=== PATIENT | female | born 1950 | race Caucasian/White ===

== ENCOUNTER → 2016-10-02 | Outpatient (CLI) | payer MEDICARE ==
--- NOTE | 2016-10-02 16:42 | PN ---
Mirta is 66 and the patient is being seen in follow-up regarding compliancy evaluation for obstructive sleep apnea. We will diagnose this patient with obstructive sleep apnea that has been moderate to severe in nature with an AHI of 21.5, worse during REM. Nevertheless, the patient had a difficult CPAP titration and ultimately she ended up being treated on a BiPAP and I have chose for her a VPAP auto with a pressure maximum IPAP of 16 and a pressure minimum EPAP of 10 cm of water. Today the patient is coming in for a compliancy follow-up. The patient is looking great. She reports much improvement in his sleep quality. Initially, she was having some difficulties knowing that had an upper respiratory tract infection and as her symptoms got better the patient became more compliant and she has been wearing her BiPAP every night. Her BiPAP use for more than 4 hours 87%. Average BiPAP use is 5 hours. The patient's AHI while on treatment is down to 0.6. She is using an AirFit P10 nasal pillow and she has no significant leaks around the nose mask. She is much more alert and awake during the day. Her Deming score is down to 6. PERTINENT PHYSICAL FINDINGS: PERTINENT VITALS: ; Blood pressure is 150/65, pulse 58, respirations 18, temperature 98.2, saturation is 95% on room air and weight is 225. GENERAL APPEARANCE: Calm, comfortable. HEENT: Short neck, crowding of posterior pharynx. There is no goiter, neck masses. LUNGS: Clear to auscultation. HEART: Sounds are regular rate and rhythm. Normal S1, S2. No murmurs. ABDOMEN: Soft, nontender. No organomegaly. EXTREMITIES: No edema. No cyanosis or clubbing. IMPRESSION: 1. Symptomatic obstructive sleep apnea, moderately severe, with an AHI of 21.5. The patient has seen significant clinical response and she has demonstrated good compliancy to BiPAP therapy. She is on a VPAP auto at this point with pressure IPAP max of 16 and a pressure minimum EPAP of 10. 2. Hypersomnia, improved. Deming score is down to 6. 3. Sleep fragmentation, improved. 4. Obesity with a body mass index of 39. 5. Hypertension. 6. Hyperlipidemia. 7. Cerebrovascular accident. 8. Chronic obstructive pulmonary disease with an FEV1 of 52% of predicted. PLAN: 1. Encourage further weight loss. 2. Continue BiPAP therapy at the same setting. The patient is on VPAP auto. 3. Continue using a small size AirFit P10 nasal pillow. 4. The patient is doing well. She is content with her treatment. Clinically, she has improved. Sleep quality has improved much with the treatment. I will see her back in a year's time in the main pulmonary clinic.
== END | disposition home or self-care (01) ==
LOC: SLEEP 13:31
PROVIDERS: ATTEND Internal Medicine Critical Care Medicine
DX: G47.33 Obstructive sleep apnea (adult) (pediatric) (principal); E66.9 Obesity, unspecified; Z68.39 Body mass index [BMI] 39.0-39.9, adult; Z86.73 Personal history of transient ischemic attack (TIA), and cerebral infarction without residual deficits; Z99.89 Dependence on other enabling machines and devices

== ENCOUNTER → 2016-11-26 | Outpatient (CLI) | payer MEDICARE ==
[2016-11-26 18:11] LABS: ALT 25 U/L (9-52); AST 20 U/L (14-36); Alkaline Phosphatase 36 U/L (38-126); Anion Gap 7 mmol/L; Blood Urea Nitrogen 21 mg/dL (7-17); Calcium 9.5 mg/dL (8.4-10.2); Carbon Dioxide 29 mmol/L (22-30); Chloride 105 mmol/L (98-107); Glucose 82 mg/dL (74-99); Non-African American GFR(MDRD) >60 (>60 ml/min/1.73 sqM); Potassium 3.7 mmol/L (3.5-5.1); Sodium 141 mmol/L (137-145); Total Bilirubin 0.5 mg/dL (0.2-1.3); Total Protein 7.2 g/dL (6.3-8.2)
== END | disposition home or self-care (01) ==
LOC: LABWHC1 17:10
PROVIDERS: ATTEND Internal Medicine Critical Care Medicine
DX: R60.0 Localized edema (principal)
CPT/HCPCS: 36415; 80053; 99214

== ENCOUNTER → 2016-12-05 | Outpatient (CLI) | payer MEDICARE ==
--- NOTE | 2016-12-06 11:03 | ECHOF ---
Referral Reason:I71.2 aneurysm of thoracic aorta MEASUREMENTS -------- HEIGHT: 157.5 cm WEIGHT: 97.5 kg BP: 110/53 RVIDd: 3.3 cm (< 3.3) IVSd: 1.3 cm (0.6 - 1.1) LVIDd: 4.5 cm (3.9 - 5.3) LVPWd: 1.2 cm (0.6 - 1.1) IVSs: 1.9 cm LVIDs: 3.2 cm LVPWs: 1.6 cm LA Diam: 3.1 cm (2.7 - 3.8) LAESV Index (A-L): 16.36 ml/m Ao Diam: 3.5 cm (2.0 - 3.7) AV Cusp: 2.0 cm (1.5 - 2.6) MV EXCURSION: 15.618 mm (> 18.000) MV EF SLOPE: 43 mm/s (70 - 150) EPSS: 0.4 cm MV E Gus: 0.79 m/s MV DecT: 302 ms MV A Gus: 0.70 m/s MV E/A Ratio: 1.13 FINDINGS -------- Sinus rhythm. This was a technically adequate study. The left ventricular size is normal. There is mild concentric left ventricular hypertrophy. Overall left ventricular systolic function is normal with, an EF between 60 - 65 %. The right ventricle is mildly enlarged. Normal LA size by volume 22+/-6 ml/m2. The right atrium is normal in size. Aortic valve is trileaflet and is mildly thickened. Trace to mild aortic regurgitation. Mild mitral annular calcification present. The tricuspid valve appears structurally normal. The pulmonic valve was not well visualized. The aortic root size is normal. Normal inferior vena cava with normal inspiratory collapse consistent with estimated right atrial pressure of 5 mmHg. The pericardium is normal. CONCLUSIONS -------- 1. Sinus rhythm. 2. Mild mitral annular calcification present. 3. The tricuspid valve appears structurally normal. 4. The pulmonic valve was not well visualized. 5. The aortic root size is normal. 6. Normal inferior vena cava with normal inspiratory collapse consistent with estimated right atrial pressure of 5 mmHg. 7. The pericardium is normal. 8. This was a technically adequate study. 9. The left ventricular size is normal. 10. There is mild concentric left ventricular hypertrophy. 11. Overall left ventricular systolic function is normal with, an EF between 60 - 65 %. 12. The right ventricle is mildly enlarged. 13. Normal LA size by volume 22+/-6 ml/m2. 14. Aortic valve is trileaflet and is mildly thickened. 15. Trace to mild aortic regurgitation. FINISHING RANGE FEEDER: Jaz Dunn RDCS
== END | disposition home or self-care (01) ==
LOC: RADECHMAIN 13:13
PROVIDERS: ATTEND Internal Medicine Critical Care Medicine
DX: I35.1 Nonrheumatic aortic (valve) insufficiency (principal); I51.7 Cardiomegaly; I35.8 Other nonrheumatic aortic valve disorders
CPT/HCPCS: 93306

== ENCOUNTER → 2017-01-18 | Outpatient (CLI) | payer MEDICARE ==
[2017-01-18 09:02] LABS: Non-African American GFR(MDRD) >60 (>60 ml/min/1.73 sqM)
== END | disposition home or self-care (01) ==
LOC: LABWHC1 08:18
PROVIDERS: ATTEND Surgery
DX: I71.2 Thoracic aortic aneurysm, without rupture (principal)
CPT/HCPCS: 36415; 82565

== ENCOUNTER → 2017-08-16 | Outpatient (CLI) | payer MEDICARE ==
[2017-08-16 10:29] LABS: Basophils % (A) 1 %; Eosinophils # (A) 0.2 k/uL (0-0.7); Eosinophils % (A) 3 %; HCT 46.5 % (34.0-46.0); HGB 14.8 gm/dL (11.4-16.0); Lymphocytes # (A) 1.8 k/uL (1.0-4.8); Lymphocytes % (A) 34 %; MCH 30.4 pg (25.0-35.0); MCHC 31.9 g/dL (31.0-37.0); MCV 95.4 fL (80.0-100.0); Mean Platelet Volume 6.6; Monocytes # (A) 0.3 k/uL (0-1.0); Monocytes % (A) 6 %; Neutrophils # (A) 2.8 k/uL (1.3-7.7); Neutrophils % (A) 54 %; Platelet Count 243 k/uL (150-450); RBC 4.87 m/uL (3.80-5.40); RDW 12.9 % (11.5-15.5); WBC 5.2 k/uL (3.8-10.6)
[2017-08-16 10:44] LABS: ALT 26 U/L (9-52); AST 23 U/L (14-36); Albumin 3.9 g/dL (3.5-5.0); Alkaline Phosphatase 37 U/L (38-126); Anion Gap 8 mmol/L; Blood Urea Nitrogen 16 mg/dL (7-17); Calcium 9.6 mg/dL (8.4-10.2); Carbon Dioxide 30 mmol/L (22-30); Chloride 106 mmol/L (98-107); Cholesterol 155 mg/dL (<200); Glucose 84 mg/dL (74-99); HDL Cholesterol 55 mg/dL (40-60); LDL Cholesterol,Calculated 70 mg/dL (0-99); Sodium 144 mmol/L (137-145); Total Bilirubin 0.5 mg/dL (0.2-1.3); Total Protein 6.7 g/dL (6.3-8.2); Triglycerides 152 mg/dL (<150)
== END | disposition home or self-care (01) ==
LOC: LABPAT 09:45
PROVIDERS: ATTEND Surgery
DX: Z01.818 Encounter for other preprocedural examination (principal); E78.5 Hyperlipidemia, unspecified; I10 Essential (primary) hypertension; E66.9 Obesity, unspecified; Z01.812 Encounter for preprocedural laboratory examination
CPT/HCPCS: 36415; 80053; 80061; 84443; 85025; 86850; 86900; 86901; 93005

== ENCOUNTER → 2017-08-16 | Outpatient (CLI) | payer MEDICARE ==
[2017-08-16 11:39] LABS: Anion Gap 8 mmol/L; Blood Urea Nitrogen 16 mg/dL (7-17); Carbon Dioxide 30 mmol/L (22-30); Chloride 106 mmol/L (98-107); Glucose 84 mg/dL (74-99); Sodium 144 mmol/L (137-145)
[2017-08-16 11:40] LABS: ALT 26 U/L (9-52); AST 23 U/L (14-36); Albumin 3.9 g/dL (3.5-5.0); Alkaline Phosphatase 37 U/L (38-126); Calcium 9.6 mg/dL (8.4-10.2); Cholesterol 155 mg/dL (<200); HDL Cholesterol 55 mg/dL (40-60); LDL Cholesterol,Calculated 70 mg/dL (0-99); Total Bilirubin 0.5 mg/dL (0.2-1.3); Total Protein 6.7 g/dL (6.3-8.2); Triglycerides 152 mg/dL (<150)
== END | disposition home or self-care (01) ==
LOC: LABWHC1 10:59
PROVIDERS: ATTEND Nurse Practitioner Family
DX: E78.5 Hyperlipidemia, unspecified (principal); I10 Essential (primary) hypertension; E66.9 Obesity, unspecified
CPT/HCPCS: 36415; 80053; 80061; 84443

== ENCOUNTER 2017-08-21 07:03 | Day surgery (SDC) | payer MEDICARE ==
[2017-08-15 15:50] VITALS: BMI 36.6
[~2017-08-21 07:03] MED LIST: DEXAMETHASONE SOD PHOSPHATE 10 MG/ML 1 ML VIAL IV ONE; HEPARIN SODIUM,PORCINE 5,000 UNIT/ML 1 ML VIAL SQ ONE; LACTATED RINGERS 1,000 ML IV SCH; ONDANSETRON 4 MG/2 ML VIAL IVP ONE; ceFAZolin IN SWFI 2 GM/20 ML SYRINGE IVP ONE
[2017-08-21] MEDS ORDERED: LIDOCAINE 1% 20 ML VIAL (10MG/ML) FOR IV START INTRADERMA ONE (07:40)
[2017-08-21] MEDS ORDERED: BUPIVACAINE (PF) 0.25% 30 ML VIAL SQ ONE (07:50)
[2017-08-21] MEDS ORDERED: NEOSTIGMINE 1 MG/ML 10 ML VIAL ONE (07:57)
[2017-08-21] MEDS ORDERED: fentaNYL (PF) 50 MCG/ML 2 ML AMP ONE (07:57)
[2017-08-21] MEDS ORDERED: SUCCINYLCHOLINE CHLORIDE 100 MG/5 ML SYR IV ONE (07:57)
[2017-08-21] MEDS ORDERED: MIDAZOLAM 2 MG/2 ML VIAL ONE (07:57)
[2017-08-21] MEDS ORDERED: GLYCOPYRROLATE 0.2 MG/ML 2 ML VIAL ONE (07:57)
[2017-08-21] MEDS ORDERED: PROPOFOL 10 MG/ML 20 ML VIAL IV ONE (07:57)
[2017-08-21] MEDS ORDERED: ePHEDrine SULFATE/0.9% NACL/PF 50 MG/5 ML SYRINGE IV ONE (07:57)
[2017-08-21] MEDS ORDERED: LIDOCAINE 1% INJ 10MG/ML (20 ML MDV) ONE (07:57)
[2017-08-21] MEDS ORDERED: ROCURONIUM BROMIDE 10 MG/ML 10 ML VIAL IV ONE (07:57)
--- NOTE | 2017-08-21 08:00 | P.GSHP ---
History of Present Illness H&P Date: 08/21/17 Chief Complaint: Incisional hernia This is a 67-year-old female who presents today for laparoscopic robotic- assisted repair of incisional hernia. Patient has developed an incisional hernia located at the medial aspect of her right subcostal incision related to previous gallbladder surgery years ago. Past Medical History Past Medical History: Coronary Artery Disease (CAD), Cancer, COPD, CVA/TIA, GERD /Reflux, Hyperlipidemia, Hypertension, Myocardial Infarction ([place]), Sleep Apnea/ CPAP/BIPAP Additional Past Medical History / Comment(s): TB in 1985. CPAP MACHINE , SKIN CANCER Last Myocardial Infarction Date:: 01/25/2006 History of Any Multi-Drug Resistant Organisms: None Reported Past Surgical History: Cholecystectomy, Heart Catheterization With Stent Additional Past Surgical History / Comment(s): cyst removed from thyroid, HEART CATH WITH STENT X2, SURGERY FOR thorasic aorta anyrusm Past Anesthesia/Blood Transfusion Reactions: Postoperative Nausea & Vomiting ( PONV) Date of Last Stent Placement:: 2009 Past Psychological History: Depression Smoking Status: Former smoker Past Alcohol Use History: Occasional Additional Past Alcohol Use History / Comment(s): STARTED SMOJKING AT AGE 15 QUIT IN 2011 SMOKED 1PPD Past Drug Use History: Marijuana Additional Drug Use History / Comment(s): OCCASIONAL USE - Past Family History Father Family Medical History: COPD, Myocardial Infarction ([place]) Mother Family Medical History: Hypertension Additional Family Medical History / Comment(s): Pacer, heart issues Medications and Allergies Home Medications Medication Instructions Recorded Confirmed Type Aspirin 81 mg PO DAILY 05/01/16 08/15/17 History Citalopram Hydrobromide [CeleXA] 20 mg PO DAILY 05/01/16 08/15/17 History Hydrochlorothiazide 12.5 mg PO DAILY 05/01/16 08/15/17 History Metoprolol Tartrate [Lopressor] 25 mg PO BID 05/01/16 08/15/17 History Simvastatin [Zocor] 40 mg PO QAM 05/01/16 08/15/17 History Tiotropium [place] [Spiriva] 1 cap INHALATION RT-DAILY 05/01/16 08/15/17 History amLODIPine [Norvasc] 10 mg PO DAILY 05/01/16 08/15/17 History cloNIDine HCL [Catapres] 0.1 mg PO TID 05/01/16 08/15/17 History Furosemide [Lasix] 20 mg PO DAILY 08/15/17 08/15/17 History Allergies Allergy/AdvReac Type Severity Reaction Status Date / Time levofloxacin [From Levaquin] Allergy Rash/Hives Verified 08/15/17 14:52 Penicillins Allergy Rash/Hives Verified 08/15/17 14:52 Sulfa (Sulfonamide Allergy Rash/Hives Verified 08/15/17 14:52 Antibiotics) sulfamethoxazole Allergy Rash/Hives Verified 08/15/17 14:52 [From Bactrim] trimethoprim [From Bactrim] Allergy Rash/Hives Verified 08/15/17 14:52 Surgical - Exam Vital Signs Temp Pulse Resp BP Pulse Ox 97.5 F L 47 L 20 125/72 96 08/21/17 07:26 08/21/17 07:26 08/21/17 07:26 08/21/17 07:26 08/21/17 07:26 - General well developed, well nourished, no distress - Eyes PERRL - ENT normal pinna - Neck no masses - Respiratory normal expansion - Cardiovascular Rhythm: regular - Abdomen Abdomen: soft, non tender Hernia: incisional (10 cm incisional hernia located at the medial aspect of right subcostal incision.) Assessment and Plan Assessment: Incisional hernia. We'll perform laparoscopic robotic assistance repair.
[2017-08-21] MEDS ORDERED: LACTATED RINGERS 1,000 ML IV ONE (08:37)
[2017-08-21] MEDS: HYDROmorphone 0.5 MG/0.5 ML SYRINGE IVP PRN ×4 (09:47→10:14)
[2017-08-21 09:50] VITALS: RESP 16; TEMP 97
--- NOTE | 2017-08-21 09:56 | P.OP ---
Date of Procedure: 08/21/17 Preoperative Diagnosis: Incarcerated incisional hernia Postoperative Diagnosis: Incarcerated incisional hernia Adhesions Procedure(s) Performed: Laparoscopic lysis of adhesions Laparoscopic robotic system repair of incarcerated incisional hernia Partial omentectomy Anesthesia: SALLY Surgeon: Jose Hamilton Estimated Blood Loss (ml): 5 Pathology: other (Omentum) Condition: stable Disposition: PACU Description of Procedure: The patient was placed on the operating table in the supine position. The patient received general anesthesia. His abdomen was prepped and draped usual fashion. Using a 5 mm optical trocar under direct visualization the peritoneal cavity was entered in the left upper quadrant. The abdomen was then insufflated. The laparoscope was placed back into the perineal cavity. Next a 8 mm robotic trocar was placed in the left lower quadrant and a 12 mm robotic trocar was placed in the left lateral position. The original 5 mm trocar was exchanged for a 8 mm robotic trocar. The patient's placed in the left side up position. And the patient was docked to the robot. The incisional hernia was visualized. Using hook cautery the peritoneum over the incisional hernia was excised. The adhesions in the abdominal cavity placed using electrocautery. The incarcerated omentum was dissected free from the hernia. The fascial opening was repaired using 0V LOC suture. Next a piece of 11 cm round ventral light ST mesh was placed into the. Cavity and secured with 2 OV lock suture. The patient was undocked the robot. The needles were retrieved. The fascia of the 12 mm trocar site was closed with 0 Ethibond suture. Skin was closed interrupted 3-0 Monocryl suture. Dermabond dressings was applied. Patient tolerated procedure well and was sent to recovery room stable condition.
[2017-08-21] MEDS ORDERED: HYDROcodone/APAP 7.5-325MG 1 EACH TAB PO ONE ×2 (10:48)
[2017-08-21] MEDS ORDERED: ONDANSETRON 4 MG/2 ML VIAL IVP ONE (12:00)
[2017-08-21 12:50] VITALS: PULSE 54
[2017-08-21 13:09] VITALS: BP 132/70
== END 2017-08-21 13:18 | disposition home or self-care (01) ==
LOC: OR 07:03
PROVIDERS: ATTEND Surgery
DX: K43.0 Incisional hernia with obstruction, without gangrene (principal); K66.0 Peritoneal adhesions (postprocedural) (postinfection); I25.10 Atherosclerotic heart disease of native coronary artery without angina pectoris; I10 Essential (primary) hypertension; I69.398 Other sequelae of cerebral infarction; E78.5 Hyperlipidemia, unspecified; J44.9 Chronic obstructive pulmonary disease, unspecified; G47.30 Sleep apnea, unspecified; Z99.89 Dependence on other enabling machines and devices; K21.9 Gastro-esophageal reflux disease without esophagitis; I25.2 Old myocardial infarction; F32.9 Major depressive disorder, single episode, unspecified; Z87.891 Personal history of nicotine dependence; Z86.11 Personal history of tuberculosis; Z85.828 Personal history of other malignant neoplasm of skin; Z95.5 Presence of coronary angioplasty implant and graft; Z79.82 Long term (current) use of aspirin; Z79.51 Long term (current) use of inhaled steroids; Z79.899 Other long term (current) drug therapy; Z88.1 Allergy status to other antibiotic agents; Z88.0 Allergy status to penicillin; Z88.2 Allergy status to sulfonamides
CPT/HCPCS: 88305; 49655; C1781; J2250; J1644; J1100; J2710; J2405; J2001; J3010; J0330; J2704; J1170; J0690; 86850; 86900; 86901

== ENCOUNTER → 2017-09-16 | Outpatient (CLI) | payer MEDICARE ==
[2017-09-16 13:09] VITALS: BP 143/63; PULSE 62; RESP 16; TEMP 98; BMI 41.7
--- NOTE | 2017-09-17 11:46 | P.HPBAR ---
Bariatric H&P - History & Physicial H&P Date: 09/16/17 History & Physicial: Visit/CC: Initial Visit Patient initial contact: Initial weight: 103.419 kg Initial weight in pounds: 228.00 Height: 5 ft 2 in Initial BMI: 41.7 Last weight: Current weight: 103.419 kg Current weight in pounds: 228.00 Current BMI: 41.7 [place] body weight (based on NIH guidelines): 49.895 kg Excess body weight loss: 0.0% The patient is a 67 year-old F who presents for Bariatric Assessment. The patient presents today for preoperative consultation. She has had lifetime problems obesity. Her BMI is 42. The patient is requesting sleeve gastrectomy. Past Medical History Past Medical History: Coronary Artery Disease (CAD), Cancer, COPD, CVA/TIA, GERD /Reflux, Hyperlipidemia, Hypertension, Myocardial Infarction ([place]), Sleep Apnea/ CPAP/BIPAP Additional Past Medical History / Comment(s): TB in 1985. CPAP MACHINE , SKIN CANCER Last Myocardial Infarction Date:: 01/25/2006 History of Any Multi-Drug Resistant Organisms: None Reported Past Surgical History: Cholecystectomy, Heart Catheterization With Stent, Hernia Repair Additional Past Surgical History / Comment(s): cyst removed from thyroid, HEART CATH WITH STENT X2, SURGERY FOR thoracic aortic aneurysm, Ventral hernia repair with mesh July 2017 Past Anesthesia/Blood Transfusion Reactions: Postoperative Nausea & Vomiting ( PONV) Date of Last Stent Placement:: 2009 Past Psychological History: Depression Smoking Status: Former smoker Past Alcohol Use History: Occasional Additional Past Alcohol Use History / Comment(s): STARTED SMOJKING AT AGE 15 QUIT IN 2011 SMOKED 1PPD Past Drug Use History: Marijuana Additional Drug Use History / Comment(s): OCCASIONAL USE - Past Family History Father Family Medical History: COPD, Myocardial Infarction ([place]) Mother Family Medical History: Hypertension Additional Family Medical History / Comment(s): Pacer, heart issues Surgical - Exam Vital Signs Temp Pulse Resp BP 98 F 62 16 143/63 09/16/17 13:05 09/16/17 13:05 09/16/17 13:05 09/16/17 13:05 - General well developed, no distress - Eyes PERRL - ENT normal pinna - Neck no masses - Respiratory normal expansion - Cardiovascular Rhythm: regular - Abdomen Abdomen: soft, non tender Bariatric Assessment & Plan Plan: The patient's has had morbid obesity. Her BMI is 42. The patient will be scheduled for EGD. We will attempt to obtain insurance authorization proceed gastric. However over the risks and benefits of significant gastric including issues with the gastric staple line such as bleeding perforation obstruction. Bariatric Checklist Checklist: Plan: Checklist: EGD: 1. Hiatal hernia: 2. H. Pylori: HgbA1c: Vitamin D: Smoking: Former smoker Primary care physician referral: dr. Gale Psychiatry clearance: Cardiology clearance: Sleep study: Diet journal: VTE risk score: VTE risk level: Rehab needs at discharge:
== END | disposition home or self-care (01) ==
LOC: BARWHC3 12:31
PROVIDERS: ATTEND Surgery
DX: Z01.818 Encounter for other preprocedural examination (principal); E66.01 Morbid (severe) obesity due to excess calories; Z68.41 Body mass index [BMI] 40.0-44.9, adult; Z87.891 Personal history of nicotine dependence
CPT/HCPCS: 99201

== ENCOUNTER 2017-11-11 09:00 | Day surgery (SDC) | payer MEDICARE ==
[2017-11-07 10:20] VITALS: BMI 36.6
[~2017-11-11 09:00] MED LIST changes: -DEXAMETHASONE SOD PHOSPHATE 10 MG/ML 1 ML VIAL IV ONE; -HEPARIN SODIUM,PORCINE 5,000 UNIT/ML 1 ML VIAL SQ ONE; +LIDOCAINE 1% 20 ML VIAL (10MG/ML) FOR IV START INTRADERMA PRN; +MIDAZOLAM 2 MG/2 ML VIAL IV PRN; -ONDANSETRON 4 MG/2 ML VIAL IVP ONE; -ceFAZolin IN SWFI 2 GM/20 ML SYRINGE IVP ONE
[2017-11-11 09:33] VITALS: TEMP 98.1
[2017-11-11] MEDS ORDERED: LIDOCAINE 1% INJ 10MG/ML (20 ML MDV) ONE (09:58)
[2017-11-11] MEDS ORDERED: PROPOFOL 10 MG/ML 20 ML VIAL IV ONE (09:58)
--- NOTE | 2017-11-11 09:59 | P.GSHP ---
History of Present Illness H&P Date: 11/11/17 Chief Complaint: Morbid obesity, GERD This is a 67-year-old female referred from Dr. asher. Patient presents today for EGD. She's had complaints of GERD. She's morbid obesity, her BMI is 37. Past Medical History Past Medical History: Coronary Artery Disease (CAD), Cancer, COPD, CVA/TIA, Hyperlipidemia, Hypertension, Myocardial Infarction ([place]), Sleep Apnea/CPAP/BIPAP Additional Past Medical History / Comment(s): TB in 1985. CPAP MACHINE. SKIN CANCER. RT SIDE WEAKNESS, SL DYSPHAGIA. Last Myocardial Infarction Date:: 01/25/2006 History of Any Multi-Drug Resistant Organisms: None Reported Past Surgical History: Cholecystectomy, Heart Catheterization With Stent, Hernia Repair Additional Past Surgical History / Comment(s): Cyst removed from thyroid, HEART CATH WITH STENT X2, SURGERY FOR Thoracic Aortic Aneurysm, Ventral hernia repair with mesh July 2017. EGD, COLONOSCOPY. Past Anesthesia/Blood Transfusion Reactions: Postoperative Nausea & Vomiting ( PONV) Date of Last Stent Placement:: 2009 Smoking Status: Former smoker - Past Family History Father Family Medical History: COPD, Myocardial Infarction ([place]) Mother Family Medical History: Hypertension Additional Family Medical History / Comment(s): Pacer, heart issues Sister(s) Family Medical History: Cancer Medications and Allergies Home Medications Medication Instructions Recorded Confirmed Type Aspirin 81 mg PO DAILY 05/01/16 11/11/17 History Citalopram Hydrobromide [CeleXA] 20 mg PO DAILY 05/01/16 11/11/17 History Hydrochlorothiazide 12.5 mg PO DAILY 05/01/16 11/11/17 History Metoprolol Tartrate [Lopressor] 25 mg PO BID 05/01/16 11/11/17 History Simvastatin [Zocor] 40 mg PO QAM 05/01/16 11/11/17 History Tiotropium [place] [Spiriva] 1 cap INHALATION RT-DAILY 05/01/16 11/11/17 History amLODIPine [Norvasc] 10 mg PO DAILY 05/01/16 11/11/17 History cloNIDine HCL [Catapres] 0.1 mg PO TID 05/01/16 11/11/17 History Furosemide [Lasix] 40 mg PO DAILY 09/16/17 11/11/17 History Umeclidinium [place] [Incruse 1 puff INHALATION DAILY 11/07/17 11/11/17 History Ellipta] Allergies Allergy/AdvReac Type Severity Reaction Status Date / Time levofloxacin [From Levaquin] Allergy Rash/Hives Verified 11/11/17 09:27 Penicillins Allergy Rash/Hives Verified 11/11/17 09:27 Sulfa (Sulfonamide Allergy Rash/Hives Verified 11/11/17 09:27 Antibiotics) sulfamethoxazole Allergy Rash/Hives Verified 11/11/17 09:27 [From Bactrim] trimethoprim [From Bactrim] Allergy Rash/Hives Verified 11/11/17 09:27 Surgical - Exam Vital Signs Temp Pulse Resp BP Pulse Ox 98.1 F 55 L 16 142/78 94 L 11/11/17 09:32 11/11/17 09:32 11/11/17 09:32 11/11/17 09:32 11/11/17 09:32 - General well developed, no distress - Eyes PERRL - ENT normal pinna - Neck no masses - Respiratory normal expansion - Cardiovascular Rhythm: regular - Abdomen Abdomen: soft, non tender Assessment and Plan Assessment: Morbid obesity. GERD. We'll perform EGD.
--- NOTE | 2017-11-11 10:09 | P.OP ---
Date of Procedure: 11/11/17 Preoperative Diagnosis: GERD Morbid obesity Postoperative Diagnosis: Morbid obesity Antral gastritis Hiatal hernia Mild esophagitis Procedure(s) Performed: EGD Anesthesia: MAC Surgeon: Jose Hamilton Pathology: other (Antrum, esophagus) Condition: stable Disposition: PACU Description of Procedure: The patient's placed on the endoscopy table lateral position. She received IV sedation. The gastroscope placed oropharynx and passed into the esophagus into the stomach. Scope was then placed through the pylorus. The first and second portion of the duodenum appeared normal. Scope was then brought back the antrum and this appeared mildly inflamed. A biopsies performed. The scope was then retroflexed and the remainder of the stomach appeared normal. The patient had a large sliding hiatal hernia. The GE junction was at 38 cm. The distal esophagus appeared mildly inflamed and a biopsies performed. The proximal esophagus appeared normal. The scope was withdrawn for patient.
[2017-11-11 10:13] VITALS: RESP 18
[2017-11-11 10:29] VITALS: BP 151/90; PULSE 54
== END 2017-11-11 10:40 | disposition home or self-care (01) ==
LOC: ORWHC2ENDO 09:00
PROVIDERS: ATTEND Surgery
DX: K29.70 Gastritis, unspecified, without bleeding (principal); E66.01 Morbid (severe) obesity due to excess calories; E78.5 Hyperlipidemia, unspecified; I10 Essential (primary) hypertension; I25.10 Atherosclerotic heart disease of native coronary artery without angina pectoris; I25.2 Old myocardial infarction; J44.9 Chronic obstructive pulmonary disease, unspecified; K21.0 Gastro-esophageal reflux disease with esophagitis; G47.33 Obstructive sleep apnea (adult) (pediatric); Z88.0 Allergy status to penicillin; Z87.891 Personal history of nicotine dependence; Z86.73 Personal history of transient ischemic attack (TIA), and cerebral infarction without residual deficits; Z85.828 Personal history of other malignant neoplasm of skin; K44.9 Diaphragmatic hernia without obstruction or gangrene; Z79.82 Long term (current) use of aspirin; Z99.89 Dependence on other enabling machines and devices; Z95.5 Presence of coronary angioplasty implant and graft; Z90.49 Acquired absence of other specified parts of digestive tract; Z82.49 Family history of ischemic heart disease and other diseases of the circulatory system; Z79.899 Other long term (current) drug therapy; Z88.1 Allergy status to other antibiotic agents; Z88.2 Allergy status to sulfonamides; Z79.51 Long term (current) use of inhaled steroids; Z68.36 Body mass index [BMI] 36.0-36.9, adult
CPT/HCPCS: 88305; 43239; J2001; J2704

== ENCOUNTER → 2017-11-25 | Outpatient (CLI) | payer MEDICARE ==
[2017-11-25 13:47] VITALS: BP 147/80; PULSE 54; RESP 14; TEMP 98.6; BMI 40.4
--- NOTE | 2017-11-25 15:25 | P.HPBAR ---
Bariatric H&P - History & Physicial H&P Date: 11/25/17 History & Physicial: Visit/CC: EGD results (working toward bariatric surgery requirements) Patient initial contact: Initial weight: 103.419 kg Initial weight in pounds: 228.00 Height: 5 ft 2 in Initial BMI: 41.7 Last weight: Current weight: 100.108 kg Current weight in pounds: 220.70 Current BMI: 40.4 [place] body weight (based on NIH guidelines): 49.895 kg Excess body weight loss: 6.1% The patient is a 67 year-old F who presents for Bariatric Assessment. Patient presents today for second preoperative visit. Patient is requesting undergo sleeve yesterday. She underwent recent EGD is found have evidence of a hiatal hernia and GERD. She is morbidly obese with a BMI of 41. Past Medical History Past Medical History: Coronary Artery Disease (CAD), Cancer, COPD, CVA/TIA, Hyperlipidemia, Hypertension, Myocardial Infarction ([place]), Sleep Apnea/CPAP/BIPAP Additional Past Medical History / Comment(s): TB in 1985. CPAP MACHINE. SKIN CANCER. RT SIDE WEAKNESS, SL DYSPHAGIA. Hiatal hernia Last Myocardial Infarction Date:: 01/25/2006 History of Any Multi-Drug Resistant Organisms: None Reported Past Surgical History: Cholecystectomy, Heart Catheterization With Stent, Hernia Repair Additional Past Surgical History / Comment(s): Cyst removed from thyroid, HEART CATH WITH STENT X2, SURGERY FOR Thoracic Aortic Aneurysm, Ventral hernia repair with mesh July 2017. EGD, COLONOSCOPY. Past Anesthesia/Blood Transfusion Reactions: Postoperative Nausea & Vomiting ( PONV) Date of Last Stent Placement:: 2009 Past Psychological History: Depression Smoking Status: Former smoker Past Alcohol Use History: Occasional Additional Past Alcohol Use History / Comment(s): STARTED SMOKING AT AGE 15, QUIT IN 2011 SMOKED 1PPD. Past Drug Use History: Marijuana Additional Drug Use History / Comment(s): PAST HISTORY - Past Family History Father Family Medical History: COPD, Myocardial Infarction ([place]) Mother Family Medical History: Hypertension Additional Family Medical History / Comment(s): Pacer, heart issues Sister(s) Family Medical History: Cancer Surgical - Exam Vital Signs Temp Pulse Resp BP 98.6 F 54 L 14 147/80 11/25/17 13:37 11/25/17 13:37 11/25/17 13:37 11/25/17 13:37 - General well developed, no distress - Respiratory normal expansion - Abdomen Abdomen: soft, non tender Bariatric Assessment & Plan Plan: Patient's understanding of the gastric sleeve was excellent. We went over the procedure again. We went over the risks and benefits of procedure. She is aware the risks of gastric perforation. She'll be scheduled for surgery once her authorization is complete. Bariatric Checklist Checklist: Plan: Checklist: EGD: 1. Hiatal hernia: 2. H. Pylori: HgbA1c: Vitamin D: Smoking: Former smoker Primary care physician referral: Bachelodor Psychiatry clearance: Cardiology clearance: Sleep study: Diet journal: VTE risk score: VTE risk level: Rehab needs at discharge:
== END | disposition home or self-care (01) ==
LOC: BARWHC3 12:55
PROVIDERS: ATTEND Surgery
DX: Z01.818 Encounter for other preprocedural examination (principal); Z87.891 Personal history of nicotine dependence
CPT/HCPCS: 99211

== ENCOUNTER → 2018-01-27 | Outpatient (CLI) | payer MEDICARE ==
[2018-01-27 12:49] VITALS: BMI 40.8
== END ==
LOC: BARWHC3 08:15
PROVIDERS: ATTEND Surgery
DX: E66.01 Morbid (severe) obesity due to excess calories (principal)
CPT/HCPCS: 97804

== ENCOUNTER → 2018-05-05 | Outpatient (CLI) | payer MEDICARE ==
[2018-05-05 14:41] VITALS: BP 151/72; PULSE 62; TEMP 97.9; BMI 40.0
--- NOTE | 2018-05-05 16:33 | P.HPBAR ---
Bariatric H&P - History & Physicial H&P Date: 05/05/18 History & Physicial: Visit/CC: preop cinic visit Patient initial contact: Initial weight: 103.419 kg Initial weight in pounds: 228.00 Height: 5 ft 2 in Initial BMI: 41.7 Last weight: Current weight: 99.337 kg Current weight in pounds: 219.00 Current BMI: 40.0 [place] body weight (based on NIH guidelines): 49.895 kg Excess body weight loss: 7.6% The patient is a 68 year-old F who presents for Bariatric Assessment. Patient presents for preoperative surgical consultation for sleeve gastrectomy. She is recently obtain authorization. Patient is morbidly obese with BMI of 40. Past Medical History Past Medical History: Coronary Artery Disease (CAD), Cancer, COPD, CVA/TIA, Hyperlipidemia, Hypertension, Myocardial Infarction ([place]), Sleep Apnea/CPAP/BIPAP Additional Past Medical History / Comment(s): TB in 1985. CPAP MACHINE. SKIN CANCER. RT SIDE WEAKNESS, SL DYSPHAGIA. Hiatal hernia Last Myocardial Infarction Date:: 01/25/2006 History of Any Multi-Drug Resistant Organisms: None Reported Past Surgical History: Cholecystectomy, Heart Catheterization With Stent, Hernia Repair Additional Past Surgical History / Comment(s): Cyst removed from thyroid, HEART CATH WITH STENT X2, SURGERY FOR Thoracic Aortic Aneurysm, Ventral hernia repair with mesh July 2017. EGD, COLONOSCOPY. Past Anesthesia/Blood Transfusion Reactions: Postoperative Nausea & Vomiting ( PONV) Date of Last Stent Placement:: 2009 Past Psychological History: Depression Smoking Status: Former smoker Past Alcohol Use History: Occasional Additional Past Alcohol Use History / Comment(s): STARTED SMOKING AT AGE 15, QUIT IN 2011 SMOKED 1PPD. Past Drug Use History: Marijuana Additional Drug Use History / Comment(s): PAST HISTORY - Past Family History Father Family Medical History: COPD, Myocardial Infarction ([place]) Mother Family Medical History: Hypertension Additional Family Medical History / Comment(s): Pacer, heart issues Sister(s) Family Medical History: Cancer Surgical - Exam Vital Signs Temp Pulse BP 97.9 F 62 151/72 05/05/18 14:32 05/05/18 14:32 05/05/18 14:32 - General well developed, no distress - Eyes PERRL - ENT normal pinna - Neck no masses - Respiratory normal expansion - Cardiovascular Rhythm: regular - Abdomen Abdomen: soft, non tender Bariatric Assessment & Plan Plan: Morbid obesity with BMI 40. Patient will be scheduled for sleeve gastrectomy. She has a good understanding of the sleeve gastrectomy. She understands the risks and benefits of the procedure. Bariatric Checklist Checklist: Plan: Checklist: EGD: 1. Hiatal hernia: 2. H. Pylori: HgbA1c: Vitamin D: Smoking: Former smoker Primary care physician referral: dr. Hesteror Psychiatry clearance: Cardiology clearance: Sleep study: Diet journal: VTE risk score: VTE risk level: Rehab needs at discharge:
== END ==
LOC: BARWHC3 13:52
PROVIDERS: ATTEND Surgery
DX: E66.01 Morbid (severe) obesity due to excess calories (principal); Z68.41 Body mass index [BMI] 40.0-44.9, adult; Z87.891 Personal history of nicotine dependence
CPT/HCPCS: 99211

== ENCOUNTER → 2018-05-05 | Outpatient (CLI) | payer MEDICARE ==
[2018-05-05 15:09] LABS: Basophils # (A) 0.1 k/uL (0-0.2); Basophils % (A) 1 %; Eosinophils # (A) 0.3 k/uL (0-0.7); Eosinophils % (A) 4 %; HCT 43.8 % (34.0-46.0); HGB 14.5 gm/dL (11.4-16.0); Lymphocytes # (A) 2.6 k/uL (1.0-4.8); Lymphocytes % (A) 28 %; MCH 30.6 pg (25.0-35.0); MCV 92.8 fL (80.0-100.0); Mean Platelet Volume 6.5; Monocytes # (A) 0.5 k/uL (0-1.0); Monocytes % (A) 5 %; Neutrophils # (A) 5.8 k/uL (1.3-7.7); Neutrophils % (A) 61 %; Platelet Count 300 k/uL (150-450); RBC 4.72 m/uL (3.80-5.40); RDW 13.4 % (11.5-15.5); WBC 9.4 k/uL (3.8-10.6)
[2018-05-05 15:20] LABS: ALT 21 U/L (9-52); AST 50 U/L (14-36); Alkaline Phosphatase 36 U/L (38-126); Anion Gap 12 mmol/L; Blood Urea Nitrogen 20 mg/dL (7-17); Calcium 10.3 mg/dL (8.4-10.2); Carbon Dioxide 28 mmol/L (22-30); Chloride 103 mmol/L (98-107); Glucose 89 mg/dL (74-99); Potassium 3.7 mmol/L (3.5-5.1); Sodium 143 mmol/L (137-145); Total Bilirubin 0.7 mg/dL (0.2-1.3); Total Protein 7.1 g/dL (6.3-8.2)
== END ==
LOC: LABPAT 14:51
PROVIDERS: ATTEND Surgery
DX: Z01.812 Encounter for preprocedural laboratory examination (principal)
CPT/HCPCS: 36415; 80053; 85025

== ENCOUNTER 2018-05-19 08:00 | Inpatient (IN) | payer MEDICARE ==
[~2018-05-19 08:00] MED LIST changes: +DEXAMETHASONE SOD PHOSPHATE 10 MG/ML 1 ML VIAL IV ONE; +ENOXAPARIN 40 MG/0.4 ML SYRINGE SQ ONE; -LACTATED RINGERS 1,000 ML IV SCH; -LIDOCAINE 1% 20 ML VIAL (10MG/ML) FOR IV START INTRADERMA PRN; +ONDANSETRON 4 MG/2 ML VIAL IVP ONE; +ceFAZolin IN SWFI 2 GM/20 ML SYRINGE IVP ONE
--- NOTE | 2018-05-19 08:45 | P.GSHP ---
History of Present Illness H&P Date: 05/19/18 Chief Complaint: Morbid obesity, BMI 40 This is a 60-year-old female who presents today for laparoscopic sleeve gastrectomy. Patient has had lifetime problems obesity. Her BMI is 40. She has multiple comorbidities related to morbid obesity. Patient aware the risk of gastric sleeve including conversion the open procedure and injury to the stomach, liver and spleen. She also aware the risk of possible sleeve perforation, bleeding or scarring Past Medical History Past Medical History: Coronary Artery Disease (CAD), Cancer, COPD, CVA/TIA, GERD /Reflux, Hyperlipidemia, Hypertension, Myocardial Infarction (OR), Sleep Apnea/ CPAP/BIPAP Additional Past Medical History / Comment(s): TB in 1985. CPAP MACHINE. SKIN CANCER. 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 Hiatal hernia Last Myocardial Infarction Date:: 01/25/2006 History of Any Multi-Drug Resistant Organisms: None Reported Past Surgical History: Cholecystectomy, Heart Catheterization With Stent, Hernia Repair Additional Past Surgical History / Comment(s): Cyst removed from thyroid, HEART CATH WITH STENT X2, SURGERY FOR Thoracic Aortic Aneurysm, Ventral hernia repair with mesh July 2017. EGD, COLONOSCOPY. Past Anesthesia/Blood Transfusion Reactions: Postoperative Nausea & Vomiting ( PONV) Date of Last Stent Placement:: 2009 Smoking Status: Former smoker - Past Family History Father Family Medical History: COPD, Myocardial Infarction (OR) Mother Family Medical History: Hypertension Additional Family Medical History / Comment(s): Pacemaker, heart issues Sister(s) Family Medical History: Cancer Medications and Allergies Home Medications Medication Instructions Recorded Confirmed Type Aspirin 81 mg PO DAILY 05/01/16 05/12/18 History Citalopram Hydrobromide [CeleXA] 20 mg PO DAILY 05/01/16 05/12/18 History Hydrochlorothiazide 12.5 mg PO DAILY 05/01/16 05/12/18 History Metoprolol Tartrate [Lopressor] 25 mg PO DAILY 05/01/16 05/12/18 History Simvastatin [Zocor] 40 mg PO QAM 05/01/16 05/12/18 History amLODIPine [Norvasc] 10 mg PO DAILY 05/01/16 05/12/18 History cloNIDine HCL [Catapres] 0.1 mg PO TID 05/01/16 05/12/18 History Furosemide [Lasix] 40 mg PO DAILY 09/16/17 05/12/18 History Umeclidinium [place] [Incruse 1 puff INHALATION DAILY 11/07/17 05/12/18 History Ellipta] Potassium Chloride [Klor-Con 10] 10 meq PO DAILY 01/29/18 05/12/18 History Budesonide/Formoterol Nebulize 1 dose INHALATION DAILY 05/12/18 05/12/18 History Allergies Allergy/AdvReac Type Severity Reaction Status Date / Time levofloxacin [From Levaquin] Allergy Rash/Hives Verified 05/12/18 13:29 Penicillins Allergy Rash/Hives Verified 05/12/18 13:29 Sulfa (Sulfonamide Allergy Rash/Hives Verified 05/12/18 13:29 Antibiotics) sulfamethoxazole Allergy Rash/Hives Verified 05/12/18 13:29 [From Bactrim] trimethoprim [From Bactrim] Allergy Rash/Hives Verified 05/12/18 13:29 Surgical - Exam - General well developed, well nourished, no distress - Eyes PERRL - ENT normal pinna - Neck no masses - Respiratory normal expansion - Cardiovascular Rhythm: regular - Abdomen Abdomen: soft, non tender Assessment and Plan Assessment: Morbid obesity. We'll perform sleeve gastrectomy.
[2018-05-19] MEDS: LACTATED RINGERS 1,000 ML IV SCH (09:25)
[2018-05-19] MEDS ORDERED: LIDOCAINE 1% 20 ML VIAL (10MG/ML) FOR IV START INTRADERMA ONE (09:25)
[2018-05-19] MEDS ORDERED: GLYCOPYRROLATE 0.2 MG/ML 2 ML VIAL ONE (10:19)
[2018-05-19] MEDS ORDERED: PROPOFOL 10 MG/ML 20 ML VIAL IV ONE (10:19)
[2018-05-19] MEDS ORDERED: ePHEDrine SULFATE/0.9% NACL/PF 50 MG/5 ML SYRINGE IV ONE (10:19)
[2018-05-19] MEDS ORDERED: LIDOCAINE 1% INJ 10MG/ML (20 ML MDV) ONE (10:19)
[2018-05-19] MEDS ORDERED: fentaNYL (PF) 50 MCG/ML 2 ML AMP ONE (10:19)
[2018-05-19] MEDS ORDERED: NEOSTIGMINE 1 MG/ML 10 ML VIAL ONE (10:19)
[2018-05-19] MEDS ORDERED: ROCURONIUM BROMIDE 10 MG/ML 10 ML VIAL IV ONE (10:19)
[2018-05-19] MEDS ORDERED: METHYLENE BLUE 10 MG/ML (10 ML VIAL) ONE (10:19)
[2018-05-19] MEDS ORDERED: BUPIVACAIN-EPI 0.25%-1:200,000 30 ML VIAL SQ ONE (10:42)
[2018-05-19] MEDS ORDERED: LACTATED RINGERS 1,000 ML IV ONE (11:24)
[2018-05-19] MEDS ORDERED: NALOXONE 0.4 MG/ML 1 ML VIAL IV PRN (12:07)
[2018-05-19] MEDS ORDERED: SIMETHICONE 40 MG/0.6 ML DROPS 2,000 MG/30 ML BOTTLE PO PRN (12:07)
[2018-05-19] MEDS ORDERED: HYOSCYAMINE ORAL DROPS 1.875 MG/15 ML BOTTLE PO PRN (12:07)
[2018-05-19] MEDS: HYDROmorphone 0.5 MG/0.5 ML SYRINGE IVP PRN ×4 (12:13→12:37)
--- NOTE | 2018-05-19 15:25 | P.OP ---
Date of Procedure: 05/19/18 Preoperative Diagnosis: Morbid obesity Postoperative Diagnosis: Adhesions Morbid obesity Procedure(s) Performed: Laparoscopic lysis of adhesions Morbid obesity Anesthesia: MAC Surgeon: Jose Hamilton Estimated Blood Loss (ml): 50 Pathology: other (Stomach) Condition: stable Disposition: PACU Description of Procedure: The patient was placed on the operating room table in the supine position. She received general anesthesia and then was placed in dorsal lithotomy position. Her abdomen was prepped and draped in sterile fashion. The skin incision sites were anesthetized 1% local Xylocaine. And then the skin was incised with an 11 blade in the left lateral position. Using a blade less trocar under direct visualization the peritoneal cavity was entered. The abdomen was insufflated and then a 5 mm laparoscope was placed into the peritoneal cavity. The patient had a previous right subcostal incision. There were extensive adhesions throughout the abdomen. A second 5 mm trochars placed in the left lateral upper position. And then approximately 20 minutes of operative time used to lyse adhesions. A 5 mm trocar was placed in the right epigastric, and right lateral position. A 15 mm trocar was placed in the supra-umbilical position and another 5 mm trocar was placed in the left lateral position. The left lateral lobe of the liver was retracted. The stomach was visualized. The greater curvature of the stomach was then dissected using the Harmonic scissors. The dissection occurred approximately 5 cm from the pylorus to the level of the left norah. There was no hiatal hernia seen. At this point a 40-Sami bougie dilator was placed the oropharynx and passed into the esophagus and into the stomach by the SALES CLERK. The sleeve gastrectomy was performed by using the powered echelon stapler with a seam guard buttress material. Sequential firings of the stapler were performed. The norah was then dissected. Using the Harmonic scissors the crural ducts dissection was performed. A 360 dissection of the norah is performed. The patient had a moderate size hiatal hernia. This was closed with 2-0 Ethibond suture. The gastric remnant was then brought out through the 15 mm trocar site. The dilator was withdrawn. And a orogastric tube was replaced into the stomach. The stomach was insufflated with 200 mL of methylene blue normal saline. There was no evidence of extravasation. The abdomen was irrigated there is no bleeding seen. The Pete-Marcelino device was used to close the 15 mm trocar with 0 Vicryl. Skin was closed with interrupted 3-0 Monocryl sutures once the trochars withdrawn. Dermabond dressing was applied. Patient was sent to recovery in stable condition.
[2018-05-19] MEDS: ALBUTEROL NEBULIZED 2.5 MG/3 ML INHALATION SCH ×2 (16:17→21:45)
[2018-05-19] MEDS: ONDANSETRON 4 MG/2 ML VIAL IVP PRN (16:42)
[2018-05-19] MEDS: 0.9% NACL WITH KCL 20 MEQ/L 1,000 ML IV SCH ×2 (16:45→20:13)
[2018-05-19 17:30] VITALS: BMI 37.9
[2018-05-19] MEDS: CLINDAMYCIN 900 MG in DEXTROSE 5% IN WATER 50 ML IVPB SCH ×2 (17:37)
[2018-05-19] MEDS: HYDROmorphone 1 MG/ML 1 ML SYRINGE IVP PRN ×3 (17:38→23:39)
[2018-05-19] MEDS ORDERED: cloNIDine HCL 0.1 MG TAB PO SCH (22:00)
--- NOTE | 2018-05-19 23:54 | CONS ---
CONSULTATION DATE OF CONSULTATION SERVICE: May 19, 2018. REASON FOR CONSULTATION: Medical management requested by Dr. Hamilton. CONSULTATION: This is a pleasant 68 -year-old patient of Dr. Phan. Chronic stable medical conditions include coronary artery disease, COPD, GERD, hyperlipidemia, hypertension, obstructive sleep apnea uses CPAP machine, TB 1985, skin cancer, stroke with some right- sided weakness, slight dysphagia, hiatal hernia. The patient did undergo sleeve gastrectomy and lysis of adhesions by Dr. Hamilton. Post procedure no nausea, vomiting, some abdominal pain. No chest pain or short of breath. Lying in bed. REVIEW OF SYSTEMS: CONSTITUTIONAL: None. HEENT: None. RESPIRATORY: None. CARDIOVASCULAR: None. GENITOURINARY: None. GASTROINTESTINAL: Heartburn. MUSCULOSKELETAL none. DERMATOLOGICAL: None. HEMATOLOGICAL: None. PSYCHIATRIC: None. NEUROLOGICAL: None. PAST MEDICAL HISTORY: Coronary artery disease with stent, COPD, stroke with some residual right-sided weakness, GERD, hypertension, sleep apnea with CPAP, TB 1985, skin cancer, stroke with some right-sided weakness, hiatal hernia, genital warts under control. PAST SURGICAL HISTORY: Cardiac cath with stent, cholecystectomy, hernia repair, cyst removed from the thyroid, surgery for thoracic aortic aneurysm, ventral hernia repair with mesh in July 2017. EGD and colonoscopy. PSYCH HISTORY: Depression. SOCIAL HISTORY: The patient smoked for close to 48 years, about a pack a day, stopped 5 years ago. Lives by herself. FAMILY HISTORY: Hypertension. Heart issues. HOME MEDICATIONS: 1. Catapres 0.1 mg t.i.d. 2. Norvasc 10 mg p.o. daily. 3. Incruse Ellipta 1 puff daily. 4. Zocor 40 mg p.o. daily. 5. Potassium 10 mEq p.o. daily. 6. Lopressor 25 mg p.o. daily. 7. Hydrochlorothiazide 12.5 p.o. daily. 8. Lasix 40 mg p.o. daily. 9. Celexa 20 mg p.o. daily. 10.Budesonide Formoterol nebulizer daily. 11.Aspirin 81 mg p.o. daily. ALLERGIES: LEVAQUIN, PENICILLIN, SULFUR, BACTRIM. PHYSICAL EXAMINATION: VITAL SIGNS: Temperature 97.6, pulse 62, respirations 16, blood pressure 123/71, pulse ox 94 percent nasal cannula. GENERAL APPEARANCE: Well built, BMI 37.9, lying in bed, awake. Eyes pupils are equal. Conjunctivae normal. HEENT external appearance of nose and ears normal. NECK: JVD not raised. Mass not palpable. RESPIRATORY: Effort increased. LUNGS: Distant breath sounds. CARDIOVASCULAR: 1st and 2nd sounds normal. No edema. ABDOMEN: Mild tenderness. Soft. Liver and spleen not palpable. Bowel sounds present. LYMPHATICS: No lymph nodes palpable in the neck and axillae. PSYCHIATRY: Alert and oriented x3. Mood and affect normal. NEUROLOGICAL: Pupils equal. Cranial nerves grossly intact. Power and sensation grossly intact. INVESTIGATIONS: Lab work from May 05, 2018 shows white count 9.4, hemoglobin 14.8, potassium 3.7, BUN 20, creatinine 0.6. ASSESSMENT: 1. Status post sleeve gastrectomy, lysis of adhesions. 2. Coronary artery disease, prior history of stent. 3. Chronic obstructive pulmonary disease. 4. Gastroesophageal reflux disease. 5. Hyperlipidemia. 6. Essential hypertension. 7. Obstructive sleep apnea uses CPAP machine. 8. History of TB 1985. 9. Skin cancer. 10.Genital warts. 11.Obesity; BMI 37.9. PLAN: Home medications are resumed. The patient has got Venodyne boots for DVT prophylaxis. The patient will have a barium study tomorrow. Oral medications to be resumed when okay with Dr. Hamilton. Care was discussed with the patient. Told her to keep a close eye on the blood pressure. She will follow up with her family doctor upon discharge. Thank you Dr. Hamilton. Copy to Dr. Phan. MMMAXIMINOL / LEIDAN: [id number] /
[2018-05-20] MEDS: 0.9% NACL WITH KCL 20 MEQ/L 1,000 ML IV SCH (00:37)
[2018-05-20] MEDS: CLINDAMYCIN 900 MG in DEXTROSE 5% IN WATER 50 ML IVPB SCH ×2 (02:00)
[2018-05-20 03:42] LABS: Basophils % (A) 0 %; Eosinophils % (A) 0 %; Lymphocytes # (A) 0.9 k/uL (1.0-4.8); Lymphocytes % (A) 9 %; MCH 31.3 pg (25.0-35.0); MCHC 32.6 g/dL (31.0-37.0); MCV 96.2 fL (80.0-100.0); Mean Platelet Volume 6.4; Monocytes # (A) 0.7 k/uL (0-1.0); Monocytes % (A) 6 %; Neutrophils # (A) 9.2 k/uL (1.3-7.7); Neutrophils % (A) 84 %; Platelet Count 281 k/uL (150-450); RBC 3.32 m/uL (3.80-5.40); RDW 13.6 % (11.5-15.5); WBC 10.9 k/uL (3.8-10.6)
[2018-05-20 03:50] LABS: Calcium 8.7 mg/dL (8.4-10.2); HGB 10.4 gm/dL (11.4-16.0); Magnesium 1.8 mg/dL (1.6-2.3); Phosphorus 5.8 mg/dL (2.5-4.5); Potassium 4.2 mmol/L (3.5-5.1)
[2018-05-20] MEDS: HYDROmorphone 1 MG/ML 1 ML SYRINGE IVP PRN ×5 (04:24→23:35)
[2018-05-20] MEDS: LACTATED RINGERS 1,000 ML IV SCH ×5 (04:26→10:48)
[2018-05-20] MEDS ORDERED: IPRATROPIUM 0.5 MG/2.5 ML NEBU INHALATION SCH (08:00)
[2018-05-20] MEDS ORDERED: BUDESONIDE INHALATION SCH (08:00)
[2018-05-20] MEDS ORDERED: FORMOTEROL INHALATION SCH (08:00)
[2018-05-20] MEDS: IPRATROPIUM-ALBUTEROL 3 ML NEB INHALATION SCH ×4 (08:35→20:11)
[2018-05-20] MEDS ORDERED: METOPROLOL TARTRATE 25 MG TAB PO SCH (09:00)
[2018-05-20] MEDS ORDERED: amLODIPine 10 MG TAB PO SCH (09:00)
[2018-05-20] MEDS ORDERED: SODIUM CHLORIDE 0.9% 500 ML 500 ML IV ONE (10:40)
[2018-05-20] MEDS: CITALOPRAM HYDROBROMIDE 20 MG TAB PO SCH (10:48)
[2018-05-20] MEDS: ATORVASTATIN 20 MG TAB PO SCH (10:48)
[2018-05-20] MEDS: PANTOPRAZOLE 40 MG/10 ML VIAL IV SCH (10:57)
[2018-05-20] MEDS: ENOXAPARIN 40 MG/0.4 ML SYRINGE SQ SCH ×2 (10:57→23:31)
[2018-05-20 11:38] LABS: Basophils % (A) 0 %; Eosinophils # (A) 0.2 k/uL (0-0.7); Eosinophils % (A) 1 %; HCT 28.2 % (34.0-46.0); HGB 9.2 gm/dL (11.4-16.0); Hypochromasia Slight; Lymphocytes # (A) 1.1 k/uL (1.0-4.8); Lymphocytes % (A) 8 %; MCH 32.4 pg (25.0-35.0); MCHC 32.7 g/dL (31.0-37.0); MCV 99.1 fL (80.0-100.0); Mean Platelet Volume 6.9; Monocytes # (A) 0.8 k/uL (0-1.0); Monocytes % (A) 6 %; Neutrophils % (A) 84 %; Platelet Count 241 k/uL (150-450); RBC 2.84 m/uL (3.80-5.40); RDW 13.7 % (11.5-15.5); WBC 14.3 k/uL (3.8-10.6)
[2018-05-20] MEDS: ONDANSETRON 4 MG/2 ML VIAL IVP PRN (12:02)
--- NOTE | 2018-05-20 12:57 | P.PN ---
Subjective Progress Note Date: 05/20/18 60-year-old female seen this morning on rounds sitting up in a chair. Postop day 1 laparoscopic lysis of adhesions with sleeve gastrectomy. Patient also has a known hiatal hernia. Her BMI is 40. Patient has had a lifetime problem with obesity. Has developed multiple comorbidities related to morbid obesity. patient seen this morning sitting in a chair did report a nausea sensation no active emesis surgical dressing sites dry did state when she was up ambulating to the bathroom felt dizzy lightheaded poor oral intake IV fluid boluses have been ordered Objective - Vital Signs Vital signs: Vital Signs Temp 97.6 F 05/20/18 07:00 Pulse 84 05/20/18 12:17 Resp 16 05/20/18 07:00 BP 101/67 05/20/18 07:00 Pulse Ox 96 05/20/18 08:36 Intake & Output 05/19/18 05/20/18 05/20/18 18:59 06:59 18:59 Intake Total 1400 1749 Output Total 50 400 150 Balance 1350 1349 -150 Weight 94 kg 94 kg Intake: IV 1400 Intake, IV Titration 1749 Amount 0.9% NaCl with KCl 20 Meq 750 /l 1,000 ml @ 150 mls/hr IV .Q6H40M BRE Rx#: [id number] Lactated Ringers 1,000 ml 999 @ 999 mls/hr IV .Q1H1M BRE Rx#:[id number] Output: Urine 400 150 Straight 150 Estimated Blood Loss 50 Other: # Voids 1 - Exam Physical exam 68-year-old female sitting up. No acute distress does report a nausea sensation with poor oral intake Lungs adequate air movement bilaterally Heart S1-S2 audible regular Abdomen surgical dressing site dry old bloody drainage noted on dressings soft surgical tenderness appropriate nausea sensation no active emesis nondistended Post void residual less than 60 mL Extremities no edema - Labs CBC & Chem 7: 05/20/18 11:11 05/20/18 03:23 Labs: Abnormal Lab Results - Last 24 Hours (Table) 05/20/18 05/20/18 05/20/18 Range/Units 03:23 03:23 11:11 WBC 10.9 H 14.3 H (3.8-10.6) k/uL RBC 3.32 L 2.84 L (3.80-5.40) m/uL Hgb 10.4 L D 9.2 L (11.4-16.0) gm/dL Hct 32.0 L 28.2 L (34.0-46.0) % Neutrophils # 9.2 H 12.0 H (1.3-7.7) k/uL Lymphocytes # 0.9 L (1.0-4.8) k/uL Chloride 109 H (98-107) mmol/L Phosphorus 5.8 H (2.5-4.5) mg/dL Assessment and Plan Assessment: Impression Lifetime of morbid obesity Laparoscopic lysis of adhesions sleeve gastrotomy done on May 19 A prior CVA with right side weakness Postprocedure nausea sensation no active emesis Hyperlipidemia Obstructive sleep apnea using CPAP at home Plan IV fluid for rehydration boluses as ordered Continue nothing by mouth Continue postop bariatric care Pain control Repeat labs in the morning DVT and GI prophylaxis Follow up on the upper GI currently pending The above impression and plan of care have been discussed and directed by signing physician. Mandie Amezcua nurse practitioner acting as scribe for signing physician.
--- NOTE | 2018-05-20 14:43 | FL ---
EXAMINATION TYPE: FL UGI DATE OF EXAM: 05/20/2018 CLINICAL HISTORY: Status post gastric sleeve surgery.. TECHNIQUE: 25 mL of Isovue-370 was utilized with fluoroscopy time of 53 seconds utilized during the p rocedure and 18 fluoroscopic images saved. COMPARISON: None. FINDINGS: The patient swallowed contrast without difficulty or delay. Esophageal peristalsis and mo tility are within normal limits. There is good flow of contrast along the diaphragmatic hiatus into proximal stomach and subsequent flow into gastric sleeve. There is good flow from distal sleeve into pylorus and duodenal sweep. Patient remains asymptomatic. There is no evidence of contrast extravasat ion to suggest leak. Thoracic endograft is partially visualized. IMPRESSION: No evidence of leak or significant obstruction status post recent gastric sleeve surgery.
[2018-05-20] MEDS: ceFAZolin 1,000 MG in DEXTROSE/WATER 1 50ML.BAG IVPB SCH ×2 (15:24→18:25)
[2018-05-20] MEDS: SODIUM CHLORIDE 0.9% 1,000 ML IV SCH (15:24)
--- NOTE | 2018-05-20 20:25 | PN ---
PROGRESS NOTE DATE OF SERVICE: 05/20/2018. PRESENTING COMPLAINT: Sleeve surgery. INTERVAL HISTORY: Patient is status post sleeve surgery. Did have upper GI this morning that came back to be fine. Patient is tolerating a clear liquid diet. Lying in bed. Did sit up. Not passed any flatus. No nausea, vomiting, some abdominal pain is present. REVIEW OF SYSTEMS: Done for constitutional, cardiovascular, GI, pulmonary and relevant findings as above. CURRENT MEDICATIONS: Reviewed. PHYSICAL EXAMINATION: VITAL SIGNS: Temperature 98.4, pulse 74, respirations 16, blood pressure 145/71, pulse ox 94 percent on 2 L. GENERAL APPEARANCE: Lying in bed, awake. EYES: Pupils are equal. Conjunctivae normal. HEENT: External appearance of nose and ears normal. Oral cavity normal. NECK: JVD not raised. Mass not palpable. RESPIRATORY: Effort increased. LUNGS: Decreased breath sounds. CARDIOVASCULAR: 1st and 2nd sounds normal. No edema. ABDOMEN: Soft. Mild tenderness. Liver and spleen not palpable. PSYCHIATRY: Alert and oriented x3. Mood and affect normal. ABDOMINAL: Bowel sounds are present. INVESTIGATIONS: White count 14.3, hemoglobin 9.2. ASSESSMENT: 1. Status post sleeve gastrectomy, lysis of adhesions. 2. Coronary artery disease, prior history of stent. 3. Chronic obstructive pulmonary disease. 4. Gastroesophageal reflux disease. 5. Hyperlipidemia. 6. Essential hypertension. 7. Obstructive sleep apnea uses CPAP machine. 8. History of TB 1985. 9. Skin cancer. 10.Genital warts. 11.Obesity; BMI 37.9. 12.Postop leukocytosis. Clinically, no obvious evidence of infection, probably reactive. PLAN: Continue medication and treatment plan. Patient on a bariatric diet. Repeat a CBC in the morning. There is no clinical evidence of infection at the present time. Follow. MMODL / IJN: [id number] /
[2018-05-20] MEDS ORDERED: SODIUM CHLORIDE 0.9% 1,000 ML IV ONE ×2 (21:07→22:05)
[2018-05-20 21:14] LABS: Glucose,Whole Blood 240 mg/dL (75-99)
[2018-05-20 21:23] LABS: Basophils % (A) 0 %; Eosinophils # (A) 0.2 k/uL (0-0.7); Eosinophils % (A) 1 %; HCT 22.6 % (34.0-46.0); Hypochromasia Marked; Lymphocytes # (A) 1.5 k/uL (1.0-4.8); Lymphocytes % (A) 11 %; MCH 31.8 pg (25.0-35.0); MCV 102.6 fL (80.0-100.0); Macrocytosis Slight; Monocytes # (A) 0.2 k/uL (0-1.0); Monocytes % (A) 2 %; Neutrophils # (A) 10.9 k/uL (1.3-7.7); Neutrophils % (A) 85 %; Platelet Count 253 k/uL (150-450); RBC 2.21 m/uL (3.80-5.40); WBC 12.8 k/uL (3.8-10.6)
[2018-05-20 21:49] LABS: ALT 46 U/L (9-52); AST 54 U/L (14-36); Albumin 2.6 g/dL (3.5-5.0); Alkaline Phosphatase <20 U/L (38-126); Anion Gap 12 mmol/L; Blood Urea Nitrogen 26 mg/dL (7-17); Calcium 8.4 mg/dL (8.4-10.2); Carbon Dioxide 18 mmol/L (22-30); Chloride 110 mmol/L (98-107); Glucose 191 mg/dL (74-99); Magnesium 1.9 mg/dL (1.6-2.3); Potassium 4.4 mmol/L (3.5-5.1); Sodium 140 mmol/L (137-145); Total Bilirubin 0.3 mg/dL (0.2-1.3); Total Protein 4.9 g/dL (6.3-8.2)
[2018-05-20 21:50] LABS: Glucose,Whole Blood 162 mg/dL (75-99)
[2018-05-20 22:44] LABS: INR 1.1 (<1.2); Prothrombin Time 10.4 sec (9.0-12.0)
[2018-05-21] MEDS: ceFAZolin 1,000 MG in DEXTROSE/WATER 1 50ML.BAG IVPB SCH ×3 (00:06→19:13)
--- NOTE | 2018-05-21 00:06 | CT ---
ADDENDUM - Added by Bereket Edmondson M.D. on 05/21/2018 12:26 AM (-07:00) Evaluation for active bleeding is somewhat limited without IV contrast. Evaluation for aneurysm endoleak is also limited without IV contrast. EXAM: CT Abdomen and Pelvis Without Intravenous Contrast CLINICAL HISTORY: ITS.REASON CT Reason: retroperitoneal bleed TECHNIQUE: Axial computed tomography images of the abdomen and pelvis without intravenous contrast. CTDI is 19.20 mGy and DLP is 1040 mGy-cm. This CT exam was performed using one or more of the following dose reduction techniques: automated exposure control, adjustment of the mA and/or kV according to patient size, and/or use of iterative reconstruction technique. COMPARISON: None FINDINGS: Evaluation of solid organs somewhat limited without IV contrast. Liver: No focal lesion. Spleen: Enlargement of the spleen with heterogeneity which is concerning for splenic hematoma. Surrounding perisplenic blood. Gallbladder: Prior cholecystectomy. Pancreas: Atrophy of the pancreas. Adrenal glands: No mass. Kidneys: Nonspecific left perinephric fat stranding. No hydronephrosis or stone. No mass. Bowel: Surgical changes of the stomach. Normal appendix. No bowel obstruction or inflammation. Urinary bladder: Bowman catheter in a decompressed bladder. Reproductive organs: Nonspecific focus of gas in the uterine fundus. Muscles: No mass. Subcutaneous tissues: Body wall edema, most prominent in the left anterior abdominal wall. Mild subcutaneous emphysema in the anterior abdominal wall may be related to injections or recent surgery. Small fat- containing umbilical hernia. Peritoneal space: Small amount of ascites. Fluid measures slightly greater than simple fluid attenuation, suggesting presence of some blood products. Lymph nodes: No lymphadenopathy. Vessels: Extensive atherosclerotic changes of the vasculature. Descending thoracic aortic aneurysm measuring approximately 7.4 cm in diameter. Aortic stent graft in place. Nonspecific hyperdense material seen in the right aspect of the aneurysm sac outside of the stent. Ectasia in the abdominal aorta. Bones: Probable small bone islands in the pelvic bones. No acute fracture. Degenerative changes of the spine. Degenerative grade 1 anterolisthesis of L4 on L5. Lung bases: Trace left greater than right pleural effusions. Bibasilar atelectasis. IMPRESSION: 1. Enlargement of the spleen with heterogeneity which is concerning for splenic hematoma. Surrounding perisplenic blood. No definite evidence of active bleeding. 2. Small amount of ascites. Fluid measures slightly greater than simple fluid attenuation, suggesting presence of some blood products. 3. Trace left greater than right pleural effusions. 4. Descending thoracic aortic aneurysm measuring approximately 7.4 cm in diameter. Aortic stent graft in place. Nonspecific hyperdense material seen in the right aspect of the aneurysm sac outside of the stent. 5. Body wall edema, most prominent in the left anterior abdominal wall. Mild subcutaneous emphysema in the anterior abdominal wall may be related to injections or recent surgery. [employer] 05/21/18 00:24 Call Doctor Regarding Other, called Dr. Campbell on 05/21 00: 23 (-04:00)
[2018-05-21] MEDS ORDERED: NALOXONE 0.4 MG/ML 1 ML VIAL IV PRN (00:35)
[2018-05-21] MEDS: LACTATED RINGERS 1,000 ML IV SCH (04:45)
[2018-05-21] MEDS: SODIUM CHLORIDE 0.9% 1,000 ML IV SCH (04:52)
[2018-05-21] MEDS: HYDROmorphone 1 MG/ML 1 ML SYRINGE IVP PRN ×3 (04:52→20:06)
--- NOTE | 2018-05-21 07:41 | XR ---
EXAMINATION TYPE: XR chest 1V DATE OF EXAM: 05/21/2018 HISTORY: Shortness of breath. COMPARISON: 06/21/2016 TECHNIQUE: Single view of the chest is submitted. FINDINGS: Demonstrated are scattered senescent parenchymal change. There is no evidence for focal infiltrate. The heart is stable. Hilar and mediastinal structures are within normal limits. Aortic stent graft redemonstrated. Degenerative changes are seen of the dorsal spine. IMPRESSION: 1. Chronic changes without evidence for acute pulmonary disease.
[2018-05-21 07:42] LABS: Glucose,Whole Blood 136 mg/dL (75-99)
[2018-05-21 07:47] LABS: Anisocytosis Slight; Basophils % (A) 0 %; Eosinophils # (A) 0.1 k/uL (0-0.7); Eosinophils % (A) 0 %; HCT 25.5 % (34.0-46.0); HGB 8.2 gm/dL (11.4-16.0); Hypochromasia Slight; Lymphocytes # (A) 1.5 k/uL (1.0-4.8); Lymphocytes % (A) 9 %; MCH 29.4 pg (25.0-35.0); MCHC 32.2 g/dL (31.0-37.0); Monocytes # (A) 1.1 k/uL (0-1.0); Monocytes % (A) 6 %; Neutrophils # (A) 15.1 k/uL (1.3-7.7); Neutrophils % (A) 84 %; Platelet Count 185 k/uL (150-450); RBC 2.79 m/uL (3.80-5.40); RDW 17.7 % (11.5-15.5); WBC 17.9 k/uL (3.8-10.6)
[2018-05-21 07:54] LABS: Calcium 8.1 mg/dL (8.4-10.2); Magnesium 1.9 mg/dL (1.6-2.3); Phosphorus 5.2 mg/dL (2.5-4.5); Potassium 4.4 mmol/L (3.5-5.1)
[2018-05-21 07:56] LABS: MCV 91.5 fL (80.0-100.0)
[2018-05-21] MEDS ORDERED: BISACODYL 5 MG TABLET.DR PO PRN (08:00)
[2018-05-21 08:52] LABS: Prothrombin Time 10.1 sec (9.0-12.0)
[2018-05-21 08:59] LABS: Partial Thromboplastin Time 17.5 sec (22.0-30.0)
[2018-05-21] MEDS: ATORVASTATIN 20 MG TAB PO SCH (09:17)
[2018-05-21] MEDS: PANTOPRAZOLE 40 MG/10 ML VIAL IV SCH (09:18)
[2018-05-21] MEDS: IPRATROPIUM-ALBUTEROL 3 ML NEB INHALATION SCH ×5 (09:20→23:31)
[2018-05-21] MEDS: CITALOPRAM HYDROBROMIDE 20 MG TAB PO SCH (09:26)
[2018-05-21] MEDS: ENOXAPARIN 40 MG/0.4 ML SYRINGE SQ SCH (09:26)
--- NOTE | 2018-05-21 10:49 | P.CNPUL ---
History of Present Illness Consult date: 05/21/18 Requesting physician: Jose Hamilton Reason for consult: other Chief complaint: Abdominal wall hematoma, anemia, hypotension History of present illness: This is 68-year-old white female patient status post laparoscopic sleeve gastrectomy on 05/19/2018. Patient has history of morbid obesity, coronary artery disease, COPD, CVA/TIA, GERD/reflux, hypertension, hyperlipidemia, previous episode of myocardial infarction, sleep apnea on CPAP therapy. Patient started experiencing some nausea, but no vomiting, she was starting to ambulate, but felt dizzy and lightheaded, her oral intake was poor on the first postoperative day. She was given IV fluid boluses. She had an upper GI on which showed no evidence of leak or significant obstruction status post gastric sleeve surgery. Patient developed a large abdominal wall hematoma over the left abdomen CT of abdomen and pelvis without contrast was obtained on 05/20, and showed enlargement of the spleen with Heterogeneity concerning for splenic hematoma, definite evidence of active bleeding, small amount of ascites , trace left greater than the right pleural effusions. There was a descending thoracic aortic aneurysm measuring 7.4 cm in diameter, was body wall edema most prominent in the left anterior abdominal wall. Patient's hemoglobin was down to 7.0 on 05/20/2018 from 10.4 earlier on 05/20/2018. Patient's lactic acid was 7.8, there was a mild troponin leak of 0.06, patient was having low urine output. He was transferred to the intensive care unit, she received a total of 4 L in fluid boluses, and transfused with 2 units of packed red blood cells, and this morning hemoglobin is 8.2. The left abdominal wall hematoma 's been outlined with a marker yesterday, and has not increased in size. The lab work shows WBC of 17.9, hemoglobin is 8.2, platelet count is 185, INR is 1.0, sodium is 142 potassium is 4.4, chloride is 114 and CO2 is 21, BUN is 29, creatinine is 1.83. This morning patient is in the intensive care unit, she is awake and alert, no acute distress, currently on 2 L per nasal cannula, pulse ox 93%, denies any shortness of breath, chest pain, physical exam reveals breath sounds , with wheezes, mildly tachycardic. Blood pressure is 148/83, patient is not requiring any vasopressor support, she still remains oliguric, with the urine output between 10-25 ML. Maintenance IV fluids as 0.9 normal saline at a rate of 200 ML per hour. Review of Systems All systems: negative Constitutional: Denies chills, Denies fever Eyes: denies blurred vision, denies pain Ears, nose, mouth and throat: Denies headache, Denies sore throat Cardiovascular: Denies chest pain, Denies shortness of breath Respiratory: Denies cough Gastrointestinal: Denies abdominal pain, Denies diarrhea, Denies nausea, Denies vomiting Genitourinary: Denies dysuria, Denies hematuria Musculoskeletal: Denies myalgias Integumentary: Denies pruritus, Denies rash Neurological: Denies numbness, Denies weakness Psychiatric: Denies anxiety, Denies depression Endocrine: Denies fatigue, Denies weight change Past Medical History Past Medical History: Coronary Artery Disease (CAD), Cancer, COPD, CVA/TIA, GERD /Reflux, Hyperlipidemia, Hypertension, Myocardial Infarction ([place]), Sleep Apnea/ CPAP/BIPAP Additional Past Medical History / Comment(s): TB in 1985. CPAP MACHINE. SKIN CANCER. 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 Hiatal hernia PT states has genital wart. it is not open and draining at this time Last Myocardial Infarction Date:: 01/25/2006 History of Any Multi-Drug Resistant Organisms: None Reported Past Surgical History: Cholecystectomy, Heart Catheterization With Stent, Hernia Repair Additional Past Surgical History / Comment(s): Cyst removed from thyroid, HEART CATH WITH STENT X2, SURGERY FOR Thoracic Aortic Aneurysm, Ventral hernia repair with mesh July 2017. EGD, COLONOSCOPY. Past Anesthesia/Blood Transfusion Reactions: Postoperative Nausea & Vomiting ( PONV) Date of Last Stent Placement:: 2009 Smoking Status: Former smoker - Past Family History Father Family Medical History: COPD, Myocardial Infarction ([place]) Mother Family Medical History: Hypertension Additional Family Medical History / Comment(s): Pacemaker, heart issues Sister(s) Family Medical History: Cancer Medications and Allergies Home Medications Medication Instructions Recorded Confirmed Type Aspirin 81 mg PO DAILY 05/01/16 05/19/18 History Citalopram Hydrobromide [CeleXA] 20 mg PO DAILY 05/01/16 05/19/18 History Hydrochlorothiazide 12.5 mg PO DAILY 05/01/16 05/19/18 History Metoprolol Tartrate [Lopressor] 25 mg PO DAILY 05/01/16 05/19/18 History Simvastatin [Zocor] 40 mg PO QAM 05/01/16 05/19/18 History amLODIPine [Norvasc] 10 mg PO DAILY 05/01/16 05/19/18 History cloNIDine HCL [Catapres] 0.1 mg PO TID 05/01/16 05/19/18 History Furosemide [Lasix] 40 mg PO DAILY 09/16/17 05/19/18 History Umeclidinium [place] [Incruse 1 puff INHALATION RT-DAILY 11/07/17 05/19/18 History Ellipta] Potassium Chloride [Klor-Con 10] 10 meq PO DAILY 01/29/18 05/19/18 History Budesonide/Formoterol Nebulize 1 dose INHALATION RT-DAILY 05/12/18 05/19/18 History Allergies Allergy/AdvReac Type Severity Reaction Status Date / Time levofloxacin [From Levaquin] Allergy Rash/Hives Verified 05/19/18 13:58 Penicillins Allergy Rash/Hives Verified 05/19/18 13:58 Sulfa (Sulfonamide Allergy Rash/Hives Verified 05/19/18 13:58 Antibiotics) sulfamethoxazole Allergy Rash/Hives Verified 05/19/18 13:58 [From Bactrim] trimethoprim [From Bactrim] Allergy Rash/Hives Verified 05/19/18 13:58 Physical Exam Vitals: Vital Signs Temp Pulse Pulse Resp BP BP Pulse Ox 05/21/18 09:40 100 05/21/18 09:27 106 H 93 L 05/21/18 07:00 96 17 148/83 96 05/21/18 06:50 98 20 148/83 95 05/21/18 06:40 97 20 148/83 93 L 05/21/18 06:30 95 19 148/83 96 05/21/18 06:20 95 21 148/83 95 05/21/18 06:10 96 19 148/83 96 05/21/18 06:00 96 18 152/87 96 05/21/18 05:50 96 17 152/87 97 05/21/18 05:40 95 17 152/87 96 05/21/18 05:30 97 20 152/87 96 05/21/18 05:20 96 22 152/87 96 05/21/18 05:10 96 21 152/87 96 05/21/18 05:00 100 19 128/79 94 L 05/21/18 04:50 96 19 128/79 95 05/21/18 04:40 92 22 125/80 95 05/21/18 04:30 90 22 111/70 95 05/21/18 04:20 92 21 111/70 95 05/21/18 04:10 97 17 123/71 96 05/21/18 04:00 98.4 F 97 25 H 139/103 92 L 05/21/18 03:50 93 18 139/103 95 05/21/18 03:40 92 17 131/79 95 05/21/18 03:30 93 15 114/62 94 L 05/21/18 03:20 92 19 114/62 95 05/21/18 03:10 90 17 122/100 95 05/21/18 03:00 90 20 111/61 95 05/21/18 02:50 91 19 111/61 94 L 05/21/18 02:40 92 18 135/85 95 05/21/18 02:30 91 21 114/70 94 L 05/21/18 02:20 98.4 F 91 21 114/70 94 L 05/21/18 02:10 93 16 135/67 94 L 05/21/18 02:00 95 19 121/71 94 L 05/21/18 01:50 92 21 121/71 94 L 05/21/18 01:40 98.4 F 94 21 123/98 93 L 05/21/18 01:30 95 20 143/83 93 L 05/21/18 01:20 94 18 143/83 94 L 05/21/18 01:10 96 22 139/86 94 L 05/21/18 01:00 96 33 H 131/59 94 L 05/21/18 00:50 97 14 131/59 94 L 05/21/18 00:40 96 19 137/60 94 L 05/21/18 00:30 98.9 F 96 15 125/76 94 L 05/21/18 00:20 98 17 125/76 94 L 05/21/18 00:10 98 18 137/44 93 L 05/21/18 00:07 98.9 F 99 17 137/44 05/21/18 00:00 100 17 121/60 94 L 05/20/18 23:54 99 18 121/60 93 L 05/20/18 23:50 98 18 121/60 93 L 05/20/18 23:40 98 18 121/60 93 L 05/20/18 23:30 99.0 F 98 25 H 121/60 94 L 05/20/18 23:20 99.0 F 101 H 14 103/62 94 L 05/20/18 23:10 98 20 103/62 95 05/20/18 23:00 96 25 H 103/62 95 05/20/18 22:50 103/62 05/20/18 22:40 103/62 05/20/18 22:30 103/62 05/20/18 22:20 94 17 103/62 96 05/20/18 22:10 98 23 103/62 94 L 05/20/18 22:00 101 H 21 103/62 94 L 05/20/18 21:50 103 H 21 105/43 93 L 05/20/18 21:40 111 H 21 93 L 05/20/18 21:39 110 H 22 05/20/18 20:24 101 H 16 05/20/18 20:11 101 H 16 05/20/18 16:08 105 H 16 05/20/18 15:59 92 L 05/20/18 15:56 102 H 16 05/20/18 15:35 16 05/20/18 15:00 98.4 F 74 16 145/71 94 L 05/20/18 14:00 94 L 05/20/18 12:17 84 05/20/18 12:05 84 Intake and Output 05/20/18 05/21/18 05/21/18 22:59 06:59 14:59 Intake Total 1075 1495 150 Output Total 150 10 Balance 1075 1345 140 Intake: IV 75 775 150 Sodium Chloride 0.9% 1, 75 775 150 000 ml @ 200 mls/hr IV . Q5H [facility] Rx#:[id number] Intake, IV Titration 1000 100 Amount Sodium Chloride 0.9% 1, 1000 000 ml @ 999 mls/hr IV . Q1H1M [facility] Rx#:[id number] ceFAZolin 1,000 mg In 100 Dextrose/Water 1 50ml.bag @ 100 mls/hr IVPB Q6HR [facility] Rx#:[id number] Blood Product 620 Rc As-1 Unit 310 [id number] Rc As-3 Unit 310 [id number] Output: Urine 150 10 Other: Voiding Method Indwelling Catheter Weight 104 kg GENERAL EXAM: Alert, pleasant, 68-year-old morbidly obese white female comfortable in no apparent distress. HEAD: Normocephalic/atraumatic. EYES: Normal reaction of pupils, equal size. Conjunctiva pink, sclera white. NOSE: Clear with pink turbinates. THROAT: No erythema or exudates. NECK: No masses, no JVD, no thyroid enlargement, no adenopathy. CHEST: No chest wall deformity. Symmetrical expansion. LUNGS: diminished breath sounds bilaterally, with faint end expiratory wheezes CVS: Regular rate and rhythm, normal S1 and S2, no gallops, no murmurs, no rubs ABDOMEN: Soft, tender. No hepatosplenomegaly, normal bowel sounds, no guarding or rigidity. She has a large abdominal wall hematoma over left lower abdomen, which is outlined with a marker EXTREMITIES: No clubbing, no edema, no cyanosis, 2+ pulses and upper and lower extremities. MUSCULOSKELETAL: Muscle strength and tone normal. SPINE: No scoliosis or deformity SKIN: No rashes CENTRAL NERVOUS SYSTEM: Alert and oriented -3. No focal deficits, tone is normal in all 4 extremities. PSYCHIATRIC: Alert and oriented -3. Appropriate affect. Intact judgment and insight. Results - Laboratory Findings CBC and BMP: 05/21/18 07:10 05/21/18 07:10 PT/INR, D-dimer PT 10.1 sec (9.0-12.0) 05/21/18 08:13 INR 1.0 (<1.2) 05/21/18 08:13 Abnormal lab findings: Abnormal Labs 05/20/18 05/20/18 05/20/18 03:23 03:23 03:23 WBC 10.9 H RBC 3.32 L Hgb 10.4 L D Hct 32.0 L MCV RDW Neutrophils # 9.2 H Lymphocytes # 0.9 L Monocytes # APTT Chloride 109 H Carbon Dioxide BUN Creatinine Glucose POC Glucose (mg/dL) Plasma Lactic Acid Valerio Calcium Phosphorus 5.8 H AST Alkaline Phosphatase Troponin I Total Protein Albumin Crossmatch See Detail 05/20/18 05/20/18 05/20/18 11:11 20:55 21:03 WBC 14.3 H 12.8 H RBC 2.84 L 2.21 L Hgb 9.2 L 7.0 L D Hct 28.2 L 22.6 L MCV 102.6 H RDW Neutrophils # 12.0 H 10.9 H Lymphocytes # Monocytes # APTT Chloride Carbon Dioxide BUN Creatinine Glucose POC Glucose (mg/dL) 240 H Plasma Lactic Acid Valerio Calcium Phosphorus AST Alkaline Phosphatase Troponin I Total Protein Albumin Crossmatch 05/20/18 05/20/18 05/20/18 21:03 21:03 21:03 WBC RBC Hgb Hct MCV RDW Neutrophils # Lymphocytes # Monocytes # APTT 21.0 L Chloride 110 H Carbon Dioxide 18 L BUN 26 H Creatinine 2.01 H Glucose 191 H POC Glucose (mg/dL) Plasma Lactic Acid Valerio Calcium Phosphorus AST 54 H Alkaline Phosphatase <20 L Troponin I 0.060 H* Total Protein 4.9 L Albumin 2.6 L Crossmatch 05/20/18 05/20/18 05/21/18 21:03 21:39 07:10 WBC 17.9 H RBC 2.79 L Hgb 8.2 L Hct 25.5 L MCV RDW 17.7 H Neutrophils # 15.1 H Lymphocytes # Monocytes # 1.1 H APTT Chloride Carbon Dioxide BUN Creatinine Glucose POC Glucose (mg/dL) 162 H Plasma Lactic Acid Valerio 7.3 H* Calcium Phosphorus AST Alkaline Phosphatase Troponin I Total Protein Albumin Crossmatch 05/21/18 05/21/18 05/21/18 07:10 07:31 08:13 WBC RBC Hgb Hct MCV RDW Neutrophils # Lymphocytes # Monocytes # APTT Chloride 114 H Carbon Dioxide 21 L BUN 29 H Creatinine 1.83 H Glucose 121 H POC Glucose (mg/dL) 136 H Plasma Lactic Acid Valerio Calcium 8.1 L Phosphorus 5.2 H AST Alkaline Phosphatase Troponin I 0.061 H* Total Protein Albumin Crossmatch 05/21/18 08:13 WBC RBC Hgb Hct MCV RDW Neutrophils # Lymphocytes # Monocytes # APTT 17.5 L Chloride Carbon Dioxide BUN Creatinine Glucose POC Glucose (mg/dL) Plasma Lactic Acid Valerio Calcium Phosphorus AST Alkaline Phosphatase Troponin I Total Protein Albumin Crossmatch - Diagnostic Findings Chest x-ray: report reviewed, image reviewed Additional studies: CT of abdomen and pelvis, upper GI series results reviewed Assessment and Plan Plan: Assessment: #1. Acute blood loss anemia, secondary to a large intra-abdominal hematoma #2. Anion gap lactic acidosis, related to hypovolemia #3. troponin leak #4. Acute kidney injury #5. Morbid obesity with multiple comorbidities, status post laparoscopic gastric sleeve urgency, postop day 3 #6. Leucocytosis, with no obvious signs of infection #7. Coronary artery disease with prior stenting #8. Exacerbation of chronic obstructive pulmonary disease #9. Hypertension, hyperlipidemia #10. GERD/reflux #11. Obstructive sleep apnea with CPAP therapy Plan: Continue serial H&H's, continue IV fluids, we will switch 0.9 to .45 normal saline at a rate of 100 ML per hour. Patient remains oliguric, may consider a dose of IV Lasix. Continue with GI and DVT prophylaxis. Continue nebulized bronchodilator's, Symbicort, current antibiotic coverage, continue close hemodynamic monitoring, pain control. No nausea no vomiting. Patient will remain in the intensive care for further monitoring I performed a history & physical examination of the patient and discussed their management with my nurse practitioner, Jacque Arvizu. I reviewed the nurse practitioner's note and agree with the documented findings and plan of care. Diminished breath sounds. The findings and the impression was discussed with the patient. I attest to the documentation by the nurse practitioner. Time with Patient: Greater than 30
[2018-05-21] MEDS ORDERED: IPRATROPIUM-ALBUTEROL 3 ML NEB INHALATION PRN (10:50)
[2018-05-21] MEDS ORDERED: SODIUM CHLORIDE 0.45% 1,000 ML IV SCH (11:00)
[2018-05-21] MEDS ORDERED: FUROSEMIDE 10 MG/ML 4 ML VIAL IV STA (11:06)
[2018-05-21] MEDS: SODIUM CHLORIDE 0.45% 1,000 ML IV SCH (11:16)
--- NOTE | 2018-05-21 13:01 | P.PN ---
Subjective Progress Note Date: 05/21/18 68-year-old female seen and examined. Events noted last night. Patient had an episode of dropping her hemoglobin requiring 2 units of packed red blood cells hemoglobin this morning 8.2 patient was transferred to the intensive care unit. Has received a total of 4 L of fluid, with 2 units of packed red blood cells. The left abdominal wall no increase from the reference markings noted. Palpable and firm hematoma left anterior wall noted patient states it's not tender. May 20 patient underwent an upper GI showed no evidence of a leak or obstruction. Patient is status post gastric sleeve surgery. Currently being seen this morning awake alert resting comfortably in bed Laparoscopic lysis of adhesions sleeve gastrotomy done on May 19 Objective - Vital Signs Vital signs: Vital Signs Temp 98.4 F 05/21/18 04:00 Pulse 112 H 05/21/18 12:41 Resp 17 05/21/18 07:00 BP 148/83 05/21/18 07:00 Pulse Ox 93 L 05/21/18 09:27 Intake & Output 05/20/18 05/21/18 05/21/18 18:59 06:59 18:59 Intake Total 150 2570 150 Output Total 150 150 10 Balance 0 2420 140 Weight 94 kg 104 kg Intake: IV 850 150 Sodium Chloride 0.9% 1, 850 150 000 ml @ 200 mls/hr IV . Q5H [facility] Rx#:[id number] Intake, IV Titration 150 1100 Amount Sodium Chloride 0.9% 1, 150 000 ml @ 200 mls/hr IV . Q5H [facility] Rx#:[id number] Sodium Chloride 0.9% 1, 1000 000 ml @ 999 mls/hr IV . Q1H1M [facility] Rx#:[id number] ceFAZolin 1,000 mg In 100 Dextrose/Water 1 50ml.bag @ 100 mls/hr IVPB Q6HR [facility] Rx#:[id number] Blood Product 620 Rc As-1 Unit 310 [id number] Rc As-3 Unit 310 [id number] Output: Urine 150 150 10 Straight 150 Other: Voiding Method Indwelling Catheter - Exam Physical exam 68-year-old female sitting up in bed. No acute distress no nausea no vomiting no dizziness lightheadedness no chest pain Lungs adequate air movement bilaterally Heart S1-S2 audible regular Abdomen surgical dressing site dry old bloody drainage noted on dressings soft surgical tenderness appropriate no nausea sensation no active emesis nondistended indwelling Bowman catheter in place purple ecchymotic bruising noted to the lower abdominal wall left anterior abdominal wall firm no increase in ecchymosis from reference markings Extremities no edema - Labs CBC & Chem 7: 05/21/18 07:10 05/21/18 07:10 Labs: Abnormal Lab Results - Last 24 Hours (Table) 05/20/18 05/20/18 05/20/18 Range/Units 03:23 20:55 21:03 WBC 12.8 H (3.8-10.6) k/uL RBC 2.21 L (3.80-5.40) m/uL Hgb 7.0 L D (11.4-16.0) gm/dL Hct 22.6 L (34.0-46.0) % MCV 102.6 H (80.0-100.0) fL RDW (11.5-15.5) % Neutrophils # 10.9 H (1.3-7.7) k/uL Monocytes # (0-1.0) k/uL APTT (22.0-30.0) sec Chloride (98-107) mmol/L Carbon Dioxide (22-30) mmol/L BUN (7-17) mg/dL Creatinine (0.52-1.04) mg/dL Glucose (74-99) mg/dL POC Glucose (mg/dL) 240 H (75-99) mg/dL Plasma Lactic Acid Valerio (0.7-2.0) mmol/L Calcium (8.4-10.2) mg/dL Phosphorus (2.5-4.5) mg/dL AST (14-36) U/L Alkaline Phosphatase (38-126) U/L Troponin I (0.000-0.034) ng/mL Total Protein (6.3-8.2) g/dL Albumin (3.5-5.0) g/dL Crossmatch See Detail 05/20/18 05/20/18 05/20/18 Range/Units 21:03 21:03 21:03 WBC (3.8-10.6) k/uL RBC (3.80-5.40) m/uL Hgb (11.4-16.0) gm/dL Hct (34.0-46.0) % MCV (80.0-100.0) fL RDW (11.5-15.5) % Neutrophils # (1.3-7.7) k/uL Monocytes # (0-1.0) k/uL APTT 21.0 L (22.0-30.0) sec Chloride 110 H (98-107) mmol/L Carbon Dioxide 18 L (22-30) mmol/L BUN 26 H (7-17) mg/dL Creatinine 2.01 H (0.52-1.04) mg/dL Glucose 191 H (74-99) mg/dL POC Glucose (mg/dL) (75-99) mg/dL Plasma Lactic Acid Valerio (0.7-2.0) mmol/L Calcium (8.4-10.2) mg/dL Phosphorus (2.5-4.5) mg/dL AST 54 H (14-36) U/L Alkaline Phosphatase <20 L (38-126) U/L Troponin I 0.060 H* (0.000-0.034) ng/mL Total Protein 4.9 L (6.3-8.2) g/dL Albumin 2.6 L (3.5-5.0) g/dL Crossmatch 05/20/18 05/20/18 05/21/18 Range/Units 21:03 21:39 07:10 WBC 17.9 H (3.8-10.6) k/uL RBC 2.79 L (3.80-5.40) m/uL Hgb 8.2 L (11.4-16.0) gm/dL Hct 25.5 L (34.0-46.0) % MCV (80.0-100.0) fL RDW 17.7 H (11.5-15.5) % Neutrophils # 15.1 H (1.3-7.7) k/uL Monocytes # 1.1 H (0-1.0) k/uL APTT (22.0-30.0) sec Chloride (98-107) mmol/L Carbon Dioxide (22-30) mmol/L BUN (7-17) mg/dL Creatinine (0.52-1.04) mg/dL Glucose (74-99) mg/dL POC Glucose (mg/dL) 162 H (75-99) mg/dL Plasma Lactic Acid Valerio 7.3 H* (0.7-2.0) mmol/L Calcium (8.4-10.2) mg/dL Phosphorus (2.5-4.5) mg/dL AST (14-36) U/L Alkaline Phosphatase (38-126) U/L Troponin I (0.000-0.034) ng/mL Total Protein (6.3-8.2) g/dL Albumin (3.5-5.0) g/dL Crossmatch 05/21/18 05/21/18 05/21/18 Range/Units 07:10 07:31 08:13 WBC (3.8-10.6) k/uL RBC (3.80-5.40) m/uL Hgb (11.4-16.0) gm/dL Hct (34.0-46.0) % MCV (80.0-100.0) fL RDW (11.5-15.5) % Neutrophils # (1.3-7.7) k/uL Monocytes # (0-1.0) k/uL APTT (22.0-30.0) sec Chloride 114 H (98-107) mmol/L Carbon Dioxide 21 L (22-30) mmol/L BUN 29 H (7-17) mg/dL Creatinine 1.83 H (0.52-1.04) mg/dL Glucose 121 H (74-99) mg/dL POC Glucose (mg/dL) 136 H (75-99) mg/dL Plasma Lactic Acid Valerio (0.7-2.0) mmol/L Calcium 8.1 L (8.4-10.2) mg/dL Phosphorus 5.2 H (2.5-4.5) mg/dL AST (14-36) U/L Alkaline Phosphatase (38-126) U/L Troponin I 0.061 H* (0.000-0.034) ng/mL Total Protein (6.3-8.2) g/dL Albumin (3.5-5.0) g/dL Crossmatch 05/21/18 Range/Units 08:13 WBC (3.8-10.6) k/uL RBC (3.80-5.40) m/uL Hgb (11.4-16.0) gm/dL Hct (34.0-46.0) % MCV (80.0-100.0) fL RDW (11.5-15.5) % Neutrophils # (1.3-7.7) k/uL Monocytes # (0-1.0) k/uL APTT 17.5 L (22.0-30.0) sec Chloride (98-107) mmol/L Carbon Dioxide (22-30) mmol/L BUN (7-17) mg/dL Creatinine (0.52-1.04) mg/dL Glucose (74-99) mg/dL POC Glucose (mg/dL) (75-99) mg/dL Plasma Lactic Acid Valerio (0.7-2.0) mmol/L Calcium (8.4-10.2) mg/dL Phosphorus (2.5-4.5) mg/dL AST (14-36) U/L Alkaline Phosphatase (38-126) U/L Troponin I (0.000-0.034) ng/mL Total Protein (6.3-8.2) g/dL Albumin (3.5-5.0) g/dL Crossmatch Assessment and Plan Assessment: Impression Lifetime of morbid obesity Laparoscopic lysis of adhesions sleeve gastrotomy done on May 19 A prior CVA with right side weakness Postprocedure nausea sensation no active emesis Hyperlipidemia Obstructive sleep apnea using CPAP at home Acute blood loss anemia symptomatic suspect due to large intra-abdominal hematoma CAT scan abdomen and pelvis done on May 20 show enlargement of the spleen concern for splenic hematoma with definite evidence of active bleeding small ascites Plan Continue ICU management Continue nothing by mouth Continue postop bariatric care Pain control Repeat labs in the morning DVT and GI prophylaxis Monitor hemoglobin The above impression and plan of care have been discussed and directed by signing physician. Mandie Amezcua nurse practitioner acting as scribe for signing physician.
[2018-05-21 15:33] LABS: Anisocytosis Slight; Basophils % (A) 0 %; Eosinophils # (A) 0.2 k/uL (0-0.7); Eosinophils % (A) 1 %; HCT 21.7 % (34.0-46.0); HGB 7.2 gm/dL (11.4-16.0); Lymphocytes # (A) 1.5 k/uL (1.0-4.8); Lymphocytes % (A) 9 %; MCH 30.1 pg (25.0-35.0); MCHC 33.1 g/dL (31.0-37.0); Mean Platelet Volume 6.9; Monocytes # (A) 1.1 k/uL (0-1.0); Monocytes % (A) 6 %; Neutrophils # (A) 14.9 k/uL (1.3-7.7); Neutrophils % (A) 83 %; Platelet Count 175 k/uL (150-450); RBC 2.39 m/uL (3.80-5.40); RDW 18.1 % (11.5-15.5); WBC 17.9 k/uL (3.8-10.6)
[2018-05-21] MEDS: INSULIN ASPART 100 UNIT/ML 1 ML 10 ML VIAL SQ SCH ×3 (16:12→20:09)
[2018-05-21 16:58] LABS: Glucose,Whole Blood 104 mg/dL (75-99)
[2018-05-21] MEDS: ONDANSETRON 4 MG/2 ML VIAL IVP PRN (17:30)
--- NOTE | 2018-05-21 19:44 | PN ---
PROGRESS NOTE DATE OF SERVICE: 05/21/2018 PRESENTING COMPLAINT: Low blood pressure. INTERVAL HISTORY: Patient is status post sleeve surgery. Patient was doing well yesterday when I saw her. Overnight the patient had gone to the bathroom, became really weak, could not get up. Through the night patient had ecchymosis on the abdominal wall and dropped her blood pressure, became hypotensive. Hemoglobin did drop. She had a CT scan of the abdomen that showed possible splenic hematoma, perisplenic blood and questionable retroperitoneal blood. Patient's urine output also had dropped. The patient required a total of 3 units of blood in the intensive care unit. I spoke to Dr. Varner. Dr. Hamilton is following the patient. Ecchymosis of the abdominal wall has been skin marked. Patient also was seen by Dr. Cortes from Critical Care. REVIEW OF SYSTEMS: Done for constitutional, cardiovascular, GI, pulmonary; relevant findings as above. CURRENT MEDICATIONS: Reviewed. They include IV Ancef. The patient is also getting IV fluids at 100 mL/hour. PHYSICAL EXAMINATION: Temperature 98.3, pulse 92, respiration 17, blood pressure 147/65. GENERAL APPEARANCE: Lying in bed, tired-appearing. EYES: Pupils equal. Conjunctivae pale. HEENT: External appearance of nose and ears normal. Oral cavity normal. NECK: JVD not raised. Mass not palpable. RESPIRATORY: Effort increased. LUNGS: Decreased breath sounds. CARDIOVASCULAR: First and second sounds normal. No edema. ABDOMEN: Soft. Ecchymosis present, mainly on the left side of the abdomen, not going posteriorly. Skin marked. PSYCHIATRY: Alert and oriented x3. Mood and affect normal. INVESTIGATIONS: Hemoglobin yesterday was 9.2. It did go down to 7. Last hemoglobin this late afternoon was 7.2 after having received a total of 3 units of blood. ASSESSMENT: 1. Acute blood loss anemia. Patient had become hypotensive, required about 3 units of blood. There is a significant amount of ecchymosis on the abdominal wound and there appears to be some splenic hematoma, perisplenic blood and some retroperitoneal blood causing hemodynamic changes. Patient is status post 3 units of blood and is being watched closely, moved to the ICU. 2. Status post sleeve gastrectomy and lysis of adhesions. 3. Coronary artery disease with prior history of stent. 4. Chronic obstructive pulmonary disease. 5. Gastroesophageal reflux disease. 6. Hyperlipidemia. 7. Essential hypertension. 8. Obstructive sleep apnea. Uses CPAP machine. 9. History of tuberculosis in 1985. 10.Skin cancer. 11.Genital wart. 12.Obesity; body mass index 37.9. PLAN: Follow I&O closely. Follow hemodynamics, including hemoglobin, closely. Patient is being followed by Dr. Hamilton from General Surgery and also by Critical Care. Care was discussed with the patient. Patient is on a bariatric clear liquid diet. MMODL / IJN: [id number] /
[2018-05-21] MEDS: SYMBICORT 160-4.5 MCG INHALER INHALATION SCH (20:20)
[2018-05-22 01:03] LABS: Anisocytosis Slight; Basophils % (A) 0 %; Eosinophils % (A) 0 %; HGB 8.5 gm/dL (11.4-16.0); Lymphocytes # (A) 1.8 k/uL (1.0-4.8); Lymphocytes % (A) 10 %; MCH 30.2 pg (25.0-35.0); MCHC 34.1 g/dL (31.0-37.0); MCV 88.6 fL (80.0-100.0); Mean Platelet Volume 7.6; Monocytes # (A) 1.3 k/uL (0-1.0); Monocytes % (A) 7 %; Neutrophils # (A) 14.2 k/uL (1.3-7.7); Neutrophils % (A) 81 %; Platelet Count 145 k/uL (150-450); Poikilocytosis Slight; RBC 2.83 m/uL (3.80-5.40); RDW 17.4 % (11.5-15.5); WBC 17.6 k/uL (3.8-10.6)
[2018-05-22] MEDS: IPRATROPIUM-ALBUTEROL 3 ML NEB INHALATION SCH ×6 (03:47→23:38)
[2018-05-22] MEDS: ceFAZolin 1,000 MG in DEXTROSE/WATER 1 50ML.BAG IVPB SCH ×4 (04:58→23:16)
[2018-05-22 06:50] LABS: Glucose,Whole Blood 105 mg/dL (75-99)
[2018-05-22 07:43] LABS: Anisocytosis Slight; Basophils % (A) 0 %; Eosinophils # (A) 0.1 k/uL (0-0.7); Eosinophils % (A) 0 %; HCT 23.5 % (34.0-46.0); Lymphocytes # (A) 1.5 k/uL (1.0-4.8); Lymphocytes % (A) 9 %; MCH 30.1 pg (25.0-35.0); MCV 88.5 fL (80.0-100.0); Mean Platelet Volume 7.2; Monocytes # (A) 0.9 k/uL (0-1.0); Monocytes % (A) 6 %; Neutrophils # (A) 13.1 k/uL (1.3-7.7); Neutrophils % (A) 84 %; Platelet Count 163 k/uL (150-450); Poikilocytosis Slight; RBC 2.66 m/uL (3.80-5.40); RDW 17.4 % (11.5-15.5); WBC 15.6 k/uL (3.8-10.6)
[2018-05-22] MEDS: INSULIN ASPART 100 UNIT/ML 1 ML 10 ML VIAL SQ SCH ×4 (07:59→22:42)
[2018-05-22 08:06] LABS: Calcium 8.3 mg/dL (8.4-10.2); Phosphorus 2.8 mg/dL (2.5-4.5); Potassium 3.8 mmol/L (3.5-5.1)
[2018-05-22] MEDS: SODIUM CHLORIDE 0.45% 1,000 ML IV SCH ×3 (08:10→19:04)
[2018-05-22] MEDS: HYDROmorphone 1 MG/ML 1 ML SYRINGE IVP PRN ×2 (08:11→18:38)
[2018-05-22] MEDS: ATORVASTATIN 20 MG TAB PO SCH (08:12)
[2018-05-22] MEDS: CITALOPRAM HYDROBROMIDE 20 MG TAB PO SCH (08:12)
[2018-05-22] MEDS: SYMBICORT 160-4.5 MCG INHALER INHALATION SCH ×2 (08:35→21:25)
[2018-05-22] MEDS ORDERED: ENOXAPARIN 30 MG/0.3 ML SYRINGE SQ SCH (09:00)
--- NOTE | 2018-05-22 10:12 | P.PN ---
Subjective Progress Note Date: 05/22/18 68-year-old female sitting up in bed. Respiratory treatment in progress. Currently is denying abdominal pain when questioning. The abdomen remains purple ecchymotic no increase from reference markings firm positive tenderness. Hemoglobin 8 this morning was 8.5 at 11:00 last night reports no nausea vomiting tolerating bariatric clear diet states has been up to dizziness lightheadedness Postprocedure patient developed acute blood loss anemia symptomatic suspect due to the large intra-abdominal hematoma necessitating need to be transferred to the ICU with 2 units of packed red blood cells infused Laparoscopic lysis of adhesions sleeve gastrotomy done on May 19 Objective - Vital Signs Vital signs: Vital Signs Temp 98.0 F 05/22/18 09:06 Pulse 86 05/22/18 09:06 Resp 18 05/22/18 09:06 BP 118/61 05/22/18 09:06 Pulse Ox 96 05/22/18 09:06 Intake & Output 05/21/18 05/22/18 05/22/18 18:59 06:59 18:59 Intake Total 2210 1550 Output Total 440 1450 Balance 1770 100 Weight 67.5 kg Intake: IV 750 600 Sodium Chloride 0.45% 1, 600 000 ml @ 100 mls/hr IV . Q10H [facility] Rx#:[id number] Sodium Chloride 0.9% 1, 750 000 ml @ 200 mls/hr IV . Q5H BRE Rx#:[id number] Intake, IV Titration 700 650 Amount Sodium Chloride 0.45% 1, 700 600 000 ml @ 100 mls/hr IV . Q10H [facility] Rx#:[id number] ceFAZolin 1,000 mg In 50 Dextrose/Water 1 50ml.bag @ 100 mls/hr IVPB Q12H [facility] Rx#:[id number] Oral 760 300 Blood Product 0 Rc As-1 Unit 0 [id number] Output: Urine 440 1450 Other: Voiding Method Indwelling Catheter Indwelling Catheter - Exam Physical exam 68-year-old female sitting up in bed. No acute distress no nausea no vomiting no dizziness lightheadedness no chest pain Lungs adequate air movement bilaterally Heart S1-S2 audible regular Abdomen tolerating bariatric clear diet surgical dressing site dry old bloody drainage noted on dressings slightly firm surgical tenderness appropriate no nausea sensation no active emesis indwelling Bowman catheter in place purple ecchymotic bruising noted to the lower abdominal wall left anterior abdominal wall firm no increase in ecchymosis from reference markings Extremities no edema - Labs CBC & Chem 7: 05/22/18 06:35 05/22/18 06:35 Labs: Abnormal Lab Results - Last 24 Hours (Table) 05/20/18 05/21/18 05/21/18 Range/Units 03:23 14:56 16:46 WBC 17.9 H (3.8-10.6) k/uL RBC 2.39 L (3.80-5.40) m/uL Hgb 7.2 L (11.4-16.0) gm/dL Hct 21.7 L (34.0-46.0) % RDW 18.1 H (11.5-15.5) % Plt Count (150-450) k/uL Neutrophils # 14.9 H (1.3-7.7) k/uL Monocytes # 1.1 H (0-1.0) k/uL Chloride (98-107) mmol/L Carbon Dioxide (22-30) mmol/L BUN (7-17) mg/dL POC Glucose (mg/dL) 104 H (75-99) mg/dL Calcium (8.4-10.2) mg/dL Crossmatch See Detail 05/21/18 05/22/18 05/22/18 Range/Units 23:00 06:35 06:35 WBC 17.6 H 15.6 H (3.8-10.6) k/uL RBC 2.83 L 2.66 L (3.80-5.40) m/uL Hgb 8.5 L 8.0 L (11.4-16.0) gm/dL Hct 25.0 L 23.5 L (34.0-46.0) % RDW 17.4 H 17.4 H (11.5-15.5) % Plt Count 145 L (150-450) k/uL Neutrophils # 14.2 H 13.1 H (1.3-7.7) k/uL Monocytes # 1.3 H (0-1.0) k/uL Chloride 112 H (98-107) mmol/L Carbon Dioxide 21 L (22-30) mmol/L BUN 27 H (7-17) mg/dL POC Glucose (mg/dL) (75-99) mg/dL Calcium 8.3 L (8.4-10.2) mg/dL Crossmatch 05/22/18 Range/Units 06:39 WBC (3.8-10.6) k/uL RBC (3.80-5.40) m/uL Hgb (11.4-16.0) gm/dL Hct (34.0-46.0) % RDW (11.5-15.5) % Plt Count (150-450) k/uL Neutrophils # (1.3-7.7) k/uL Monocytes # (0-1.0) k/uL Chloride (98-107) mmol/L Carbon Dioxide (22-30) mmol/L BUN (7-17) mg/dL POC Glucose (mg/dL) 105 H (75-99) mg/dL Calcium (8.4-10.2) mg/dL Crossmatch Assessment and Plan Assessment: Impression Lifetime of morbid obesity Laparoscopic lysis of adhesions sleeve gastrotomy done on May 19 A prior CVA with right side weakness Postprocedure nausea sensation no active emesis Hyperlipidemia Obstructive sleep apnea using CPAP at home Post op unexpected Acute blood loss anemia symptomatic suspect due to large intra-abdominal hematoma CAT scan abdomen and pelvis done on May 20 show enlargement of the spleen concern for splenic hematoma with definite evidence of active bleeding small ascites Plan Continue bariatric clear diet Continue postop bariatric care Pain control Repeat labs in the morning DVT and GI prophylaxis Monitor hemoglobin The above impression and plan of care have been discussed and directed by signing physician. Mandie Amezcua nurse practitioner acting as scribe for signing physician.
[2018-05-22] MEDS: PANTOPRAZOLE 40 MG/10 ML VIAL IV SCH (10:41)
[2018-05-22 11:19] LABS: Glucose,Whole Blood 112 mg/dL (75-99)
--- NOTE | 2018-05-22 12:07 | P.PN ---
Subjective Progress Note Date: 05/22/18 Principal diagnosis: Acute blood loss anemia, secondary to a large intra-abdominal hematoma This is 68-year-old white female patient status post laparoscopic sleeve gastrectomy on 05/19/2018. Patient has history of morbid obesity, coronary artery disease, COPD, CVA/TIA, GERD/reflux, hypertension, hyperlipidemia, previous episode of myocardial infarction, sleep apnea on CPAP therapy. Patient started experiencing some nausea, but no vomiting, she was starting to ambulate, but felt dizzy and lightheaded, her oral intake was poor on the first postoperative day. She was given IV fluid boluses. She had an upper GI on which showed no evidence of leak or significant obstruction status post gastric sleeve surgery. Patient developed a large abdominal wall hematoma over the left abdomen CT of abdomen and pelvis without contrast was obtained on 05/20, and showed enlargement of the spleen with Heterogeneity concerning for splenic hematoma, definite evidence of active bleeding, small amount of ascites , trace left greater than the right pleural effusions. There was a descending thoracic aortic aneurysm measuring 7.4 cm in diameter, was body wall edema most prominent in the left anterior abdominal wall. Patient's hemoglobin was down to 7.0 on 05/20/2018 from 10.4 earlier on 05/20/2018. Patient's lactic acid was 7.8, there was a mild troponin leak of 0.06, patient was having low urine output. He was transferred to the intensive care unit, she received a total of 4 L in fluid boluses, and transfused with 2 units of packed red blood cells, and this morning hemoglobin is 8.2. The left abdominal wall hematoma 's been outlined with a marker yesterday, and has not increased in size. The lab work shows WBC of 17.9, hemoglobin is 8.2, platelet count is 185, INR is 1.0, sodium is 142 potassium is 4.4, chloride is 114 and CO2 is 21, BUN is 29, creatinine is 1.83. This morning patient is in the intensive care unit, she is awake and alert, no acute distress, currently on 2 L per nasal cannula, pulse ox 93%, denies any shortness of breath, chest pain, physical exam reveals breath sounds , with wheezes, mildly tachycardic. Blood pressure is 148/83, patient is not requiring any vasopressor support, she still remains oliguric, with the urine output between 10-25 ML. Maintenance IV fluids as 0.9 normal saline at a rate of 200 ML per hour. On 05/22/2018 patient seen in follow-up on medical surgical floor. She is resting comfortably in bed, denies any acute distress, he denies any shortness of breath or chest pain. No abdominal pain, no nausea, no vomiting, no diarrhea. Left abdominal wall hematoma is not expanded, and the edges are starting to fade. Abdomen is soft, nontender. Surg. laparoscopic incisions are clean dry and intact, well approximated with Dermabond. Today's labs show the BBC of 15.6, hemoglobin of 8.0, sodium 139, potassium is 3.8, chloride is 112, CO2 21, BUN of 27, creatinine 0.87, patient renal profile has improved, patient responded well to a combination of IV fluids and blood transfusions. She status post transfusion with 2 units of packed red blood cells. Her pulse ox is 96%, patient is hemodynamically stable, afebrile. She is tolerating bariatric clear liquid diet. He is covered with Kefzol, yesterday we gave the patient a dose of IV Lasix to which she responded well, she is nonoliguric. Objective - Vital Signs Vital signs: Vital Signs Temp 98.0 F 05/22/18 09:06 Pulse 89 05/22/18 11:49 Resp 18 05/22/18 09:06 BP 118/61 05/22/18 09:06 Pulse Ox 96 05/22/18 09:06 Intake & Output 05/21/18 05/22/18 05/22/18 18:59 06:59 18:59 Intake Total 2210 1550 Output Total 440 1450 Balance 1770 100 Weight 67.5 kg Intake: IV 750 600 Sodium Chloride 0.45% 1, 600 000 ml @ 100 mls/hr IV . Q10H BRE Rx#:[id number] Sodium Chloride 0.9% 1, 750 000 ml @ 200 mls/hr IV . Q5H BRE Rx#:[id number] Intake, IV Titration 700 650 Amount Sodium Chloride 0.45% 1, 700 600 000 ml @ 100 mls/hr IV . Q10H [facility] Rx#:[id number] ceFAZolin 1,000 mg In 50 Dextrose/Water 1 50ml.bag @ 100 mls/hr IVPB Q12H [facility] Rx#:[id number] Oral 760 300 Blood Product 0 Rc As-1 Unit 0 [id number] Output: Urine 440 1450 Other: Voiding Method Indwelling Catheter Indwelling Catheter - Exam GENERAL EXAM: Alert, pleasant, 68-year-old morbidly obese white female comfortable in no apparent distress. HEAD: Normocephalic/atraumatic. EYES: Normal reaction of pupils, equal size. Conjunctiva pink, sclera white. NOSE: Clear with pink turbinates. THROAT: No erythema or exudates. NECK: No masses, no JVD, no thyroid enlargement, no adenopathy. CHEST: No chest wall deformity. Symmetrical expansion. LUNGS: Clear breath sounds bilaterally CVS: Regular rate and rhythm, normal S1 and S2, no gallops, no murmurs, no rubs ABDOMEN: Soft, tender. No hepatosplenomegaly, normal bowel sounds, no guarding or rigidity. She has a large abdominal wall hematoma over left lower abdomen, which is outlined with a marker. Laparoscopic abdominal wall incisions are approximated with Dermabond, clean dry and intact EXTREMITIES: No clubbing, no edema, no cyanosis, 2+ pulses and upper and lower extremities. MUSCULOSKELETAL: Muscle strength and tone normal. SPINE: No scoliosis or deformity SKIN: No rashes CENTRAL NERVOUS SYSTEM: Alert and oriented -3. No focal deficits, tone is normal in all 4 extremities. PSYCHIATRIC: Alert and oriented -3. Appropriate affect. Intact judgment and insight. - Labs CBC & Chem 7: 05/22/18 06:35 05/22/18 06:35 Labs: Abnormal Lab Results - Last 24 Hours (Table) 05/20/18 05/21/18 05/21/18 Range/Units 03:23 14:56 16:46 WBC 17.9 H (3.8-10.6) k/uL RBC 2.39 L (3.80-5.40) m/uL Hgb 7.2 L (11.4-16.0) gm/dL Hct 21.7 L (34.0-46.0) % RDW 18.1 H (11.5-15.5) % Plt Count (150-450) k/uL Neutrophils # 14.9 H (1.3-7.7) k/uL Monocytes # 1.1 H (0-1.0) k/uL Chloride (98-107) mmol/L Carbon Dioxide (22-30) mmol/L BUN (7-17) mg/dL POC Glucose (mg/dL) 104 H (75-99) mg/dL Calcium (8.4-10.2) mg/dL Crossmatch See Detail 05/21/18 05/22/18 05/22/18 Range/Units 23:00 06:35 06:35 WBC 17.6 H 15.6 H (3.8-10.6) k/uL RBC 2.83 L 2.66 L (3.80-5.40) m/uL Hgb 8.5 L 8.0 L (11.4-16.0) gm/dL Hct 25.0 L 23.5 L (34.0-46.0) % RDW 17.4 H 17.4 H (11.5-15.5) % Plt Count 145 L (150-450) k/uL Neutrophils # 14.2 H 13.1 H (1.3-7.7) k/uL Monocytes # 1.3 H (0-1.0) k/uL Chloride 112 H (98-107) mmol/L Carbon Dioxide 21 L (22-30) mmol/L BUN 27 H (7-17) mg/dL POC Glucose (mg/dL) (75-99) mg/dL Calcium 8.3 L (8.4-10.2) mg/dL Crossmatch 05/22/18 05/22/18 Range/Units 06:39 11:07 WBC (3.8-10.6) k/uL RBC (3.80-5.40) m/uL Hgb (11.4-16.0) gm/dL Hct (34.0-46.0) % RDW (11.5-15.5) % Plt Count (150-450) k/uL Neutrophils # (1.3-7.7) k/uL Monocytes # (0-1.0) k/uL Chloride (98-107) mmol/L Carbon Dioxide (22-30) mmol/L BUN (7-17) mg/dL POC Glucose (mg/dL) 105 H 112 H (75-99) mg/dL Calcium (8.4-10.2) mg/dL Crossmatch Assessment and Plan Plan: Assessment: #1. Acute blood loss anemia, secondary to a large intra-abdominal hematoma #2. Anion gap lactic acidosis, related to hypovolemia, resolved #3. troponin leak #4. Acute kidney injury, improved #5. Morbid obesity with multiple comorbidities, status post laparoscopic gastric sleeve urgency, postop day 4 #6. Leucocytosis, with no obvious signs of infection, improving #7. Coronary artery disease with prior stenting #8. Exacerbation of chronic obstructive pulmonary disease #9. Hypertension, hyperlipidemia #10. GERD/reflux #11. Obstructive sleep apnea with CPAP therapy Plan: Continue with current medical treatment, nebulized treatments, Symbicort. Patient denies any shortness of breath or chest pain, denies any abdominal pain , no nausea, no vomiting no diarrhea. Stable, abdominal wall hematoma has not increased. Abdomen soft, nontender. Continue encouraging incentive spirometry use. Increase activity as tolerated. We'll continue to follow I performed a history & physical examination of the patient and discussed their management with my nurse practitioner, Jacque Arvizu. I reviewed the nurse practitioner's note and agree with the documented findings and plan of care. Diminished breath sounds. The findings and the impression was discussed with the patient. I attest to the documentation by the nurse practitioner. Time with Patient: Less than 30
[2018-05-22 17:48] LABS: Glucose,Whole Blood 107 mg/dL (75-99)
--- NOTE | 2018-05-22 18:21 | PN ---
PROGRESS NOTE DATE OF SERVICE: 05/22/2018 PRESENTING COMPLAINT: Low blood pressure. INTERVAL HISTORY: Patient is status post sleeve gastrectomy. She had blood loss anemia. Patient was transfused blood and is more stable today. Skin markings on the abdomen show that the bleeding has not increased; in fact, it is going down. The patient is on a clear liquid diet. She did sit up in bed. The patient received a total of 3 units of blood. REVIEW OF SYSTEMS: Done for constitutional, cardiovascular, GI, pulmonary; relevant findings as above. CURRENT MEDICATIONS: Reviewed. They include: 1. DuoNeb. 2. IV Ancef. 3. Lovenox was started today. 4. IV fluids at 100 mL/hour. PHYSICAL EXAMINATION: Temperature 98, pulse 86, respiration 18, blood pressure 118/61, pulse ox 96% on room air. GENERAL APPEARANCE: Sitting up, tired. Awake. EYES: Pupils equal. Conjunctivae pale. HEENT: External appearance of nose and ears normal. Oral cavity normal. NECK: JVD not raised. Mass not palpable. RESPIRATORY: Effort increased. LUNGS: Decreased breath sounds. CARDIOVASCULAR: First and second sounds normal. Minimal edema. ABDOMEN: Soft. Ecchymosis present, though now decreased inside the skin marking. PSYCHIATRY: Alert and oriented x3. Mood and affect normal. INVESTIGATIONS: White count 15.6, hemoglobin 8, potassium 3.8, BUN 27, creatinine 0.87. ASSESSMENT: 1. Acute blood loss anemia, post/intraoperative, causing hypotension requiring 3 units of blood. 2. Status post sleeve gastrectomy and lysis of adhesions. 3. Coronary artery disease with prior history of stent. 4. Chronic obstructive pulmonary disease. 5. Gastroesophageal reflux disease. 6. Hyperlipidemia. 7. Essential hypertension. 8. Obstructive sleep apnea. Uses CPAP machine. 9. History of tuberculosis in 1985. 10.Skin cancer. 11.Obesity; body mass index 37.9. PLAN: Continue current medication and treatment plan. Patient is on a bariatric clear liquid diet. Patient seems to be now hemodynamically stable. Lovenox has been resumed, starting tonight, by Dr. Hamilton. Will keep a close eye on the hemoglobin. MMODL / IJN: [id number] /
[2018-05-22] MEDS: ENOXAPARIN 30 MG/0.3 ML SYRINGE SQ SCH (21:21)
[2018-05-22 21:28] LABS: Glucose,Whole Blood 110 mg/dL (75-99)
[2018-05-23] MEDS: HYDROmorphone 1 MG/ML 1 ML SYRINGE IVP PRN ×2 (01:34→08:47)
[2018-05-23] MEDS: IPRATROPIUM-ALBUTEROL 3 ML NEB INHALATION SCH ×6 (03:14→23:33)
[2018-05-23] MEDS: SODIUM CHLORIDE 0.45% 1,000 ML IV SCH ×2 (03:31→19:08)
[2018-05-23 07:24] LABS: Anisocytosis Slight; Basophils % (A) 0 %; Eosinophils # (A) 0.1 k/uL (0-0.7); Eosinophils % (A) 1 %; HCT 23.7 % (34.0-46.0); HGB 7.9 gm/dL (11.4-16.0); Lymphocytes # (A) 1.2 k/uL (1.0-4.8); Lymphocytes % (A) 10 %; MCH 29.7 pg (25.0-35.0); MCHC 33.2 g/dL (31.0-37.0); MCV 89.4 fL (80.0-100.0); Mean Platelet Volume 6.7; Monocytes # (A) 0.7 k/uL (0-1.0); Monocytes % (A) 6 %; Neutrophils # (A) 9.2 k/uL (1.3-7.7); Neutrophils % (A) 82 %; Platelet Count 192 k/uL (150-450); Poikilocytosis Slight; RBC 2.65 m/uL (3.80-5.40); RDW 17.1 % (11.5-15.5); WBC 11.2 k/uL (3.8-10.6)
[2018-05-23 07:33] LABS: Glucose,Whole Blood 104 mg/dL (75-99)
[2018-05-23 07:33] LABS: Anion Gap 4 mmol/L; Blood Urea Nitrogen 16 mg/dL (7-17); Calcium 8.4 mg/dL (8.4-10.2); Carbon Dioxide 27 mmol/L (22-30); Chloride 107 mmol/L (98-107); Glucose 97 mg/dL (74-99); Magnesium 2.1 mg/dL (1.6-2.3); Potassium 3.5 mmol/L (3.5-5.1); Sodium 138 mmol/L (137-145)
[2018-05-23] MEDS: INSULIN ASPART 100 UNIT/ML 1 ML 10 ML VIAL SQ SCH ×4 (07:48→20:15)
[2018-05-23] MEDS: SYMBICORT 160-4.5 MCG INHALER INHALATION SCH ×2 (07:54→20:00)
[2018-05-23] MEDS: PANTOPRAZOLE 40 MG/10 ML VIAL IV SCH (08:41)
[2018-05-23] MEDS: ATORVASTATIN 20 MG TAB PO SCH (08:41)
[2018-05-23] MEDS: CITALOPRAM HYDROBROMIDE 20 MG TAB PO SCH (08:41)
[2018-05-23] MEDS: ENOXAPARIN 30 MG/0.3 ML SYRINGE SQ SCH (08:41)
[2018-05-23] MEDS: ceFAZolin 1,000 MG in DEXTROSE/WATER 1 50ML.BAG IVPB SCH ×2 (08:42→16:11)
--- NOTE | 2018-05-23 09:57 | XR ---
EXAMINATION TYPE: XR chest 1V DATE OF EXAM: 05/23/2018 COMPARISON: 05/21/2018 INDICATION: Postop TECHNIQUE: Single frontal view of the chest is obtained. FINDINGS: The heart size is normal. There is a stent in the region of the aorta present previously. The pulmonary vasculature is normal. Small left pleural effusion. This is developing comparison. Small amount of fluid is likely present o n the right. This could be related to some scarring at the right diaphragm IMPRESSION: 1. Developing small left pleural effusion
[2018-05-23 12:24] LABS: Glucose,Whole Blood 88 mg/dL (75-99)
--- NOTE | 2018-05-23 12:51 | P.PN ---
Subjective Progress Note Date: 05/23/18 68-year-old female seen sitting up in a chair. Patient denies dizziness lightheadedness chest pain or shortness of breath. Patient does states she's concerned that she may have put on 30 pounds according to the nursing staff patient weighed 67.5 kg May 22 rate was rechecked it was 105.5 kg current weight this morning 105.4 kg. Question reliability of the weights. Hemoglobin 7.9 this morning white count 11.2 electrolytes noted potassium 3.5 Postop day 3 laparoscopic placement of adhesions with a sleeve gastrectomy for morbid obesity BMI 40 Postop unexpected developed acute blood loss anemia secondary to a large intra- abdominal hematoma Objective - Vital Signs Vital signs: Vital Signs Temp 98.4 F 05/23/18 07:00 Pulse 82 05/23/18 11:37 Resp 12 05/23/18 07:00 BP 149/67 05/23/18 07:00 Pulse Ox 96 05/23/18 07:00 Intake & Output 05/22/18 05/23/18 05/23/18 18:59 06:59 18:59 Intake Total 200 600 400 Output Total 200 1050 400 Balance 0 -450 0 Weight 105.5 kg 105.4 kg Intake: Oral 200 600 400 Output: Urine 200 1050 400 Other: Voiding Method Toilet # Voids 1 - Exam Physical exam 68-year-old female sitting up in a chair No acute distress no nausea no vomiting no dizziness lightheadedness no chest pain states did ambulate in the hallway twice yesterday Lungs adequate air movement bilaterally Heart S1-S2 audible regular Abdomen tolerating bariatric clear diet surgical dressing site dry old bloody drainage noted on dressings slightly firm surgical tenderness appropriate no nausea sensation no active emesis purple ecchymotic bruising noted to the lower abdominal wall left anterior abdominal wall firm no increase in ecchymosis from reference markings reports no nausea vomiting states belching and passing gas rectally Extremities no edema - Labs CBC & Chem 7: 05/23/18 06:52 05/23/18 06:52 Labs: Abnormal Lab Results - Last 24 Hours (Table) 05/20/18 05/22/18 05/22/18 Range/Units 03:23 17:37 21:16 WBC (3.8-10.6) k/uL RBC (3.80-5.40) m/uL Hgb (11.4-16.0) gm/dL Hct (34.0-46.0) % RDW (11.5-15.5) % Neutrophils # (1.3-7.7) k/uL POC Glucose (mg/dL) 107 H 110 H (75-99) mg/dL Phosphorus (2.5-4.5) mg/dL Crossmatch See Detail 05/23/18 05/23/18 05/23/18 Range/Units 06:52 06:52 07:16 WBC 11.2 H (3.8-10.6) k/uL RBC 2.65 L (3.80-5.40) m/uL Hgb 7.9 L (11.4-16.0) gm/dL Hct 23.7 L (34.0-46.0) % RDW 17.1 H (11.5-15.5) % Neutrophils # 9.2 H (1.3-7.7) k/uL POC Glucose (mg/dL) 104 H (75-99) mg/dL Phosphorus 2.0 L (2.5-4.5) mg/dL Crossmatch Assessment and Plan Assessment: Impression Lifetime of morbid obesity Laparoscopic lysis of adhesions sleeve gastrotomy done on May 19 A prior CVA with right side weakness Postprocedure nausea sensation no active emesis Hyperlipidemia Obstructive sleep apnea using CPAP at home Post op unexpected Acute blood loss anemia symptomatic suspect due to large intra-abdominal hematoma CAT scan abdomen and pelvis done on May 20 show enlargement of the spleen concern for splenic hematoma with definite evidence of active bleeding small ascites Plan Continue bariatric clear diet Continue postop bariatric care Pain control Repeat labs in the morning DVT and GI prophylaxis Monitor hemoglobin The above impression and plan of care have been discussed and directed by signing physician. Mandie Amezcua nurse practitioner acting as scribe for signing physician.
[2018-05-23 17:10] LABS: Glucose,Whole Blood 94 mg/dL (75-99)
[2018-05-23 20:18] LABS: Glucose,Whole Blood 102 mg/dL (75-99)
[2018-05-23] MEDS: ENOXAPARIN 40 MG/0.4 ML SYRINGE SQ SCH (20:23)
--- NOTE | 2018-05-23 21:28 | PN ---
PROGRESS NOTE DATE OF SERVICE: 05/23/2018. PRESENTING COMPLAINT: Tired. INTERVAL HISTORY: Patient is status post sleeve gastrectomy. This was complicated by splenic hematoma and retroperitoneal bleed. Did require 3 units of blood. The patient is on a clear liquid diet. Has not passed any flatus. Did sit up in a chair. Does feel a bit tired. REVIEW OF SYSTEMS: Done for constitutional, cardiovascular, GI, pulmonary; relevant findings as above. CURRENT MEDICATIONS: Reviewed, that include IV Ancef, getting IV fluids 100 mL an hour. PHYSICAL EXAMINATION: Temperature 98.5, pulse 76, respirations 16, blood pressure 130/77, pulse ox 97% on 2 L. GENERAL APPEARANCE: Sitting up, still remaining tired-appearing. EYES: Pupils equal. Conjunctivae pale. HEENT: External appearance of nose and ears normal. Oral cavity normal. NECK: JVD not raised. Mass not palpable. Respiratory effort increased. LUNGS: Decreased breath sounds. CARDIOVASCULAR: 1st and 2nd sounds normal. Some edema. ABDOMEN: Soft. Ecchymosis present. There are skin markings. Liver and spleen not palpable. Minimal tenderness. Bowel sounds present. PSYCHIATRY: Alert and oriented x3. Mood and affect normal. INVESTIGATIONS: White count 9.2, hemoglobin 7.9, potassium 3.5. BUN and creatinine normal. ASSESSMENT: 1. Status post sleeve gastrectomy and lysis of adhesions. 2. Acute blood loss anemia due to splenic hematoma and retroperitoneal bleed. 3. Acute hypotension from blood loss anemia requiring 3 units of blood. 4. Coronary artery disease, prior history of stent. 5. Chronic obstructive pulmonary disease. 6. Gastroesophageal reflux disease. 7. Hyperlipidemia. 8. Essential hypertension. 9. Obstructive sleep apnea, uses CPAP machine. 10.History of TB in 1985. 11.Skin cancer. 12.Obesity; BMI 37.9. PLAN: Care was discussed with the patient and daughter at the bedside. Diet will be advanced per Dr. Hamitlon. Given history of coronary artery disease, we will resume patient's aspirin. MMODL / IJN: [id number] /
[2018-05-24] MEDS: SODIUM CHLORIDE 0.45% 1,000 ML IV SCH ×3 (00:30→20:18)
[2018-05-24] MEDS: ceFAZolin 1,000 MG in DEXTROSE/WATER 1 50ML.BAG IVPB SCH ×4 (01:01→23:41)
[2018-05-24] MEDS: IPRATROPIUM-ALBUTEROL 3 ML NEB INHALATION SCH ×6 (03:07→23:37)
[2018-05-24 07:04] LABS: Glucose,Whole Blood 95 mg/dL (75-99)
[2018-05-24 08:12] LABS: Anisocytosis Slight; Basophils % (A) 0 %; Eosinophils # (A) 0.1 k/uL (0-0.7); Eosinophils % (A) 1 %; HCT 22.9 % (34.0-46.0); HGB 7.4 gm/dL (11.4-16.0); Lymphocytes # (A) 1.4 k/uL (1.0-4.8); Lymphocytes % (A) 13 %; MCH 29.3 pg (25.0-35.0); MCHC 32.4 g/dL (31.0-37.0); MCV 90.6 fL (80.0-100.0); Mean Platelet Volume 6.7; Monocytes # (A) 0.8 k/uL (0-1.0); Monocytes % (A) 8 %; Neutrophils # (A) 7.8 k/uL (1.3-7.7); Neutrophils % (A) 76 %; Platelet Count 215 k/uL (150-450); RBC 2.53 m/uL (3.80-5.40); WBC 10.2 k/uL (3.8-10.6)
[2018-05-24] MEDS: INSULIN ASPART 100 UNIT/ML 1 ML 10 ML VIAL SQ SCH ×4 (08:30→20:16)
[2018-05-24] MEDS: PANTOPRAZOLE 40 MG/10 ML VIAL IV SCH (08:41)
[2018-05-24 08:42] LABS: Anion Gap 5 mmol/L; Blood Urea Nitrogen 10 mg/dL (7-17); Calcium 8.1 mg/dL (8.4-10.2); Carbon Dioxide 28 mmol/L (22-30); Chloride 104 mmol/L (98-107); Glucose 87 mg/dL (74-99); Magnesium 2.1 mg/dL (1.6-2.3); Phosphorus 2.2 mg/dL (2.5-4.5); Potassium 3.5 mmol/L (3.5-5.1); Sodium 137 mmol/L (137-145)
[2018-05-24] MEDS: CITALOPRAM HYDROBROMIDE 20 MG TAB PO SCH (08:44)
[2018-05-24] MEDS: SYMBICORT 160-4.5 MCG INHALER INHALATION SCH ×2 (08:47→19:30)
[2018-05-24] MEDS: ASPIRIN 81 MG PO SCH (08:51)
[2018-05-24] MEDS: ATORVASTATIN 20 MG TAB PO SCH (08:51)
[2018-05-24] MEDS: ENOXAPARIN 40 MG/0.4 ML SYRINGE SQ SCH ×2 (08:52→20:18)
[2018-05-24 11:51] LABS: Glucose,Whole Blood 82 mg/dL (75-99)
--- NOTE | 2018-05-24 12:12 | P.PN ---
Subjective Progress Note Date: 05/24/18 Principal diagnosis: Morbid obesity Patient feels somewhat tired today. Overall she states she does feel better however. Minimal discomfort. Hemoglobin today 7.4. White blood cell count normal. She is afebrile. She is tolerating about 20 ounces of liquids per day currently. Objective - Vital Signs Vital signs: Vital Signs Temp 98.7 F 05/23/18 22:12 Pulse 80 05/24/18 09:02 Resp 20 05/23/18 19:32 BP 130/68 05/23/18 22:12 Pulse Ox 93 L 05/24/18 08:50 Intake & Output 05/23/18 05/24/18 05/24/18 18:59 06:59 18:59 Intake Total 900 100 Output Total 400 Balance 500 100 Intake: Intake, IV Titration 100 Amount ceFAZolin 1,000 mg In 100 Dextrose/Water 1 50ml.bag @ 100 mls/hr IVPB Q8HR [facility] Rx#:[id number] Oral 900 Output: Urine 400 Other: Voiding Method Indwelling Catheter # Voids 1 2 - Exam Abdomen: Soft, ecchymosis noted, mild incisional tenderness - Labs CBC & Chem 7: 05/24/18 07:11 05/24/18 07:11 Labs: Abnormal Lab Results - Last 24 Hours (Table) 05/23/18 05/24/18 05/24/18 Range/Units 20:06 07:11 07:11 RBC 2.53 L (3.80-5.40) m/uL Hgb 7.4 L (11.4-16.0) gm/dL Hct 22.9 L (34.0-46.0) % RDW 17.0 H (11.5-15.5) % Neutrophils # 7.8 H (1.3-7.7) k/uL Creatinine 0.43 L (0.52-1.04) mg/dL POC Glucose (mg/dL) 102 H (75-99) mg/dL Calcium 8.1 L (8.4-10.2) mg/dL Phosphorus 2.2 L (2.5-4.5) mg/dL Assessment and Plan (1) Morbid obesity Narrative/Plan: Repeat hemoglobin tomorrow. Continue bariatric liquid diet. Ambulate Current Visit: Yes Status: Acute Code(s): E66.01 - MORBID (SEVERE) OBESITY DUE TO EXCESS CALORIES SNOMED Code(s): 237402696
[2018-05-24 16:44] LABS: Glucose,Whole Blood 83 mg/dL (75-99)
--- NOTE | 2018-05-24 16:56 | PN ---
PROGRESS NOTE DATE OF SERVICE: 05/24/18. PRESENTING COMPLAINT: Tired. INTERVAL HISTORY: Patient is status post sleeve gastrectomy. This is complicated by splenic hematoma and possible retroperitoneal bleed, did require 3 units of blood. The patient remains on a bariatric liquid diet. Did pass some flatus. Has been up in a chair. Did also walk around a bit. Abdominal ecchymosis is still of course present, not looking any worse. In fact, started to flare up. REVIEW OF SYSTEMS: Done for constitutional, cardiovascular, GI, pulmonary; relevant findings as above. CURRENT MEDICATIONS: Reviewed. This will include IV Ancef and normal saline. PHYSICAL EXAMINATION: Temperature 98.5, pulse 80, respiration 22, blood pressure 124/76 pulse 96% on 2 L. GENERAL APPEARANCE: Lying in bed, awake. EYES: Pupils equal. Conjunctivae pale. HEENT: External appearance of nose and ears normal. Oral cavity normal. NECK: JVD not raised. Mass not palpable. RESPIRATORY: Effort increased. Lungs decreased breath sounds. CARDIOVASCULAR: 1st and 2nd sounds normal, minimal edema. ABDOMEN: Soft. Ecchymoses are present with slight clearing. Liver and spleen not palpable. Minimal tenderness. Bowel sounds are present. PSYCHIATRY: Alert and oriented x3. Mood and affect normal. INVESTIGATIONS: White count 10.2, hemoglobin 7.4, potassium 3.5, BUN 10, creatinine 0.43. ASSESSMENT: 1. Status post sleeve gastrectomy and lysis of adhesions. 2. Acute blood loss anemia due to splenic hematoma with some retroperitoneal bleed causing ecchymosis. 3. Acute hypotension from blood loss anemia requiring 3 units of blood, improved. 4. Coronary artery disease with prior history of stent. 5. Chronic obstructive pulmonary disease. 6. Gastroesophageal reflux disease. 7. Hyperlipidemia. 8. Essential hypertension. 9. Obstructive sleep apnea uses CPAP machine. 10.History of TB in 1985. 11.Skin cancer, history of. 12.Obesity; BMI 37.9. PLAN: Continue current medication and treatment plan. The patient is on a bariatric clear liquid diet, passing flatus. Keep a close eye on the hemoglobin. Hemodynamically stable. MMODL / IJN: [id number] /
[2018-05-24] MEDS: HYDROmorphone 1 MG/ML 1 ML SYRINGE IVP PRN (17:29)
[2018-05-24 20:25] LABS: Glucose,Whole Blood 99 mg/dL (75-99)
[2018-05-25] MEDS: IPRATROPIUM-ALBUTEROL 3 ML NEB INHALATION SCH ×6 (03:26→19:39)
[2018-05-25 07:10] LABS: Glucose,Whole Blood 94 mg/dL (75-99)
[2018-05-25] MEDS: SYMBICORT 160-4.5 MCG INHALER INHALATION SCH ×2 (07:40→19:30)
[2018-05-25 07:56] LABS: Anisocytosis Slight; Basophils % (A) 0 %; Eosinophils # (A) 0.1 k/uL (0-0.7); Eosinophils % (A) 1 %; HCT 23.8 % (34.0-46.0); HGB 7.6 gm/dL (11.4-16.0); Hypochromasia Slight; Lymphocytes % (A) 10 %; MCH 29.7 pg (25.0-35.0); MCHC 31.8 g/dL (31.0-37.0); MCV 93.4 fL (80.0-100.0); Mean Platelet Volume 6.9; Monocytes % (A) 10 %; Neutrophils # (A) 7.7 k/uL (1.3-7.7); Neutrophils % (A) 77 %; Platelet Count 248 k/uL (150-450); Poikilocytosis Slight; RBC 2.55 m/uL (3.80-5.40); RDW 17.3 % (11.5-15.5); WBC 10.1 k/uL (3.8-10.6)
[2018-05-25] MEDS: SODIUM CHLORIDE 0.45% 1,000 ML IV SCH ×2 (07:57→11:41)
[2018-05-25] MEDS: INSULIN ASPART 100 UNIT/ML 1 ML 10 ML VIAL SQ SCH ×4 (07:57→20:22)
[2018-05-25] MEDS: ASPIRIN 81 MG PO SCH (08:00)
[2018-05-25] MEDS: CITALOPRAM HYDROBROMIDE 20 MG TAB PO SCH (08:00)
[2018-05-25] MEDS: PANTOPRAZOLE 40 MG/10 ML VIAL IV SCH (08:00)
[2018-05-25] MEDS: ATORVASTATIN 20 MG TAB PO SCH (08:00)
[2018-05-25] MEDS: ENOXAPARIN 40 MG/0.4 ML SYRINGE SQ SCH ×2 (08:00→20:22)
[2018-05-25] MEDS: ceFAZolin 1,000 MG in DEXTROSE/WATER 1 50ML.BAG IVPB SCH ×3 (08:01→23:40)
[2018-05-25 08:11] LABS: Anion Gap 5 mmol/L; Blood Urea Nitrogen 9 mg/dL (7-17); Calcium 7.9 mg/dL (8.4-10.2); Carbon Dioxide 28 mmol/L (22-30); Chloride 103 mmol/L (98-107); Glucose 73 mg/dL (74-99); Magnesium 2.1 mg/dL (1.6-2.3); Phosphorus 2.7 mg/dL (2.5-4.5); Potassium 3.5 mmol/L (3.5-5.1); Sodium 136 mmol/L (137-145)
[2018-05-25 12:19] LABS: Glucose,Whole Blood 85 mg/dL (75-99)
--- NOTE | 2018-05-25 15:30 | P.PN ---
Subjective Progress Note Date: 05/25/18 Principal diagnosis: Morbid obesity Patient feels better today. She has taken in 20-30 ounces of liquids so far. Today's hemoglobin increased slightly at 7.6. White blood cell count normal. Objective - Vital Signs Vital signs: Vital Signs Temp 98.7 F 05/25/18 14:41 Pulse 82 05/25/18 14:41 Resp 12 05/25/18 14:41 BP 126/71 05/25/18 14:41 Pulse Ox 98 05/25/18 14:41 Intake & Output 05/24/18 05/25/18 05/25/18 19:59 06:59 18:59 Intake Total 1500 Output Total Balance 1500 Intake: IV Invasive Line 4 Intake, IV Titration Amount Sodium Chloride 0.45% 1, 000 ml @ 100 mls/hr IV . Q10H BRE Rx#:[id number] Oral 1500 Output: Urine Other: Voiding Method Toilet # Voids 1 - Exam Abdomen: Soft, nondistended, incision lean and dry, ecchymosis present - Labs CBC & Chem 7: 05/25/18 06:19 05/25/18 06:19 Labs: Abnormal Lab Results - Last 24 Hours (Table) 05/25/18 05/25/18 Range/Units 06:19 06:19 RBC 2.55 L (3.80-5.40) m/uL Hgb 7.6 L (11.4-16.0) gm/dL Hct 23.8 L (34.0-46.0) % RDW 17.3 H (11.5-15.5) % Sodium 136 L (137-145) mmol/L Creatinine 0.39 L (0.52-1.04) mg/dL Glucose 73 L (74-99) mg/dL Calcium 7.9 L (8.4-10.2) mg/dL Assessment and Plan (1) Morbid obesity Narrative/Plan: Continue bariatric liquids. Ambulate. Anticipate discharge tomorrow. Current Visit: Yes Status: Acute Code(s): E66.01 - MORBID (SEVERE) OBESITY DUE TO EXCESS CALORIES SNOMED Code(s): 046897685
[2018-05-25] MEDS: HYDROmorphone 1 MG/ML 1 ML SYRINGE IVP PRN ×2 (17:33→23:40)
[2018-05-25 17:39] LABS: Glucose,Whole Blood 89 mg/dL (75-99)
--- NOTE | 2018-05-25 19:05 | PN ---
PROGRESS NOTE DATE OF SERVICE: 05/25/2018. PRESENTING COMPLAINT: Tired. INTERVAL HISTORY: The patient is status post sleeve gastrectomy. Following that patient did have developed splenic hematoma and possible retroperitoneal bleed, did require 3 units of blood. Remains on a bariatric liquid diet. Did pass a small amount of stool today. Has been up in the hallway today with a walker. Abdominal ecchymosis is stabilized. No dizziness. No lightheadedness, though does feel a bit tired. REVIEW OF SYSTEMS: Done for constitutional, cardiovascular, GI, pulmonary; relevant findings as above. CURRENT MEDICATIONS: Reviewed that include IV Ancef and IV fluids. PHYSICAL EXAMINATION: VITAL SIGNS: Temperature 98.7, pulse 82, respiration 12, blood pressure 122/71, pulse ox 98 percent. GENERAL APPEARANCE: Sitting up, comfortable. EYES: Pupils equal. Conjunctivae pale. HEENT: External appearance of nose and ears normal. Oral cavity normal. NECK: JVD not raised. Mass not palpable. RESPIRATORY: Effort normal. LUNGS: Decreased breath sounds. CARDIOVASCULAR: 1st and 2nd sounds normal. Mild edema. ABDOMEN: Soft, ecchymosis present. Liver and spleen not palpable. PSYCHIATRY: Alert and oriented x3. Mood and affect normal. INVESTIGATIONS: White count 10.1, hemoglobin 7.6, potassium 3.5. ASSESSMENT: 1. Status post sleeve gastrectomy and lysis of adhesions. 2. Acute blood loss anemia due to splenic hematoma and some retroperitoneal bleed causing ecchymosis. Leading to hypotension requiring 3 units of blood. 3. Coronary artery disease, prior history of stent. 4. Chronic obstructive pulmonary disease. 5. Gastroesophageal reflux disease. 6. Hyperlipidemia. 7. Essential hypertension. 8. Obstructive sleep apnea uses CPAP machine. 9. History of TB in 1985. 10.Obesity; BMI 37.9. PLAN: Clinically patient is doing better. We will DC the IV fluids, IV antibiotics per Dr. Hamilton. Care was discussed with the patient. Questions were answered. MMODL / IJN: [id number] /
[2018-05-25 19:48] LABS: Glucose,Whole Blood 96 mg/dL (75-99)
[2018-05-26 07:06] LABS: Glucose,Whole Blood 87 mg/dL (75-99)
[2018-05-26 07:30] VITALS: BP 107/70; RESP 16; TEMP 98.6
[2018-05-26 07:35] LABS: Anisocytosis Slight; Basophils % (A) 0 %; Eosinophils # (A) 0.2 k/uL (0-0.7); Eosinophils % (A) 2 %; HGB 7.6 gm/dL (11.4-16.0); Hypochromasia Slight; Lymphocytes # (A) 1.4 k/uL (1.0-4.8); Lymphocytes % (A) 14 %; MCH 30.2 pg (25.0-35.0); MCHC 33.2 g/dL (31.0-37.0); Mean Platelet Volume 6.9; Monocytes # (A) 0.9 k/uL (0-1.0); Monocytes % (A) 9 %; Neutrophils # (A) 7.2 k/uL (1.3-7.7); Neutrophils % (A) 73 %; Platelet Count 308 k/uL (150-450); Poikilocytosis Slight; RBC 2.53 m/uL (3.80-5.40); RDW 16.7 % (11.5-15.5); WBC 9.9 k/uL (3.8-10.6)
[2018-05-26 07:49] LABS: Anion Gap 3 mmol/L; Blood Urea Nitrogen 8 mg/dL (7-17); Calcium 8.2 mg/dL (8.4-10.2); Carbon Dioxide 31 mmol/L (22-30); Chloride 103 mmol/L (98-107); Glucose 76 mg/dL (74-99); Magnesium 2.1 mg/dL (1.6-2.3); Potassium 3.6 mmol/L (3.5-5.1); Sodium 137 mmol/L (137-145)
[2018-05-26] MEDS: IPRATROPIUM-ALBUTEROL 3 ML NEB INHALATION SCH ×2 (08:00→11:55)
[2018-05-26] MEDS: SYMBICORT 160-4.5 MCG INHALER INHALATION SCH (08:00)
[2018-05-26] MEDS: INSULIN ASPART 100 UNIT/ML 1 ML 10 ML VIAL SQ SCH ×2 (09:28→15:02)
[2018-05-26] MEDS: HYDROmorphone 1 MG/ML 1 ML SYRINGE IVP PRN (09:57)
[2018-05-26] MEDS: PANTOPRAZOLE 40 MG/10 ML VIAL IV SCH (09:59)
[2018-05-26] MEDS: ATORVASTATIN 20 MG TAB PO SCH (09:59)
[2018-05-26] MEDS: ENOXAPARIN 40 MG/0.4 ML SYRINGE SQ SCH (09:59)
[2018-05-26] MEDS: ASPIRIN 81 MG PO SCH (10:00)
[2018-05-26] MEDS: CITALOPRAM HYDROBROMIDE 20 MG TAB PO SCH (10:00)
[2018-05-26 11:57] LABS: Glucose,Whole Blood 83 mg/dL (75-99)
[2018-05-26] MEDS: ceFAZolin 1,000 MG in DEXTROSE/WATER 1 50ML.BAG IVPB SCH (12:01)
--- NOTE | 2018-05-26 12:04 | P.DS ---
Providers Date of admission: 05/19/18 08:09 Expected date of discharge: 05/26/18 Attending physician: Jose Hamilton Consults: 05/19/18 12:07 Consult Physician Routine Consulting Provider: Murali Masters Consult Reason/Comments: medical management Do you want consulting provider notified?: Yes 05/21/18 00:27 Consult Physician Stat Consulting Provider: Kaylin Cortse Consult Reason/Comments: ICU management Do you want consulting provider notified?: Already Contacted Primary care physician: Gonsalo Iraheta [facility] Course: 68-year-old female who presented on an elective admission to undergo laparoscopic sleeve gastrectomy for morbid obesity done on May 19. Patient has a history of morbid obesity coronary artery disease COPD and TIA. Patient also has sleep apnea on CPAP therapy. Postop patient developed nausea dizziness lightheadedness poor oral intake on the first day postoperatively. Patient was given IV fluid bolus. Had an upper GI in the 20 of May showed no evidence of a leak or significant obstruction status post gastric sleeve surgery. Postop patient did develop a large abdominal wall hematoma noted on a CAT scan of the abdomen pelvis. Hemoglobin was down to 7 did receive 2 units of packed red blood cells hemoglobin was monitored closely. Patient was stabilized and was able to be transferred out of the ICU to a surgical unit respiratory ecchymotic purple ecchymotic bruising noted to the abdominal wall was improving no increase from reference markings hemoglobin on the day of discharge 7.6 hemoglobin April 22 7.9 patient was tolerating bariatric diet was felt to be appropriate to be discharged home Impression discharge diagnosis Lifetime of morbid obesity Laparoscopic lysis of adhesions sleeve gastrotomy done on May 19 A prior CVA with right side weakness Postprocedure nausea sensation no active emesis suspect due to analgesics and anesthesia Hyperlipidemia Obstructive sleep apnea using CPAP at home Post op unexpected Acute blood loss anemia symptomatic suspect due to large intra-abdominal hematoma CAT scan abdomen and pelvis done on May 20 show enlargement of the spleen concern for splenic hematoma with definite evidence of active bleeding small ascites Obstructive sleep apnea with CPAP therapy Leukocytosis with no obvious signs of infection improved Exacerbation of COPD improved anion gap lactic acid related to hypovolemia resolved The above impression and plan of care have been discussed and directed by signing physician. Mandie Amezcua nurse practitioner acting as scribe for signing physician. Plan - Discharge Summary Discharge Rx Participant: Yes New Discharge Prescriptions: New Docusate [Colace] 100 mg PO BID #20 capsule HYDROcodone/APAP 7.5-325MG [[place] 7.5-325] 1 tab PO Q4H PRN 3 Days #18 tab PRN Reason: Pain Omeprazole 40 mg PO DAILY #60 capsule. Bisacodyl [Dulcolax] 5 mg PO DAILY PRN #10 tablet. PRN Reason: Constipation Ondansetron Odt [Zofran Odt] 4 mg PO Q8HR PRN #9 tab PRN Reason: Nausea Simethicone 40 mg/0.6 ml Drops [Mylicon Drops] 40 mg PO PCHS PRN #30 ml PRN Reason: Gas Bisacodyl [Dulcolax] 5 mg PO DAILY PRN #10 tablet. PRN Reason: Constipation Docusate [Colace] 100 mg PO BID #20 capsule Ondansetron Odt [Zofran Odt] 4 mg PO Q8HR PRN #9 tab PRN Reason: Nausea Simethicone 40 mg/0.6 ml Drops [Mylicon Drops] 40 mg PO PCHS PRN #30 ml PRN Reason: Gas Discontinued Hydrochlorothiazide 12.5 mg PO DAILY Furosemide [Lasix] 40 mg PO DAILY No Action Simvastatin [Zocor] 40 mg PO QAM Aspirin 81 mg PO DAILY cloNIDine HCL [Catapres] 0.1 mg PO TID Metoprolol Tartrate [Lopressor] 25 mg PO DAILY amLODIPine [Norvasc] 10 mg PO DAILY Citalopram Hydrobromide [CeleXA] 20 mg PO DAILY Umeclidinium [place] [Incruse Ellipta] 1 puff INHALATION RT-DAILY Potassium Chloride [Klor-Con 10] 10 meq PO DAILY Budesonide/Formoterol Nebulize 1 dose INHALATION RT-DAILY Discharge Medication List Aspirin 81 mg PO DAILY 05/01/16 [History] Citalopram Hydrobromide [CeleXA] 20 mg PO DAILY 05/01/16 [History] Metoprolol Tartrate [Lopressor] 25 mg PO DAILY 05/01/16 [History] Simvastatin [Zocor] 40 mg PO QAM 05/01/16 [History] amLODIPine [Norvasc] 10 mg PO DAILY 05/01/16 [History] cloNIDine HCL [Catapres] 0.1 mg PO TID 05/01/16 [History] Umeclidinium [place] [Incruse Ellipta] 1 puff INHALATION RT-DAILY 11/07/17 [ History] Potassium Chloride [Klor-Con 10] 10 meq PO DAILY 01/29/18 [History] Budesonide/Formoterol Nebulize 1 dose INHALATION RT-DAILY 05/12/18 [History] Bisacodyl [Dulcolax] 5 mg PO DAILY PRN #10 tablet. 05/23/18 [Rx] Docusate [Colace] 100 mg PO BID #20 capsule 05/23/18 [Rx] HYDROcodone/APAP 7.5-325MG [[place] 7.5-325] 1 tab PO Q4H PRN 3 Days #18 tab 05/23 [Rx] Omeprazole 40 mg PO DAILY #60 capsule. 05/23/18 [Rx] Ondansetron Odt [Zofran Odt] 4 mg PO Q8HR PRN #9 tab 05/23/18 [Rx] Simethicone 40 mg/0.6 ml Drops [Mylicon Drops] 40 mg PO PCHS PRN #30 ml [Rx] Bisacodyl [Dulcolax] 5 mg PO DAILY PRN #10 tablet. 05/26/18 [Rx] Docusate [Colace] 100 mg PO BID #20 capsule 05/26/18 [Rx] Ondansetron Odt [Zofran Odt] 4 mg PO Q8HR PRN #9 tab 05/26/18 [Rx] Simethicone 40 mg/0.6 ml Drops [Mylicon Drops] 40 mg PO PCHS PRN #30 ml [Rx] Follow up Appointment(s)/Referral(s): [facility] [NON-STAFF] - 06/02/18 1:30 pm Celia Holland MD [STAFF PHYSICIAN] - 1 Week Activity/Diet/Wound Care/Special Instructions: Bariatric clear liquid diet no carbonated beverages and caffeine free and no straws Stop the Lasix and hydrochlorothiazide until seen in follow-up visit with Dr. Holland No tub bath for six weeks. Shower daily. No lifting over 10 pounds for the next 4 weeks. May use ice packs to surgical site. No driving while taking narcotic for pain. Discharge Disposition: HOME SELF-CARE
[2018-05-26 12:11] VITALS: PULSE 84
--- NOTE | 2018-05-27 06:05 | PN ---
PROGRESS NOTE DATE OF SERVICE: 05/26/2018 PRESENTING COMPLAINT: Tired. INTERVAL HISTORY: Patient is status post sleeve gastrectomy followed by splenic hematoma and retroperitoneal bleed that did require 3 units of blood. Doing much better. Sitting up today with the daughter. No more dizziness, lightheadedness. Tolerating a pediatric liquid diet. Had further bowel movement. Overall feeling much better. Keen to go home. REVIEW OF SYSTEMS: Done for constitutional, cardiovascular, GI, pulmonary; relevant findings as above. CURRENT MEDICATIONS: Current medications are reviewed. PHYSICAL EXAMINATION: On examination, temperature 98.6, pulse 70, respirations 16, blood pressure 107/70, pulse ox 97% on 2 L. GENERAL APPEARANCE: Sitting up in a chair, comfortable. EYES: Pupils equal. Conjunctivae pale. HENT: External appearance of nose and ears normal. Oral cavity normal. NECK: JVD not raised. Mass not palpable. RESPIRATORY: Effort normal. LUNGS: Slightly decreased breath sounds. CARDIOVASCULAR: First and second sounds normal. Minimal edema. ABDOMEN: Soft, nontender. Ecchymosis started to reduce. PSYCHIATRY: Alert and oriented x3. Mood and affect normal. INVESTIGATIONS: Hemoglobin 7.6, potassium 3.6. ASSESSMENT: 1. Status post sleeve gastrectomy and lysis of adhesions. 2. Acute blood loss anemia due to splenic hematoma and some retroperitoneal bleed causing leading to requiring 3 units of blood. 3. Coronary artery disease, prior history of stent. 4. Chronic obstructive pulmonary disease. 5. Gastroesophageal reflux disease. 6. Hyperlipidemia. 7. Essential hypertension. 8. Obstructive sleep apnea, uses CPAP machine. 9. History of tuberculosis in 1985. 10.Obesity; body mass index 37.9. PLAN: From a medical standpoint, the patient can be discharged on the current medications. Antibiotics will be decided by Dr. Hamilton. Care was discussed with the patient's daughter. Patient is feeling overall much better. Keen to go home. Patient should also follow up with family doctor next week. MMODL / IJN: [id number] /
--- NOTE | 2018-05-28 13:10 | CDI ---
Last Revision, June 2017 Documentation Clarification Form Date: 05/28/18 From: Alexia Devine Phone: If you have a question regarding this query, please contact Chary Figueroa at [phone] between 8am and 5pm. Admit Date: 05/19/2018 8:09:00 AM Patient Name: Mirta Jauregui Visit Number: [id number] Discharge Date: 05/26/18 ATTENTION: The Clinical Documentation Specialists (CDI) and [facility] Coding Staff appreciate your assistance in clarifying documentation. Please respond to the clarification below the line at the bottom and electronically sign. The CDI & [facility] Coding staff will review the response and follow-up if needed. Please note: Queries are made part of the Legal Health Record. If you have any questions, please contact the author of this message via ITS. Jose Rojo MD Splenic hematoma and abdominal wall hematoma are documented in Dr. Cortes's consult note, discharge summary and 05/21 - 05/25 progress notes. Patients Admitting Diagnosis: Patient was admitted for morbid obesity with a BMI of 40 and sleeve gastrectomy. Post-Operative Diagnosis: Morbid obesity and adhesions. Procedure performed: Sleeve gastrectomy, hiatal hernia repair and lysis of adhesions. Clinical Indicators: Acute blood loss anemia Treatment: Transfusion of 3 units of PRBC. In order to accurately reflect this patients severity of illness, please clarify if: the abdominal wall hematoma and splenic hematoma is a complication of the surgical procedure? Yes No Other, please specify Unable to determine the patient's abdominal wall hematoma was a complication of the surgical procedure. I do not think she had a splenic hematoma. I believe this was a collection of fluid. JUDY
--- NOTE | 2018-05-28 13:21 | CDI ---
Last Revision, June 2017 Documentation Clarification Form Date: 05/28/2018 1:18:00 PM From: Alexia Devine Phone: If you have a question , please contact Chary Figueroa at [phone] betwn 8am &5pm. Admit Date: 05/19/2018 8:09:00 AM Patient Name: Mirta Jauregui Visit Number: [id number] Discharge Date: 05/26/18 ATTENTION: The Clinical Documentation Specialists (CDI) and [facility] Coding Staff appreciate your assistance in clarifying documentation. Please respond to the clarification below the line at the bottom and electronically sign. The CDI & [facility] Coding staff will review the response and follow-up if needed. Please note: Queries are made part of the Legal Health Record. If you have any questions, please contact the author of this message via ITS. Jose Gonzalez MD Acute kidney injury is documented in Dr. Cortes's consult note and 05/22 progress note. Patients Admitting Diagnosis: Patient was admitted for morbid obesity with a BMI of 40 and sleeve gastrectomy. Post-Operative Diagnosis: Morbid obesity and adhesions. Procedure performed: Sleeve gastrectomy, hiatal hernia repair and lysis of adhesions Clinical Indicators: Oliguria and elevated creatinine. Lab: Creatinine 0.86 on admit. 05/20 Creat 2.01, 05/21 Creat 1.83, 05/22 Creat 0.87 Treatment: IV Lasix once, IV fluids bolus then at 100 In order to accurately reflect this patients severity of illness, please clarify if: Acute Kidney Injury is a complication of the surgical procedure Acute Kidney Injury is not a complication of surg procedure Other, please specify Unable to determine unable to determine. MTDD
== END 2018-05-26 15:54 | disposition home or self-care (01) | DRG 620 ==
LOC: 2ORMAIN 08:09 → 4SSUR 12:00 → 2SICU 05-20 21:09 → 4SSUR 05-22 03:49
PROVIDERS: ADMIT Surgery; ATTEND Surgery
PROC: 0DB64Z3 Excision of Stomach, Percutaneous Endoscopic Approach, Vertical (ICD-10-PCS; principal; 2018-05-19 10:15)
PROC: 0BQT4ZZ Repair Diaphragm, Percutaneous Endoscopic Approach (ICD-10-PCS; 2018-05-19 10:15)
PROC: 30233N1 Transfusion of Nonautologous Red Blood Cells into Peripheral Vein, Percutaneous Approach (ICD-10-PCS; 2018-05-20)
DX: E66.01 Morbid (severe) obesity due to excess calories (principal); D62 Acute posthemorrhagic anemia; E87.2 Acidosis; I69.351 Hemiplegia and hemiparesis following cerebral infarction affecting right dominant side; J44.1 Chronic obstructive pulmonary disease with (acute) exacerbation; N17.9 Acute kidney failure, unspecified; R18.8 Other ascites; J90 Pleural effusion, not elsewhere classified; L76.32 Postprocedural hematoma of skin and subcutaneous tissue following other procedure; I95.9 Hypotension, unspecified; R13.10 Dysphagia, unspecified; I69.991 Dysphagia following unspecified cerebrovascular disease; D72.829 Elevated white blood cell count, unspecified; E78.5 Hyperlipidemia, unspecified; E86.1 Hypovolemia; G47.33 Obstructive sleep apnea (adult) (pediatric); I10 Essential (primary) hypertension; I25.10 Atherosclerotic heart disease of native coronary artery without angina pectoris; I25.2 Old myocardial infarction; K21.9 Gastro-esophageal reflux disease without esophagitis; K44.9 Diaphragmatic hernia without obstruction or gangrene; F32.9 Major depressive disorder, single episode, unspecified; R11.0 Nausea; K66.0 Peritoneal adhesions (postprocedural) (postinfection); Z68.41 Body mass index [BMI] 40.0-44.9, adult; Z95.5 Presence of coronary angioplasty implant and graft; Z87.891 Personal history of nicotine dependence; Z86.11 Personal history of tuberculosis; Z85.828 Personal history of other malignant neoplasm of skin; Z88.1 Allergy status to other antibiotic agents; Z88.0 Allergy status to penicillin; Z88.2 Allergy status to sulfonamides; Z90.49 Acquired absence of other specified parts of digestive tract; Z86.79 Personal history of other diseases of the circulatory system; Z79.82 Long term (current) use of aspirin; Z79.899 Other long term (current) drug therapy; Z82.49 Family history of ischemic heart disease and other diseases of the circulatory system; Z82.5 Family history of asthma and other chronic lower respiratory diseases; Z80.9 Family history of malignant neoplasm, unspecified; Y83.8 Other surgical procedures as the cause of abnormal reaction of the patient, or of later complication, without mention of misadventure at the time of the procedure
CPT/HCPCS: 71045; 74176; 74240; 80048; 80051; 80053; 82310; 82565; 83605; 83735; 84100; 84484; 84520; 85025; 85610; 85730; 86850; 86900; 86901; 86920; 88307; 93005; 94640; 94760; 94762

== ENCOUNTER → 2018-06-02 | Outpatient (CLI) | payer MEDICARE ==
[2018-06-02 13:23] VITALS: BP 131/78; PULSE 71; TEMP 97.9; BMI 39.0
--- NOTE | 2018-06-02 16:54 | P.HPBAR ---
Bariatric H&P - History & Physicial H&P Date: 06/02/18 History & Physicial: Visit/CC: first post op visit after sleeve Patient initial contact: Initial weight: 103.419 kg Initial weight in pounds: 228.00 Height: 5 ft 2 in Initial BMI: 41.7 Last weight: Current weight: 96.887 kg Current weight in pounds: 213.60 Current BMI: 39.0 [place] body weight (based on NIH guidelines): 49.895 kg Excess body weight loss: 12.2% The patient is a 68 year-old F who presents for Bariatric Assessment. Patient presents today for sleeve gastric fall. She is doing quite well. She's had no colitis of pain. Past Medical History Past Medical History: Coronary Artery Disease (CAD), Cancer, COPD, CVA/TIA, Hyperlipidemia, Hypertension, Myocardial Infarction ([place]), Sleep Apnea/CPAP/BIPAP Additional Past Medical History / Comment(s): TB in 1985. CPAP MACHINE. SKIN CANCER. 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 Hiatal hernia PT states has genital wart. it is not open and draining at this time Last Myocardial Infarction Date:: 01/25/2006 History of Any Multi-Drug Resistant Organisms: None Reported Past Surgical History: Bariatric Surgery, Cholecystectomy, Heart Catheterization With Stent, Hernia Repair Additional Past Surgical History / Comment(s): Cyst removed from thyroid, HEART CATH WITH STENT X2, SURGERY FOR Thoracic Aortic Aneurysm, Ventral hernia repair with mesh July 2017. EGD, COLONOSCOPY. sleeve gastrectomy 05-26-18 Past Anesthesia/Blood Transfusion Reactions: Postoperative Nausea & Vomiting ( PONV) Date of Last Stent Placement:: 2009 Past Psychological History: Depression Smoking Status: Former smoker Past Alcohol Use History: Occasional Additional Past Alcohol Use History / Comment(s): STARTED SMOKING AT AGE 15, QUIT IN 2011 SMOKED 1PPD. Past Drug Use History: Marijuana Additional Drug Use History / Comment(s): PAST HISTORY - Past Family History Father Family Medical History: COPD, Myocardial Infarction ([place]) Mother Family Medical History: Hypertension Additional Family Medical History / Comment(s): Pacemaker, heart issues Sister(s) Family Medical History: Cancer Surgical - Exam Vital Signs Temp Pulse BP 97.9 F 71 131/78 06/02/18 13:21 06/02/18 13:21 06/02/18 13:21 - General well developed, no distress - Eyes PERRL - ENT normal pinna - Neck no masses - Respiratory normal expansion - Abdomen Abdomen: soft, non tender Bariatric Assessment & Plan Plan: Status post sleeve gastrectomy. Patient is doing quite well. She'll follow-up in 2 weeks. Bariatric Checklist Checklist: Plan: Checklist: EGD: 1. Hiatal hernia: 2. H. Pylori: HgbA1c: Vitamin D: Smoking: Former smoker Primary care physician referral: dr. Gale Psychiatry clearance: Cardiology clearance: Sleep study: Diet journal: VTE risk score: VTE risk level: Rehab needs at discharge:
== END | disposition home or self-care (01) ==
LOC: BARWHC3 12:52
PROVIDERS: ATTEND Surgery
DX: Z48.815 Encounter for surgical aftercare following surgery on the digestive system (principal); E66.01 Morbid (severe) obesity due to excess calories; I25.2 Old myocardial infarction; G47.30 Sleep apnea, unspecified; F32.9 Major depressive disorder, single episode, unspecified; G81.91 Hemiplegia, unspecified affecting right dominant side; Z99.89 Dependence on other enabling machines and devices; Z85.828 Personal history of other malignant neoplasm of skin; Z98.84 Bariatric surgery status; Z90.49 Acquired absence of other specified parts of digestive tract; Z95.5 Presence of coronary angioplasty implant and graft; Z98.890 Other specified postprocedural states; Z87.891 Personal history of nicotine dependence; Z68.39 Body mass index [BMI] 39.0-39.9, adult; Z86.73 Personal history of transient ischemic attack (TIA), and cerebral infarction without residual deficits
CPT/HCPCS: 97802; G0463; 99211

== ENCOUNTER → 2018-06-09 | Outpatient (CLI) | payer MEDICARE ==
[2018-06-09 13:34] VITALS: BP 139/64; PULSE 69; TEMP 98.2; BMI 37.1
--- NOTE | 2018-06-09 15:27 | P.HPBAR ---
Bariatric H&P - History & Physicial H&P Date: 06/09/18 History & Physicial: Visit/CC: sleeve f/u (Sx 05/19/18) Patient initial contact: Initial weight: 103.419 kg Initial weight in pounds: 228.00 Height: 5 ft 2 in Initial BMI: 41.7 Last weight: Current weight: 92.079 kg Current weight in pounds: 203.00 Current BMI: 37.1 [place] body weight (based on NIH guidelines): 50 kg Excess body weight loss: 21.1% The patient is a 68 year-old F who presents for Bariatric Assessment. The patient presents today for sleeve gastrectomy follow-up. The patient feels well. She has no complaints of pain. Her tiredness has improved. She's had some minimal GERD. Past Medical History Past Medical History: Coronary Artery Disease (CAD), Cancer, COPD, CVA/TIA, Hyperlipidemia, Hypertension, Myocardial Infarction ([place]), Sleep Apnea/CPAP/BIPAP Additional Past Medical History / Comment(s): TB in 1985. CPAP MACHINE. SKIN CANCER. 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 Hiatal hernia PT states has genital wart. it is not open and draining at this time Last Myocardial Infarction Date:: 01/25/2006 History of Any Multi-Drug Resistant Organisms: None Reported Past Surgical History: Bariatric Surgery, Cholecystectomy, Heart Catheterization With Stent, Hernia Repair Additional Past Surgical History / Comment(s): Cyst removed from thyroid, HEART CATH WITH STENT X2, SURGERY FOR Thoracic Aortic Aneurysm, Ventral hernia repair with mesh July 2017. EGD, COLONOSCOPY. sleeve gastrectomy 05/19/18 ( Dr. Jose Hamilton) Past Anesthesia/Blood Transfusion Reactions: Postoperative Nausea & Vomiting ( PONV) Date of Last Stent Placement:: 2009 Past Psychological History: Depression Smoking Status: Former smoker Past Alcohol Use History: Occasional Additional Past Alcohol Use History / Comment(s): STARTED SMOKING AT AGE 15, QUIT IN 2011 SMOKED 1PPD. Past Drug Use History: Marijuana Additional Drug Use History / Comment(s): PAST HISTORY - Past Family History Father Family Medical History: COPD, Myocardial Infarction ([place]) Mother Family Medical History: Hypertension Additional Family Medical History / Comment(s): Pacemaker, heart issues Sister(s) Family Medical History: Cancer Surgical - Exam Vital Signs Temp Pulse BP 98.2 F 69 139/64 06/09/18 13:21 06/09/18 13:21 06/09/18 13:21 - General well developed, no distress - Eyes PERRL - ENT normal pinna - Neck no masses - Respiratory normal expansion - Cardiovascular Rhythm: regular - Abdomen Abdomen: soft, non tender Bariatric Assessment & Plan Plan: Status post sleeve yesterday. Patient doing quite well. Her GERD is minimal will be observed. She'll follow-up in 2 weeks. Bariatric Checklist Checklist: Plan: Checklist: EGD: 1. Hiatal hernia: 2. H. Pylori: HgbA1c: Vitamin D: Smoking: Former smoker Primary care physician referral: dr. Gale Psychiatry clearance: Cardiology clearance: Sleep study: Diet journal: VTE risk score: VTE risk level: Rehab needs at discharge:
== END | disposition home or self-care (01) ==
LOC: BARWHC3 12:55
PROVIDERS: ATTEND Surgery
DX: Z09 Encounter for follow-up examination after completed treatment for conditions other than malignant neoplasm (principal); K21.9 Gastro-esophageal reflux disease without esophagitis; G47.30 Sleep apnea, unspecified; F32.9 Major depressive disorder, single episode, unspecified; E66.01 Morbid (severe) obesity due to excess calories; Z99.89 Dependence on other enabling machines and devices; Z86.73 Personal history of transient ischemic attack (TIA), and cerebral infarction without residual deficits; Z85.828 Personal history of other malignant neoplasm of skin; Z98.84 Bariatric surgery status; Z90.49 Acquired absence of other specified parts of digestive tract; Z95.5 Presence of coronary angioplasty implant and graft; Z98.890 Other specified postprocedural states; Z87.891 Personal history of nicotine dependence; Z68.37 Body mass index [BMI] 37.0-37.9, adult
CPT/HCPCS: 97803; G0463; 99211

== ENCOUNTER → 2018-06-23 | Outpatient (CLI) | payer MEDICARE ==
[2018-06-23 14:03] VITALS: BP 141/81; PULSE 95; RESP 16; TEMP 97.9; BMI 34.8
--- NOTE | 2018-06-23 14:12 | P.HPBAR ---
Bariatric H&P - History & Physicial H&P Date: 06/23/18 History & Physicial: Visit/CC: sleeve follow-up Patient initial contact: Initial weight: 103.419 kg Initial weight in pounds: 228.00 Height: 5 ft 2 in Initial BMI: 41.7 Last weight: Current weight: 86.409 kg Current weight in pounds: 190.50 Current BMI: 34.8 [place] body weight (based on NIH guidelines): 49.895 kg Excess body weight loss: 31.7% The patient is a 68 year-old F who presents for Bariatric Assessment. Patient presents today for sleeve follow-up.. She feels well. She is an excellent weight loss. She's had some mild GERD. Past Medical History Past Medical History: Coronary Artery Disease (CAD), Cancer, COPD, CVA/TIA, Hyperlipidemia, Hypertension, Myocardial Infarction ([place]), Sleep Apnea/CPAP/BIPAP Additional Past Medical History / Comment(s): TB in 1985. CPAP MACHINE. SKIN CANCER. 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 Hiatal hernia PT states has genital wart. it is not open and draining at this time Last Myocardial Infarction Date:: 01/25/2006 History of Any Multi-Drug Resistant Organisms: None Reported Past Surgical History: Bariatric Surgery, Cholecystectomy, Heart Catheterization With Stent, Hernia Repair Additional Past Surgical History / Comment(s): Cyst removed from thyroid, HEART CATH WITH STENT X2, SURGERY FOR Thoracic Aortic Aneurysm, Ventral hernia repair with mesh July 2017. EGD, COLONOSCOPY. sleeve gastrectomy 05/19/18 ( Dr. Jose Hamilton) Past Anesthesia/Blood Transfusion Reactions: Postoperative Nausea & Vomiting ( PONV) Date of Last Stent Placement:: 2009 Past Psychological History: Depression Smoking Status: Former smoker Past Alcohol Use History: Occasional Additional Past Alcohol Use History / Comment(s): STARTED SMOKING AT AGE 15, QUIT IN 2011 SMOKED 1PPD. Past Drug Use History: Marijuana Additional Drug Use History / Comment(s): PAST HISTORY - Past Family History Father Family Medical History: COPD, Myocardial Infarction ([place]) Mother Family Medical History: Hypertension Additional Family Medical History / Comment(s): Pacemaker, heart issues Sister(s) Family Medical History: Cancer Surgical - Exam Vital Signs Temp Pulse Resp BP 97.9 F 95 16 141/81 06/23/18 14:01 06/23/18 14:01 06/23/18 14:01 06/23/18 14:01 - General well developed, no distress - Eyes PERRL - ENT normal pinna - Neck no masses - Respiratory normal expansion - Cardiovascular Rhythm: regular - Abdomen Abdomen: soft, non tender Bariatric Assessment & Plan Plan: Status post sleeve gastric.. Patient still quite well. A standard is minimal only observed. She'll follow-up in 2 weeks. Bariatric Checklist Checklist: Plan: Checklist: EGD: 1. Hiatal hernia: 2. H. Pylori: HgbA1c: Vitamin D: Smoking: Former smoker Primary care physician referral: dr. Gale Psychiatry clearance: Cardiology clearance: Sleep study: Diet journal: VTE risk score: VTE risk level: Rehab needs at discharge:
== END ==
LOC: BARWHC3 12:46
PROVIDERS: ATTEND Surgery
DX: Z48.815 Encounter for surgical aftercare following surgery on the digestive system (principal); E66.01 Morbid (severe) obesity due to excess calories; Z98.84 Bariatric surgery status; Z87.891 Personal history of nicotine dependence; Z68.34 Body mass index [BMI] 34.0-34.9, adult
CPT/HCPCS: 97803; G0463; 99211

== ENCOUNTER → 2018-07-28 | Outpatient (CLI) | payer MEDICARE ==
[2018-07-28 14:07] VITALS: BP 118/74; PULSE 55; RESP 16; TEMP 97.9; BMI 34.0
--- NOTE | 2018-07-28 15:59 | P.HPBAR ---
Bariatric H&P - History & Physicial H&P Date: 07/28/18 History & Physicial: Visit/CC: sleeve follow-up Patient initial contact: Initial weight: 103.419 kg Initial weight in pounds: 228.00 Height: 5 ft 2 in Initial BMI: 41.7 Last weight: Current weight: 84.368 kg Current weight in pounds: 186.00 Current BMI: 34.0 [place] body weight (based on NIH guidelines): 49.895 kg Excess body weight loss: 35.5% The patient is a 68 year-old F who presents for Bariatric Assessment. Patient presents today for sleeve gastrectomy follow-up. She's had some mild cognitive GERD. She's had no significant abdominal pain. Past Medical History Past Medical History: Coronary Artery Disease (CAD), Cancer, COPD, CVA/TIA, Hyperlipidemia, Hypertension, Myocardial Infarction ([place]), Sleep Apnea/CPAP/BIPAP Additional Past Medical History / Comment(s): TB in 1985. CPAP MACHINE. SKIN CANCER. 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 Hiatal hernia. (Mar 2018: PT states she has genital wart; it is not open and draining at this time) Last Myocardial Infarction Date:: 01/25/2006 History of Any Multi-Drug Resistant Organisms: None Reported Past Surgical History: Bariatric Surgery, Cholecystectomy, Heart Catheterization With Stent, Hernia Repair Additional Past Surgical History / Comment(s): Cyst removed from thyroid, HEART CATH WITH STENT X2, SURGERY FOR Thoracic Aortic Aneurysm, Ventral hernia repair with mesh July 2017. EGD, COLONOSCOPY. sleeve gastrectomy 05/19/18 ( Dr. Jose Hamilton) Past Anesthesia/Blood Transfusion Reactions: Postoperative Nausea & Vomiting ( PONV) Date of Last Stent Placement:: 2009 Past Psychological History: Depression Smoking Status: Former smoker Past Alcohol Use History: Occasional Additional Past Alcohol Use History / Comment(s): STARTED SMOKING AT AGE 15, QUIT IN 2011 SMOKED 1PPD. Past Drug Use History: Marijuana Additional Drug Use History / Comment(s): PAST HISTORY - Past Family History Father Family Medical History: COPD, Myocardial Infarction ([place]) Mother Family Medical History: Hypertension Additional Family Medical History / Comment(s): Pacemaker, heart issues Sister(s) Family Medical History: Cancer Surgical - Exam Vital Signs Temp Pulse Resp BP 97.9 F 55 L 16 118/74 07/28/18 14:05 07/28/18 14:05 07/28/18 14:05 07/28/18 14:05 - General well developed, well nourished, no distress - Eyes PERRL - ENT normal pinna - Neck no masses - Respiratory normal expansion - Cardiovascular Rhythm: regular - Abdomen Abdomen: soft, non tender Bariatric Assessment & Plan Plan: Status post sleeve gastric. Patient is doing quite well. Her GERD is minimal will be observed. She'll follow-up in one month. Bariatric Checklist Checklist: Plan: Checklist: EGD: 1. Hiatal hernia: 2. H. Pylori: HgbA1c: Vitamin D: Smoking: Former smoker Primary care physician referral: dr. Gale Psychiatry clearance: Cardiology clearance: Sleep study: Diet journal: VTE risk score: VTE risk level: Rehab needs at discharge:
== END | disposition home or self-care (01) ==
LOC: BARWHC3 13:57
PROVIDERS: ATTEND Surgery
DX: Z48.815 Encounter for surgical aftercare following surgery on the digestive system (principal); F32.9 Major depressive disorder, single episode, unspecified; Z87.891 Personal history of nicotine dependence; Z90.49 Acquired absence of other specified parts of digestive tract; Z98.890 Other specified postprocedural states; Z98.84 Bariatric surgery status
CPT/HCPCS: 99211

== ENCOUNTER → 2018-10-27 | Outpatient (CLI) | payer MEDICARE ==
[2018-10-27 15:54] VITALS: BMI 30.9
[2018-10-27 16:17] VITALS: BP 138/77; PULSE 60; RESP 16; TEMP 98
--- NOTE | 2018-10-31 11:42 | P.HPBAR ---
Bariatric H&P - History & Physicial H&P Date: 10/27/18 History & Physicial: Visit/CC: sleeve follow-up Patient initial contact: Initial weight: 103.419 kg Initial weight in pounds: 228.00 Height: 5 ft 2 in Initial BMI: 41.7 Last weight: Current weight: 76.657 kg Current weight in pounds: 169.00 Current BMI: 30.9 [place] body weight (based on NIH guidelines): 49.895 kg Excess body weight loss: 50.0% The patient is a 68 year-old F who presents for Bariatric Assessment. Patient presents today for sleeve gastrectomy follow-up. She is an excellent weight loss. She has had some minimal GERD. Past Medical History Past Medical History: Coronary Artery Disease (CAD), Cancer, COPD, CVA/TIA, Hyperlipidemia, Hypertension, Myocardial Infarction ([place]), Sleep Apnea/CPAP/BIPAP Additional Past Medical History / Comment(s): TB in 1985. CPAP MACHINE. SKIN CANCER. 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 Hiatal hernia. (Mar 2018: PT states she has genital wart; it is not open and draining at this time) Last Myocardial Infarction Date:: 01/25/2006 History of Any Multi-Drug Resistant Organisms: None Reported Past Surgical History: Bariatric Surgery, Cholecystectomy, Heart Catheterization With Stent, Hernia Repair Additional Past Surgical History / Comment(s): Cyst removed from thyroid, HEART CATH WITH STENT X2, SURGERY FOR Thoracic Aortic Aneurysm, Ventral hernia repair with mesh July 2017. EGD, COLONOSCOPY. sleeve gastrectomy 05/19/18 (Dr. Jose Hamilton) Past Anesthesia/Blood Transfusion Reactions: Postoperative Nausea & Vomiting (PONV) Date of Last Stent Placement:: 2009 Past Psychological History: Depression Smoking Status: Former smoker Past Alcohol Use History: Occasional Additional Past Alcohol Use History / Comment(s): STARTED SMOKING AT AGE 15, QUIT IN 2011 SMOKED 1PPD. Past Drug Use History: Marijuana Additional Drug Use History / Comment(s): PAST HISTORY - Past Family History Father Family Medical History: COPD, Myocardial Infarction ([place]) Mother Family Medical History: Hypertension Additional Family Medical History / Comment(s): Pacemaker, heart issues Sister(s) Family Medical History: Cancer Surgical - Exam Vital Signs Temp Pulse Resp BP 98 F 60 16 138/77 10/27/18 16:15 10/27/18 16:15 10/27/18 16:15 10/27/18 16:15 - General well developed, well nourished, no distress - Eyes PERRL - ENT normal pinna - Neck no masses - Respiratory normal expansion - Cardiovascular Rhythm: regular - Abdomen Abdomen: soft, non tender Bariatric Assessment & Plan Plan: Status post sleeve yesterday. Patient did quite well. Her GERD is minimal will be observed. She'll follow-up in 4 weeks. Bariatric Checklist Checklist: Plan: Checklist: EGD: 1. Hiatal hernia: 2. H. Pylori: HgbA1c: Vitamin D: Smoking: Former smoker Primary care physician referral: dr. Gale Psychiatry clearance: Cardiology clearance: Sleep study: Diet journal: VTE risk score: VTE risk level: Rehab needs at discharge:
== END ==
LOC: BARWHC3 13:37
PROVIDERS: ATTEND Surgery
DX: Z48.815 Encounter for surgical aftercare following surgery on the digestive system (principal); K21.9 Gastro-esophageal reflux disease without esophagitis; E66.01 Morbid (severe) obesity due to excess calories; Z98.84 Bariatric surgery status; Z68.30 Body mass index [BMI] 30.0-30.9, adult; Z87.891 Personal history of nicotine dependence
CPT/HCPCS: 97803; G0463; 99211

== ENCOUNTER → 2019-03-09 | Outpatient (CLI) | payer MEDICARE ==
[2019-03-09 13:34] VITALS: BP 133/63; PULSE 58; TEMP 98; BMI 28.5
--- NOTE | 2019-03-09 13:39 | P.HPBAR ---
Bariatric H&P - History & Physicial H&P Date: 03/09/19 History & Physicial: Visit/CC: nine month follow up Patient initial contact: Initial weight: 103.419 kg Initial weight in pounds: 228.00 Height: 5 ft 2 in Initial BMI: 41.7 Last weight: Current weight: 70.76 kg Current weight in pounds: 156.00 Current BMI: 28.5 [place] body weight (based on NIH guidelines): 49.895 kg Excess body weight loss: 61.0% The patient is a 69 year-old F who presents for Bariatric Assessment. Patient resents today for sleeve gastrectomy fall. She is doing quite well. She's had some mild GERD. She's had some intermittent nausea. Past Medical History Past Medical History: Coronary Artery Disease (CAD), Cancer, COPD, CVA/TIA, Hyperlipidemia, Hypertension, Myocardial Infarction ([place]), Sleep Apnea/CPAP/BIPAP Additional Past Medical History / Comment(s): TB in 1985. CPAP MACHINE. SKIN CANCER. 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 Hiatal hernia. (Mar 2018: PT states she has genital wart; it is not open and draining at this time) Last Myocardial Infarction Date:: 01/25/2006 History of Any Multi-Drug Resistant Organisms: None Reported Past Surgical History: Bariatric Surgery, Cholecystectomy, Heart Catheterization With Stent, Hernia Repair Additional Past Surgical History / Comment(s): Cyst removed from thyroid, HEART CATH WITH STENT X2, SURGERY FOR Thoracic Aortic Aneurysm, Ventral hernia repair with mesh July 2017. EGD, COLONOSCOPY. sleeve gastrectomy 05/19/18 (Dr. Jose Hamilton) Past Anesthesia/Blood Transfusion Reactions: Postoperative Nausea & Vomiting (PONV) Date of Last Stent Placement:: 2009 Smoking Status: Former smoker - Past Family History Father Family Medical History: COPD, Myocardial Infarction ([place]) Mother Family Medical History: Hypertension Additional Family Medical History / Comment(s): Pacemaker, heart issues Sister(s) Family Medical History: Cancer Surgical - Exam Vital Signs Temp Pulse BP 98 F 58 L 133/63 03/09/19 13:28 03/09/19 13:28 03/09/19 13:28 - General well developed, well nourished, no distress - Eyes PERRL - ENT normal pinna - Neck no masses - Respiratory normal expansion - Abdomen Abdomen: soft, non tender Bariatric Assessment & Plan Plan: Status post sleeve yesterday. Patient had excellent weight loss. Patient was treated with omeprazole 40 mg by mouth daily for her GERD. She'll follow-up in 3 months. Bariatric Checklist Checklist: Plan: Checklist: EGD: 1. Hiatal hernia: 2. H. Pylori: HgbA1c: Vitamin D: Smoking: Former smoker Primary care physician referral: dr. Kimbroughelarnoldor Psychiatry clearance: Cardiology clearance: Sleep study: Diet journal: VTE risk score: VTE risk level: Rehab needs at discharge:
[2019-03-09 14:32] LABS: HCT 43.1 % (34.0-46.0); HGB 14.2 gm/dL (11.4-16.0); MCH 32.1 pg (25.0-35.0); MCV 97.4 fL (80.0-100.0); Mean Platelet Volume 6.4; Platelet Count 237 k/uL (150-450); RBC 4.43 m/uL (3.80-5.40); WBC 7.7 k/uL (3.8-10.6)
[2019-03-09 18:54] LABS: Vitamin D 25 Hydroxy 17.3 ng/mL (30.0-100.0)
[2019-03-09 18:56] LABS: Folate, Serum 7.7 ng/mL
[2019-03-09 19:13] LABS: African American GFR (CKD) 107.8 (60.0-200.0); Albumin/Globulin Ratio 2.11 (1.60-3.17); Anion Gap 6.1 mmol/L (4.00-12.00); Calcium 9.1 mg/dL (8.7-10.3); Carbon Dioxide 30.9 mmol/L (21.6-31.8); Globulin 1.9 g/dL (1.6-3.3); Potassium 3.5 mmol/L (3.5-5.5); Total Bilirubin 0.5 mg/dL (0.3-1.2); Total Protein 5.9 g/dL (6.2-8.2)
== END | disposition home or self-care (01) ==
LOC: BARWHC3 13:02
PROVIDERS: ATTEND Surgery
DX: Z48.815 Encounter for surgical aftercare following surgery on the digestive system (principal); E66.01 Morbid (severe) obesity due to excess calories; K21.9 Gastro-esophageal reflux disease without esophagitis; E55.9 Vitamin D deficiency, unspecified; R63.4 Abnormal weight loss; Z68.28 Body mass index [BMI] 28.0-28.9, adult; Z87.891 Personal history of nicotine dependence; Z90.3 Acquired absence of stomach [part of]; Z90.49 Acquired absence of other specified parts of digestive tract; Z79.899 Other long term (current) drug therapy
CPT/HCPCS: 84425; 80053; 82607; 82746; 85027; 82306; 97803; 36415; G0463; 99211

== ENCOUNTER → 2020-05-30 | Outpatient (CLI) | payer MEDICARE ==
[2020-05-30 14:13] VITALS: BP 147/83; PULSE 70; RESP 16; TEMP 97.9; BMI 28.3
--- NOTE | 2020-05-30 14:29 | P.HPBAR ---
Bariatric H&P - History & Physicial H&P Date: 05/30/20 History & Physicial: Visit/CC: f/u needs vit D script Patient initial contact: Initial weight: 103.419 kg Initial weight in pounds: 228.00 Height: 5 ft 2 in Initial BMI: 41.7 Last weight: Current weight: 70.307 kg Current weight in pounds: 155.00 Current BMI: 28.3 [place] body weight (based on NIH guidelines): 49.895 kg Excess body weight loss: 61.8% The patient is a 70 year-old F who presents for Bariatric Assessment. Patient presents today for sleeve gastrectomy follow-up. She is often seen in 2 years. She's had some mild GERD. Past Medical History Past Medical History: Coronary Artery Disease (CAD), Cancer, COPD, CVA/TIA, Hyperlipidemia, Hypertension, Myocardial Infarction ([place]), Sleep Apnea/CPAP/BIPAP Additional Past Medical History / Comment(s): TB in 1985. CPAP MACHINE. SKIN CANCER. 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 Hiatal hernia. (Mar 2018: PT states she has genital wart; it is not open and draining at this time) Last Myocardial Infarction Date:: 01/25/2006 History of Any Multi-Drug Resistant Organisms: None Reported Past Surgical History: Bariatric Surgery, Cholecystectomy, Heart Catheterization With Stent, Hernia Repair Additional Past Surgical History / Comment(s): Cyst removed from thyroid, HEART CATH WITH STENT X2, SURGERY FOR Thoracic Aortic Aneurysm, Ventral hernia repair with mesh July 2017. EGD, COLONOSCOPY. sleeve gastrectomy 05/19/18 (Dr. Jose Hamilton) Past Anesthesia/Blood Transfusion Reactions: Postoperative Nausea & Vomiting (PONV) Date of Last Stent Placement:: 2009 Past Psychological History: Depression Smoking Status: Former smoker Past Alcohol Use History: Occasional Additional Past Alcohol Use History / Comment(s): STARTED SMOKING AT AGE 15, QUIT IN 2011 SMOKED 1PPD. Past Drug Use History: Marijuana Additional Drug Use History / Comment(s): PAST HISTORY - Past Family History Father Family Medical History: COPD, Myocardial Infarction ([place]) Mother Family Medical History: Hypertension Additional Family Medical History / Comment(s): Pacemaker, heart issues Sister(s) Family Medical History: Cancer Surgical - Exam Vital Signs Temp Pulse Resp BP 97.9 F 70 16 147/83 05/30/20 14:11 05/30/20 14:11 05/30/20 14:11 05/30/20 14:11 - General well developed, well nourished, no distress - Eyes PERRL - ENT normal pinna - Neck no masses - Respiratory normal expansion - Cardiovascular Rhythm: regular - Abdomen Abdomen: soft, non tender Bariatric Assessment & Plan Plan: Status post sleeve yesterday. Patient's GERD is minimal will be observed. She'll follow-up in 4 months. Bariatric Checklist Checklist: Plan: Checklist: EGD: 1. Hiatal hernia: 2. H. Pylori: HgbA1c: Vitamin D: Smoking: Former smoker Primary care physician referral: dr. Gale Psychiatry clearance: Cardiology clearance: Sleep study: Diet journal: VTE risk score: VTE risk level: Rehab needs at discharge:
[2020-05-30 16:56] LABS: HCT 41.7 % (34.0-46.0); HGB 13.3 gm/dL (11.4-16.0); MCH 31.6 pg (25.0-35.0); MCHC 31.9 g/dL (31.0-37.0); MCV 98.9 fL (80.0-100.0); Mean Platelet Volume 6.8; Platelet Count 218 k/uL (150-450); RBC 4.22 m/uL (3.80-5.40); RDW 13.3 % (11.5-15.5); WBC 7.3 k/uL (3.8-10.6)
[2020-05-31 01:40] LABS: Folate, Serum 6.2 ng/mL
[2020-05-31 01:41] LABS: African American GFR (CKD) 113.7 (60.0-200.0); Albumin 3.9 g/dL (3.80-4.90); Albumin/Globulin Ratio 1.7 (1.60-3.17); Anion Gap 6.4 mmol/L (4.00-12.00); Calcium 9.1 mg/dL (8.7-10.3); Carbon Dioxide 28.6 mmol/L (21.6-31.8); Globulin 2.3 g/dL (1.6-3.3); Non-African American GFR(CKD) 98.1 (60.0-200.0); Potassium 4.2 mmol/L (3.5-5.5); Total Bilirubin 0.4 mg/dL (0.2-1.2); Total Protein 6.2 g/dL (6.2-8.2)
== END | disposition home or self-care (01) ==
LOC: BARWHC3 13:41
PROVIDERS: ATTEND Surgery
DX: Z48.815 Encounter for surgical aftercare following surgery on the digestive system (principal); E66.01 Morbid (severe) obesity due to excess calories; E44.0 Moderate protein-calorie malnutrition; E55.9 Vitamin D deficiency, unspecified; Z98.84 Bariatric surgery status; Z90.49 Acquired absence of other specified parts of digestive tract
CPT/HCPCS: 84425; 80053; 82607; 82746; 84443; 85027; 82306; 36415; G0463; 99211

== ENCOUNTER 2020-09-13 22:18 | Inpatient (IN) | payer MEDICARE ==
[2020-09-13] MEDS ORDERED: methylPREDNISolone SOD SUCCI 125 MG/2 ML VIAL IV STA (22:25)
[2020-09-13] MEDS ORDERED: SODIUM CHLORIDE 0.9% 1,000 ML IV STA (22:25)
[2020-09-13] MEDS ORDERED: IPRATROPIUM-ALBUTEROL 3 ML NEB INHALATION STA (22:25)
[2020-09-13] MEDS ORDERED: SODIUM CHLORIDE 0.9% 500 ML 500 ML IV STA (22:25)
--- NOTE | 2020-09-13 22:32 | ED ---
SOB HPI - General Chief Complaint: Shortness of Breath Stated Complaint: ALBER Time Seen by Provider: 09/13/20 22:23 Source: patient, EMS, RN notes reviewed, old records reviewed Mode of arrival: EMS Limitations: no limitations - History of Present Illness Initial Comments: This is a 70-year-old female to the ER for evaluation. Patient presents today for evaluation of shortness of breath. Patient does have history of COPD not on home oxygen. Patient's a poor strain secondary to significant shortness of breath currently. Patient presents by EMS on BiPAP. MD Complaint: shortness of breath, cough -: days(s) Severity: severe Severity scale (1-10): 7 Quality: dull Consistency: constant Improves With: oxygen, rest, bronchodilators, upright position Worsens With: exertion, coughing Known History Of: COPD Context: recent URI Associated Symptoms: pain with inspiration, cough, sputum production Treatments Prior to Arrival: oxygen, bronchodilator - Related Data Home Medications Medication Instructions Recorded Confirmed Citalopram Hydrobromide [CeleXA] 20 mg PO DAILY 05/01/16 06/01/20 Metoprolol Tartrate [Lopressor] 25 mg PO DAILY 05/01/16 06/01/20 Umeclidinium [place] [Incruse 1 puff INHALATION RT-DAILY 11/07/17 06/01/20 Ellipta] Albuterol Inhaler (Mhu) [Ventolin 1 puff INHALATION DIRECTED 03/09/19 06/01/20 Hfa Inhaler (Mhu)] Atorvastatin [Lipitor] 20 mg PO DAILY 03/09/19 06/01/20 Furosemide [Lasix] 40 mg PO DAILY 03/09/19 06/01/20 amLODIPine BESYLATE 10 mg PO DAILY 03/09/19 06/01/20 cloNIDine HCL [Catapres] 0.1 mg PO DAILY 03/09/19 06/01/20 Ergocalciferol [Vitamin D2 50,000 unit PO WEEKLY 03/20/19 06/01/20 (DRISDOL)] Previous Rx's Medication Instructions Recorded Omeprazole 40 mg PO DAILY #60 capsule. 05/23/18 Allergies Allergy/AdvReac Type Severity Reaction Status Date / Time levofloxacin [From Levaquin] Allergy Rash/Hives Verified 03/09/19 13:38 Penicillins Allergy Rash/Hives Verified 03/09/19 13:38 Sulfa (Sulfonamide Allergy Rash/Hives Verified 03/09/19 13:38 Antibiotics) sulfamethoxazole Allergy Rash/Hives Verified 03/09/19 13:38 [From Bactrim] trimethoprim [From Bactrim] Allergy Rash/Hives Verified 03/09/19 13:38 Review of Systems ROS Statement: Those systems with pertinent positive or pertinent negative responses have been documented in the HPI. ROS Other: All systems not noted in ROS Statement are negative. Past Medical History Past Medical History: Coronary Artery Disease (CAD), Cancer, COPD, CVA/TIA, Hyperlipidemia, Hypertension, Myocardial Infarction ([place]), Sleep Apnea/CPAP/BIPAP Additional Past Medical History / Comment(s): TB in 1985. CPAP MACHINE. SKIN CANCER. 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 Hiatal hernia. (Mar 2018: PT states she has genital wart; it is not open and draining at this time) Last Myocardial Infarction Date:: 01/25/2006 History of Any Multi-Drug Resistant Organisms: None Reported Past Surgical History: Bariatric Surgery, Cholecystectomy, Heart Catheterization With Stent, Hernia Repair Additional Past Surgical History / Comment(s): Cyst removed from thyroid, HEART CATH WITH STENT X2, SURGERY FOR Thoracic Aortic Aneurysm, Ventral hernia repair with mesh July 2017. EGD, COLONOSCOPY. sleeve gastrectomy 05/19/18 (Dr. Jose Hamilton) Past Anesthesia/Blood Transfusion Reactions: Postoperative Nausea & Vomiting (PONV) Date of Last Stent Placement:: 2009 Past Psychological History: Depression Smoking Status: Former smoker Past Alcohol Use History: Occasional Past Drug Use History: Marijuana - Past Family History Father Family Medical History: COPD, Myocardial Infarction ([place]) Mother Family Medical History: Hypertension Additional Family Medical History / Comment(s): Pacemaker, heart issues Sister(s) Family Medical History: Cancer General Exam Limitations: no limitations General appearance: alert, anxious, in distress Head exam: Present: atraumatic, normocephalic, normal inspection Eye exam: Present: normal appearance, PERRL, EOMI. Absent: scleral icterus, conjunctival injection, periorbital swelling ENT exam: Present: normal exam, mucous membranes moist Neck exam: Present: normal inspection. Absent: tenderness, meningismus, lymphadenopathy Respiratory exam: Present: respiratory distress, wheezes, accessory muscle use, decreased breath sounds, prolonged expiratory. Absent: rales, rhonchi, stridor Cardiovascular Exam: Present: regular rate, normal rhythm, normal heart sounds. Absent: systolic murmur, diastolic murmur, rubs, gallop, clicks GI/Abdominal exam: Present: soft, normal bowel sounds. Absent: distended, tenderness, guarding, rebound, rigid Extremities exam: Present: normal inspection, full ROM, normal capillary refill. Absent: tenderness, pedal edema, joint swelling, calf tenderness Back exam: Present: normal inspection Neurological exam: Present: alert, oriented X3, CN II-XII intact Psychiatric exam: Present: normal affect, normal mood Skin exam: Present: warm, dry, intact, normal color. Absent: rash Course Vital Signs 09/13/20 09/13/20 09/13/20 22:20 22:26 22:37 Temperature 98.1 F Pulse Rate 71 76 Respiratory 29 H 30 H Rate Blood Pressure 126/73 O2 Sat by Pulse 98 Oximetry 09/13/20 09/14/20 22:41 00:51 Temperature Pulse Rate 72 60 Respiratory 18 Rate Blood Pressure 99/56 O2 Sat by Pulse 97 Oximetry - Reevaluation(s) Reevaluation #1: 09/13/20 22:57 Medical record is reviewed Reevaluation #2: 09/13/20 22:57 patient is improving here immensely on BiPAP - Consultations Consultation #1: spoke w Dr Earnest beltran for admission Medical Decision Making - Medical Decision Making 70 female to the ER will be admitted for COPD with recent persistent shortness of breath on BIPAP - Lab Data Result diagrams: 09/13/20 22:26 09/13/20 22:26 Lab Results 09/13/20 09/13/20 09/13/20 Range/Units 22:26 22:26 22:26 WBC 10.9 H (3.8-10.6) k/uL RBC 4.52 (3.80-5.40) m/uL Hgb 13.9 (11.4-16.0) gm/dL Hct 43.4 (34.0-46.0) % MCV 96.1 (80.0-100.0) fL MCH 30.8 (25.0-35.0) pg MCHC 32.1 (31.0-37.0) g/dL RDW 12.8 (11.5-15.5) % Plt Count 259 (150-450) k/uL MPV 6.9 Neutrophils % 50 % Lymphocytes % 34 % Monocytes % 7 % Eosinophils % 7 % Basophils % 1 % Neutrophils # 5.4 (1.3-7.7) k/uL Lymphocytes # 3.7 (1.0-4.8) k/uL Monocytes # 0.7 (0-1.0) k/uL Eosinophils # 0.8 H (0-0.7) k/uL Basophils # 0.1 (0-0.2) k/uL PT 9.9 (9.0-12.0) sec INR 0.9 (<1.2) APTT 20.1 L (22.0-30.0) sec Sodium 142 (137-145) mmol/L Potassium 3.6 (3.5-5.1) mmol/L Chloride 101 (98-107) mmol/L Carbon Dioxide 31 H (22-30) mmol/L Anion Gap 10 mmol/L BUN 25 H (7-17) mg/dL Creatinine 0.84 (0.52-1.04) mg/dL Est GFR (CKD-EPI)AfAm 81 (>60 ml/min/1.73 sqM) Est GFR (CKD-EPI)NonAf 71 (>60 ml/min/1.73 sqM) Glucose 127 H (74-99) mg/dL Calcium 9.2 (8.4-10.2) mg/dL Magnesium 2.2 (1.6-2.3) mg/dL Total Bilirubin 0.4 (0.2-1.3) mg/dL AST 25 (14-36) U/L ALT 17 (4-34) U/L Alkaline Phosphatase 32 L (38-126) U/L Lactate Dehydrogenase 540 (313-618) U/L Troponin I (0.000-0.034) ng/mL C-Reactive Protein 17.1 H (<10.0) mg/L NT-Pro-B Natriuret Pep pg/mL Total Protein 6.9 (6.3-8.2) g/dL Albumin 3.8 (3.5-5.0) g/dL 09/13/20 09/13/20 Range/Units 22:26 22:26 WBC (3.8-10.6) k/uL RBC (3.80-5.40) m/uL Hgb (11.4-16.0) gm/dL Hct (34.0-46.0) % MCV (80.0-100.0) fL MCH (25.0-35.0) pg MCHC (31.0-37.0) g/dL RDW (11.5-15.5) % Plt Count (150-450) k/uL MPV Neutrophils % % Lymphocytes % % Monocytes % % Eosinophils % % Basophils % % Neutrophils # (1.3-7.7) k/uL Lymphocytes # (1.0-4.8) k/uL Monocytes # (0-1.0) k/uL Eosinophils # (0-0.7) k/uL Basophils # (0-0.2) k/uL PT (9.0-12.0) sec INR (<1.2) APTT (22.0-30.0) sec Sodium (137-145) mmol/L Potassium (3.5-5.1) mmol/L Chloride (98-107) mmol/L Carbon Dioxide (22-30) mmol/L Anion Gap mmol/L BUN (7-17) mg/dL Creatinine (0.52-1.04) mg/dL Est GFR (CKD-EPI)AfAm (>60 ml/min/1.73 sqM) Est GFR (CKD-EPI)NonAf (>60 ml/min/1.73 sqM) Glucose (74-99) mg/dL Calcium (8.4-10.2) mg/dL Magnesium (1.6-2.3) mg/dL Total Bilirubin (0.2-1.3) mg/dL AST (14-36) U/L ALT (4-34) U/L Alkaline Phosphatase (38-126) U/L Lactate Dehydrogenase (313-618) U/L Troponin I <0.012 (0.000-0.034) ng/mL C-Reactive Protein (<10.0) mg/L NT-Pro-B Natriuret Pep 128 pg/mL Total Protein (6.3-8.2) g/dL Albumin (3.5-5.0) g/dL - EKG Data -: EKG Interpreted by Me (EKG shows sinus rhythm 75 MN 158 QRS 88 QTc 431) - Radiology Data Radiology results: report reviewed (CXR is negative for acute disaesae), image reviewed Critical Care Time Critical Care Time: Yes Total Critical Care Time: 31 Disposition Clinical Impression: COPD exacerbation, Respiratory failure Disposition: ADMITTED IP TO THIS HOSP Condition: Serious Is patient prescribed a controlled substance at d/c from ED?: No Referrals: Gonsalo Phan DO [Primary Care Provider] - 1-2 days
[2020-09-13 22:57] LABS: Basophils # (A) 0.1 k/uL (0-0.2); Basophils % (A) 1 %; Eosinophils # (A) 0.8 k/uL (0-0.7); Eosinophils % (A) 7 %; HCT 43.4 % (34.0-46.0); HGB 13.9 gm/dL (11.4-16.0); Lymphocytes # (A) 3.7 k/uL (1.0-4.8); Lymphocytes % (A) 34 %; MCH 30.8 pg (25.0-35.0); MCHC 32.1 g/dL (31.0-37.0); MCV 96.1 fL (80.0-100.0); Mean Platelet Volume 6.9; Monocytes # (A) 0.7 k/uL (0-1.0); Monocytes % (A) 7 %; Neutrophils # (A) 5.4 k/uL (1.3-7.7); Neutrophils % (A) 50 %; Platelet Count 259 k/uL (150-450); RBC 4.52 m/uL (3.80-5.40); RDW 12.8 % (11.5-15.5); WBC 10.9 k/uL (3.8-10.6)
--- NOTE | 2020-09-13 22:59 | XR ---
EXAMINATION TYPE: XR chest 1V portable DATE OF EXAM: 09/13/2020 COMPARISON: 05/23/2018 HISTORY: Pneumonia. Short of breath. TECHNIQUE: FINDINGS: There is no heart failure nor confluent pneumonic infiltrate. There is stent in the descend ing thoracic aorta. Heart size is normal. There are no hilar masses. IMPRESSION: No active cardiopulmonary disease. There is clearing of the pleural fluid at the lung bas es compared to old exam. No heart failure.
[2020-09-13 23:06] LABS: Albumin 3.8 g/dL (3.5-5.0); C Reactive Protein 17.1 mg/L (<10.0); Calcium 9.2 mg/dL (8.4-10.2); Magnesium 2.2 mg/dL (1.6-2.3); Potassium 3.6 mmol/L (3.5-5.1); Total Bilirubin 0.4 mg/dL (0.2-1.3); Total Protein 6.9 g/dL (6.3-8.2)
[2020-09-13 23:13] LABS: INR 0.9 (<1.2); Prothrombin Time 9.9 sec (9.0-12.0)
[2020-09-13 23:18] LABS: Partial Thromboplastin Time 20.1 sec (22.0-30.0)
[2020-09-14] MEDS: SODIUM CHLORIDE 0.9% 1,000 ML IV SCH ×2 (02:20→12:28)
[2020-09-14] MEDS: methylPREDNISolone SOD SUCCI 125 MG/2 ML VIAL IV SCH ×2 (06:02→12:26)
[2020-09-14 06:08] LABS: Glucose,Whole Blood 147 mg/dL (75-99)
[2020-09-14] MEDS: ENOXAPARIN 40 MG/0.4 ML SYRINGE SQ SCH (09:14)
[2020-09-14] MEDS: IPRATROPIUM-ALBUTEROL 3 ML NEB INHALATION SCH ×4 (09:15→19:15)
--- NOTE | 2020-09-14 11:10 | P.CNPUL ---
History of Present Illness Consult date: 09/14/20 Requesting physician: Murali Masters Reason for consult: dyspnea, cough, COPD, hypoxemia Chief complaint: Dyspnea, COPD exacerbation. History of present illness: 70-year-old female who sees one of my partners for COPD. She has not seen him for some time. Her primary care physician is down in the [facility]. She came into the emergency room via EMS, on 09/13/2020, with complaints of incre asing and progressive shortness of breath. The going on for a couple of days, and getting worse, and despite numerous breathing treatments, she was not improving. For that reason, she called EMS to take her into the hospital. She was admitted with a diagnosis of COPD exacerbation. She also admits to cough, wheezing, chest tightness, and minimal phlegm production. There was no fever or chills. No chest pain or chest discomfort. She has not seen my partner for a number of years. She states that she was feeling fine and hence didn't think she needed to go back. The patient has a history of coronary artery disease, CVA, hyperlipidemia, hypertension, myocardial infarction, sleep apnea syndrome, tuberculosis back in 1985, can cancer, and hiatal hernia. The patient currently does not smoke. The patient was a previous smoker in the past, quite heavily. She does drink alcohol occasionally, and has used marijuana as well. Review of Systems REVIEW OF SYSTEMS: CONSTITUTIONAL: [Negative.] NEUROLOGIC: [ Negative.] HEENT: [ Negative.] CARDIAC: [Negative.] PULMONARY: Shortness of breath, chest tightness, cough, wheezing, and minimal phlegm production. GI: [Negative.] : [Negative.] RHEUMATOLOGIC: [ Negative.] IMMUNOLOGIC: [ Negative.] ENDOCRINE: [Negative. ] DERMATOLOGIC: [Negative.] Past Medical History Past Medical History: Coronary Artery Disease (CAD), Cancer, COPD, CVA/TIA, Hyperlipidemia, Hypertension, Myocardial Infarction (SD), Sleep Apnea/CPAP/BIPAP Additional Past Medical History / Comment(s): TB in 1985. CPAP MACHINE. SKIN CANCER. 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 Hiatal hernia. (Mar 2018: PT states she has genital wart; it is not open and draining at this time). History of two stents, stent in your thoracic aneurysm Last Myocardial Infarction Date:: 01/25/2006 History of Any Multi-Drug Resistant Organisms: None Reported Past Surgical History: Bariatric Surgery, Cholecystectomy, Heart Catheterization With Stent, Hernia Repair Additional Past Surgical History / Comment(s): Cyst removed from thyroid, HEART CATH WITH STENT X2, SURGERY FOR Thoracic Aortic Aneurysm, Ventral hernia repair with mesh July 2017. EGD, COLONOSCOPY. sleeve gastrectomy 05/19/18 (Dr. Jose Hamilton) Past Anesthesia/Blood Transfusion Reactions: Postoperative Nausea & Vomiting (PONV) Date of Last Stent Placement:: 2009 Past Psychological History: Depression Smoking Status: Former smoker Past Alcohol Use History: Occasional Additional Past Alcohol Use History / Comment(s): STARTED SMOKING AT AGE 15, QUIT IN 2011 SMOKED 1PPD. Past Drug Use History: Marijuana Additional Drug Use History / Comment(s): PAST HISTORY - Past Family History Father Family Medical History: COPD, Myocardial Infarction (SD) Mother Family Medical History: Hypertension Additional Family Medical History / Comment(s): Pacemaker, heart issues Sister(s) Family Medical History: Cancer Medications and Allergies Home Medications Medication Instructions Recorded Confirmed Type Citalopram Hydrobromide [CeleXA] 20 mg PO DAILY 05/01/16 09/14/20 History Metoprolol Tartrate [Lopressor] 25 mg PO DAILY 05/01/16 09/14/20 History Umeclidinium [place] [Incruse 1 puff INHALATION RT-DAILY 11/07/17 09/14/20 History Ellipta] Omeprazole 40 mg PO DAILY #60 capsule. 05/23/18 09/14/20 Rx Atorvastatin [Lipitor] 20 mg PO DAILY 03/09/19 09/14/20 History Furosemide [Lasix] 40 mg PO DAILY 03/09/19 09/14/20 History amLODIPine BESYLATE 10 mg PO DAILY 03/09/19 09/14/20 History cloNIDine HCL [Catapres] 0.1 mg PO DAILY 03/09/19 09/14/20 History Albuterol Nebulized [Ventolin 2.5 mg INHALATION RT-TID PRN 09/14/20 09/14/20 History Nebulized] Hydrochlorothiazide 12.5 mg PO DAILY 09/14/20 09/14/20 History [hydroCHLOROthiazide] Allergies Allergy/AdvReac Type Severity Reaction Status Date / Time levofloxacin [From Levaquin] Allergy Rash/Hives Verified 09/14/20 10:31 Penicillins Allergy Rash/Hives Verified 09/14/20 10:31 Sulfa (Sulfonamide Allergy Rash/Hives Verified 09/14/20 10:31 Antibiotics) sulfamethoxazole Allergy Rash/Hives Verified 09/14/20 10:31 [From Bactrim] trimethoprim [From Bactrim] Allergy Rash/Hives Verified 09/14/20 10:31 Physical Exam Osteopathic Statement: *. No significant issues noted on an osteopathic structural exam other than those noted in the History and Physical/Consult. Vitals: Vital Signs Temp Pulse Pulse Resp BP BP Pulse Ox 09/14/20 09:28 72 09/14/20 09:16 72 09/14/20 08:00 98 F 73 17 134/78 95 09/14/20 03:14 69 18 09/14/20 02:49 97.8 F 69 18 125/75 97 09/14/20 02:45 97.8 F 69 18 125/75 97 09/14/20 00:51 60 18 99/56 97 09/13/20 22:41 72 09/13/20 22:37 76 09/13/20 22:26 30 H 09/13/20 22:20 98.1 F 71 29 H 126/73 98 Intake and Output 09/13/20 09/14/20 09/14/20 22:59 06:59 14:59 Intake Total 420 Balance 420 Intake: Oral 420 Other: Voiding Method Toilet # Voids 1 Weight 73.482 kg 67.7 kg No acute distress, oriented 3. Nasal O2 in place at 2 L. No audible wheezing, use of accessory muscles, or conversational dyspnea. HEENT examination is grossly unremarkable. Mucous membranes are moist. No oral lesions. Neck supple. Full range of motion. No adenopathy thyromegaly or neck vein distention. Cardiovascular examination reveals regular rhythm rate. S1-S2 normal. No S3 or S4. No discernible murmur noted. Heart rate is 72 bpm. Lungs reveal expiratory wheezes and rhonchi. Breath sounds are diminished. There is prolongation on forced maneuver. Adventitious lung sounds are more prominent on forced maneuver. There are no crackles. Abdomen soft bowel sounds are heard. No masses or tenderness. Extremities are intact. No cyanosis clubbing or edema. Skin is without rash or lesion. Neurologic examination is brief but nonfocal. Results - Laboratory Findings CBC and BMP: 09/13/20 22:26 09/13/20 22:26 PT/INR, D-dimer PT 9.9 sec (9.0-12.0) 09/13/20 22: INR 0.9 (<1.2) 09/13/20 22:26 Abnormal lab findings: Abnormal Labs 09/13/20 09/13/20 09/13/20 22:26 22:26 22:26 WBC 10.9 H Eosinophils # 0.8 H APTT 20.1 L Carbon Dioxide 31 H BUN 25 H Glucose 127 H POC Glucose (mg/dL) Alkaline Phosphatase 32 L C-Reactive Protein 17.1 H 09/14/20 06:05 WBC Eosinophils # APTT Carbon Dioxide BUN Glucose POC Glucose (mg/dL) 147 H Alkaline Phosphatase C-Reactive Protein - Diagnostic Findings Chest x-ray: image reviewed Assessment and Plan Assessment: Acute exacerbation of COPD. Previous history of heavy tobacco use. History of coronary artery disease. History of skin cancer. History of CVA. History of hyperlipidemia. History of myocardial infarction. History of hypertension. History of sleep apnea syndrome, currently on CPAP. History of tuberculosis, 1985. History of hiatal hernia. Plan: Plan dated 09/14/2020. The patient's labs, x-rays, and medications are reviewed. We will make sure that she is on appropriate medications including short acting beta agonist, short acting muscarinic antagonist, long-acting beta agonist, inhaled corticosteroids, systemic corticosteroids, and an oral antibiotic for a short course. Additional recommendations and suggestions are forthcoming. Prognosis is guarded. She needs to follow-up with my partner post discharge. No additional recommendations are made. Time with Patient: Greater than 30
[2020-09-14] MEDS ORDERED: METOPROLOL TARTRATE 25 MG TAB PO SCH (11:15)
[2020-09-14 11:53] LABS: Glucose,Whole Blood 132 mg/dL (75-99)
[2020-09-14] MEDS: amLODIPine 10 MG TAB PO SCH (12:25)
[2020-09-14] MEDS: PANTOPRAZOLE 40 MG TABLET PO SCH (12:25)
[2020-09-14] MEDS: ATORVASTATIN 20 MG TAB PO SCH (12:26)
[2020-09-14] MEDS ORDERED: ACETAMINOPHEN TAB 325 MG TAB PO PRN (12:30)
[2020-09-14] MEDS: methylPREDNISolone SOD SUCCI 40 MG/ML 1 ML VIAL IV SCH ×2 (16:09→23:16)
[2020-09-14] MEDS: CITALOPRAM HYDROBROMIDE 20 MG TAB PO SCH (16:09)
[2020-09-14 16:41] LABS: Glucose,Whole Blood 136 mg/dL (75-99)
[2020-09-14] MEDS: INSULIN ASPART (NovoLOG) 100 UNIT/ML VIAL SQ SCH ×2 (17:34→20:27)
[2020-09-14 17:39] VITALS: RESP 18
[2020-09-14] MEDS: BUDESONIDE 1 MG/2 ML NEBU INHALATION SCH (19:15)
[2020-09-14] MEDS: FORMOTEROL FUMARATE 20 MCG/2 ML NEBU INHALATION SCH (19:28)
[2020-09-14 20:25] LABS: Glucose,Whole Blood 162 mg/dL (75-99)
[2020-09-14] MEDS: DOXYCYCLINE 100 MG CAP PO SCH (20:27)
--- NOTE | 2020-09-14 20:37 | P.HPIM ---
History of Present Illness H&P Date: 09/14/20 Chief Complaint: Short of breath History of presenting complaint: This is a pleasant 70-year-old patient of . Chronic stable medical conditions include coronary artery disease with stent, some mild right-sided weakness from prior stroke, hypertension, hyperlipidemia, obstructive sleep apnea uses CPAP machine, TB in 1985, hiatal hernia, surgery for thoracic aortic aneurysm, sleep gastrectomy in [address] Hamilton. Patient presents with 2 weeks of progressive shortness of breath wheezing. Slight cough. Some little clear phlegm. Having chills. No fever. Appetite has been fair. No change in bowel pattern. Given bronchodilators steroids in the ER. Started to feel a bit better. Review of systems: GEN.: Tired EYES: None HEENT: None NECK: None RESPIRATORY: As above CARDIOVASCULAR: None GASTROINTESTINAL: None GENITOURINARY: None MUSCULOSKELETAL: None LYMPHATICS: None HEMATOLOGICAL: None PSYCHIATRY: None NEUROLOGICAL: None Past medical history to include: Coronary artery disease with stent, COPD, stroke with some mild right-sided weakness, hyperlipidemia, hypertension, obstructive sleep apnea uses CPAP, TB 1985, hiatal hernia, sleep gastrectomy in 2018, surgery for thoracic aortic aneurysm Social history: Patient status post smoking age of 15 stopped in 2011. One pack a day. Alcohol occasionally. Lives with her grandson. No occasionally use a cane or a walker. Physical examination: VITAL SIGNS: 98.1, 71, 29, 126/73, 98% on BiPAP upon presentation GENERAL: BMI 28.2, sitting up, slightly tired. EYES: Pupils equal. Conjunctiva normal. HEENT: External appearance of nose and ears normal, oral cavity grossly normal. NECK: JVD not raised; masses not palpable. HEART: First and second heart sounds are normal; no edema. LUNGS:[ Respiratory rate increased, decreased breath sounds prolonged expiration. ABDOMEN: Soft, nontender, liver spleen not palpable, no masses palpable. PSYCH: Alert and oriented x3; mood and affect normal. NEUROLOGICAL: Cranial nerves grossly intact; no facial asymmetry, power and sensation grossly intact. LYMPHATICS: No lymph nodes palpable in the axilla and neck INVESTIGATIONS, reviewed in the clinical context: White count 10.9 hemoglobin 13.9 platelets 259 potassium 3.6 creatinine 0.84 ProBNP 128 Coronavirus [PCR]-not detected EKG tracing personally reviewed by me-normal sinus rhythm Chest x-ray film-no infiltrate Assessment and plan: -Acute COPD exacerbation in an ex-smoker started on bronchodilators, IV and inhaled steroids. Pulmonary consulted -Coronary artery disease with stent-continue with Lopressor, Lipitor -Mild right hemiparesis from prior stroke -Hyperlipidemia, continue with Lipitor -Essential hypertension, continue with amlodipine, Lopressor -Obstructive sleep apnea uses CPAP, continue the same -Hiatal hernia -History of sleep gastrectomy -Depression not otherwise specified, continue Celexa -DVT prophylaxis at [facility] Care was discussed with the patient. Questions answered. Patient will eat 2 nights over stay in the hospital given the severity of the disease Past Medical History Past Medical History: Coronary Artery Disease (CAD), Cancer, COPD, CVA/TIA, Hyperlipidemia, Hypertension, Myocardial Infarction (DC), Sleep Apnea/CPAP/BIPAP Additional Past Medical History / Comment(s): TB in 1985. CPAP MACHINE. SKIN CANCER. 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 Hiatal hernia. (Mar 2018: PT states she has genital wart; it is not open and draining at this time). History of two stents, stent in your thoracic aneurysm Last Myocardial Infarction Date:: 01/25/2006 History of Any Multi-Drug Resistant Organisms: None Reported Past Surgical History: Bariatric Surgery, Cholecystectomy, Heart Catheterization With Stent, Hernia Repair Additional Past Surgical History / Comment(s): Cyst removed from thyroid, HEART CATH WITH STENT X2, SURGERY FOR Thoracic Aortic Aneurysm, Ventral hernia repair with mesh July 2017. EGD, COLONOSCOPY. sleeve gastrectomy 05/19/18 (Dr. Jose Hamilton) Past Anesthesia/Blood Transfusion Reactions: Postoperative Nausea & Vomiting (PONV) Date of Last Stent Placement:: 2009 Past Psychological History: Depression Smoking Status: Former smoker Past Alcohol Use History: Occasional Additional Past Alcohol Use History / Comment(s): STARTED SMOKING AT AGE 15, QUIT IN 2011 SMOKED 1PPD. Past Drug Use History: Marijuana Additional Drug Use History / Comment(s): PAST HISTORY - Past Family History Father Family Medical History: COPD, Myocardial Infarction (DC) Mother Family Medical History: Hypertension Additional Family Medical History / Comment(s): Pacemaker, heart issues Sister(s) Family Medical History: Cancer Medications and Allergies Home Medications Medication Instructions Recorded Confirmed Type Citalopram Hydrobromide [CeleXA] 20 mg PO DAILY 05/01/16 09/14/20 History Metoprolol Tartrate [Lopressor] 25 mg PO DAILY 05/01/16 09/14/20 History Umeclidinium [place] [Incruse 1 puff INHALATION RT-DAILY 11/07/17 09/14/20 History Ellipta] Omeprazole 40 mg PO DAILY #60 capsule. 05/23/18 09/14/20 Rx Atorvastatin [Lipitor] 20 mg PO DAILY 03/09/19 09/14/20 History Furosemide [Lasix] 40 mg PO DAILY 03/09/19 09/14/20 History amLODIPine BESYLATE 10 mg PO DAILY 03/09/19 09/14/20 History cloNIDine HCL [Catapres] 0.1 mg PO DAILY 03/09/19 09/14/20 History Albuterol Nebulized [Ventolin 2.5 mg INHALATION RT-TID PRN 09/14/20 09/14/20 History Nebulized] Hydrochlorothiazide 12.5 mg PO DAILY 09/14/20 09/14/20 History [hydroCHLOROthiazide] Allergies Allergy/AdvReac Type Severity Reaction Status Date / Time levofloxacin [From Levaquin] Allergy Rash/Hives Verified 09/14/20 10:31 Penicillins Allergy Rash/Hives Verified 09/14/20 10:31 Sulfa (Sulfonamide Allergy Rash/Hives Verified 09/14/20 10:31 Antibiotics) sulfamethoxazole Allergy Rash/Hives Verified 09/14/20 10:31 [From Bactrim] trimethoprim [From Bactrim] Allergy Rash/Hives Verified 09/14/20 10:31 Physical Exam Vitals: Vital Signs Temp Pulse Pulse Resp BP BP Pulse Ox 09/14/20 19:36 98.2 F 68 18 123/64 94 L 09/14/20 19:33 67 09/14/20 19:27 67 09/14/20 19:26 67 09/14/20 19:16 65 09/14/20 16:05 52 L 09/14/20 16:00 62 18 129/68 93 L 09/14/20 15:52 52 L 09/14/20 12:00 105 H 16 119/67 94 L 09/14/20 11:52 80 09/14/20 11:41 84 09/14/20 09:28 72 09/14/20 09:16 72 09/14/20 08:00 98 F 73 17 134/78 95 09/14/20 03:14 69 18 09/14/20 02:49 97.8 F 69 18 125/75 97 09/14/20 02:45 97.8 F 69 18 125/75 97 09/14/20 00:51 60 18 99/56 97 09/13/20 22:41 72 09/13/20 22:37 76 09/13/20 22:26 30 H 09/13/20 22:20 98.1 F 71 29 H 126/73 98 Intake and Output 09/14/20 09/14/20 09/14/20 06:59 14:59 22:59 Intake Total 1190 Balance 1190 Intake: Intake, IV Titration 530 Amount Sodium Chloride 0.9% 1, 400 000 ml @ 100 mls/hr IV . Q10H BRE Rx#:[id number] Sodium Chloride 0.9% 1, 130 000 ml @ 130 mls/hr IV . Q7H42M STA Rx#:[id number] Oral 660 Other: Voiding Method Toilet Toilet # Voids 1 Weight 67.7 kg Results CBC & Chem 7: 09/13/20 22:26 09/13/20 22:26 Labs: Abnormal Lab Results - Last 24 Hours (Table) 09/13/20 09/13/20 09/13/20 Range/Units 22:26 22:26 22:26 WBC 10.9 H (3.8-10.6) k/uL Eosinophils # 0.8 H (0-0.7) k/uL APTT 20.1 L (22.0-30.0) sec Carbon Dioxide 31 H (22-30) mmol/L BUN 25 H (7-17) mg/dL Glucose 127 H (74-99) mg/dL POC Glucose (mg/dL) (75-99) mg/dL Alkaline Phosphatase 32 L (38-126) U/L C-Reactive Protein 17.1 H (<10.0) mg/L 09/14/20 09/14/20 09/14/20 Range/Units 06:05 11:50 16:40 WBC (3.8-10.6) k/uL Eosinophils # (0-0.7) k/uL APTT (22.0-30.0) sec Carbon Dioxide (22-30) mmol/L BUN (7-17) mg/dL Glucose (74-99) mg/dL POC Glucose (mg/dL) 147 H 132 H 136 H (75-99) mg/dL Alkaline Phosphatase (38-126) U/L C-Reactive Protein (<10.0) mg/L 09/14/20 Range/Units 20:23 WBC (3.8-10.6) k/uL Eosinophils # (0-0.7) k/uL APTT (22.0-30.0) sec Carbon Dioxide (22-30) mmol/L BUN (7-17) mg/dL Glucose (74-99) mg/dL POC Glucose (mg/dL) 162 H (75-99) mg/dL Alkaline Phosphatase (38-126) U/L C-Reactive Protein (<10.0) mg/L Thrombosis Risk Factor Assmnt - Choose All That Apply Any of the Below Risk Factors Present?: Yes Each Factor Represents 1 point: Abnormal pulmonary function (COPD), Obesity (BMI >25) Other Risk Factors: Yes Each Risk Factor Represents 2 Points: Age 61-74 years Thrombosis Risk Factor Assessment Total Risk Factor Score: 4 Thrombosis Risk Factor Assessment Level: Moderate Risk
[2020-09-15] MEDS: IPRATROPIUM-ALBUTEROL 3 ML NEB INHALATION SCH ×4 (01:25→11:29)
[2020-09-15 06:56] LABS: Glucose,Whole Blood 111 mg/dL (75-99)
[2020-09-15] MEDS: INSULIN ASPART (NovoLOG) 100 UNIT/ML VIAL SQ SCH ×2 (07:25→12:00)
[2020-09-15] MEDS: methylPREDNISolone SOD SUCCI 40 MG/ML 1 ML VIAL IV SCH (07:27)
[2020-09-15] MEDS: PANTOPRAZOLE 40 MG TABLET PO SCH (07:27)
[2020-09-15] MEDS: CITALOPRAM HYDROBROMIDE 20 MG TAB PO SCH (07:27)
[2020-09-15] MEDS: ATORVASTATIN 20 MG TAB PO SCH (07:27)
[2020-09-15] MEDS: DOXYCYCLINE 100 MG CAP PO SCH (07:28)
[2020-09-15] MEDS: amLODIPine 10 MG TAB PO SCH (07:28)
[2020-09-15] MEDS: ENOXAPARIN 40 MG/0.4 ML SYRINGE SQ SCH (07:28)
[2020-09-15] MEDS: FORMOTEROL FUMARATE 20 MCG/2 ML NEBU INHALATION SCH (08:35)
[2020-09-15] MEDS: BUDESONIDE 1 MG/2 ML NEBU INHALATION SCH (08:35)
[2020-09-15] MEDS ORDERED: METOPROLOL TARTRATE 12.5 MG TAB PO SCH (09:00)
[2020-09-15 10:00] VITALS: BP 119/67; TEMP 98
[2020-09-15 11:39] VITALS: PULSE 68
[2020-09-15 11:53] LABS: Glucose,Whole Blood 115 mg/dL (75-99)
--- NOTE | 2020-09-15 13:14 | P.PN ---
Subjective Progress Note Date: 09/15/20 Principal diagnosis: Acute exacerbation of chronic obstructive pulmonary disease 70-year-old female who sees one of my partners for COPD. She has not seen him for some time. Her primary care physician is down in the [facility]. She came into the emergency room via EMS, on 09/13/2020, with complaints of increasing and progressive shortness of breath. The going on for a couple of days, and getting worse, and despite numerous breathing treatments, she was not improving. For that reason, she called EMS to take her into the hospital. She was admitted with a diagnosis of COPD exacerbation. She also admits to cough, wheezing, chest tightness, and minimal phlegm production. There was no fever or chills. No chest pain or chest discomfort. She has not seen my partner for a number of years. She states that she was feeling fine and hence didn't think she needed to go back. The patient has a history of coronary artery disease, CVA, hyperlipidemia, hypertension, myocardial infarction, sleep apnea syndrome, tuberculosis back in 1985, can cancer, and hiatal hernia. The patient currently does not smoke. The patient was a previous smoker in the past, quite heavily. She does drink alcohol occasionally, and has used marijuana as well. The patient is seen today 09/15/2020 in follow-up on the regular medical floor. She is currently sitting up in a chair at the bedside. She is awake and alert in no acute distress. Maintaining O2 saturations in the low 90s on room air. She's afebrile. Blood glucose 115. He remains on DuoNeb inhalations, Pulmicort and Perforomist inhalations, IV Solu-Medrol. Empiric antibiotics in the form of doxycycline. Lovenox for DVT prophylaxis. Protonix for GI prophylaxis. Objective - Vital Signs Vital signs: Vital Signs Temp 98 F 09/15/20 09:55 Pulse 68 09/15/20 11:38 Resp 18 09/15/20 09:55 BP 119/67 09/15/20 09:55 Pulse Ox 91 L 09/15/20 09:55 Intake & Output 09/14/20 09/15/20 09/15/20 18:59 06:59 18:59 Intake Total 1190 1200 Balance 1190 1200 Weight 68.2 kg Intake: Intake, IV Titration 530 1200 Amount Sodium Chloride 0.9% 1, 400 1200 000 ml @ 100 mls/hr IV . Q10H BRE Rx#:[id number] Sodium Chloride 0.9% 1, 130 000 ml @ 130 mls/hr IV . Q7H42M STA Rx#:[id number] Oral 660 Other: Voiding Method Toilet Toilet # Voids 1 - Exam GENERAL EXAM: Alert, very pleasant 70-year-old female patient, on room air, comfortable in no apparent distress. HEAD: Normocephalic. EYES: Normal reaction of pupils, equal size. NOSE: Clear with pink turbinates. THROAT: No erythema or exudates. NECK: No masses, no JVD. CHEST: No chest wall deformity. LUNGS: Equal air entry with faint end expiratory wheeze. Diminished. CVS: S1 and S2 normal with no audible murmur, regular rhythm. ABDOMEN: No hepatosplenomegaly, normal bowel sounds, no guarding or rigidity. SPINE: No scoliosis or deformity SKIN: No rashes CENTRAL NERVOUS SYSTEM: No focal deficits, tone is normal in all 4 extremities. EXTREMITIES: There is no peripheral edema. No clubbing, no cyanosis. Peripheral pulses are intact. - Labs CBC & Chem 7: 09/13/20 22:26 09/13/20 22:26 Labs: Abnormal Lab Results - Last 24 Hours (Table) 09/14/20 09/14/20 09/15/20 Range/Units 16:40 20:23 06:55 POC Glucose (mg/dL) 136 H 162 H 111 H (75-99) mg/dL 09/15/20 Range/Units 11:50 POC Glucose (mg/dL) 115 H (75-99) mg/dL Assessment and Plan Assessment: 1 Acute exacerbation of COPD. 2 Previous history of heavy tobacco use. 3 History of coronary artery disease. 4 History of skin cancer. 5 History of CVA. 6 History of hyperlipidemia. 7 History of myocardial infarction. 8 History of hypertension. 9 History of sleep apnea syndrome, currently on CPAP. 10 History of tuberculosis, 1985. 11 History of hiatal hernia. Plan: The patient was seen and evaluated by Dr. Aldana She is cleared for discharge from the pulmonary standpoint Continue bronchodilators, continue prednisone taper Complete course of antibiotics Follow-up in our office in 1-2 weeks' time She is encouraged to call sooner with any recurrence of symptoms or other questions or concerns I, the cosigning physician, performed a history & physical examination of the patient. Lungs sounds with faint end expiratory wheeze, diminished. Maintaining good O2 saturations in the 90s on room air. I discussed the assessment and plan of care with my nurse practitioner, Gaby Alcazar. I attest to the above note as dictated by her.
--- NOTE | 2020-09-15 23:06 | P.DS ---
Providers Date of admission: 09/14/20 02:07 Expected date of discharge: 09/15/20 Attending physician: Murali Masters Consults: 09/14/20 02:05 Consult Physician Routine Consulting Provider: Celia Holland Consult Reason/Comments: copd Do you want consulting provider notified?: Yes Primary care physician: Gonsalo Iraheta [facility] Course: Chief Complaint: Short of breath History of presenting complaint: This is a pleasant 70-year-old patient of . Chronic stable medical conditions include coronary artery disease with stent, some mild right-sided weakness from prior stroke, hypertension, hyperlipidemia, obstructive sleep apnea uses CPAP machine, TB in 1985, hiatal hernia, surgery for thoracic aortic aneurysm, sleep gastrectomy in [address] Hamilton. Patient presents with 2 weeks of progressive shortness of breath wheezing. Slight cough. Some little clear phlegm. Having chills. No fever. Appetite has been fair. No change in bowel pattern. Given bronchodilators steroids in the ER. Started to feel a bit better. Admitted with acute COPD exacerbation. Responded well. Today-feeling better. Breathing improved. Keen to go home. Cleared by Dr. Hutchinson. Consultation: Dr. Hutchinson from pulmonary Past medical history to include: Coronary artery disease with stent, COPD, stroke with some mild right-sided weakness, hyperlipidemia, hypertension, obstructive sleep apnea uses CPAP, TB 1985, hiatal hernia, sleep gastrectomy in 2018, surgery for thoracic aortic aneurysm Social history: Patient status post smoking age of 15 stopped in 2011. One pack a day. Alcohol occasionally. Lives with her grandson. No occasionally use a cane or a walker. Physical examination: VITAL SIGNS: 98, 65, 18, 119/67, 91% room air GENERAL: BMI 28.2, sitting up, feeling better EYES: Pupils equal. Conjunctiva normal. HEENT: External appearance of nose and ears normal, oral cavity grossly normal. NECK: JVD not raised; masses not palpable. HEART: First and second heart sounds are normal; no edema. LUNGS:[ Respiratory rate increased, decreased breath sounds ABDOMEN: Soft, nontender, liver spleen not palpable, no masses palpable. PSYCH: Alert and oriented x3; mood and affect normal. INVESTIGATIONS, reviewed in the clinical context: White count 10.9 hemoglobin 13.9 platelets 259 potassium 3.6 creatinine 0.84 ProBNP 128 Coronavirus [PCR]-not detected EKG tracing personally reviewed by me-normal sinus rhythm Chest x-ray film-no infiltrate Assessment and plan: -Acute COPD exacerbation in an ex-smoker started on bronchodilators, IV and inhaled steroids. Pulmonary consulted-improved -Coronary artery disease with stent-continue with Lopressor, Lipitor -Mild right hemiparesis from prior stroke -Hyperlipidemia, continue with Lipitor -Essential hypertension, continue with amlodipine, Lopressor -Obstructive sleep apnea uses CPAP, continue the same -Hiatal hernia -History of sleep gastrectomy -Depression not otherwise specified, continue Celexa -DVT prophylaxis at [facility] Disposition: Home Plan - Discharge Summary Discharge Rx Participant: No New Discharge Prescriptions: New predniSONE 0 mg PO DIRECTED #10 tab Doxycycline [Vibramycin] 100 mg PO BID #6 cap Continue Citalopram Hydrobromide [CeleXA] 20 mg PO DAILY Umeclidinium [place] [Incruse Ellipta] 1 puff INHALATION RT-DAILY Omeprazole 40 mg PO DAILY #60 capsule. Atorvastatin [Lipitor] 20 mg PO DAILY amLODIPine BESYLATE 10 mg PO DAILY Albuterol Nebulized [Ventolin Nebulized] 2.5 mg INHALATION RT-TID PRN PRN Reason: Shortness Of Breath Changed Metoprolol Tartrate [Lopressor] 12.5 mg PO BID #0 Discontinued Furosemide [Lasix] 40 mg PO DAILY Hydrochlorothiazide [hydroCHLOROthiazide] 12.5 mg PO DAILY No Action cloNIDine HCL [Catapres] 0.1 mg PO DAILY Discharge Medication List Citalopram Hydrobromide [CeleXA] 20 mg PO DAILY 05/01/16 [History] Umeclidinium [place] [Incruse Ellipta] 1 puff INHALATION RT-DAILY 11/07/17 [History] Omeprazole 40 mg PO DAILY #60 capsule. 05/23/18 [Rx] Atorvastatin [Lipitor] 20 mg PO DAILY 03/09/19 [History] amLODIPine BESYLATE 10 mg PO DAILY 03/09/19 [History] cloNIDine HCL [Catapres] 0.1 mg PO DAILY 03/09/19 [History] Albuterol Nebulized [Ventolin Nebulized] 2.5 mg INHALATION RT-TID PRN 09/14/20 [History] Doxycycline [Vibramycin] 100 mg PO BID #6 cap 09/15/20 [Rx] Metoprolol Tartrate [Lopressor] 12.5 mg PO BID #0 09/15/20 [Rx] predniSONE 0 mg PO DIRECTED #10 tab 09/15/20 [Rx] Follow up Appointment(s)/Referral(s): Gonsalo Phan DO [Primary Care Provider] - 1-2 days (Office will call patient with appointment date and time.) Celia Holland MD [STAFF PHYSICIAN] - 10/17/20 9:15 am () Patient Instructions/Handouts: COPD (Chronic Obstructive Pulmonary Disease) (DC) Discharge Disposition: HOME SELF-CARE
--- NOTE | 2020-09-16 11:52 | CDI ---
Documentation Clarification Form Date: 09/16/20 From: Rosie Rothman Phone: If you have a question about this query, please contact Chary Figueroa, Legal Financial Specialist at [phone] between 8am and 5pm. Admit Date: 09/14/2020 02:07:00 AM Patient Name: Mirta Jauregui Visit Number: [id number] Discharge Date: 09/15/2020 02:19:00 PM ATTENTION: The Clinical Documentation Specialists (CDI) and [facility] Coding Staff appreciate your assistance in clarifying documentation. Please respond to the clarification below the line at the bottom and electronically sign. The CDI & [facility] Coding staff will review the response and follow-up if needed. Please note: Queries are made part of the Legal Health Record. If you have any questions, please contact the author of this message via ITS. Dr. Murali Masters, The patient presented with the following respiratory symptoms: respiratory distress, wheezes, accessory muscle use, decreased breath sounds, prolonged expiratory. History/Risk Factors: AECOPD, JOSE EDUARDO, late of cerebral infarction: right weakness & dysphagia, depression, HTN, hiatal hernia, old [place] Tobacco use: history of Home oxygen: none Clinical Indicators: Respiratory distress, wheezes, accessory muscle use, decreased breath sounds, prolonged expiratory. Vital signs: T-98.1, P-41, R- 29/30, BP-126/73 Pulse oximetry: 98 on BIPAP Lung/Breathing assessment: SOB, labored, accessory muscle use, cough Treatment: nebulizer, IV fluids, IV SoluMedrol, BiPap then O2 In your professional opinion, can you please clarify if these findings signify one of the following conditions? Acute Respiratory Failure Acute on Chronic Respiratory Failure Chronic Respiratory Failure Acute Respiratory Distress Acute Respiratory Insufficiency Other Diagnosis, please specify Unable to determine Specificity: If known, further specify (if known): With hypercapnia? (pCO2 >50 and pH <7.35) With hypoxia? (pO2 <60 mm Hg or SpO2 <91% on room air) acute hypoxic respiratory failure from COPD , POA MTDD
== END 2020-09-15 14:19 | disposition home or self-care (01) | DRG 190 ==
LOC: EC 22:18 → 3SCARD 09-14 02:07 → 4SSUR 09-14 18:34
PROVIDERS: ADMIT Hospitalist; ATTEND Hospitalist
PROC: 5A09357 Assistance with Respiratory Ventilation, Less than 24 Consecutive Hours, Continuous Positive Airway Pressure (ICD-10-PCS; principal; 2020-09-13)
DX: J44.1 Chronic obstructive pulmonary disease with (acute) exacerbation (principal); J96.01 Acute respiratory failure with hypoxia; I69.351 Hemiplegia and hemiparesis following cerebral infarction affecting right dominant side; I25.10 Atherosclerotic heart disease of native coronary artery without angina pectoris; Z20.822 Contact with and (suspected) exposure to COVID-19; I69.391 Dysphagia following cerebral infarction; R13.10 Dysphagia, unspecified; F32.9 Major depressive disorder, single episode, unspecified; I10 Essential (primary) hypertension; E78.5 Hyperlipidemia, unspecified; G47.33 Obstructive sleep apnea (adult) (pediatric); I25.2 Old myocardial infarction; K44.9 Diaphragmatic hernia without obstruction or gangrene; Z79.899 Other long term (current) drug therapy; Z87.891 Personal history of nicotine dependence; Z86.11 Personal history of tuberculosis; Z95.5 Presence of coronary angioplasty implant and graft; Z86.79 Personal history of other diseases of the circulatory system; Z98.84 Bariatric surgery status; Z86.19 Personal history of other infectious and parasitic diseases; Z85.828 Personal history of other malignant neoplasm of skin; Z90.49 Acquired absence of other specified parts of digestive tract; Z87.19 Personal history of other diseases of the digestive system; Z98.890 Other specified postprocedural states; Z88.1 Allergy status to other antibiotic agents; Z88.0 Allergy status to penicillin; Z88.2 Allergy status to sulfonamides; Z82.49 Family history of ischemic heart disease and other diseases of the circulatory system; Z82.5 Family history of asthma and other chronic lower respiratory diseases
CPT/HCPCS: 36415; 71045; 80053; 83615; 83735; 83880; 84484; 85025; 85610; 85730; 86140; 87635; 93005; 94640; 94660; 96360; 96361; 99291

== ENCOUNTER 2020-10-12 10:43 | Inpatient (IN) | payer MEDICARE ==
[2020-10-12] MEDS ORDERED: methylPREDNISolone SOD SUCCI 125 MG/2 ML VIAL IV STA (11:17)
[2020-10-12] MEDS ORDERED: IPRATROPIUM 0.5 MG/2.5 ML NEBU INHALATION STA (11:17)
[2020-10-12] MEDS ORDERED: ALBUTEROL NEBULIZED 2.5 MG/3 ML INHALATION STA (11:17)
--- NOTE | 2020-10-12 11:18 | ED ---
General Adult HPI - General Chief complaint: Shortness of Breath Stated complaint: SOB Source: patient, RN notes reviewed, old records reviewed Mode of arrival: wheelchair Limitations: no limitations - History of Present Illness Initial comments: This is a 70-year-old female with past medical history significant for COPD. Patient states his been she's had difficulty breathing for the last month. Patient states she just quit her steroids on Saturday in the breathing is gotten significantly worse. Patient states anytime she even walks around the breathing is gotten worse. Patient denies any chest pain. Patient denies any palpitations. Patient denies any recent fever chills or cough. Patient denies any swelling to legs or calf tenderness. Patient denies any lightheadedness or dizziness. Patient denies abdominal pain patient denies nausea vomiting diarrhea. Patient states this feels typical of her COPD exacerbations. Patient states her albuterol treatments at home helped but only for very short time. - Related Data Home Medications Medication Instructions Recorded Confirmed Citalopram Hydrobromide [CeleXA] 20 mg PO DAILY 05/01/16 10/12/20 Umeclidinium [place] [Incruse 1 puff INHALATION RT-DAILY 11/07/17 10/12/20 Ellipta] Atorvastatin [Lipitor] 20 mg PO DAILY 03/09/19 10/12/20 amLODIPine BESYLATE 10 mg PO DAILY 03/09/19 10/12/20 cloNIDine HCL [Catapres] 0.1 mg PO DAILY 03/09/19 10/12/20 Albuterol Nebulized [Ventolin 2.5 mg INHALATION RT-TID PRN 09/14/20 10/12/20 Nebulized] Budesonide [Pulmicort] 0.5 mg INHALATION RT-DAILY 10/12/20 10/12/20 Formoterol Fumarate [Perforomist] 20 mcg INHALATION RT-DAILY 10/12/20 10/12/20 Metoprolol Tartrate [Lopressor] 25 mg PO DAILY 10/12/20 10/12/20 Allergies Allergy/AdvReac Type Severity Reaction Status Date / Time levofloxacin [From Levaquin] Allergy Rash/Hives Verified 10/12/20 12:04 Penicillins Allergy Rash/Hives Verified 10/12/20 12:04 Sulfa (Sulfonamide Allergy Rash/Hives Verified 10/12/20 12:04 Antibiotics) sulfamethoxazole Allergy Rash/Hives Verified 10/12/20 12:04 [From Bactrim] trimethoprim [From Bactrim] Allergy Rash/Hives Verified 10/12/20 12:04 Review of Systems ROS Statement: Those systems with pertinent positive or pertinent negative responses have been documented in the HPI. ROS Other: All systems not noted in ROS Statement are negative. Past Medical History Past Medical History: Coronary Artery Disease (CAD), Cancer, COPD, CVA/TIA, Hyperlipidemia, Hypertension, Myocardial Infarction ([place]), Sleep Apnea/CPAP/BIPAP Additional Past Medical History / Comment(s): TB in 1985. CPAP MACHINE. SKIN CANCER. 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 Hiatal hernia. (Mar 2018: PT states she has genital wart; it is not open and draining at this time). History of two stents, stent in your thoracic aneurysm Last Myocardial Infarction Date:: 01/25/2006 History of Any Multi-Drug Resistant Organisms: None Reported Past Surgical History: Bariatric Surgery, Cholecystectomy, Heart Catheterization With Stent, Hernia Repair Additional Past Surgical History / Comment(s): Cyst removed from thyroid, HEART CATH WITH STENT X2, SURGERY FOR Thoracic Aortic Aneurysm, Ventral hernia repair with mesh July 2017. EGD, COLONOSCOPY. sleeve gastrectomy 05/19/18 (Dr. Jose Hamilton) Past Anesthesia/Blood Transfusion Reactions: Postoperative Nausea & Vomiting (PONV) Date of Last Stent Placement:: 2009 Past Psychological History: Depression Smoking Status: Former smoker Past Alcohol Use History: Occasional Past Drug Use History: Marijuana - Past Family History Father Family Medical History: COPD, Myocardial Infarction ([place]) Mother Family Medical History: Hypertension Additional Family Medical History / Comment(s): Pacemaker, heart issues Sister(s) Family Medical History: Cancer General Exam - General Exam Comments Initial Comments: GENERAL: Patient is well-developed and well-nourished. Patient is nontoxic and well- hydrated and is in mild distress. ENT: Neck is soft and supple. No significant lymphadenopathy is noted. Oropharynx is clear. Moist mucous membranes. Neck has full range of motion without eliciting any pain. EYES: The sclera were anicteric and conjunctiva were pink and moist. Extraocular movements were intact and pupils were equal round and reactive to light. Eyelids were unremarkable. PULMONARY: She has diminished breath sounds throughout and expiratory wheezing. CARDIOVASCULAR: There is a regular rate and rhythm without any murmurs gallops or rubs. ABDOMEN: Soft and nontender with normal bowel sounds. SKIN: Skin is clear with no lesions or rashes and otherwise unremarkable. NEUROLOGIC: Patient is alert and oriented x3. Cranial nerves II through XII are grossly intact. Motor and sensory are also intact. Normal speech, volume and content. Symmetrical smile. MUSCULOSKELETAL: Normal extremities with adequate strength and full range of motion. No lower extremity swelling or edema. No calf tenderness. LYMPHATICS: No significant lymphadenopathy is noted PSYCHIATRIC: Normal psychiatric evaluation. Limitations: no limitations Course Vital Signs 10/12/20 10/12/20 10/12/20 11:01 11:16 11:30 Temperature 98.9 F Pulse Rate 79 70 Respiratory 22 22 18 Rate Blood Pressure 129/77 136/81 O2 Sat by Pulse 95 93 L Oximetry 10/12/20 10/12/20 12:50 13:02 Temperature Pulse Rate 88 68 Respiratory Rate Blood Pressure O2 Sat by Pulse Oximetry Medical Decision Making - Medical Decision Making EKG shows normal sinus rhythm at 69 bpm PA interval 228 QRSs 84 QT interval 396 QTC is 424. Patient's EKG shows no ST segment elevation or depression. And admitted. I spoke with Dr. Masters agreed to admit the patient admitted the patient wrote admitting orders. Patient had Solu-Medrol and breathing treatments continued on the floor. I went back and reevaluated the patient she continued to be wheezy but somewhat improved Patient received 3 breathing treatments in the emergency department as well as Solu-Medrol. Patient's x-ray showed no acute abnormality. Patient will be placed on antibiotics - Lab Data Result diagrams: 10/12/20 11:40 10/12/20 11:40 Critical Care Time Critical Care Time: Yes Total Critical Care Time: 35 Disposition Clinical Impression: Acute exacerbation of chronic obstructive pulmonary disease Disposition: ADMITTED IP TO THIS [facility] Time of Disposition: 13:22
[2020-10-12 11:55] LABS: Basophils # (A) 0.1 k/uL (0-0.2); Basophils % (A) 1 %; Eosinophils # (A) 0.4 k/uL (0-0.7); Eosinophils % (A) 6 %; HCT 40.2 % (34.0-46.0); HGB 13.4 gm/dL (11.4-16.0); Lymphocytes # (A) 1.3 k/uL (1.0-4.8); Lymphocytes % (A) 21 %; MCH 32.3 pg (25.0-35.0); MCHC 33.4 g/dL (31.0-37.0); MCV 96.7 fL (80.0-100.0); Mean Platelet Volume 6.4; Monocytes # (A) 0.4 k/uL (0-1.0); Monocytes % (A) 6 %; Neutrophils # (A) 4.2 k/uL (1.3-7.7); Neutrophils % (A) 66 %; Platelet Count 182 k/uL (150-450); RBC 4.16 m/uL (3.80-5.40); RDW 13.1 % (11.5-15.5); WBC 6.3 k/uL (3.8-10.6)
[2020-10-12 12:12] LABS: ALT 23 U/L (4-34); AST 27 U/L (14-36); African American GFR (CKD) >90 (>60 ml/min/1.73 sqM); Albumin 3.6 g/dL (3.5-5.0); Alkaline Phosphatase 34 U/L (38-126); Anion Gap 4 mmol/L; Blood Urea Nitrogen 15 mg/dL (7-17); Calcium 9.2 mg/dL (8.4-10.2); Carbon Dioxide 31 mmol/L (22-30); Chloride 102 mmol/L (98-107); Glucose 93 mg/dL (74-99); Magnesium 2.3 mg/dL (1.6-2.3); Non-African American GFR(CKD) >90 (>60 ml/min/1.73 sqM); Potassium 3.6 mmol/L (3.5-5.1); Sodium 137 mmol/L (137-145); Total Bilirubin 0.5 mg/dL (0.2-1.3)
[2020-10-12 12:22] LABS: INR 0.9 (<1.2); Prothrombin Time 9.6 sec (9.0-12.0)
[2020-10-12 12:29] LABS: Partial Thromboplastin Time 20.7 sec (22.0-30.0)
--- NOTE | 2020-10-12 13:03 | XR ---
EXAMINATION TYPE: XR chest 2V DATE OF EXAM: 10/12/2020 COMPARISON: 09/13/2020 INDICATION: Difficulty breathing short of breath TECHNIQUE: Frontal and lateral views of the chest are obtained. FINDINGS: The heart size is normal. The pulmonary vasculature is normal. The lungs are clear. Stents as do the aorta. IMPRESSION: 1. No acute pulmonary process.
--- NOTE | 2020-10-12 17:17 | P.CNPUL ---
History of Present Illness Consult date: 10/12/20 Reason for consult: dyspnea, COPD History of present illness: 70-year-old female patient with known history of COPD who is presenting today with worsening shortness of breath. The patient has moderately severe COPD and previous spirometry from 2079 showed an FEV1 of 0.9 L which is in order of 46% of predicted. She has been having difficulty breathing for almost a month. She was in the hospital on 09/14/2020 and at that time the patient was seen by Dr. Campos and the patient was diagnosed having an acute COPD exacerbation and she was treated accordingly and she was discharged home. At the time of discharge, the patient was given a prednisone burst taper. The patient was asked to continue Incruse and Ventolin rescue inhaler on an as-needed basis. She was also given a course of doxycycline. In the hospital, the patient received IV Solu-Medrol. The patient is coming in for a similar presentation. Denies having any cough or sputum production. No swelling in lower extremities. No angina or palpitation. Note that the patient has been treated with a combination of Perforomist and Pulmicort nebulized treatments in addition to Incruse on outpatient basis and she uses Ventolin rescue inhaler when necessary. In the ED, the patient otherwise account of 6.3 and the patient also had hemoglobin of 13.1 and normal coagulation profile, and the renal function was stable with a creatinine of 0.5, normal LFTs, lactic acid level was at 1.7, proBNP level was 252 and the troponin was negative at less than 0.012. . The Covid 19 screen was negative. Chest x-ray showed no acute process. The patient has an endovascular stent throughout her aorta. This includes the ascending and descending aorta including the arch. Note that the patient also has multiple comorbidities including COPD, CAD with previous coronary stenting, history of aortic aneurysm with endovascular stent grafting, history of CVA with some mild right-sided hemiparesis, hyperlipidemia, hypertension, obstructive sleep apnea, history of morbid obesity post-sleeve gastrectomy and history of depression. Review of Systems Constitutional: Reports as per HPI Eyes: denies as per HPI, denies blurred vision, denies bulging eye, denies decreased vision, denies diplopia, denies discharge, denies dry eye, denies irritation, denies itching, denies pain, denies photophobia, denies loss of peripheral vision, denies loss of vision, denies tunnel vision/blind spots Ears: deny: decreased hearing, ear discharge, earache, tinnitus Ears, nose, mouth and throat: Reports as per HPI Breasts: absent: as per HPI, change in shape, gynecomastia, masses, nipple discharge, pain, skin changes, swelling Cardiovascular: Reports as per HPI, Reports decreased exercise tolerance, Reports dyspnea on exertion Respiratory: Reports as per HPI, Reports dyspnea Gastrointestinal: Reports as per HPI Genitourinary: Reports as per HPI Menstruation: Reports as per HPI Musculoskeletal: Reports as per HPI Musculoskeletal: absent: ankle pain, ankle stiffness, ankle swelling Integumentary: Reports as per HPI Neurological: Reports as per HPI Psychiatric: Reports as per HPI Endocrine: Reports as per HPI Hematologic/Lymphatic: Reports as per HPI Allergic/Immunologic: Reports as per HPI Past Medical History Past Medical History: Coronary Artery Disease (CAD), Cancer, COPD, CVA/TIA, Hyperlipidemia, Hypertension, Myocardial Infarction ([place]), Sleep Apnea/CPAP/BIPAP Additional Past Medical History / Comment(s): CAD, previous history of coronary stent, thoracic aortic aneurysm with previous endovascular stent grafting, remote history of tuberculosis back in 1985, twice a with an AHI of 21, not utilizing her BiPAP, skin cancer, history of CVA with residual right-sided weakness, obesity with a previous history of sleep gastrectomy, COPD Last Myocardial Infarction Date:: 01/25/2006 History of Any Multi-Drug Resistant Organisms: None Reported Past Surgical History: Bariatric Surgery, Cholecystectomy, Heart Catheterization With Stent, Hernia Repair Additional Past Surgical History / Comment(s): Cyst removed from thyroid, HEART CATH WITH STENT X2, SURGERY FOR Thoracic Aortic Aneurysm, Ventral hernia repair with mesh July 2017. EGD, COLONOSCOPY. sleeve gastrectomy 05/19/18 (Dr. Jose Hamilton) Past Anesthesia/Blood Transfusion Reactions: Postoperative Nausea & Vomiting (PONV) Date of Last Stent Placement:: 2009 Past Psychological History: Depression Smoking Status: Former smoker Past Alcohol Use History: Occasional Past Drug Use History: Marijuana - Past Family History Father Family Medical History: COPD, Myocardial Infarction ([place]) Mother Family Medical History: Hypertension Additional Family Medical History / Comment(s): Pacemaker, heart issues Sister(s) Family Medical History: Cancer Medications and Allergies Home Medications Medication Instructions Recorded Confirmed Type Citalopram Hydrobromide [CeleXA] 20 mg PO DAILY 05/01/16 10/12/20 History Umeclidinium [place] [Incruse 1 puff INHALATION RT-DAILY 11/07/17 10/12/20 History Ellipta] Atorvastatin [Lipitor] 20 mg PO DAILY 03/09/19 10/12/20 History amLODIPine BESYLATE 10 mg PO DAILY 03/09/19 10/12/20 History cloNIDine HCL [Catapres] 0.1 mg PO DAILY 03/09/19 10/12/20 History Albuterol Nebulized [Ventolin 2.5 mg INHALATION RT-TID PRN 09/14/20 10/12/20 History Nebulized] Budesonide [Pulmicort] 0.5 mg INHALATION RT-DAILY 10/12/20 10/12/20 History Formoterol Fumarate [Perforomist] 20 mcg INHALATION RT-DAILY 10/12/20 10/12/20 History Metoprolol Tartrate [Lopressor] 25 mg PO DAILY 10/12/20 10/12/20 History Allergies Allergy/AdvReac Type Severity Reaction Status Date / Time levofloxacin [From Levaquin] Allergy Rash/Hives Verified 10/12/20 12:04 Penicillins Allergy Rash/Hives Verified 10/12/20 12:04 Sulfa (Sulfonamide Allergy Rash/Hives Verified 10/12/20 12:04 Antibiotics) sulfamethoxazole Allergy Rash/Hives Verified 10/12/20 12:04 [From Bactrim] trimethoprim [From Bactrim] Allergy Rash/Hives Verified 10/12/20 12:04 Physical Exam Vitals: Vital Signs Temp Pulse Resp BP Pulse Ox 10/12/20 13:48 67 20 131/67 95 10/12/20 13:02 68 10/12/20 12:50 88 10/12/20 11:30 70 18 136/81 93 L 10/12/20 11:16 22 10/12/20 11:01 98.9 F 79 22 129/77 95 Intake and Output 10/12/20 10/12/20 10/12/20 06:59 14:59 22:59 Other: Weight 68.039 kg Gen. appearance, comfortable likely distress. Head exam was generally normal. There was no scleral icterus or corneal arcus. Mucous membranes were moist. Neck was supple and without jugular venous distension, thyromegaly, or carotid bruits. Carotids were easily palpable bilaterally. There was no adenopathy. Lungs are diminished and the patient is prolongation of exhalation phase of breathing Cardiac exam revealed the PMI to be normally situated and sized. The rhythm was regular and no extrasystoles were noted during several minutes of auscultation. The first and second heart sounds were normal and physiologic splitting of the second heart sound was noted. There were no murmurs, rubs, clicks, or gallops. Abdominal exam revealed normal bowel sounds. The abdomen was soft, non-tender, and without masses, organomegaly, or appreciable enlargement of the abdominal aorta. Examination of the extremities revealed easily palpable radial, femoral and pedal pulses. There was no cyanosis, clubbing or edema. Examination of the skin revealed no evidence of significant rashes, suspicious appearing nevi or other concerning lesions. Neurologically, the patient is awake and alert and the patient does not have any focal neurological deficit. Cranial nerves are essentially intact. Results - Laboratory Findings CBC and BMP: 10/12/20 11:40 10/12/20 11:40 PT/INR, D-dimer PT 9.6 sec (9.0-12.0) 10/12/20 11:40 INR 0.9 (<1.2) 10/12/20 11:40 Abnormal lab findings: Abnormal Labs 10/12/20 10/12/20 11:40 11:40 APTT 20.7 L Carbon Dioxide 31 H Creatinine 0.51 L Alkaline Phosphatase 34 L Total Protein 6.0 L - Diagnostic Findings Chest x-ray: image reviewed Assessment and Plan Plan: 1 acute exacerbation of chronic COPD. The patient is known to have moderate to severe COPD with an FEV1 of 47% of predicted. She had a recent hospitalization back in August 2020 for the same and she is coming in with similar symptoms of worsening shortness of breath. 2 severe COPD with an FEV1 of 47% of predicted maintained on a combination of Perforomist Pulmicort and Incruse on outpatient basis in addition to albuterol nebulized treatment. She is actually dependent 3 coronary artery disease 4 history of CVA with some residual right-sided weakness 5 hyperlipidemia 6 hypertension 7 obstructive sleep apnea with an AHI of 21 and the patient will maintain on BiPAP at a pressure of 16/10 cm of water 8 remote history of tuberculosis 9 sleeve gastrectomy with subsequent weight loss, surgery was done in 2018 10 hiatal hernia 11 thoracic aortic aneurysm post endovascular stent grafting Plan The patient's presentation is typical of an acute COPD exacerbation. We'll start on DuoNeb nebulized treatments around the clock. We'll start on IV Solu- Medrol. No evidence of any acute pneumonia at this point in time. She'll be admitted for acute COPD exacerbation pH is not utilizing her BiPAP for now. She will need oxygen to maintain a saturation above 90%. DVT prophylaxis. Resume home medications. We'll continue to follow. Outpatient respiratory medications are appropriate as the patient is on a combination of Perforomist and Pulmicort and Incruse.
--- NOTE | 2020-10-12 18:03 | P.HPIM ---
History of Present Illness H&P Date: 10/12/20 Chief Complaint: Difficulty in breathing Patient is a 70-year-old female with a long history of coronary artery disease status post stent placement x2, thoracic aortic aneurysm repair, sleeve gastrectomy, COPD, CVA/TIA, hypertension, hyperlipidemia, history of MD, obstructive sleep apnea, depression previous history of smoking and occasional marijuana use presents to ER with the complaints of difficulty in breathing worsening since last Saturday. Patient was admitted to the hospital twice since August 2020 with COPD exacerbation and was on steroid tapering course. Patient recently completed her steroid tapering course and her symptoms worsening for the past 4 to 5 days. Denied any complaints of chest pain. No palpitations. No fever no chills. Patient does have cough and unable to bring up any sputum. Denied any leg swelling. No dizziness or lightheadedness. No nausea vomiting or abdominal pain or diarrhea. Patient presents to the hospital due to worsening shortness of breath. Chest x-ray showed no acute cardiopulmonary process EKG showed normal sinus rhythm Laboratory data showed WBC 6.3, hemoglobin 13.4, platelets 182 Sodium 137 potassium 3.6 chloride 102 bicarb is 31 BUN 15 and creatinine 0.51 and blood sugar is 171 and her liver enzymes are not elevated proBNP 252 Coronavirus PCR not detected. Review of Systems Constitutional: Patient denies any fever or chills . No generalized weakness or weight loss. Abdomen: Patient denied nausea vomiting and diarrhea and abdominal pain. Cardiovascular: Patient denies any chest pain or short of breath no palpitations. Respiratory: Patient does complain of cough without sputum production and difficulty in breathing. Neurologic: Patient denied any numbness or tingling headache. Musculoskeletal: Patient denies any complaints of joint swelling or deformity. Skin: Negative Psychiatric: Negative Endocrine: No heat or cold intolerance. No recent weight gain. Genitourinary: No dysuria or hematuria. All other 14 point ROS negative except the above Past Medical History Past Medical History: Coronary Artery Disease (CAD), Cancer, COPD, CVA/TIA, Hyperlipidemia, Hypertension, Myocardial Infarction (MD), Sleep Apnea/CPAP/BIPAP Additional Past Medical History / Comment(s): CAD, previous history of coronary stent, thoracic aortic aneurysm with previous endovascular stent grafting, remote history of tuberculosis back in 1985, twice a with an AHI of 21, not utilizing her BiPAP, skin cancer, history of CVA with residual right-sided weakness, obesity with a previous history of sleep gastrectomy, COPD Last Myocardial Infarction Date:: 01/25/2006 History of Any Multi-Drug Resistant Organisms: None Reported Past Surgical History: Bariatric Surgery, Cholecystectomy, Heart Catheterization With Stent, Hernia Repair Additional Past Surgical History / Comment(s): Cyst removed from thyroid, HEART CATH WITH STENT X2, SURGERY FOR Thoracic Aortic Aneurysm, Ventral hernia repair with mesh July 2017. EGD, COLONOSCOPY. sleeve gastrectomy 05/19/18 (Dr. Jose Hamilton) Past Anesthesia/Blood Transfusion Reactions: Postoperative Nausea & Vomiting (PONV) Date of Last Stent Placement:: 2009 Past Psychological History: Depression Smoking Status: Former smoker Past Alcohol Use History: Occasional Past Drug Use History: Marijuana - Past Family History Father Family Medical History: COPD, Myocardial Infarction (MD) Mother Family Medical History: Hypertension Additional Family Medical History / Comment(s): Pacemaker, heart issues Sister(s) Family Medical History: Cancer Medications and Allergies Home Medications Medication Instructions Recorded Confirmed Type Citalopram Hydrobromide [CeleXA] 20 mg PO DAILY 05/01/16 10/12/20 History Umeclidinium [place] [Incruse 1 puff INHALATION RT-DAILY 11/07/17 10/12/20 History Ellipta] Atorvastatin [Lipitor] 20 mg PO DAILY 03/09/19 10/12/20 History amLODIPine BESYLATE 10 mg PO DAILY 03/09/19 10/12/20 History cloNIDine HCL [Catapres] 0.1 mg PO DAILY 03/09/19 10/12/20 History Albuterol Nebulized [Ventolin 2.5 mg INHALATION RT-TID PRN 09/14/20 10/12/20 History Nebulized] Budesonide [Pulmicort] 0.5 mg INHALATION RT-DAILY 10/12/20 10/12/20 History Formoterol Fumarate [Perforomist] 20 mcg INHALATION RT-DAILY 10/12/20 10/12/20 History Metoprolol Tartrate [Lopressor] 25 mg PO DAILY 10/12/20 10/12/20 History Allergies Allergy/AdvReac Type Severity Reaction Status Date / Time levofloxacin [From Levaquin] Allergy Rash/Hives Verified 10/12/20 12:04 Penicillins Allergy Rash/Hives Verified 10/12/20 12:04 Sulfa (Sulfonamide Allergy Rash/Hives Verified 10/12/20 12:04 Antibiotics) sulfamethoxazole Allergy Rash/Hives Verified 10/12/20 12:04 [From Bactrim] trimethoprim [From Bactrim] Allergy Rash/Hives Verified 10/12/20 12:04 Physical Exam Vitals: Vital Signs Temp Pulse Pulse Resp BP BP Pulse Ox 10/12/20 17:48 97.8 F 66 18 140/79 96 10/12/20 13:48 67 20 131/67 95 10/12/20 13:02 68 10/12/20 12:50 88 10/12/20 11:30 70 18 136/81 93 L 10/12/20 11:16 22 10/12/20 11:01 98.9 F 79 22 129/77 95 Intake and Output 10/12/20 10/12/20 10/12/20 06:59 14:59 22:59 Other: Weight 68.039 kg PHYSICAL EXAMINATION: Patient is lying in the bed comfortably, no acute distress, awake alert and oriented.. HEENT: Normocephalic. Neck is supple. Pupils reactive. Nostrils clear. Oral cavity is moist. Ears reveal no drainage. Neck reveals no JVD, carotid bruits, or thyromegaly. CHEST EXAMINATION: Trachea is central. Symmetrical expansion. Bilateral coarse breath sounds and crackles and minimal expiratory wheeze. Nonlabored breathing. CARDIAC: Normal S1, S2 with no gallops. No murmurs ABDOMEN: Soft. Bowel sounds normal. No organomegaly. No abdominal bruits. Extremities: reveal no edema. No clubbing or cyanosis Neurologically awake, alert, oriented x3 with well-coordinated movements. No focal deficits noted Skin: No rash or skin lesions. Psychiatric: Coperative. Nonsuicidal Musculoskeletal: No joint swelling or deformity. Normal range of motion. Results CBC & Chem 7: 10/12/20 11:40 10/12/20 11:40 Labs: Abnormal Lab Results - Last 24 Hours (Table) 10/12/20 10/12/20 Range/Units 11:40 11:40 APTT 20.7 L (22.0-30.0) sec Carbon Dioxide 31 H (22-30) mmol/L Creatinine 0.51 L (0.52-1.04) mg/dL Alkaline Phosphatase 34 L (38-126) U/L Total Protein 6.0 L (6.3-8.2) g/dL Thrombosis Risk Factor Assmnt - DVT/VTE Prophylaxis DVT/VTE Prophylaxis: Pharmacologic Prophylaxis ordered Assessment and Plan Assessment: Shortness of breath secondary to acute COPD exacerbation Severe COPD with FEV1 of 47% of predicted. Oxygen dependent. Coronary arteries with history of stent placement Hypertension Hyperlipidemia History of CVA with minimal right-sided residual weakness. Obstructive sleep apnea on CPAP at home History of sleeve gastrectomy surgery Osteoarthritis Hiatal hernia repair history Thoracic aortic aneurysm post endovascular stent grafting Previous history of smoking DVT prophylaxis with heparin subcu Plan: Patient will be continued on IV Solu-Medrol 60 mg every 6 hourly and continue with Pulmicort and Perforomist and empiric antibiotics in the form of Omnicef. Continue with oxygen supplementation and continue with home medications. Monitor closely. Pulmonary is on board. Patient may need bronchoscopy. Further recommendations based on clinical course. Time with Patient: Greater than 30
[2020-10-12] MEDS: methylPREDNISolone SOD SUCCI 125 MG/2 ML VIAL IV SCH ×2 (18:32→23:50)
[2020-10-12] MEDS: HEPARIN SODIUM,PORCINE 5,000 UNIT/ML 1 ML VIAL SQ SCH ×2 (18:38→23:50)
[2020-10-12 21:21] LABS: Glucose,Whole Blood 171 mg/dL (75-99)
[2020-10-12] MEDS: CEFDINIR 300 MG CAP PO SCH (22:14)
[2020-10-12] MEDS: INSULIN ASPART (NovoLOG) 100 UNIT/ML VIAL SQ SCH (22:14)
[2020-10-13 06:08] LABS: Glucose,Whole Blood 106 mg/dL (75-99)
[2020-10-13] MEDS: INSULIN ASPART (NovoLOG) 100 UNIT/ML VIAL SQ SCH ×4 (06:24→20:39)
[2020-10-13] MEDS: methylPREDNISolone SOD SUCCI 125 MG/2 ML VIAL IV SCH ×4 (06:38→22:42)
[2020-10-13] MEDS: CEFDINIR 300 MG CAP PO SCH ×2 (08:14→20:39)
[2020-10-13] MEDS: ATORVASTATIN 20 MG TAB PO SCH (08:14)
[2020-10-13] MEDS: HEPARIN SODIUM,PORCINE 5,000 UNIT/ML 1 ML VIAL SQ SCH ×3 (08:14→22:42)
[2020-10-13] MEDS: CITALOPRAM HYDROBROMIDE 20 MG TAB PO SCH (08:14)
[2020-10-13] MEDS: METOPROLOL TARTRATE 25 MG TAB PO SCH (08:14)
[2020-10-13] MEDS: cloNIDine HCL 0.1 MG TAB PO SCH (08:14)
[2020-10-13] MEDS: amLODIPine 10 MG TAB PO SCH (08:15)
[2020-10-13] MEDS: BUDESONIDE 0.5 MG/2 ML NEBU INHALATION SCH (08:45)
[2020-10-13] MEDS: IPRATROPIUM-ALBUTEROL 3 ML NEB INHALATION PRN ×4 (08:45→21:09)
[2020-10-13] MEDS: FORMOTEROL FUMARATE 20 MCG/2 ML NEBU INHALATION SCH (08:45)
[2020-10-13 11:46] LABS: Glucose,Whole Blood 106 mg/dL (75-99)
--- NOTE | 2020-10-13 11:52 | P.PN ---
Subjective Progress Note Date: 10/13/20 70-year-old female patient with known history of COPD who is presenting today with worsening shortness of breath. The patient has moderately severe COPD and previous spirometry from 2079 showed an FEV1 of 0.9 L which is in order of 46% of predicted. She has been having difficulty breathing for almost a month. She was in the hospital on 09/14/2020 and at that time the patient was seen by Dr. Campos and the patient was diagnosed having an acute COPD exacerbation and she was treated accordingly and she was discharged home. At the time of discharge, the patient was given a prednisone burst taper. The patient was asked to continue Incruse and Ventolin rescue inhaler on an as-needed basis. She was also given a course of doxycycline. In the hospital, the patient received IV Solu-Medrol. The patient is coming in for a similar presentation. Denies having any cough or sputum production. No swelling in lower extremities. No angina or palpitation. Note that the patient has been treated with a combination of Perforomist and Pulmicort nebulized treatments in addition to Incruse on outpatient basis and she uses Ventolin rescue inhaler when necessary. In the ED, the patient otherwise account of 6.3 and the patient also had hemoglobin of 13.1 and normal coagulation profile, and the renal function was stable with a creatinine of 0.5, normal LFTs, lactic acid level was at 1.7, proBNP level was 252 and the troponin was negative at less than 0.012. . The Covid 19 screen was negative. Chest x-ray showed no acute process. The patient has an endovascular stent throughout her aorta. This includes the ascending and descending aorta including the arch. Note that the patient also has multiple comorbidities including COPD, CAD with previous coronary stenting, history of aortic aneurysm with endovascular stent grafting, history of CVA with some mild right-sided hemiparesis, hyperlipidemia, hypertension, obstructive sleep apnea, history of morbid obesity post-sleeve gastrectomy and history of depression. On today's evaluation of 10/13/2020, the patient is feeling less short of [place] th. She is improving. She is on bronchodilators. She is also on IV Solu- Medrol. Clinically she is improving. I saw her in consultation yesterday. She was an acute COPD exacerbation. medication adjustments were done. No chest pain. No nausea. No vomiting. No diarrhea. No headaches. No altered mentation. Objective - Vital Signs Vital signs: Vital Signs Temp 98.6 F 10/13/20 08:10 Pulse 76 10/13/20 09:11 Resp 20 10/13/20 08:10 BP 131/84 10/13/20 08:10 Pulse Ox 96 10/13/20 08:10 Intake & Output 10/12/20 10/13/20 10/13/20 18:59 06:59 18:59 Intake Total 50 200 240 Balance 50 200 240 Weight 71.5 kg 69.5 kg Intake: IV 50 cefTRIAXone 2 gm In 50 Sodium Chloride 0.9% 50 ml @ 100 mls/hr IVPB ONCE STA Rx#:[id number] Oral 200 240 - Exam Gen. appearance, comfortable likely distress. Head exam was generally normal. There was no scleral icterus or corneal arcus. Mucous membranes were moist. Neck was supple and without jugular venous distension, thyromegaly, or carotid bruits. Carotids were easily palpable bilaterally. There was no adenopathy. Lungs are diminished and the patient is prolongation of exhalation phase of breathing Cardiac exam revealed the PMI to be normally situated and sized. The rhythm was regular and no extrasystoles were noted during several minutes of auscultation. The first and second heart sounds were normal and physiologic splitting of the second heart sound was noted. There were no murmurs, rubs, clicks, or gallops. Abdominal exam revealed normal bowel sounds. The abdomen was soft, non-tender, and without masses, organomegaly, or appreciable enlargement of the abdominal aorta. Examination of the extremities revealed easily palpable radial, femoral and pedal pulses. There was no cyanosis, clubbing or edema. Examination of the skin revealed no evidence of significant rashes, suspicious appearing nevi or other concerning lesions. Neurologically, the patient is awake and alert and the patient does not have any focal neurological deficit. Cranial nerves are essentially intact. - Labs CBC & Chem 7: 10/12/20 11:40 10/12/20 11:40 Labs: Abnormal Lab Results - Last 24 Hours (Table) 10/12/20 10/12/20 10/12/20 Range/Units 11:40 11:40 21:19 APTT 20.7 L (22.0-30.0) sec Carbon Dioxide 31 H (22-30) mmol/L Creatinine 0.51 L (0.52-1.04) mg/dL POC Glucose (mg/dL) 171 H (75-99) mg/dL Alkaline Phosphatase 34 L (38-126) U/L Total Protein 6.0 L (6.3-8.2) g/dL 10/13/20 10/13/20 Range/Units 06:07 11:44 APTT (22.0-30.0) sec Carbon Dioxide (22-30) mmol/L Creatinine (0.52-1.04) mg/dL POC Glucose (mg/dL) 106 H 106 H (75-99) mg/dL Alkaline Phosphatase (38-126) U/L Total Protein (6.3-8.2) g/dL Assessment and Plan Plan: 1 acute exacerbation of chronic COPD. The patient is known to have moderate to severe COPD with an FEV1 of 47% of predicted. She had a recent hospitalization back in August 2020 for the same and she is coming in with similar symptoms of worsening shortness of breath. The patient is clinically improving for now. 2 severe COPD with an FEV1 of 47% of predicted maintained on a combination of Perforomist Pulmicort and Incruse on outpatient basis in addition to albuterol nebulized treatment. She is actually dependent 3 coronary artery disease 4 history of CVA with some residual right-sided weakness 5 hyperlipidemia 6 hypertension 7 obstructive sleep apnea with an AHI of 21 and the patient will maintain on BiPAP at a pressure of 16/10 cm of water 8 remote history of tuberculosis 9 sleeve gastrectomy with subsequent weight loss, surgery was done in 2018 10 hiatal hernia 11 thoracic aortic aneurysm post endovascular stent grafting Plan Clinically improving. Continue DuoNeb. Continue IV Solu-Medrol. We'll continue to follow.
[2020-10-13 16:47] LABS: Glucose,Whole Blood 131 mg/dL (75-99)
[2020-10-13 20:32] LABS: Glucose,Whole Blood 133 mg/dL (75-99)
[2020-10-14 06:08] VITALS: RESP 20
[2020-10-14 06:18] LABS: Glucose,Whole Blood 115 mg/dL (75-99)
[2020-10-14] MEDS: INSULIN ASPART (NovoLOG) 100 UNIT/ML VIAL SQ SCH ×3 (06:26→18:30)
[2020-10-14] MEDS: methylPREDNISolone SOD SUCCI 125 MG/2 ML VIAL IV SCH ×2 (06:28→12:03)
[2020-10-14] MEDS: CITALOPRAM HYDROBROMIDE 20 MG TAB PO SCH (08:35)
[2020-10-14] MEDS: cloNIDine HCL 0.1 MG TAB PO SCH (08:35)
[2020-10-14] MEDS: HEPARIN SODIUM,PORCINE 5,000 UNIT/ML 1 ML VIAL SQ SCH ×2 (08:35→18:28)
[2020-10-14] MEDS: METOPROLOL TARTRATE 25 MG TAB PO SCH (08:35)
[2020-10-14] MEDS: amLODIPine 10 MG TAB PO SCH (08:36)
[2020-10-14] MEDS: CEFDINIR 300 MG CAP PO SCH (08:36)
[2020-10-14] MEDS: ATORVASTATIN 20 MG TAB PO SCH (08:36)
[2020-10-14] MEDS: BUDESONIDE 0.5 MG/2 ML NEBU INHALATION SCH (08:47)
[2020-10-14] MEDS: IPRATROPIUM-ALBUTEROL 3 ML NEB INHALATION PRN ×3 (08:47→16:41)
[2020-10-14] MEDS: FORMOTEROL FUMARATE 20 MCG/2 ML NEBU INHALATION SCH (08:47)
[2020-10-14 09:23] LABS: African American GFR (CKD) >90 (>60 ml/min/1.73 sqM); Anion Gap 8 mmol/L; Blood Urea Nitrogen 24 mg/dL (7-17); Calcium 9.4 mg/dL (8.4-10.2); Carbon Dioxide 24 mmol/L (22-30); Chloride 104 mmol/L (98-107); Glucose 191 mg/dL (74-99); Non-African American GFR(CKD) >90 (>60 ml/min/1.73 sqM); Potassium 4.1 mmol/L (3.5-5.1); Sodium 136 mmol/L (137-145)
[2020-10-14 09:52] LABS: Basophils % (A) 0 %; Eosinophils % (A) 0 %; HCT 41.7 % (34.0-46.0); HGB 13.2 gm/dL (11.4-16.0); Lymphocytes # (A) 0.5 k/uL (1.0-4.8); Lymphocytes % (A) 4 %; MCH 31.3 pg (25.0-35.0); MCHC 31.7 g/dL (31.0-37.0); MCV 98.9 fL (80.0-100.0); Mean Platelet Volume 6.9; Monocytes # (A) 0.2 k/uL (0-1.0); Monocytes % (A) 1 %; Neutrophils # (A) 10.4 k/uL (1.3-7.7); Neutrophils % (A) 94 %; Platelet Count 229 k/uL (150-450); RBC 4.21 m/uL (3.80-5.40); RDW 13.4 % (11.5-15.5)
[2020-10-14 11:39] LABS: Glucose,Whole Blood 109 mg/dL (75-99)
[2020-10-14 12:04] VITALS: BP 140/68; TEMP 96.2
--- NOTE | 2020-10-14 12:58 | P.PN ---
Subjective Progress Note Date: 10/14/20 70-year-old female patient with known history of COPD who is presenting today with worsening shortness of breath. The patient has moderately severe COPD and previous spirometry from 2079 showed an FEV1 of 0.9 L which is in order of 46% of predicted. She has been having difficulty breathing for almost a month. She was in the hospital on 09/14/2020 and at that time the patient was seen by Dr. Campos and the patient was diagnosed having an acute COPD exacerbation and she was treated accordingly and she was discharged home. At the time of discharge, the patient was given a prednisone burst taper. The patient was asked to continue Incruse and Ventolin rescue inhaler on an as-needed basis. She was also given a course of doxycycline. In the hospital, the patient received IV Solu-Medrol. The patient is coming in for a similar presentation. Denies having any cough or sputum production. No swelling in lower extremities. No angina or palpitation. Note that the patient has been treated with a combination of Perforomist and Pulmicort nebulized treatments in addition to Incruse on outpatient basis and she uses Ventolin rescue inhaler when necessary. In the ED, the patient otherwise account of 6.3 and the patient also had hemoglobin of 13.1 and normal coagulation profile, and the renal function was stable with a creatinine of 0.5, normal LFTs, lactic acid level was at 1.7, proBNP level was 252 and the troponin was negative at less than 0.012. . The Covid 19 screen was negative. Chest x-ray showed no acute process. The patient has an endovascular stent throughout her aorta. This includes the ascending and descending aorta including the arch. Note that the patient also has multiple comorbidities including COPD, CAD with previous coronary stenting, history of aortic aneurysm with endovascular stent grafting, history of CVA with some mild right-sided hemiparesis, hyperlipidemia, hypertension, obstructive sleep apnea, history of morbid obesity post-sleeve gastrectomy and history of depression. On today's evaluation of 10/13/2020, the patient is feeling less short of [place] th. She is improving. She is on bronchodilators. She is also on IV Solu- Medrol. Clinically she is improving. I saw her in consultation yesterday. She was an acute COPD exacerbation. medication adjustments were done. No chest pain. No nausea. No vomiting. No diarrhea. No headaches. No altered mentation. 10/14/2020 the patient is feeling better. She was already feeling better yesterday. She is recovering from acute COPD exacerbation. No chest pain. No angina. No palpitation. She remains on IV Solu-Medrol. She is back to her baseline for now. No other significant events overnight. Objective - Vital Signs Vital signs: Vital Signs Temp 96.2 F L 10/14/20 12:02 Pulse 52 L 10/14/20 12:05 Resp 20 10/14/20 12:04 BP 140/68 10/14/20 12:02 Pulse Ox 96 10/14/20 12:02 Intake & Output 10/13/20 10/14/20 10/14/20 18:59 06:59 18:59 Intake Total 480 660 Balance 480 660 Weight 70.3 kg Intake: Oral 480 660 Other: Voiding Method Toilet Toilet # Voids 2 2 1 - Exam Gen. appearance, comfortable likely distress. Head exam was generally normal. There was no scleral icterus or corneal arcus. Mucous membranes were moist. Neck was supple and without jugular venous distension, thyromegaly, or carotid bruits. Carotids were easily palpable bilaterally. There was no adenopathy. Lungs are diminished and the patient is prolongation of exhalation phase of breathing overall air entry and elevation is improved considerably this patient. She continues to have diminished breath sounds bilaterally. Cardiac exam revealed the PMI to be normally situated and sized. The rhythm was regular and no extrasystoles were noted during several minutes of auscultation. The first and second heart sounds were normal and physiologic splitting of the second heart sound was noted. There were no murmurs, rubs, clicks, or gallops. Abdominal exam revealed normal bowel sounds. The abdomen was soft, non-tender, and without masses, organomegaly, or appreciable enlargement of the abdominal aorta. Examination of the extremities revealed easily palpable radial, femoral and pedal pulses. There was no cyanosis, clubbing or edema. Examination of the skin revealed no evidence of significant rashes, suspicious appearing nevi or other concerning lesions. Neurologically, the patient is awake and alert and the patient does not have any focal neurological deficit. Cranial nerves are essentially intact. - Labs CBC & Chem 7: 10/14/20 08:11 10/14/20 08:11 Labs: Abnormal Lab Results - Last 24 Hours (Table) 10/13/20 10/13/20 10/14/20 Range/Units 16:46 20:31 06:17 WBC (3.8-10.6) k/uL Neutrophils # (1.3-7.7) k/uL Lymphocytes # (1.0-4.8) k/uL Sodium (137-145) mmol/L BUN (7-17) mg/dL Glucose (74-99) mg/dL POC Glucose (mg/dL) 131 H 133 H 115 H (75-99) mg/dL 10/14/20 10/14/20 10/14/20 Range/Units 08:11 08:11 11:38 WBC 11.0 H (3.8-10.6) k/uL Neutrophils # 10.4 H (1.3-7.7) k/uL Lymphocytes # 0.5 L (1.0-4.8) k/uL Sodium 136 L (137-145) mmol/L BUN 24 H (7-17) mg/dL Glucose 191 H (74-99) mg/dL POC Glucose (mg/dL) 109 H (75-99) mg/dL Microbiology - Last 24 Hours (Table) 10/12/20 13:30 Blood Culture - Preliminary Blood No Growth after 24 hours 10/12/20 13:48 Blood Culture - Preliminary Blood No Growth after 24 hours Assessment and Plan Plan: 1 acute exacerbation of chronic COPD. The patient is known to have moderate to severe COPD with an FEV1 of 47% of predicted. She had a recent hospitalization back in August 2020 for the same and she is coming in with similar symptoms of worsening shortness of breath. The patient is clinically improving for now. 2 severe COPD with an FEV1 of 47% of predicted maintained on a combination of Perforomist Pulmicort and Incruse on outpatient basis in addition to albuterol nebulized treatment. She is actually dependent 3 coronary artery disease 4 history of CVA with some residual right-sided weakness 5 hyperlipidemia 6 hypertension 7 obstructive sleep apnea with an AHI of 21 and the patient will maintain on BiPAP at a pressure of 16/10 cm of water 8 remote history of tuberculosis 9 sleeve gastrectomy with subsequent weight loss, surgery was done in 2018 10 hiatal hernia 11 thoracic aortic aneurysm post endovascular stent grafting Plan Clinically improving. Continue DuoNeb. After IV Solu-Medrol and put the patient prednisone burst taper. The patient can go home and she has a combination of Perforomist and Pulmicort and Incruse. She can be discharged home today on a course of Omnicef to complete a total of 7 day course 300 mg by mouth twice a day. I'll be seeing Mirta my office in 3 weeks time. Will recheck her pulmonary function test and will make adjustments on her inhalers accordingly.
[2020-10-14] MEDS ORDERED: predniSONE 50 MG TAB PO STA (15:15)
[2020-10-14 16:32] LABS: Glucose,Whole Blood 116 mg/dL (75-99)
[2020-10-14 17:31] VITALS: PULSE 56
== END 2020-10-14 18:35 | disposition home or self-care (01) | DRG 192 ==
LOC: EC 10:43 → 3SCARD 11:21
PROVIDERS: ADMIT Internal Medicine; ATTEND Internal Medicine
DX: J44.1 Chronic obstructive pulmonary disease with (acute) exacerbation (principal); Z79.51 Long term (current) use of inhaled steroids; I25.10 Atherosclerotic heart disease of native coronary artery without angina pectoris; E78.5 Hyperlipidemia, unspecified; I10 Essential (primary) hypertension; I25.2 Old myocardial infarction; Z20.822 Contact with and (suspected) exposure to COVID-19; Z86.11 Personal history of tuberculosis; Z95.5 Presence of coronary angioplasty implant and graft; Z98.84 Bariatric surgery status; F32.9 Major depressive disorder, single episode, unspecified; Z87.891 Personal history of nicotine dependence; G47.33 Obstructive sleep apnea (adult) (pediatric); Z85.828 Personal history of other malignant neoplasm of skin; Z86.79 Personal history of other diseases of the circulatory system; Z82.5 Family history of asthma and other chronic lower respiratory diseases; Z82.49 Family history of ischemic heart disease and other diseases of the circulatory system; Z99.81 Dependence on supplemental oxygen; K44.9 Diaphragmatic hernia without obstruction or gangrene; M19.90 Unspecified osteoarthritis, unspecified site; I69.398 Other sequelae of cerebral infarction
CPT/HCPCS: 71046; 80048; 80053; 83605; 83735; 83880; 84484; 85025; 85610; 85730; 87040; 87635; 93005; 94640; 94760; 99291

== ENCOUNTER 2020-12-03 22:51 | Inpatient (IN) | payer MEDICARE ==
[2020-12-03] MEDS ORDERED: ALBUTEROL NEBULIZED 2.5 MG/3 ML INHALATION STA (23:13)
[2020-12-03 23:38] LABS: Basophils # (A) 0.1 k/uL (0-0.2); Basophils % (A) 1 %; Eosinophils # (A) 0.8 k/uL (0-0.7); Eosinophils % (A) 11 %; HCT 42.1 % (34.0-46.0); HGB 13.6 gm/dL (11.4-16.0); Lymphocytes # (A) 1.7 k/uL (1.0-4.8); Lymphocytes % (A) 23 %; MCHC 32.3 g/dL (31.0-37.0); MCV 95.9 fL (80.0-100.0); Mean Platelet Volume 6.6; Monocytes # (A) 0.4 k/uL (0-1.0); Monocytes % (A) 6 %; Neutrophils # (A) 4.2 k/uL (1.3-7.7); Neutrophils % (A) 57 %; Platelet Count 196 k/uL (150-450); RBC 4.39 m/uL (3.80-5.40); RDW 13.5 % (11.5-15.5); WBC 7.4 k/uL (3.8-10.6)
[2020-12-04 00:04] LABS: INR 0.9 (<1.2); Prothrombin Time 9.7 sec (9.0-12.0)
[2020-12-04 00:05] LABS: ALT 10 U/L (4-34); AST 20 U/L (14-36); African American GFR (CKD) >90 (>60 ml/min/1.73 sqM); Alkaline Phosphatase 35 U/L (38-126); Anion Gap 8 mmol/L; Blood Urea Nitrogen 10 mg/dL (7-17); Calcium 9.5 mg/dL (8.4-10.2); Carbon Dioxide 29 mmol/L (22-30); Chloride 105 mmol/L (98-107); Glucose 101 mg/dL (74-99); Magnesium 2.2 mg/dL (1.6-2.3); Non-African American GFR(CKD) >90 (>60 ml/min/1.73 sqM); Sodium 142 mmol/L (137-145); Total Bilirubin 0.5 mg/dL (0.2-1.3); Total Protein 6.4 g/dL (6.3-8.2)
--- NOTE | 2020-12-04 00:15 | XR ---
EXAMINATION TYPE: XR chest 1V portable DATE OF EXAM: 12/04/2020 COMPARISON: 10/12/2020 HISTORY: Short of breath TECHNIQUE: FINDINGS: Heart size is normal. There is stent in the descending thoracic aorta. Lungs are clear of i nfiltrate. There is no heart failure. There are no hilar masses. There are chest leads. There is mild flattening of the diaphragm. IMPRESSION: There is probably COPD. No acute lung disease. No change.
[2020-12-04 00:19] LABS: D-Dimer 4.48 mg/L FEU (<0.60); Partial Thromboplastin Time 20.9 sec (22.0-30.0)
[2020-12-04 00:31] LABS: Potassium 3.2 mmol/L (3.5-5.1)
[2020-12-04 02:10] LABS: VBG PH 7.39 (7.31-7.41)
[2020-12-04] MEDS ORDERED: POTASSIUM CHLORIDE ER 20 MEQ TAB.ER PO STA (02:14)
--- NOTE | 2020-12-04 02:15 | CT ---
EXAM: CT Angiography Chest With Intravenous Contrast CLINICAL HISTORY: ITS.REASON CT Reason: possible PE TECHNIQUE: Axial computed tomographic angiography images of the chest with intravenous contrast. CTDI is 11.77 mGy and DLP is 329.1 mGy-cm. This CT exam was performed using one or more of the following dose reduction techniques: automated exposure control, adjustment of the mA and/or kV according to patient size, and/or use of iterative reconstruction technique. MIP reconstructed images were created and reviewed. COMPARISON: CT chest dated 05/03/2016 FINDINGS: Pulmonary arteries: No pulmonary embolus. Aorta: Evidence of a vascular stent involving the descending thoracic aorta. No dissection. Lungs: Centrilobular emphysema. Minimal diffuse bronchial wall thickening which may represent bronchitis. No mass. Pleural space: Unremarkable. No significant effusion. No pneumothorax. Heart: Unremarkable. No cardiomegaly. No significant pericardial effusion. No evidence of RV dysfunction. Mediastinum: Tiny hiatal hernia. Bones/joints: No acute fracture. No dislocation. Soft tissues: Unremarkable. Lymph nodes: Unremarkable. No enlarged lymph nodes. Stomach and bowel: Colonic diverticulosis. Postsurgical changes noted within the stomach at the GE junction. IMPRESSION: 1. No pulmonary embolus. 2. Centrilobular emphysema. 3. Minimal diffuse bronchial wall thickening which may represent bronchitis.
--- NOTE | 2020-12-04 02:43 | ED ---
SOB HPI - General Chief Complaint: Shortness of Breath Stated Complaint: ALBER Time Seen by Provider: 12/03/20 22:54 Source: patient, EMS Mode of arrival: EMS Limitations: physical limitation - History of Present Illness Initial Comments: Patient is 70-year-old woman presenting with increasing shortness of breath. Patient is administered albuterol, given Solu-Medrol by EMS. They had also placed her on CPAP. Patient had not noted fever or chills. No sputum production. No chest pain. History is otherwise limited by marked dyspnea MD Complaint: shortness of breath, cough -: hour(s) Severity scale (1-10): 0 Consistency: constant Improves With: oxygen, bronchodilators Worsens With: nothing Known History Of: COPD Associated Symptoms: denies other symptoms - Related Data Home Medications Medication Instructions Recorded Confirmed Citalopram Hydrobromide [CeleXA] 20 mg PO DAILY 05/01/16 12/04/20 Umeclidinium [place] [Incruse 1 puff INHALATION RT-DAILY 11/07/17 12/04/20 Ellipta] Atorvastatin [Lipitor] 20 mg PO DAILY 03/09/19 12/04/20 amLODIPine BESYLATE 10 mg PO DAILY 03/09/19 12/04/20 cloNIDine HCL [Catapres] 0.1 mg PO DAILY 03/09/19 12/04/20 Albuterol Nebulized [Ventolin 2.5 mg INHALATION RT-TID PRN 09/14/20 12/04/20 Nebulized] Budesonide [Pulmicort] 0.5 mg INHALATION RT-DAILY 10/12/20 12/04/20 Formoterol Fumarate [Perforomist] 20 mcg INHALATION RT-DAILY 10/12/20 12/04/20 Metoprolol Tartrate [Lopressor] 25 mg PO DAILY 10/12/20 12/04/20 Albuterol Sulfate [Proair Hfa] 2 puff INHALATION RT-QID PRN 12/04/20 12/04/20 Furosemide [Lasix] 40 mg PO DAILY 12/04/20 12/04/20 Hydrochlorothiazide 12.5 mg PO DAILY 12/04/20 12/04/20 [hydroCHLOROthiazide] Potassium Chloride ER [K-Dur 20] 20 meq PO DAILY 12/04/20 12/04/20 Allergies Allergy/AdvReac Type Severity Reaction Status Date / Time levofloxacin [From Levaquin] Allergy Rash/Hives Verified 12/04/20 09:48 Penicillins Allergy Rash/Hives Verified 12/04/20 09:48 Sulfa (Sulfonamide Allergy Rash/Hives Verified 12/04/20 09:48 Antibiotics) sulfamethoxazole Allergy Rash/Hives Verified 12/04/20 09:48 [From Bactrim] trimethoprim [From Bactrim] Allergy Rash/Hives Verified 12/04/20 09:48 Review of Systems ROS Statement: Those systems with pertinent positive or pertinent negative responses have been documented in the HPI. ROS Other: All systems not noted in ROS Statement are negative. Limitations: ROS unobtainable due to patients medical condition Constitutional: Denies: fever, chills Respiratory: Reports: cough, dyspnea, wheezes. Denies: hemoptysis Cardiovascular: Denies: chest pain, orthopnea, edema, syncope Gastrointestinal: Denies: abdominal pain, vomiting Musculoskeletal: Denies: back pain Neurological: Denies: headache Past Medical History Past Medical History: Coronary Artery Disease (CAD), Cancer, COPD, CVA/TIA, Hyperlipidemia, Hypertension, Myocardial Infarction ([place]), Sleep Apnea/CPAP/BIPAP Additional Past Medical History / Comment(s): CAD, previous history of coronary stent, thoracic aortic aneurysm with previous endovascular stent grafting, remote history of tuberculosis back in 1985, twice a with an AHI of 21, not utilizing her BiPAP, skin cancer, history of CVA with residual right-sided weakness, obesity with a previous history of sleep gastrectomy, COPD Last Myocardial Infarction Date:: 01/25/2006 History of Any Multi-Drug Resistant Organisms: None Reported Past Surgical History: Bariatric Surgery, Cholecystectomy, Heart Catheterization With Stent, Hernia Repair Additional Past Surgical History / Comment(s): Cyst removed from thyroid, HEART CATH WITH STENT X2, SURGERY FOR Thoracic Aortic Aneurysm, Ventral hernia repair with mesh July 2017. EGD, COLONOSCOPY. sleeve gastrectomy 05/19/18 (Dr. Jose Hamilton) Past Anesthesia/Blood Transfusion Reactions: Postoperative Nausea & Vomiting (PONV) Date of Last Stent Placement:: 2009 Past Psychological History: Depression Smoking Status: Former smoker Past Alcohol Use History: Occasional Past Drug Use History: Marijuana - Past Family History Father Family Medical History: COPD, Myocardial Infarction ([place]) Mother Family Medical History: Hypertension Additional Family Medical History / Comment(s): Pacemaker, heart issues Sister(s) Family Medical History: Cancer General Exam Limitations: no limitations General appearance: alert, in distress Head exam: Present: atraumatic, normocephalic Eye exam: Present: normal appearance. Absent: scleral icterus, conjunctival injection Neck exam: Present: normal inspection, full ROM Respiratory exam: Present: respiratory distress, wheezes, accessory muscle use, decreased breath sounds, prolonged expiratory. Absent: rales, rhonchi, stridor, chest wall tenderness Cardiovascular Exam: Present: regular rate, normal rhythm, normal heart sounds. Absent: systolic murmur, diastolic murmur, rubs, gallop GI/Abdominal exam: Present: soft. Absent: distended, tenderness, guarding, rebound, rigid, mass Extremities exam: Present: normal inspection, normal capillary refill. Absent: pedal edema, calf tenderness Back exam: Present: normal inspection. Absent: CVA tenderness (R), CVA tenderness (L) Neurological exam: Present: alert Skin exam: Present: warm, dry, intact, normal color. Absent: rash Course Vital Signs 12/03/20 12/03/20 12/03/20 22:53 23:35 23:48 Temperature 97.9 F Pulse Rate 90 68 70 Respiratory 30 H Rate Blood Pressure 159/105 O2 Sat by Pulse 96 Oximetry 12/04/20 12/04/20 01:57 03:26 Temperature Pulse Rate 68 90 Respiratory 19 17 Rate Blood Pressure 157/88 O2 Sat by Pulse 98 97 Oximetry Medical Decision Making - Lab Data Result diagrams: 12/03/20 23:24 12/03/20 23:24 Lab Results 12/03/20 12/03/20 12/03/20 Range/Units 23:24 23:24 23:24 WBC 7.4 (3.8-10.6) k/uL RBC 4.39 (3.80-5.40) m/uL Hgb 13.6 (11.4-16.0) gm/dL Hct 42.1 (34.0-46.0) % MCV 95.9 (80.0-100.0) fL MCH 31.0 (25.0-35.0) pg MCHC 32.3 (31.0-37.0) g/dL RDW 13.5 (11.5-15.5) % Plt Count 196 (150-450) k/uL MPV 6.6 Neutrophils % 57 % Lymphocytes % 23 % Monocytes % 6 % Eosinophils % 11 % Basophils % 1 % Neutrophils # 4.2 (1.3-7.7) k/uL Lymphocytes # 1.7 (1.0-4.8) k/uL Monocytes # 0.4 (0-1.0) k/uL Eosinophils # 0.8 H (0-0.7) k/uL Basophils # 0.1 (0-0.2) k/uL PT 9.7 (9.0-12.0) sec INR 0.9 (<1.2) APTT 20.9 L (22.0-30.0) sec D-Dimer 4.48 H (<0.60) mg/L FEU VBG pH (7.31-7.41) VBG pCO2 (37-51) mmHg VBG HCO3 (24-28) mmol/L Sodium 142 (137-145) mmol/L Potassium 3.2 L (3.5-5.1) mmol/L Chloride 105 (98-107) mmol/L Carbon Dioxide 29 (22-30) mmol/L Anion Gap 8 mmol/L BUN 10 (7-17) mg/dL Creatinine 0.46 L (0.52-1.04) mg/dL Est GFR (CKD-EPI)AfAm >90 (>60 ml/min/1.73 sqM) Est GFR (CKD-EPI)NonAf >90 (>60 ml/min/1.73 sqM) Glucose 101 H (74-99) mg/dL Plasma Lactic Acid Valerio (0.7-2.0) mmol/L Calcium 9.5 (8.4-10.2) mg/dL Magnesium 2.2 (1.6-2.3) mg/dL Total Bilirubin 0.5 (0.2-1.3) mg/dL AST 20 (14-36) U/L ALT 10 (4-34) U/L Alkaline Phosphatase 35 L (38-126) U/L Troponin I (0.000-0.034) ng/mL NT-Pro-B Natriuret Pep pg/mL Total Protein 6.4 (6.3-8.2) g/dL Albumin 4.0 (3.5-5.0) g/dL Coronavirus (PCR) (Not Detectd) 12/03/20 12/03/20 12/03/20 Range/Units 23:24 23:24 23:24 WBC (3.8-10.6) k/uL RBC (3.80-5.40) m/uL Hgb (11.4-16.0) gm/dL Hct (34.0-46.0) % MCV (80.0-100.0) fL MCH (25.0-35.0) pg MCHC (31.0-37.0) g/dL RDW (11.5-15.5) % Plt Count (150-450) k/uL MPV Neutrophils % % Lymphocytes % % Monocytes % % Eosinophils % % Basophils % % Neutrophils # (1.3-7.7) k/uL Lymphocytes # (1.0-4.8) k/uL Monocytes # (0-1.0) k/uL Eosinophils # (0-0.7) k/uL Basophils # (0-0.2) k/uL PT (9.0-12.0) sec INR (<1.2) APTT (22.0-30.0) sec D-Dimer (<0.60) mg/L FEU VBG pH (7.31-7.41) VBG pCO2 (37-51) mmHg VBG HCO3 (24-28) mmol/L Sodium (137-145) mmol/L Potassium (3.5-5.1) mmol/L Chloride (98-107) mmol/L Carbon Dioxide (22-30) mmol/L Anion Gap mmol/L BUN (7-17) mg/dL Creatinine (0.52-1.04) mg/dL Est GFR (CKD-EPI)AfAm (>60 ml/min/1.73 sqM) Est GFR (CKD-EPI)NonAf (>60 ml/min/1.73 sqM) Glucose (74-99) mg/dL Plasma Lactic Acid Valerio 1.2 (0.7-2.0) mmol/L Calcium (8.4-10.2) mg/dL Magnesium (1.6-2.3) mg/dL Total Bilirubin (0.2-1.3) mg/dL AST (14-36) U/L ALT (4-34) U/L Alkaline Phosphatase (38-126) U/L Troponin I <0.012 (0.000-0.034) ng/mL NT-Pro-B Natriuret Pep 276 pg/mL Total Protein (6.3-8.2) g/dL Albumin (3.5-5.0) g/dL Coronavirus (PCR) (Not Detectd) 12/04/20 12/04/20 Range/Units 01:56 01:56 WBC (3.8-10.6) k/uL RBC (3.80-5.40) m/uL Hgb (11.4-16.0) gm/dL Hct (34.0-46.0) % MCV (80.0-100.0) fL MCH (25.0-35.0) pg MCHC (31.0-37.0) g/dL RDW (11.5-15.5) % Plt Count (150-450) k/uL MPV Neutrophils % % Lymphocytes % % Monocytes % % Eosinophils % % Basophils % % Neutrophils # (1.3-7.7) k/uL Lymphocytes # (1.0-4.8) k/uL Monocytes # (0-1.0) k/uL Eosinophils # (0-0.7) k/uL Basophils # (0-0.2) k/uL PT (9.0-12.0) sec INR (<1.2) APTT (22.0-30.0) sec D-Dimer (<0.60) mg/L FEU VBG pH 7.39 (7.31-7.41) VBG pCO2 42 (37-51) mmHg VBG HCO3 25 (24-28) mmol/L Sodium (137-145) mmol/L Potassium (3.5-5.1) mmol/L Chloride (98-107) mmol/L Carbon Dioxide (22-30) mmol/L Anion Gap mmol/L BUN (7-17) mg/dL Creatinine (0.52-1.04) mg/dL Est GFR (CKD-EPI)AfAm (>60 ml/min/1.73 sqM) Est GFR (CKD-EPI)NonAf (>60 ml/min/1.73 sqM) Glucose (74-99) mg/dL Plasma Lactic Acid Valerio (0.7-2.0) mmol/L Calcium (8.4-10.2) mg/dL Magnesium (1.6-2.3) mg/dL Total Bilirubin (0.2-1.3) mg/dL AST (14-36) U/L ALT (4-34) U/L Alkaline Phosphatase (38-126) U/L Troponin I (0.000-0.034) ng/mL NT-Pro-B Natriuret Pep pg/mL Total Protein (6.3-8.2) g/dL Albumin (3.5-5.0) g/dL Coronavirus (PCR) Not Detected (Not Detectd) Disposition Clinical Impression: Acute exacerbation of chronic obstructive pulmonary disease Disposition: ADMITTED IP TO THIS HOSP Condition: Fair Is patient prescribed a controlled substance at d/c from ED?: No
[2020-12-04] MEDS: SODIUM CHLORIDE 0.9% 1,000 ML IV SCH ×3 (03:25→22:47)
[2020-12-04] MEDS: ALBUTEROL NEBULIZED 2.5 MG/3 ML INHALATION PRN ×4 (04:41→23:50)
[2020-12-04] MEDS: methylPREDNISolone SOD SUCCI 125 MG/2 ML VIAL IV SCH ×4 (05:22→23:31)
[2020-12-04] MEDS ORDERED: BUDESONIDE 0.5 MG/2 ML NEBU INHALATION SCH (08:00)
[2020-12-04] MEDS ORDERED: FORMOTEROL FUMARATE 20 MCG/2 ML NEBU INHALATION SCH ×2 (08:00)
[2020-12-04] MEDS ORDERED: IPRATROPIUM-ALBUTEROL 3 ML NEB INHALATION SCH (08:00)
[2020-12-04] MEDS: IPRATROPIUM 0.5 MG/2.5 ML NEBU INHALATION SCH ×6 (08:16→23:50)
[2020-12-04] MEDS: amLODIPine 10 MG TAB PO SCH (08:56)
[2020-12-04] MEDS: ATORVASTATIN 20 MG TAB PO SCH (08:56)
[2020-12-04] MEDS: CITALOPRAM HYDROBROMIDE 20 MG TAB PO SCH (08:56)
[2020-12-04] MEDS: METOPROLOL TARTRATE 25 MG TAB PO SCH (08:56)
[2020-12-04] MEDS: cloNIDine HCL 0.1 MG TAB PO SCH (08:57)
[2020-12-04] MEDS ORDERED: HEPARIN SODIUM,PORCINE/PF 5,000 UNIT/0.5 ML SYRINGE SQ SCH (09:00)
--- NOTE | 2020-12-04 14:31 | P.CNPUL ---
History of Present Illness Consult date: 12/04/20 Requesting physician: Murali Masters Reason for consult: COPD Chief complaint: Shortness of breath History of present illness: This is a very pleasant 70-year-old female patient with a known history of coronary artery disease with previous stent placement, aortic aneurysm with endovascular stent grafting, CVA with some mild right-sided hemiparesis, hyperlipidemia, hypertension, obstructive sleep apnea, intolerant to CPAP, previous gastric sleeve placement, depression. She also has a history of tracheobronchomalacia, moderate to severe COPD with an FEV1 1 value of 0.9 L which is 46% of predicted. She follows with Dr. Holland in our office for the same. She is maintained on Pulmicort, Perforomist, Incruse. She presented here yesterday with complaints of increasing shortness of breath. She states she had been on steroids up until about 1 week ago on doing well. After the taper she isn't recurrent symptoms of worsening shortness of breath, dry nonproductive cough. She is admitted for COPD exacerbation. Chest x-ray revealed evidence of COPD. No acute pulmonary process. CT angiogram ruled out pulmonary embolus. There is some entry lobular emphysema. Some minimal diffuse bronchial wall thickening suspect bronchitis. She is seen today in follow-up on the regular medical floor. She is currently sitting up in bed. Awake and alert in no acute distress. Breathing easier today compared to yesterday. No worsening shortness of breath, cough or congestion. No fever, chills or night sweats. White count 7.4. Hemoglobin 13.6. D-dimer 4.48. Sodium 142. Potassium 3.2. Creatinine 0.46. BNP 276. Troponin negative 1. Rodriguez virus not detected. She's been initiated on Pulmicort and Perforomist inhalations, albuterol, IV Solu-Medrol. Lovenox for DVT prophylaxis. Review of Systems REVIEW OF SYSTEMS: CONSTITUTIONAL: Denies any recent significant weight loss or weight gain. EYES: Denies change in vision. EARS, NOSE, MOUTH, THROAT: Denies headaches, denies sore throat. CARDIOVASCULAR: Denies chest pain, palpitations or syncopal episodes. RESPIRATORY: Positive for shortness of breath, cough, congestion no hemoptysis. GASTROINTESTINAL: Denies change in appetite, denies abdominal pain GENITOURINARY: Denies hematuria, denies infections. MUSKULOSKELETAL: Denies pain, denies swelling. INTEGUMENTARY: Denies rash, denies eczema. NEUROLOGICAL: Denies recent memory loss, no recent seizure activity. PSYCHIATRIC: Denies anxiety, denies depression. HEMATOLOGIC/LYMPHATIC: Denies anemia, denies enlarged lymph nodes. Past Medical History Past Medical History: Coronary Artery Disease (CAD), Cancer, COPD, CVA/TIA, Hyperlipidemia, Hypertension, Myocardial Infarction ([place]), Sleep Apnea/CPAP/BIPAP Additional Past Medical History / Comment(s): CAD, previous history of coronary stent, thoracic aortic aneurysm with previous endovascular stent grafting, remote history of tuberculosis back in 1985, twice a with an AHI of 21, not utilizing her BiPAP, skin cancer, history of CVA in 2013 with residual right- sided weakness, obesity with a previous history of sleep gastrectomy, COPD Last Myocardial Infarction Date:: 01/25/2006 History of Any Multi-Drug Resistant Organisms: None Reported Past Surgical History: Bariatric Surgery, Cholecystectomy, Heart Catheterization With Stent, Hernia Repair Additional Past Surgical History / Comment(s): Cyst removed from thyroid, HEART CATH WITH STENT X2, SURGERY FOR Thoracic Aortic Aneurysm, Ventral hernia repair with mesh July 2017. EGD, COLONOSCOPY. sleeve gastrectomy 05/19/18 (Dr. Jose Hamilton) Past Anesthesia/Blood Transfusion Reactions: Postoperative Nausea & Vomiting (PONV) Date of Last Stent Placement:: 2009 Past Psychological History: Depression Smoking Status: Former smoker Past Alcohol Use History: Occasional Additional Past Alcohol Use History / Comment(s): STARTED SMOKING AT AGE 15, QUIT IN 2013 SMOKED 1PPD. Past Drug Use History: Marijuana Additional Drug Use History / Comment(s): PAST HISTORY - Past Family History Father Family Medical History: COPD, Myocardial Infarction ([place]) Mother Family Medical History: Hypertension Additional Family Medical History / Comment(s): Pacemaker, heart issues Sister(s) Family Medical History: Cancer Medications and Allergies Home Medications Medication Instructions Recorded Confirmed Type Citalopram Hydrobromide [CeleXA] 20 mg PO DAILY 05/01/16 12/04/20 History Umeclidinium [place] [Incruse 1 puff INHALATION RT-DAILY 11/07/17 12/04/20 History Ellipta] Atorvastatin [Lipitor] 20 mg PO DAILY 03/09/19 12/04/20 History amLODIPine BESYLATE 10 mg PO DAILY 03/09/19 12/04/20 History cloNIDine HCL [Catapres] 0.1 mg PO DAILY 03/09/19 12/04/20 History Albuterol Nebulized [Ventolin 2.5 mg INHALATION RT-TID PRN 09/14/20 12/04/20 History Nebulized] Budesonide [Pulmicort] 0.5 mg INHALATION RT-DAILY 10/12/20 12/04/20 History Formoterol Fumarate [Perforomist] 20 mcg INHALATION RT-DAILY 10/12/20 12/04/20 History Metoprolol Tartrate [Lopressor] 25 mg PO DAILY 10/12/20 12/04/20 History Albuterol Sulfate [Proair Hfa] 2 puff INHALATION RT-QID PRN 12/04/20 12/04/20 History Furosemide [Lasix] 40 mg PO DAILY 12/04/20 12/04/20 History Hydrochlorothiazide 12.5 mg PO DAILY 12/04/20 12/04/20 History [hydroCHLOROthiazide] Potassium Chloride ER [K-Dur 20] 20 meq PO DAILY 12/04/20 12/04/20 History Allergies Allergy/AdvReac Type Severity Reaction Status Date / Time levofloxacin [From Levaquin] Allergy Rash/Hives Verified 12/04/20 09:48 Penicillins Allergy Rash/Hives Verified 12/04/20 09:48 Sulfa (Sulfonamide Allergy Rash/Hives Verified 12/04/20 09:48 Antibiotics) sulfamethoxazole Allergy Rash/Hives Verified 12/04/20 09:48 [From Bactrim] trimethoprim [From Bactrim] Allergy Rash/Hives Verified 12/04/20 09:48 Physical Exam Vitals: Vital Signs Temp Pulse Pulse Pulse Resp BP BP 12/04/20 12:38 62 12/04/20 12:27 56 L 12/04/20 08:52 76 12/04/20 08:34 76 12/04/20 08:16 78 12/04/20 08:00 98.1 F 61 16 149/82 12/04/20 04:37 72 12/04/20 03:57 98 F 70 20 147/68 12/04/20 03:26 90 17 12/04/20 01:57 68 19 157/88 12/03/20 23:48 70 12/03/20 23:35 68 12/03/20 22:53 97.9 F 90 30 H 159/105 Pulse Ox 12/04/20 12:38 12/04/20 12:27 12/04/20 08:52 12/04/20 08:34 12/04/20 08:16 12/04/20 08:00 99 12/04/20 04:37 12/04/20 03:57 95 12/04/20 03:26 97 12/04/20 01:57 98 12/03/20 23:48 12/03/20 23:35 12/03/20 22:53 96 Intake and Output 12/03/20 12/04/20 12/04/20 22:59 06:59 14:59 Other: Voiding Method Toilet Toilet # Voids 1 Weight 68.039 kg 68.039 kg GENERAL EXAM: Alert, pleasant 70-year-old female patient, on 3 L nasal cannula, comfortable in no apparent distress. HEAD: Normocephalic. EYES: Normal reaction of pupils, equal size. NOSE: Clear with pink turbinates. THROAT: No erythema or exudates. NECK: No masses, no JVD. CHEST: No chest wall deformity. LUNGS: Equal air entry with faint end expiratory wheeze, diminished. CVS: S1 and S2 normal with no audible murmur, regular rhythm. ABDOMEN: No hepatosplenomegaly, normal bowel sounds, no guarding or rigidity. SPINE: No scoliosis or deformity SKIN: No rashes CENTRAL NERVOUS SYSTEM: No focal deficits, tone is normal in all 4 extremities. EXTREMITIES: There is no peripheral edema. No clubbing, no cyanosis. Peripheral pulses are intact. Results - Laboratory Findings CBC and BMP: 12/03/20 23:24 12/03/20 23:24 PT/INR, D-dimer PT 9.7 sec (9.0-12.0) 12/03/20 23:24 INR 0.9 (<1.2) 12/03/20 23:24 D-Dimer 4.48 mg/L FEU (<0.60) H 12/03/20 23:24 Abnormal lab findings: Abnormal Labs 12/03/20 12/03/20 12/03/20 23:24 23:24 23:24 Eosinophils # 0.8 H APTT 20.9 L D-Dimer 4.48 H Potassium 3.2 L Creatinine 0.46 L Glucose 101 H Alkaline Phosphatase 35 L - Diagnostic Findings Chest x-ray: image reviewed CT scan - chest: image reviewed Assessment and Plan Assessment: 1 Acute exacerbation of chronic obstructive pulmonary disease. 2 Severe chronic obstructive pulmonary disease FEV1 value of 47% of predicted. Maintained on Pulmicort, Perforomist, increase in the outpatient setting. 3 Coronary artery disease with previous stent placement 4 History of CVA with some residual right-sided weakness 5 Hyperlipidemia 6 Hypertension 7 Obstructive sleep apnea with an AHI of 21 maintained on BiPAP at a pressure of 16/10 cm of water 8 History of tuberculosis 9 History of gastric sleeve surgery in 2018 10 History of hiatal hernia 11 History of thoracic aortic aneurysm post-endovascular stent placement Plan: The patient was seen and evaluated by Dr. Cortes Chest x-ray, CAT scans and labs reviewed Continue Pulmicort, Perforomist, albuterol Continue IV Solu-Medrol Titrate the FiO2 as tolerated Possible discharge in the a.m. We will continue to follow and make further recommendations based on her clinical status I, the cosigning physician, performed a history & physical examination of the patient. Lungs sounds faint end expiratory wheeze, diminished. Maintaining good O2 saturations in the 90s on 3 L/m per nasal cannula. I discussed the assessment and plan of care with my nurse practitioner, Gaby Alcazar. I attest to the above consultation as dictated by her. Time with Patient: Greater than 30
--- NOTE | 2020-12-04 14:48 | P.HPIM ---
History of Present Illness H&P Date: 12/04/20 Chief Complaint: Shortness of breath History of presenting complaint: This is a pleasant 70-year-old patient of . 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 Holland. Chronic stable medical conditions include coronary artery disease with stent, some mild right-sided weakness from prior stroke, hypertension, hyperlipidemia, obstructive sleep apnea uses CPAP machine, TB in 1985, hiatal hernia, surgery for thoracic aortic aneurysm, sleep gastrectomy in [address] Hamilton. Patient now presents with 1 week of progressive increasing shortness of breath. Slight cough. Minimal sputum. Significant decrease appetite. No fever no chills. Tired rundown. Review of systems: GEN.: Tired EYES: None HEENT: None NECK: None RESPIRATORY: As above CARDIOVASCULAR: None GASTROINTESTINAL: None GENITOURINARY: None MUSCULOSKELETAL: None LYMPHATICS: None HEMATOLOGICAL: None PSYCHIATRY: None NEUROLOGICAL: None Past medical history to include: Coronary artery disease with stent, COPD, stroke with some mild right-sided weakness, hyperlipidemia, hypertension, obstructive sleep apnea uses CPAP, TB 1985, hiatal hernia, sleep gastrectomy in 2018, surgery for thoracic aortic aneurysm Social history: Started smoking age of 15 stopped in 2011. One pack a day. Alcohol occas ionally. Lives with her grandson. Occasionally uses a cane or a walker. Physical examination: VITAL SIGNS: 97.9, 90, 30, 1 59 x 1 05, 96% on BiPAP-on presentation GENERAL: BMI 26.6, reclining in bed, short of breath EYES: Pupils equal. Conjunctiva normal. HEENT: External appearance of nose and ears normal, oral cavity grossly normal. NECK: JVD not raised; masses not palpable. HEART: First and second heart sounds are normal; no edema. LUNGS:[ Respiratory rate increased, decreased breath sounds prolonged expiration. Not able to speak in full sentences, accessory muscles a working ABDOMEN: Soft, nontender, liver spleen not palpable, no masses palpable. PSYCH: Alert and oriented x3; mood and affect anxious NEUROLOGICAL: Cranial nerves grossly intact; no facial asymmetry, power and sensation grossly intact. LYMPHATICS: No lymph nodes palpable in the axilla and neck INVESTIGATIONS, reviewed in the clinical context: WBC 7.4 hemoglobin 13.6 platelets 196 potassium 3.2 creatinine 0.46 Troponin I less than 0.012, proBNP 276 Coronavirus [PCR]-not detected EKG tracing personally reviewed by me-normal sinus rhythm, nonspecific T-wave changes CT chest for PE protocol: Emphysema. No pulmonary embolism. Chest x-ray film personally reviewed by me-prominent pulmonary artery. Mild aortic calcification. No obvious infiltrate Assessment and plan: -Acute severe COPD exacerbation in an ex-smoker started on bronchodilators, IV and inhaled steroids. Long-acting when necessary can just. Pulmonary consulted -Coronary artery disease with stent continue with Lopressor, Lipitor -Mild right hemiparesis from prior stroke -Hyperlipidemia, continue with Lipitor -Essential hypertension, continue with amlodipine, Lopressor -Obstructive sleep apnea uses CPAP , continue the same -Hiatal hernia -History of sleep gastrectomy -Depression not otherwise specified, continue Celexa -DVT prophylaxis , Subcu Lovenox Care was discussed with the patient. Questions answered. Home medications ordered. Patient will eat 2 nights over stay in the hospital given the severity of the disease Past Medical History Past Medical History: Coronary Artery Disease (CAD), Cancer, COPD, CVA/TIA, Hyperlipidemia, Hypertension, Myocardial Infarction (DC), Sleep Apnea/CPAP/BIPAP Additional Past Medical History / Comment(s): CAD, previous history of coronary stent, thoracic aortic aneurysm with previous endovascular stent grafting, remote history of tuberculosis back in 1985, twice a with an AHI of 21, not utilizing her BiPAP, skin cancer, history of CVA in 2013 with residual right- sided weakness, obesity with a previous history of sleep gastrectomy, COPD Last Myocardial Infarction Date:: 01/25/2006 History of Any Multi-Drug Resistant Organisms: None Reported Past Surgical History: Bariatric Surgery, Cholecystectomy, Heart Catheterization With Stent, Hernia Repair Additional Past Surgical History / Comment(s): Cyst removed from thyroid, HEART CATH WITH STENT X2, SURGERY FOR Thoracic Aortic Aneurysm, Ventral hernia repair with mesh July 2017. EGD, COLONOSCOPY. sleeve gastrectomy 05/19/18 (Dr. Jose Hamilton) Past Anesthesia/Blood Transfusion Reactions: Postoperative Nausea & Vomiting (PONV) Date of Last Stent Placement:: 2009 Past Psychological History: Depression Smoking Status: Former smoker Past Alcohol Use History: Occasional Additional Past Alcohol Use History / Comment(s): STARTED SMOKING AT AGE 15, QUIT IN 2013 SMOKED 1PPD. Past Drug Use History: Marijuana Additional Drug Use History / Comment(s): PAST HISTORY - Past Family History Father Family Medical History: COPD, Myocardial Infarction (DC) Mother Family Medical History: Hypertension Additional Family Medical History / Comment(s): Pacemaker, heart issues Sister(s) Family Medical History: Cancer Medications and Allergies Home Medications Medication Instructions Recorded Confirmed Type Citalopram Hydrobromide [CeleXA] 20 mg PO DAILY 05/01/16 12/04/20 History Umeclidinium [place] [Incruse 1 puff INHALATION RT-DAILY 11/07/17 12/04/20 History Ellipta] Atorvastatin [Lipitor] 20 mg PO DAILY 03/09/19 12/04/20 History amLODIPine BESYLATE 10 mg PO DAILY 03/09/19 12/04/20 History cloNIDine HCL [Catapres] 0.1 mg PO DAILY 03/09/19 12/04/20 History Albuterol Nebulized [Ventolin 2.5 mg INHALATION RT-TID PRN 09/14/20 12/04/20 History Nebulized] Budesonide [Pulmicort] 0.5 mg INHALATION RT-DAILY 10/12/20 12/04/20 History Formoterol Fumarate [Perforomist] 20 mcg INHALATION RT-DAILY 10/12/20 12/04/20 History Metoprolol Tartrate [Lopressor] 25 mg PO DAILY 10/12/20 12/04/20 History Albuterol Sulfate [Proair Hfa] 2 puff INHALATION RT-QID PRN 12/04/20 12/04/20 History Furosemide [Lasix] 40 mg PO DAILY 12/04/20 12/04/20 History Hydrochlorothiazide 12.5 mg PO DAILY 12/04/20 12/04/20 History [hydroCHLOROthiazide] Potassium Chloride ER [K-Dur 20] 20 meq PO DAILY 12/04/20 12/04/20 History Allergies Allergy/AdvReac Type Severity Reaction Status Date / Time levofloxacin [From Levaquin] Allergy Rash/Hives Verified 12/04/20 09:48 Penicillins Allergy Rash/Hives Verified 12/04/20 09:48 Sulfa (Sulfonamide Allergy Rash/Hives Verified 12/04/20 09:48 Antibiotics) sulfamethoxazole Allergy Rash/Hives Verified 12/04/20 09:48 [From Bactrim] trimethoprim [From Bactrim] Allergy Rash/Hives Verified 12/04/20 09:48 Physical Exam Vitals: Vital Signs Temp Pulse Pulse Pulse Resp BP BP 12/04/20 08:52 76 12/04/20 08:34 76 12/04/20 08:16 78 12/04/20 08:00 98.1 F 61 16 149/82 12/04/20 04:37 72 12/04/20 03:57 98 F 70 20 147/68 12/04/20 03:26 90 17 12/04/20 01:57 68 19 157/88 12/03/20 23:48 70 12/03/20 23:35 68 12/03/20 22:53 97.9 F 90 30 H 159/105 Pulse Ox 12/04/20 08:52 12/04/20 08:34 12/04/20 08:16 12/04/20 08:00 99 12/04/20 04:37 12/04/20 03:57 95 12/04/20 03:26 97 12/04/20 01:57 98 12/03/20 23:48 12/03/20 23:35 12/03/20 22:53 96 Intake and Output 12/03/20 12/04/20 12/04/20 22:59 06:59 14:59 Other: Voiding Method Toilet Toilet # Voids 1 Weight 68.039 kg 68.039 kg Results CBC & Chem 7: 12/03/20 23:24 12/03/20 23:24 Labs: Abnormal Lab Results - Last 24 Hours (Table) 12/03/20 12/03/20 12/03/20 Range/Units 23:24 23:24 23:24 Eosinophils # 0.8 H (0-0.7) k/uL APTT 20.9 L (22.0-30.0) sec D-Dimer 4.48 H (<0.60) mg/L FEU Potassium 3.2 L (3.5-5.1) mmol/L Creatinine 0.46 L (0.52-1.04) mg/dL Glucose 101 H (74-99) mg/dL Alkaline Phosphatase 35 L (38-126) U/L Thrombosis Risk Factor Assmnt - Choose All That Apply Each Factor Represents 1 point: Abnormal pulmonary function (COPD), Obesity (BMI >25) Other Risk Factors: Yes Each Risk Factor Represents 2 Points: Age 61-74 years Other congenital or acquired thrombophilia - If yes, enter type in comment: No Thrombosis Risk Factor Assessment Total Risk Factor Score: 4 Thrombosis Risk Factor Assessment Level: Moderate Risk
[2020-12-04] MEDS: CALCIUM CARBONATE 500 MG CHEWABLE PO PRN ×3 (15:21→23:37)
[2020-12-04] MEDS: BUDESONIDE 1 MG/2 ML NEBU INHALATION SCH (20:45)
[2020-12-04] MEDS: FORMOTEROL FUMARATE 20 MCG/2 ML NEBU INHALATION SCH (20:46)
[2020-12-05] MEDS: IPRATROPIUM 0.5 MG/2.5 ML NEBU INHALATION SCH ×5 (03:35→18:53)
[2020-12-05] MEDS: ALBUTEROL NEBULIZED 2.5 MG/3 ML INHALATION PRN (03:35)
[2020-12-05] MEDS: SODIUM CHLORIDE 0.9% 1,000 ML IV SCH ×3 (03:53→20:47)
[2020-12-05] MEDS: methylPREDNISolone SOD SUCCI 125 MG/2 ML VIAL IV SCH ×2 (06:02→11:36)
[2020-12-05] MEDS: BUDESONIDE 1 MG/2 ML NEBU INHALATION SCH ×2 (08:04→18:53)
[2020-12-05] MEDS: FORMOTEROL FUMARATE 20 MCG/2 ML NEBU INHALATION SCH ×2 (08:04→18:53)
[2020-12-05] MEDS: ENOXAPARIN 40 MG/0.4 ML SYRINGE SQ SCH (08:26)
[2020-12-05] MEDS: amLODIPine 10 MG TAB PO SCH (08:26)
[2020-12-05] MEDS: ATORVASTATIN 20 MG TAB PO SCH (08:26)
[2020-12-05] MEDS: cloNIDine HCL 0.1 MG TAB PO SCH (08:26)
[2020-12-05] MEDS: CITALOPRAM HYDROBROMIDE 20 MG TAB PO SCH (08:26)
[2020-12-05] MEDS: METOPROLOL TARTRATE 25 MG TAB PO SCH (08:26)
--- NOTE | 2020-12-05 14:37 | P.PN ---
Progress Note - Text Progress Note Date: 12/05/20 Chief Complaint: Shortness of breath History of presenting complaint: This is a pleasant 70-year-old patient of . Follows with pulmonary function technologist Dr. Holland. Chronic stable medical conditions include coronary artery disease with stent, some mild right-sided weakness from prior stroke, hypertension, hyperlipidemia, obstructive sleep apnea uses CPAP machine, TB in 1985, hiatal hernia, surgery for thoracic aortic aneurysm, sleep gastrectomy in [address] Hamilton. Patient now presents with 1 week of progressive increasing shortness of breath. Slight cough. Minimal sputum. Significant decrease appetite. No fever no chills. Tired rundown. Admitted with severe COPD exacerbation. Started on IV Solu-Medrol, bronchodilator. Today: Sitting up in bed. Has been up to the bathroom. Oral intake fair. Breathing somewhat better. Less wheezing. Review of systems: Was done for constitutional, cardiovascular, GI, pulmonary. relevant finding as above Active Medications Albuterol Sulfate (Albuterol Nebulized 2.5 Mg/3 Ml) 2.5 mg INHALATION RT-Q4H PRN PRN Reason: Dyspnea Last Admin: 12/05/20 03:35 Dose: 2.5 mg Documented by: Amlodipine Besylate (Amlodipine 10 Mg Tab) 10 mg PO DAILY [facility] Last Admin: 12/05/20 08:26 Dose: 10 mg Documented by: Atorvastatin Calcium (Atorvastatin 20 Mg Tab) 20 mg PO DAILY [facility] Last Admin: 12/05/20 08:26 Dose: 20 mg Documented by: Budesonide (Budesonide 1 Mg/2 Ml Nebu) 1 mg INHALATION RT-BID [facility] Last Admin: 12/05/20 08:04 Dose: 1 mg Documented by: Calcium Carbonate/Glycine (Calcium Carbonate 500 Mg Chewable) 1,000 mg PO QID PRN PRN Reason: Heartburn Last Admin: 12/04/20 23:37 Dose: 1,000 mg Documented by: Citalopram Hydrobromide (Citalopram Hydrobromide 20 Mg Tab) 20 mg PO DAILY [facility] Last Admin: 12/05/20 08:26 Dose: 20 mg Documented by: Clonidine (Clonidine Hcl 0.1 Mg Tab) 0.1 mg PO DAILY [facility] Last Admin: 12/05/20 08:26 Dose: 0.1 mg Documented by: Enoxaparin Sodium (Enoxaparin 40 Mg/0.4 Ml Syringe) 40 mg SQ DAILY [facility] Last Admin: 12/05/20 08:26 Dose: 40 mg Documented by: Formoterol Fumarate (Formoterol Fumarate 20 Mcg/2 Ml Nebu) 20 mcg INHALATION RT-BID [facility] Last Admin: 12/05/20 08:04 Dose: 20 mcg Documented by: Sodium Chloride (Saline 0.9%) 1,000 mls @ 100 mls/hr IV .Q10H [facility] Last Admin: 12/05/20 03:53 Dose: 100 mls/hr Documented by: Ipratropium [place] (Ipratropium 0.5 Mg/2.5 Ml Nebu) 0.5 mg INHALATION RT-Q4H [facility] Last Admin: 12/05/20 11:32 Dose: 0.5 mg Documented by: Methylprednisolone Sodium Succinate (Methylprednisolone Sod Succi 125 Mg/2 Ml Vial) 60 mg IV Q6HR [facility] Last Admin: 12/05/20 11:36 Dose: 60 mg Documented by: Metoprolol Tartrate (Metoprolol Tartrate 25 Mg Tab) 25 mg PO DAILY [facility] Last Admin: 12/05/20 08:26 Dose: 25 mg Documented by: Past medical history to include: Coronary artery disease with stent, COPD, stroke with some mild right-sided weakness, hyperlipidemia, hypertension, obstructive sleep apnea uses CPAP, TB 1985, hiatal hernia, sleep gastrectomy in 2017, surgery for thoracic aortic aneurysm Social history: Started smoking age of 15 stopped in 2011. One pack a day. Alcohol occasionally. Lives with her grandson. Occasionally uses a cane or a walker. Physical examination: VITAL SIGNS: 99.1, 76, 20, 155/78, 98% on 4 L GENERAL: Sitting up in bed, less short of breath EYES: Pupils equal. Conjunctiva normal. HEENT: External appearance of nose and ears normal, oral cavity grossly normal. NECK: JVD not raised; masses not palpable. HEART: First and second heart sounds are normal; no edema. LUNGS:[ Respiratory rate increased, decreased breath sounds prolonged expira tion. ABDOMEN: Soft, nontender, liver spleen not palpable, no masses palpable. PSYCH: Alert and oriented x3; mood and affect anxious INVESTIGATIONS, reviewed in the clinical context: WBC 7.4 hemoglobin 13.6 platelets 196 potassium 3.2 creatinine 0.46 Troponin I less than 0.012, proBNP 276 Coronavirus [PCR]-not detected EKG tracing personally reviewed by me-normal sinus rhythm, nonspecific T-wave changes CT chest for PE protocol: Emphysema. No pulmonary embolism. Chest x-ray film personally reviewed by me-prominent pulmonary artery. Mild aortic calcification. No obvious infiltrate Assessment and plan: -Acute severe COPD exacerbation in an [id number] started on bronchodilators, IV and inhaled steroids. Long-acting beta agonist. Pulmonary consulted. Cutback Solu-Medrol -Coronary artery disease with stent continue with Lopressor, Lipitor -Mild right hemiparesis from prior stroke -Hyperlipidemia, continue with Lipitor -Essential hypertension, continue with amlodipine, Lopressor -Obstructive sleep apnea uses CPAP , continue the same -Hiatal hernia -History of sleep gastrectomy -Depression not otherwise specified, continue Celexa -DVT prophylaxis , Subcu Lovenox Discussed with patient. Impression sitting up in a chair increase activity. Cutback - Solu-Medrol.
--- NOTE | 2020-12-05 15:08 | P.PN ---
Subjective Progress Note Date: 12/05/20 Principal diagnosis: Dyspnea This is a very pleasant 70-year-old female patient with a known history of coronary artery disease with previous stent placement, aortic aneurysm with endovascular stent grafting, CVA with some mild right-sided hemiparesis, hyperlipidemia, hypertension, obstructive sleep apnea, intolerant to CPAP, previous gastric sleeve placement, depression. She also has a history of tracheobronchomalacia, moderate to severe COPD with an FEV1 1 value of 0.9 L which is 46% of predicted. She follows with Dr. Holland in our office for the same. She is maintained on Pulmicort, Perforomist, Incruse. She presented here yesterday with complaints of increasing shortness of breath. She states she had been on steroids up until about 1 week ago on doing well. After the taper she isn't recurrent symptoms of worsening shortness of breath, dry nonproductive co ugh. She is admitted for COPD exacerbation. Chest x-ray revealed evidence of COPD. No acute pulmonary process. CT angiogram ruled out pulmonary embolus. There is some entry lobular emphysema. Some minimal diffuse bronchial wall thickening suspect bronchitis. She is seen today in follow-up on the regular medical floor. She is currently sitting up in bed. Awake and alert in no acute distress. Breathing easier today compared to yesterday. No worsening shortness of breath, cough or congestion. No fever, chills or night sweats. White count 7.4. Hemoglobin 13.6. D-dimer 4.48. Sodium 142. Potassium 3.2. Creatinine 0.46. BNP 276. Troponin negative 1. Rodriguez virus not detected. She's been initiated on Pulmicort and Perforomist inhalations, albuterol, IV Solu-Medrol. Lovenox for DVT prophylaxis. On 12/05/2020 patient seen in follow-up on medical surgical floor. She is [place] thing much easier today, her lung sounds are improved, her vitals have been stable overnight, she's had no acute events. She is on 4 L of oxygen her pulse ox is 98%, hemodynamically she has been stable, patient remains on breathing treatments, IV steroids currently Solu-Medrol 40 mg every 8 hours, she is on GI and DVT prophylaxis. Her CTA chest showed no evidence of pulmonary embolism. It did show centrilobular emphysema, and minimal diffuse bronchial wall thickening that could represent bronchitis Objective - Vital Signs Vital signs: Vital Signs Temp 99.1 F 12/05/20 08:00 Pulse 80 12/05/20 11:39 Resp 16 12/05/20 08:26 BP 155/78 12/05/20 08:00 Pulse Ox 98 12/05/20 08:00 Intake & Output 12/04/20 12/05/20 12/05/20 18:59 06:59 18:59 Intake Total 200 Balance 200 Intake: Oral 200 Other: Voiding Method Toilet Toilet Toilet # Voids 3 - Exam GENERAL EXAM: Alert, very pleasant, 70-year-old white female, on 4 L of oxygen pulse ox of 90% comfortable in no apparent distress. HEAD: Normocephalic/atraumatic. EYES: Normal reaction of pupils, equal size. Conjunctiva pink, sclera white. NOSE: Clear with pink turbinates. THROAT: No erythema or exudates. NECK: No masses, no JVD, no thyroid enlargement, no adenopathy. CHEST: No chest wall deformity. Symmetrical expansion. LUNGS: Equal air entry with diminished breath sounds CVS: Regular rate and rhythm, normal S1 and S2, no gallops, no murmurs, no rubs ABDOMEN: Soft, nontender. No hepatosplenomegaly, normal bowel sounds, no guarding or rigidity. EXTREMITIES: No clubbing, no edema, no cyanosis, 2+ pulses and upper and lower extremities. MUSCULOSKELETAL: Muscle strength and tone normal. SPINE: No scoliosis or deformity SKIN: No rashes CENTRAL NERVOUS SYSTEM: Alert and oriented -3. No focal deficits, tone is normal in all 4 extremities. PSYCHIATRIC: Alert and oriented -3. Appropriate affect. Intact judgment and insight. - Labs CBC & Chem 7: 12/03/20 23:24 12/03/20 23:24 Assessment and Plan Plan: 1 Acute exacerbation of chronic obstructive pulmonary disease. 2 Severe chronic obstructive pulmonary disease FEV1 value of 47% of predicted. Maintained on Pulmicort, Perforomist, increase in the outpatient setting. 3 Coronary artery disease with previous stent placement 4 History of CVA with some residual right-sided weakness 5 Hyperlipidemia 6 Hypertension 7 Obstructive sleep apnea with an AHI of 21 maintained on BiPAP at a pressure of 16/10 cm of water 8 History of tuberculosis 9 History of gastric sleeve surgery in 2018 10 History of hiatal hernia 11 History of thoracic aortic aneurysm post-endovascular stent placement Plan: Patient is doing well Clinically improving Continue weaning FiO2 Continue steroids and breathing treatments No evidence of pulmonary embolism on the CTA chest No fever or chills From pulmonary perspective patient can be considered for discharge home tomorrow I performed a history & physical examination of the patient and discussed their management with my nurse practitioner, Jacque Arvizu. I reviewed the nurse practitioner's note and agree with the documented findings and plan of care. Lung sounds are positive for diminished breath sounds. The findings and the impression was discussed with the patient. I attest to the documentation by the nurse practitioner. Time with Patient: Less than 30
[2020-12-05] MEDS: methylPREDNISolone SOD SUCCI 40 MG/ML 1 ML VIAL IV SCH (16:04)
[2020-12-06] MEDS: IPRATROPIUM 0.5 MG/2.5 ML NEBU INHALATION SCH ×4 (00:04→12:38)
[2020-12-06] MEDS: methylPREDNISolone SOD SUCCI 40 MG/ML 1 ML VIAL IV SCH ×2 (00:06→07:24)
[2020-12-06 02:40] VITALS: RESP 17
[2020-12-06 07:22] VITALS: BP 147/85; TEMP 98.2
[2020-12-06] MEDS: SODIUM CHLORIDE 0.9% 1,000 ML IV SCH (07:24)
[2020-12-06] MEDS: amLODIPine 10 MG TAB PO SCH (08:17)
[2020-12-06] MEDS: ENOXAPARIN 40 MG/0.4 ML SYRINGE SQ SCH (08:17)
[2020-12-06] MEDS: CITALOPRAM HYDROBROMIDE 20 MG TAB PO SCH (08:17)
[2020-12-06] MEDS: cloNIDine HCL 0.1 MG TAB PO SCH (08:17)
[2020-12-06] MEDS: ATORVASTATIN 20 MG TAB PO SCH (08:17)
[2020-12-06] MEDS: METOPROLOL TARTRATE 25 MG TAB PO SCH (08:17)
[2020-12-06] MEDS: BUDESONIDE 1 MG/2 ML NEBU INHALATION SCH (08:29)
[2020-12-06] MEDS: FORMOTEROL FUMARATE 20 MCG/2 ML NEBU INHALATION SCH (08:29)
[2020-12-06 08:53] VITALS: PULSE 84
--- NOTE | 2020-12-06 13:07 | P.PN ---
Subjective Progress Note Date: 12/06/20 Principal diagnosis: Dyspnea This is a very pleasant 70-year-old female patient with a known history of coronary artery disease with previous stent placement, aortic aneurysm with endovascular stent grafting, CVA with some mild right-sided hemiparesis, hyperlipidemia, hypertension, obstructive sleep apnea, intolerant to CPAP, previous gastric sleeve placement, depression. She also has a history of tracheobronchomalacia, moderate to severe COPD with an FEV1 1 value of 0.9 L which is 46% of predicted. She follows with Dr. Holland in our office for the same. She is maintained on Pulmicort, Perforomist, Incruse. She presented here yesterday with complaints of increasing shortness of breath. She states she had been on steroids up until about 1 week ago on doing well. After the taper she isn't recurrent symptoms of worsening shortness of breath, dry nonproductive co ugh. She is admitted for COPD exacerbation. Chest x-ray revealed evidence of COPD. No acute pulmonary process. CT angiogram ruled out pulmonary embolus. There is some entry lobular emphysema. Some minimal diffuse bronchial wall thickening suspect bronchitis. She is seen today in follow-up on the regular medical floor. She is currently sitting up in bed. Awake and alert in no acute distress. Breathing easier today compared to yesterday. No worsening shortness of breath, cough or congestion. No fever, chills or night sweats. White count 7.4. Hemoglobin 13.6. D-dimer 4.48. Sodium 142. Potassium 3.2. Creatinine 0.46. BNP 276. Troponin negative 1. Rodriguez virus not detected. She's been initiated on Pulmicort and Perforomist inhalations, albuterol, IV Solu-Medrol. Lovenox for DVT prophylaxis. On 12/05/2020 patient seen in follow-up on medical surgical floor. She is brooklynn thing much easier today, her lung sounds are improved, her vitals have been stable overnight, she's had no acute events. She is on 4 L of oxygen her pulse ox is 98%, hemodynamically she has been stable, patient remains on breathing treatments, IV steroids currently Solu-Medrol 40 mg every 8 hours, she is on GI and DVT prophylaxis. Her CTA chest showed no evidence of pulmonary embolism. It did show centrilobular emphysema, and minimal diffuse bronchial wall thickening that could represent bronchitis On 12/06/2020 patient seen in follow-up on medical surgical floor, she is awake and alert, oriented 3, appears to be in no acute distress, lung sounds are clear today's examination, no wheezing, no rhonchi, she remains on 4 L of oxygen pulse ox is 97-98%, she's been afebrile, still has some exertional dyspnea, and a slight cough, no phlegm production, overall she states her breathing sign ificantly improved since admission. She remains on breathing treatments including Pulmicort and Perforomist, DuoNeb, IV steroids. She's had no acute events overnight. We have cleared the patient for discharge home today Objective - Vital Signs Vital signs: Vital Signs Temp 98.2 F 12/06/20 07:20 Pulse 84 12/06/20 08:53 Resp 17 12/06/20 07:20 BP 147/85 12/06/20 07:20 Pulse Ox 97 12/06/20 07:20 Intake & Output 12/05/20 12/06/20 12/06/20 18:59 06:59 18:59 Intake Total 200 Balance 200 Intake: Oral 200 Other: Voiding Method Toilet Toilet # Voids 4 2 - Exam GENERAL EXAM: Alert, very pleasant, 70-year-old white female, on 4 L of oxygen pulse ox of 97% comfortable in no apparent distress. HEAD: Normocephalic/atraumatic. EYES: Normal reaction of pupils, equal size. Conjunctiva pink, sclera white. NOSE: Clear with pink turbinates. THROAT: No erythema or exudates. NECK: No masses, no JVD, no thyroid enlargement, no adenopathy. CHEST: No chest wall deformity. Symmetrical expansion. LUNGS: Equal air entry with diminished breath sounds CVS: Regular rate and rhythm, normal S1 and S2, no gallops, no murmurs, no rubs ABDOMEN: Soft, nontender. No hepatosplenomegaly, normal bowel sounds, no guarding or rigidity. EXTREMITIES: No clubbing, no edema, no cyanosis, 2+ pulses and upper and lower extremities. MUSCULOSKELETAL: Muscle strength and tone normal. SPINE: No scoliosis or deformity SKIN: No rashes CENTRAL NERVOUS SYSTEM: Alert and oriented -3. No focal deficits, tone is normal in all 4 extremities. PSYCHIATRIC: Alert and oriented -3. Appropriate affect. Intact judgment and insight. - Labs CBC & Chem 7: 12/03/20 23:24 12/03/20 23:24 Assessment and Plan Plan: 1 Acute exacerbation of chronic obstructive pulmonary disease. 2 Severe chronic obstructive pulmonary disease FEV1 value of 47% of predicted. Maintained on Pulmicort, Perforomist, increase in the outpatient setting. 3 Coronary artery disease with previous stent placement 4 History of CVA with some residual right-sided weakness 5 Hyperlipidemia 6 Hypertension 7 Obstructive sleep apnea with an AHI of 21 maintained on BiPAP at a pressure of 16/10 cm of water 8 History of tuberculosis 9 History of gastric sleeve surgery in 2018 10 History of hiatal hernia 11 History of thoracic aortic aneurysm post-endovascular stent placement Plan: Patient continues to improve No acute events overnight Vital signs have been stable No worsening dyspnea No wheezing, minimal cough and no phlegm production From pulmonary perspective patient can be considered for discharge home today I performed a history & physical examination of the patient and discussed their management with my nurse practitioner, Jacque Arvizu. I reviewed the nurse practitioner's note and agree with the documented findings and plan of care. Lung sounds are positive for diminished breath sounds. The findings and the impression was discussed with the patient. I attest to the documentation by the nurse practitioner. Time with Patient: Less than 30
--- NOTE | 2020-12-06 18:45 | P.DS ---
Providers Date of admission: 12/04/20 02:39 Expected date of discharge: 12/06/20 Attending physician: Murali Masters Consults: 12/04/20 02:39 Consult Physician Routine Consulting Provider: Celia Holland Consult Reason/Comments: COPD exacerbation Do you want consulting provider notified?: Yes Primary care physician: Gonsalo Iraheta [facility] Course: Chief Complaint: Shortness of breath History of presenting complaint: This is a pleasant 70-year-old patient of . 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 Chronic stable medical conditions include coronary artery disease with stent, some mild right-sided weakness from prior stroke, hypertension, hyperlipidemia, obstructive sleep apnea uses CPAP machine, TB in 1985, hiatal hernia, surgery for thoracic aortic aneurysm, sleep gastrectomy in [address] Hamilton. Patient now presents with 1 week of progressive increasing shortness of breath. Slight cough. Minimal sputum. Significant decrease appetite. No fever no chills. Tired rundown. Admitted with severe COPD exacerbation. Started on IV Solu-Medrol, bronchodilator. Patient's lower extremity swelling could be from amlodipine. Today: Doing better. Discussed with the patient. Will DC the Lasix and potassium supplement. Use KOLE stockings instead for the swelling. We will also DC clonidine and is just metoprolol tartrate 25 mg twice daily. Discussion and discharge planning more than 35 minutes Consultation: Dr. harrington from pulmonary Past medical history to include: Coronary artery disease with stent, COPD, stroke with some mild right-sided weakness, hyperlipidemia, hypertension, obstructive sleep apnea uses CPAP, TB 1985, hiatal hernia, sleep gastrectomy in 2018, surgery for thoracic aortic aneurysm Social history: Started smoking age of 15 stopped in 2011. One pack a day. Alcohol occasionally. Lives with her grandson. Occasionally uses a cane or a walker. Physical examination: VITAL SIGNS: 98.2, 55, 17, 147/85, 97% on 4 L GENERAL: Sitting up in bed, comfortable EYES: Pupils equal. Conjunctiva normal. NECK: JVD not raised; masses not palpable. HEART: First and second heart sounds are normal; no edema. LUNGS:[ Respiratory rate normal improved air entry ABDOMEN: Soft, nontender, liver spleen not palpable, no masses palpable. PSYCH: Alert and oriented x3; mood and affect anxious INVESTIGATIONS, reviewed in the clinical context: WBC 7.4 hemoglobin 13.6 platelets 196 potassium 3.2 creatinine 0.46 Troponin I less than 0.012, proBNP 276 Coronavirus [PCR]-not detected EKG tracing personally reviewed by me-normal sinus rhythm, nonspecific T-wave changes CT chest for PE protocol: Emphysema. No pulmonary embolism. Chest x-ray film personally reviewed by me-prominent pulmonary artery. Mild aortic calcification. No obvious infiltrate Assessment and plan: -Acute severe COPD exacerbation in an [id number] started on bronchodilators, IV and inhaled steroids. Long-acting beta agonist. Pulmonary consulted. Discharged home on tapering prednisone. -Coronary artery disease with stent continue with Lopressor, Lipitor -Mild right hemiparesis from prior stroke -Hyperlipidemia, continue with Lipitor -Essential hypertension, continue with amlodipine, Lopressor -Obstructive sleep apnea uses CPAP , continue the same -Hiatal hernia -History of sleep gastrectomy -Depression not otherwise specified, continue Celexa -DVT prophylaxis , Subcu Lovenox -Lower extremity edema secondary to amlodipine. KOLE stockings. DC Lasix Disposition: Home Patient Condition at Discharge: Fair Plan - Discharge Summary Discharge Rx Participant: No New Discharge Prescriptions: New predniSONE 10 mg PO DAILY #30 tab Continue Citalopram Hydrobromide [CeleXA] 20 mg PO DAILY Umeclidinium [place] [Incruse Ellipta] 1 puff INHALATION RT-DAILY Atorvastatin [Lipitor] 20 mg PO DAILY amLODIPine BESYLATE 10 mg PO DAILY Albuterol Nebulized [Ventolin Nebulized] 2.5 mg INHALATION RT-TID PRN PRN Reason: Shortness Of Breath Albuterol Sulfate [Proair Hfa] 2 puff INHALATION RT-QID PRN PRN Reason: Shortness Of Breath Formoterol Fumarate [Perforomist] 20 mcg INHALATION RT-DAILY Changed Budesonide [Pulmicort] 0.5 mg INHALATION BID #60 neb Metoprolol Tartrate [Lopressor] 25 mg PO BID #60 tab Discontinued cloNIDine HCL [Catapres] 0.1 mg PO DAILY Hydrochlorothiazide [hydroCHLOROthiazide] 12.5 mg PO DAILY Potassium Chloride ER [K-Dur 20] 20 meq PO DAILY Furosemide [Lasix] 40 mg PO DAILY Discharge Medication List Citalopram Hydrobromide [CeleXA] 20 mg PO DAILY 05/01/16 [History] Umeclidinium [place] [Incruse Ellipta] 1 puff INHALATION RT-DAILY 11/07/17 [History] Atorvastatin [Lipitor] 20 mg PO DAILY 03/09/19 [History] amLODIPine BESYLATE 10 mg PO DAILY 03/09/19 [History] Albuterol Nebulized [Ventolin Nebulized] 2.5 mg INHALATION RT-TID PRN 09/14/20 [History] Formoterol Fumarate [Perforomist] 20 mcg INHALATION RT-DAILY 10/12/20 [History] Albuterol Sulfate [Proair Hfa] 2 puff INHALATION RT-QID PRN 12/04/20 [History] Budesonide [Pulmicort] 0.5 mg INHALATION BID #60 neb 12/06/20 [Rx] Metoprolol Tartrate [Lopressor] 25 mg PO BID #60 tab 12/06/20 [Rx] predniSONE 10 mg PO DAILY #30 tab 12/06/20 [Rx] Follow up Appointment(s)/Referral(s): Gonsalo Phan DO [Primary Care Provider] - 1-2 days Celia Holland MD [STAFF PHYSICIAN] - 1 Week Patient Instructions/Handouts: Metoprolol (By mouth), Prednisone (By mouth), Budesonide (By breathing), Using Oxygen at Home (DC), COPD (Chronic Obstructive Pulmonary Disease) (DC), KOLE Hose (DC) Activity/Diet/Wound Care/Special Instructions: home fio2 -2l KOLE stockings - send home with Discharge Disposition: HOME SELF-CARE
== END 2020-12-06 12:50 | disposition home or self-care (01) | DRG 191 ==
LOC: EC 22:51 → 4SSUR 12-04 02:39
PROVIDERS: ADMIT Hospitalist; ATTEND Hospitalist
DX: J44.1 Chronic obstructive pulmonary disease with (acute) exacerbation (principal); I69.351 Hemiplegia and hemiparesis following cerebral infarction affecting right dominant side; Z88.0 Allergy status to penicillin; Z88.2 Allergy status to sulfonamides; I10 Essential (primary) hypertension; E78.5 Hyperlipidemia, unspecified; I25.2 Old myocardial infarction; I25.10 Atherosclerotic heart disease of native coronary artery without angina pectoris; Z86.11 Personal history of tuberculosis; Z95.5 Presence of coronary angioplasty implant and graft; Z20.822 Contact with and (suspected) exposure to COVID-19; Z98.84 Bariatric surgery status; Z87.891 Personal history of nicotine dependence; Z82.49 Family history of ischemic heart disease and other diseases of the circulatory system; Z82.5 Family history of asthma and other chronic lower respiratory diseases; G47.33 Obstructive sleep apnea (adult) (pediatric); K44.9 Diaphragmatic hernia without obstruction or gangrene; F32.9 Major depressive disorder, single episode, unspecified; Z79.51 Long term (current) use of inhaled steroids; R60.0 Localized edema; T46.2X5A Adverse effect of other antidysrhythmic drugs, initial encounter
CPT/HCPCS: 36415; 71045; 71275; 80053; 82803; 83605; 83735; 83880; 84484; 85025; 85379; 85610; 85730; 87635; 93005; 94640; 94660; 99285

== ENCOUNTER 2020-12-29 05:38 | Inpatient (IN) | payer MEDICARE ==
[2020-12-29] MEDS ORDERED: LORazepam 2 MG/ML INJ IV STA (05:41)
[2020-12-29] MEDS ORDERED: ALBUTEROL NEBULIZED 2.5 MG/3 ML INHALATION STA (05:41)
[2020-12-29] MEDS ORDERED: IPRATROPIUM 0.5 MG/2.5 ML NEBU INHALATION STA (05:41)
[2020-12-29] MEDS ORDERED: methylPREDNISolone SOD SUCCI 125 MG/2 ML VIAL IV STA (05:41)
[2020-12-29] MEDS ORDERED: MORPHINE SULFATE 2 MG/ML SYRINGE IVP STA (05:42)
[2020-12-29] MEDS ORDERED: ENALAPRILAT 1.25 MG/ML 1 ML VIAL IVP STA (05:42)
--- NOTE | 2020-12-29 05:46 | ED ---
SOB HPI - General Stated Complaint: ALBER Time Seen by Provider: 12/29/20 05:41 Source: patient, EMS, RN notes reviewed, old records reviewed Mode of arrival: EMS Limitations: no limitations - History of Present Illness Initial Comments: This is a 70-year-old female poor story and called EMS for severe onset of shortness of breath. Patient's brought in by EMS who states patient was significantly hypoxic and difficult to arouse low patient is improving during transfer with breathing treatment BiPAP and supplemental O2. Patient herself is a poor strain currently secondary severe clinical condition, history is obtained by EMS and patient's chart MD Complaint: shortness of breath, cough, "asthma attack", anxiety -: hour(s) Severity: severe Severity scale (1-10): 10 Consistency: constant Improves With: oxygen, rest, bronchodilators, medication Worsens With: exertion, movement Known History Of: COPD Context: recent URI, anxiety Associated Symptoms: cough, sputum production, diaphoresis Treatments Prior to Arrival: oxygen, bronchodilator, NIPPV - Related Data Home Medications Medication Instructions Recorded Confirmed Citalopram Hydrobromide [CeleXA] 20 mg PO DAILY 05/01/16 12/29/20 Umeclidinium [place] [Incruse 1 puff INHALATION RT-DAILY 11/07/17 12/29/20 Ellipta] Atorvastatin [Lipitor] 20 mg PO DAILY 03/09/19 12/29/20 amLODIPine BESYLATE 10 mg PO DAILY 03/09/19 12/29/20 Albuterol Nebulized [Ventolin 2.5 mg INHALATION RT-TID PRN 09/14/20 12/29/20 Nebulized] Formoterol Fumarate [Perforomist] 20 mcg INHALATION RT-DAILY 10/12/20 12/29/20 Albuterol Sulfate [Proair Hfa] 2 puff INHALATION RT-QID PRN 12/04/20 12/29/20 Budesonide [Pulmicort] 0.5 mg INHALATION RT-BID 12/29/20 12/29/20 Previous Rx's Medication Instructions Recorded Metoprolol Tartrate [Lopressor] 25 mg PO BID #60 tab 12/06/20 predniSONE 0 mg PO DIRECTED 16 Days #40 tab 12/30/20 Aspirin 81 mg PO DAILY chew 12/31/20 Allergies Allergy/AdvReac Type Severity Reaction Status Date / Time levofloxacin [From Levaquin] Allergy Rash/Hives Verified 12/29/20 07:51 Penicillins Allergy Rash/Hives Verified 12/29/20 07:51 Sulfa (Sulfonamide Allergy Rash/Hives Verified 12/29/20 07:51 Antibiotics) sulfamethoxazole Allergy Rash/Hives Verified 12/29/20 07:51 [From Bactrim] trimethoprim [From Bactrim] Allergy Rash/Hives Verified 12/29/20 07:51 Review of Systems ROS Statement: Those systems with pertinent positive or pertinent negative responses have been documented in the HPI. ROS Other: All systems not noted in ROS Statement are negative. Past Medical History Past Medical History: Coronary Artery Disease (CAD), Cancer, COPD, CVA/TIA, Hyperlipidemia, Hypertension, Myocardial Infarction (MS), Sleep Apnea/CPAP/BIPAP Additional Past Medical History / Comment(s): CAD, previous history of coronary stent, thoracic aortic aneurysm with previous endovascular stent grafting, remote history of tuberculosis back in 1985, twice a with an AHI of 21, not utilizing her BiPAP, skin cancer, history of CVA with residual right-sided weakness, obesity with a previous history of sleep gastrectomy, COPD Last Myocardial Infarction Date:: 01/25/2006 History of Any Multi-Drug Resistant Organisms: None Reported Past Surgical History: Bariatric Surgery, Cholecystectomy, Heart Catheterization With Stent, Hernia Repair Additional Past Surgical History / Comment(s): Cyst removed from thyroid, HEART CATH WITH STENT X2, SURGERY FOR Thoracic Aortic Aneurysm, Ventral hernia repair with mesh July 2017. EGD, COLONOSCOPY. sleeve gastrectomy 05/19/18 (Dr. Jose Hamilton) Past Anesthesia/Blood Transfusion Reactions: Postoperative Nausea & Vomiting (PONV) Date of Last Stent Placement:: 2009 Past Psychological History: Depression Smoking Status: Former smoker Past Alcohol Use History: Occasional Past Drug Use History: Marijuana - Past Family History Father Family Medical History: COPD, Myocardial Infarction (MS) Mother Family Medical History: Hypertension Additional Family Medical History / Comment(s): Pacemaker, heart issues Sister(s) Family Medical History: Cancer General Exam Limitations: no limitations General appearance: alert, in no apparent distress, anxious, in distress Head exam: Present: atraumatic, normocephalic, normal inspection Eye exam: Present: normal appearance, PERRL, EOMI. Absent: scleral icterus, conjunctival injection, periorbital swelling ENT exam: Present: normal exam, mucous membranes moist Neck exam: Present: normal inspection. Absent: tenderness, meningismus, lymphadenopathy Respiratory exam: Present: wheezes, accessory muscle use, decreased breath sounds, prolonged expiratory, other (Minimal breath sounds). Absent: r espiratory distress, rales, rhonchi, stridor Cardiovascular Exam: Present: normal rhythm, tachycardia, normal heart sounds. Absent: systolic murmur, diastolic murmur, rubs, gallop, clicks GI/Abdominal exam: Present: soft, normal bowel sounds. Absent: distended, tenderness, guarding, rebound, rigid Extremities exam: Present: normal inspection, full ROM, normal capillary refill. Absent: tenderness, pedal edema, joint swelling, calf tenderness Back exam: Present: normal inspection Neurological exam: Present: alert, oriented X3, CN II-XII intact Psychiatric exam: Present: normal affect, normal mood Skin exam: Present: warm, dry, intact, normal color. Absent: rash Course Vital Signs 12/29/20 12/29/20 12/29/20 05:39 05:52 06:12 Temperature 96.4 F L Pulse Rate 113 H 116 H 113 H Respiratory 24 Rate Blood Pressure 172/88 O2 Sat by Pulse 94 L Oximetry 12/29/20 12/29/20 12/29/20 06:31 06:43 06:52 Temperature Pulse Rate 113 H 121 H 120 H Respiratory 20 Rate Blood Pressure 132/85 O2 Sat by Pulse 97 Oximetry 12/29/20 12/29/20 07:21 08:12 Temperature 96.4 F L Pulse Rate 112 H 112 H Respiratory 22 22 Rate Blood Pressure 108/60 108/60 O2 Sat by Pulse 96 96 Oximetry - Reevaluation(s) Reevaluation #1: 12/29/20 06:34 Medical record is reviewed Reevaluation #2: 12/29/20 06:34 Patient continued on BiPAP on arrival to ER Medical Decision Making - Medical Decision Making 70 female severe respiratory distress. Patient be admitted for acute respiratory failure. Continued on BiPAP - Lab Data Result diagrams: 12/29/20 05:47 12/29/20 05:47 Lab Results 12/29/20 12/29/20 12/29/20 Range/Units 05:47 05:47 05:47 WBC 12.2 H (3.8-10.6) k/uL RBC 4.03 (3.80-5.40) m/uL Hgb 13.0 (11.4-16.0) gm/dL Hct 39.1 (34.0-46.0) % MCV 97.0 (80.0-100.0) fL MCH 32.1 (25.0-35.0) pg MCHC 33.1 (31.0-37.0) g/dL RDW 13.2 (11.5-15.5) % Plt Count 257 (150-450) k/uL MPV 6.8 Neutrophils % 64 % Lymphocytes % 24 % Monocytes % 5 % Eosinophils % 5 % Basophils % 1 % Neutrophils # 7.8 H (1.3-7.7) k/uL Lymphocytes # 2.9 (1.0-4.8) k/uL Monocytes # 0.6 (0-1.0) k/uL Eosinophils # 0.6 (0-0.7) k/uL Basophils # 0.1 (0-0.2) k/uL PT 9.9 (9.0-12.0) sec INR 0.9 (<1.2) APTT 19.5 L (22.0-30.0) sec Sodium 141 (137-145) mmol/L Potassium 3.5 (3.5-5.1) mmol/L Chloride 109 H (98-107) mmol/L Carbon Dioxide 27 (22-30) mmol/L Anion Gap 5 mmol/L BUN 15 (7-17) mg/dL Creatinine 0.48 L (0.52-1.04) mg/dL Est GFR (CKD-EPI)AfAm >90 (>60 ml/min/1.73 sqM) Est GFR (CKD-EPI)NonAf >90 (>60 ml/min/1.73 sqM) Glucose 148 H (74-99) mg/dL Plasma Lactic Acid Valerio (0.7-2.0) mmol/L Calcium 8.7 (8.4-10.2) mg/dL Magnesium 2.2 (1.6-2.3) mg/dL Total Bilirubin 0.3 (0.2-1.3) mg/dL AST 20 (14-36) U/L ALT 11 (4-34) U/L Alkaline Phosphatase 27 L (38-126) U/L Creatine Kinase 63 (30-135) U/L Troponin I (0.000-0.034) ng/mL NT-Pro-B Natriuret Pep pg/mL Total Protein 6.4 (6.3-8.2) g/dL Albumin 4.0 (3.5-5.0) g/dL Coronavirus (PCR) (Not Detectd) 12/29/20 12/29/20 12/29/20 Range/Units 05:47 05:47 05:47 WBC (3.8-10.6) k/uL RBC (3.80-5.40) m/uL Hgb (11.4-16.0) gm/dL Hct (34.0-46.0) % MCV (80.0-100.0) fL MCH (25.0-35.0) pg MCHC (31.0-37.0) g/dL RDW (11.5-15.5) % Plt Count (150-450) k/uL MPV Neutrophils % % Lymphocytes % % Monocytes % % Eosinophils % % Basophils % % Neutrophils # (1.3-7.7) k/uL Lymphocytes # (1.0-4.8) k/uL Monocytes # (0-1.0) k/uL Eosinophils # (0-0.7) k/uL Basophils # (0-0.2) k/uL PT (9.0-12.0) sec INR (<1.2) APTT (22.0-30.0) sec Sodium (137-145) mmol/L Potassium (3.5-5.1) mmol/L Chloride (98-107) mmol/L Carbon Dioxide (22-30) mmol/L Anion Gap mmol/L BUN (7-17) mg/dL Creatinine (0.52-1.04) mg/dL Est GFR (CKD-EPI)AfAm (>60 ml/min/1.73 sqM) Est GFR (CKD-EPI)NonAf (>60 ml/min/1.73 sqM) Glucose (74-99) mg/dL Plasma Lactic Acid Valerio 0.8 (0.7-2.0) mmol/L Calcium (8.4-10.2) mg/dL Magnesium (1.6-2.3) mg/dL Total Bilirubin (0.2-1.3) mg/dL AST (14-36) U/L ALT (4-34) U/L Alkaline Phosphatase (38-126) U/L Creatine Kinase (30-135) U/L Troponin I <0.012 (0.000-0.034) ng/mL NT-Pro-B Natriuret Pep 181 pg/mL Total Protein (6.3-8.2) g/dL Albumin (3.5-5.0) g/dL Coronavirus (PCR) (Not Detectd) 12/29/20 Range/Units 06:06 WBC (3.8-10.6) k/uL RBC (3.80-5.40) m/uL Hgb (11.4-16.0) gm/dL Hct (34.0-46.0) % MCV (80.0-100.0) fL MCH (25.0-35.0) pg MCHC (31.0-37.0) g/dL RDW (11.5-15.5) % Plt Count (150-450) k/uL MPV Neutrophils % % Lymphocytes % % Monocytes % % Eosinophils % % Basophils % % Neutrophils # (1.3-7.7) k/uL Lymphocytes # (1.0-4.8) k/uL Monocytes # (0-1.0) k/uL Eosinophils # (0-0.7) k/uL Basophils # (0-0.2) k/uL PT (9.0-12.0) sec INR (<1.2) APTT (22.0-30.0) sec Sodium (137-145) mmol/L Potassium (3.5-5.1) mmol/L Chloride (98-107) mmol/L Carbon Dioxide (22-30) mmol/L Anion Gap mmol/L BUN (7-17) mg/dL Creatinine (0.52-1.04) mg/dL Est GFR (CKD-EPI)AfAm (>60 ml/min/1.73 sqM) Est GFR (CKD-EPI)NonAf (>60 ml/min/1.73 sqM) Glucose (74-99) mg/dL Plasma Lactic Acid Valerio (0.7-2.0) mmol/L Calcium (8.4-10.2) mg/dL Magnesium (1.6-2.3) mg/dL Total Bilirubin (0.2-1.3) mg/dL AST (14-36) U/L ALT (4-34) U/L Alkaline Phosphatase (38-126) U/L Creatine Kinase (30-135) U/L Troponin I (0.000-0.034) ng/mL NT-Pro-B Natriuret Pep pg/mL Total Protein (6.3-8.2) g/dL Albumin (3.5-5.0) g/dL Coronavirus (PCR) Not Detected (Not Detectd) - EKG Data -: EKG Interpreted by Me (EKG is sinus tachycardia 116. 146 QRS 80 QTC 447) - Radiology Data Radiology results: report reviewed (Chest x-rays negative for acute disease), image reviewed Critical Care Time Critical Care Time: Yes Total Critical Care Time: 31 Disposition Clinical Impression: COPD exacerbation, Acute exacerbation of chronic obstructive pulmonary disease, Respiratory failure, Hypoxia Disposition: ADMITTED IP TO THIS HOSP Is patient prescribed a controlled substance at d/c from ED?: No
[2020-12-29 06:21] LABS: Basophils # (A) 0.1 k/uL (0-0.2); Basophils % (A) 1 %; Eosinophils # (A) 0.6 k/uL (0-0.7); Eosinophils % (A) 5 %; HCT 39.1 % (34.0-46.0); Lymphocytes # (A) 2.9 k/uL (1.0-4.8); Lymphocytes % (A) 24 %; MCH 32.1 pg (25.0-35.0); MCHC 33.1 g/dL (31.0-37.0); Mean Platelet Volume 6.8; Monocytes # (A) 0.6 k/uL (0-1.0); Monocytes % (A) 5 %; Neutrophils # (A) 7.8 k/uL (1.3-7.7); Neutrophils % (A) 64 %; Platelet Count 257 k/uL (150-450); RBC 4.03 m/uL (3.80-5.40); RDW 13.2 % (11.5-15.5); WBC 12.2 k/uL (3.8-10.6)
[2020-12-29] MEDS ORDERED: IPRATROPIUM-ALBUTEROL 3 ML NEB INHALATION PRN (06:22)
[2020-12-29] MEDS ORDERED: ONDANSETRON 4 MG/2 ML VIAL IVP PRN (06:22)
[2020-12-29] MEDS ORDERED: NALOXONE 0.4 MG/ML 1 ML VIAL IV PRN (06:22)
[2020-12-29 06:25] LABS: ALT 11 U/L (4-34); AST 20 U/L (14-36); African American GFR (CKD) >90 (>60 ml/min/1.73 sqM); Alkaline Phosphatase 27 U/L (38-126); Anion Gap 5 mmol/L; Blood Urea Nitrogen 15 mg/dL (7-17); Calcium 8.7 mg/dL (8.4-10.2); Carbon Dioxide 27 mmol/L (22-30); Chloride 109 mmol/L (98-107); Creatine Kinase 63 U/L (30-135); Glucose 148 mg/dL (74-99); Magnesium 2.2 mg/dL (1.6-2.3); Non-African American GFR(CKD) >90 (>60 ml/min/1.73 sqM); Potassium 3.5 mmol/L (3.5-5.1); Sodium 141 mmol/L (137-145); Total Bilirubin 0.3 mg/dL (0.2-1.3); Total Protein 6.4 g/dL (6.3-8.2)
[2020-12-29 06:33] LABS: INR 0.9 (<1.2); Prothrombin Time 9.9 sec (9.0-12.0)
--- NOTE | 2020-12-29 06:35 | XR ---
EXAM: XR Chest, 1 View CLINICAL HISTORY: ITS.REASON XR Reason: sob TECHNIQUE: Frontal view of the chest. COMPARISON: December 03, 2020. FINDINGS: Lungs: Unremarkable. No acute infiltration, atelectasis or mass. Pleural space: Unremarkable. No pneumothorax or pleural fluid. Heart: Unremarkable. No cardiomegaly. Mediastinum: Unremarkable. Bones/joints: No acute findings. Vasculature: There is an endovascular stent graft within the descending thoracic aorta. IMPRESSION: No acute findings in the chest.
[2020-12-29 06:39] LABS: Partial Thromboplastin Time 19.5 sec (22.0-30.0)
[2020-12-29] MEDS: SODIUM CHLORIDE 0.9% 1,000 ML IV SCH ×2 (06:45→16:53)
[2020-12-29] MEDS ORDERED: ALBUTEROL NEBULIZED 2.5 MG/3 ML INHALATION SCH (08:00)
--- NOTE | 2020-12-29 09:15 | P.CNPUL ---
History of Present Illness Consult date: 12/29/20 Requesting physician: Murali Masters Reason for consult: dyspnea, COPD, hypoxemia, pulmonary hypertension, obstructive sleep apnea Chief complaint: Shortness of breath. History of present illness: Pulmonary consult dated 12/29/2020. 70-year-old female, who apparently presented to the emergency department, December 29, at 5:30 in the morning. She apparently called EMS because of severe onset of shortness of breath. She apparently was quite hypoxemic, and was difficult to arouse. Her saturations were low. She was placed on BiPAP in transfer. Currently, the patient is in the emergency department, and trauma to room. She is on BiPAP, with settings of IPAP 14, EPAP 5, at 50%. She's getting saline running at KVO. She was recently in the hospital for similar episode between December 04 of December 06. Seen by my partner and by myself. Again, because she's somewhat lethargic, she is not a particularly good historian at this time. She has a history of CAD, COPD, CVA, hyperlipidemia, hypertension, myocardial infarction, sleep apnea syndrome, coronary stenting, thoracic aortic aneurysm endovascular stenting, remote history of tuberculosis, skin cancer, and obesity. She was a former smoker. She does use marijuana occasionally. White count 12.2, hemoglobin hematocrit and platelet count normal. PT/INR is normal. Sodium 141, potassium 3.5, chlorides 109, CO2 27, anion gap 5, BUN 15, and creatinine 0.48. Chest x-ray, shows no acute or abnormal findings. Review of Systems REVIEW OF SYSTEMS: CONSTITUTIONAL: Lethargy and somnolence. NEUROLOGIC: [ Negative.] HEENT: [ Negative.] CARDIAC: [Negative.] PULMONARY: Shortness of breath. GI: [Negative.] : [Negative.] RHEUMATOLOGIC: [ Negative.] IMMUNOLOGIC: [ Negative.] ENDOCRINE: [Negative. ] DERMATOLOGIC: [Negative.] Past Medical History Past Medical History: Coronary Artery Disease (CAD), Cancer, COPD, CVA/TIA, Hyperlipidemia, Hypertension, Myocardial Infarction ([place]), Sleep Apnea/CPAP/BIPAP Additional Past Medical History / Comment(s): CAD, previous history of coronary stent, thoracic aortic aneurysm with previous endovascular stent grafting, remote history of tuberculosis back in 1985, twice a with an AHI of 21, not utilizing her BiPAP, skin cancer, history of CVA with residual right-sided weakness, obesity with a previous history of sleep gastrectomy, COPD Last Myocardial Infarction Date:: 01/25/2006 History of Any Multi-Drug Resistant Organisms: None Reported Past Surgical History: Bariatric Surgery, Cholecystectomy, Heart Catheterization With Stent, Hernia Repair Additional Past Surgical History / Comment(s): Cyst removed from thyroid, HEART CATH WITH STENT X2, SURGERY FOR Thoracic Aortic Aneurysm, Ventral hernia repair with mesh July 2017. EGD, COLONOSCOPY. sleeve gastrectomy 05/19/18 (Dr. Jose Hamilton) Past Anesthesia/Blood Transfusion Reactions: Postoperative Nausea & Vomiting (PONV) Date of Last Stent Placement:: 2009 Past Psychological History: Depression Smoking Status: Former smoker Past Alcohol Use History: Occasional Past Drug Use History: Marijuana - Past Family History Father Family Medical History: COPD, Myocardial Infarction (AR) Mother Family Medical History: Hypertension Additional Family Medical History / Comment(s): Pacemaker, heart issues Sister(s) Family Medical History: Cancer Medications and Allergies Home Medications Medication Instructions Recorded Confirmed Type Citalopram Hydrobromide [CeleXA] 20 mg PO DAILY 05/01/16 12/29/20 History Umeclidinium [place] [Incruse 1 puff INHALATION RT-DAILY 11/07/17 12/29/20 History Ellipta] Atorvastatin [Lipitor] 20 mg PO DAILY 03/09/19 12/29/20 History amLODIPine BESYLATE 10 mg PO DAILY 03/09/19 12/29/20 History Albuterol Nebulized [Ventolin 2.5 mg INHALATION RT-TID PRN 09/14/20 12/29/20 History Nebulized] Formoterol Fumarate [Perforomist] 20 mcg INHALATION RT-DAILY 10/12/20 12/29/20 History Albuterol Sulfate [Proair Hfa] 2 puff INHALATION RT-QID PRN 12/04/20 12/29/20 History Metoprolol Tartrate [Lopressor] 25 mg PO BID #60 tab 12/06/20 12/29/20 Rx Budesonide [Pulmicort] 0.5 mg INHALATION RT-BID 12/29/20 12/29/20 History Allergies Allergy/AdvReac Type Severity Reaction Status Date / Time levofloxacin [From Levaquin] Allergy Rash/Hives Verified 12/29/20 07:51 Penicillins Allergy Rash/Hives Verified 12/29/20 07:51 Sulfa (Sulfonamide Allergy Rash/Hives Verified 12/29/20 07:51 Antibiotics) sulfamethoxazole Allergy Rash/Hives Verified 12/29/20 07:51 [From Bactrim] trimethoprim [From Bactrim] Allergy Rash/Hives Verified 12/29/20 07:51 Physical Exam Osteopathic Statement: *. No significant issues noted on an osteopathic structural exam other than those noted in the History and Physical/Consult. Vitals: Vital Signs Temp Pulse Pulse Resp BP BP Pulse Ox 12/29/20 08:36 95 16 111/65 97 12/29/20 08:12 96.4 F L 112 H 22 108/60 96 12/29/20 07:21 112 H 22 108/60 96 12/29/20 06:52 120 H 12/29/20 06:43 121 H 20 132/85 97 12/29/20 06:31 113 H 12/29/20 06:12 113 H 12/29/20 05:52 116 H 12/29/20 05:39 96.4 F L 113 H 24 172/88 94 L Intake and Output 12/28/20 12/29/20 12/29/20 22:59 06:59 14:59 Other: Weight 72.575 kg No acute distress, very sleepy and lethargic, does arouse, BiPAP mask in place. HEENT examination is grossly unremarkable. Neck supple. Full range of motion. No adenopathy thyromegaly or neck vein distention. Cardiovascular examination reveals regular rhythm rate. S1-S2 normal. No S3 or S4. No discernible murmur noted. Heart sounds are very distant. Heart rate 112 bpm. Lungs reveal diminished breath sounds bilaterally. Scattered rhonchi are noted. No wheezes. No crackles. Rest sounds equal bilaterally. Abdomen soft bowel sounds are heard. No masses or tenderness. Extremities are intact. No cyanosis clubbing or edema. Skin is without rash or lesion. Neurologic examination is difficult to assess because she so lethargic and sleepy. The patient does arouse and is appropriate. Results - Laboratory Findings CBC and BMP: 12/29/20 05:47 12/29/20 05:47 PT/INR, D-dimer PT 9.9 sec (9.0-12.0) 12/29/20 05:47 INR 0.9 (<1.2) 12/29/20 05:47 Abnormal lab findings: Abnormal Labs 12/29/20 12/29/20 12/29/20 05:47 05:47 05:47 WBC 12.2 H Neutrophils # 7.8 H APTT 19.5 L Chloride 109 H Creatinine 0.48 L Glucose 148 H Alkaline Phosphatase 27 L - Diagnostic Findings Chest x-ray: image reviewed Assessment and Plan Assessment: Acute on chronic hypoxemic and hypercapnic respiratory failure, multifactorial, in part related to underlying severe COPD, as well as sleep apnea syndrome. Stage III COPD, with an FEV1 percent that is 46. History of CAD. History of skin cancer. Prior history of CVA. History of hyperlipidemia. History of essential hypertension. History of myocardial infarction. Status post stenting of coronary artery. Status post thoracic aortic aneurysm endovascular stenting. Plan: Plan dated 12/29/2020. The patient apparently doing better. The patient was given duo nebs 4 times a day and when necessary. In addition, the patient was placed on Pulmicort 1 mg mixed with formoterol 20 g twice a day. The patient's getting Solu-Medrol. No antibiotics are necessary at this time. The patient will also need be watched very closely. Saturations are perfectly okay between 88-92%. She can come off the BiPAP at any time. Also, one needs to avoid any sedatives, hypnotics, narcotics, or tranquilizers. Depressed her respirations. Prognosis is guarded. Time with Patient: Greater than 30
[2020-12-29] MEDS: METOPROLOL TARTRATE 25 MG TAB PO SCH ×2 (10:04→20:21)
[2020-12-29] MEDS: amLODIPine 10 MG TAB PO SCH (10:06)
[2020-12-29] MEDS: ASPIRIN 81 MG PO SCH (10:07)
[2020-12-29] MEDS: CITALOPRAM HYDROBROMIDE 20 MG TAB PO SCH (10:07)
[2020-12-29] MEDS: ATORVASTATIN 20 MG TAB PO SCH (10:07)
[2020-12-29] MEDS: IPRATROPIUM-ALBUTEROL 3 ML NEB INHALATION SCH ×4 (11:21→20:32)
[2020-12-29] MEDS: FORMOTEROL FUMARATE 20 MCG/2 ML NEBU INHALATION SCH ×2 (11:22→20:32)
[2020-12-29] MEDS: BUDESONIDE 0.5 MG/2 ML NEBU INHALATION SCH ×2 (11:22→20:32)
[2020-12-29 11:43] LABS: Glucose,Whole Blood 176 mg/dL (75-99)
[2020-12-29] MEDS ORDERED: methylPREDNISolone SOD SUCCI 125 MG/2 ML VIAL IV SCH (12:00)
[2020-12-29] MEDS: INSULIN ASPART (NovoLOG) 100 UNIT/ML VIAL SQ SCH ×3 (12:10→20:20)
--- NOTE | 2020-12-29 13:06 | P.CRDCN ---
History of Present Illness Consult date: 12/29/20 History of present illness: HISTORY OF PRESENT ILLNESS: This is a 70-year-old female with a past medical history significant for coronary artery disease with previous stent placement in 2011 in 2013, COPD with home o2, hyperlipidemia, hypertension, and former nicotine dependence. Patient used to follow with Dr. Braxton but has not followed with him in many years, per patient. We have been asked to see the patient in consultation for hyperte nsion. Patient examined at the bedside. Patient states she has been feeling short of breath for the past 1-2 days. She states she was trying to do more breathing treatments at home so she did not hospital. She reports taking 5 breathing treatments yesterday with no improvement in her shortness of breath so she came to the emergency room for further evaluation. Patient was found to COPD exacerbation and was placed on IV steroids. Patient's blood pressure on admission to the hospital was elevated at 172/88. Repeat blood pressure this morning is 111/65. Patient denies any chest pain or pressure. She denies dizziness or lightheadedness. EKG reveals sinus tachycardia with a heart rate 116 Chest xray no acute findings Laboratory data: WBC 12.2. Hemoglobin 13.0. Platelet count 257. Sodium 141. Potassium 3.5. BUN 15. Creatinine 0.48. Troponin negative 1. BNP 181. Current home cardiac medications include amlodipine 10 mg daily and metoprolol tartrate 25 mg twice a day Most recent echocardiogram obtained in 2012 revealed normal LV function Cardiac catheterization history: April [address] Lopez secondary to Non-STEMI revealing patent stent to the circumflex. No additional critical coronary artery disease seen. REVIEW OF SYSTEMS: At the time of my exam: CONSTITUTIONAL: Denies fever or chills. HEENT: Denies blurred vision, vision changes, or eye pain. Denies hemoptysis CARDIOVASCULAR: Denies chest pain. Denies orthopnea. Denies PND. Denies palpitations RESPIRATORY: Reports shortness of breath. GASTROINTESTINAL: Denies abdominal pain. Denies nausea or vomiting. HEMATOLOGIC: Denies bleeding disorders. GENITOURINARY: Denies any blood in urine. SKIN: Denies pruitis. Denies rash. PHYSICAL EXAM: VITAL SIGNS: Reviewed. GENERAL: Well-developed in no acute distress. HEENT: Head is normocephalic. Pupils are equal, round. Sclerae anicteric. Mucous membranes of the mouth are moist. Neck supple. No JVD or thyromegaly LUNGS: Respirations even and unlabored. Lungs diminished bilaterally with scattered rhonchi and occasional expiratory wheezing. HEART: Regular rate and rhythm. S1 and S2 heard. ABDOMEN: Soft. Nondistended. Nontender. EXTREMITIES: Normal range of motion. No clubbing or cyanosis. Peripheral pulses intact. No lower extremity edema NEUROLOGIC: Awake and alert. Oriented x 3. ASSESSMENT: Shortness of breath Acute exacerbation of COPD Acute on chronic hypoxic and hypercapnic respiratory failure, on home O2 Coronary artery disease with previous stent placement in 2011 and 2013 per patient Hypertension Hyperlipidemia Former nicotine dependence PLAN: Obtain 2D echo to assess cardiac structure and function Resume home dose of Norvasc and metoprolol. No further anti-hypertensive medications need to be added as her blood pressure is well-controlled this morning Add aspirin 81 mg daily due to patient's history of coronary artery disease Further recommendations pending patient's course Nurse practitioner note has been reviewed by physician. Signing provider agrees with the documented findings, assessment, and plan of care. Past Medical History Past Medical History: Coronary Artery Disease (CAD), Cancer, COPD, CVA/TIA, Hyperlipidemia, Hypertension, Myocardial Infarction ([place]), Sleep Apnea/CPAP/BIPAP Additional Past Medical History / Comment(s): CAD, previous history of coronary stent, thoracic aortic aneurysm with previous endovascular stent grafting, remote history of tuberculosis back in 1985, twice a with an AHI of 21, not uti lizing her BiPAP, skin cancer, history of CVA with residual right-sided weakness, obesity with a previous history of sleep gastrectomy, COPD Last Myocardial Infarction Date:: 01/25/2006 History of Any Multi-Drug Resistant Organisms: None Reported Past Surgical History: Bariatric Surgery, Cholecystectomy, Heart Catheterization With Stent, Hernia Repair Additional Past Surgical History / Comment(s): Cyst removed from thyroid, HEART CATH WITH STENT X2, SURGERY FOR Thoracic Aortic Aneurysm, Ventral hernia repair with mesh July 2017. EGD, COLONOSCOPY. sleeve gastrectomy 05/19/18 (Dr. Jose Hamilton) Past Anesthesia/Blood Transfusion Reactions: Postoperative Nausea & Vomiting (PONV) Date of Last Stent Placement:: 2009 Past Psychological History: Depression Smoking Status: Former smoker Past Alcohol Use History: Occasional Additional Past Alcohol Use History / Comment(s): STARTED SMOKING AT AGE 15, QUIT IN 2013 SMOKED 1PPD. Past Drug Use History: Marijuana Additional Drug Use History / Comment(s): PAST HISTORY - Past Family History Father Family Medical History: COPD, Myocardial Infarction ([place]) Mother Family Medical History: Hypertension Additional Family Medical History / Comment(s): Pacemaker, heart issues Sister(s) Family Medical History: Cancer Medications and Allergies Home Medications Medication Instructions Recorded Confirmed Type Citalopram Hydrobromide [CeleXA] 20 mg PO DAILY 05/01/16 12/29/20 History Umeclidinium [place] [Incruse 1 puff INHALATION RT-DAILY 11/07/17 12/29/20 History Ellipta] Atorvastatin [Lipitor] 20 mg PO DAILY 03/09/19 12/29/20 History amLODIPine BESYLATE 10 mg PO DAILY 03/09/19 12/29/20 History Albuterol Nebulized [Ventolin 2.5 mg INHALATION RT-TID PRN 09/14/20 12/29/20 History Nebulized] Formoterol Fumarate [Perforomist] 20 mcg INHALATION RT-DAILY 10/12/20 12/29/20 History Albuterol Sulfate [Proair Hfa] 2 puff INHALATION RT-QID PRN 12/04/20 12/29/20 History Metoprolol Tartrate [Lopressor] 25 mg PO BID #60 tab 12/06/20 12/29/20 Rx Budesonide [Pulmicort] 0.5 mg INHALATION RT-BID 12/29/20 12/29/20 History Allergies Allergy/AdvReac Type Severity Reaction Status Date / Time levofloxacin [From Levaquin] Allergy Rash/Hives Verified 12/29/20 07:51 Penicillins Allergy Rash/Hives Verified 12/29/20 07:51 Sulfa (Sulfonamide Allergy Rash/Hives Verified 12/29/20 07:51 Antibiotics) sulfamethoxazole Allergy Rash/Hives Verified 12/29/20 07:51 [From Bactrim] trimethoprim [From Bactrim] Allergy Rash/Hives Verified 12/29/20 07:51 Physical Exam Vitals: Vital Signs Temp Pulse Pulse Resp BP BP Pulse Ox 12/29/20 12:00 69 73 20 131/65 97 12/29/20 11:39 73 16 12/29/20 11:38 73 16 12/29/20 11:26 71 16 12/29/20 08:36 95 16 111/65 97 12/29/20 08:12 96.4 F L 112 H 22 108/60 96 12/29/20 07:21 112 H 22 108/60 96 12/29/20 06:52 120 H 12/29/20 06:43 121 H 20 132/85 97 12/29/20 06:31 113 H 12/29/20 06:12 113 H 12/29/20 05:52 116 H 12/29/20 05:39 96.4 F L 113 H 24 172/88 94 L Intake and Output 12/28/20 12/29/20 12/29/20 22:59 06:59 14:59 Intake Total 240 Output Total 50 Balance 190 Intake: Oral 240 Output: Urine 50 Other: Weight 72.575 kg 68.039 kg Results 12/29/20 05:47 12/29/20 05:47 Cardiac Enzymes 12/29/20 12/29/20 Range/Units 05:47 05:47 AST 20 (14-36) U/L Troponin I <0.012 (0.000-0.034) ng/mL Coagulation 12/29/20 Range/Units 05:47 PT 9.9 (9.0-12.0) sec APTT 19.5 L (22.0-30.0) sec CBC 12/29/20 Range/Units 05:47 WBC 12.2 H (3.8-10.6) k/uL RBC 4.03 (3.80-5.40) m/uL Hgb 13.0 (11.4-16.0) gm/dL Hct 39.1 (34.0-46.0) % Plt Count 257 (150-450) k/uL Comprehensive Metabolic Panel 12/29/20 Range/Units 05:47 Sodium 141 (137-145) mmol/L Potassium 3.5 (3.5-5.1) mmol/L Chloride 109 H (98-107) mmol/L Carbon Dioxide 27 (22-30) mmol/L BUN 15 (7-17) mg/dL Creatinine 0.48 L (0.52-1.04) mg/dL Glucose 148 H (74-99) mg/dL Calcium 8.7 (8.4-10.2) mg/dL AST 20 (14-36) U/L ALT 11 (4-34) U/L Alkaline Phosphatase 27 L (38-126) U/L Total Protein 6.4 (6.3-8.2) g/dL Albumin 4.0 (3.5-5.0) g/dL Current Medications Generic Name Dose Route Start Last Admin Trade Name Freq PRN Reason Stop Dose Admin Albuterol/Ipratropium 3 ml 12/29/20 08:00 12/29/20 11:21 Ipratropium-Albuterol 3 Ml Neb INHALATION 3 ml RT-QID BRE Administration Albuterol/Ipratropium 3 ml 12/29/20 07:53 Ipratropium-Albuterol 3 Ml Neb INHALATION RT-Q2H PRN Shortness Of Breath Or Wheezing Amlodipine Besylate 10 mg 12/29/20 09:45 12/29/20 10:06 Amlodipine 10 Mg Tab PO 10 mg DAILY BRE Administration Aspirin 81 mg 12/29/20 10:00 12/29/20 10:07 Aspirin 81 Mg PO 81 mg DAILY BRE Administration Atorvastatin Calcium 20 mg 12/29/20 10:15 12/29/20 10:07 Atorvastatin 20 Mg Tab PO 20 mg DAILY BRE Administration Budesonide 0.5 mg 12/29/20 08:00 12/29/20 11:22 Budesonide 0.5 Mg/2 Ml Nebu INHALATION 0.5 mg RT-BID BRE Administration Citalopram Hydrobromide 20 mg 12/29/20 10:15 12/29/20 10:07 Citalopram Hydrobromide 20 Mg Tab PO 20 mg DAILY BRE Administration Formoterol Fumarate 20 mcg 12/29/20 08:00 12/29/20 11:22 Formoterol Fumarate 20 Mcg/2 Ml Nebu INHALATION 20 mcg RT-BID BRE Administration Sodium Chloride 1,000 mls @ 100 mls/hr 12/29/20 06:30 12/29/20 06:45 Saline 0.9% IV 100 mls/hr .Q10H BRE Administration Insulin Aspart 0 unit 12/29/20 12:30 12/29/20 12:10 Insulin Aspart (Novolog) 100 Unit/Ml Vial SQ 4 unit ACHS BRE Administration Protocol Methylprednisolone Sodium Succinate 60 mg 12/29/20 12:00 12/29/20 12:08 Methylprednisolone Sod Succi 125 Mg/2 Ml Vial IV 60 mg Q6HR BRE Administration Metoprolol Tartrate 25 mg 12/29/20 09:45 12/29/20 10:04 Metoprolol Tartrate 25 Mg Tab PO 25 mg BID BRE Administration Naloxone HCl 0.2 mg 12/29/20 06:22 Naloxone 0.4 Mg/Ml 1 Ml Vial IV Q2M PRN Opioid Reversal Ondansetron HCl 4 mg 12/29/20 06:22 Ondansetron 4 Mg/2 Ml Vial IVP Q8HR PRN Nausea And Vomiting Intake and Output 12/28/20 12/29/20 12/29/20 22:59 06:59 14:59 Intake Total 240 Output Total 50 Balance 190 Intake: Oral 240 Output: Urine 50 Other: Weight 72.575 kg 68.039 kg Patient Weight 12/30/20 06:59 Weight 68.039 kg 12/29/20 05:47 12/29/20 05:47
--- NOTE | 2020-12-29 16:20 | P.HPIM ---
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 Chronic stable medical conditions include coronary artery disease with stent, some mild right-sided weakness from prior stroke, hypertension, hyperlipidemia, obstructive sleep apnea uses CPAP machine, TB in 1985, hiatal hernia, surgery for thoracic aortic aneurysm, sleep gastrectomy in [address] Hamilton. Patient now presents with 1 day of increasing shortness of breath. Wheezing cough. Minimal sputum. Poor appetite. No fever no chills. Tired , rundown. Did feel a bit better with steroids and bronchodilators. Review of systems: GEN.: Tired EYES: None HEENT: None NECK: None RESPIRATORY: As above CARDIOVASCULAR: None GASTROINTESTINAL: None GENITOURINARY: None MUSCULOSKELETAL: None LYMPHATICS: None HEMATOLOGICAL: None PSYCHIATRY: None NEUROLOGICAL: None Past medical history to include: Coronary artery disease with stent, COPD, stroke with some mild right-sided weakness, hyperlipidemia, hypertension, obstructive sleep apnea uses CPAP, TB 1985, hiatal hernia, sleep gastrectomy in 2018, surgery for thoracic aortic aneurysm Social history: Started smoking age of 15 stopped in 2011. One pack a day. Alcohol occasionally. Lives with her grandson. Occasionally uses a cane or a walker. Physical examination: VITAL SIGNS: 96.4, 112, 22, 108/60, 96% on BiPAP GENERAL: BMI 25.7, reclining in bed, some shortness of breath EYES: Pupils equal. Conjunctiva normal. HEENT: External appearance of nose and ears normal, oral cavity grossly normal. NECK: JVD not raised; masses not palpable. HEART: First and second heart sounds are normal; no edema. LUNGS:[ Respiratory rate increased, decreased breath sounds prolonged expiration. ABDOMEN: Soft, nontender, liver spleen not palpable, no masses palpable. PSYCH: Alert and oriented x3; mood and affect anxious NEUROLOGICAL: Cranial nerves grossly intact; no facial asymmetry, mild right hemiparesis LYMPHATICS: No lymph nodes palpable in the axilla and neck INVESTIGATIONS, reviewed in the clinical context: WBC 12.2 hemoglobin 13 potassium 3.5 crit 0.48 Troponin I less than 0.012. ProBNP 181 Coronavirus [PCR] not detected EKG tracing personally reviewed by me-normal sinus rhythm Chest x-ray film personally reviewed by me-no infiltrates. Endovascular stent graft in the aorta Assessment and plan: -Acute severe COPD exacerbation in an ex-smoker- started on bronchodilators, IV and inhaled steroids. Long-acting beta agonist. -Coronary artery disease with stent continue with Lopressor, Lipitor -Mild right hemiparesis from prior stroke -Hyperlipidemia, continue with Lipitor -Essential hypertension, continue with amlodipine, Lopressor -Obstructive sleep apnea uses CPAP , continue the same -Hiatal hernia -History of sleeve gastrectomy -Depression not otherwise specified, continue Celexa -DVT prophylaxis , Subcu Lovenox -Lower extremity edema secondary to amlodipine. KOLE stockings. Care was discussed with the patient. Pulmonary consulted. Home medications resumed. Lovenox for DVT prophylaxis Given the complexity and severity of patient's condition expect the patient to be in the hospital at least for 2 overnights Past Medical History Past Medical History: Coronary Artery Disease (CAD), Cancer, COPD, CVA/TIA, Hyperlipidemia, Hypertension, Myocardial Infarction ([place]), Sleep Apnea/CPAP/BIPAP Additional Past Medical History / Comment(s): CAD, previous history of coronary stent, thoracic aortic aneurysm with previous endovascular stent grafting, remote history of tuberculosis back in 1985, twice a with an AHI of 21, not utilizing her BiPAP, skin cancer, history of CVA with residual right-sided weakness, obesity with a previous history of sleep gastrectomy, COPD Last Myocardial Infarction Date:: 01/25/2006 History of Any Multi-Drug Resistant Organisms: None Reported Past Surgical History: Bariatric Surgery, Cholecystectomy, Heart Catheterization With Stent, Hernia Repair Additional Past Surgical History / Comment(s): Cyst removed from thyroid, HEART CATH WITH STENT X2, SURGERY FOR Thoracic Aortic Aneurysm, Ventral hernia repair with mesh July 2017. EGD, COLONOSCOPY. sleeve gastrectomy 05/19/18 (Dr. Jose Hamilton) Past Anesthesia/Blood Transfusion Reactions: Postoperative Nausea & Vomiting (PO NV) Date of Last Stent Placement:: 2009 Past Psychological History: Depression Smoking Status: Former smoker Past Alcohol Use History: Occasional Additional Past Alcohol Use History / Comment(s): STARTED SMOKING AT AGE 15, QUIT IN 2013 SMOKED 1PPD. Past Drug Use History: Marijuana Additional Drug Use History / Comment(s): PAST HISTORY - Past Family History Father Family Medical History: COPD, Myocardial Infarction ([place]) Mother Family Medical History: Hypertension Additional Family Medical History / Comment(s): Pacemaker, heart issues Sister(s) Family Medical History: Cancer Medications and Allergies Home Medications Medication Instructions Recorded Confirmed Type Citalopram Hydrobromide [CeleXA] 20 mg PO DAILY 05/01/16 12/29/20 History Umeclidinium Cooter [Incruse 1 puff INHALATION RT-DAILY 11/07/17 12/29/20 History Ellipta] Atorvastatin [Lipitor] 20 mg PO DAILY 03/09/19 12/29/20 History amLODIPine BESYLATE 10 mg PO DAILY 03/09/19 12/29/20 History Albuterol Nebulized [Ventolin 2.5 mg INHALATION RT-TID PRN 09/14/20 12/29/20 History Nebulized] Formoterol Fumarate [Perforomist] 20 mcg INHALATION RT-DAILY 10/12/20 12/29/20 History Albuterol Sulfate [Proair Hfa] 2 puff INHALATION RT-QID PRN 12/04/20 12/29/20 History Metoprolol Tartrate [Lopressor] 25 mg PO BID #60 tab 12/06/20 12/29/20 Rx Budesonide [Pulmicort] 0.5 mg INHALATION RT-BID 12/29/20 12/29/20 History Allergies Allergy/AdvReac Type Severity Reaction Status Date / Time levofloxacin [From Levaquin] Allergy Rash/Hives Verified 12/29/20 07:51 Penicillins Allergy Rash/Hives Verified 12/29/20 07:51 Sulfa (Sulfonamide Allergy Rash/Hives Verified 12/29/20 07:51 Antibiotics) sulfamethoxazole Allergy Rash/Hives Verified 12/29/20 07:51 [From Bactrim] trimethoprim [From Bactrim] Allergy Rash/Hives Verified 12/29/20 07:51 Physical Exam Vitals: Vital Signs Temp Pulse Pulse Resp BP BP Pulse Ox 12/29/20 12:00 69 73 20 131/65 97 12/29/20 11:39 73 16 12/29/20 11:38 73 16 12/29/20 11:26 71 16 12/29/20 08:36 95 16 111/65 97 12/29/20 08:12 96.4 F L 112 H 22 108/60 96 12/29/20 07:21 112 H 22 108/60 96 06/10/21 06:52 120 H 12/29/20 06:43 121 H 20 132/85 97 12/29/20 06:31 113 H 12/29/20 06:12 113 H 12/29/20 05:52 116 H 12/29/20 05:39 96.4 F L 113 H 24 172/88 94 L Intake and Output 12/29/20 12/29/20 12/29/20 06:59 14:59 22:59 Intake Total 720 Output Total 50 Balance 670 Intake: Oral 720 Output: Urine 50 Other: Weight 72.575 kg 68.039 kg Results CBC & Chem 7: 12/29/20 05:47 12/29/20 05:47 Labs: Abnormal Lab Results - Last 24 Hours (Table) 12/29/20 12/29/20 12/29/20 Range/Units 05:47 05:47 05:47 WBC 12.2 H (3.8-10.6) k/uL Neutrophils # 7.8 H (1.3-7.7) k/uL APTT 19.5 L (22.0-30.0) sec Chloride 109 H (98-107) mmol/L Creatinine 0.48 L (0.52-1.04) mg/dL Glucose 148 H (74-99) mg/dL POC Glucose (mg/dL) (75-99) mg/dL Alkaline Phosphatase 27 L (38-126) U/L 12/29/20 Range/Units 11:41 WBC (3.8-10.6) k/uL Neutrophils # (1.3-7.7) k/uL APTT (22.0-30.0) sec Chloride (98-107) mmol/L Creatinine (0.52-1.04) mg/dL Glucose (74-99) mg/dL POC Glucose (mg/dL) 176 H (75-99) mg/dL Alkaline Phosphatase (38-126) U/L Thrombosis Risk Factor Assmnt - Choose All That Apply Each Factor Represents 1 point: Obesity (BMI >25) Each Risk Factor Represents 2 Points: Age 61-74 years Thrombosis Risk Factor Assessment Total Risk Factor Score: 3 Thrombosis Risk Factor Assessment Level: Moderate Risk
[2020-12-29 16:44] LABS: Glucose,Whole Blood 124 mg/dL (75-99)
[2020-12-29 20:03] LABS: Glucose,Whole Blood 139 mg/dL (75-99)
[2020-12-29] MEDS: methylPREDNISolone SOD SUCCI 40 MG/ML 1 ML VIAL IV SCH (23:41)
[2020-12-30] MEDS: IPRATROPIUM-ALBUTEROL 3 ML NEB INHALATION PRN (01:01)
[2020-12-30] MEDS: SODIUM CHLORIDE 0.9% 1,000 ML IV SCH (02:30)
[2020-12-30] MEDS: INSULIN ASPART (NovoLOG) 100 UNIT/ML VIAL SQ SCH ×4 (06:26→20:56)
[2020-12-30 06:30] LABS: Glucose,Whole Blood 108 mg/dL (75-99)
[2020-12-30] MEDS: FORMOTEROL FUMARATE 20 MCG/2 ML NEBU INHALATION SCH ×2 (08:26→20:52)
[2020-12-30] MEDS: IPRATROPIUM-ALBUTEROL 3 ML NEB INHALATION SCH ×4 (08:26→20:52)
[2020-12-30] MEDS: BUDESONIDE 0.5 MG/2 ML NEBU INHALATION SCH ×2 (08:26→20:52)
--- NOTE | 2020-12-30 09:01 | P.PN ---
Subjective Progress Note Date: 12/30/20 Principal diagnosis: Shortness of breath. Pulmonary consult dated 12/29/2020. 70-year-old female, who apparently presented to the emergency department, December 29, at 5:30 in the morning. She apparently called EMS because of severe onset of shortness of breath. She apparently was quite hypoxemic, and was difficult to arouse. Her saturations were low. She was placed on BiPAP in transfer. Currently, the patient is in the emergency department, and trauma to room. She is on BiPAP, with settings of IPAP 14, EPAP 5, at 50%. She's getting saline running at KVO. She was recently in the hospital for similar episode between December 04 of December 06. Seen by my partner and by myself. Again, because she's somewhat lethargic, she is not a particularly good historian at this time. She has a history of CAD, COPD, CVA, hyperlipidemia, hypertension, myocardial infarction, sleep apnea syndrome, coronary stenting, thoracic aortic aneurysm endovascular stenting, remote history of tuberculosis, skin cancer, and obesity. She was a former smoker. She does use marijuana occasionally. White count 12.2, hemoglobin hematocrit and platelet count normal. PT/INR is normal. Sodium 141, potassium 3.5, chlorides 109, CO2 27, anion gap 5, BUN 15, and creatinine 0.48. Chest x-ray, shows no acute or abnormal findings. Progress note dated 12/30/2020. 70-year-old female admitted to the emergency department with shortness of breath. Patient was brought in by EMS because of severe sudden shortness of breath. Apparently she was quite hypoxemic. Her saturations were low, she was placed on BiPAP. Today, she looks like a completely different person. She did not use of BiPAP last night. She's in a couple liters of oxygen. She feels completely back to baseline and would like to be discharged home. 2 L saturation 98%, blood pressure 140/83, respiratory rate 16, heart rate 65, and temperature 98.3. No new labs today as yet. Objective - Vital Signs Vital signs: Vital Signs Temp 98.3 F 12/30/20 08:45 Pulse 65 12/30/20 08:45 Resp 16 12/30/20 08:45 BP 148/83 12/30/20 08:45 Pulse Ox 98 12/30/20 08:45 Intake & Output 12/29/20 12/30/20 12/30/20 18:59 06:59 18:59 Intake Total 960 840 Output Total 50 Balance 910 840 Weight 68.039 kg 69.8 kg Intake: Intake, IV Titration 600 Amount Sodium Chloride 0.9% 1, 600 000 ml @ 100 mls/hr IV . Q10H BRE Rx#:[id number] Oral 960 240 Output: Urine 50 Other: # Voids 1 2 - Exam No acute distress, awake and alert, currently on 2 L. No use of accessory muscles or conversational dyspnea. HEENT examination is grossly unremarkable. Neck supple. Full range of motion. No adenopathy thyromegaly or neck vein d istention. Cardiovascular examination reveals regular rhythm rate. S1-S2 normal. No S3 or S4. No discernible murmur noted. Heart sounds are very distant. Heart rate 68 bpm. Lungs reveal diminished breath sounds bilaterally. Scattered rhonchi are noted. No wheezes. No crackles. Breath sounds are equal bilaterally. Abdomen soft bowel sounds are heard. No masses or tenderness. Extremities are intact. No cyanosis clubbing or edema. Skin is without rash or lesion. Neurologic examination is brief but nonfocal. The patient's very awake and alert. - Labs CBC & Chem 7: 12/29/20 05:47 12/29/20 05:47 Labs: Abnormal Lab Results - Last 24 Hours (Table) 12/29/20 12/29/20 12/29/20 Range/Units 11:41 16:42 19:59 POC Glucose (mg/dL) 176 H 124 H 139 H (75-99) mg/dL 12/30/20 Range/Units 06:04 POC Glucose (mg/dL) 108 H (75-99) mg/dL Assessment and Plan Assessment: Acute on chronic hypoxemic and hypercapnic respiratory failure, multifactorial, in part related to underlying severe COPD, as well as sleep apnea syndrome, much improved on 12/30/2020. Stage III COPD, with an FEV1 percent that is 46. History of CAD. History of skin cancer. Prior history of CVA. History of hyperlipidemia. History of essential hypertension. History of myocardial infarction. Status post stenting of coronary artery. Status post thoracic aortic aneurysm endovascular stenting. Plan: Plan dated 12/29/2020. The patient apparently doing better. The patient was given duo nebs 4 times a day and when necessary. In addition, the patient was placed on Pulmicort 1 mg mixed with formoterol 20 g twice a day. The patient's getting Solu-Medrol. No antibiotics are necessary at this time. The patient will also need be watched very closely. Saturations are perfectly okay between 88-92%. She can come off the BiPAP at any time. Also, one needs to avoid any sedatives, hypnotics, narcotics, or tranquilizers. Depressed her respirations. Prognosis is guarded. Plan dated 12/30/2020. The patient did not use BiPAP last night. Currently, she is on 2 L nasal cannula. Her saturations are excellent. She is awake and alert. She would like to be discharged home. I believe that certainly reasonable. The patient will follow-up in the office. She sees one of my partners. No additional recommendations at this time. Time with Patient: Less than 30
[2020-12-30] MEDS: METOPROLOL TARTRATE 25 MG TAB PO SCH ×2 (09:11→21:01)
[2020-12-30] MEDS: ASPIRIN 81 MG PO SCH (09:11)
[2020-12-30] MEDS: ATORVASTATIN 20 MG TAB PO SCH (09:11)
[2020-12-30] MEDS: amLODIPine 10 MG TAB PO SCH (09:11)
[2020-12-30] MEDS: CITALOPRAM HYDROBROMIDE 20 MG TAB PO SCH (09:11)
[2020-12-30] MEDS: methylPREDNISolone SOD SUCCI 40 MG/ML 1 ML VIAL IV SCH ×2 (09:11→16:07)
[2020-12-30 12:05] LABS: Glucose,Whole Blood 96 mg/dL (75-99)
--- NOTE | 2020-12-30 12:54 | P.PN ---
Subjective Progress Note Date: 12/30/20 HISTORY OF PRESENT ILLNESS: This is a 70-year-old female with a past medical history significant for coronary artery disease with previous stent placement in 2012 in 2013, COPD with home o2, hyperlipidemia, hypertension, and former nicotine dependence. Patient used to follow with Dr. Braxton but has not followed with him in many years, per patient. We have been asked to see the patient in consultation for hypertension. Patient examined at the bedside. Patient states she has been feeling short of breath for the past 1-2 days. She states she was trying to do more breathing treatments at home so she did not hospital. She reports taking 5 breathing treatments yesterday with no improvement in her shortness of breath so she came to the emergency room for further evaluation. Patient was found to COPD exacerbation and was placed on IV steroids. Patient's blood pressure on admission to the hospital was elevated at 172/88. Repeat blood pressure this morning is 111/65. Patient denies any chest pain or pressure. She denies dizziness or lightheadedness. EKG reveals sinus tachycardia with a heart rate 116 Chest xray no acute findings Laboratory data: WBC 12.2. Hemoglobin 13.0. Platelet count 257. Sodium 141. Potassium 3.5. BUN 15. Creatinine 0.48. Troponin negative 1. BNP 181. Current home cardiac medications include amlodipine 10 mg daily and metoprolol tartrate 25 mg twice a day Most recent echocardiogram obtained in 2012 revealed normal LV function Cardiac catheterization history: April [address] Lopez secondary to Non-STEMI revealing patent stent to the circumflex. No additional critical coronary artery disease seen. 12/30/2020 Patient examined this morning at the bedside. Patient denies chest pain or pressure. She states her shortness of breath has improved. She remains on nasal cannula. Patient remains on IV steroids. Blood pressure has been well- controlled. PHYSICAL EXAM: VITAL SIGNS: Reviewed. GENERAL: Well-developed in no acute distress. HEENT: Head is normocephalic. Pupils are equal, round. Sclerae anicteric. Mucous membranes of the mouth are moist. Neck supple. No JVD or thyromegaly LUNGS: Respirations even and unlabored. Lungs diminished bilaterally with scattered rhonchi. HEART: Regular rate and rhythm. S1 and S2 heard. ABDOMEN: Soft. Nondistended. Nontender. EXTREMITIES: Normal range of motion. No clubbing or cyanosis. Peripheral pulses intact. No lower extremity edema NEUROLOGIC: Awake and alert. Oriented x 3. ASSESSMENT: Shortness of breath Acute exacerbation of COPD Acute on chronic hypoxic and hypercapnic respiratory failure, on home O2 Coronary artery disease with previous stent placement in 2011 and 2013 per patient Hypertension Hyperlipidemia Former nicotine dependence PLAN: 2-D echo ordered. Await results Continue current cardiac medications Patient is stable from a cardiac standpoint. We will follow on an as needed basis. Please call with questions or concerns Nurse practitioner note has been reviewed by physician. Signing provider agrees with the documented findings, assessment, and plan of care. Objective - Vital Signs Vital signs: Vital Signs Temp 98.3 F 12/30/20 08:45 Pulse 52 L 12/30/20 11:48 Resp 18 12/30/20 11:48 BP 151/76 12/30/20 11:48 Pulse Ox 97 12/30/20 11:48 Intake & Output 12/29/20 12/30/20 12/30/20 18:59 06:59 18:59 Intake Total 960 840 240 Output Total 50 Balance 910 840 240 Weight 68.039 kg 69.8 kg Intake: Intake, IV Titration 600 Amount Sodium Chloride 0.9% 1, 600 000 ml @ 100 mls/hr IV . Q10H BRE Rx#:[id number] Oral 960 240 240 Output: Urine 50 Other: # Voids 1 2 1 - Labs CBC & Chem 7: 12/29/20 05:47 12/29/20 05:47 Labs: Abnormal Lab Results - Last 24 Hours (Table) 12/29/20 12/29/20 12/30/20 Range/Units 16:42 19:59 06:04 POC Glucose (mg/dL) 124 H 139 H 108 H (75-99) mg/dL
[2020-12-30 16:56] LABS: Glucose,Whole Blood 91 mg/dL (75-99)
--- NOTE | 2020-12-30 20:08 | P.PN ---
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 Chronic stable medical conditions include coronary artery disease with stent, some mild right-sided weakness from prior stroke, hypertension, hyperlipidemia, obstructive sleep apnea uses CPAP machine, TB in 1985, hiatal hernia, surgery for thoracic aortic aneurysm, sleep gastrectomy in [address] Hamilton. Patient now presents with 1 day of increasing shortness of breath. Wheezing cough. Minimal sputum. Poor appetite. No fever no chills. Tired , rundown. Did feel a bit better with steroids and bronchodilators. Admitted with COPD exacerbation. Started on bronchodilators, steroids, inhaled steroids. Today: Breathing better. Wheezing improved. Oral intake better. Laying in bed Review of systems: Was done for constitutional, cardiovascular, GI, pulmonary. relevant finding as above Active Medications Albuterol/Ipratropium (Ipratropium-Albuterol 3 Ml Neb) 3 ml INHALATION RT-QID [facility] Last Admin: 12/30/20 16:08 Dose: 3 ml Documented by: Albuterol/Ipratropium (Ipratropium-Albuterol 3 Ml Neb) 3 ml INHALATION RT-Q2H PRN PRN Reason: Shortness Of Breath Or Wheezing Last Admin: 12/30/20 01:01 Dose: 3 ml Documented by: Amlodipine Besylate (Amlodipine 10 Mg Tab) 10 mg PO DAILY [facility] Last Admin: 12/30/20 09:11 Dose: 10 mg Documented by: Aspirin (Aspirin 81 Mg) 81 mg PO DAILY [facility] Last Admin: 12/30/20 09:11 Dose: 81 mg Documented by: Atorvastatin Calcium (Atorvastatin 20 Mg Tab) 20 mg PO DAILY [facility] Last Admin: 12/30/20 09:11 Dose: 20 mg Documented by: Budesonide (Budesonide 0.5 Mg/2 Ml Nebu) 0.5 mg INHALATION RT-BID [facility] Last Admin: 12/30/20 08:26 Dose: 0.5 mg Documented by: Citalopram Hydrobromide (Citalopram Hydrobromide 20 Mg Tab) 20 mg PO DAILY [facility] Last Admin: 12/30/20 09:11 Dose: 20 mg Documented by: Formoterol Fumarate (Formoterol Fumarate 20 Mcg/2 Ml Nebu) 20 mcg INHALATION RT-BID [facility] Last Admin: 12/30/20 08:26 Dose: 20 mcg Documented by: Insulin Aspart (Insulin Aspart (Novolog) 100 Unit/Ml Vial) 0 unit SQ [facility]; Protocol Last Admin: 12/30/20 17:02 Dose: Not Given Documented by: Methylprednisolone Sodium Succinate (Methylprednisolone Sod Succi 40 Mg/Ml 1 Ml Vial) 40 mg IV Q8HR [facility] Last Admin: 12/30/20 16:07 Dose: 40 mg Documented by: Metoprolol Tartrate (Metoprolol Tartrate 25 Mg Tab) 25 mg PO BID [facility] Last Admin: 12/30/20 09:11 Dose: 25 mg Documented by: Naloxone HCl (Naloxone 0.4 Mg/Ml 1 Ml Vial) 0.2 mg IV Q2M PRN PRN Reason: Opioid Reversal Ondansetron HCl (Ondansetron 4 Mg/2 Ml Vial) 4 mg IVP Q8HR PRN PRN Reason: Nausea And Vomiting Last Admin: 12/30/20 17:22 Dose: 4 mg Documented by: Past medical history to include: Coronary artery disease with stent, COPD, stroke with some mild right-sided weakness, hyperlipidemia, hypertension, obstructive sleep apnea uses CPAP, TB 1985, hiatal hernia, sleep gastrectomy in 2017, surgery for thoracic aortic aneurysm Social history: Started smoking age of 15 stopped in 2011. One pack a day. Alcohol occasionally. Lives with her grandson. Occasionally uses a cane or a walker. Physical examination: VITAL SIGNS: 98.1, 60, 18, 135/77, 96% on 2 L GENERAL: Declining in bed, breathing improved EYES: Pupils equal. Conjunctiva normal. NECK: JVD not raised; masses not palpable. HEART: First and second heart sounds are normal; no edema. LUNGS:[ Respiratory rate increased, decreased breath sounds ABDOMEN: Soft, nontender, liver spleen not palpable, no masses palpable. PSYCH: Alert and oriented x3; mood and affect anxious NEUROLOGICAL: Cranial nerves grossly intact; no facial asymmetry, mild right hemiparesis INVESTIGATIONS, reviewed in the clinical context: WBC 12.2 hemoglobin 13 potassium 3.5 crit 0.48 Troponin I less than 0.012. ProBNP 181 Coronavirus [PCR] not detected EKG tracing personally reviewed by me-normal sinus rhythm Chest x-ray film personally reviewed by me-no infiltrates. Endovascular stent graft in the aorta Assessment and plan: -Acute severe COPD exacerbation in an [id number] on bronchodilators, IV and inhaled steroids. Long-acting beta agonist. -Coronary artery disease with stent continue with Lopressor, Lipitor -Mild right hemiparesis from prior stroke -Hyperlipidemia, continue with Lipitor -Essential hypertension, continue with amlodipine, Lopressor -Obstructive sleep apnea uses CPAP , continue the same -Hiatal hernia -History of sleeve gastrectomy -Depression not otherwise specified, continue Celexa -DVT prophylaxis , Subcu Lovenox -Lower extremity edema secondary to amlodipine. KOLE stockings. Doing better. Encouraged the patient to be out of bed. We will change to oral prednisone in the morning. Hopefully discharge tomorrow. Discussed with the patient.
[2020-12-30 20:50] LABS: Glucose,Whole Blood 112 mg/dL (75-99)
[2020-12-30] MEDS: ENOXAPARIN 40 MG/0.4 ML SYRINGE SQ SCH (21:01)
[2020-12-31] MEDS: IPRATROPIUM-ALBUTEROL 3 ML NEB INHALATION PRN (01:05)
--- NOTE | 2020-12-31 05:17 | P.PN ---
Subjective Progress Note Date: 12/31/20 Principal diagnosis: Shortness of breath. Pulmonary consult dated 12/29/2020. 70-year-old female, who apparently presented to the emergency department, December 29, at 5:30 in the morning. She apparently called EMS because of severe onset of shortness of breath. She apparently was quite hypoxemic, and was difficult to arouse. Her saturations were low. She was placed on BiPAP in transfer. Currently, the patient is in the emergency department, and trauma to room. She is on BiPAP, with settings of IPAP 14, EPAP 5, at 50%. She's getting saline running at KVO. She was recently in the hospital for similar episode between December 04 of December 06. Seen by my partner and by myself. Again, because she's somewhat lethargic, she is not a particularly good historian at this time. She has a history of CAD, COPD, CVA, hyperlipidemia, hypertension, myocardial infarction, sleep apnea syndrome, coronary stenting, thoracic aortic aneurysm endovascular stenting, remote history of tuberculosis, skin cancer, and obesity. She was a former smoker. She does use marijuana occasionally. White count 12.2, hemoglobin hematocrit and platelet count normal. PT/INR is normal. Sodium 141, potassium 3.5, chlorides 109, CO2 27, anion gap 5, BUN 15, and creatinine 0.48. Chest x-ray, shows no acute or abnormal findings. Progress note dated 12/30/2020. 70-year-old female admitted to the emergency department with shortness of breath. Patient was brought in by EMS because of severe sudden shortness of breath. Apparently she was quite hypoxemic. Her saturations were low, she was placed on BiPAP. Today, she looks like a completely different person. She did not use of BiPAP last night. She's in a couple liters of oxygen. She feels completely back to baseline and would like to be discharged home. 2 L saturation 98%, blood pressure 140/83, respiratory rate 16, heart rate 65, and temperature 98.3. No new labs today as yet. Progress note dated 12/31/2020. 70-year-old female, admitted to the hospital with shortness of breath. She was brought in by EMS. She was quite hypoxemic and initially required BiPAP therapy. Currently, she is on 2 L. She was sleeping when I handed the room. She was in no distress. She's not receiving any IV fluids. There is no conversational dyspnea or use of accessory muscles. Vital signs are stable and included temperature 90.8, heart rate 61, respiratory rate 17, blood pressure 151/75, and at 2 L saturation is 97%. Objective - Vital Signs Vital signs: Vital Signs Temp 98.0 F 12/31/20 04:00 Pulse 61 12/31/20 04:00 Resp 17 12/31/20 04:00 BP 151/75 12/31/20 04:00 Pulse Ox 97 12/31/20 04:00 Intake & Output 12/30/20 12/30/20 12/31/20 06:59 18:59 06:59 Intake Total 840 480 Balance 840 480 Weight 69.8 kg Intake: Intake, IV Titration 600 Amount Sodium Chloride 0.9% 1, 600 000 ml @ 100 mls/hr IV . Q10H BRE Rx#:[id number] Oral 240 480 Other: # Voids 2 1 0 - Exam No acute distress, awake and alert, currently on 2 L. No use of accessory muscles or conversational dyspnea. HEENT examination is grossly unremarkable. Neck supple. Full range of motion. No adenopathy thyromegaly or neck vein distention. Cardiovascular examination reveals regular rhythm rate. S1-S2 normal. No S3 or S4. No discernible murmur noted. Heart sounds are very distant. Heart rate 61 bpm. Lungs reveal diminished breath sounds bilaterally. Scattered rhonchi are noted. No wheezes. No crackles. Breath sounds are equal bilaterally. Breath sounds have significantly improved. Abdomen soft bowel sounds are heard. No masses or tenderness. Extremities are intact. No cyanosis clubbing or edema. Skin is without rash or lesion. Neurologic examination is brief but nonfocal. - Labs CBC & Chem 7: 12/29/20 05:47 12/29/20 05:47 Labs: Abnormal Lab Results - Last 24 Hours (Table) 12/30/20 12/30/20 Range/Units 06:04 20:48 POC Glucose (mg/dL) 108 H 112 H (75-99) mg/dL Assessment and Plan Assessment: Acute on chronic hypoxemic and hypercapnic respiratory failure, multifactorial, in part related to underlying severe COPD, as well as sleep apnea syndrome, much improved on 12/31/2020. Stage III COPD, with an FEV1 percent that is 46. History of CAD. History of skin cancer. Prior history of CVA. History of hyperlipidemia. History of essential hypertension. History of myocardial infarction. Status post stenting of coronary artery. Status post thoracic aortic aneurysm endovascular stenting. Plan: Plan dated 12/29/2020. The patient apparently doing better. The patient was given duo nebs 4 times a day and when necessary. In addition, the patient was placed on Pulmicort 1 mg mixed with formoterol 20 g twice a day. The patient's getting Solu-Medrol. No antibiotics are necessary at this time. The patient will also need be watched very closely. Saturations are perfectly okay between 88-92%. She can come off the BiPAP at any time. Also, one needs to avoid any sedatives, hypnotics, narcotics, or tranquilizers. Depressed her respirations. Prognosis is guarded. Plan dated 12/30/2020. The patient did not use BiPAP last night. Currently, she is on 2 L nasal cannula. Her saturations are excellent. She is awake and alert. She would like to be discharged home. I believe that certainly reasonable. The patient will follow-up in the office. She sees one of my partners. No additional recommendations at this time. Plan dated 12/31/2020. The patient's doing well. The patient in my opinion could possibly be discharged home. We'll leave that up to the primary. The patient should follow-up in the office with my partner. No additional recommendations are made. No labs or x-rays today as yet. Vital signs are stable. 2 L saturation is 97%. The patient is not requiring BiPAP at this time. We will continue to follow the patient and make recommendations were appropriate. Time with Patient: Less than 30
[2020-12-31 06:40] LABS: Glucose,Whole Blood 78 mg/dL (75-99)
[2020-12-31] MEDS: INSULIN ASPART (NovoLOG) 100 UNIT/ML VIAL SQ SCH ×2 (06:48→12:41)
[2020-12-31 08:21] VITALS: BP 146/65; RESP 20; TEMP 98
[2020-12-31] MEDS: ATORVASTATIN 20 MG TAB PO SCH (08:45)
[2020-12-31] MEDS: CITALOPRAM HYDROBROMIDE 20 MG TAB PO SCH (08:45)
[2020-12-31] MEDS: ASPIRIN 81 MG PO SCH (08:45)
[2020-12-31] MEDS: METOPROLOL TARTRATE 25 MG TAB PO SCH (08:46)
[2020-12-31] MEDS: ENOXAPARIN 40 MG/0.4 ML SYRINGE SQ SCH (08:46)
[2020-12-31] MEDS: amLODIPine 10 MG TAB PO SCH (08:46)
[2020-12-31] MEDS ORDERED: predniSONE 20 MG TAB PO SCH (09:00)
[2020-12-31] MEDS: IPRATROPIUM-ALBUTEROL 3 ML NEB INHALATION SCH ×2 (09:14→12:40)
[2020-12-31] MEDS: FORMOTEROL FUMARATE 20 MCG/2 ML NEBU INHALATION SCH (09:14)
[2020-12-31] MEDS: BUDESONIDE 0.5 MG/2 ML NEBU INHALATION SCH (09:19)
[2020-12-31 12:10] LABS: Glucose,Whole Blood 92 mg/dL (75-99)
[2020-12-31 12:49] VITALS: PULSE 66
--- NOTE | 2020-12-31 16:10 | P.DS ---
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 Chronic stable medical conditions include coronary artery disease with stent, some mild right-sided weakness from prior stroke, hypertension, hyperlipidemia, obstructive sleep apnea uses CPAP machine, TB in 1985, hiatal hernia, surgery for thoracic aortic aneurysm, sleep gastrectomy in [address] Hamilton. Patient now presents with 1 day of increasing shortness of breath. Wheezing cough. Minimal sputum. Poor appetite. No fever no chills. Tired , rundown. Did feel a bit better with steroids and bronchodilators. Admitted with COPD exacerbation. Started on bronchodilators, steroids, inhaled steroids. Today: Doing much better. Breathing improved. Oral intake good. Discussed with the patient. Stable to go home. Consultation: Dr. Aldana from pulmonary Past medical history to include: Coronary artery disease with stent, COPD, stroke with some mild right-sided weakness, hyperlipidemia, hypertension, obstructive sleep apnea uses CPAP, TB 1985, hiatal hernia, sleep gastrectomy in 2018, surgery for thoracic aortic aneurysm Social history: Started smoking age of 15 stopped in 2011. One pack a day. Alcohol occasionally. Lives with her grandson. Occasionally uses a cane or a walker. Physical examination: VITAL SIGNS: 98, 62, 20, 1 46 x 65, 95% on 2 L GENERAL: He planning in bed, breathing improved EYES: Pupils equal. Conjunctiva normal. NECK: JVD not raised; masses not palpable. HEART: First and second heart sounds are normal; no edema. LUNGS:[ Respiratory rate normal decreased breath sounds ABDOMEN: Soft, nontender, liver spleen not palpable, no masses palpable. PSYCH: Alert and oriented x3; mood and affect anxious NEUROLOGICAL: Cranial nerves grossly intact; no facial asymmetry, mild right hemiparesis INVESTIGATIONS, reviewed in the clinical context: WBC 12.2 hemoglobin 13 potassium 3.5 crit 0.48 Troponin I less than 0.012. ProBNP 181 Coronavirus [PCR] not detected EKG tracing personally reviewed by me-normal sinus rhythm Chest x-ray film personally reviewed by me-no infiltrates. Endovascular stent graft in the aorta Assessment and plan: -Acute severe COPD exacerbation in an [id number] on bronchodilators, IV and inhaled steroids. Long-acting beta agonist. -Coronary artery disease with stent continue with Lopressor, Lipitor -Mild right hemiparesis from prior stroke -Hyperlipidemia, continue with Lipitor -Essential hypertension, continue with amlodipine, Lopressor -Obstructive sleep apnea uses CPAP , continue the same -Hiatal hernia -History of sleeve gastrectomy -Depression not otherwise specified, continue Celexa -DVT prophylaxis , Subcu Lovenox -Lower extremity edema secondary to amlodipine. KOLE stockings. Disposition: Home Plan - Discharge Summary New Discharge Prescriptions: New predniSONE 0 mg PO DIRECTED 16 Days #40 tab Aspirin 81 mg PO DAILY chew Continue Citalopram Hydrobromide [CeleXA] 20 mg PO DAILY Umeclidinium [place] [Incruse Ellipta] 1 puff INHALATION RT-DAILY Atorvastatin [Lipitor] 20 mg PO DAILY amLODIPine BESYLATE 10 mg PO DAILY Albuterol Nebulized [Ventolin Nebulized] 2.5 mg INHALATION RT-TID PRN PRN Reason: Shortness Of Breath Albuterol Sulfate [Proair Hfa] 2 puff INHALATION RT-QID PRN PRN Reason: Shortness Of Breath Metoprolol Tartrate [Lopressor] 25 mg PO BID #60 tab Formoterol Fumarate [Perforomist] 20 mcg INHALATION RT-DAILY Budesonide [Pulmicort] 0.5 mg INHALATION RT-BID Discharge Medication List Citalopram Hydrobromide [CeleXA] 20 mg PO DAILY 05/01/16 [History] Umeclidinium [place] [Incruse Ellipta] 1 puff INHALATION RT-DAILY 11/07/17 [History] Atorvastatin [Lipitor] 20 mg PO DAILY 03/09/19 [History] amLODIPine BESYLATE 10 mg PO DAILY 03/09/19 [History] Albuterol Nebulized [Ventolin Nebulized] 2.5 mg INHALATION RT-TID PRN 09/14/20 [History] Formoterol Fumarate [Perforomist] 20 mcg INHALATION RT-DAILY 10/12/20 [History] Albuterol Sulfate [Proair Hfa] 2 puff INHALATION RT-QID PRN 12/04/20 [History] Metoprolol Tartrate [Lopressor] 25 mg PO BID #60 tab 12/06/20 [Rx] Budesonide [Pulmicort] 0.5 mg INHALATION RT-BID 12/29/20 [History] predniSONE 0 mg PO DIRECTED 16 Days #40 tab 12/30/20 [Rx] Aspirin 81 mg PO DAILY chew 12/31/20 [Rx] Follow up Appointment(s)/Referral(s): Jarad Steen DO [STAFF PHYSICIAN] - 1 Week (please call office when open to make follow up appointment) Gonsalo Phan DO [Primary Care Provider] - 1-2 days (please call office when open to make follow up appointment) Celia Holland MD [STAFF PHYSICIAN] - 1 Week (please call office when open to make follow up appointment) Patient Instructions/Handouts: COPD (Chronic Obstructive Pulmonary Disease) (DC) Discharge Disposition: HOME SELF-CARE
--- NOTE | 2021-01-03 12:19 | ECHOF ---
Referral Reason:LV function MEASUREMENTS -------- HEIGHT: 162.6 cm WEIGHT: 69.4 kg BP: IVSd: 0.8 cm (0.6 - 1.1) LVIDd: 4.9 cm (3.9 - 5.3) LVPWd: 1.2 cm (0.6 - 1.1) IVSs: 1.9 cm LVIDs: 2.1 cm LVPWs: 1.5 cm Ao Diam: 3.1 cm (2.0 - 3.7) AV Cusp: 1.8 cm (1.5 - 2.6) LA Diam: 2.4 cm (2.7 - 3.8) MV EXCURSION: 21.171 mm (> 18.000) MV EF SLOPE: 70 mm/s (70 - 150) EPSS: 3.5 cm MV E Gus: 0.88 m/s MV DecT: 225 ms MV A Gus: 1.10 m/s MV E/A Ratio: 0.80 AR PHT: 939 ms RAP: 5.00 mmHg RVSP: 17.14 mmHg FINDINGS -------- Sinus rhythm. This was a technically adequate study. The left ventricular size is normal. Left ventricular wall thickness is normal. Overall left vent ricular systolic function is normal with, an EF between 55 - 60 %. The RV was not well visualized. The left atrial size is normal. The right atrial size is normal. The aortic valve is trileaflet and appears structurally normal. Trace to mild aortic regurgitation. The mitral valve is normal. Mild mitral regurgitation is present. The tricuspid valve appears structurally normal. Mild tricuspid regurgitation present. Right vent ricular systolic pressure is normal at < 35 mmHg. There is no pulmonic regurgitation present. The aortic root size is normal. IVC Not well visulized. There is no pericardial effusion. CONCLUSIONS -------- 1. Left ventricular wall thickness is normal. 2. Overall left ventricular systolic function is normal with, an EF between 55 - 60 %. 3. The left atrial size is normal. 4. Trace to mild aortic regurgitation. 5. Mild mitral regurgitation is present. 6. Mild tricuspid regurgitation present. 7. There is no pericardial effusion. ROTOR BALANCER: Laura Gupta RDCS
== END 2020-12-31 13:30 | disposition home or self-care (01) | DRG 190 ==
LOC: EC 05:38 → 3SCARD 06:22
PROVIDERS: ADMIT Hospitalist; ATTEND Hospitalist
PROC: 5A09357 Assistance with Respiratory Ventilation, Less than 24 Consecutive Hours, Continuous Positive Airway Pressure (ICD-10-PCS; principal; 2020-12-29)
DX: J44.1 Chronic obstructive pulmonary disease with (acute) exacerbation (principal); J96.21 Acute and chronic respiratory failure with hypoxia; J96.22 Acute and chronic respiratory failure with hypercapnia; I69.351 Hemiplegia and hemiparesis following cerebral infarction affecting right dominant side; I27.20 Pulmonary hypertension, unspecified; I71.2 Thoracic aortic aneurysm, without rupture; E78.5 Hyperlipidemia, unspecified; Z20.822 Contact with and (suspected) exposure to COVID-19; G47.33 Obstructive sleep apnea (adult) (pediatric); I10 Essential (primary) hypertension; K44.9 Diaphragmatic hernia without obstruction or gangrene; F41.9 Anxiety disorder, unspecified; F32.9 Major depressive disorder, single episode, unspecified; I25.10 Atherosclerotic heart disease of native coronary artery without angina pectoris; I25.2 Old myocardial infarction; R60.0 Localized edema; T46.1X5A Adverse effect of calcium-channel blockers, initial encounter; Z99.81 Dependence on supplemental oxygen; Z79.82 Long term (current) use of aspirin; Z79.51 Long term (current) use of inhaled steroids; Z79.899 Other long term (current) drug therapy; Z87.891 Personal history of nicotine dependence; Z98.84 Bariatric surgery status; Z95.5 Presence of coronary angioplasty implant and graft; Z95.828 Presence of other vascular implants and grafts; Z86.11 Personal history of tuberculosis; Z85.828 Personal history of other malignant neoplasm of skin; Z90.49 Acquired absence of other specified parts of digestive tract; Z87.19 Personal history of other diseases of the digestive system; Z86.39 Personal history of other endocrine, nutritional and metabolic disease; Z98.890 Other specified postprocedural states; Z88.1 Allergy status to other antibiotic agents; Z88.0 Allergy status to penicillin; Z88.2 Allergy status to sulfonamides; Z82.5 Family history of asthma and other chronic lower respiratory diseases; Z82.49 Family history of ischemic heart disease and other diseases of the circulatory system; Z80.9 Family history of malignant neoplasm, unspecified
CPT/HCPCS: 36415; 71045; 80053; 82550; 83605; 83735; 83880; 84484; 85025; 85610; 85730; 87635; 93005; 93306; 94640; 94644; 94660; 94760; 96374; 96375; 99285

== ENCOUNTER 2021-03-11 11:08 | Inpatient (IN) | payer MEDICARE ==
[2021-03-11] MEDS ORDERED: IPRATROPIUM 0.5 MG/2.5 ML NEBU INHALATION STA (11:36)
[2021-03-11] MEDS ORDERED: methylPREDNISolone SOD SUCCI 125 MG/2 ML VIAL IV STA (11:36)
[2021-03-11] MEDS ORDERED: ALBUTEROL NEBULIZED 2.5 MG/3 ML INHALATION STA (11:36)
--- NOTE | 2021-03-11 11:43 | ED ---
General Adult HPI - General Chief complaint: Shortness of Breath Stated complaint: ALBER Time Seen by Provider: 03/11/21 11:20 Source: patient, RN notes reviewed, old records reviewed Mode of arrival: wheelchair Limitations: physical limitation - History of Present Illness Initial comments: This is a 71-year-old female who presents emergency Department with a past medical history significant for COPD. Patient comes in today stating that yesterday she started having difficulty breathing and any exertion makes it considerably worse. Patient states she's taken multiple breathing treatments and it has not helped. Patient states she has on 3 L of oxygen at home she will bumped up to 4 today and she still felt extreme short of breath. Patient denies any palpitations patient denies any chest pain. Patient denies any recent fever chills or cough. Patient states she has been vaccinated with the COVID vaccine. Patient denies any headache patient denies lightheadedness dizziness. Patient denies abdominal pain patient denies nausea vomiting diarrhea. Patient denies any swelling to the legs or calf tenderness. - Related Data Home Medications Medication Instructions Recorded Confirmed Citalopram Hydrobromide [CeleXA] 20 mg PO DAILY 05/01/16 03/11/21 Umeclidinium [place] [Incruse 1 puff INHALATION RT-DAILY 11/07/17 03/11/21 Ellipta] Atorvastatin [Lipitor] 20 mg PO DAILY 03/09/19 03/11/21 amLODIPine BESYLATE 10 mg PO DAILY 03/09/19 03/11/21 Albuterol Nebulized [Ventolin 2.5 mg INHALATION RT-TID PRN 09/14/20 03/11/21 Nebulized] Formoterol Fumarate [Perforomist] 20 mcg INHALATION RT-DAILY 10/12/20 03/11/21 Albuterol Sulfate [Proair Hfa] 2 puff INHALATION RT-QID PRN 12/04/20 03/11/21 Budesonide [Pulmicort] 0.5 mg INHALATION RT-BID 12/29/20 03/11/21 Aspirin EC [Ecotrin Low Dose] 81 mg PO DAILY 03/11/21 03/11/21 Previous Rx's Medication Instructions Recorded Metoprolol Tartrate [Lopressor] 25 mg PO BID #60 tab 12/06/20 Allergies Allergy/AdvReac Type Severity Reaction Status Date / Time Penicillins Allergy Rash/Hives Verified 03/11/21 12:44 Sulfa (Sulfonamide Allergy Rash/Hives Verified 03/11/21 12:44 Antibiotics) sulfamethoxazole Allergy Rash/Hives Verified 03/11/21 12:44 [From Bactrim] trimethoprim [From Bactrim] Allergy Rash/Hives Verified 03/11/21 12:44 levofloxacin [From Levaquin] AdvReac Nausea & Verified 03/11/21 12:44 Vomiting Review of Systems ROS Statement: Those systems with pertinent positive or pertinent negative responses have been documented in the HPI. ROS Other: All systems not noted in ROS Statement are negative. Past Medical History Past Medical History: Coronary Artery Disease (CAD), Cancer, COPD, CVA/TIA, Hyperlipidemia, Hypertension, Myocardial Infarction (OR), Sleep Apnea/CPAP/BIPAP Additional Past Medical History / Comment(s): CAD, previous history of coronary stent, thoracic aortic aneurysm with previous endovascular stent grafting, remote history of tuberculosis back in 1985, twice a with an AHI of 21, not utilizing her BiPAP, skin cancer, history of CVA with residual right-sided weakness, obesity with a previous history of sleep gastrectomy, COPD Last Myocardial Infarction Date:: 01/25/2006 History of Any Multi-Drug Resistant Organisms: None Reported Past Surgical History: Bariatric Surgery, Cholecystectomy, Heart Catheterization With Stent, Hernia Repair Additional Past Surgical History / Comment(s): Cyst removed from thyroid, HEART CATH WITH STENT X2, SURGERY FOR Thoracic Aortic Aneurysm, Ventral hernia repair with mesh July 2017. EGD, COLONOSCOPY. sleeve gastrectomy 05/19/18 (Dr. Jose Hamilton) Past Anesthesia/Blood Transfusion Reactions: Postoperative Nausea & Vomiting (PONV) Date of Last Stent Placement:: 2009 Past Psychological History: Depression Smoking Status: Former smoker Past Alcohol Use History: Occasional Past Drug Use History: Marijuana - Past Family History Father Family Medical History: COPD, Myocardial Infarction (OR) Mother Family Medical History: Hypertension Additional Family Medical History / Comment(s): Pacemaker, heart issues Sister(s) Family Medical History: Cancer General Exam - General Exam Comments Initial Comments: GENERAL: Patient is well-developed and well-nourished. Patient is nontoxic and well- hydrated and is in mild distress. ENT: Neck is soft and supple. No significant lymphadenopathy is noted. Oropharynx is clear. Moist mucous membranes. Neck has full range of motion without eliciting any pain. EYES: The sclera were anicteric and conjunctiva were pink and moist. Extraocular movements were intact and pupils were equal round and reactive to light. Eyel ids were unremarkable. PULMONARY: Patient is tachypneic and has decreased breath sounds throughout CARDIOVASCULAR: There is a regular rate and rhythm without any murmurs gallops or rubs. ABDOMEN: Soft and nontender with normal bowel sounds. SKIN: Skin is clear with no lesions or rashes and otherwise unremarkable. NEUROLOGIC: Patient is alert and oriented x3. Cranial nerves II through XII are grossly intact. Motor and sensory are also intact. Normal speech, volume and content. Symmetrical smile. MUSCULOSKELETAL: Normal extremities with adequate strength and full range of motion. LYMPHATICS: No significant lymphadenopathy is noted PSYCHIATRIC: Normal psychiatric evaluation. Limitations: physical limitation Course Vital Signs 03/11/21 03/11/21 03/11/21 11:21 11:24 12:05 Temperature 98.2 F Pulse Rate 66 64 Respiratory 18 18 Rate Blood Pressure 122/84 O2 Sat by Pulse 93 L Oximetry 03/11/21 12:27 Temperature Pulse Rate 64 Respiratory Rate Blood Pressure O2 Sat by Pulse Oximetry Medical Decision Making - Medical Decision Making EKG shows sinus bradycardia 57 bpm WI interval 242 QRS is 82 QT interval 410 QTC is 99. Patient's EKG shows no ST segment elevation or depression. Chest x-ray shows no acute abnormality. Patient received steroids and multiple breathing treatments in the department. Patient is a slightly better but still not moving much air. I spoke with Dr. Masters agreed to admit the patient admitted the patient remaining orders and consult to need steroids and breathing treatments on the floor. - Lab Data Result diagrams: 03/11/21 11:46 03/11/21 11:46 Lab Results 03/11/21 03/11/21 03/11/21 Range/Units 11:46 11:46 11:46 WBC 10.9 H (3.8-10.6) k/uL RBC 4.45 (3.80-5.40) m/uL Hgb 14.3 (11.4-16.0) gm/dL Hct 43.8 (34.0-46.0) % MCV 98.4 (80.0-100.0) fL MCH 32.1 (25.0-35.0) pg MCHC 32.7 (31.0-37.0) g/dL RDW 13.7 (11.5-15.5) % Plt Count 284 (150-450) k/uL MPV 7.0 Neutrophils % 85 % Lymphocytes % 9 % Monocytes % 4 % Eosinophils % 1 % Basophils % 0 % Neutrophils # 9.2 H (1.3-7.7) k/uL Lymphocytes # 1.0 (1.0-4.8) k/uL Monocytes # 0.4 (0-1.0) k/uL Eosinophils # 0.1 (0-0.7) k/uL Basophils # 0.0 (0-0.2) k/uL PT 9.5 (9.0-12.0) sec INR 0.9 (<1.2) APTT 20.0 L (22.0-30.0) sec Sodium 140 (137-145) mmol/L Potassium 3.6 (3.5-5.1) mmol/L Chloride 104 (98-107) mmol/L Carbon Dioxide 28 (22-30) mmol/L Anion Gap 8 mmol/L BUN 21 H (7-17) mg/dL Creatinine 0.61 (0.52-1.04) mg/dL Est GFR (CKD-EPI)AfAm >90 (>60 ml/min/1.73 sqM) Est GFR (CKD-EPI)NonAf >90 (>60 ml/min/1.73 sqM) Glucose 106 H (74-99) mg/dL Plasma Lactic Acid Valerio (0.7-2.0) mmol/L Calcium 9.5 (8.4-10.2) mg/dL Magnesium 2.1 (1.6-2.3) mg/dL Total Bilirubin 0.2 (0.2-1.3) mg/dL AST 20 (14-36) U/L ALT 12 (4-34) U/L Alkaline Phosphatase 32 L (38-126) U/L Troponin I (0.000-0.034) ng/mL Total Protein 6.6 (6.3-8.2) g/dL Albumin 4.0 (3.5-5.0) g/dL 03/11/21 03/11/21 Range/Units 11:46 11:46 WBC (3.8-10.6) k/uL RBC (3.80-5.40) m/uL Hgb (11.4-16.0) gm/dL Hct (34.0-46.0) % MCV (80.0-100.0) fL MCH (25.0-35.0) pg MCHC (31.0-37.0) g/dL RDW (11.5-15.5) % Plt Count (150-450) k/uL MPV Neutrophils % % Lymphocytes % % Monocytes % % Eosinophils % % Basophils % % Neutrophils # (1.3-7.7) k/uL Lymphocytes # (1.0-4.8) k/uL Monocytes # (0-1.0) k/uL Eosinophils # (0-0.7) k/uL Basophils # (0-0.2) k/uL PT (9.0-12.0) sec INR (<1.2) APTT (22.0-30.0) sec Sodium (137-145) mmol/L Potassium (3.5-5.1) mmol/L Chloride (98-107) mmol/L Carbon Dioxide (22-30) mmol/L Anion Gap mmol/L BUN (7-17) mg/dL Creatinine (0.52-1.04) mg/dL Est GFR (CKD-EPI)AfAm (>60 ml/min/1.73 sqM) Est GFR (CKD-EPI)NonAf (>60 ml/min/1.73 sqM) Glucose (74-99) mg/dL Plasma Lactic Acid Valerio 1.0 (0.7-2.0) mmol/L Calcium (8.4-10.2) mg/dL Magnesium (1.6-2.3) mg/dL Total Bilirubin (0.2-1.3) mg/dL AST (14-36) U/L ALT (4-34) U/L Alkaline Phosphatase (38-126) U/L Troponin I <0.012 (0.000-0.034) ng/mL Total Protein (6.3-8.2) g/dL Albumin (3.5-5.0) g/dL Disposition Clinical Impression: Acute exacerbation of chronic obstructive pulmonary disease Disposition: ADMITTED IP TO THIS HOSP Referrals: Gonsalo Phan DO [Primary Care Provider] - 1-2 days Time of Disposition: 12:58
[2021-03-11 12:14] LABS: Basophils % (A) 0 %; Eosinophils # (A) 0.1 k/uL (0-0.7); Eosinophils % (A) 1 %; HCT 43.8 % (34.0-46.0); HGB 14.3 gm/dL (11.4-16.0); Lymphocytes % (A) 9 %; MCH 32.1 pg (25.0-35.0); MCHC 32.7 g/dL (31.0-37.0); MCV 98.4 fL (80.0-100.0); Monocytes # (A) 0.4 k/uL (0-1.0); Monocytes % (A) 4 %; Neutrophils # (A) 9.2 k/uL (1.3-7.7); Neutrophils % (A) 85 %; Platelet Count 284 k/uL (150-450); RBC 4.45 m/uL (3.80-5.40); RDW 13.7 % (11.5-15.5); WBC 10.9 k/uL (3.8-10.6)
[2021-03-11 12:29] LABS: ALT 12 U/L (4-34); AST 20 U/L (14-36); African American GFR (CKD) >90 (>60 ml/min/1.73 sqM); Alkaline Phosphatase 32 U/L (38-126); Anion Gap 8 mmol/L; Blood Urea Nitrogen 21 mg/dL (7-17); Calcium 9.5 mg/dL (8.4-10.2); Carbon Dioxide 28 mmol/L (22-30); Chloride 104 mmol/L (98-107); Glucose 106 mg/dL (74-99); Magnesium 2.1 mg/dL (1.6-2.3); Non-African American GFR(CKD) >90 (>60 ml/min/1.73 sqM); Potassium 3.6 mmol/L (3.5-5.1); Sodium 140 mmol/L (137-145); Total Bilirubin 0.2 mg/dL (0.2-1.3); Total Protein 6.6 g/dL (6.3-8.2)
[2021-03-11 12:30] LABS: INR 0.9 (<1.2); Prothrombin Time 9.5 sec (9.0-12.0)
[2021-03-11] MEDS ORDERED: IPRATROPIUM-ALBUTEROL 3 ML NEB INHALATION SCH (13:00)
--- NOTE | 2021-03-11 13:20 | XR ---
EXAMINATION TYPE: Chest 2 view. DATE OF EXAM: 03/11/2021 COMPARISON: Chest radiograph 12/04/2020 HISTORY: Difficulty breathing TECHNIQUE: Frontal and lateral views of the chest are obtained. FINDINGS: There is no focal air space opacity, pleural effusion, or pneumothorax seen. There is fla ttening of the diaphragms and increased AP diameter of the chest. The cardiac silhouette size is with in normal limits. The osseous structures are intact. Redemonstration of left in the descending aorta. Cardiac stent. IMPRESSION: Emphysematous changes without an acute process.
[2021-03-11] MEDS ORDERED: MAGNESIUM HYDROXIDE 2,400 MG/10 ML CUP PO PRN (13:24)
[2021-03-11] MEDS ORDERED: ACETAMINOPHEN TAB 325 MG TAB PO PRN (13:24)
[2021-03-11] MEDS ORDERED: NALOXONE 0.4 MG/ML 1 ML VIAL IV PRN (13:24)
[2021-03-11] MEDS ORDERED: ONDANSETRON 4 MG/2 ML VIAL IVP PRN (13:24)
[2021-03-11] MEDS ORDERED: MAG HYDROX/AL HYDROX/SIMETH 30 ML CUP PO PRN (13:24)
[2021-03-11] MEDS ORDERED: LORazepam 0.5 MG TAB PO PRN (13:24)
[2021-03-11] MEDS ORDERED: CALCIUM CARBONATE 500 MG CHEWABLE PO PRN (13:24)
[2021-03-11] MEDS ORDERED: LACTULOSE 20 GM/30 ML CUP PO PRN (13:24)
[2021-03-11] MEDS ORDERED: MELATONIN 3 MG TABLET PO PRN (13:24)
[2021-03-11] MEDS: IPRATROPIUM-ALBUTEROL 3 ML NEB INHALATION SCH ×4 (15:29→23:25)
[2021-03-11 17:17] LABS: Glucose,Whole Blood 180 mg/dL (75-99)
[2021-03-11] MEDS: INSULIN ASPART (NovoLOG) 100 UNIT/ML VIAL SQ SCH ×2 (17:18→20:19)
[2021-03-11] MEDS ORDERED: methylPREDNISolone SOD SUCCI 125 MG/2 ML VIAL IV SCH (18:00)
[2021-03-11] MEDS: BUDESONIDE 0.5 MG/2 ML NEBU INHALATION SCH (19:34)
[2021-03-11] MEDS: FORMOTEROL FUMARATE 20 MCG/2 ML NEBU INHALATION SCH (19:34)
[2021-03-11 20:19] LABS: Glucose,Whole Blood 154 mg/dL (75-99)
[2021-03-11] MEDS: METOPROLOL TARTRATE 25 MG TAB PO SCH (20:19)
[2021-03-11] MEDS ORDERED: RX INFO: IV CONTRAST WAS GIVEN 1 EACH MISC MISCELLANE PRN (22:14)
--- NOTE | 2021-03-11 22:19 | P.HPIM ---
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 Chronic stable medical conditions include coronary artery disease with stent, some mild right-sided weakness from prior stroke, hypertension, hyperlipidemia, obstructive sleep apnea uses CPAP machine, TB in 1985, hiatal hernia, surgery for thoracic aortic aneurysm, sleep gastrectomy [place] [address] Hamilton. Home oxygen 4 L Patient now presents with 2 weeks of progressive worsening shortness of breath. No cough. Has noticed some swelling of the lower extremity especially the left lower extremity. Appetite has gone down. Continues to use 4 L of oxygen at home. No fever no chills. Tired rundown. Review of systems: GEN.: Tired EYES: None HEENT: None NECK: None RESPIRATORY: As above CARDIOVASCULAR: None GASTROINTESTINAL: None GENITOURINARY: None MUSCULOSKELETAL: None LYMPHATICS: None HEMATOLOGICAL: None PSYCHIATRY: None NEUROLOGICAL: None Past medical history to include: Coronary artery disease with stent, COPD, stroke with some mild right-sided weakness, hyperlipidemia, hypertension, obstructive sleep apnea uses CPAP, TB 1985, hiatal hernia, sleep gastrectomy in 2018, surgery for thoracic aortic aneurysm, 4 L of oxygen at home Social history: Started smoking age of 15 stopped in 2011. One pack a day. Alcohol occasionally. Lives with her grandson. Occasionally uses a cane or a walker. Physical examination: VITAL SIGNS: 98.5, 69, 18, 125/68, 95% on 4 L GENERAL: BMI 29.3, reclining in bed, some shortness of breath EYES: Pupils equal. Conjunctiva normal. HEENT: External appearance of nose and ears normal, oral cavity grossly normal. NECK: JVD not raised; masses not palpable. HEART: First and second heart sounds are normal; edemai, especially in the left lower extremity LUNGS: Respiratory rate increased, decreased breath sounds. ABDOMEN: Soft, nontender, liver spleen not palpable, no masses palpable. PSYCH: Alert and oriented x3; mood and affect anxious NEUROLOGICAL: Cranial nerves grossly intact; no facial asymmetry, mild right hemiparesis LYMPHATICS: No lymph nodes palpable in the axilla and neck INVESTIGATIONS, reviewed in the clinical context: WBC 10.9 hemoglobin 14.3 platelets 284 potassium 3.6 creatinine 0.61 Troponin I less than 0.012 EKG tracing personally reviewed by me-normal sinus rhythm 57-rate Chest x-ray film personally reviewed by me-hyperinflation. Underwent vascular stent. No obvious infiltrates Assessment and plan: -Acute severe COPD exacerbation in an ex-smoker- on bronchodilators, IV and inhaled steroids. Long-acting beta agonist. -Rule out PE CT chest PE protocol -Coronary artery disease with stent continue with Lopressor, Lipitor -Mild right hemiparesis from prior stroke -Hyperlipidemia, 20 mg Lipitor -Essential hypertension, amlodipine 10 mg daily, Lopressor 25 mg twice a day -Obstructive sleep apnea uses CPAP , continue the same -Hiatal hernia -History of sleeve gastrectomy -Depression not otherwise specified, 20 mg Celexa -DVT prophylaxis , Subcu Lovenox -Lower extremity edema secondary to amlodipine. KOLE stockings. Care was discussed with the patient. Started on bronchodilators, inhaled and IV steroids, inhaled long-acting beta agonist. Home medications to be resumed. Oxygen support. CT chest to rule out PE. Consult [facility] Past Medical History Past Medical History: Coronary Artery Disease (CAD), Cancer, COPD, CVA/TIA, Hyperlipidemia, Hypertension, Myocardial Infarction (NH), Sleep Apnea/CPAP/BIPAP Additional Past Medical History / Comment(s): CAD, previous history of coronary stent, thoracic aortic aneurysm with previous endovascular stent grafting, remote history of tuberculosis back in 1985, twice a with an AHI of 21, not utilizing her BiPAP, skin cancer, history of CVA with residual right-sided weakness, obesity with a previous history of sleep gastrectomy, COPD Last Myocardial Infarction Date:: 01/25/2006 History of Any Multi-Drug Resistant Organisms: None Reported Past Surgical History: Bariatric Surgery, Cholecystectomy, Heart Catheterization With Stent, Hernia Repair Additional Past Surgical History / Comment(s): Cyst removed from thyroid, HEART CATH WITH STENT X2, SURGERY FOR Thoracic Aortic Aneurysm, Ventral hernia repair with mesh July 2017. EGD, COLONOSCOPY. sleeve gastrectomy 05/19/18 (Dr. Jose Hamilton) Past Anesthesia/Blood Transfusion Reactions: Postoperative Nausea & Vomiting (PONV) Date of Last Stent Placement:: 2009 Past Psychological History: Depression Smoking Status: Former smoker Past Alcohol Use History: Occasional Additional Past Alcohol Use History / Comment(s): STARTED SMOKING AT AGE 15, QUIT IN 2013 SMOKED 1PPD. Past Drug Use History: Marijuana Additional Drug Use History / Comment(s): PAST HISTORY - Past Family History Father Family Medical History: COPD, Myocardial Infarction (NH) Mother Family Medical History: Hypertension Additional Family Medical History / Comment(s): Pacemaker, heart issues Sister(s) Family Medical History: Cancer Medications and Allergies Home Medications Medication Instructions Recorded Confirmed Type Citalopram Hydrobromide [CeleXA] 20 mg PO DAILY 05/01/16 03/11/21 History Umeclidinium [place] [Incruse 1 puff INHALATION RT-DAILY 11/07/17 03/11/21 History Ellipta] Atorvastatin [Lipitor] 20 mg PO DAILY 03/09/19 03/11/21 History amLODIPine BESYLATE 10 mg PO DAILY 03/09/19 03/11/21 History Albuterol Nebulized [Ventolin 2.5 mg INHALATION RT-TID PRN 09/14/20 03/11/21 History Nebulized] Formoterol Fumarate [Perforomist] 20 mcg INHALATION RT-DAILY 10/12/20 03/11/21 History Albuterol Sulfate [Proair Hfa] 2 puff INHALATION RT-QID PRN 12/04/20 03/11/21 History Metoprolol Tartrate [Lopressor] 25 mg PO BID #60 tab 12/06/20 03/11/21 Rx Budesonide [Pulmicort] 0.5 mg INHALATION RT-BID 12/29/20 03/11/21 History Aspirin EC [Ecotrin Low Dose] 81 mg PO DAILY 03/11/21 03/11/21 History Allergies Allergy/AdvReac Type Severity Reaction Status Date / Time Penicillins Allergy Rash/Hives Verified 03/11/21 12:44 Sulfa (Sulfonamide Allergy Rash/Hives Verified 03/11/21 12:44 Antibiotics) sulfamethoxazole Allergy Rash/Hives Verified 03/11/21 12:44 [From Bactrim] trimethoprim [From Bactrim] Allergy Rash/Hives Verified 03/11/21 12:44 levofloxacin [From Levaquin] AdvReac Nausea & Verified 03/11/21 12:44 Vomiting Physical Exam Vitals: Vital Signs Temp Pulse Pulse Resp BP BP Pulse Ox 03/11/21 20:00 98.5 F 69 18 125/68 95 03/11/21 19:55 72 03/11/21 19:46 68 03/11/21 19:45 68 03/11/21 19:35 67 03/11/21 15:41 60 03/11/21 15:31 60 97 03/11/21 15:06 17 03/11/21 14:05 60 17 128/67 97 03/11/21 14:00 98.1 F 62 18 125/67 96 03/11/21 13:24 62 18 128/84 03/11/21 12:27 64 03/11/21 12:05 64 03/11/21 11:24 18 03/11/21 11:21 98.2 F 66 18 122/84 93 L Intake and Output 03/11/21 03/11/21 03/11/21 06:59 14:59 22:59 Other: Weight 72.575 kg Results CBC & Chem 7: 03/11/21 11:46 03/11/21 11:46 Labs: Abnormal Lab Results - Last 24 Hours (Table) 03/11/21 03/11/21 03/11/21 Range/Units 11:46 11:46 11:46 WBC 10.9 H (3.8-10.6) k/uL Neutrophils # 9.2 H (1.3-7.7) k/uL APTT 20.0 L (22.0-30.0) sec BUN 21 H (7-17) mg/dL Glucose 106 H (74-99) mg/dL POC Glucose (mg/dL) (75-99) mg/dL Alkaline Phosphatase 32 L (38-126) U/L 03/11/21 03/11/21 Range/Units 17:16 20:17 WBC (3.8-10.6) k/uL Neutrophils # (1.3-7.7) k/uL APTT (22.0-30.0) sec BUN (7-17) mg/dL Glucose (74-99) mg/dL POC Glucose (mg/dL) 180 H 154 H (75-99) mg/dL Alkaline Phosphatase (38-126) U/L Thrombosis Risk Factor Assmnt - Choose All That Apply Each Factor Represents 1 point: Obesity (BMI >25) Each Risk Factor Represents 2 Points: Age 61-74 years Thrombosis Risk Factor Assessment Total Risk Factor Score: 3 Thrombosis Risk Factor Assessment Level: Moderate Risk
--- NOTE | 2021-03-11 22:59 | US ---
EXAMINATION TYPE: US venous doppler duplex LE LT DATE OF EXAM: 03/11/2021 10:16 PM COMPARISON: NONE CLINICAL HISTORY: Rule out PE. Pt states left leg swelling SIDE PERFORMED: Left TECHNIQUE: The lower extremity deep venous system is examined utilizing real time linear array sonog rachel with graded compression, doppler sonography and color-flow sonography. VESSELS IMAGED: Common Femoral Vein Deep Femoral Vein Greater Saphenous Vein * Femoral Vein Popliteal Vein Small Saphenous Vein * Proximal Calf Veins (* superficial vessels) Left Leg: Negative for DVT IMPRESSION: No sign of deep vein thrombosis in the left leg.
[2021-03-11] MEDS: methylPREDNISolone SOD SUCCI 40 MG/ML 1 ML VIAL IV SCH (23:17)
--- NOTE | 2021-03-11 23:42 | CT ---
EXAMINATION TYPE: CT chest angio for PE DATE OF EXAM: 03/11/2021 COMPARISON: 12/04/2020 HISTORY: rule out PE CT DLP: 275.3 mGycm Automated exposure control for dose reduction was used. CONTRAST: Performed with IV Contrast, patient injected with 70 mL of Isovue 370. There are 3-D post processed images. There is stent in the descending thoracic aorta. There is aneurysm descending thoracic aorta that fernanda sures up to 6 cm. The lungs are clear of consolidation. There is no evidence of a pulmonary mass. Th ere is no pleural effusion. There is no pericardial effusion. There is normal contrast opacification of the pulmonary arteries. There are no filling defects. There is no mediastinal adenopathy. There is no sign of aortic dissection. Thoracic spine is intact. There is no compression fracture. IMPRESSION: No evidence of pulmonary embolism. There is aneurysm of the lower thoracic aorta measures up to 6 cm with stent in good position. Aneurysm not changed compared to old exam.
[2021-03-12] MEDS: IPRATROPIUM-ALBUTEROL 3 ML NEB INHALATION SCH ×5 (03:39→20:30)
[2021-03-12 07:05] LABS: Glucose,Whole Blood 128 mg/dL (75-99)
[2021-03-12] MEDS: INSULIN ASPART (NovoLOG) 100 UNIT/ML VIAL SQ SCH ×4 (07:52→21:47)
[2021-03-12] MEDS: ASPIRIN 81 MG PO SCH (07:55)
[2021-03-12] MEDS: CITALOPRAM HYDROBROMIDE 20 MG TAB PO SCH (07:55)
[2021-03-12] MEDS: amLODIPine 10 MG TAB PO SCH (07:55)
[2021-03-12] MEDS: ATORVASTATIN 20 MG TAB PO SCH (07:55)
[2021-03-12] MEDS: methylPREDNISolone SOD SUCCI 40 MG/ML 1 ML VIAL IV SCH ×2 (07:55→16:50)
[2021-03-12] MEDS: METOPROLOL TARTRATE 25 MG TAB PO SCH ×2 (07:56→21:39)
[2021-03-12] MEDS: FORMOTEROL FUMARATE 20 MCG/2 ML NEBU INHALATION SCH ×2 (08:54→20:41)
[2021-03-12] MEDS: BUDESONIDE 0.5 MG/2 ML NEBU INHALATION SCH ×2 (08:55→20:30)
[2021-03-12 11:11] LABS: Glucose,Whole Blood 142 mg/dL (75-99)
--- NOTE | 2021-03-12 14:46 | P.PN ---
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 Chronic stable medical conditions include coronary artery disease with stent, some mild right-sided weakness from prior stroke, hypertension, hyperlipidemia, obstructive sleep apnea uses CPAP machine, TB in 1985, hiatal hernia, surgery for thoracic aortic aneurysm, sleep gastrectomy in [address] Hamilton. Home oxygen 4 L Patient now presents with 2 weeks of progressive worsening shortness of breath. No cough. Has noticed some swelling of the lower extremity especially the left lower extremity. Appetite has gone down. Continues to use 4 L of oxygen at home. No fever no chills. Tired rundown. Admitted with COPD exacerbation. Started on nebulized bronchodilators, inhaled and IV steroids. Computed tomography scan negative for PE. March 12: Sitting up in bed. Has noted that she wall metastases sometimes after eating. She eats sitting up in bed. Have asked the patient to hang the legs but the edge of the bed and sit up in a chair and not to be in the bed for at least was after eating. sister present at the bedside. PE was ruled out Review of systems: Was done for constitutional, cardiovascular, GI, pulmonary. relevant finding as above Active Medications Acetaminophen (Acetaminophen Tab 325 Mg Tab) 650 mg PO Q6HR PRN PRN Reason: Mild Pain or Fever > 100.5 Al Hydroxide/Mg Hydroxide (Mag Hydrox/Al Hydrox/Simeth 30 Ml Cup) 15 ml PO Q6HR PRN PRN Reason: Indigestion Albuterol/Ipratropium (Ipratropium-Albuterol 3 Ml Neb) 3 ml INHALATION RT-Q4H [facility] Last Admin: 03/12/21 12:44 Dose: 3 ml Documented by: Amlodipine Besylate (Amlodipine 10 Mg Tab) 10 mg PO DAILY [facility] Last Admin: 03/12/21 07:55 Dose: 10 mg Documented by: Aspirin (Aspirin 81 Mg) 81 mg PO DAILY [facility] Last Admin: 03/12/21 07:55 Dose: 81 mg Documented by: Atorvastatin Calcium (Atorvastatin 20 Mg Tab) 20 mg PO DAILY [facility] Last Admin: 03/12/21 07:55 Dose: 20 mg Documented by: Budesonide (Budesonide 0.5 Mg/2 Ml Nebu) 0.5 mg INHALATION BID [facility] Last Admin: 03/12/21 08:55 Dose: 0.5 mg Documented by: Calcium Carbonate/Glycine (Calcium Carbonate 500 Mg Chewable) 1,000 mg PO Q4HR PRN PRN Reason: Dyspepsia Citalopram Hydrobromide (Citalopram Hydrobromide 20 Mg Tab) 20 mg PO DAILY [facility] Last Admin: 03/12/21 07:55 Dose: 20 mg Documented by: Formoterol Fumarate (Formoterol Fumarate 20 Mcg/2 Ml Nebu) 20 mcg INHALATION RT-BID [facility] Last Admin: 03/12/21 08:54 Dose: 20 mcg Documented by: Insulin Aspart (Insulin Aspart (Novolog) 100 Unit/Ml Vial) 0 unit SQ [facility]; Protocol Last Admin: 03/12/21 11:25 Dose: 2 unit Documented by: Lactulose (Lactulose 20 Gm/30 Ml Cup) 20 gm PO DAILY PRN PRN Reason: Constipation Lorazepam (Lorazepam 0.5 Mg Tab) 0.5 mg PO Q6HR PRN PRN Reason: Anxiety Magnesium Hydroxide (Magnesium Hydroxide 2,400 Mg/10 Ml Cup) 2,400 mg PO DAILY PRN PRN Reason: Constipation Melatonin (Melatonin 3 Mg Tablet) 3 mg PO HS PRN PRN Reason: Insomnia Methylprednisolone Sodium Succinate (Methylprednisolone Sod Succi 40 Mg/Ml 1 Ml Vial) 40 mg IV Q8HR [facility] Last Admin: 03/12/21 07:55 Dose: 40 mg Documented by: Metoprolol Tartrate (Metoprolol Tartrate 25 Mg Tab) 25 mg PO BID [facility] Last Admin: 03/12/21 07:56 Dose: 25 mg Documented by: Miscellaneous Information (Rx Info: Iv Contrast Was Given 1 Each Misc) 1 each MISCELLANE DAILY PRN PRN Reason: Per Protocol Stop: 03/13/21 22:15 Naloxone HCl (Naloxone 0.4 Mg/Ml 1 Ml Vial) 0.2 mg IV Q2M PRN PRN Reason: Opioid Reversal Ondansetron HCl (Ondansetron 4 Mg/2 Ml Vial) 4 mg IVP Q8HR PRN PRN Reason: Nausea And Vomiting Past medical history to include: Coronary artery disease with stent, COPD, stroke with some mild right-sided weakness, hyperlipidemia, hypertension, obstructive sleep apnea uses CPAP, TB 1985, hiatal hernia, sleep gastrectomy in 2018, surgery for thoracic aortic aneurysm, 4 L of oxygen at home Social history: Started smoking age of 15 stopped in 2011. One pack a day. Alcohol occasionally. Lives with her grandson. Occasionally uses a cane or a walker. Physical examination: VITAL SIGNS: 98.2, 58, 18, 150/83, 98% on 4 L GENERAL: BMI 29.3, reclining in bed, some shortness of breath EYES: Pupils equal. Conjunctiva normal. HEENT: External appearance of nose and ears normal, oral cavity grossly normal. NECK: JVD not raised; masses not palpable. HEART: First and second heart sounds are normal; edemai, especially in the left lower extremity LUNGS: Respiratory rate increased, decreased breath sounds. ABDOMEN: Soft, nontender, liver spleen not palpable, no masses palpable. PSYCH: Alert and oriented x3; mood and affect anxious NEUROLOGICAL: Cranial nerves grossly intact; no facial asymmetry, mild right hemiparesis INVESTIGATIONS, reviewed in the clinical context: WBC 10.9 hemoglobin 14.3 platelets 284 potassium 3.6 creatinine 0.61 Troponin I less than 0.012 EKG tracing personally reviewed by me-normal sinus rhythm 57-rate Chest x-ray film personally reviewed by me-hyperinflation. Underwent vascular stent. No obvious infiltrates Assessment and plan: -Acute severe COPD exacerbation in an ex-smoker: Slow to respond- on bronchodilators, IV and inhaled steroids. Long-acting beta agonist. -Pulmonary embolism ruled out -Coronary artery disease with stent continue with Lopressor, Lipitor -Mild right hemiparesis from prior stroke -Hyperlipidemia, 20 mg Lipitor -Essential hypertension, amlodipine 10 mg daily, Lopressor 25 mg twice a day -Obstructive sleep apnea uses CPAP , continue the same -Hiatal hernia -History of sleeve gastrectomy -Depression not otherwise specified, 20 mg Celexa -DVT prophylaxis , Subcu Lovenox -Lower extremity edema secondary to amlodipine. KOLE stockings. Continue bronchodilators, steroids, patient told to sit up in a chair and eat his meals and not to lie down for at least 2 hours after meal.
[2021-03-12 16:43] LABS: Glucose,Whole Blood 111 mg/dL (75-99)
[2021-03-12 21:43] LABS: Glucose,Whole Blood 131 mg/dL (75-99)
[2021-03-13] MEDS: methylPREDNISolone SOD SUCCI 40 MG/ML 1 ML VIAL IV SCH ×4 (01:20→23:49)
[2021-03-13] MEDS: IPRATROPIUM-ALBUTEROL 3 ML NEB INHALATION SCH ×7 (04:03→23:38)
[2021-03-13 07:35] LABS: Glucose,Whole Blood 112 mg/dL (75-99)
[2021-03-13] MEDS: INSULIN ASPART (NovoLOG) 100 UNIT/ML VIAL SQ SCH ×4 (07:41→21:15)
[2021-03-13] MEDS: METOPROLOL TARTRATE 25 MG TAB PO SCH ×2 (07:48→21:38)
[2021-03-13] MEDS: CITALOPRAM HYDROBROMIDE 20 MG TAB PO SCH (07:48)
[2021-03-13] MEDS: amLODIPine 10 MG TAB PO SCH (07:48)
[2021-03-13] MEDS: ATORVASTATIN 20 MG TAB PO SCH (07:48)
[2021-03-13] MEDS: ASPIRIN 81 MG PO SCH (07:48)
[2021-03-13] MEDS: FORMOTEROL FUMARATE 20 MCG/2 ML NEBU INHALATION SCH ×2 (09:23→21:03)
[2021-03-13] MEDS: BUDESONIDE 0.5 MG/2 ML NEBU INHALATION SCH ×2 (09:23→21:03)
[2021-03-13 11:38] LABS: Glucose,Whole Blood 137 mg/dL (75-99)
[2021-03-13 16:49] LABS: Glucose,Whole Blood 159 mg/dL (75-99)
[2021-03-13 21:00] LABS: Glucose,Whole Blood 125 mg/dL (75-99)
[2021-03-14] MEDS: IPRATROPIUM-ALBUTEROL 3 ML NEB INHALATION SCH ×4 (04:26→15:30)
[2021-03-14 06:57] LABS: Glucose,Whole Blood 117 mg/dL (75-99)
[2021-03-14] MEDS: BUDESONIDE 0.5 MG/2 ML NEBU INHALATION SCH (07:26)
[2021-03-14] MEDS: FORMOTEROL FUMARATE 20 MCG/2 ML NEBU INHALATION SCH (07:26)
[2021-03-14] MEDS: INSULIN ASPART (NovoLOG) 100 UNIT/ML VIAL SQ SCH ×2 (07:47→11:18)
[2021-03-14] MEDS: CITALOPRAM HYDROBROMIDE 20 MG TAB PO SCH (08:23)
[2021-03-14] MEDS: METOPROLOL TARTRATE 25 MG TAB PO SCH (08:23)
[2021-03-14] MEDS: methylPREDNISolone SOD SUCCI 40 MG/ML 1 ML VIAL IV SCH (08:23)
[2021-03-14] MEDS: amLODIPine 10 MG TAB PO SCH (08:23)
[2021-03-14] MEDS: ASPIRIN 81 MG PO SCH (08:23)
[2021-03-14] MEDS: ATORVASTATIN 20 MG TAB PO SCH (08:23)
[2021-03-14 11:10] LABS: Glucose,Whole Blood 102 mg/dL (75-99)
[2021-03-14 15:25] VITALS: BP 142/88; RESP 18; TEMP 98.8
[2021-03-14] MEDS ORDERED: predniSONE 20 MG TAB PO STA (15:28)
[2021-03-14 15:42] VITALS: PULSE 66
== END 2021-03-14 16:10 | disposition home or self-care (01) | DRG 191 ==
LOC: EC 11:08 → 4SSUR 12:50
PROVIDERS: ADMIT Hospitalist; ATTEND Hospitalist
DX: J44.1 Chronic obstructive pulmonary disease with (acute) exacerbation (principal); I69.351 Hemiplegia and hemiparesis following cerebral infarction affecting right dominant side; I10 Essential (primary) hypertension; I25.10 Atherosclerotic heart disease of native coronary artery without angina pectoris; I25.2 Old myocardial infarction; Z98.84 Bariatric surgery status; Z95.5 Presence of coronary angioplasty implant and graft; Z86.11 Personal history of tuberculosis; Z82.5 Family history of asthma and other chronic lower respiratory diseases; Z82.49 Family history of ischemic heart disease and other diseases of the circulatory system; Z79.899 Other long term (current) drug therapy; Z79.82 Long term (current) use of aspirin; G47.33 Obstructive sleep apnea (adult) (pediatric); F32.9 Major depressive disorder, single episode, unspecified; Z87.891 Personal history of nicotine dependence
CPT/HCPCS: 36415; 71046; 71275; 80053; 83605; 83735; 84484; 85025; 85610; 85730; 87040; 93005; 94640; 94760; 96374; 99285

== ENCOUNTER 2021-06-27 10:49 | Inpatient (IN) | payer MEDICARE ==
[2021-06-27] MEDS ORDERED: MORPHINE SULFATE 2 MG/ML SYRINGE IVP STA (11:13)
[2021-06-27] MEDS ORDERED: ASPIRIN 81 MG PO STA (11:17)
--- NOTE | 2021-06-27 11:39 | ED ---
General Adult HPI - General Chief complaint: Chest Pain Stated complaint: chest pain/lindsey Time Seen by Provider: 06/27/21 11:02 Source: patient, RN notes reviewed Mode of arrival: ambulatory Limitations: no limitations - History of Present Illness Initial comments: 71-year-old female presents to the emergency Department with complaints of right anterior chest pain, onset this morning. States pain is worsened with movement, deep breathing, and raising her arms over her head. Reports pain radiates straight through to the back around the shoulder blade. Patient denies injury. States pain does not radiate down the arms or into the neck or jaw. Patient does have shortness of breath, but states this is normal for her. States she used her nebulizer this morning as usual and is wearing 3 L of oxygen as she does at home. Reports taking Motrin prior to arrival with no improvement in symptoms. Denies fever, headache, dizziness, abdominal pain, constipation, diarrhea, dysuria, or lower extremity edema. - Related Data Home Medications Medication Instructions Recorded Confirmed amLODIPine BESYLATE 10 mg PO DAILY 03/09/19 06/27/21 Albuterol Nebulized [Ventolin 2.5 mg INHALATION RT-QID PRN 09/14/20 06/27/21 Nebulized] Albuterol Sulfate [Proair Hfa] 2 puff INHALATION RT-QID PRN 12/04/20 06/27/21 Fluticasone/Umeclidin/Vilanter 1 puff INHALATION RT-DAILY 06/27/21 06/27/21 [Trelegy Ellipta 100-62.5-25] Metoprolol Tartrate [Lopressor] 25 mg PO DAILY 06/27/21 06/27/21 Omeprazole 40 mg PO DAILY 06/27/21 06/27/21 predniSONE 10 mg PO DAILY 06/27/21 06/27/21 Allergies Allergy/AdvReac Type Severity Reaction Status Date / Time Penicillins Allergy Rash/Hives Verified 06/27/21 13:44 Sulfa (Sulfonamide Allergy Rash/Hives Verified 06/27/21 13:44 Antibiotics) sulfamethoxazole Allergy Rash/Hives Verified 06/27/21 13:44 [From Bactrim] trimethoprim [From Bactrim] Allergy Rash/Hives Verified 06/27/21 13:44 levofloxacin [From Levaquin] AdvReac Nausea & Verified 06/27/21 13:44 Vomiting Review of Systems ROS Statement: Those systems with pertinent positive or pertinent negative responses have been documented in the HPI. ROS Other: All systems not noted in ROS Statement are negative. Past Medical History Past Medical History: Coronary Artery Disease (CAD), Cancer, COPD, CVA/TIA, Hyperlipidemia, Hypertension, Myocardial Infarction ([place]), Sleep Apnea/CPAP/BIPAP Additional Past Medical History / Comment(s): CAD, previous history of coronary stent, thoracic aortic aneurysm with previous endovascular stent grafting, remote history of tuberculosis back in 1985, twice a with an AHI of 21, not uti lizing her BiPAP, skin cancer, history of CVA with residual right-sided weakness, obesity with a previous history of sleep gastrectomy, COPD Last Myocardial Infarction Date:: 01/25/2006 History of Any Multi-Drug Resistant Organisms: None Reported Past Surgical History: Bariatric Surgery, Cholecystectomy, Heart Catheterization With Stent, Hernia Repair Additional Past Surgical History / Comment(s): Cyst removed from thyroid, HEART CATH WITH STENT X2, SURGERY FOR Thoracic Aortic Aneurysm, Ventral hernia repair with mesh July 2017. EGD, COLONOSCOPY. sleeve gastrectomy 05/19/18 (Dr. Jose Hamilton) Past Anesthesia/Blood Transfusion Reactions: Postoperative Nausea & Vomiting (PONV) Date of Last Stent Placement:: 2009 Past Psychological History: Depression Smoking Status: Former smoker Past Alcohol Use History: Occasional Past Drug Use History: Marijuana - Past Family History Father Family Medical History: COPD, Myocardial Infarction ([place]) Mother Family Medical History: Hypertension Additional Family Medical History / Comment(s): Pacemaker, heart issues Sister(s) Family Medical History: Cancer General Exam Limitations: no limitations General appearance: alert, other (This is a well-developed female who presents to the emergency department wearing 3 L of oxygen per baseline. Initial temperature 97.3, pulse 72, respirations 20, blood pressure 123/73, pulse ox 94% on 3 L.) Eye exam: Present: normal appearance, PERRL, EOMI. Absent: scleral icterus, conjunctival injection, periorbital swelling ENT exam: Present: normal exam, normal oropharynx, mucous membranes moist Neck exam: Present: normal inspection. Absent: tenderness, meningismus, lympha denopathy Respiratory exam: Present: wheezes (Scattered faint wheezes bilaterally and throughout the lung aden), decreased breath sounds. Absent: respiratory distress, rales, rhonchi, chest wall tenderness, accessory muscle use Cardiovascular Exam: Present: regular rate, normal rhythm, normal heart sounds GI/Abdominal exam: Present: soft, normal bowel sounds. Absent: distended, tenderness, guarding, rebound, rigid Extremities exam: Present: normal inspection, full ROM, normal capillary refill. Absent: tenderness, pedal edema, joint swelling, calf tenderness Neurological exam: Present: alert, oriented X3, CN II-XII intact Psychiatric exam: Present: anxious Skin exam: Present: warm, dry, intact, normal color. Absent: rash Course Vital Signs 06/27/21 06/27/21 06/27/21 10:53 11:14 11:42 Temperature 97.3 F L Pulse Rate 72 Respiratory 20 44 H 18 Rate Blood Pressure 123/73 98/70 O2 Sat by Pulse 94 L Oximetry 06/27/21 06/27/21 06/27/21 12:00 12:36 13:00 Temperature Pulse Rate 67 65 Respiratory 18 17 Rate Blood Pressure 98/70 101/67 101/67 O2 Sat by Pulse 98 98 Oximetry 06/27/21 06/27/21 06/27/21 13:43 14:00 14:27 Temperature Pulse Rate 86 86 84 Respiratory 18 34 H 18 Rate Blood Pressure 118/76 O2 Sat by Pulse Oximetry 06/27/21 06/27/21 06/27/21 14:35 15:00 16:00 Temperature Pulse Rate 86 84 82 Respiratory 18 22 36 H Rate Blood Pressure 107/65 114/81 O2 Sat by Pulse 97 97 Oximetry 06/27/21 06/27/21 06/27/21 17:45 18:13 18:36 Temperature Pulse Rate 121 H 131 H 116 H Respiratory 45 H 43 H 40 H Rate Blood Pressure 141/126 153/96 O2 Sat by Pulse 100 Oximetry 06/27/21 06/27/21 06/27/21 18:45 18:49 18:55 Temperature Pulse Rate 112 H 111 H Respiratory 32 H 35 H Rate Blood Pressure 88/51 82/20 O2 Sat by Pulse 93 L 90 L Oximetry 06/27/21 06/27/21 06/27/21 19:00 20:00 21:00 Temperature Pulse Rate 96 87 Respiratory 24 20 Rate Blood Pressure 94/72 111/70 120/67 O2 Sat by Pulse 95 95 95 Oximetry 12/02/0806/27/21 06/27/21 21:56 21:59 22:10 Temperature Pulse Rate 93 97 100 Respiratory 18 Rate Blood Pressure 116/84 O2 Sat by Pulse 97 Oximetry 06/27/21 22:20 Temperature Pulse Rate 98 Respiratory Rate Blood Pressure O2 Sat by Pulse Oximetry - Reevaluation(s) Reevaluation #1: 06/27/21 17:15 Patient tachypneic upon evaluation with Dr. Masters present at bedside. Discussed BiPap, patient agreeable. Respiratory notified. Repeat chest X-ray obtained. Due to patient's persistent distress, my attending Dr. Pena assumed patient's care. Medical Decision Making - Medical Decision Making 71-year-old oxygen dependent female history of CAD and COPD presents to the emergency Department for evaluation of right-sided chest pain that began this morning. Upon exam, patient appears uncomfortable and reports shortness of breath, though is not experiencing increased work of breathing. Oxygen saturation is 94% on 3 L; she is not febrile nor tachycardic. Laboratory studi es were obtained and show several abnormal findings. Patient is hypokalemic with a potassium of 3.0; this was supplemented orally. Patient's white blood cell count is elevated; leukocytosis could be secondary to chronic steroid use as no infectious process is identified. Patient does have diminished renal function which does appear to be a recurrent issue for her periodically. Of consequence is patient's markedly elevated d-dimer. Therefore CT was ordered and does show urinary embolism in the right middle and lower lobes. Right lower lobe consolidation and/or mass also identified. Additionally, patient's troponin is elevated; EKG changes include diffuse T wave inversion. Patient is started on a heparin drip and will be admitted to the hospital for further evaluation and treatment. Spoke with Dr. Masters regarding this patient; he agrees to accept this admission with pulmonology and cardiology consults. Prior to patient's transport to the floor she became tachypneic, tachycardic, hypertensive, and labored breathing. Patient appeared anxious. Placed on BiPAP and DuoNeb was ordered. Chest x-ray was obtained and shows new right pneumothorax. BiPap discontinued. My attending, Dr. Pena, assumed care of patient at that time. - Lab Data Result diagrams: 07/01/21 05:49 07/01/21 05:49 Lab Results 06/27/21 06/27/21 06/27/21 Range/Units 11:19 11:19 11:19 WBC 16.2 H (3.8-10.6) k/uL RBC 4.74 (3.80-5.40) m/uL Hgb 14.9 (11.4-16.0) gm/dL Hct 44.3 (34.0-46.0) % MCV 93.5 (80.0-100.0) fL MCH 31.3 (25.0-35.0) pg MCHC 33.5 (31.0-37.0) g/dL RDW 13.4 (11.5-15.5) % Plt Count 212 (150-450) k/uL MPV 7.3 Neutrophils % (Manual) 96 % Band Neuts % (Manual) 1 % Lymphocytes % (Manual) 1 % Monocytes % (Manual) 2 % Neutrophils # (Manual) 15.70 H (1.3-7.7) k/uL Lymphocytes # (Manual) 0.16 L (1.0-4.8) k/uL Monocytes # (Manual) 0.32 (0-1.0) k/uL Nucleated RBCs 0 (0-0) /100 WBC Manual Slide Review Performed Toxic Granulation Present Poikilocytosis (manual Present Anisocytosis (manual) Present PT 10.3 (9.0-12.0) sec INR 1.0 (<1.2) APTT 21.2 L (22.0-30.0) sec D-Dimer 23.30 H (<0.60) mg/L FEU Sodium 137 (137-145) mmol/L Potassium 3.0 L (3.5-5.1) mmol/L Chloride 102 (98-107) mmol/L Carbon Dioxide 23 (22-30) mmol/L Anion Gap 12 mmol/L BUN 28 H (7-17) mg/dL Creatinine 1.14 H (0.52-1.04) mg/dL Est GFR (CKD-EPI)AfAm 56 (>60 ml/min/1.73 sqM) Est GFR (CKD-EPI)NonAf 49 (>60 ml/min/1.73 sqM) Glucose 93 (74-99) mg/dL Calcium 9.1 (8.4-10.2) mg/dL Magnesium 1.8 (1.6-2.3) mg/dL Total Bilirubin 0.6 (0.2-1.3) mg/dL AST 20 (14-36) U/L ALT 11 (4-34) U/L Alkaline Phosphatase 31 L (38-126) U/L Troponin I (0.000-0.034) ng/mL NT-Pro-B Natriuret Pep pg/mL Total Protein 6.5 (6.3-8.2) g/dL Albumin 3.8 (3.5-5.0) g/dL Coronavirus (PCR) (Not Detectd) 06/27/21 06/27/21 06/27/21 Range/Units 11:19 11:19 13:10 WBC (3.8-10.6) k/uL RBC (3.80-5.40) m/uL Hgb (11.4-16.0) gm/dL Hct (34.0-46.0) % MCV (80.0-100.0) fL MCH (25.0-35.0) pg MCHC (31.0-37.0) g/dL RDW (11.5-15.5) % Plt Count (150-450) k/uL MPV Neutrophils % (Manual) % Band Neuts % (Manual) % Lymphocytes % (Manual) % Monocytes % (Manual) % Neutrophils # (Manual) (1.3-7.7) k/uL Lymphocytes # (Manual) (1.0-4.8) k/uL Monocytes # (Manual) (0-1.0) k/uL Nucleated RBCs (0-0) /100 WBC Manual Slide Review Toxic Granulation Poikilocytosis (manual Anisocytosis (manual) PT (9.0-12.0) sec INR (<1.2) APTT (22.0-30.0) sec D-Dimer (<0.60) mg/L FEU Sodium (137-145) mmol/L Potassium (3.5-5.1) mmol/L Chloride (98-107) mmol/L Carbon Dioxide (22-30) mmol/L Anion Gap mmol/L BUN (7-17) mg/dL Creatinine (0.52-1.04) mg/dL Est GFR (CKD-EPI)AfAm (>60 ml/min/1.73 sqM) Est GFR (CKD-EPI)NonAf (>60 ml/min/1.73 sqM) Glucose (74-99) mg/dL Calcium (8.4-10.2) mg/dL Magnesium (1.6-2.3) mg/dL Total Bilirubin (0.2-1.3) mg/dL AST (14-36) U/L ALT (4-34) U/L Alkaline Phosphatase (38-126) U/L Troponin I 0.508 H* (0.000-0.034) ng/mL NT-Pro-B Natriuret Pep 688 pg/mL Total Protein (6.3-8.2) g/dL Albumin (3.5-5.0) g/dL Coronavirus (PCR) Not Detected (Not Detectd) - EKG Data EKG shows normal: sinus rhythm Rate: normal EKG Comments: EKG was obtained at 1105 and shows sinus rhythm with PVC. Ventricular rate 75, NE interval 124, QRS duration 90, QT/QTC 350/390. T-wave inversion is noted. - Radiology Data Radiology results: report reviewed, image reviewed Two-view chest x-ray was obtained. Report was reviewed in its entirety. Impression per Dr. Nelson this new right greater than left basilar reticulonodular opacities are concerning for COVID-19 infection and current environment[address] angio chest contrast was obtained. Report was reviewed in its entirety. Impression per Dr. Nevarez is acute pulmonary embolism right middle and lower lobe arteries and secondary and tertiary branches. Right lower lobe consolidation and/or mass. A large pneumatocele or cavitation is adjacent. Follow-up is recommended. Disposition Clinical Impression: Pulmonary embolus, right, Elevated troponin, Hypokalemia, Acute renal in sufficiency, COPD (chronic obstructive pulmonary disease), Pneumothorax Disposition: ADMITTED IP TO THIS HOSP Condition: Critical Decision Date: 06/27/21 Decision Time: 16:15
[2021-06-27 11:49] LABS: Albumin 3.8 g/dL (3.5-5.0); Calcium 9.1 mg/dL (8.4-10.2); Magnesium 1.8 mg/dL (1.6-2.3); Total Bilirubin 0.6 mg/dL (0.2-1.3); Total Protein 6.5 g/dL (6.3-8.2)
[2021-06-27] MEDS ORDERED: POTASSIUM CHLORIDE ER 20 MEQ TAB.ER PO STA (12:07)
[2021-06-27 12:16] LABS: HCT 44.3 % (34.0-46.0); HGB 14.9 gm/dL (11.4-16.0); MCH 31.3 pg (25.0-35.0); MCHC 33.5 g/dL (31.0-37.0); MCV 93.5 fL (80.0-100.0); Mean Platelet Volume 7.3; Platelet Count 212 k/uL (150-450); RBC 4.74 m/uL (3.80-5.40); RDW 13.4 % (11.5-15.5); WBC 16.2 k/uL (3.8-10.6)
[2021-06-27 12:56] LABS: Partial Thromboplastin Time 21.2 sec (22.0-30.0); Prothrombin Time 10.3 sec (9.0-12.0)
[2021-06-27 13:31] LABS: Band Neutrophils % 1 %; Lymphocytes # (M) 0.16 k/uL (1.0-4.8); Monocytes # (M) 0.32 k/uL (0-1.0); Neutrophils % (M) 96 %; Nucleated Red Blood Cells 0 /100 WBC (0-0); Total Cells Counted 100
[2021-06-27 13:33] LABS: Anisocytosis (M) Present; Poikilocytosis (M) Present; Toxic Granulation Present
--- NOTE | 2021-06-27 13:38 | XR ---
EXAMINATION TYPE: XR chest 2V DATE OF EXAM: 06/27/2021 COMPARISON: Chest x-ray March 11, 2021 HISTORY: Chest pain. TECHNIQUE: Frontal and lateral views of the chest are obtained. FINDINGS: The osseous structures are redemonstrated demineralized. Cardiac silhouette size stable an d within normal limits with lungs segment stent graft in the descending aorta redemonstrated. There i s coronary artery stent in the left circumflex distribution redemonstrated. Cholecystectomy clips are again seen. There are chronic parenchymal changes with new right greater than left bibasilar reticul onodular opacities. IMPRESSION: New right greater than left basilar reticulonodular opacities are concerning for covid-1 9 infection in current environment, correlate clinically.
[2021-06-27] MEDS ORDERED: SODIUM CHLORIDE 0.9% 1,000 ML IV STA (13:52)
[2021-06-27] MEDS ORDERED: IPRATROPIUM-ALBUTEROL 3 ML NEB INHALATION STA ×2 (14:02→17:37)
[2021-06-27] MEDS ORDERED: HEPARIN SODIUM 1,000 UN/ML (10ML VL) IV ONE (14:48)
[2021-06-27] MEDS ORDERED: HEPARIN SODIUM 1,000 UN/ML (10ML VL) IV PRN (14:48)
--- NOTE | 2021-06-27 14:52 | CT ---
CT CHEST FOR PULMONARY EMBOLISM. EXAMINATION TYPE: CT chest angio for PE DATE OF EXAM: 06/27/2021 INDICATION: ALBER, chest pain CT DLP: 301.5 mGycm, Automated exposure control for dose reduction was used. CONTRAST: Patient injected with 80 mL of Isovue 370. COMPARISON: 03/11/2021 TECHNIQUE: CT of the chest is performed on a spiral scan at 2 mm thick sections. Study is performed with intravenous contrast timed for evaluation for aortic dissection. Multiple secondary and tertiar y right mid and lower pulmonary artery pulmonary emboli are evident. Example image series 401 image 5 7, series 401 image 65. Report was called to the emergency room by Dr. Nevarez at the time of interpr etation. FINDINGS: Patient has a aortic stent from the aortic arch to nearly the diaphragm. Previous aneurysm is evident . There appears to be some endovascular leak into the aneurysm. Example series 401 image 86. No mediastinal or hilar adenopathy enlarged by CT criteria is evident. The ascending aorta diameter at the level of the main pulmonary artery is 3.7 cm. The main pulmonary artery diameter at the bifur cation is 3.8 cm. Large pneumatocele is in the posterior right lung there is adjacent infiltrate or consolidation. Cavi tation could be considered. Follow-up to clearing is recommended. Underlying mass is not excluded. Limited CT section through the upper abdomen are unremarkable. IMPRESSIONS: 1. Acute pulmonary embolism right middle and lower lobe arteries and secondary and tertiary branches. 2. Right lower lobe consolidation and/or mass. A large pneumatocele or cavitation is adjacent. Follow -up is recommended
[2021-06-27] MEDS: HEPARIN SOD,PORK IN 0.45% NACL 25,000 UNIT in 0.45% NACL 1 250ML.BAG IV SCH (15:01)
[2021-06-27] MEDS ORDERED: MORPHINE SULFATE 2 MG/ML SYRINGE IVP ONE (15:24)
[2021-06-27] MEDS ORDERED: IBUPROFEN 400 MG TAB PO PRN (16:01)
[2021-06-27] MEDS ORDERED: NALOXONE 0.4 MG/ML 1 ML VIAL IV PRN (16:01)
[2021-06-27] MEDS ORDERED: MORPHINE SULFATE 2 MG/ML SYRINGE IV PRN (16:01)
[2021-06-27] MEDS ORDERED: ALBUTEROL NEBULIZED 2.5 MG/3 ML INHALATION PRN (16:11)
[2021-06-27] MEDS ORDERED: ALBUTEROL HFA INHALER INHALATION PRN (16:11)
[2021-06-27] MEDS ORDERED: LACTULOSE 20 GM/30 ML CUP PO PRN (17:45)
[2021-06-27] MEDS ORDERED: MAG HYDROX/AL HYDROX/SIMETH 30 ML CUP PO PRN (17:45)
[2021-06-27] MEDS ORDERED: MELATONIN 3 MG TABLET PO PRN (17:45)
[2021-06-27] MEDS ORDERED: ONDANSETRON 4 MG/2 ML VIAL IVP PRN (17:45)
[2021-06-27] MEDS ORDERED: CALCIUM CARBONATE 500 MG CHEWABLE PO PRN (17:45)
--- NOTE | 2021-06-27 17:51 | P.HPIM ---
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 Chronic stable medical conditions include coronary artery disease with stent, some mild right-sided weakness from prior stroke, hypertension, hyperlipidemia, obstructive sleep apnea uses CPAP machine, TB in 1985, hiatal hernia, surgery for thoracic aortic aneurysm, sleeve gastrectomy [place] [address] Hamilton. Home oxygen 4 L Patient presented to the ER with some right-sided and right posterior pain. Worse with deep breathing. No trauma. More short of breath than baseline. No fever and chills. Some baseline cough. Appetite is fair.. Patient found to be in the ER started on IV heparin. Pulmonary was consulted. Patient's grandson at the bedside. Patient is vaccinated for COVID 19. Review of systems: GEN.: Tired EYES: None HEENT: None NECK: None RESPIRATORY: As above CARDIOVASCULAR: None GASTROINTESTINAL: None GENITOURINARY: None MUSCULOSKELETAL: None LYMPHATICS: None HEMATOLOGICAL: None PSYCHIATRY: None NEUROLOGICAL: None Past medical history to include: Coronary artery disease with stent, COPD, stroke with some mild right-sided weakness, hyperlipidemia, hypertension, obstructive sleep apnea uses CPAP, TB 1985, hiatal hernia, sleeve gastrectomy in 2018, surgery for thoracic aortic aneurysm, 4 L of oxygen at home Social history: Started smoking age of 15 stopped in 2011. One pack a day. Alcohol occasionally. Lives with her grandson. Occasionally uses a cane or a walker. Family history: [place], pacemaker, COPD Physical examination: VITAL SIGNS: Afebrile, 82, 24, 100/55, 97% on 3 L GENERAL: BMI 21, sitting up in bed, very short of breath EYES: Pupils equal. Conjunctiva normal. HEENT: External appearance of nose and ears normal, oral cavity grossly normal. NECK: JVD not raised; masses not palpable. HEART: First and second heart sounds are normal; mild edema in the left lower extremity LUNGS: Respiratory rate increased, decreased breath sounds. Not able to speak in full sentence. Accessory muscles a working. ABDOMEN: Soft, nontender, liver spleen not palpable, no masses palpable. PSYCH: Alert and oriented x3; mood and affect anxious NEUROLOGICAL: Cranial nerves grossly intact; no facial asymmetry, mild right hemiparesis LYMPHATICS: No lymph nodes palpable in the axilla and neck INVESTIGATIONS, reviewed in the clinical context: White count 16.2 hemoglobin 14.9 platelets 212 d-dimer 23.3 sodium 137 potassium 3 BUN 28 creatinine 1.14 Troponin I 0.508 proBNP 688 Coronavirus [PCR] not detected EKG tracing personally reviewed by me-normal sinus rhythm. Flipped T waves. The anterolateral leads. PVC. Computed tomography scan of the chest: Aortic stent. Large pneumatocele is in the posterior right lung. Acute PE in the right middle and lower lobe arteries secondary intensity branches. Right lower lobe consolidation and/or mass. Chest x-ray film personally reviewed by me-right basilar infiltrate, aortic graft Assessment and plan: -Acute PE in the right middle and lower lobe arteries and secondary branches, but troponin leak. IV heparin. Consultation to pulmonary none -Chronic hypoxic respiratory failure from COPD On home oxygen 4 L -Acute hypoxic respiratory failure from PE Oxygen supplementation. Patient probably need BiPAP. -Acute severe COPD exacerbation in an ex-smoker- on bronchodilators, IV and inhaled steroids. Long-acting beta agonist. -Coronary artery disease with stent Lopressor, -Mild right hemiparesis from prior stroke -Hyperlipidemia, -Essential hypertension, amlodipine 10 mg daily, Lopressor 25 mg a day -Obstructive sleep apnea uses CPAP , continue the same -Hiatal hernia -History of sleeve gastrectomy -Full code Pulmonary consulted. DuoNeb. Inhaled and IV steroids. Long-acting beta agonist. Resume home medications. IV heparin. IV Solu-Medrol. Past Medical History Past Medical History: Coronary Artery Disease (CAD), Cancer, COPD, CVA/TIA, Hyperlipidemia, Hypertension, Myocardial Infarction ([place]), Sleep Apnea/CPAP/BIPAP Additional Past Medical History / Comment(s): CAD, previous history of coronary stent, thoracic aortic aneurysm with previous endovascular stent grafting, remote history of tuberculosis back in 1985, twice a with an AHI of 21, not utilizing her BiPAP, skin cancer, history of CVA with residual right-sided weakness, obesity with a previous history of sleep gastrectomy, COPD Last Myocardial Infarction Date:: 01/25/2006 History of Any Multi-Drug Resistant Organisms: None Reported Past Surgical History: Bariatric Surgery, Cholecystectomy, Heart Catheterization With Stent, Hernia Repair Additional Past Surgical History / Comment(s): Cyst removed from thyroid, HEART CATH WITH STENT X2, SURGERY FOR Thoracic Aortic Aneurysm, Ventral hernia repair with mesh July 2017. EGD, COLONOSCOPY. sleeve gastrectomy 05/19/18 (Dr. Jose Hamilton) Past Anesthesia/Blood Transfusion Reactions: Postoperative Nausea & Vomiting (PONV) Date of Last Stent Placement:: 2009 Past Psychological History: Depression Smoking Status: Former smoker Past Alcohol Use History: Occasional Past Drug Use History: Marijuana - Past Family History Father Family Medical History: COPD, Myocardial Infarction ([place]) Mother Family Medical History: Hypertension Additional Family Medical History / Comment(s): Pacemaker, heart issues Sister(s) Family Medical History: Cancer Medications and Allergies Home Medications Medication Instructions Recorded Confirmed Type amLODIPine BESYLATE 10 mg PO DAILY 03/09/19 06/27/21 History Albuterol Nebulized [Ventolin 2.5 mg INHALATION RT-QID PRN 09/14/20 06/27/21 History Nebulized] Albuterol Sulfate [Proair Hfa] 2 puff INHALATION RT-QID PRN 12/04/20 06/27/21 History Fluticasone/Umeclidin/Vilanter 1 puff INHALATION RT-DAILY 06/27/21 06/27/21 History [Trelegy Ellipta 100-62.5-25] Metoprolol Tartrate [Lopressor] 25 mg PO DAILY 06/27/21 06/27/21 History Omeprazole 40 mg PO DAILY 06/27/21 06/27/21 History predniSONE 10 mg PO DAILY 06/27/21 06/27/21 History Allergies Allergy/AdvReac Type Severity Reaction Status Date / Time Penicillins Allergy Rash/Hives Verified 06/27/21 13:44 Sulfa (Sulfonamide Allergy Rash/Hives Verified 06/27/21 13:44 Antibiotics) sulfamethoxazole Allergy Rash/Hives Verified 06/27/21 13:44 [From Bactrim] trimethoprim [From Bactrim] Allergy Rash/Hives Verified 06/27/21 13:44 levofloxacin [From Levaquin] AdvReac Nausea & Verified 06/27/21 13:44 Vomiting Physical Exam Vitals: Vital Signs Temp Pulse Resp BP Pulse Ox 06/27/21 16:00 82 24 100/55 97 06/27/21 15:00 83 20 100/69 97 06/27/21 14:35 86 18 06/27/21 14:27 84 18 06/27/21 13:43 86 18 06/27/21 13:00 86 18 99/58 06/27/21 12:36 67 18 101/67 98 06/27/21 11:42 18 98/70 06/27/21 10:53 97.3 F L 72 20 123/73 94 L Intake and Output 06/27/21 06/27/21 06/27/21 06:59 14:59 22:59 Other: Weight 52.163 kg Results CBC & Chem 7: 06/27/21 11:19 06/27/21 11:19 Labs: Abnormal Lab Results - Last 24 Hours (Table) 06/27/21 06/27/21 06/27/21 Range/Units 11:19 11:19 11:19 WBC 16.2 H (3.8-10.6) k/uL Neutrophils # (Manual) 15.70 H (1.3-7.7) k/uL Lymphocytes # (Manual) 0.16 L (1.0-4.8) k/uL APTT 21.2 L (22.0-30.0) sec D-Dimer 23.30 H (<0.60) mg/L FEU Potassium 3.0 L (3.5-5.1) mmol/L BUN 28 H (7-17) mg/dL Creatinine 1.14 H (0.52-1.04) mg/dL Alkaline Phosphatase 31 L (38-126) U/L Troponin I (0.000-0.034) ng/mL 06/27/21 Range/Units 11:19 WBC (3.8-10.6) k/uL Neutrophils # (Manual) (1.3-7.7) k/uL Lymphocytes # (Manual) (1.0-4.8) k/uL APTT (22.0-30.0) sec D-Dimer (<0.60) mg/L FEU Potassium (3.5-5.1) mmol/L BUN (7-17) mg/dL Creatinine (0.52-1.04) mg/dL Alkaline Phosphatase (38-126) U/L Troponin I 0.508 H* (0.000-0.034) ng/mL
[2021-06-27] MEDS: IPRATROPIUM 0.5 MG/2.5 ML NEBU INHALATION SCH ×2 (17:59→21:59)
[2021-06-27] MEDS ORDERED: CEFEPIME 2 GM in SODIUM CHLORIDE 0.9% 100 ML IVPB STA (18:16)
[2021-06-27] MEDS ORDERED: ALBUTEROL NEBULIZED 2.5 MG/3 ML INHALATION STA (18:18)
[2021-06-27] MEDS ORDERED: IPRATROPIUM 0.5 MG/2.5 ML NEBU INHALATION STA (18:18)
[2021-06-27] MEDS ORDERED: LIDOCAINE 1%-EPI 1:100,000 20 ML VIAL SQ STA (18:23)
[2021-06-27 18:30] LABS: ABG Base Excess -3.6 mmol/L; ABG HCO3 23 mmol/L (21-25); ABG Oxygen Saturation 99.6 % (94-97); ABG PCO2 47 mmHg (35-45); ABG PH 7.29 (7.35-7.45); ABG PO2 263 mmHg (83-108); ABG TCO2 24 mmol/L (19-24); Allen Test Performed? Yes
--- NOTE | 2021-06-27 18:47 | ED ---
Medical Decision Making - Medical Decision Making She was boarding in the emergency department when I was requested by nurse practitioner to evaluate and treat the patient. Patient briefly is a 71-year-old female presents to the emergency department for chest pain shortness of breath per she had a CT angiogram that showed peripheral pulmonary embolism. She was started on heparin. There was concern by the hospitalist that in the body of the initial CT read there was concern of endovascular leak. I had Dr. Webber of radiology reevaluate the film. He states that he does appear to be an aneurysm of the descending thoracic aorta with blood clot. That does not appear to be change compared to old exam. No evidence of endovascular leak. Given these findings patient continued on heparin. She was reevaluated at the bedside for worsening shortness of breath. Chest x-ray was ordered showing right-sided pneumothorax. BiPAP was removed. Thoravent was placed. Patient tolerated chested placement well. Postprocedure x-ray shows adequately place chest tube with reexpanded lung. Case was discussed with the property analyst is willing to accept patient care to the ICU however there are no ICU beds currently available. Patient will likely board in emergency department until bed becomes available. Echo cardiogram is ordered. Patient reevaluated bedside at 7:20 PM. She is improved showing no signs of respiratory distress and has stable vitals. - Lab Data Result diagrams: 06/27/21 11:19 06/27/21 11:19 Lab Results 06/27/21 06/27/21 06/27/21 Range/Units 11:19 11:19 11:19 WBC 16.2 H (3.8-10.6) k/uL RBC 4.74 (3.80-5.40) m/uL Hgb 14.9 (11.4-16.0) gm/dL Hct 44.3 (34.0-46.0) % MCV 93.5 (80.0-100.0) fL MCH 31.3 (25.0-35.0) pg MCHC 33.5 (31.0-37.0) g/dL RDW 13.4 (11.5-15.5) % Plt Count 212 (150-450) k/uL MPV 7.3 Neutrophils % (Manual) 96 % Band Neuts % (Manual) 1 % Lymphocytes % (Manual) 1 % Monocytes % (Manual) 2 % Neutrophils # (Manual) 15.70 H (1.3-7.7) k/uL Lymphocytes # (Manual) 0.16 L (1.0-4.8) k/uL Monocytes # (Manual) 0.32 (0-1.0) k/uL Nucleated RBCs 0 (0-0) /100 WBC Manual Slide Review Performed Toxic Granulation Present Poikilocytosis (manual Present Anisocytosis (manual) Present PT 10.3 (9.0-12.0) sec INR 1.0 (<1.2) APTT 21.2 L (22.0-30.0) sec D-Dimer 23.30 H (<0.60) mg/L FEU Sodium 137 (137-145) mmol/L Potassium 3.0 L (3.5-5.1) mmol/L Chloride 102 (98-107) mmol/L Carbon Dioxide 23 (22-30) mmol/L Anion Gap 12 mmol/L BUN 28 H (7-17) mg/dL Creatinine 1.14 H (0.52-1.04) mg/dL Est GFR (CKD-EPI)AfAm 56 (>60 ml/min/1.73 sqM) Est GFR (CKD-EPI)NonAf 49 (>60 ml/min/1.73 sqM) Glucose 93 (74-99) mg/dL Calcium 9.1 (8.4-10.2) mg/dL Magnesium 1.8 (1.6-2.3) mg/dL Total Bilirubin 0.6 (0.2-1.3) mg/dL AST 20 (14-36) U/L ALT 11 (4-34) U/L Alkaline Phosphatase 31 L (38-126) U/L Troponin I (0.000-0.034) ng/mL NT-Pro-B Natriuret Pep pg/mL Total Protein 6.5 (6.3-8.2) g/dL Albumin 3.8 (3.5-5.0) g/dL Coronavirus (PCR) (Not Detectd) 06/27/21 06/27/21 06/27/21 Range/Units 11:19 11:19 13:10 WBC (3.8-10.6) k/uL RBC (3.80-5.40) m/uL Hgb (11.4-16.0) gm/dL Hct (34.0-46.0) % MCV (80.0-100.0) fL MCH (25.0-35.0) pg MCHC (31.0-37.0) g/dL RDW (11.5-15.5) % Plt Count (150-450) k/uL MPV Neutrophils % (Manual) % Band Neuts % (Manual) % Lymphocytes % (Manual) % Monocytes % (Manual) % Neutrophils # (Manual) (1.3-7.7) k/uL Lymphocytes # (Manual) (1.0-4.8) k/uL Monocytes # (Manual) (0-1.0) k/uL Nucleated RBCs (0-0) /100 WBC Manual Slide Review Toxic Granulation Poikilocytosis (manual Anisocytosis (manual) PT (9.0-12.0) sec INR (<1.2) APTT (22.0-30.0) sec D-Dimer (<0.60) mg/L FEU Sodium (137-145) mmol/L Potassium (3.5-5.1) mmol/L Chloride (98-107) mmol/L Carbon Dioxide (22-30) mmol/L Anion Gap mmol/L BUN (7-17) mg/dL Creatinine (0.52-1.04) mg/dL Est GFR (CKD-EPI)AfAm (>60 ml/min/1.73 sqM) Est GFR (CKD-EPI)NonAf (>60 ml/min/1.73 sqM) Glucose (74-99) mg/dL Calcium (8.4-10.2) mg/dL Magnesium (1.6-2.3) mg/dL Total Bilirubin (0.2-1.3) mg/dL AST (14-36) U/L ALT (4-34) U/L Alkaline Phosphatase (38-126) U/L Troponin I 0.508 H* (0.000-0.034) ng/mL NT-Pro-B Natriuret Pep 688 pg/mL Total Protein (6.3-8.2) g/dL Albumin (3.5-5.0) g/dL Coronavirus (PCR) Not Detected (Not Detectd) Disposition Clinical Impression: Pulmonary embolus, right, Elevated troponin, Hypokalemia, Acute renal insufficiency, COPD (chronic obstructive pulmonary disease), Pneumothorax Disposition: ADMITTED IP TO THIS HOSP Condition: Critical Procedures - [place] Protocol (Time Out) Procedure Performed:: right sided thoravent Performing Provider: Andi Pena Nurse: Fang Bermudez Patient Identification (2 identifiers required): Chart, Verbal, Arm Band, Birthdate 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
--- NOTE | 2021-06-27 18:53 | XR ---
EXAMINATION TYPE: XR chest 1V DATE OF EXAM: 06/27/2021 COMPARISON: Today HISTORY: Short of breath TECHNIQUE: 2 views FINDINGS: There is a moderate size right pneumothorax. There is extensive consolidation right lower l obe. Left lung is clear. There is stent in the descending thoracic aorta. IMPRESSION: There is a new large right-sided pneumothorax compared to exam 5 hours ago. There is incr easing airspace consolidation in the right lower lobe compared to recent exam. No heart failure. Ther e is some degree of tension. Mediastinum shifted slightly to the left side. This exam was discussed with emergency room attending staff 7:00 PM.
[2021-06-27] MEDS: SODIUM CHLORIDE 0.9% 1,000 ML IV SCH (18:54)
[2021-06-27] MEDS ORDERED: SODIUM CHLORIDE 0.9% 1,000 ML IV ONE (18:55)
[2021-06-27] MEDS: methylPREDNISolone SOD SUCCI 40 MG/ML 1 ML VIAL IV SCH (19:01)
--- NOTE | 2021-06-27 19:12 | XR ---
EXAMINATION TYPE: XR chest 2V DATE OF EXAM: 06/27/2021 COMPARISON: Today HISTORY: Chest tube placement TECHNIQUE: 2 views FINDINGS: There is right-sided chest tube over the right upper lung field. There is significant clear ing of the right side pneumothorax. There is extensive airspace consolidation right lower lobe. Left lung is clear. There is no heart failure. IMPRESSION: Significant clearing of the right side pneumothorax compared to recent exam. No evidence of tension.
[2021-06-27] MEDS: FORMOTEROL FUMARATE 20 MCG/2 ML NEBU INHALATION SCH (21:59)
[2021-06-27] MEDS: BUDESONIDE 1 MG/2 ML NEBU INHALATION SCH (21:59)
[2021-06-27 22:35] LABS: Glucose,Whole Blood 108 mg/dL (75-99)
[2021-06-28] MEDS: ACETAMINOPHEN TAB 325 MG TAB PO PRN ×2 (03:00→17:30)
[2021-06-28] MEDS: IPRATROPIUM 0.5 MG/2.5 ML NEBU INHALATION SCH ×6 (03:20→20:00)
[2021-06-28 04:14] LABS: HCT 42.9 % (34.0-46.0); HGB 13.4 gm/dL (11.4-16.0); MCH 30.5 pg (25.0-35.0); MCHC 31.4 g/dL (31.0-37.0); MCV 97.3 fL (80.0-100.0); Mean Platelet Volume 7.7; Platelet Count 136 k/uL (150-450); RBC 4.41 m/uL (3.80-5.40); RDW 12.9 % (11.5-15.5); WBC 3.3 k/uL (3.8-10.6)
[2021-06-28] MEDS: SODIUM CHLORIDE 0.9% 1,000 ML IV SCH ×4 (04:57→22:40)
[2021-06-28 05:06] LABS: African American GFR (CKD) >90 (>60 ml/min/1.73 sqM); Anion Gap 10 mmol/L; Blood Urea Nitrogen 26 mg/dL (7-17); Calcium 7.4 mg/dL (8.4-10.2); Carbon Dioxide 18 mmol/L (22-30); Chloride 107 mmol/L (98-107); Glucose 89 mg/dL (74-99); Non-African American GFR(CKD) 83 (>60 ml/min/1.73 sqM); Potassium 2.8 mmol/L (3.5-5.1); Sodium 135 mmol/L (137-145)
[2021-06-28] MEDS: LORazepam 0.5 MG TAB PO PRN ×2 (05:18→17:54)
[2021-06-28] MEDS: methylPREDNISolone SOD SUCCI 40 MG/ML 1 ML VIAL IV SCH ×2 (07:17→10:22)
[2021-06-28] MEDS ORDERED: Potassium Replacement Protocol 1 EACH MISC MISCELLANE PRN (07:34)
[2021-06-28] MEDS ORDERED: IPRATROPIUM 0.5 MG/2.5 ML NEBU INHALATION SCH (08:00)
[2021-06-28] MEDS ORDERED: SYMBICORT 80-4.5 MCG INHALER INHALATION SCH (08:00)
[2021-06-28] MEDS: BUDESONIDE 1 MG/2 ML NEBU INHALATION SCH ×2 (08:09→20:00)
[2021-06-28] MEDS: FORMOTEROL FUMARATE 20 MCG/2 ML NEBU INHALATION SCH ×2 (08:09→20:00)
[2021-06-28] MEDS: POTASSIUM CHLORIDE 10 MEQ in WATER FOR INJECTION 1 100ML.BAG IVPB SCH ×6 (08:16→15:10)
--- NOTE | 2021-06-28 08:16 | XR ---
EXAMINATION TYPE: XR chest 1V portable DATE OF EXAM: 06/28/2021 COMPARISON: 06/27/2021 INDICATION: Pneumothorax, chest tube removal TECHNIQUE: Single frontal view of the chest is obtained upright view. FINDINGS: The heart size is normal. Stent is within the aorta. The pulmonary vasculature is normal. Pleur-evac chest tube is present on the right. No pneumothorax is evident. Right lower lobe infiltrat e is present. Some fluid is not excluded. Note is made of scoliosis. IMPRESSION: 1. Right lower lobe infiltrate and/or fluid. 2. No pneumothorax.
[2021-06-28] MEDS: METOPROLOL TARTRATE 25 MG TAB PO SCH (08:34)
[2021-06-28 08:36] LABS: ALT 12 U/L (4-34); African American GFR (CKD) >90 (>60 ml/min/1.73 sqM); Albumin 2.5 g/dL (3.5-5.0); Alkaline Phosphatase <20 U/L (38-126); Anion Gap 8 mmol/L; Blood Urea Nitrogen 24 mg/dL (7-17); Calcium 7.1 mg/dL (8.4-10.2); Carbon Dioxide 18 mmol/L (22-30); Chloride 109 mmol/L (98-107); Glucose 85 mg/dL (74-99); Non-African American GFR(CKD) 85 (>60 ml/min/1.73 sqM); Sodium 135 mmol/L (137-145); Total Bilirubin 0.7 mg/dL (0.2-1.3); Total Protein 4.9 g/dL (6.3-8.2)
[2021-06-28] MEDS: PANTOPRAZOLE 40 MG TABLET PO SCH (08:37)
[2021-06-28 08:38] LABS: AST 31 U/L (14-36); Magnesium 1.5 mg/dL (1.6-2.3)
[2021-06-28 08:45] LABS: Band Neutrophils % 16 %; Lymphocytes # (M) 0.36 k/uL (1.0-4.8); Metamyelocytes # (M) 0.26 k/uL (0); Metamyelocytes % 8 %; Monocytes # (M) 0.26 k/uL (0-1.0); Myelocytes # (M) 0.13 k/uL (0); Myelocytes % 4 %; Neutrophils % (M) 53 %; Nucleated Red Blood Cells 0 /100 WBC (0-0); Total Cells Counted 100
[2021-06-28] MEDS ORDERED: HYDROmorphone 1 MG/ML 1 ML SYRINGE IVP PRN (08:57)
[2021-06-28] MEDS ORDERED: predniSONE 10 MG TAB PO SCH (09:00)
[2021-06-28 09:32] LABS: HCT 41.8 % (34.0-46.0); HGB 13.1 gm/dL (11.4-16.0); Hypochromasia Slight; MCH 31.4 pg (25.0-35.0); MCHC 31.5 g/dL (31.0-37.0); MCV 99.8 fL (80.0-100.0); Mean Platelet Volume 7.7; Platelet Count 126 k/uL (150-450); RBC 4.18 m/uL (3.80-5.40); RDW 12.9 % (11.5-15.5); WBC 3.9 k/uL (3.8-10.6)
[2021-06-28] MEDS ORDERED: Magnesium Replacement Protocol 1 EACH MISC MISCELLANE PRN (09:46)
--- NOTE | 2021-06-28 10:00 | ECHOF ---
Referral Reason:PE, Elevated Troponin MEASUREMENTS -------- HEIGHT: 157.5 cm WEIGHT: 52.2 kg BP: IVSd: 1.0 cm (0.6 - 1.1) LVIDd: 4.7 cm (3.9 - 5.3) LVPWd: 1.1 cm (0.6 - 1.1) EDV(Teich): 100 ml IVSs: 1.2 cm LVIDs: 3.6 cm LVPWs: 1.5 cm %IVS Thck: 19 % ESV(Teich): 55 ml EF(Teich): 45 % %FS: 23 % SV(Teich): 45 ml LA Diam: 3.6 cm (2.7 - 3.8) Ao Diam: 3.2 cm (2.0 - 3.7) MV E Gus: 0.40 m/s MV DecT: 261 ms MV Dec [place]: 1.5 m/s MV A Gus: 0.66 m/s MV E/A Ratio: 0.61 MV PHT: 76 ms TR Vmax: 1.43 m/s TR maxP.19 mmHg RAP: 5.00 mmHg RVSP: 13.19 mmHg FINDINGS -------- Undetermined rhythm. This was a technically adequate study. The left ventricular size is normal. Overall left ventricular systolic function is low-normal with, an EF between 50 - 55 %. The right ventricle is normal in size. The left atrial size is normal. The right atrial size is normal. The aortic valve was not well visualized. There is mild aortic regurgitation. Mild mitral regurgitation is present. Mild tricuspid regurgitation present. Right ventricular systolic pressure is normal at < 35 mmHg. The pulmonic valve was not well visualized. The aortic root size is normal. There is no pericardial effusion. CONCLUSIONS -------- 1. The left ventricular size is normal. 2. Overall left ventricular systolic function is low-normal with, an EF between 50 - 55 %. 3. The right ventricle is normal in size. 4. The left atrial size is normal. 5. The right atrial size is normal. 6. The aortic valve was not well visualized. 7. There is mild aortic regurgitation. 8. Mild mitral regurgitation is present. 9. Mild tricuspid regurgitation present. 10. The pulmonic valve was not well visualized. 11. The aortic root size is normal. 12. There is no pericardial effusion. CONTROLS ENGINEER: Venita Encinas RDCS
[2021-06-28] MEDS: MAGNESIUM SULFATE-D5W PMX 1 GM in DEXTROSE/WATER 1 100ML.BAG IVPB SCH ×2 (10:22→12:54)
[2021-06-28] MEDS: amLODIPine 10 MG TAB PO SCH (10:24)
--- NOTE | 2021-06-28 10:38 | P.CRDCN ---
History of Present Illness History of present illness: HISTORY OF PRESENTING ILLNESS This is a pleasant 71-year-old with past medical history significant for coronary artery disease status post PCI last approximately 2016, hypertension, endovascular aortic aneurysm repair, COPD on home oxygen. 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 She has been having a cough and shortness breath for approximately one month without any fevers or chills or sick contacts. She presented to the ER secondary to increased right back pain and shortness breath. CAT scan was performed which showed right lower lobe infiltrate with a larger appearing bleb as well as right-sided pulmonary embolism. She was placed on a heparin drip and then while awaiting admission to the hospital patient had worsening respiratory distress with chest x-ray showing new pneumothorax. Therefore a Thoravent was placed on the right side. She was transferred to ICU and then was noted to go in A. fib with RVR with heart rates in the 130s to 140s. Her home amlodipine has been held and she is on her home metoprolol. Her blood pressures have been borderline. Echocardiogram was performed 06/27/2021 which showed EF 50-55%, RV normal size, mild aortic regurgitation. Today she is complaining of continued dyspnea however somewhat better than yesterday as well as mainly right back pain and chest pain worse with deep inspiration. DIAGNOSTICS Blood work showed initial white blood cell count 16.2 down to 3.3, D Dimer 3.3, potassium 3.0, BUN 28, creatinine 1.1, troponin 0.5, 0.35, 0.23, proBNP 688, and a virus not detected. Initial EKG shows normal sinus rhythm, left axis deviation, Q waves inferiorly, nonspecific T-wave inversions laterally. Repeat EKG this morning shows A. fib with RVR. REVIEW OF SYSTEMS At the time of my exam: CONSTITUTIONAL: Denies fever or chills. CARDIOVASCULAR: + atypical chest pain, +shortness of breath, no orthopnea, PND o r palpitations. RESPIRATORY: +cough. GASTROINTESTINAL: Denies abdominal pain, diarrhea, constipation, nausea or vomiting. MUSCULOSKELETAL: Denies myalgias. NEUROLOGIC: Denies numbness, tingling or weakness. ENDOCRINE: Denies fatigue, weight change, polydipsia or polyurina. GENITOURINARY: Denies burning, hematuria or urgency with micturation. HEMATOLOGIC: Denies history of anemia or bleeding. PHYSICAL EXAMINATION Vital signs reviewed. CONSTITUTIONAL: No apparent distress, ill appearing HEENT: Head is normocephalic. Pupils are equal, round. Sclerae anicteric. Mucous membranes of the mouth are moist. No JVD. No carotid bruit. CHEST EXAMINATION: +Rhonchi right base, mild wheeze HEART EXAMINATION: Irregularly irregular rate and rhythm. S1, S2 heard. No murmurs, gallops or rub. ABDOMEN: Soft, nontender. Positive bowel sounds. EXTREMITIES: 2+ peripheral pulses, no lower extremity edema and no calf tenderness. NEUROLOGIC EXAMINATION: Patient is awake, alert and oriented x3. ASSESSMENT 1. Acute on chronic hypoxic respiratory failure 2. Acute pulmonary embolism, without cor pulmonale 3. Elevated troponins likely related to hypoxia, PE 4. History of CAD 5. New-onset atrial fibrillation 6. Right lower lobe infiltrate with cough times approximately one month, rule out infection versus malignancy versus other 7. Acute pneumothorax status post Thoravent 8. History of endovascular aortic repair 9. COPD on home oxygen PLAN Patient with complex presentation. It appears she has had a cough without any significant fevers however CT and chest x-ray D showed new right lower lobe infiltrate concerning for possible pneumonia versus malignancy. Additionally there was a large bleb noted on CAT scan with further development of pneumothorax noted after CT was performed likely related to bleb bursting. There is additional PE noted and new onset of atrial fibrillation. Do not feel elevated troponins are entirely related to PE and given no significant right ventricular dilation and normal RVSP with concern of endovascular leak would not recommend [employer]. Elevated troponins appear to be a type II mechanism. Continue with heparin drip and continue supportive care. We will add amiodarone for the atrial fibrillation as well as metoprolol. Hold the rest of her home antihy pertensive medications given borderline blood pressure. Further recommendations to follow. Prognosis guarded. Past Medical History Past Medical History: Coronary Artery Disease (CAD), Cancer, COPD, CVA/TIA, Hyperlipidemia, Hypertension, Myocardial Infarction ([place]), Sleep Apnea/CPAP/BIPAP Additional Past Medical History / Comment(s): CAD, previous history of coronary stent, thoracic aortic aneurysm with previous endovascular stent grafting, remote history of tuberculosis back in 1985, twice a with an AHI of 21, not utilizing her BiPAP, skin cancer, history of CVA with residual right-sided weakness, obesity with a previous history of sleep gastrectomy, COPD Last Myocardial Infarction Date:: 01/25/2006 History of Any Multi-Drug Resistant Organisms: None Reported Past Surgical History: Bariatric Surgery, Cholecystectomy, Heart Catheterization With Stent, Hernia Repair Additional Past Surgical History / Comment(s): Cyst removed from thyroid, HEART CATH WITH STENT X2, SURGERY FOR Thoracic Aortic Aneurysm, Ventral hernia repair with mesh July 2017. EGD, COLONOSCOPY. sleeve gastrectomy 05/19/18 (Dr. Jose Hamilton) Past Anesthesia/Blood Transfusion Reactions: Postoperative Nausea & Vomiting (PONV) Date of Last Stent Placement:: 2009 Past Psychological History: Depression Smoking Status: Former smoker Past Alcohol Use History: Occasional Past Drug Use History: Marijuana - Past Family History Father Family Medical History: COPD, Myocardial Infarction ([place]) Mother Family Medical History: Hypertension Additional Family Medical History / Comment(s): Pacemaker, heart issues Sister(s) Family Medical History: Cancer Medications and Allergies Home Medications Medication Instructions Recorded Confirmed Type amLODIPine BESYLATE 10 mg PO DAILY 03/09/19 06/27/21 History Albuterol Nebulized [Ventolin 2.5 mg INHALATION RT-QID PRN 09/14/20 06/27/21 History Nebulized] Albuterol Sulfate [Proair Hfa] 2 puff INHALATION RT-QID PRN 12/04/20 06/27/21 History Fluticasone/Umeclidin/Vilanter 1 puff INHALATION RT-DAILY 06/27/21 06/27/21 History [Trelegy Ellipta 100-62.5-25] Metoprolol Tartrate [Lopressor] 25 mg PO DAILY 06/27/21 06/27/21 History Omeprazole 40 mg PO DAILY 06/27/21 06/27/21 History predniSONE 10 mg PO DAILY 06/27/21 06/27/21 History Allergies Allergy/AdvReac Type Severity Reaction Status Date / Time Penicillins Allergy Rash/Hives Verified 06/27/21 13:44 Sulfa (Sulfonamide Allergy Rash/Hives Verified 06/27/21 13:44 Antibiotics) sulfamethoxazole Allergy Rash/Hives Verified 06/27/21 13:44 [From Bactrim] trimethoprim [From Bactrim] Allergy Rash/Hives Verified 06/27/21 13:44 levofloxacin [From Levaquin] AdvReac Nausea & Verified 06/27/21 13:44 Vomiting Physical Exam Vitals: Vital Signs Temp Pulse Resp BP Pulse Ox 06/28/21 07:00 82 24 129/65 96 06/28/21 06:00 92 30 H 125/74 94 L 06/28/21 05:00 85 29 H 121/64 95 06/28/21 04:00 98.0 F 90 27 H 116/73 90 L 06/28/21 03:33 96 06/28/21 03:22 90 94 L 06/28/21 03:00 96 24 129/68 93 L 06/28/21 02:00 93 32 H 123/58 95 06/28/21 01:00 89 15 131/83 94 L 06/28/21 00:00 97.7 F 85 28 H 121/64 97 06/27/21 23:00 96 33 H 114/75 97 06/27/21 22:51 97.7 F 06/27/21 22:31 30 H 06/27/21 22:20 98 06/27/21 22:10 100 06/27/21 21:59 97 06/27/21 21:56 93 18 116/84 97 06/27/21 21:00 87 20 120/67 95 06/27/21 20:00 111/70 95 06/27/21 19:00 96 24 94/72 95 06/27/21 18:55 111 H 35 H 06/27/21 18:49 82/20 90 L 06/27/21 18:45 112 H 32 H 88/51 93 L 06/27/21 18:36 116 H 40 H 153/96 06/27/21 18:13 131 H 43 H 141/126 100 06/27/21 17:45 121 H 45 H 06/27/21 16:00 82 36 H 114/81 97 06/27/21 15:00 84 22 107/65 97 06/27/21 14:35 86 18 06/27/21 14:27 84 18 06/27/21 14:00 86 34 H 118/76 06/27/21 13:43 86 18 06/27/21 13:00 65 17 101/67 98 06/27/21 12:36 67 18 101/67 98 06/27/21 12:00 98/70 06/27/21 11:42 18 98/70 06/27/21 11:14 44 H 06/27/21 10:53 97.3 F L 72 20 123/73 94 L Intake and Output 06/27/21 06/28/21 06/28/21 22:59 06:59 14:59 Intake Total 130 1030 130 Output Total 0 300 45 Balance 130 730 85 Intake: IV 130 780 130 130 130 780 130 Oral 250 Output: Chest Tube Drainage 0 30 0 Thora-Vent Right Mid- 0 30 0 Clavicular Chest Urine 270 45 Other: Voiding Method Indwelling Catheter Weight 52.163 kg 75.1 kg Results 06/28/21 07:45 06/28/21 07:45 Cardiac Enzymes 06/27/21 06/27/21 06/27/21 Range/Units 11:19 11:19 18:59 AST 20 (14-36) U/L Troponin I 0.508 H* 0.352 H* (0.000-0.034) ng/mL 06/27/21 06/28/21 Range/Units 21:34 07:45 AST 31 (14-36) U/L Troponin I 0.238 H* (0.000-0.034) ng/mL Coagulation 06/27/21 06/27/21 06/28/21 Range/Units 11:19 21:34 04:02 PT 10.3 (9.0-12.0) sec APTT 21.2 L 54.1 H 56.3 H (22.0-30.0) sec CBC 06/27/21 06/28/21 06/28/21 Range/Units 11:19 04:02 07:45 WBC 16.2 H 3.3 L 3.9 (3.8-10.6) k/uL RBC 4.74 4.41 4.18 (3.80-5.40) m/uL Hgb 14.9 13.4 13.1 (11.4-16.0) gm/dL Hct 44.3 42.9 41.8 (34.0-46.0) % Plt Count 212 136 L 126 L (150-450) k/uL Comprehensive Metabolic Panel 06/27/21 06/28/21 06/28/21 Range/Units 11:19 04:02 07:45 Sodium 137 135 L 135 L (137-145) mmol/L Potassium 3.0 L 2.8 L 3.0 L (3.5-5.1) mmol/L Chloride 102 107 109 H (98-107) mmol/L Carbon Dioxide 23 18 L 18 L (22-30) mmol/L BUN 28 H 26 H 24 H (7-17) mg/dL Creatinine 1.14 H 0.73 0.72 (0.52-1.04) mg/dL Glucose 93 89 85 (74-99) mg/dL Calcium 9.1 7.4 L 7.1 L (8.4-10.2) mg/dL AST 20 31 (14-36) U/L ALT 11 12 (4-34) U/L Alkaline Phosphatase 31 L <20 L (38-126) U/L Total Protein 6.5 4.9 L (6.3-8.2) g/dL Albumin 3.8 2.5 L (3.5-5.0) g/dL Current Medications Generic Name Dose Route Start Last Admin Trade Name Freq PRN Reason Stop Dose Admin Acetaminophen 650 mg 06/27/21 16:01 06/28/21 03:00 Acetaminophen Tab 325 Mg Tab PO 650 mg Q6HR PRN Administration Mild Pain or Fever > 100.5 Al Hydroxide/Mg Hydroxide 15 ml 06/27/21 17:45 Mag Hydrox/Al Hydrox/Simeth 30 Ml Cup PO Q6HR PRN Indigestion Albuterol Sulfate 2.5 mg 06/27/21 16:11 Albuterol Nebulized 2.5 Mg/3 Ml INHALATION RT-QID PRN Shortness Of Breath Amlodipine Besylate 10 mg 06/28/21 09:00 06/28/21 10:24 Amlodipine 10 Mg Tab PO Not Given DAILY BRE Budesonide 1 mg 06/27/21 20:00 06/28/21 08:09 Budesonide 1 Mg/2 Ml Nebu INHALATION Not Given RT-BID BRE Calcium Carbonate/Glycine 1,000 mg 06/27/21 17:45 Calcium Carbonate 500 Mg Chewable PO Q4HR PRN Dyspepsia Formoterol Fumarate 20 mcg 06/27/21 20:00 06/28/21 08:09 Formoterol Fumarate 20 Mcg/2 Ml Nebu INHALATION Not Given RT-BID BRE Heparin Sodium (Porcine) 0 unit 06/27/21 14:48 Heparin Sodium 1,000 Un/Ml (10ml Vl) IV PER PROTOCOL PRN Low PTT Protocol Hydromorphone HCl 1 mg 06/28/21 09:11 Hydromorphone 1 Mg/Ml 1 Ml Syringe IVP Q3HR PRN Pain Heparin Sodium/Sodium Chloride 250 mls @ 9.389 mls/hr 06/27/21 15:00 06/27/21 15:01 25,000 unit/ Sodium Chloride IV 18 units/kg/hr .Q24H BRE 9.389 mls/hr Administration Protocol 18 UNITS/KG/HR Sodium Chloride 1,000 mls @ 130 mls/hr 06/27/21 16:15 06/28/21 08:18 Saline 0.9% IV 130 mls/hr .Q7H42M BRE Administration Potassium Chloride 10 meq/ IV 100 mls @ 100 mls/hr 06/28/21 08:30 06/28/21 10:23 Solution IVPB 06/28/21 14:29 100 mls/hr Q1H BRE Administration Protocol Magnesium Sulfate/Dextrose 1 100 mls @ 100 mls/hr 06/28/21 10:00 06/28/21 10:22 gm/ IV Solution IVPB 06/28/21 11:59 100 mls/hr Q1H BRE Administration Ipratropium [place] 0.5 mg 06/27/21 18:00 06/28/21 08:09 Ipratropium 0.5 Mg/2.5 Ml Nebu INHALATION Not Given Q4H BRE Lactulose 20 gm 06/27/21 17:45 Lactulose 20 Gm/30 Ml Cup PO DAILY PRN Constipation Lorazepam 0.5 mg 06/27/21 17:45 06/28/21 05:18 Lorazepam 0.5 Mg Tab PO 0.5 mg Q6HR PRN Administration Anxiety Melatonin 3 mg 06/27/21 17:45 Melatonin 3 Mg Tablet PO HS PRN Insomnia Methylprednisolone Sodium Succinate 40 mg 06/27/21 18:00 06/28/21 10:22 Methylprednisolone Sod Succi 40 Mg/Ml 1 Ml Vial IV 40 mg Q8H BRE Administration Metoprolol Tartrate 25 mg 06/28/21 09:00 06/28/21 08:34 Metoprolol Tartrate 25 Mg Tab PO 25 mg DAILY BRE Administration Miscellaneous Information 1 each 06/28/21 07:34 Potassium Replacement Protocol 1 Each Misc MISCELLANE DAILY PRN Per Protocol Protocol Miscellaneous Information 1 each 06/28/21 09:46 Magnesium Replacement Protocol 1 Each [facility] MISCELLANE DAILY PRN Per Protocol Protocol Naloxone HCl 0.2 mg 06/27/21 16:01 Naloxone 0.4 Mg/Ml 1 Ml Vial IV Q2M PRN Opioid Reversal Ondansetron HCl 4 mg 06/27/21 17:45 Ondansetron 4 Mg/2 Ml Vial IVP Q8HR PRN Nausea And Vomiting Pantoprazole Sodium 40 mg 06/28/21 09:00 06/28/21 08:37 Pantoprazole 40 Mg Tablet PO 40 mg DAILY BRE Administration Intake and Output 06/27/21 06/28/21 06/28/21 22:59 06:59 14:59 Intake Total 130 1030 130 Output Total 0 300 45 Balance 130 730 85 Intake: IV 130 780 130 130 130 780 130 Oral 250 Output: Chest Tube Drainage 0 30 0 Thora-Vent Right Mid- 0 30 0 Clavicular Chest Urine 270 45 Other: Voiding Method Indwelling Catheter Weight 52.163 kg 75.1 kg 06/28/21 07:45 06/28/21 07:45
[2021-06-28] MEDS ORDERED: AMIODARONE IN DEXTROSE,ISO-OSM 360 MG/200 ML PLAST..BAG IV ONE (10:40)
[2021-06-28] MEDS ORDERED: AMIODARONE IN DEXTROSE,ISO-OSM 150 MG/100 ML PLAST..BAG IV ONE (10:40)
[2021-06-28] MEDS ORDERED: DEXTROSE 5% IN WATER 100 ML with AMIODARONE 150 MG IV ONE (10:50)
--- NOTE | 2021-06-28 10:55 | P.CONS ---
History of Present Illness - Reason for Consult Consult date: 06/28/21 wound care - History of Present Illness This is a 64-year-old patient with a past medical history significant for no PD with a CPAP machine, CVA, hyperlipidemia, hypertension, [place], skin cancer. She is a former smoker. Denies diabetes. She is being seen in ICU for nonhealing ulceration to the left perineum. Due to patient's condition were unable to visualize the ulceration. Photos were reviewed ulceration measures hugo roximately 1 x 0.5 cm with granulation seen in the wound bed and moderate slough. The wound edges appears to attach to the wound base unknown if there is any tunneling or undermining. Review Of Systems: Constitutional: No fever, no chills, no night sweats. No weight change. Integumentary:reports wounds, no lesions. No rash or pruritus. No unusual bruising. No change in hair or nails. Physical exam: General Appearance: Alert, cooperative, no distress, appears stated age. Skin: See HPI all other Skin color, texture, tugor normal, no rashes or lesions. Neurologic: Alert oriented x3 Assessment: 1. Nonhealing ulceration with fatty layer exposure to the perineum Plan: 1. Perineum: Apply triad cream daily Thank you for the consultation any questions please contact wound care center DNP note has been reviewed and discussed with Dr. Luis and the impression and plan of care has been directed as dictated. Past Medical History Past Medical History: Coronary Artery Disease (CAD), Cancer, COPD, CVA/TIA, Hyperlipidemia, Hypertension, Myocardial Infarction ([place]), Sleep Apnea/CPAP/BIPAP Additional Past Medical History / Comment(s): CAD, previous history of coronary stent, thoracic aortic aneurysm with previous endovascular stent grafting, remote history of tuberculosis back in 1985, twice a with an AHI of 21, not utilizing her BiPAP, skin cancer, history of CVA with residual right-sided weakness, obesity with a previous history of sleep gastrectomy, COPD Last Myocardial Infarction Date:: 01/25/2006 History of Any Multi-Drug Resistant Organisms: None Reported Past Surgical History: Bariatric Surgery, Cholecystectomy, Heart Catheterization With Stent, Hernia Repair Additional Past Surgical History / Comment(s): Cyst removed from thyroid, HEART CATH WITH STENT X2, SURGERY FOR Thoracic Aortic Aneurysm, Ventral hernia repair with mesh July 2017. EGD, COLONOSCOPY. sleeve gastrectomy 05/19/18 (Dr. Lazo in [facility]) Past Anesthesia/Blood Transfusion Reactions: Postoperative Nausea & Vomiting (PONV) Date of Last Stent Placement:: 2009 Past Psychological History: Depression Smoking Status: Former smoker Past Alcohol Use History: Occasional Past Drug Use History: Marijuana - Past Family History Father Family Medical History: COPD, Myocardial Infarction ([place]) Mother Family Medical History: Hypertension Additional Family Medical History / Comment(s): Pacemaker, heart issues Sister(s) Family Medical History: Cancer Medications and Allergies Home Medications Medication Instructions Recorded Confirmed Type amLODIPine BESYLATE 10 mg PO DAILY 03/09/19 06/27/21 History Albuterol Nebulized [Ventolin 2.5 mg INHALATION RT-QID PRN 09/14/20 06/27/21 History Nebulized] Albuterol Sulfate [Proair Hfa] 2 puff INHALATION RT-QID PRN 12/04/20 06/27/21 History Fluticasone/Umeclidin/Vilanter 1 puff INHALATION RT-DAILY 06/27/21 06/27/21 History [Trelegy Ellipta 100-62.5-25] Metoprolol Tartrate [Lopressor] 25 mg PO DAILY 06/27/21 06/27/21 History Omeprazole 40 mg PO DAILY 06/27/21 06/27/21 History predniSONE 10 mg PO DAILY 06/27/21 06/27/21 History Allergies Allergy/AdvReac Type Severity Reaction Status Date / Time Penicillins Allergy Rash/Hives Verified 06/27/21 13:44 Sulfa (Sulfonamide Allergy Rash/Hives Verified 06/27/21 13:44 Antibiotics) sulfamethoxazole Allergy Rash/Hives Verified 06/27/21 13:44 [From Bactrim] trimethoprim [From Bactrim] Allergy Rash/Hives Verified 06/27/21 13:44 levofloxacin [From Levaquin] AdvReac Nausea & Verified 06/27/21 13:44 Vomiting Physical Exam Vitals: Vital Signs Temp Pulse Resp BP Pulse Ox 06/28/21 07:00 82 24 129/65 96 06/28/21 06:00 92 30 H 125/74 94 L 06/28/21 05:00 85 29 H 121/64 95 06/28/21 04:00 98.0 F 90 27 H 116/73 90 L 06/28/21 03:33 96 06/28/21 03:22 90 94 L 06/28/21 03:00 96 24 129/68 93 L 06/28/21 02:00 93 32 H 123/58 95 06/28/21 01:00 89 15 131/83 94 L 06/28/21 00:00 97.7 F 85 28 H 121/64 97 06/27/21 23:00 96 33 H 114/75 97 06/27/21 22:51 97.7 F 06/27/21 22:31 30 H 06/27/21 22:20 98 06/27/21 22:10 100 06/27/21 21:59 97 06/27/21 21:56 93 18 116/84 97 06/27/21 21:00 87 20 120/67 95 06/27/21 20:00 111/70 95 06/27/21 19:00 96 24 94/72 95 06/27/21 18:55 111 H 35 H 06/27/21 18:49 82/20 90 L 06/27/21 18:45 112 H 32 H 88/51 93 L 06/27/21 18:36 116 H 40 H 153/96 06/27/21 18:13 131 H 43 H 141/126 100 06/27/21 17:45 121 H 45 H 06/27/21 16:00 82 36 H 114/81 97 06/27/21 15:00 84 22 107/65 97 06/27/21 14:35 86 18 06/27/21 14:27 84 18 06/27/21 14:00 86 34 H 118/76 06/27/21 13:43 86 18 06/27/21 13:00 65 17 101/67 98 06/27/21 12:36 67 18 101/67 98 06/27/21 12:00 98/70 06/27/21 11:42 18 98/70 06/27/21 11:14 44 H 06/27/21 10:53 97.3 F L 72 20 123/73 94 L Intake and Output 06/27/21 06/28/21 06/28/21 22:59 06:59 14:59 Intake Total 130 1030 130 Output Total 0 300 45 Balance 130 730 85 Intake: IV 130 780 130 130 130 780 130 Oral 250 Output: Chest Tube Drainage 0 30 0 Thora-Vent Right Mid- 0 30 0 Clavicular Chest Urine 270 45 Other: Voiding Method Indwelling Catheter Weight 52.163 kg 75.1 kg Results CBC & Chem 7: 06/28/21 07:45 06/28/21 07:45 Labs: Abnormal Lab Results - Last 24 Hours (Table) 06/27/21 06/27/21 06/27/21 Range/Units 11:19 11:19 11:19 WBC 16.2 H (3.8-10.6) k/uL Plt Count (150-450) k/uL Neutrophils # (Manual) 15.70 H (1.3-7.7) k/uL Lymphocytes # (Manual) 0.16 L (1.0-4.8) k/uL Metamyelocytes # (Man) (0) k/uL Myelocytes # (Manual) (0) k/uL APTT 21.2 L (22.0-30.0) sec D-Dimer 23.30 H (<0.60) mg/L FEU ABG pH (7.35-7.45) ABG pCO2 (35-45) mmHg ABG pO2 (83-108) mmHg ABG O2 Saturation (94-97) % Sodium (137-145) mmol/L Potassium 3.0 L (3.5-5.1) mmol/L Chloride (98-107) mmol/L Carbon Dioxide (22-30) mmol/L BUN 28 H (7-17) mg/dL Creatinine 1.14 H (0.52-1.04) mg/dL POC Glucose (mg/dL) (75-99) mg/dL Calcium (8.4-10.2) mg/dL Magnesium (1.6-2.3) mg/dL Alkaline Phosphatase 31 L (38-126) U/L Troponin I (0.000-0.034) ng/mL Total Protein (6.3-8.2) g/dL Albumin (3.5-5.0) g/dL 06/27/21 06/27/21 06/27/21 Range/Units 11:19 18:26 18:59 WBC (3.8-10.6) k/uL Plt Count (150-450) k/uL Neutrophils # (Manual) (1.3-7.7) k/uL Lymphocytes # (Manual) (1.0-4.8) k/uL Metamyelocytes # (Man) (0) k/uL Myelocytes # (Manual) (0) k/uL APTT (22.0-30.0) sec D-Dimer (<0.60) mg/L FEU ABG pH 7.29 L (7.35-7.45) ABG pCO2 47 H (35-45) mmHg ABG pO2 263 H (83-108) mmHg ABG O2 Saturation 99.6 H (94-97) % Sodium (137-145) mmol/L Potassium (3.5-5.1) mmol/L Chloride (98-107) mmol/L Carbon Dioxide (22-30) mmol/L BUN (7-17) mg/dL Creatinine (0.52-1.04) mg/dL POC Glucose (mg/dL) (75-99) mg/dL Calcium (8.4-10.2) mg/dL Magnesium (1.6-2.3) mg/dL Alkaline Phosphatase (38-126) U/L Troponin I 0.508 H* 0.352 H* (0.000-0.034) ng/mL Total Protein (6.3-8.2) g/dL Albumin (3.5-5.0) g/dL 06/27/21 06/27/21 06/27/21 Range/Units 21:34 21:34 22:34 WBC (3.8-10.6) k/uL Plt Count (150-450) k/uL Neutrophils # (Manual) (1.3-7.7) k/uL Lymphocytes # (Manual) (1.0-4.8) k/uL Metamyelocytes # (Man) (0) k/uL Myelocytes # (Manual) (0) k/uL APTT 54.1 H (22.0-30.0) sec D-Dimer (<0.60) mg/L FEU ABG pH (7.35-7.45) ABG pCO2 (35-45) mmHg ABG pO2 (83-108) mmHg ABG O2 Saturation (94-97) % Sodium (137-145) mmol/L Potassium (3.5-5.1) mmol/L Chloride (98-107) mmol/L Carbon Dioxide (22-30) mmol/L BUN (7-17) mg/dL Creatinine (0.52-1.04) mg/dL POC Glucose (mg/dL) 108 H (75-99) mg/dL Calcium (8.4-10.2) mg/dL Magnesium (1.6-2.3) mg/dL Alkaline Phosphatase (38-126) U/L Troponin I 0.238 H* (0.000-0.034) ng/mL Total Protein (6.3-8.2) g/dL Albumin (3.5-5.0) g/dL 06/28/21 06/28/21 06/28/21 Range/Units 04:02 04:02 04:02 WBC 3.3 L (3.8-10.6) k/uL Plt Count 136 L (150-450) k/uL Neutrophils # (Manual) (1.3-7.7) k/uL Lymphocytes # (Manual) 0.36 L (1.0-4.8) k/uL Metamyelocytes # (Man) 0.26 H (0) k/uL Myelocytes # (Manual) 0.13 H (0) k/uL APTT 56.3 H (22.0-30.0) sec D-Dimer (<0.60) mg/L FEU ABG pH (7.35-7.45) ABG pCO2 (35-45) mmHg ABG pO2 (83-108) mmHg ABG O2 Saturation (94-97) % Sodium 135 L (137-145) mmol/L Potassium 2.8 L (3.5-5.1) mmol/L Chloride (98-107) mmol/L Carbon Dioxide 18 L (22-30) mmol/L BUN 26 H (7-17) mg/dL Creatinine (0.52-1.04) mg/dL POC Glucose (mg/dL) (75-99) mg/dL Calcium 7.4 L (8.4-10.2) mg/dL Magnesium (1.6-2.3) mg/dL Alkaline Phosphatase (38-126) U/L Troponin I (0.000-0.034) ng/mL Total Protein (6.3-8.2) g/dL Albumin (3.5-5.0) g/dL 06/28/21 06/28/21 Range/Units 07:45 07:45 WBC (3.8-10.6) k/uL Plt Count 126 L (150-450) k/uL Neutrophils # (Manual) (1.3-7.7) k/uL Lymphocytes # (Manual) (1.0-4.8) k/uL Metamyelocytes # (Man) (0) k/uL Myelocytes # (Manual) (0) k/uL APTT (22.0-30.0) sec D-Dimer (<0.60) mg/L FEU ABG pH (7.35-7.45) ABG pCO2 (35-45) mmHg ABG pO2 (83-108) mmHg ABG O2 Saturation (94-97) % Sodium 135 L (137-145) mmol/L Potassium 3.0 L (3.5-5.1) mmol/L Chloride 109 H (98-107) mmol/L Carbon Dioxide 18 L (22-30) mmol/L BUN 24 H (7-17) mg/dL Creatinine (0.52-1.04) mg/dL POC Glucose (mg/dL) (75-99) mg/dL Calcium 7.1 L (8.4-10.2) mg/dL Magnesium 1.5 L (1.6-2.3) mg/dL Alkaline Phosphatase <20 L (38-126) U/L Troponin I (0.000-0.034) ng/mL Total Protein 4.9 L (6.3-8.2) g/dL Albumin 2.5 L (3.5-5.0) g/dL Assessment and Plan (1) Non-pressure chronic ulcer of skin of other sites with fat layer exposed Current Visit: Yes Status: Acute Code(s): L98.492 - NON-PRS CHRONIC ULCER OF SKIN OF SITES W FAT LAYER EXPOSED SNOMED Code(s): 81384406
[2021-06-28] MEDS ORDERED: AMIODARONE 360 MG in DEXTROSE 5% IN WATER 200 ML IV ONE ×2 (11:00)
[2021-06-28 11:14] LABS: Band Neutrophils % 39 %; Lymphocytes # (M) 0.27 k/uL (1.0-4.8); Metamyelocytes # (M) 0.35 k/uL (0); Metamyelocytes % 9 %; Myelocytes % 5 %; Neutrophils % (M) 35 %; Nucleated Red Blood Cells 0 /100 WBC (0-0); Total Cells Counted 100
[2021-06-28] MEDS: HYDROmorphone 1 MG/ML 1 ML SYRINGE IVP PRN ×2 (12:16→15:10)
[2021-06-28] MEDS: HYDROPHILIC CREAM 180 GM TUBE TOPICAL SCH (12:55)
[2021-06-28] MEDS: HEPARIN SOD,PORK IN 0.45% NACL 25,000 UNIT in 0.45% NACL 1 250ML.BAG IV SCH (13:01)
--- NOTE | 2021-06-28 13:32 | P.CNPUL ---
History of Present Illness Consult date: 06/28/21 Requesting physician: Murali Masters Reason for consult: COPD, pneumonia, pulmonary embolism Chief complaint: Shortness of breath History of present illness: This is a 71-year-old female with history of severe COPD, O2 dependent, normally sees Dr. Holland on outpatient basis. Patient is also known to have history of underlying coronary artery disease, previous PCI back in 2016. History of e ndovascular aortic aneurysm repair, patient has chronic hypoxic referral failure maintained on oxygen at home. She presented to the ER yesterday with one month history of cough and shortness of breath. And her symptoms have become significantly worse. Patient was also developing some right vague chest discomfort. Seen in the ER, and CT angiogram of the chest showed evidence of right sided pulmonary embolism. Patient was started on heparin, and later on a follow-up chest x-ray showed evidence of large right-sided pneumothorax. Patient had a chest tube placed by the ER physician/jaylen about with complete reexpansion of the right lung, however continued to have some questionable inflammatory changes in the right lower lobe or atelectatic changes in the right lower lobe. Patient was seen by many consultants because she developed atrial fibrillation with RVR, cardiology saw the patient and recommended treatment with amiodarone. Patient was also seen by thoracic surgery for a right-sided pneumothorax. And presently the chest tube seems to be in the proper position, and the lung seems to be fully expanded. Patient is also on heparin for her atrial fibrillation is also for her acute pulmonary embolism. Labs today showed W Zbigniew of 3.9 hemoglobin 13.1 and platelets are 1 26,000 electrolytes showed low potassium of 3.0 and that being addressed accordingly. Troponin is 0.238. Review of Systems CONSTITUTIONAL: Denies fever or chills. CARDIOVASCULAR: + atypical chest pain, +shortness of breath, no orthopnea, PND or palpitations. RESPIRATORY: +cough. GASTROINTESTINAL: Denies abdominal pain, diarrhea, constipation, nausea or vomiting. MUSCULOSKELETAL: Denies myalgias. NEUROLOGIC: Denies numbness, tingling or weakness. ENDOCRINE: Denies fatigue, weight change, polydipsia or polyurina. GENITOURINARY: Denies burning, hematuria or urgency with micturation. HEMATOLOGIC: Denies history of anemia or bleeding. Past Medical History Past Medical History: Coronary Artery Disease (CAD), Cancer, COPD, CVA/TIA, Hyperlipidemia, Hypertension, Myocardial Infarction ([place]), Sleep Apnea/CPAP/BIPAP Additional Past Medical History / Comment(s): CAD, previous history of coronary stent, thoracic aortic aneurysm with previous endovascular stent grafting, remote history of tuberculosis back in 1985, twice a with an AHI of 21, not utilizing her BiPAP, skin cancer, history of CVA with residual right-sided weakness, obesity with a previous history of sleep gastrectomy, COPD Last Myocardial Infarction Date:: 01/25/2006 History of Any Multi-Drug Resistant Organisms: None Reported Past Surgical History: Bariatric Surgery, Cholecystectomy, Heart Catheterization With Stent, Hernia Repair Additional Past Surgical History / Comment(s): Cyst removed from thyroid, HEART CATH WITH STENT X2, SURGERY FOR Thoracic Aortic Aneurysm, Ventral hernia repair with mesh July 2017. EGD, COLONOSCOPY. sleeve gastrectomy 05/19/18 (Dr. Jose Hamilton) Past Anesthesia/Blood Transfusion Reactions: Postoperative Nausea & Vomiting (PONV) Date of Last Stent Placement:: 2009 Past Psychological History: Depression Smoking Status: Former smoker Past Alcohol Use History: Occasional Past Drug Use History: Marijuana - Past Family History Father Family Medical History: COPD, Myocardial Infarction (VT) Mother Family Medical History: Hypertension Additional Family Medical History / Comment(s): Pacemaker, heart issues Sister(s) Family Medical History: Cancer Medications and Allergies Home Medications Medication Instructions Recorded Confirmed Type amLODIPine BESYLATE 10 mg PO DAILY 03/09/19 06/27/21 History Albuterol Nebulized [Ventolin 2.5 mg INHALATION RT-QID PRN 09/14/20 06/27/21 History Nebulized] Albuterol Sulfate [Proair Hfa] 2 puff INHALATION RT-QID PRN 12/04/20 06/27/21 History Fluticasone/Umeclidin/Vilanter 1 puff INHALATION RT-DAILY 06/27/21 06/27/21 History [Trelericha Ellipta 100-62.5-25] Metoprolol Tartrate [Lopressor] 25 mg PO DAILY 06/27/21 06/27/21 History Omeprazole 40 mg PO DAILY 06/27/21 06/27/21 History predniSONE 10 mg PO DAILY 06/27/21 06/27/21 History Allergies Allergy/AdvReac Type Severity Reaction Status Date / Time Penicillins Allergy Rash/Hives Verified 06/27/21 13:44 Sulfa (Sulfonamide Allergy Rash/Hives Verified 06/27/21 13:44 Antibiotics) sulfamethoxazole Allergy Rash/Hives Verified 06/27/21 13:44 [From Bactrim] trimethoprim [From Bactrim] Allergy Rash/Hives Verified 06/27/21 13:44 levofloxacin [From Levaquin] AdvReac Nausea & Verified 06/27/21 13:44 Vomiting Physical Exam Vitals: Vital Signs Temp Pulse Resp BP Pulse Ox 06/28/21 13:00 112 H 25 H 106/55 96 06/28/21 12:00 112 H 26 H 141/103 95 06/28/21 11:00 114 H 143/126 89 L 06/28/21 10:00 114 H 92/62 97 06/28/21 09:00 138 H 26 H 123/106 97 06/28/21 08:00 160 H 30 H 129/84 97 06/28/21 07:00 82 24 129/65 96 06/28/21 06:00 92 30 H 125/74 94 L 06/28/21 05:00 85 29 H 121/64 95 06/28/21 04:00 98.0 F 90 27 H 116/73 90 L 06/28/21 03:33 96 06/28/21 03:22 90 94 L 06/28/21 03:00 96 24 129/68 93 L 06/28/21 02:00 93 32 H 123/58 95 06/28/21 01:00 89 15 131/83 94 L 06/28/21 00:00 97.7 F 85 28 H 121/64 97 06/27/21 23:00 96 33 H 114/75 97 06/27/21 22:51 97.7 F 06/27/21 22:31 30 H 06/27/21 22:20 98 06/27/21 22:10 100 06/27/21 21:59 97 06/27/21 21:56 93 18 116/84 97 06/27/21 21:00 87 20 120/67 95 06/27/21 20:00 111/70 95 06/27/21 19:00 96 24 94/72 95 06/27/21 18:55 111 H 35 H 06/27/21 18:49 82/20 90 L 06/27/21 18:45 112 H 32 H 88/51 93 L 06/27/21 18:36 116 H 40 H 153/96 06/27/21 18:13 131 H 43 H 141/126 100 06/27/21 17:45 121 H 45 H 06/27/21 16:00 82 36 H 114/81 97 06/27/21 15:00 84 22 107/65 97 06/27/21 14:35 86 18 06/27/21 14:27 84 18 06/27/21 14:00 86 34 H 118/76 06/27/21 13:43 86 18 Intake and Output 06/27/21 06/28/21 06/28/21 22:59 06:59 14:59 Intake Total 130 1030 336.558 Output Total 0 300 45 Balance 130 730 291.558 Intake: IV 130 780 130 130 130 780 130 Intake, IV Titration 206.558 Amount Heparin Sod,Pork in 0.45% 206.558 NaCl 25,000 unit In 0.45 % NaCl 1 250ml.bag @ 18 UNITS/KG/HR 9.389 mls/hr IV .Q24H [facility] Rx#: [id number] Oral 250 Output: Chest Tube Drainage 0 30 0 Thora-Vent Right Mid- 0 30 0 Clavicular Chest Urine 270 45 Other: Voiding Method Indwelling Catheter Weight 52.163 kg 75.1 kg Physical Exam revealed 71-year-old female on nasal cannula, she is actually on 10 L high flow nasal cannula, in mild respiratory distress. Head: Atraumatic, normocephalic. HEENT:[Neck is supple.] [No neck masses.] [No thyromegaly.] [No JVD.] Chest: [Nourished of breath sound bilaterally, rhonchi noted at the right base, right sided chest thoravent is noted connected to Pleur-evac. No air leak is noted in the pleural VAC.] Cardiac Exam: Irregular irregular rhythm, 2/6 systolic murmur thought the precordium. No rubs, no gallops Abdomen: [Obese, Soft, nontender, no megaly, no rebound, no guarding, normal bowel sounds.] Extremities: [No clubbing, 1+ bipedal edema, no cyanosis.] Neurological Exam: [No focal neurologic deficit.] Alert and oriented 3. Psychiatric: Normal mood affect and normal mental status examination. Results - Laboratory Findings CBC and BMP: 06/28/21 07:45 06/28/21 07:45 ABG ABG pH 7.29 (7.35-7.45) L 06/27/21 18:26 ABG pCO2 47 mmHg (35-45) H 06/27/21 18:26 ABG pO2 263 mmHg (83-108) H 06/27/21 18:26 ABG O2 Saturation 99.6 % (94-97) H 06/27/21 18:26 PT/INR, D-dimer PT 10.3 sec (9.0-12.0) 06/27/21 11:19 INR 1.0 (<1.2) 06/27/21 11:19 D-Dimer 23.30 mg/L FEU (<0.60) H 06/27/21 11:19 Abnormal lab findings: Abnormal Labs 06/27/21 06/27/21 06/27/21 11:19 11:19 11:19 WBC 16.2 H Plt Count Neutrophils # (Manual) 15.70 H Lymphocytes # (Manual) 0.16 L Metamyelocytes # (Man) Myelocytes # (Manual) APTT 21.2 L D-Dimer 23.30 H ABG pH ABG pCO2 ABG pO2 ABG O2 Saturation Sodium Potassium 3.0 L Chloride Carbon Dioxide BUN 28 H Creatinine 1.14 H POC Glucose (mg/dL) Calcium Magnesium Alkaline Phosphatase 31 L Troponin I Total Protein Albumin 06/27/21 06/27/21 06/27/21 11:19 18:26 18:59 WBC Plt Count Neutrophils # (Manual) Lymphocytes # (Manual) Metamyelocytes # (Man) Myelocytes # (Manual) APTT D-Dimer ABG pH 7.29 L ABG pCO2 47 H ABG pO2 263 H ABG O2 Saturation 99.6 H Sodium Potassium Chloride Carbon Dioxide BUN Creatinine POC Glucose (mg/dL) Calcium Magnesium Alkaline Phosphatase Troponin I 0.508 H* 0.352 H* Total Protein Albumin 06/27/21 06/27/21 06/27/21 21:34 21:34 22:34 WBC Plt Count Neutrophils # (Manual) Lymphocytes # (Manual) Metamyelocytes # (Man) Myelocytes # (Manual) APTT 54.1 H D-Dimer ABG pH ABG pCO2 ABG pO2 ABG O2 Saturation Sodium Potassium Chloride Carbon Dioxide BUN Creatinine POC Glucose (mg/dL) 108 H Calcium Magnesium Alkaline Phosphatase Troponin I 0.238 H* Total Protein Albumin 06/28/21 06/28/21 06/28/21 04:02 04:02 04:02 WBC 3.3 L Plt Count 136 L Neutrophils # (Manual) Lymphocytes # (Manual) 0.36 L Metamyelocytes # (Man) 0.26 H Myelocytes # (Manual) 0.13 H APTT 56.3 H D-Dimer ABG pH ABG pCO2 ABG pO2 ABG O2 Saturation Sodium 135 L Potassium 2.8 L Chloride Carbon Dioxide 18 L BUN 26 H Creatinine POC Glucose (mg/dL) Calcium 7.4 L Magnesium Alkaline Phosphatase Troponin I Total Protein Albumin 06/28/21 06/28/21 07:45 07:45 WBC Plt Count 126 L Neutrophils # (Manual) Lymphocytes # (Manual) 0.27 L Metamyelocytes # (Man) 0.35 H Myelocytes # (Manual) 0.20 H APTT D-Dimer ABG pH ABG pCO2 ABG pO2 ABG O2 Saturation Sodium 135 L Potassium 3.0 L Chloride 109 H Carbon Dioxide 18 L BUN 24 H Creatinine POC Glucose (mg/dL) Calcium 7.1 L Magnesium 1.5 L Alkaline Phosphatase <20 L Troponin I Total Protein 4.9 L Albumin 2.5 L - Diagnostic Findings Chest x-ray: image reviewed (As noted in HPI) Assessment and Plan Assessment: Impression: Acute on chronic hypoxic respiratory failure, multifactorial. Acute pulmonary embolism without ventricular strain. Acute spontaneous right-sided pneumothorax. Acute exacerbation of COPD. Possible right lower lobe pneumonia/community-acquired pneumonia. New-onset atrial fibrillation. History of underlying coronary artery disease. History of endovascular aortic repair. Recommendation: Continue present supportive care measures. Continue to monitor in the ICU. Continue bronchodilators heparin and amiodarone as per cardiology. Patient is also on metoprolol. Continue thoravnt, and thoracic surgery to follow on the chest tube. Empiric antibiotics. Titrate oxygen accordingly. Patient is normally on home oxygen. Overall prognosis is extremely poor and guarded. We will continue to follow. Time with Patient: Greater than 30
--- NOTE | 2021-06-28 14:20 | P.GSCN ---
History of Present Illness Consult date: 06/28/21 Reason for Consult: Pneumothorax status post thoravent placement Requesting physician: Kaylin Cortes History of present illness: This is a 71-year-old female who follows on an outpatient basis with Dr. Orr for primary care and Dr. Holland for pulmonology. She has a previous medical history of severe COPD with home oxygen dependence, coronary artery disease with myocardial infarction and PCI, thoracic aortic aneurysm with endovascular repair, previous CVA with residual right-sided weakness, obstructive sleep apnea without home CPAP use, tuberculosis in 1985, obesity with sleeve gastrectomy, previous tobacco dependence, and occasional marijuana use. She presented to [facility] emergency room with complaints of cough and shortness of breath. Upon further questioning the patient and her grandson whom she lives with state that she has been having intermittent episodes of significant shortness of breath over the previous year and has been on chronic steroids. She states Dr. Holland has been trying to wean her off her steroids and every time she is off of them her shortness of breath increases again. Her most recent episode included vague right-sided chest discomfort so she presented to emergency room. CTA of the chest was completed demonstrating right-sided middle and lower lobe pulmonary embolism. She was started on IV heparin. While still in the ER she also developed a large right-sided pneumothorax which showed up on x-ray later in the evening. A thoravent was placed by the emergency room physicians with reexpansion of the right lung. She also developed A. fib with RVR which was treated with amiodarone. Lab work on admission revealed WBC 16.2, hemoglobin 14.9, 1% bands, d-dimer 23.3, potassium 3.0, BUN 28, creatinine 1.14, troponin leak with Max troponin 0.508 and trending down, BNP 688, and coronavirus PCR undetected. The patient was admitted to the intensive care unit with consultations placed to pulmonology and cardiology. For management of right-sided thoravent consultation was placed to cardiothoracic surgery. Review of Systems Review of systems was completed and was negative except as noted - Cardiovascular Reports as per HPI, Reports decreased exercise tolerance, Reports dyspnea on exertion, Reports shortness of breath - Respiratory Reports as per HPI, Reports cough, Reports dyspnea Past Medical History Past Medical History: Coronary Artery Disease (CAD), Cancer, COPD, CVA/TIA, Hyperlipidemia, Hypertension, Myocardial Infarction (MT), Sleep Apnea/CPAP/BIPAP Additional Past Medical History / Comment(s): CAD, previous history of coronary stent, thoracic aortic aneurysm with previous endovascular stent grafting, remote history of tuberculosis back in 1985, twice a with an AHI of 21, not utilizing her BiPAP, skin cancer, history of CVA with residual right-sided weakness, obesity with a previous history of sleep gastrectomy, COPD Last Myocardial Infarction Date:: 01/25/2006 History of Any Multi-Drug Resistant Organisms: None Reported Past Surgical History: Bariatric Surgery, Cholecystectomy, Heart Catheterization With Stent, Hernia Repair Additional Past Surgical History / Comment(s): Cyst removed from thyroid, HEART CATH WITH STENT X2, SURGERY FOR Thoracic Aortic Aneurysm, Ventral hernia repair with mesh July 2017. EGD, COLONOSCOPY. sleeve gastrectomy 05/19/18 (Dr. Jose Hamilton) Past Anesthesia/Blood Transfusion Reactions: Postoperative Nausea & Vomiting (PONV) Date of Last Stent Placement:: 2009 Past Psychological History: Depression Smoking Status: Former smoker Past Alcohol Use History: Occasional Past Drug Use History: Marijuana - Past Family History Father Family Medical History: COPD, Myocardial Infarction (MT) Mother Family Medical History: Hypertension Additional Family Medical History / Comment(s): Pacemaker, heart issues Sister(s) Family Medical History: Cancer Medications and Allergies Home Medications Medication Instructions Recorded Confirmed Type amLODIPine BESYLATE 10 mg PO DAILY 03/09/19 06/27/21 History Albuterol Nebulized [Ventolin 2.5 mg INHALATION RT-QID PRN 09/14/20 06/27/21 History Nebulized] Albuterol Sulfate [Proair Hfa] 2 puff INHALATION RT-QID PRN 12/04/20 06/27/21 History Fluticasone/Umeclidin/Vilanter 1 puff INHALATION RT-DAILY 06/27/21 06/27/21 History [Trelegy Ellipta 100-62.5-25] Metoprolol Tartrate [Lopressor] 25 mg PO DAILY 06/27/21 06/27/21 History Omeprazole 40 mg PO DAILY 06/27/21 06/27/21 History predniSONE 10 mg PO DAILY 06/27/21 06/27/21 History Allergies Allergy/AdvReac Type Severity Reaction Status Date / Time Penicillins Allergy Rash/Hives Verified 06/27/21 13:44 Sulfa (Sulfonamide Allergy Rash/Hives Verified 06/27/21 13:44 Antibiotics) sulfamethoxazole Allergy Rash/Hives Verified 06/27/21 13:44 [From Bactrim] trimethoprim [From Bactrim] Allergy Rash/Hives Verified 06/27/21 13:44 levofloxacin [From Levaquin] AdvReac Nausea & Verified 06/27/21 13:44 Vomiting Surgical - Exam Vital Signs Temp Pulse Resp BP Pulse Ox 97.3 F L 72 20 123/73 94 L 06/27/21 10:53 06/27/21 10:53 06/27/21 10:53 06/27/21 10:53 06/27/21 10:53 CONSTITUTIONAL: Awake and alert, appears comfortable, cooperative, well-developed, well-nourished, no pain, no acute distress EYES: Pupils equal, round, reactive to light, normal ocular movement ENT: Moist mucous membranes without oral lesions present NECK: No masses, no bruits, trachea midline RESPIRATORY: Lungs sounds diminished bilaterally, right greater than left, faint expiratory wheezes present. Respirations even, nonlabored. Currently on 10 L high flow nasal cannula with oxygen saturation 96%. Weak cough. Right- sided thoravent present and connected to continuous wall suction without air leak present CARDIOVASCULAR: S1, S2 present. Tachycardic, irregular rate and rhythm, uncontrolled atrial fibrillation on telemetry. Palpable peripheral pulses bilaterally. Trace lower extremity edema present. No calf pain or tenderness noted. GASTROINTESTINAL: Abdomen soft, nontender, nondistended without masses or organomegaly noted. There is no rebound or guarding present. Active bowel sounds present 4 quadrants. GENITOURINARY: Deferred INTEGUMENTARY: Skin is warm and dry NEUROLOGIC: Cranial nerves II through XII intact, normal coordination, no obv ious motor or sensory deficits, speech is normal MUSKULOSKELETAL: Able to move all extremities, strength equal bilaterally, normal posture PSYCHIATRIC: Alert and oriented to person place and time, appropriate affect, intact judgment and insight Results - Labs 06/28/21 07:45 06/28/21 07:45 Abnormal Lab Results - Last 24 Hours (Table) 06/27/21 06/27/21 06/27/21 Range/Units 18:26 18:59 21:34 WBC (3.8-10.6) k/uL Plt Count (150-450) k/uL Lymphocytes # (Manual) (1.0-4.8) k/uL Metamyelocytes # (Man) (0) k/uL Myelocytes # (Manual) (0) k/uL APTT 54.1 H (22.0-30.0) sec ABG pH 7.29 L (7.35-7.45) ABG pCO2 47 H (35-45) mmHg ABG pO2 263 H (83-108) mmHg ABG O2 Saturation 99.6 H (94-97) % Sodium (137-145) mmol/L Potassium (3.5-5.1) mmol/L Chloride (98-107) mmol/L Carbon Dioxide (22-30) mmol/L BUN (7-17) mg/dL POC Glucose (mg/dL) (75-99) mg/dL Calcium (8.4-10.2) mg/dL Magnesium (1.6-2.3) mg/dL Alkaline Phosphatase (38-126) U/L Troponin I 0.352 H* (0.000-0.034) ng/mL Total Protein (6.3-8.2) g/dL Albumin (3.5-5.0) g/dL 06/27/21 06/27/21 06/28/21 Range/Units 21:34 22:34 04:02 WBC 3.3 L (3.8-10.6) k/uL Plt Count 136 L (150-450) k/uL Lymphocytes # (Manual) 0.36 L (1.0-4.8) k/uL Metamyelocytes # (Man) 0.26 H (0) k/uL Myelocytes # (Manual) 0.13 H (0) k/uL APTT (22.0-30.0) sec ABG pH (7.35-7.45) ABG pCO2 (35-45) mmHg ABG pO2 (83-108) mmHg ABG O2 Saturation (94-97) % Sodium (137-145) mmol/L Potassium (3.5-5.1) mmol/L Chloride (98-107) mmol/L Carbon Dioxide (22-30) mmol/L BUN (7-17) mg/dL POC Glucose (mg/dL) 108 H (75-99) mg/dL Calcium (8.4-10.2) mg/dL Magnesium (1.6-2.3) mg/dL Alkaline Phosphatase (38-126) U/L Troponin I 0.238 H* (0.000-0.034) ng/mL Total Protein (6.3-8.2) g/dL Albumin (3.5-5.0) g/dL 06/28/21 06/28/21 06/28/21 Range/Units 04:02 04:02 07:45 WBC (3.8-10.6) k/uL Plt Count 126 L (150-450) k/uL Lymphocytes # (Manual) 0.27 L (1.0-4.8) k/uL Metamyelocytes # (Man) 0.35 H (0) k/uL Myelocytes # (Manual) 0.20 H (0) k/uL APTT 56.3 H (22.0-30.0) sec ABG pH (7.35-7.45) ABG pCO2 (35-45) mmHg ABG pO2 (83-108) mmHg ABG O2 Saturation (94-97) % Sodium 135 L (137-145) mmol/L Potassium 2.8 L (3.5-5.1) mmol/L Chloride (98-107) mmol/L Carbon Dioxide 18 L (22-30) mmol/L BUN 26 H (7-17) mg/dL POC Glucose (mg/dL) (75-99) mg/dL Calcium 7.4 L (8.4-10.2) mg/dL Magnesium (1.6-2.3) mg/dL Alkaline Phosphatase (38-126) U/L Troponin I (0.000-0.034) ng/mL Total Protein (6.3-8.2) g/dL Albumin (3.5-5.0) g/dL 06/28/21 Range/Units 07:45 WBC (3.8-10.6) k/uL Plt Count (150-450) k/uL Lymphocytes # (Manual) (1.0-4.8) k/uL Metamyelocytes # (Man) (0) k/uL Myelocytes # (Manual) (0) k/uL APTT (22.0-30.0) sec ABG pH (7.35-7.45) ABG pCO2 (35-45) mmHg ABG pO2 (83-108) mmHg ABG O2 Saturation (94-97) % Sodium 135 L (137-145) mmol/L Potassium 3.0 L (3.5-5.1) mmol/L Chloride 109 H (98-107) mmol/L Carbon Dioxide 18 L (22-30) mmol/L BUN 24 H (7-17) mg/dL POC Glucose (mg/dL) (75-99) mg/dL Calcium 7.1 L (8.4-10.2) mg/dL Magnesium 1.5 L (1.6-2.3) mg/dL Alkaline Phosphatase <20 L (38-126) U/L Troponin I (0.000-0.034) ng/mL Total Protein 4.9 L (6.3-8.2) g/dL Albumin 2.5 L (3.5-5.0) g/dL Microbiology - Last 24 Hours (Table) 06/27/21 19:00 Blood Culture Gram Stain - Preliminary Blood 06/27/21 18:45 Blood Culture Gram Stain - Preliminary Blood 06/27/21 19:00 Blood Culture - Final Blood 06/27/21 18:45 Blood Culture - Final Blood Diabetes panel 06/28/21 06/28/21 Range/Units 04:02 07:45 Sodium 135 L 135 L (137-145) mmol/L Potassium 2.8 L 3.0 L (3.5-5.1) mmol/L Chloride 107 109 H (98-107) mmol/L Carbon Dioxide 18 L 18 L (22-30) mmol/L BUN 26 H 24 H (7-17) mg/dL Creatinine 0.73 0.72 (0.52-1.04) mg/dL Glucose 89 85 (74-99) mg/dL Calcium 7.4 L 7.1 L (8.4-10.2) mg/dL AST 31 (14-36) U/L ALT 12 (4-34) U/L Alkaline Phosphatase <20 L (38-126) U/L Total Protein 4.9 L (6.3-8.2) g/dL Albumin 2.5 L (3.5-5.0) g/dL Calcium panel 06/28/21 06/28/21 Range/Units 04:02 07:45 Calcium 7.4 L 7.1 L (8.4-10.2) mg/dL Albumin 2.5 L (3.5-5.0) g/dL Pituitary panel 06/28/21 06/28/21 Range/Units 04:02 07:45 Sodium 135 L 135 L (137-145) mmol/L Potassium 2.8 L 3.0 L (3.5-5.1) mmol/L Chloride 107 109 H (98-107) mmol/L Carbon Dioxide 18 L 18 L (22-30) mmol/L BUN 26 H 24 H (7-17) mg/dL Creatinine 0.73 0.72 (0.52-1.04) mg/dL Glucose 89 85 (74-99) mg/dL Calcium 7.4 L 7.1 L (8.4-10.2) mg/dL Adrenal panel 06/28/21 06/28/21 Range/Units 04:02 07:45 Sodium 135 L 135 L (137-145) mmol/L Potassium 2.8 L 3.0 L (3.5-5.1) mmol/L Chloride 107 109 H (98-107) mmol/L Carbon Dioxide 18 L 18 L (22-30) mmol/L BUN 26 H 24 H (7-17) mg/dL Creatinine 0.73 0.72 (0.52-1.04) mg/dL Glucose 89 85 (74-99) mg/dL Calcium 7.4 L 7.1 L (8.4-10.2) mg/dL Total Bilirubin 0.7 (0.2-1.3) mg/dL AST 31 (14-36) U/L ALT 12 (4-34) U/L Alkaline Phosphatase <20 L (38-126) U/L Total Protein 4.9 L (6.3-8.2) g/dL Albumin 2.5 L (3.5-5.0) g/dL - Imaging Chest x-ray: report reviewed, image reviewed CT scan - chest: report reviewed, image reviewed EKG: image reviewed Assessment and Plan Assessment: 1. Right-sided pneumothorax, status post thoravent placement by the emergency room physicians with reexpansion of the right long 2. Acute pulmonary embolism in the right middle and lower pulmonary arteries 3. Acute on chronic hypoxemic respiratory failure 4. New-onset rapid atrial fibrillation 5. Leukocytosis present on admission, possible right lower lobe pneumonia 6. History of severe COPD with home oxygen dependence 7. History of coronary artery disease with myocardial infarction and PCI 8. History of thoracic aortic aneurysm with endovascular repair 9. Previous CVA with residual right-sided weakness 10. Obstructive sleep apnea without home CPAP use 11. Tuberculosis in 1985 12. Obesity with previous sleeve gastrectomy 13. Previous tobacco dependence 14. Occasional marijuana use Plan: The patient was seen and examined at the bedside with Dr. Briseno in the presence of her grandson. Chart/diagnostics were reviewed. At this time we removed suction from thoravent. We will continue to monitor for any signs of air leak or recurrence of pneumothorax. Will continue to monitor daily x-rays. Wean O2 as tolerated. Bronchodilators per pulmonology. Atrial fibrillation management per cardiology. Antibiotics per pulmonology. Medical management of other comorbidities per primary care service. More recommendations to follow Thank you Dr. Cortes for this consult. We look forward to working with you in the care of your patient Time with Patient: Greater than 30
--- NOTE | 2021-06-28 15:17 | XR ---
EXAMINATION TYPE: XR chest 1V portable DATE OF EXAM: 06/28/2021 COMPARISON: 06/28/2021 INDICATION: Pneumothorax TECHNIQUE: Single frontal view of the chest is obtained. FINDINGS: The heart size is normal. The pulmonary vasculature is normal. Small right pleural fluid may be present. There is patchy infiltrate within the right mid and lower l tong field. Catheter is present on the right, no pneumothorax is evident. Stent is within the aorta. IMPRESSION: 1. Right-sided catheter, no pneumothorax is evident. 2. Right mid and lower lung field infiltrate. Small right pleural effusion may be present
[2021-06-28] MEDS: predniSONE 10 MG TAB PO SCH (17:30)
[2021-06-28] MEDS: AMIODARONE 450 MG in DEXTROSE 5% IN WATER 250 ML IV SCH ×2 (17:31)
[2021-06-28] MEDS: CEFEPIME 2 GM in SODIUM CHLORIDE 0.9% 100 ML IVPB SCH (20:15)
--- NOTE | 2021-06-28 20:16 | P.PN ---
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 Chronic stable medical conditions include coronary artery disease with stent, some mild right-sided weakness from prior stroke, hypertension, hyperlipidemia, obstructive sleep apnea uses CPAP machine, TB in 1985, hiatal hernia, surgery for thoracic aortic aneurysm, sleeve gastrectomy [place] [address] Hamilton. Home oxygen 4 L Patient presented to the ER with some right-sided and right posterior pain. Worse with deep breathing. No trauma. More short of breath than baseline. No fever and chills. Some baseline cough. Appetite is fair.. Patient found to be in the ER started on IV heparin. Pulmonary was consulted. Patient's grandson at the bedside. Patient is vaccinated for COVID 19. July 08: ICU: Last night patient developed right-sided pneumothorax in the ER. Thora-vent was placed. Followed by chest tube. Patient moved to the ICU. Went to A. fib with rapid ventricular rate. Today started IV amiodarone. Remains on IV heparin. Patient's grandson and his mother at the bedside. Short of breath. Tired. Review of systems: Was done for constitutional, cardiovascular, GI, pulmonary. relevant finding as above Active Medications Acetaminophen (Acetaminophen Tab 325 Mg Tab) 650 mg PO Q6HR PRN PRN Reason: Mild Pain or Fever > 100.5 Last Admin: 06/28/21 17:30 Dose: 650 mg Documented by: Al Hydroxide/Mg Hydroxide (Mag Hydrox/Al Hydrox/Simeth 30 Ml Cup) 15 ml PO Q6HR PRN PRN Reason: Indigestion Albuterol Sulfate (Albuterol Nebulized 2.5 Mg/3 Ml) 2.5 mg INHALATION RT-QID PRN PRN Reason: Shortness Of Breath Amlodipine Besylate (Amlodipine 10 Mg Tab) 10 mg PO DAILY [facility] Last Admin: 06/28/21 10:24 Dose: Not Given Documented by: Budesonide (Budesonide 1 Mg/2 Ml Nebu) 1 mg INHALATION RT-BID [facility] Last Admin: 06/28/21 08:09 Dose: Not Given Documented by: Calcium Carbonate/Glycine (Calcium Carbonate 500 Mg Chewable) 1,000 mg PO Q4HR PRN PRN Reason: Dyspepsia Formoterol Fumarate (Formoterol Fumarate 20 Mcg/2 Ml Nebu) 20 mcg INHALATION RT-BID [facility] Last Admin: 06/28/21 08:09 Dose: Not Given Documented by: Heparin Sodium (Porcine) (Heparin Sodium 1,000 Un/Ml (10ml Vl)) 0 unit IV PER PROTOCOL PRN; Protocol PRN Reason: Low PTT Hydromorphone HCl (Hydromorphone 1 Mg/Ml 1 Ml Syringe) 1 mg IVP Q3HR PRN PRN Reason: Pain Last Admin: 06/28/21 15:10 Dose: 1 mg Documented by: Heparin Sodium/Sodium Chloride (25,000 unit/ Sodium Chloride) 250 mls @ 9.389 mls/hr IV .Q24H [facility]; Protocol Last Admin: 06/28/21 13:01 Dose: 18 units/kg/hr, 9.389 mls/hr Documented by: Sodium Chloride (Saline 0.9%) 1,000 mls @ 130 mls/hr IV .Q7H42M [facility] Last Admin: 06/28/21 17:54 Dose: 130 mls/hr Documented by: Amiodarone HCl 450 mg/ (Dextrose/Water) 250 mls @ 16.667 mls/hr IV .Q15H [facility]; Protocol Stop: 06/29/21 10:59 Last Admin: 06/28/21 17:31 Dose: 0.5 mg/min, 16.667 mls/hr Documented by: Ceftriaxone Sodium 1 gm/ (Sodium Chloride) 50 mls @ 100 mls/hr IVPB Q24HR [facility] Last Admin: 06/28/21 12:55 Dose: 100 mls/hr Documented by: Ipratropium [place] (Ipratropium 0.5 Mg/2.5 Ml Nebu) 0.5 mg INHALATION Q4H [facility] Last Admin: 06/28/21 15:51 Dose: 0.5 mg Documented by: Lactulose (Lactulose 20 Gm/30 Ml Cup) 20 gm PO DAILY PRN PRN Reason: Constipation Lorazepam (Lorazepam 0.5 Mg Tab) 0.5 mg PO Q6HR PRN PRN Reason: Anxiety Last Admin: 06/28/21 17:54 Dose: 0.5 mg Documented by: Melatonin (Melatonin 3 Mg Tablet) 3 mg PO HS PRN PRN Reason: Insomnia Metoprolol Tartrate (Metoprolol Tartrate 25 Mg Tab) 25 mg PO DAILY [facility] Last Admin: 06/28/21 08:34 Dose: 25 mg Documented by: Miscellaneous Information (Potassium Replacement Protocol 1 Each Misc) 1 each MISCELLANE DAILY PRN; Protocol PRN Reason: Per Protocol Miscellaneous Information (Magnesium Replacement Protocol 1 Each Misc) 1 each MISCELLANE DAILY PRN; Protocol PRN Reason: Per Protocol Multi-Ingred Cream/Lotion/Oil/Oint (Hydrophilic Cream 180 Gm Tube) 1 applic TOPICAL DAILY [facility]; Protocol Last Admin: 06/28/21 12:55 Dose: 1 applic Documented by: Naloxone HCl (Naloxone 0.4 Mg/Ml 1 Ml Vial) 0.2 mg IV Q2M PRN PRN Reason: Opioid Reversal Ondansetron HCl (Ondansetron 4 Mg/2 Ml Vial) 4 mg IVP Q8HR PRN PRN Reason: Nausea And Vomiting Last Admin: 06/28/21 10:31 Dose: 4 mg Documented by: Pantoprazole Sodium (Pantoprazole 40 Mg Tablet) 40 mg PO DAILY [facility] Last Admin: 06/28/21 08:37 Dose: 40 mg Documented by: Prednisone (Prednisone 10 Mg Tab) 10 mg PO DAILY [facility] Last Admin: 06/28/21 17:30 Dose: 10 mg Documented by: Past medical history to include: Coronary artery disease with stent, COPD, stroke with some mild right-sided weakness, hyperlipidemia, hypertension, obstructive sleep apnea uses CPAP, TB 1985, hiatal hernia, sleeve gastrectomy in 2018, surgery for thoracic aortic aneurysm, 4 L of oxygen at home Social history: Started smoking age of 15 stopped in 2011. One pack a day. Alcohol occasionally. Lives with her grandson. Occasionally uses a cane or a walker. Family history: HI, pacemaker, COPD Physical examination: VITAL SIGNS: Afebrile, 120, 26, 123/06, 97% on 10 L nasal cannula GENERAL: Propped up in bed very short of breath, Thora-vent EYES: Pupils equal. Conjunctiva normal. HEENT: External appearance of nose and ears normal, oral cavity grossly normal. NECK: JVD not raised; masses not palpable. HEART: First and second heart sounds are normal; mild edema in the left lower extremity LUNGS: Respiratory rate increased, decreased breath sounds. Prolonged expiration. Right-sided chest tube ABDOMEN: Soft, nontender, liver spleen not palpable, no masses palpable. PSYCH: Alert and oriented x3; mood and affect anxious NEUROLOGICAL: Cranial nerves grossly intact; no facial asymmetry, mild right hemiparesis INVESTIGATIONS, reviewed in the clinical context: 2-D echocardiogram: EF 50-55% June 28: White count 3.9 hemoglobin 13.1 platelets 126 sodium 135 potassium 3 when necessary 24 crit and 0.7 to White count 16.2 hemoglobin 14.9 platelets 212 d-dimer 23.3 sodium 137 potassium 3 BUN 28 creatinine 1.14 Troponin I 0.508 proBNP 688 Coronavirus [PCR] not detected EKG tracing personally reviewed by me-normal sinus rhythm. Flipped T waves. The anterolateral leads. PVC. Computed tomography scan of the chest: Aortic stent. Large pneumatocele is in the posterior right lung. Acute PE in the right middle and lower lobe arteries secondary intensity branches. Right lower lobe consolidation and/or mass. Chest x-ray film personally reviewed by me-right basilar infiltrate, aortic graft Assessment and plan: -Acute PE in the right middle and lower lobe arteries and secondary branches, IV heparin. -Probable right basilar pneumonia suspected gram-negative organism IV cefepime -New onset atrial fibrillation with a rapid ventricular rate IV amiodarone -IV heparin monitoring Follow PTT -Spontaneous pneumothorax: New Patient had a Thora-vent placed and a right-sided chest tube. -Chronic hypoxic respiratory failure from COPD On home oxygen 4 -Acute hypoxic respiratory failure from PE: Slow to respond Oxygen supplementation. FiO2 10 liters -Acute severe COPD exacerbation in an ex-smoker-: Slow to respond on bronchodilators, inhaled steroids. Long-acting beta agonist. -Coronary artery disease with stent Lopressor, -Mild right hemiparesis from prior stroke -Hyperlipidemia, -Hypokalemia Replacement potassium -Essential hypertension, amlodipine 10 mg daily, Lopressor 25 mg a day -Obstructive sleep apnea uses CPAP , continue the same -Hiatal hernia -History of sleeve gastrectomy -DO NOT RESUSCITATE IV heparin. IV cefepime. IV amiodarone. Right-sided chest tube. Bronchodilators. Prognosis guarded. Follow-up with multiple consultants. Advanced care planning Patient's overall initially was discussed. She understands that she has advanced COPD. She'll multiple acute issues. CODE STATUS was discussed. Patient does not want to be intubated or have any heroic measures other than current treatment plan. No CPR. CODE STATUS being changed over to DO NOT RESUSCITATE. About 15 minutes was spent for this
[2021-06-28] MEDS: SODIUM BICARBONATE TAB 650 MG TAB PO SCH (22:40)
[2021-06-29] MEDS: IPRATROPIUM 0.5 MG/2.5 ML NEBU INHALATION SCH ×6 (00:24→20:33)
[2021-06-29] MEDS: HYDROmorphone 1 MG/ML 1 ML SYRINGE IVP PRN ×5 (01:07→19:45)
[2021-06-29] MEDS: SODIUM CHLORIDE 0.9% 1,000 ML IV SCH ×3 (06:24→21:33)
[2021-06-29 06:46] LABS: Albumin 2.4 g/dL (3.5-5.0); Calcium 7.4 mg/dL (8.4-10.2); Magnesium 2.2 mg/dL (1.6-2.3); Potassium 3.5 mmol/L (3.5-5.1); Total Bilirubin 0.4 mg/dL (0.2-1.3); Total Protein 4.8 g/dL (6.3-8.2)
[2021-06-29 06:49] LABS: HGB 13.1 gm/dL (11.4-16.0); MCH 30.7 pg (25.0-35.0); MCV 98.8 fL (80.0-100.0); Mean Platelet Volume 8.2; Platelet Count 145 k/uL (150-450); RBC 4.26 m/uL (3.80-5.40); RDW 13.5 % (11.5-15.5); WBC 8.5 k/uL (3.8-10.6)
--- NOTE | 2021-06-29 06:53 | XR ---
EXAMINATION TYPE: XR chest 1V portable DATE OF EXAM: 06/29/2021 HISTORY: Shortness of breath. COMPARISON: 06/28/2021 TECHNIQUE: Single view of the chest is submitted. FINDINGS: Demonstrated are scattered senescent parenchymal change. Right-sided pleural catheter is in place. There is a tiny right apical pneumothorax is identified. Pe rsistent right perihilar and right basilar density and pleural effusion. Left lung is clear. Aortic s tent. Hilar and mediastinal structures are within normal limits. Degenerative changes are seen of the dorsal spine. IMPRESSION: 1. Right-sided pleural catheter is in place. There is a tiny right apical pneumothorax identified. Persistent right perihilar and right basilar density and pleural effusion.
--- NOTE | 2021-06-29 07:24 | P.PN ---
Subjective Progress Note Date: 06/29/21 Principal diagnosis: Pulmonary embolism/paroxysmal atrial fibrillation The patient is a pleasant 71-year-old female patient was admitted to the hospital with acute on chronic hypoxemic respiratory failure. That was multi- factorial and related to pneumothorax as well as pulmonary embolism complicated by atrial fibrillation with RVR which seems to be new diagnosis of the patient. Patient was seen this morning beach she continues to be hypoxic requiring liters of oxygen. Hemodynamically she seems to be stable and not requiring any vasopressors. She has been maintaining normal sinus mechanism. I'm going to DC MU IV and start the patient on amnio by mouth. She is currently on heparin IV. Once we know that she does not need any further procedure she might benefit from oral anticoagulation with a pulmonary embolism dose. The echo did not show any evidence of RV strain. Objective - Vital Signs Vital signs: Vital Signs Temp 97.8 F 06/29/21 00:00 Pulse 96 06/29/21 07:00 Resp 22 06/29/21 07:00 BP 113/86 06/29/21 07:00 Pulse Ox 94 L 06/29/21 07:00 Intake & Output 06/28/21 06/29/21 06/29/21 18:59 06:59 18:59 Intake Total 1637.558 460 190.097 Output Total 420 345 30 Balance 1217.558 115 160.097 Weight 75.2 kg Intake: IV 1431 460 20 130 1431 460 20 Intake, IV Titration 206.558 170.097 Amount Heparin Sod,Pork in 0.45% 206.558 170.097 NaCl 25,000 unit In 0.45 % NaCl 1 250ml.bag @ 18 UNITS/KG/HR 9.389 mls/hr IV .Q24H [facility] Rx#: [id number] Output: Chest Tube Drainage 0 Thora-Vent Right Mid- 0 Clavicular Chest Urine 420 345 30 Other: Voiding Method Indwelling Catheter Indwelling Catheter - Constitutional General appearance: Present: no acute distress - Respiratory Respiratory: bilateral: diminished - Cardiovascular Rhythm: regular Heart sounds: normal: S1, S2 - Labs CBC & Chem 7: 06/29/21 05:57 06/29/21 05:57 Labs: Abnormal Lab Results - Last 24 Hours (Table) 06/28/21 06/28/21 06/28/21 Range/Units 04:02 07:45 07:45 Plt Count 126 L (150-450) k/uL Lymphocytes # (Manual) 0.36 L 0.27 L (1.0-4.8) k/uL Metamyelocytes # (Man) 0.26 H 0.35 H (0) k/uL Myelocytes # (Manual) 0.13 H 0.20 H (0) k/uL APTT (22.0-30.0) sec Sodium 135 L (137-145) mmol/L Potassium 3.0 L (3.5-5.1) mmol/L Chloride 109 H (98-107) mmol/L Carbon Dioxide 18 L (22-30) mmol/L BUN 24 H (7-17) mg/dL Glucose (74-99) mg/dL Calcium 7.1 L (8.4-10.2) mg/dL Magnesium 1.5 L (1.6-2.3) mg/dL Alkaline Phosphatase <20 L (38-126) U/L Total Protein 4.9 L (6.3-8.2) g/dL Albumin 2.5 L (3.5-5.0) g/dL 06/29/21 06/29/21 06/29/21 Range/Units 05:57 05:57 05:57 Plt Count 145 L (150-450) k/uL Lymphocytes # (Manual) (1.0-4.8) k/uL Metamyelocytes # (Man) (0) k/uL Myelocytes # (Manual) (0) k/uL APTT 35.5 H (22.0-30.0) sec Sodium 131 L (137-145) mmol/L Potassium (3.5-5.1) mmol/L Chloride (98-107) mmol/L Carbon Dioxide 17 L (22-30) mmol/L BUN 30 H (7-17) mg/dL Glucose 142 H (74-99) mg/dL Calcium 7.4 L (8.4-10.2) mg/dL Magnesium (1.6-2.3) mg/dL Alkaline Phosphatase 27 L (38-126) U/L Total Protein 4.8 L (6.3-8.2) g/dL Albumin 2.4 L (3.5-5.0) g/dL Microbiology - Last 24 Hours (Table) 06/27/21 18:45 Blood Culture Gram Stain - Preliminary Blood Blood Culture - Preliminary Pseudomonas aeruginosa 06/27/21 19:00 Blood Culture Gram Stain - Preliminary Blood 06/27/21 19:00 Blood Culture - Final Blood 06/27/21 18:45 Blood Culture - Final Blood Assessment and Plan Assessment: Assessment #1 acute hypoxic respiratory failure likely to be multi-factorial #2 pulmonary embolism seems to be non-massive #3 paroxysmal atrial fibrillation likely to be triggered by the pulmonary embolism #4 multiple comorbid conditions Plan #1 DC MU IV and start the patient on the medial by mouth #2 consider oral anticoagulation with a pulmonary embolism dose once the patient doesn't need any further procedure #3 continue the rest of the current medical regimen #4 follow-up with the patient
[2021-06-29] MEDS: BUDESONIDE 1 MG/2 ML NEBU INHALATION SCH ×2 (07:27→20:33)
[2021-06-29] MEDS: FORMOTEROL FUMARATE 20 MCG/2 ML NEBU INHALATION SCH ×2 (07:27→20:33)
--- NOTE | 2021-06-29 08:13 | P.PN ---
Subjective Progress Note Date: 06/29/21 Principal diagnosis: Right-sided pneumothorax, acute pulmonary embolism in the right middle and lower pulmonary arteries, acute on chronic hypoxemic respiratory failure, new-onset rapid atrial fibrillation, leukocytosis present on admission, possible right lower lobe pneumonia. Previous medical history of severe COPD with home oxygen dependence, coronary artery disease with myocardial infarction and PCI, thoracic aortic aneurysm with endovascular repair, previous CVA with residual right-sided weakness, obstructive sleep apnea without home CPAP use, tuberculosis in 1985, obesity with previous sleeve gastrectomy, previous tobacco dependence, occasional marijuana use The patient was seen this morning in the intensive care unit in no acute distress. States she feels about the same. Denies pain, does continue to complain of some shortness of breath which has remained unchanged. Remains on 10 L high flow nasal cannula with oxygen saturation in the high 80s to low 90s. Right-sided thoravent remains in place, placed to waterseal yesterday, patient does have air leak with coughing as noted by fluctuation of the red diaphragm. Chest x-ray reviewed. Objective - Vital Signs Vital signs: Vital Signs Temp 97.8 F 06/29/21 00:00 Pulse 96 06/29/21 07:54 Resp 22 06/29/21 07:00 BP 113/86 06/29/21 07:00 Pulse Ox 90 L 06/29/21 07:27 Intake & Output 06/28/21 06/29/21 06/29/21 18:59 06:59 18:59 Intake Total 1637.558 460 190.097 Output Total 420 345 30 Balance 1217.558 115 160.097 Weight 75.2 kg Intake: IV 1431 460 20 130 1431 460 20 Intake, IV Titration 206.558 170.097 Amount Heparin Sod,Pork in 0.45% 206.558 170.097 NaCl 25,000 unit In 0.45 % NaCl 1 250ml.bag @ 18 UNITS/KG/HR 9.389 mls/hr IV .Q24H [facility] Rx#: [id number] Output: Chest Tube Drainage 0 Thora-Vent Right Mid- 0 Clavicular Chest Urine 420 345 30 Other: Voiding Method Indwelling Catheter Indwelling Catheter - Exam CONSTITUTIONAL: Appears comfortable, cooperative, no acute distress RESPIRATORY: Lungs sounds very diminished bilaterally with expiratory wheezes heard throughout. Respirations even, nonlabored. Currently on 10 L high flow nasal cannula with oxygen saturation high 80s to low 90s. Barely able to achieve 500 mL on incentive spirometry. Strong cough. CARDIOVASCULAR: S1, S2 present. Regular rate and rhythm, sinus rhythm on telemetry. GASTROINTESTINAL: Abdomen soft, nontender, nondistended. Active bowel sounds p resent 4 quadrants. Tolerating diet. GENITOURINARY: Bowman present draining yellow urine INTEGUMENTARY: Skin is warm and dry NEUROLOGIC: Cranial nerves II through XII intact MUSKULOSKELETAL: Able to move all extremities, strength equal bilaterally, gait normal PSYCHIATRIC: Alert and oriented to person place and time, appropriate affect, intact judgment and insight INVASIVE LINES AND TUBES: Right thoravent present to waterseal, air leaks present with coughing. - Labs CBC & Chem 7: 06/29/21 05:57 06/29/21 05:57 Labs: Abnormal Lab Results - Last 24 Hours (Table) 06/28/21 06/28/21 06/28/21 Range/Units 04:02 07:45 07:45 Plt Count 126 L (150-450) k/uL Lymphocytes # (Manual) 0.36 L 0.27 L (1.0-4.8) k/uL Metamyelocytes # (Man) 0.26 H 0.35 H (0) k/uL Myelocytes # (Manual) 0.13 H 0.20 H (0) k/uL APTT (22.0-30.0) sec Sodium 135 L (137-145) mmol/L Potassium 3.0 L (3.5-5.1) mmol/L Chloride 109 H (98-107) mmol/L Carbon Dioxide 18 L (22-30) mmol/L BUN 24 H (7-17) mg/dL Glucose (74-99) mg/dL Calcium 7.1 L (8.4-10.2) mg/dL Magnesium 1.5 L (1.6-2.3) mg/dL Alkaline Phosphatase <20 L (38-126) U/L Total Protein 4.9 L (6.3-8.2) g/dL Albumin 2.5 L (3.5-5.0) g/dL 06/29/21 06/29/21 06/29/21 Range/Units 05:57 05:57 05:57 Plt Count 145 L (150-450) k/uL Lymphocytes # (Manual) (1.0-4.8) k/uL Metamyelocytes # (Man) (0) k/uL Myelocytes # (Manual) (0) k/uL APTT 35.5 H (22.0-30.0) sec Sodium 131 L (137-145) mmol/L Potassium (3.5-5.1) mmol/L Chloride (98-107) mmol/L Carbon Dioxide 17 L (22-30) mmol/L BUN 30 H (7-17) mg/dL Glucose 142 H (74-99) mg/dL Calcium 7.4 L (8.4-10.2) mg/dL Magnesium (1.6-2.3) mg/dL Alkaline Phosphatase 27 L (38-126) U/L Total Protein 4.8 L (6.3-8.2) g/dL Albumin 2.4 L (3.5-5.0) g/dL Microbiology - Last 24 Hours (Table) 06/27/21 18:45 Blood Culture Gram Stain - Preliminary Blood Blood Culture - Preliminary Pseudomonas aeruginosa 06/27/21 19:00 Blood Culture Gram Stain - Preliminary Blood 06/27/21 19:00 Blood Culture - Final Blood 06/27/21 18:45 Blood Culture - Final Blood - Imaging and Cardiology Chest x-ray: report reviewed, image reviewed Assessment and Plan Assessment: 1. Right-sided pneumothorax, status post thoravent placement by the emergency room physicians with reexpansion of the right lung 2. Acute pulmonary embolism in the right middle and lower pulmonary arteries 3. Acute on chronic hypoxemic respiratory failure 4. New-onset rapid atrial fibrillation 5. Leukocytosis present on admission, possible right lower lobe pneumonia 6. History of severe COPD with home oxygen dependence 7. History of coronary artery disease with myocardial infarction and PCI 8. History of thoracic aortic aneurysm with endovascular repair 9. Previous CVA with residual right-sided weakness 10. Obstructive sleep apnea without home CPAP use 11. Tuberculosis in 1985 12. Obesity with previous sleeve gastrectomy 13. Previous tobacco dependence 14. Occasional marijuana use Plan: 1. Continue thoravent to waterseal. Monitor for resolution of air leak 2. Will continue to monitor daily chest x-rays 3. Wean O2 as tolerated. Bronchodilators per pulmonology. Encourage incentive spirometry use 4. Increase activity as tolerated 5. Heart rhythm management per cardiology 6. Antibiotic for pulmonology 7. Medical management for the comorbidities per primary care service 8. Will continue to follow Time with Patient: Greater than 30
[2021-06-29 08:35] LABS: Band Neutrophils % 18 %; Eosinophils # (M) 0.09 k/uL (0-0.7); Lymphocytes # (M) 0.43 k/uL (1.0-4.8); Metamyelocytes # (M) 0.26 k/uL (0); Metamyelocytes % 3 %; Monocytes # (M) 0.17 k/uL (0-1.0); Myelocytes # (M) 0.09 k/uL (0); Myelocytes % 1 %; Neutrophils % (M) 73 %; Nucleated Red Blood Cells 0 /100 WBC (0-0); Total Cells Counted 200
[2021-06-29 08:42] LABS: Dohle Bodies Present; Toxic Vacuolation Present
[2021-06-29] MEDS ORDERED: AMIODARONE 200 MG TAB PO SCH (09:00)
[2021-06-29] MEDS: HYDROPHILIC CREAM 180 GM TUBE TOPICAL SCH (09:30)
[2021-06-29] MEDS: POTASSIUM CHLORIDE ER 20 MEQ TAB.ER PO SCH ×2 (09:30→17:48)
[2021-06-29] MEDS: amLODIPine 10 MG TAB PO SCH (09:30)
[2021-06-29] MEDS: predniSONE 10 MG TAB PO SCH (09:30)
[2021-06-29] MEDS: CEFEPIME 2 GM in SODIUM CHLORIDE 0.9% 100 ML IVPB SCH ×2 (09:30→21:33)
[2021-06-29] MEDS: SODIUM BICARBONATE TAB 650 MG TAB PO SCH ×3 (09:30→21:32)
[2021-06-29] MEDS: METOPROLOL TARTRATE 25 MG TAB PO SCH (09:30)
[2021-06-29] MEDS: PANTOPRAZOLE 40 MG TABLET PO SCH (09:30)
--- NOTE | 2021-06-29 13:21 | CDI ---
Documentation Clarification Form Date: 06/29/2021 01:06:35 PM From: Mirta KaufmanJANELL, CCDS Admit Date: 06/27/2021 02:47:00 PM Patient Name: Mirta Jauregui Visit Number: [id number] Discharge Date: ATTENTION: The Clinical Documentation Specialists (CDI) and [facility] Coding Staff appreciate your assistance in clarifying documentation. Please respond to the clarification below the line at the bottom and electronically sign. The CDI & [facility] Coding staff will review the response and follow-up if needed. Please note: Queries are made part of the Legal Health Record. If you have any questions, please contact the author of this message via ITS. Dr. Murali Masters: The patient is admitted with Acute Pulmonary Embolisms in the Right Middle and Lower Lobe Arteries and Secondary Branches, Acute on Chronic Hypoxic Respiratory Failure, Home O2 Dependent; Acute Severe COPD Exacerbation and New Onset Paroxysmal Atrial Fibrillation. Additional clarification regarding the etiology/cause of the clinical indicators is requested. History/Risk Factors per the 06/27 H/P: CAD w/stent, CVA with Mild right hemiparesis, Hyperlipidemia, Chronic hypoxic Respiratory Failure, COPD on Home O2, Hypertension, JOSE EDUARDO, Bariatric Surgery, Obesity, Former Smoker. Clinical Indicators: Presented to the ED on 06/27 with Chest Pain radiating to the back and shoulder blades, SOB. Admit with Right PE, Elevated Troponins, Hypokalemia, MARINO, COPD and Pneumothorax. 06/27 VS: T 97.3, P 72, R 20 - 44 (sob, pursed lips), BP 123/73, PO 94 RA, BMI: 30.3 06/27 LAB: WBC 16.2, Neutrophils 15.70, Lymphocytes 0.16, No Lactic Acid done, COVID negative. 06/27 Blood Cultures: 2 Final (Negative); 1 Gram Stain: Pseudomonas aeruginosa (Preliminary); 1 Gram Stain: (Preliminary) 06/27 CXR: New right greater than left basilar reticulonodular opacities are concerning for Covid-19 infection in current environment, correlate clinically. 06/27 CT Chest: Acute pulmonary embolism right middle and lower lobe arteries and secondary and tertiary branches. Right lower lobe consolidation and/or mass. A large pneumatocele or cavitation is adjacent. Follow-up is recommended *Addendum: There is aneurysm of the descending thoracic aorta with blood clot. There is calcium deposits as well within the aneurysm on the right lateral wall and appears not changed compared to old exam. There is no evidence of endovascular leak. The right lower lobe pulmonary infiltrate and right lower lobe emboli are new compared to old exam. Treatment: Right side Chest Tube placed by the ED Physician, Telemetry, Heparin Drip, Urinary Straight Cath, O2 3Lnc, IV Morphine 2 mg x1, IV fl 999 mls/hr q1H x2, INH Duoneb x1, INH Ventolin QID prn, INH Duoneb x1, INH Atrovent q4H, IV Solumedrol q*H, IV Cefepime 200 mls/hr x1. In your professional opinion, please clarify if these findings signify one of the following conditions: [ ] Sepsis POA [ ] Sepsis, Not POA [ ] Sepsis ruled out [ ] Severe Sepsis with organ failure [ ] Other, please specify [ ] Unable to determine Sepsis, POA (Template Last Reviewed: August 2020) MTDD
--- NOTE | 2021-06-29 13:36 | P.PN ---
Subjective Progress Note Date: 06/29/21 Principal diagnosis: Acute hypoxic rest for failure, multifactorial. This is a 71-year-old female with history of severe COPD, O2 dependent, normally sees Dr. Holland on outpatient basis. Patient is also known to have history of underlying coronary artery disease, previous PCI back in 2016. History of endovascular aortic aneurysm repair, patient has chronic hypoxic referral failure maintained on oxygen at home. She presented to the ER yesterday with one month history of cough and shortness of breath. And her symptoms have become significantly worse. Patient was also developing some right vague chest discomfort. Seen in the ER, and CT angiogram of the chest showed evidence of right sided pulmonary embolism. Patient was started on heparin, and later on a follow-up chest x-ray showed evidence of large right-sided pneumothorax. Patient had a chest tube placed by the ER physician/jaylen about with complete reexpansion of the right lung, however continued to have some questionable inflammatory changes in the right lower lobe or atelectatic changes in the right lower lobe. Patient was seen by many consultants because she developed atrial fibrillation with RVR, cardiology saw the patient and recommended treatment with amiodarone. Patient was also seen by thoracic surgery for a right-sided pneumothorax. And presently the chest tube seems to be in the proper position, and the lung seems to be fully expanded. Patient is also on heparin for her atrial fibrillation is also for her acute pulmonary embolism. Labs today showed W Zbigniew of 3.9 hemoglobin 13.1 and platelets are 1 26,000 electrolytes showed low potassium of 3.0 and that being addressed ac cordingly. Troponin is 0.238 Reevaluated today on 05/30/2021, patient remains in the ICU, remains on heparin she is off IV amiodarone, patient has no air leak noted in the chest tube, she is still requiring 10 L high flow nasal cannula, O2 saturation remains marginal. Patient is being followed by many consultants. And I plan to discontinue her heparin and start the patient on Eliquis. Electrolytes are normal renal profile is normal PTT is therapeutic hemoglobin is 13.5 WBC count is 8.5 troponin is 0.238. Patient had positive blood cultures for Pseudomonas, hence she remains on cefepime at present. Her blood pressure is marginal, presently not requiring any pressors. Chest x-ray showed complete reexpansion of the right lung, right lower lobe consolidation is noted. Objective - Vital Signs Vital signs: Vital Signs Temp 97.9 F 06/29/21 08:00 Pulse 100 06/29/21 12:00 Resp 27 H 06/29/21 12:00 BP 100/54 06/29/21 12:00 Pulse Ox 91 L 06/29/21 10:00 Intake & Output 06/28/21 06/29/21 06/29/21 18:59 06:59 18:59 Intake Total 1637.558 460 840.097 Output Total 420 345 245 Balance 1217.558 115 595.097 Weight 75.2 kg Intake: IV 1431 460 341 485 1802 460 670 Intake, IV Titration 206.558 170.097 Amount Heparin Sod,Pork in 0.45% 206.558 170.097 NaCl 25,000 unit In 0.45 % NaCl 1 250ml.bag @ 18 UNITS/KG/HR 9.389 mls/hr IV .Q24H [facility] Rx#: [id number] Output: Chest Tube Drainage 0 Thora-Vent Right Mid- 0 Clavicular Chest Urine 420 345 245 Other: Voiding Method Indwelling Catheter Indwelling Catheter - Exam Physical Exam revealed 71-year-old female on nasal cannula, she is actually on 10 L high flow nasal cannula, in mild respiratory distress. Head: Atraumatic, normocephalic. HEENT:[Neck is supple.] [No neck masses.] [No thyromegaly.] [No JVD.] Chest: Diminished breath sounds at the right base. right sided chest thoravent is noted , it has been disconnected from the pleural VAC, and it is now capped right thoracic surgery on the case. Cardiac Exam: Irregular irregular rhythm, 2/6 systolic murmur thought the precordium. No rubs, no gallops Abdomen: [Obese, Soft, nontender, no megaly, no rebound, no guarding, normal bowel sounds.] Extremities: [No clubbing, 1+ bipedal edema, no cyanosis.] Neurological Exam: [No focal neurologic deficit.] Alert and oriented 3. Psychiatric: Normal mood affect and normal mental status examination. - Labs CBC & Chem 7: 06/29/21 05:57 06/29/21 12:55 Labs: Abnormal Lab Results - Last 24 Hours (Table) 06/29/21 06/29/21 06/29/21 Range/Units 05:57 05:57 05:57 Plt Count 145 L (150-450) k/uL Lymphocytes # (Manual) 0.43 L (1.0-4.8) k/uL Metamyelocytes # (Man) 0.26 H (0) k/uL Myelocytes # (Manual) 0.09 H (0) k/uL APTT 35.5 H (22.0-30.0) sec Sodium 131 L (137-145) mmol/L Carbon Dioxide 17 L (22-30) mmol/L BUN 30 H (7-17) mg/dL Glucose 142 H (74-99) mg/dL Calcium 7.4 L (8.4-10.2) mg/dL Alkaline Phosphatase 27 L (38-126) U/L Total Protein 4.8 L (6.3-8.2) g/dL Albumin 2.4 L (3.5-5.0) g/dL 06/29/21 Range/Units 12:55 Plt Count (150-450) k/uL Lymphocytes # (Manual) (1.0-4.8) k/uL Metamyelocytes # (Man) (0) k/uL Myelocytes # (Manual) (0) k/uL APTT 38.0 H (22.0-30.0) sec Sodium (137-145) mmol/L Carbon Dioxide (22-30) mmol/L BUN (7-17) mg/dL Glucose (74-99) mg/dL Calcium (8.4-10.2) mg/dL Alkaline Phosphatase (38-126) U/L Total Protein (6.3-8.2) g/dL Albumin (3.5-5.0) g/dL Microbiology - Last 24 Hours (Table) 06/27/21 19:00 Blood Culture Gram Stain - Preliminary Blood Blood Culture - Preliminary Gram Neg Bacilli 06/27/21 18:45 Blood Culture Gram Stain - Preliminary Blood Blood Culture - Preliminary Pseudomonas aeruginosa 06/27/21 19:00 Blood Culture - Final Blood 06/27/21 18:45 Blood Culture - Final Blood Assessment and Plan Assessment: Impression: Acute on chronic hypoxic respiratory failure, multifactorial. Acute sepsis and bacteremia secondary to pseudomonas aeruginosa. Acute pulmonary embolism without ventricular strain. Acute spontaneous right-sided pneumothorax. Acute exacerbation of COPD. Possible right lower lobe pneumonia/community-acquired pneumonia. New-onset atrial fibrillation. History of underlying coronary artery disease. History of endovascular aortic repair. Recommendation: Continue antibiotics/cefepime. Continue to monitor in the ICU. Continue present supportive care measures. Continue bronchodilators heparin however will transition to Eliquis. Continue thoravnt, possibly removal in the next 24 hours if the lung remains expanded. Titrate oxygen accordingly. Patient is normally on home oxygen. Overall prognosis is extremely poor and guarded. We will continue to follow. Time with Patient: Less than 30
[2021-06-29] MEDS: AMIODARONE 450 MG in DEXTROSE 5% IN WATER 250 ML IV SCH ×4 (14:31→20:50)
[2021-06-29] MEDS ORDERED: AMIODARONE 360 MG in DEXTROSE 5% IN WATER 200 ML IV ONE ×2 (14:35)
[2021-06-29] MEDS ORDERED: AMIODARONE IN DEXTROSE,ISO-OSM 360 MG/200 ML PLAST..BAG IV ONE (15:45)
--- NOTE | 2021-06-29 16:44 | P.PN ---
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 Chronic stable medical conditions include coronary artery disease with stent, some mild right-sided weakness from prior stroke, hypertension, hyperlipidemia, obstructive sleep apnea uses CPAP machine, TB in 1985, hiatal hernia, surgery for thoracic aortic aneurysm, sleeve gastrectomy [place] [address] Hamilton. Home oxygen 4 L Patient presented to the ER with some right-sided and right posterior pain. Worse with deep breathing. No trauma. More short of breath than baseline. No fever and chills. Some baseline cough. Appetite is fair.. Patient found to be in the ER started on IV heparin. Pulmonary was consulted. Patient's grandson at the bedside. Patient is vaccinated for COVID 19. July 08: ICU: Last night patient developed right-sided pneumothorax in the ER. Thora-vent was placed. Followed by chest tube. Patient moved to the ICU. Went to A. fib with rapid ventricular rate. Today started IV amiodarone. Remains on IV heparin. Patient's grandson and his mother at the bedside. Short of breath. Tired. July 09: ICU: Thora-vent.. Short of breath. A. fib with rapid ventricular rate. Back on IV amiodarone. Had been held. Tired. Taking small amounts. ensure ordered. FiO2 increased to 15 L Review of systems: Was done for constitutional, cardiovascular, GI, pulmonary. relevant finding as above Active Medications Acetaminophen (Acetaminophen Tab 325 Mg Tab) 650 mg PO Q6HR PRN PRN Reason: Mild Pain or Fever > 100.5 Last Admin: 06/28/21 17:30 Dose: 650 mg Documented by: Al Hydroxide/Mg Hydroxide (Mag Hydrox/Al Hydrox/Simeth 30 Ml Cup) 15 ml PO Q6HR PRN PRN Reason: Indigestion Albuterol Sulfate (Albuterol Nebulized 2.5 Mg/3 Ml) 2.5 mg INHALATION RT-QID PRN PRN Reason: Shortness Of Breath Amlodipine Besylate (Amlodipine 10 Mg Tab) 10 mg PO DAILY [facility] Last Admin: 06/29/21 09:30 Dose: 10 mg Documented by: Apixaban (Apixaban 5 Mg Tab) 10 mg PO BID [facility]; Protocol Stop: 07/05/21 12:29 Budesonide (Budesonide 1 Mg/2 Ml Nebu) 1 mg INHALATION RT-BID BRE Last Admin: 06/29/21 07:27 Dose: 1 mg Documented by: Calcium Carbonate/Glycine (Calcium Carbonate 500 Mg Chewable) 1,000 mg PO Q4HR PRN PRN Reason: Dyspepsia Formoterol Fumarate (Formoterol Fumarate 20 Mcg/2 Ml Nebu) 20 mcg INHALATION RT-BID BRE Last Admin: 06/29/21 07:27 Dose: 20 mcg Documented by: Heparin Sodium (Porcine) (Heparin Sodium 1,000 Un/Ml (10ml Vl)) 0 unit IV PER PROTOCOL PRN; Protocol PRN Reason: Low PTT Stop: 06/29/21 21:00 Last Admin: 06/29/21 07:06 Dose: 3,000 unit Documented by: Hydromorphone HCl (Hydromorphone 1 Mg/Ml 1 Ml Syringe) 1 mg IVP Q3HR PRN PRN Reason: Pain Last Admin: 06/29/21 13:04 Dose: 1 mg Documented by: Heparin Sodium/Sodium Chloride (25,000 unit/ Sodium Chloride) 250 mls @ 9.389 mls/hr IV .Q24H BRE; Protocol Stop: 06/29/21 21:00 Last Titration: 06/29/21 07:08 Dose: 20 units/kg/hr, 10.433 mls/hr Documented by: Sodium Chloride (Saline 0.9%) 1,000 mls @ 130 mls/hr IV .Q7H42M BRE Last Admin: 06/29/21 14:31 Dose: Not Given Documented by: Cefepime HCl 2 gm/ Sodium (Chloride) 100 mls @ 25 mls/hr IVPB Q12HR BRE Last Admin: 06/29/21 09:30 Dose: 25 mls/hr Documented by: Amiodarone HCl 360 mg/ (Dextrose/Water) 200 mls @ 33.333 mls/hr IV .Q6H ONE; Protocol Stop: 06/29/21 20:34 Ipratropium Coram (Ipratropium 0.5 Mg/2.5 Ml Nebu) 0.5 mg INHALATION Q4H BRE Last Admin: 06/29/21 15:09 Dose: 0.5 mg Documented by: Lactulose (Lactulose 20 Gm/30 Ml Cup) 20 gm PO DAILY PRN PRN Reason: Constipation Lorazepam (Lorazepam 0.5 Mg Tab) 0.5 mg PO Q6HR PRN PRN Reason: Anxiety Last Admin: 06/28/21 17:54 Dose: 0.5 mg Documented by: Melatonin (Melatonin 3 Mg Tablet) 3 mg PO HS PRN PRN Reason: Insomnia Metoprolol Tartrate (Metoprolol Tartrate 25 Mg Tab) 25 mg PO DAILY [facility] Last Admin: 06/29/21 09:30 Dose: 25 mg Documented by: Miscellaneous Information (Potassium Replacement Protocol 1 Each Misc) 1 each MISCELLANE DAILY PRN; Protocol PRN Reason: Per Protocol Miscellaneous Information (Magnesium Replacement Protocol 1 Each Misc) 1 each MISCELLANE DAILY PRN; Protocol PRN Reason: Per Protocol Multi-Ingred Cream/Lotion/Oil/Oint (Hydrophilic Cream 180 Gm Tube) 1 applic TOPICAL DAILY [facility]; Protocol Last Admin: 06/29/21 09:30 Dose: 1 applic Documented by: Naloxone HCl (Naloxone 0.4 Mg/Ml 1 Ml Vial) 0.2 mg IV Q2M PRN PRN Reason: Opioid Reversal Ondansetron HCl (Ondansetron 4 Mg/2 Ml Vial) 4 mg IVP Q8HR PRN PRN Reason: Nausea And Vomiting Last Admin: 06/28/21 10:31 Dose: 4 mg Documented by: Pantoprazole Sodium (Pantoprazole 40 Mg Tablet) 40 mg PO DAILY [facility] Last Admin: 06/29/21 09:30 Dose: 40 mg Documented by: Prednisone (Prednisone 10 Mg Tab) 10 mg PO DAILY [facility] Last Admin: 06/29/21 09:30 Dose: 10 mg Documented by: Sodium Bicarbonate (Sodium Bicarbonate Tab 650 Mg Tab) 650 mg PO TID [facility] Last Admin: 06/29/21 09:30 Dose: 650 mg Documented by: Past medical history to include: Coronary artery disease with stent, COPD, stroke with some mild right-sided weakness, hyperlipidemia, hypertension, obstructive sleep apnea uses CPAP, TB 1985, hiatal hernia, sleeve gastrectomy in 2018, surgery for thoracic aortic aneurysm, 4 L of oxygen at home Social history: Started smoking age of 15 stopped in 2011. One pack a day. Alcohol occasionally. Lives with her grandson. Occasionally uses a cane or a walker. Family history: [place], pacemaker, COPD Physical examination: VITAL SIGNS: Afebrile, 158, 27, 100/54, on 15 L nasal cannula GENERAL: Propped up in bed very short of breath, Thora-vent: EYES: Pupils equal. Conjunctiva normal. HEENT: External appearance of nose and ears normal, oral cavity grossly normal. NECK: JVD not raised; masses not palpable. HEART: First and second heart sounds are normal; mild edema in the left lower extremity LUNGS: Respiratory rate increased, decreased breath sounds. Prolonged expiration. ABDOMEN: Soft, nontender, liver spleen not palpable, no masses palpable. PSYCH: Alert and oriented x3; mood and affect anxious NEUROLOGICAL: Cranial nerves grossly intact; no facial asymmetry, mild right hemiparesis INVESTIGATIONS, reviewed in the clinical context: 2-D echocardiogram: EF 50-55% June 28: White count 3.9 hemoglobin 13.1 platelets 126 sodium 135 potassium 3 when necessary 24 crit and 0.7 to White count 16.2 hemoglobin 14.9 platelets 212 d-dimer 23.3 sodium 137 potassium 3 BUN 28 creatinine 1.14 Troponin I 0.508 proBNP 688 Coronavirus [PCR] not detected EKG tracing personally reviewed by me-normal sinus rhythm. Flipped T waves. The anterolateral leads. PVC. Computed tomography scan of the chest: Aortic stent. Large pneumatocele is in the posterior right lung. Acute PE in the right middle and lower lobe arteries secondary intensity branches. Right lower lobe consolidation and/or mass. Chest x-ray film personally reviewed by me-right basilar infiltrate, aortic graft Assessment and plan: -Acute PE in the right middle and lower lobe arteries and secondary branches, IV heparin. -Probable right basilar pneumonia suspected gram-negative organism IV cefepime -New onset atrial fibrillation with a rapid ventricular rate: Controlled IV amiodarone -IV heparin monitoring Follow PTT -Spontaneous pneumothorax: New Thora-vent, capped -Chronic hypoxic respiratory failure from COPD On home oxygen 4 -Acute hypoxic respiratory failure from PE: Worsening Oxygen supplementation. FiO2 15 liters -Acute severe COPD exacerbation in an ex-smoker-: Slow to respond on bronchodilators, inhaled steroids. Long-acting beta agonist. -Coronary artery disease with stent Lopressor, -Mild right hemiparesis from prior stroke -Hyperlipidemia, -Hypokalemia Replacement potassium -Essential hypertension, amlodipine 10 mg daily, Lopressor 25 mg a day -Obstructive sleep apnea uses CPAP , continue the same -Hiatal hernia -History of sleeve gastrectomy -DO NOT RESUSCITATE IV heparin. IV cefepime. IV amiodarone. Bronchodilators. Prognosis guarded. Follow-up with multiple consultants.
[2021-06-29] MEDS: HEPARIN SOD,PORK IN 0.45% NACL 25,000 UNIT in 0.45% NACL 1 250ML.BAG IV SCH (17:33)
[2021-06-29] MEDS: APIXABAN 5 MG TAB PO SCH (21:32)
[2021-06-30] MEDS: IPRATROPIUM 0.5 MG/2.5 ML NEBU INHALATION SCH ×6 (01:11→21:08)
[2021-06-30] MEDS ORDERED: DEXTROSE 5% IN WATER 100 ML with AMIODARONE 150 MG IV ONE ×2 (02:40→22:00)
[2021-06-30] MEDS ORDERED: AMIODARONE 360 MG in DEXTROSE 5% IN WATER 200 ML IV ONE ×4 (02:40→22:00)
[2021-06-30] MEDS ORDERED: AMIODARONE IN DEXTROSE,ISO-OSM 150 MG/100 ML PLAST..BAG IV ONE ×2 (02:47→22:32)
[2021-06-30] MEDS ORDERED: AMIODARONE IN DEXTROSE,ISO-OSM 360 MG/200 ML PLAST..BAG IV ONE ×2 (02:47→22:32)
[2021-06-30] MEDS: SODIUM CHLORIDE 0.9% 1,000 ML IV SCH ×2 (02:47→14:45)
[2021-06-30] MEDS: AMIODARONE 450 MG in DEXTROSE 5% IN WATER 250 ML IV SCH ×2 (02:52)
[2021-06-30 04:54] LABS: Basophils % (A) 0 %; Eosinophils % (A) 1 %; HCT 37.7 % (34.0-46.0); Hypochromasia Slight; Lymphocytes # (A) 0.5 k/uL (1.0-4.8); Lymphocytes % (A) 6 %; MCHC 31.9 g/dL (31.0-37.0); MCV 100.3 fL (80.0-100.0); Mean Platelet Volume 8.3; Monocytes # (A) 0.3 k/uL (0-1.0); Monocytes % (A) 3 %; Neutrophils % (A) 89 %; Platelet Count 149 k/uL (150-450); RBC 3.76 m/uL (3.80-5.40); RDW 13.6 % (11.5-15.5); WBC 7.8 k/uL (3.8-10.6)
[2021-06-30 05:08] LABS: Chloride 95 mmol/L (98-107)
[2021-06-30] MEDS: HYDROmorphone 1 MG/ML 1 ML SYRINGE IVP PRN ×4 (05:08→19:38)
[2021-06-30 05:11] LABS: ALT 11 U/L (4-34); AST 24 U/L (14-36); African American GFR (CKD) >90 (>60 ml/min/1.73 sqM); Albumin 2.1 g/dL (3.5-5.0); Alkaline Phosphatase 33 U/L (38-126); Anion Gap 15 mmol/L; Blood Urea Nitrogen 23 mg/dL (7-17); Calcium 7.1 mg/dL (8.4-10.2); Carbon Dioxide 16 mmol/L (22-30); Glucose 329 mg/dL (74-99); Non-African American GFR(CKD) >90 (>60 ml/min/1.73 sqM); Potassium 3.1 mmol/L (3.5-5.1); Sodium 126 mmol/L (137-145); Total Bilirubin 0.4 mg/dL (0.2-1.3); Total Protein 4.1 g/dL (6.3-8.2)
[2021-06-30] MEDS: POTASSIUM CHLORIDE ER 20 MEQ TAB.ER PO SCH ×2 (06:13→06:47)
--- NOTE | 2021-06-30 07:28 | P.PN ---
Subjective Progress Note Date: 06/30/21 Principal diagnosis: Pulmonary embolism/paroxysmal atrial fibrillation The patient is a pleasant 71-year-old female patient was admitted to the hospital with acute on chronic hypoxemic respiratory failure. That was multi- factorial and related to pneumothorax as well as pulmonary embolism complicated by atrial fibrillation with RVR which seems to be new diagnosis of the patient. The patient was seen this morning. She continues to be hypoxic on 15 L oxygen. Hemodynamically she is stable and not on any vasopressors at this point. Her pressure is marginal. She went into A. fib with RVR and subsequently converted to normal sinus mechanism. I'm going to stop the amlodipine and increase the dose of metoprolol to 50 mg by mouth twice a day beach she is on oral anticoagu lation which we'll continue. Objective - Vital Signs Vital signs: Vital Signs Temp 98.4 F 06/30/21 04:00 Pulse 84 06/30/21 07:00 Resp 21 06/30/21 07:00 BP 109/61 06/30/21 07:00 Pulse Ox 93 L 06/30/21 07:00 Intake & Output 06/29/21 06/30/21 06/30/21 18:59 06:59 18:59 Intake Total 1420.097 535.558 30 Output Total 525 620 40 Balance 895.097 -84.442 -10 Weight 75 kg Intake: IV 1250 360 30 130 1250 360 30 Intake, IV Titration 170.097 100.558 Amount Amiodarone 450 mg In 100.558 Dextrose 5% in Water 250 ml @ 0.5 MG/MIN 16.667 mls/hr IV .Q15H BRE Rx#: [id number] Heparin Sod,Pork in 0.45% 170.097 NaCl 25,000 unit In 0.45 % NaCl 1 250ml.bag @ 18 UNITS/KG/HR 9.389 mls/hr IV .Q24H BRE Rx#: [id number] Oral 75 Output: Chest Tube Drainage 25 Thora-Vent Right Mid- 25 Clavicular Chest Urine 525 595 40 Other: Voiding Method Indwelling Catheter Indwelling Catheter - Constitutional General appearance: Present: no acute distress - Respiratory Respiratory: bilateral: diminished - Cardiovascular Rhythm: regular - Labs CBC & Chem 7: 06/30/21 04:32 06/30/21 04:32 Labs: Abnormal Lab Results - Last 24 Hours (Table) 06/29/21 06/29/21 06/30/21 Range/Units 05:57 12:55 04:32 RBC 3.76 L (3.80-5.40) m/uL MCV 100.3 H (80.0-100.0) fL Plt Count 149 L (150-450) k/uL Lymphocytes # 0.5 L (1.0-4.8) k/uL Lymphocytes # (Manual) 0.43 L (1.0-4.8) k/uL Metamyelocytes # (Man) 0.26 H (0) k/uL Myelocytes # (Manual) 0.09 H (0) k/uL APTT 38.0 H (22.0-30.0) sec Sodium (137-145) mmol/L Potassium (3.5-5.1) mmol/L Chloride (98-107) mmol/L Carbon Dioxide (22-30) mmol/L BUN (7-17) mg/dL Glucose (74-99) mg/dL Calcium (8.4-10.2) mg/dL Alkaline Phosphatase (38-126) U/L Total Protein (6.3-8.2) g/dL Albumin (3.5-5.0) g/dL 06/30/21 Range/Units 04:32 RBC (3.80-5.40) m/uL MCV (80.0-100.0) fL Plt Count (150-450) k/uL Lymphocytes # (1.0-4.8) k/uL Lymphocytes # (Manual) (1.0-4.8) k/uL Metamyelocytes # (Man) (0) k/uL Myelocytes # (Manual) (0) k/uL APTT (22.0-30.0) sec Sodium 126 L (137-145) mmol/L Potassium 3.1 L (3.5-5.1) mmol/L Chloride 95 L (98-107) mmol/L Carbon Dioxide 16 L (22-30) mmol/L BUN 23 H (7-17) mg/dL Glucose 329 H (74-99) mg/dL Calcium 7.1 L (8.4-10.2) mg/dL Alkaline Phosphatase 33 L (38-126) U/L Total Protein 4.1 L (6.3-8.2) g/dL Albumin 2.1 L (3.5-5.0) g/dL Microbiology - Last 24 Hours (Table) 06/27/21 19:00 Blood Culture Gram Stain - Preliminary Blood Blood Culture - Preliminary Gram Neg Bacilli 06/27/21 18:45 Blood Culture Gram Stain - Preliminary Blood Blood Culture - Preliminary Pseudomonas aeruginosa Assessment and Plan Assessment: Assessment #1 acute hypoxic respiratory failure likely to be multi-factorial #2 pulmonary embolism seems to be non-massive #3 paroxysmal atrial fibrillation likely to be triggered by the pulmonary embolism #4 pneumothorax Plan #1 continue oral anticoagulation #2 increase the dose of metoprolol #3 continue amiodarone #4 follow-up with the patient
--- NOTE | 2021-06-30 08:16 | XR ---
EXAMINATION TYPE: XR chest 1V portable DATE OF EXAM: 06/30/2021 COMPARISON: 06/29/2021 INDICATION: Pneumothorax TECHNIQUE: Single frontal view of the chest is obtained. FINDINGS: The heart size is normal. The pulmonary vasculature is normal. There is increasing opacification through the right lung. A small to moderate right pleural effusion remains present. Pneumothorax not clearly evident on the current examination. Some minimal infiltrat e may be developing along the left base. Stent present within the aorta. IMPRESSION: 1. Increasing opacification to the right lung. 2. Persistent small to moderate right pleural fluid. 3. Developing left lower lobe infiltrate. 4. No pneumothorax evident. Right-sided catheter remains present.
[2021-06-30] MEDS: FORMOTEROL FUMARATE 20 MCG/2 ML NEBU INHALATION SCH ×2 (08:27→21:08)
[2021-06-30] MEDS: BUDESONIDE 1 MG/2 ML NEBU INHALATION SCH ×2 (08:27→21:08)
--- NOTE | 2021-06-30 08:41 | P.PN ---
Subjective Progress Note Date: 06/30/21 Principal diagnosis: Right-sided pneumothorax, acute pulmonary embolism in the right middle and lower pulmonary arteries, acute on chronic hypoxemic respiratory failure, new-onset rapid atrial fibrillation, leukocytosis present on admission, possible right lower lobe pneumonia. Previous medical history of severe COPD with home oxygen dependence, coronary artery disease with myocardial infarction and PCI, thoracic aortic aneurysm with endovascular repair, previous CVA with residual right-sided weakness, obstructive sleep apnea without home CPAP use, tuberculosis in 1985, obesity with previous sleeve gastrectomy, previous tobacco dependence, occasional marijuana use The patient was seen this morning in the intensive care unit in mild distress. Her oxygen demands have increased, she continues to go in and out of A. fib RVR. Denies pain, does continue to complain of shortness of breath. Currently on 15 L high flow nasal cannula along with nonrebreather with oxygen saturation in the high 80s to low 90s. Right-sided thoravent remains in place to waterseal, no air leak this morning. Chest x-ray reviewed. Objective - Vital Signs Vital signs: Vital Signs Temp 98.4 F 06/30/21 04:00 Pulse 90 06/30/21 08:28 Resp 21 06/30/21 07:00 BP 109/61 06/30/21 07:00 Pulse Ox 90 L 06/30/21 08:28 Intake & Output 06/29/21 06/30/21 06/30/21 18:59 06:59 18:59 Intake Total 1420.097 535.558 30 Output Total 525 620 40 Balance 895.097 -84.442 -10 Weight 75 kg Intake: IV 1250 360 30 130 1250 360 30 Intake, IV Titration 170.097 100.558 Amount Amiodarone 450 mg In 100.558 Dextrose 5% in Water 250 ml @ 0.5 MG/MIN 16.667 mls/hr IV .Q15H BRE Rx#: [id number] Heparin Sod,Pork in 0.45% 170.097 NaCl 25,000 unit In 0.45 % NaCl 1 250ml.bag @ 18 UNITS/KG/HR 9.389 mls/hr IV .Q24H BRE Rx#: [id number] Oral 75 Output: Chest Tube Drainage 25 Thora-Vent Right Mid- 25 Clavicular Chest Urine 525 595 40 Other: Voiding Method Indwelling Catheter Indwelling Catheter - Exam CONSTITUTIONAL: Sitting up in bed in the intensive care unit in mild respiratory distress RESPIRATORY: Lungs sounds very diminished bilaterally with expiratory wheezes heard throughout. Respirations even, slightly labored. Currently on 15 L high flow nasal cannula and nonrebreather with oxygen saturation high 80s to low 90s. Weak cough, more like clearing her throat CARDIOVASCULAR: S1, S2 present. Regular rate and rhythm, sinus rhythm on telemetry, was in A. fib with RVR this morning. GASTROINTESTINAL: Abdomen soft, nontender, nondistended. Active bowel sounds present 4 quadrants. GENITOURINARY: Bowman present draining yellow urine INTEGUMENTARY: Skin is warm and dry NEUROLOGIC: Cranial nerves II through XII intact MUSKULOSKELETAL: Able to move all extremities, strength equal bilaterally PSYCHIATRIC: Alert and oriented to person place and time, appropriate affect, intact judgment and insight INVASIVE LINES AND TUBES: Right thoravent present to waterseal, no air leak present - Allied health notes Allied health notes reviewed: nursing - Labs CBC & Chem 7: 06/30/21 04:32 06/30/21 04:32 Labs: Abnormal Lab Results - Last 24 Hours (Table) 06/29/21 06/29/21 06/30/21 Range/Units 05:57 12:55 04:32 RBC 3.76 L (3.80-5.40) m/uL MCV 100.3 H (80.0-100.0) fL Plt Count 149 L (150-450) k/uL Lymphocytes # 0.5 L (1.0-4.8) k/uL Lymphocytes # (Manual) 0.43 L (1.0-4.8) k/uL Metamyelocytes # (Man) 0.26 H (0) k/uL Myelocytes # (Manual) 0.09 H (0) k/uL APTT 38.0 H (22.0-30.0) sec Sodium (137-145) mmol/L Potassium (3.5-5.1) mmol/L Chloride (98-107) mmol/L Carbon Dioxide (22-30) mmol/L BUN (7-17) mg/dL Glucose (74-99) mg/dL Calcium (8.4-10.2) mg/dL Alkaline Phosphatase (38-126) U/L Total Protein (6.3-8.2) g/dL Albumin (3.5-5.0) g/dL 06/30/21 Range/Units 04:32 RBC (3.80-5.40) m/uL MCV (80.0-100.0) fL Plt Count (150-450) k/uL Lymphocytes # (1.0-4.8) k/uL Lymphocytes # (Manual) (1.0-4.8) k/uL Metamyelocytes # (Man) (0) k/uL Myelocytes # (Manual) (0) k/uL APTT (22.0-30.0) sec Sodium 126 L (137-145) mmol/L Potassium 3.1 L (3.5-5.1) mmol/L Chloride 95 L (98-107) mmol/L Carbon Dioxide 16 L (22-30) mmol/L BUN 23 H (7-17) mg/dL Glucose 329 H (74-99) mg/dL Calcium 7.1 L (8.4-10.2) mg/dL Alkaline Phosphatase 33 L (38-126) U/L Total Protein 4.1 L (6.3-8.2) g/dL Albumin 2.1 L (3.5-5.0) g/dL Microbiology - Last 24 Hours (Table) 06/27/21 19:00 Blood Culture Gram Stain - Preliminary Blood Blood Culture - Preliminary Gram Neg Bacilli 06/27/21 18:45 Blood Culture Gram Stain - Preliminary Blood Blood Culture - Preliminary Pseudomonas aeruginosa - Imaging and Cardiology Chest x-ray: report reviewed, image reviewed Assessment and Plan Assessment: 1. Right-sided pneumothorax, status post thoravent placement by the emergency room physicians with reexpansion of the right lung 2. Acute pulmonary embolism in the right middle and lower pulmonary arteries 3. Acute on chronic hypoxemic respiratory failure 4. New-onset rapid atrial fibrillation 5. Leukocytosis present on admission, possible right lower lobe pneumonia 6. History of severe COPD with home oxygen dependence 7. History of coronary artery disease with myocardial infarction and PCI 8. History of thoracic aortic aneurysm with endovascular repair 9. Previous CVA with residual right-sided weakness 10. Obstructive sleep apnea without home CPAP use 11. Tuberculosis in 1985 12. Obesity with previous sleeve gastrectomy 13. Previous tobacco dependence 14. Occasional marijuana use Plan: 1. Will place occlusive cap to thoravent. Repeat chest x-ray later this afternoon, if no pneumothorax present will consider discontinuing thoravent 2. Will continue to monitor daily chest x-rays 3. Wean O2 as tolerated. Bronchodilators per pulmonology. Encourage incentive spirometry use 4. Increase activity as tolerated 5. Heart rhythm management per cardiology 6. Antibiotics per pulmonology 7. Medical management for the comorbidities per primary care service 8. Will continue to follow Time with Patient: Greater than 30
[2021-06-30] MEDS: PANTOPRAZOLE 40 MG TABLET PO SCH (09:43)
[2021-06-30] MEDS: APIXABAN 5 MG TAB PO SCH ×2 (09:43→20:57)
[2021-06-30] MEDS: predniSONE 10 MG TAB PO SCH (09:43)
[2021-06-30] MEDS: CEFEPIME 2 GM in SODIUM CHLORIDE 0.9% 100 ML IVPB SCH ×2 (09:43→18:27)
[2021-06-30] MEDS: SODIUM BICARBONATE TAB 650 MG TAB PO SCH ×3 (09:43→20:57)
[2021-06-30] MEDS: METOPROLOL TARTRATE 50 MG TAB PO SCH ×2 (09:43→20:57)
[2021-06-30] MEDS: HYDROPHILIC CREAM 180 GM TUBE TOPICAL SCH (09:43)
[2021-06-30 12:03] LABS: Glucose,Whole Blood 83 mg/dL (75-99)
[2021-06-30 12:38] LABS: Magnesium 2.2 mg/dL (1.6-2.3); Potassium 4.2 mmol/L (3.5-5.1)
--- NOTE | 2021-06-30 13:07 | XR ---
EXAMINATION TYPE: XR chest 1V portable DATE OF EXAM: 06/30/2021 COMPARISON: 06/28/2021 HISTORY: Rule out pneumothorax. TECHNIQUE: Single frontal view of the chest is obtained. FINDINGS: There is a distal aortic arch and descending thoracic aortic stent. Right-sided chest tube with no pneumothorax. There is a moderate right pleural effusion. There is a retrocardiac opacity which has developed in the interval is consistent with effusion/atele ctasis. The heart size is normal. Just. The osseous structures are intact IMPRESSION: 1. No change in right-sided chest without evidence of pneumothorax. 2. No change in the moderate right pleural effusion. 3. Interval development of left lower lobe effusion/atelectasis.
--- NOTE | 2021-06-30 13:37 | US ---
EXAMINATION TYPE: US chest DATE OF EXAM: 06/30/2021 COMPARISON: XRAY CLINICAL HISTORY: Markings for thoracentesis by pulmonary staff. TECHNIQUE: Targeted ultrasound of the posterior lower bilateral hemithoraces EXAM MEASUREMENTS: Right Pleural Effusion pocket size: 9.6 cm Right skin surface to fluid distance: 2.9 cm Left Pleural Effusion pocket size: 1.8 cm Right side marked for possible thoracentesis outside the dept. Pulmonologists are able to review the images in the patient?s EMR. Very large amount of debris? in the right chest IMPRESSIONS: 1. Complex fluid in the posterior right chest. Debris may be present. 2. There may be a small left pleural fluid collection.
--- NOTE | 2021-06-30 14:09 | P.PN ---
Subjective Progress Note Date: 06/30/21 Principal diagnosis: Acute hypoxic respiratory failure, multifactorial. This is a 71-year-old female with history of severe COPD, O2 dependent, normally sees Dr. Holland on outpatient basis. Patient is also known to have history of underlying coronary artery disease, previous PCI back in 2016. History of endovascular aortic aneurysm repair, patient has chronic hypoxic referral failure maintained on oxygen at home. She presented to the ER yesterday with one month history of cough and shortness of breath. And her symptoms have become significantly worse. Patient was also developing some right vague chest discomfort. Seen in the ER, and CT angiogram of the chest showed evidence of right sided pulmonary embolism. Patient was started on heparin, and later on a follow-up chest x-ray showed evidence of large right-sided pneumothorax. Patient had a chest tube placed by the ER physician/jaylen about with complete reexpansion of the right lung, however continued to have some questionable inflammatory changes in the right lower lobe or atelectatic changes in the right lower lobe. Patient was seen by many consultants because she developed atrial fibrillation with RVR, cardiology saw the patient and recommended treatment with amiodarone. Patient was also seen by thoracic surgery for a right-sided pneumothorax. And presently the chest tube seems to be in the proper position, and the lung seems to be fully expanded. Patient is also on heparin for her atrial fibrillation is also for her acute pulmonary embolism. Labs today showed W Zbigniew of 3.9 hemoglobin 13.1 and platelets are 1 26,000 electrolytes showed low potassium of 3.0 and that being addressed accordingly. Troponin is 0.238 Reevaluated today on 06/29/2021, patient remains in the ICU, remains on heparin she is off IV amiodarone, patient has no air leak noted in the chest tube, she is still requiring 10 L high flow nasal cannula, O2 saturation remains marginal. Patient is being followed by many consultants. And I plan to discontinue her heparin and start the patient on Eliquis. Electrolytes are normal renal profile is normal PTT is therapeutic hemoglobin is 13.5 WBC count is 8.5 troponin is 0.238. Patient had positive blood cultures for Pseudomonas, hence she remains on cefepime at present. Her blood pressure is marginal, presently not requiring any pressors. Chest x-ray showed complete reexpansion of the right lung, right lower lobe consolidation is noted. Reevaluated today on 06/30/2021, patient remains in the ICU, she is presently on high flow nasal cannula, and O2 saturation is marginal at best. Her daughter is at bedside, and updated her daughter on her condition. Dr. Masters also discussed her condition with the daughter, initially her daughter was going to change her CODE STATUS from DO NOT RESUSCITATE to full code, but after discussing her status with us and with Dr. Masters, CODE STATUS remains DO NOT RESUSCITATE. In the meantime the patient is developing worsening pleural effusion on the right side, there is no evidence of pneumothorax, and the lung is fully expanded. Ultrasound of the chest is suggestive of a complicated right-sided pleural effusion with debris, I am a bit concerned about hemothorax in the right chest, I'm also concerned about the possibility of empyema. Patient did come in with pseudomonas bacteremia, and I would again be concerned about and empyema in the right pleural space. I am requesting pigtail catheter placement by interventional radiology hopefully it could be done today. Patient was on heparin which was discontinued yesterday, and she was started on Eliquis. She only received 1 dose last night and one dose today. WBC count today is 7.8 hemoglobin is 12. Sodium is 126 potassium 4.2 bicarb is 16 with anion gap of 15 BUN is 23 creatinine 0.52. Objective - Vital Signs Vital signs: Vital Signs Temp 98.9 F 06/30/21 08:00 Pulse 69 06/30/21 12:05 Resp 19 06/30/21 11:00 BP 119/65 06/30/21 11:00 Pulse Ox 91 L 06/30/21 11:00 Intake & Output 06/29/21 06/30/21 06/30/21 18:59 06:59 18:59 Intake Total 1420.097 535.558 120 Output Total 525 620 160 Balance 895.097 -84.442 -40 Weight 75 kg Intake: IV 1250 360 536 428 4700 360 120 Intake, IV Titration 170.097 100.558 Amount Amiodarone 450 mg In 100.558 Dextrose 5% in Water 250 ml @ 0.5 MG/MIN 16.667 mls/hr IV .Q15H [facility] Rx#: [id number] Heparin Sod,Pork in 0.45% 170.097 NaCl 25,000 unit In 0.45 % NaCl 1 250ml.bag @ 18 UNITS/KG/HR 9.389 mls/hr IV .Q24H [facility] Rx#: [id number] Oral 75 Output: Chest Tube Drainage 25 Thora-Vent Right Mid- 25 Clavicular Chest Urine 525 595 160 Other: Voiding Method Indwelling Catheter Indwelling Catheter Indwelling Catheter - Exam Physical Exam revealed 71-year-old female on nasal cannula, she is actually on 10 L high flow nasal cannula, in mild respiratory distress. Head: Atraumatic, normocephalic. HEENT:[Neck is supple.] [No neck masses.] [No thyromegaly.] [No JVD.] Chest: Diminished breath sounds at the right base. right sided chest thoravent is noted Cardiac Exam: Irregular irregular rhythm, 2/6 systolic murmur thought the precordium. No rubs, no gallops Abdomen: [Obese, Soft, nontender, no megaly, no rebound, no guarding, normal bowel sounds.] Extremities: [No clubbing, 1+ bipedal edema, no cyanosis.] Neurological Exam: [No focal neurologic deficit.] Alert and oriented 3. Psychiatric: Normal mood affect and normal mental status examination. - Labs CBC & Chem 7: 06/30/21 04:32 06/30/21 11:53 Labs: Abnormal Lab Results - Last 24 Hours (Table) 06/30/21 06/30/21 Range/Units 04:32 04:32 RBC 3.76 L (3.80-5.40) m/uL MCV 100.3 H (80.0-100.0) fL Plt Count 149 L (150-450) k/uL Lymphocytes # 0.5 L (1.0-4.8) k/uL Sodium 126 L (137-145) mmol/L Potassium 3.1 L (3.5-5.1) mmol/L Chloride 95 L (98-107) mmol/L Carbon Dioxide 16 L (22-30) mmol/L BUN 23 H (7-17) mg/dL Glucose 329 H (74-99) mg/dL Calcium 7.1 L (8.4-10.2) mg/dL Alkaline Phosphatase 33 L (38-126) U/L Total Protein 4.1 L (6.3-8.2) g/dL Albumin 2.1 L (3.5-5.0) g/dL Microbiology - Last 24 Hours (Table) 06/27/21 18:45 Blood Culture Gram Stain - Final Blood Blood Culture - Final Pseudomonas aeruginosa 06/27/21 19:00 Blood Culture Gram Stain - Final Blood Blood Culture - Final Pseudomonas aeruginosa Assessment and Plan Assessment: Impression: Acute on chronic hypoxic respiratory failure, multifactorial. Acute sepsis and bacteremia secondary to pseudomonas aeruginosa. Acute pulmonary embolism without ventricular strain. Acute spontaneous right-sided pneumothorax. Acute exacerbation of COPD. Possible right lower lobe pneumonia/community-acquired pneumonia. New-onset atrial fibrillation. History of underlying coronary artery disease. History of endovascular aortic repair. Right-sided pleural effusion, possibly complicated could very well be parapneumonic, could be empyema, or could even be a hemothorax in the right pleural space. Hence I'm recommending interventional radiology to evaluate for pigtail catheter placement. Recommendation: Continue antibiotics/cefepime. Continue to monitor in the ICU. Continue present supportive care measures. Continue bronchodilators heparin however will transition to Eliquis. Continue thoravent for now.. Titrate oxygen accordingly. Patient is normally on home oxygen. Overall prognosis is extremely poor and guarded. We will continue to follow. CODE STATUS is DO NOT RESUSCITATE. Updated her daughter on her condition at bedside. Time with Patient: Less than 30
--- NOTE | 2021-06-30 14:32 | P.PN ---
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 Chronic stable medical conditions include coronary artery disease with stent, some mild right-sided weakness from prior stroke, hypertension, hyperlipidemia, obstructive sleep apnea uses CPAP machine, TB in 1985, hiatal hernia, surgery for thoracic aortic aneurysm, sleeve gastrectomy in [address] Hamilton. Home oxygen 4 L Patient presented to the ER with some right-sided and right posterior pain. Worse with deep breathing. No trauma. More short of breath than baseline. No fever and chills. Some baseline cough. Appetite is fair.. Patient found to be in the ER started on IV heparin. Pulmonary was consulted. Patient's grandson at the bedside. Patient is vaccinated for COVID 19. July 08: ICU: Last night patient developed right-sided pneumothorax in the ER. Thora-vent was placed. Followed by chest tube. Patient moved to the ICU. Went to A. fib with rapid ventricular rate. Today started IV amiodarone. Remains on IV heparin. Patient's grandson and his mother at the bedside. Short of breath. Tired. June 29: ICU: Thora-vent.. Short of breath. A. fib with rapid ventricular rate. Back on IV amiodarone. Had been held. Tired. Taking small amounts. ensure ordered. FiO2 increased to 15 L June 30: ICU: Thora-vent is capped. Short of breath. Patient yesterday went back in sinus rhythm. Then back into A. fib with rapid ventricular rate. Put back on IV amiodarone. Patient's daughter was out of town at the bedside. She had talked to the patient and felt the patient was not sure about the CODE STATUS. So we will going to revert the patient to full code. I did ask her to discuss with the patient and let us know. No refills DO NOT RESUSCITATE will be appropriate but he wanted the patient and the daughter decided. Later the patient came back and informed be that she discussed with the patient again and patient was to remain DO NOT RESUSCITATE. Decreased oral intake. On 15 L of oxygen. Started on eliquis. IV heparin discontinued. Review of systems: Was done for constitutional, cardiovascular, GI, pulmonary. relevant finding as above Active Medications Acetaminophen (Acetaminophen Tab 325 Mg Tab) 650 mg PO Q6HR PRN PRN Reason: Mild Pain or Fever > 100.5 Last Admin: 06/28/21 17:30 Dose: 650 mg Documented by: Al Hydroxide/Mg Hydroxide (Mag Hydrox/Al Hydrox/Simeth 30 Ml Cup) 15 ml PO Q6HR PRN PRN Reason: Indigestion Albuterol Sulfate (Albuterol Nebulized 2.5 Mg/3 Ml) 2.5 mg INHALATION RT-QID PRN PRN Reason: Shortness Of Breath Apixaban (Apixaban 5 Mg Tab) 10 mg PO BID BRE; Protocol Stop: 07/05/21 12:29 Last Admin: 06/30/21 09:43 Dose: 10 mg Documented by: Budesonide (Budesonide 1 Mg/2 Ml Nebu) 1 mg INHALATION RT-BID BRE Last Admin: 06/30/21 08:27 Dose: 1 mg Documented by: Calcium Carbonate/Glycine (Calcium Carbonate 500 Mg Chewable) 1,000 mg PO Q4HR PRN PRN Reason: Dyspepsia Formoterol Fumarate (Formoterol Fumarate 20 Mcg/2 Ml Nebu) 20 mcg INHALATION RT-BID BRE Last Admin: 06/30/21 08:27 Dose: 20 mcg Documented by: Hydromorphone HCl (Hydromorphone 1 Mg/Ml 1 Ml Syringe) 1 mg IVP Q3HR PRN PRN Reason: Pain Last Admin: 06/30/21 09:43 Dose: 1 mg Documented by: Sodium Chloride (Saline 0.9%) 1,000 mls @ 130 mls/hr IV .Q7H42M [facility] Last Admin: 06/30/21 02:47 Dose: 130 mls/hr Documented by: Amiodarone HCl 450 mg/ (Dextrose/Water) 250 mls @ 16.667 mls/hr IV .Q15H [facility]; Protocol Last Admin: 06/30/21 02:52 Dose: 0.5 mg/min, 16.667 mls/hr Documented by: Cefepime HCl 2 gm/ Sodium (Chloride) 100 mls @ 25 mls/hr IVPB Q8H [facility] Ipratropium Odonnell (Ipratropium 0.5 Mg/2.5 Ml Nebu) 0.5 mg INHALATION Q4H [facility] Last Admin: 06/30/21 11:49 Dose: 0.5 mg Documented by: Lactulose (Lactulose 20 Gm/30 Ml Cup) 20 gm PO DAILY PRN PRN Reason: Constipation Lorazepam (Lorazepam 0.5 Mg Tab) 0.5 mg PO Q6HR PRN PRN Reason: Anxiety Last Admin: 06/28/21 17:54 Dose: 0.5 mg Documented by: Melatonin (Melatonin 3 Mg Tablet) 3 mg PO HS PRN PRN Reason: Insomnia Metoprolol Tartrate (Metoprolol Tartrate 50 Mg Tab) 50 mg PO BID [facility] Last Admin: 06/30/21 09:43 Dose: 50 mg Documented by: Miscellaneous Information (Potassium Replacement Protocol 1 Each Misc) 1 each MISCELLANE DAILY PRN; Protocol PRN Reason: Per Protocol Miscellaneous Information (Magnesium Replacement Protocol 1 Each Misc) 1 each MISCELLANE DAILY PRN; Protocol PRN Reason: Per Protocol Multi-Ingred Cream/Lotion/Oil/Oint (Hydrophilic Cream 180 Gm Tube) 1 applic TOPICAL DAILY [facility]; Protocol Last Admin: 06/30/21 09:43 Dose: Not Given Documented by: Naloxone HCl (Naloxone 0.4 Mg/Ml 1 Ml Vial) 0.2 mg IV Q2M PRN PRN Reason: Opioid Reversal Ondansetron HCl (Ondansetron 4 Mg/2 Ml Vial) 4 mg IVP Q8HR PRN PRN Reason: Nausea And Vomiting Last Admin: 06/28/21 10:31 Dose: 4 mg Documented by: Pantoprazole Sodium (Pantoprazole 40 Mg Tablet) 40 mg PO DAILY [facility] Last Admin: 06/30/21 09:43 Dose: 40 mg Documented by: Prednisone (Prednisone 10 Mg Tab) 10 mg PO DAILY [facility] Last Admin: 06/30/21 09:43 Dose: 10 mg Documented by: Sodium Bicarbonate (Sodium Bicarbonate Tab 650 Mg Tab) 650 mg PO TID [facility] Last Admin: 06/30/21 09:43 Dose: 650 mg Documented by: Past medical history to include: Coronary artery disease with stent, COPD, stroke with some mild right-sided weakness, hyperlipidemia, hypertension, obstructive sleep apnea uses CPAP, TB 1985, hiatal hernia, sleeve gastrectomy in 2018, surgery for thoracic aortic aneurysm, 4 L of oxygen at home Social history: Started smoking age of 15 stopped in 2011. One pack a day. Alcohol occasionally. Lives with her grandson. Occasionally uses a cane or a walker. Family history: [place], pacemaker, COPD Physical examination: VITAL SIGNS: 98.9, 70, 19, 1 22 x 66, 91% on 15 L GENERAL: Propped up in bed, short of breath, Thora-vent:capped EYES: Pupils equal. Conjunctiva normal. HEENT: External appearance of nose and ears normal, oral cavity grossly normal. NECK: JVD not raised; masses not palpable. HEART: First and second heart sounds are normal; mild edema in the left lower extremity LUNGS: Respiratory rate increased, decreased breath sounds. Prolonged expiration. ABDOMEN: Soft, nontender, liver spleen not palpable, no masses palpable. PSYCH: Alert and oriented x3; mood and affect anxious NEUROLOGICAL: Cranial nerves grossly intact; no facial asymmetry, mild right hemiparesis INVESTIGATIONS, reviewed in the clinical context: June 30: White count 7.8 hemoglobin 12 platelets 149, sodium 126 potassium 4.2 creatinine 0.5 to 2-D echocardiogram: EF 50-55% June 28: White count 3.9 hemoglobin 13.1 platelets 126 sodium 135 potassium 3 when necessary 24 crit and 0.7 to White count 16.2 hemoglobin 14.9 platelets 212 d-dimer 23.3 sodium 137 potassium 3 BUN 28 creatinine 1.14 Troponin I 0.508 proBNP 688 Coronavirus [PCR] not detected EKG tracing personally reviewed by me-normal sinus rhythm. Flipped T waves. The anterolateral leads. PVC. Computed tomography scan of the chest: Aortic stent. Large pneumatocele is in the posterior right lung. Acute PE in the right middle and lower lobe arteries secondary intensity branches. Right lower lobe consolidation and/or mass. Chest x-ray film personally reviewed by me-right basilar infiltrate, aortic graft Assessment and plan: -Acute PE in the right middle and lower lobe arteries and secondary branches, IV heparin. Changed to eliquis. -Probable right basilar pneumonia suspected gram-negative organism IV cefepime -New onset atrial fibrillation with a rapid ventricular rate: unControlled IV amiodarone drip -IV heparin monitoring: Discontinued Follow PTT -Spontaneous pneumothorax: Improved Thora-vent, capped -Chronic hypoxic respiratory failure from COPD On home oxygen 4 -Acute hypoxic respiratory failure from PE: Not improving Oxygen supplementation. FiO2 15 liters -Acute severe COPD exacerbation in an ex-smoker-: Slow to respond on bronchodilators, inhaled steroids. Long-acting beta agonist. -Coronary artery disease with stent Lopressor, -Mild right hemiparesis from prior stroke -Hyperlipidemia, -Hypokalemia Replace potassium -Essential hypertension, amlodipine 10 mg daily, Lopressor 25 mg a day -Obstructive sleep apnea uses CPAP , continue the same -Hiatal hernia -History of sleeve gastrectomy -DO NOT RESUSCITATE IV cefepime. IV amiodarone. Bronchodilators. IV heparin discontinued. Started on eliquis. Continue supportive care. Care was discussed at length with the daughter the bedside. Prognosis guarded. DO NOT RESUSCITATE. Total time spent about 45 minutes with over 25 as of discussion..
[2021-06-30] MEDS ORDERED: RX INFO: IV CONTRAST WAS GIVEN 1 EACH MISC MISCELLANE PRN (15:04)
[2021-06-30] MEDS: DEXTROSE 5%-0.45% NACL 1,000 ML IV SCH (16:12)
[2021-06-30 17:57] LABS: Glucose,Whole Blood 112 mg/dL (75-99)
--- NOTE | 2021-06-30 18:05 | CT ---
EXAMINATION TYPE: CT chest w con DATE OF EXAM: 06/30/2021 COMPARISON: 06/27/2021 HISTORY: empyema CT DLP: 451 mGycm Automated exposure control for dose reduction was used. CONTRAST: Performed with IV Contrast, patient injected with 100 mL of Isovue 300. Images obtained from the thoracic inlet to the diaphragm with IV contrast. Thoracic aorta is atheromatous. There is stent in the descending thoracic aorta. Stent appears in goo d position. There is mild thrombus on the right lateral wall of the stent measuring up to 10 mm. Desc ending thoracic aortic aneurysm measures up to 6.5 cm in diameter. Heart size is fairly normal. There is no pericardial effusion. There is extensive airspace consolidation and atelectasis in both lower lobes and worse on the right side. There is right pleural effusion. There is small left pleural effus ion. There is no evidence of filling defect in the pulmonary arteries. There is no mediastinal adenop athy. There is descending aortic aneurysm extending beyond the graft on the right lateral wall. This measur es 2 cm in thickness with variable calcification. The bony thorax is intact. There is no compression fracture. Sternum is intact. There is small amount of soft tissue air over the anterior right upper chest in the subclavian region which could relate to catheterization. IMPRESSION: Compared to recent exam there is significant increased airspace consolidation in both lungs in the lo wer lobes. There is a stable aneurysm of the descending thoracic aorta on the right lateral wall. No definite evidence of a leak. There is chronic calcification in the thrombus on the right lateral wall . The endograft is in good position.
[2021-07-01] MEDS: IPRATROPIUM 0.5 MG/2.5 ML NEBU INHALATION SCH ×6 (00:58→21:49)
[2021-07-01] MEDS: CEFEPIME 2 GM in SODIUM CHLORIDE 0.9% 100 ML IVPB SCH ×3 (01:49→17:10)
[2021-07-01] MEDS: HYDROmorphone 1 MG/ML 1 ML SYRINGE IVP PRN ×3 (01:56→13:13)
[2021-07-01] MEDS: AMIODARONE 450 MG in DEXTROSE 5% IN WATER 250 ML IV SCH ×4 (05:28→17:11)
[2021-07-01] MEDS: DEXTROSE 5%-0.45% NACL 1,000 ML IV SCH ×2 (05:29→17:10)
[2021-07-01 06:08] LABS: Basophils % (A) 0 %; Eosinophils # (A) 0.1 k/uL (0-0.7); Eosinophils % (A) 1 %; HCT 37.5 % (34.0-46.0); HGB 12.2 gm/dL (11.4-16.0); Lymphocytes # (A) 0.5 k/uL (1.0-4.8); Lymphocytes % (A) 4 %; MCH 31.2 pg (25.0-35.0); MCHC 32.5 g/dL (31.0-37.0); MCV 96.1 fL (80.0-100.0); Mean Platelet Volume 8.2; Monocytes # (A) 0.5 k/uL (0-1.0); Monocytes % (A) 4 %; Neutrophils # (A) 11.2 k/uL (1.3-7.7); Neutrophils % (A) 90 %; Platelet Count 141 k/uL (150-450); RDW 13.5 % (11.5-15.5); WBC 12.5 k/uL (3.8-10.6)
[2021-07-01 06:23] LABS: ALT 12 U/L (4-34); AST 22 U/L (14-36); African American GFR (CKD) >90 (>60 ml/min/1.73 sqM); Albumin 2.1 g/dL (3.5-5.0); Alkaline Phosphatase 46 U/L (38-126); Anion Gap 4 mmol/L; Blood Urea Nitrogen 14 mg/dL (7-17); Calcium 7.9 mg/dL (8.4-10.2); Carbon Dioxide 22 mmol/L (22-30); Chloride 106 mmol/L (98-107); Glucose 96 mg/dL (74-99); Non-African American GFR(CKD) >90 (>60 ml/min/1.73 sqM); Potassium 3.4 mmol/L (3.5-5.1); Sodium 132 mmol/L (137-145); Total Bilirubin 0.4 mg/dL (0.2-1.3); Total Protein 4.3 g/dL (6.3-8.2)
--- NOTE | 2021-07-01 06:24 | P.PN ---
Subjective Progress Note Date: 07/01/21 Principal diagnosis: Pulmonary embolism/paroxysmal atrial fibrillation The patient is a pleasant 71-year-old female patient was admitted to the hospital with acute on chronic hypoxemic respiratory failure. That was multi- factorial and related to pneumothorax as well as pulmonary embolism complicated by atrial fibrillation with RVR which seems to be new diagnosis of the patient. The patient was seen this morning. She continues to be hypoxic on oxygen. Hemodynamically she is stable and not on any vasopressors at this point. She went into A. fib with RVR and subsequently converted to normal sinus mechanism. I'm going to increase the dose of metoprolol to 50 mg by mouth three times a day beach she is on oral anticoagulation which we'll continue. Objective - Vital Signs Vital signs: Vital Signs Temp 98 F 07/01/21 04:00 Pulse 84 07/01/21 06:00 Resp 19 07/01/21 06:00 BP 141/77 07/01/21 06:00 Pulse Ox 95 07/01/21 06:00 Intake & Output 06/30/21 06/30/21 07/01/21 06:59 18:59 06:59 Intake Total 535.664 105 7147 Output Total 262 116 6462 Balance -84.442 230 285 Weight 75 kg 80.5 kg Intake: IV 360 540 900 D5 0.45 NS 360 540 900 Intake, IV Titration 100.558 250 400 Amount Amiodarone 360 mg In 200 Dextrose 5% in Water 200 ml @ 1 MG/MIN 33.333 mls/ hr IV .Q6H [facility] Rx#: [id number] Amiodarone 450 mg In 100.558 250 Dextrose 5% in Water 250 ml @ 0.5 MG/MIN 16.667 mls/hr IV .Q15H [facility] Rx#: [id number] Cefepime 2 gm In Sodium 100 Chloride 0.9% 100 ml @ 25 mls/hr IVPB Q8H [facility] Rx#: [id number] Dextrose 5% in Water 100 100 ml @ 618 mls/hr IV .Q10M [facility] with Amiodarone 150 mg Rx#:[id number] Oral 75 50 Output: Chest Tube Drainage 25 0 Thora-Vent Right Mid- 25 0 Clavicular Chest Urine 427 388 7096 Other: Voiding Method Indwelling Catheter Indwelling Catheter Indwelling Catheter - Constitutional General appearance: Present: no acute distress - Respiratory Respiratory: bilateral: diminished, rales - Labs CBC & Chem 7: 07/01/21 05:49 06/30/21 11:53 Labs: Abnormal Lab Results - Last 24 Hours (Table) 06/30/21 07/01/21 Range/Units 17:55 05:49 WBC 12.5 H (3.8-10.6) k/uL Plt Count 141 L (150-450) k/uL Neutrophils # 11.2 H (1.3-7.7) k/uL Lymphocytes # 0.5 L (1.0-4.8) k/uL POC Glucose (mg/dL) 112 H (75-99) mg/dL Microbiology - Last 24 Hours (Table) 06/27/21 18:45 Blood Culture Gram Stain - Final Blood Blood Culture - Final Pseudomonas aeruginosa 06/27/21 19:00 Blood Culture Gram Stain - Final Blood Blood Culture - Final Pseudomonas aeruginosa Assessment and Plan Assessment: Assessment #1 acute hypoxic respiratory failure likely to be multi-factorial #2 pulmonary embolism seems to be non-massive #3 paroxysmal atrial fibrillation likely to be triggered by the pulmonary embolism #4 pneumothorax Plan #1 continue oral anticoagulation #2 increase the dose of metoprolol #3 continue amiodarone #4 follow-up with the patient
[2021-07-01] MEDS: POTASSIUM CHLORIDE ER 20 MEQ TAB.ER PO SCH ×2 (06:58→09:56)
--- NOTE | 2021-07-01 07:12 | XR ---
EXAMINATION TYPE: XR chest 1V portable DATE OF EXAM: 07/01/2021 COMPARISON: Chest x-ray 06/30/2021 HISTORY: Pneumothorax, abnormal chest x-ray TECHNIQUE: Single frontal view of the chest is obtained. FINDINGS: There is a stent graft in the aorta. The right-sided thoracic vent has been removed. Bibas ilar increased attenuation is present, there is thickening along the right lateral pleural margin. Th ere are overlying artifacts. Cardiomediastinal silhouette is stable. No residual pneumothorax. IMPRESSION: Correlate for pneumonia bilaterally. Difficult to exclude associated effusion.
[2021-07-01] MEDS: FORMOTEROL FUMARATE 20 MCG/2 ML NEBU INHALATION SCH ×2 (07:27→21:49)
[2021-07-01] MEDS: BUDESONIDE 1 MG/2 ML NEBU INHALATION SCH ×2 (07:27→21:49)
--- NOTE | 2021-07-01 08:45 | P.PN ---
Subjective Progress Note Date: 07/01/21 Principal diagnosis: Right-sided pneumothorax, acute pulmonary embolism in the right middle and lower pulmonary arteries, acute on chronic hypoxemic respiratory failure, new-onset rapid atrial fibrillation, leukocytosis present on admission, possible right lower lobe pneumonia. Previous medical history of severe COPD with home oxygen dependence, coronary artery disease with myocardial infarction and PCI, thoracic aortic aneurysm with endovascular repair, previous CVA with residual right-sided weakness, obstructive sleep apnea without home CPAP use, tuberculosis in 1985, obesity with previous sleeve gastrectomy, previous tobacco dependence, occasional marijuana use The patient was seen this morning in the intensive care unit in no acute distress. Her oxygen demands remain high, she continues to go in and out of A. fib RVR. Denies pain, does continue to complain of shortness of breath. Currently on 15 L high flow nasal cannula with oxygen saturation in the low 90s. Right-sided thoravent was discontinued yesterday. Chest x-ray and CT reviewed. Objective - Vital Signs Vital signs: Vital Signs Temp 98 F 07/01/21 04:00 Pulse 97 07/01/21 07:36 Resp 27 H 07/01/21 07:00 BP 145/88 07/01/21 07:00 Pulse Ox 93 L 07/01/21 07:43 Intake & Output 06/30/21 07/01/21 07/01/21 18:59 06:59 18:59 Intake Total 790 1350 75 Output Total 560 1065 50 Balance 230 285 25 Weight 80.5 kg Intake: IV 540 900 75 D5 0.45 NS 540 900 75 Intake, IV Titration 250 400 Amount Amiodarone 360 mg In 200 Dextrose 5% in Water 200 ml @ 1 MG/MIN 33.333 mls/ hr IV .Q6H [facility] Rx#: [id number] Amiodarone 450 mg In 250 Dextrose 5% in Water 250 ml @ 0.5 MG/MIN 16.667 mls/hr IV .Q15H [facility] Rx#: [id number] Cefepime 2 gm In Sodium 100 Chloride 0.9% 100 ml @ 25 mls/hr IVPB Q8H [facility] Rx#: [id number] Dextrose 5% in Water 100 100 ml @ 618 mls/hr IV .Q10M ONE with Amiodarone 150 mg Rx#:[id number] Oral 50 Output: Chest Tube Drainage 0 Thora-Vent Right Mid- 0 Clavicular Chest Urine 560 1065 50 Other: Voiding Method Indwelling Catheter Indwelling Catheter - Exam CONSTITUTIONAL: Sitting up in bed in the intensive care unit in no acute distress RESPIRATORY: Lungs sounds very diminished bilaterally. Respirations even, slightly labored. Currently on 15 L high flow nasal cannula with oxygen saturation low 90s. Weak cough CARDIOVASCULAR: S1, S2 present. Regular rate and rhythm, sinus rhythm on telemetry GASTROINTESTINAL: Abdomen soft, nontender, nondistended. Active bowel sounds present 4 quadrants. GENITOURINARY: Bowman present draining yellow urine INTEGUMENTARY: Skin is warm and dry NEUROLOGIC: Cranial nerves II through XII intact MUSKULOSKELETAL: Able to move all extremities, strength equal bilaterally PSYCHIATRIC: Alert and oriented to person place and time, appropriate affect, intact judgment and insight - Allied health notes Allied health notes reviewed: nursing - Labs CBC & Chem 7: 07/01/21 05:49 07/01/21 05:49 Labs: Abnormal Lab Results - Last 24 Hours (Table) 06/30/21 07/01/21 07/01/21 Range/Units 17:55 05:49 05:49 WBC 12.5 H (3.8-10.6) k/uL Plt Count 141 L (150-450) k/uL Neutrophils # 11.2 H (1.3-7.7) k/uL Lymphocytes # 0.5 L (1.0-4.8) k/uL Sodium 132 L (137-145) mmol/L Potassium 3.4 L (3.5-5.1) mmol/L Creatinine 0.51 L (0.52-1.04) mg/dL POC Glucose (mg/dL) 112 H (75-99) mg/dL Calcium 7.9 L (8.4-10.2) mg/dL Total Protein 4.3 L (6.3-8.2) g/dL Albumin 2.1 L (3.5-5.0) g/dL Microbiology - Last 24 Hours (Table) 06/27/21 18:45 Blood Culture Gram Stain - Final Blood Blood Culture - Final Pseudomonas aeruginosa 06/27/21 19:00 Blood Culture Gram Stain - Final Blood Blood Culture - Final Pseudomonas aeruginosa - Imaging and Cardiology Chest x-ray: report reviewed, image reviewed CT scan - chest: report reviewed, image reviewed Assessment and Plan Assessment: 1. Right-sided pneumothorax, status post thoravent placement by the emergency room physicians with reexpansion of the right lung 2. Acute pulmonary embolism in the right middle and lower pulmonary arteries 3. Acute on chronic hypoxemic respiratory failure 4. New-onset rapid atrial fibrillation 5. Leukocytosis present on admission, possible right lower lobe pneumonia 6. History of severe COPD with home oxygen dependence 7. History of coronary artery disease with myocardial infarction and PCI 8. History of thoracic aortic aneurysm with endovascular repair 9. Previous CVA with residual right-sided weakness 10. Obstructive sleep apnea without home CPAP use 11. Tuberculosis in 1985 12. Obesity with previous sleeve gastrectomy 13. Previous tobacco dependence 14. Occasional marijuana use Plan: 1. Thoravent discontinued yesterday, may remove dressing tomorrow 2. Will continue to monitor daily chest x-rays 3. Wean O2 as tolerated. Bronchodilators per pulmonology. Encourage incentive spirometry use 4. Increase activity as tolerated 5. Heart rhythm management per cardiology 6. Antibiotics per pulmonology 7. Medical management for the comorbidities per primary care service 8. Will continue to see on an as-needed basis. Please call us with any further questions Time with Patient: Greater than 30
[2021-07-01] MEDS: PANTOPRAZOLE 40 MG TABLET PO SCH (09:56)
[2021-07-01] MEDS: SODIUM BICARBONATE TAB 650 MG TAB PO SCH ×3 (09:56→21:18)
[2021-07-01] MEDS: APIXABAN 5 MG TAB PO SCH ×2 (09:56→21:17)
[2021-07-01] MEDS: METOPROLOL TARTRATE 50 MG TAB PO SCH ×3 (09:56→21:17)
[2021-07-01] MEDS: HYDROPHILIC CREAM 180 GM TUBE TOPICAL SCH (09:57)
[2021-07-01] MEDS: predniSONE 10 MG TAB PO SCH (09:57)
--- NOTE | 2021-07-01 13:19 | P.PN ---
Subjective Progress Note Date: 07/01/21 Principal diagnosis: Acute hypoxic respiratory failure, multifactorial. This is a 71-year-old female with history of severe COPD, O2 dependent, normally sees Dr. Holland on outpatient basis. Patient is also known to have history of underlying coronary artery disease, previous PCI back in 2016. History of endovascular aortic aneurysm repair, patient has chronic hypoxic referral failure maintained on oxygen at home. She presented to the ER yesterday with one month history of cough and shortness of breath. And her symptoms have become significantly worse. Patient was also developing some right vague chest discomfort. Seen in the ER, and CT angiogram of the chest showed evidence of right sided pulmonary embolism. Patient was started on heparin, and later on a follow-up chest x-ray showed evidence of large right-sided pneumothorax. Patient had a chest tube placed by the ER physician/jaylen about with complete reexpansion of the right lung, however continued to have some questionable inflammatory changes in the right lower lobe or atelectatic changes in the right lower lobe. Patient was seen by many consultants because she developed atrial fibrillation with RVR, cardiology saw the patient and recommended treatment with amiodarone. Patient was also seen by thoracic surgery for a right-sided pneumothorax. And presently the chest tube seems to be in the proper position, and the lung seems to be fully expanded. Patient is also on heparin for her atrial fibrillation is also for her acute pulmonary embolism. Labs today showed W Zbigniew of 3.9 hemoglobin 13.1 and platelets are 1 26,000 electrolytes showed low potassium of 3.0 and that being addressed accordingly. Troponin is 0.238 Reevaluated today on 06/29/2021, patient remains in the ICU, remains on heparin she is off IV amiodarone, patient has no air leak noted in the chest tube, she is still requiring 10 L high flow nasal cannula, O2 saturation remains marginal. Patient is being followed by many consultants. And I plan to discontinue her heparin and start the patient on Eliquis. Electrolytes are normal renal profile is normal PTT is therapeutic hemoglobin is 13.5 WBC count is 8.5 troponin is 0.238. Patient had positive blood cultures for Pseudomonas, hence she remains on cefepime at present. Her blood pressure is marginal, presently not requiring any pressors. Chest x-ray showed complete reexpansion of the right lung, right lower lobe consolidation is noted. Reevaluated today on 06/30/2021, patient remains in the ICU, she is presently on high flow nasal cannula, and O2 saturation is marginal at best. Her daughter is at bedside, and updated her daughter on her condition. Dr. Masters also discussed her condition with the daughter, initially her daughter was going to change her CODE STATUS from DO NOT RESUSCITATE to full code, but after discussing her status with us and with Dr. Masters, CODE STATUS remains DO NOT RESUSCITATE. In the meantime the patient is developing worsening pleural effusion on the right side, there is no evidence of pneumothorax, and the lung is fully expanded. Ultrasound of the chest is suggestive of a complicated right-sided pleural effusion with debris, I am a bit concerned about hemothorax in the right chest, I'm also concerned about the possibility of empyema. Patient did come in with pseudomonas bacteremia, and I would again be concerned about and empyema in the right pleural space. I am requesting pigtail catheter placement by interventional radiology hopefully it could be done today. Patient was on heparin which was discontinued yesterday, and she was started on Eliquis. She only received 1 dose last night and one dose today. WBC count today is 7.8 hemoglobin is 12. Sodium is 126 potassium 4.2 bicarb is 16 with anion gap of 15 BUN is 23 creatinine 0.52. Reevaluated today on 07/01/2021, patient remains in the ICU, she is on 10 L high flow nasal cannula, patient has marginal O2 saturations. She is on amiodarone now at 0.5 mg/m, she is on D5 45 at 75 mL per hour. Patient is on antibiotics for Pseudomonas bacteremia. She is receiving heparin for pulmonary embolism. She is receiving antibiotics for her underlying COPD. Yesterday discussed her ultrasound of the chest with the radiologist, and the initial report about a large pleural effusion has been amended by the radiologist, apparently there is no significant pleural effusion to consider pigtail catheter placement. Patient has mostly right lower lobe atelectasis and collapse right lower lobe. Labs today showed WBC12.5 hemoglobin is 12.2 lites are normal renal profile is normal Objective - Vital Signs Vital signs: Vital Signs Temp 98 F 07/01/21 04:00 Pulse 69 07/01/21 11:51 Resp 27 H 07/01/21 07:00 BP 145/88 07/01/21 07:00 Pulse Ox 93 L 07/01/21 07:43 Intake & Output 06/30/21 07/01/21 07/01/21 18:59 06:59 18:59 Intake Total 790 1350 75 Output Total 560 1065 50 Balance 230 285 25 Weight 80.5 kg Intake: IV 540 900 75 D5 0.45 NS 540 900 75 Intake, IV Titration 250 400 Amount Amiodarone 360 mg In 200 Dextrose 5% in Water 200 ml @ 1 MG/MIN 33.333 mls/ hr IV .Q6H [facility] Rx#: [id number] Amiodarone 450 mg In 250 Dextrose 5% in Water 250 ml @ 0.5 MG/MIN 16.667 mls/hr IV .Q15H [facility] Rx#: [id number] Cefepime 2 gm In Sodium 100 Chloride 0.9% 100 ml @ 25 mls/hr IVPB Q8H [facility] Rx#: [id number] Dextrose 5% in Water 100 100 ml @ 618 mls/hr IV .Q10M [facility] with Amiodarone 150 mg Rx#:[id number] Oral 50 Output: Chest Tube Drainage 0 Thora-Vent Right Mid- 0 Clavicular Chest Urine 560 1065 50 Other: Voiding Method Indwelling Catheter Indwelling Catheter - Exam Physical Exam revealed 71-year-old female on nasal cannula, she is actually on 10 L high flow nasal cannula, not in any Head: Atraumatic, normocephalic. HEENT:[Neck is supple.] [No neck masses.] [No thyromegaly.] [No JVD.] Chest: Diminished breath sounds at the right base. Cardiac Exam: Irregular irregular rhythm, 2/6 systolic murmur thought the precordium. No rubs, no gallops Abdomen: [Obese, Soft, nontender, no megaly, no rebound, no guarding, normal bowel sounds.] Extremities: [No clubbing, 1+ bipedal edema, no cyanosis.] Neurological Exam: [No focal neurologic deficit.] Alert and oriented 3. Psychiatric: Normal mood affect and normal mental status examination. - Labs CBC & Chem 7: 07/01/21 05:49 07/01/21 05:49 Labs: Abnormal Lab Results - Last 24 Hours (Table) 06/30/21 07/01/2107/01/21 Range/Units 17:55 05:49 05:49 WBC 12.5 H (3.8-10.6) k/uL Plt Count 141 L (150-450) k/uL Neutrophils # 11.2 H (1.3-7.7) k/uL Lymphocytes # 0.5 L (1.0-4.8) k/uL Sodium 132 L (137-145) mmol/L Potassium 3.4 L (3.5-5.1) mmol/L Creatinine 0.51 L (0.52-1.04) mg/dL POC Glucose (mg/dL) 112 H (75-99) mg/dL Calcium 7.9 L (8.4-10.2) mg/dL Total Protein 4.3 L (6.3-8.2) g/dL Albumin 2.1 L (3.5-5.0) g/dL Microbiology - Last 24 Hours (Table) 06/27/21 18:45 Blood Culture Gram Stain - Final Blood Blood Culture - Final Pseudomonas aeruginosa 06/27/21 19:00 Blood Culture Gram Stain - Final Blood Blood Culture - Final Pseudomonas aeruginosa Assessment and Plan Assessment: Impression: Acute on chronic hypoxic respiratory failure, multifactorial. Acute sepsis and bacteremia secondary to pseudomonas aeruginosa. Acute pulmonary embolism without ventricular strain. Acute spontaneous right-sided pneumothorax. Acute exacerbation of COPD. Possible right lower lobe pneumonia/community-acquired pneumonia. New-onset atrial fibrillation. History of underlying coronary artery disease. History of endovascular aortic repair. Right lower lobe collapse, no evidence of pleural effusion based on amended report by the radiologist regarding her ultrasound Recommendation: Continue antibiotics/cefepime. Continue to monitor in the ICU. Continue present supportive care measures. Continue bronchodilators Continue Eliquis, patient is off heparin for now. Titrate oxygen accordingly. Patient is normally on home oxygen. Overall prognosis is extremely poor and guarded. We will continue to follow. CODE STATUS is DO NOT RESUSCITATE. Time with Patient: Less than 30
[2021-07-01] MEDS: LORazepam 0.5 MG TAB PO PRN ×2 (14:46→21:18)
--- NOTE | 2021-07-01 16:12 | P.PN ---
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 Chronic stable medical conditions include coronary artery disease with stent, some mild right-sided weakness from prior stroke, hypertension, hyperlipidemia, obstructive sleep apnea uses CPAP machine, TB in 1985, hiatal hernia, surgery for thoracic aortic aneurysm, sleeve gastrectomy [place] [address] Hamilton. Home oxygen 4 L Patient presented to the ER with some right-sided and right posterior pain. Worse with deep breathing. No trauma. More short of breath than baseline. No fever and chills. Some baseline cough. Appetite is fair.. Patient found to be in the ER started on IV heparin. Pulmonary was consulted. Patient's grandson at the bedside. Patient is vaccinated for COVID 19. July 08: ICU: Last night patient developed right-sided pneumothorax in the ER. Thora-vent was placed. Followed by chest tube. Patient moved to the ICU. Went to A. fib with rapid ventricular rate. Today started IV amiodarone. Remains on IV heparin. Patient's grandson and his mother at the bedside. Short of breath. Tired. June 29: ICU: Thora-vent.. Short of breath. A. fib with rapid ventricular rate. Back on IV amiodarone. Had been held. Tired. Taking small amounts. ensure ordered. FiO2 increased to 15 L June 30: ICU: Thora-vent is capped. Short of breath. Patient yesterday went back in sinus rhythm. Then back into A. fib with rapid ventricular rate. Put back on IV amiodarone. Patient's daughter was out of town at the bedside. She had talked to the patient and felt the patient was not sure about the CODE STATUS. So we will going to revert the patient to full code. I did ask her to discuss with the patient and let us know. No refills DO NOT RESUSCITATE will be appropriate but he wanted the patient and the daughter decided. Later the patient came back and informed be that she discussed with the patient again and patient was to remain DO NOT RESUSCITATE. Decreased oral intake. On 15 L of oxygen. Started on eliquis. IV heparin discontinued. July 01: ICU: Thora-vent capped. A bit less short of breath. Eating little. In sinus rhythm. IV amiodarone drip. Her daughter the bedside. Ensure ordered Review of systems: Was done for constitutional, cardiovascular, GI, pulmonary. relevant finding as above Active Medications Acetaminophen (Acetaminophen Tab 325 Mg Tab) 650 mg PO Q6HR PRN PRN Reason: Mild Pain or Fever > 100.5 Last Admin: 06/28/21 17:30 Dose: 650 mg Documented by: Al Hydroxide/Mg Hydroxide (Mag Hydrox/Al Hydrox/Simeth 30 Ml Cup) 15 ml PO Q6HR PRN PRN Reason: Indigestion Albuterol Sulfate (Albuterol Nebulized 2.5 Mg/3 Ml) 2.5 mg INHALATION RT-QID PRN PRN Reason: Shortness Of Breath Apixaban (Apixaban 5 Mg Tab) 10 mg PO BID [facility]; Protocol Stop: 07/05/21 12:29 Last Admin: 07/01/21 09:56 Dose: 10 mg Documented by: Budesonide (Budesonide 1 Mg/2 Ml Nebu) 1 mg INHALATION RT-BID [facility] Last Admin: 07/01/21 07:27 Dose: Not Given Documented by: Calcium Carbonate/Glycine (Calcium Carbonate 500 Mg Chewable) 1,000 mg PO Q4HR PRN PRN Reason: Dyspepsia Formoterol Fumarate (Formoterol Fumarate 20 Mcg/2 Ml Nebu) 20 mcg INHALATION RT-BID [facility] Last Admin: 07/01/21 07:27 Dose: Not Given Documented by: Hydromorphone HCl (Hydromorphone 1 Mg/Ml 1 Ml Syringe) 1 mg IVP Q3HR PRN PRN Reason: Pain Last Admin: 07/01/21 13:13 Dose: 1 mg Documented by: Amiodarone HCl 450 mg/ (Dextrose/Water) 250 mls @ 16.667 mls/hr IV .Q15H [facility]; Protocol Last Admin: 07/01/21 05:28 Dose: 0.5 mg/min, 16.667 mls/hr Documented by: Cefepime HCl 2 gm/ Sodium (Chloride) 100 mls @ 25 mls/hr IVPB Q8H [facility] Last Admin: 07/01/21 09:57 Dose: 25 mls/hr Documented by: Dextrose/Sodium Chloride (Dextrose 5%-1/2ns Iv Soln) 1,000 mls @ 75 mls/hr IV .[id number] [facility] Last Admin: 07/01/21 05:29 Dose: 75 mls/hr Documented by: Ipratropium [place] (Ipratropium 0.5 Mg/2.5 Ml Nebu) 0.5 mg INHALATION Q4H [facility] Last Admin: 07/01/21 11:41 Dose: 0.5 mg Documented by: Lactulose (Lactulose 20 Gm/30 Ml Cup) 20 gm PO DAILY PRN PRN Reason: Constipation Lorazepam (Lorazepam 0.5 Mg Tab) 0.5 mg PO Q6HR PRN PRN Reason: Anxiety Last Admin: 07/01/21 14:46 Dose: 0.5 mg Documented by: Melatonin (Melatonin 3 Mg Tablet) 3 mg PO HS PRN PRN Reason: Insomnia Metoprolol Tartrate (Metoprolol Tartrate 50 Mg Tab) 50 mg PO TID [facility] Last Admin: 07/01/21 09:56 Dose: 50 mg Documented by: Miscellaneous Information (Potassium Replacement Protocol 1 Each Misc) 1 each MISCELLANE DAILY PRN; Protocol PRN Reason: Per Protocol Miscellaneous Information (Magnesium Replacement Protocol 1 Each Misc) 1 each MISCELLANE DAILY PRN; Protocol PRN Reason: Per Protocol Miscellaneous Information (Rx Info: Iv Contrast Was Given 1 Each Misc) 1 each MISCELLANE DAILY PRN PRN Reason: Per Protocol Stop: 07/02/21 15:05 Multi-Ingred Cream/Lotion/Oil/Oint (Hydrophilic Cream 180 Gm Tube) 1 applic TOPICAL DAILY [facility]; Protocol Last Admin: 07/01/21 09:57 Dose: 1 applic Documented by: Naloxone HCl (Naloxone 0.4 Mg/Ml 1 Ml Vial) 0.2 mg IV Q2M PRN PRN Reason: Opioid Reversal Ondansetron HCl (Ondansetron 4 Mg/2 Ml Vial) 4 mg IVP Q8HR PRN PRN Reason: Nausea And Vomiting Last Admin: 06/28/21 10:31 Dose: 4 mg Documented by: Pantoprazole Sodium (Pantoprazole 40 Mg Tablet) 40 mg PO DAILY [facility] Last Admin: 07/01/21 09:56 Dose: 40 mg Documented by: Prednisone (Prednisone 10 Mg Tab) 10 mg PO DAILY [facility] Last Admin: 07/01/21 09:57 Dose: 10 mg Documented by: Sodium Bicarbonate (Sodium Bicarbonate Tab 650 Mg Tab) 650 mg PO TID [facility] Last Admin: 07/01/21 09:56 Dose: 650 mg Documented by: Past medical history to include: Coronary artery disease with stent, COPD, stroke with some mild right-sided weakness, hyperlipidemia, hypertension, obstructive sleep apnea uses CPAP, TB 1985, hiatal hernia, sleeve gastrectomy in 2018, surgery for thoracic aortic aneurysm, 4 L of oxygen at home Social history: Started smoking age of 15 stopped in 2011. One pack a day. Alcohol occasionally. Lives with her grandson. Occasionally uses a cane or a walker. Family history: GA, pacemaker, COPD Physical examination: VITAL SIGNS: Afebrile, 79, 25, 112 x 62, 95% on 15 L GENERAL: Propped up in bed, less-short of breath, Thora-vent:capped EYES: Pupils equal. Conjunctiva normal. HEENT: External appearance of nose and ears normal, oral cavity grossly normal. NECK: JVD not raised; masses not palpable. HEART: First and second heart sounds are normal; mild edema in the left lower extremity LUNGS: Respiratory rate increased, decreased breath sounds. Prolonged expiration. ABDOMEN: Soft, nontender, liver spleen not palpable, no masses palpable. PSYCH: Alert and oriented x3; mood and affect less-anxious NEUROLOGICAL: Cranial nerves grossly intact; no facial asymmetry, mild right hemiparesis INVESTIGATIONS, reviewed in the clinical context: July 01: White count 12.5 hemoglobin 12.2 potassium 3.4 creatinine 0.51 June 30: White count 7.8 hemoglobin 12 platelets 149, sodium 126 potassium 4.2 creatinine 0.5 to 2-D echocardiogram: EF 50-55% June 28: White count 3.9 hemoglobin 13.1 platelets 126 sodium 135 potassium 3 when necessary 24 crit and 0.7 to White count 16.2 hemoglobin 14.9 platelets 212 d-dimer 23.3 sodium 137 potassium 3 BUN 28 creatinine 1.14 Troponin I 0.508 proBNP 688 Coronavirus [PCR] not detected EKG tracing personally reviewed by me-normal sinus rhythm. Flipped T waves. The anterolateral leads. PVC. Computed tomography scan of the chest: Aortic stent. Large pneumatocele is in the posterior right lung. Acute PE in the right middle and lower lobe arteries secondary intensity branches. Right lower lobe consolidation and/or mass. Chest x-ray film personally reviewed by me-right basilar infiltrate, aortic graft Assessment and plan: -Acute PE in the right middle and lower lobe arteries and secondary branches, IV heparin. Changed to eliquis. -Probable right basilar pneumonia suspected gram-negative organism IV cefepime -New onset atrial fibrillation with a rapid ventricular rate: Currently sinus rhythm IV amiodarone drip -IV heparin monitoring: Discontinued Follow PTT -Spontaneous pneumothorax: Improved Thora-vent, capped -Chronic hypoxic respiratory failure from COPD On home oxygen 4 -Acute hypoxic respiratory failure from PE: Not improving Oxygen supplementation. FiO2 15 liters -Acute severe COPD exacerbation in an ex-smoker-: Slow to respond on bronchodilators, inhaled steroids. Long-acting beta agonist. -Coronary artery disease with stent Lopressor, -Mild right hemiparesis from prior stroke -Hyperlipidemia, -Hypokalemia Replace potassium -Essential hypertension, amlodipine 10 mg daily, Lopressor 25 mg a day -Obstructive sleep apnea uses CPAP , continue the same -Hiatal hernia -History of sleeve gastrectomy -DO NOT RESUSCITATE IV cefepime. IV amiodarone. Bronchodilators. eliquis. Continue supportive care. Care was discussed with the daughter the bedside. Ensure 3 times a day.
[2021-07-01] MEDS ORDERED: POTASSIUM CHLORIDE ER 20 MEQ TAB.ER PO SCH (21:00)
[2021-07-02] MEDS: IPRATROPIUM 0.5 MG/2.5 ML NEBU INHALATION SCH ×7 (00:39→23:36)
[2021-07-02] MEDS ORDERED: FUROSEMIDE 10 MG/ML 4 ML VIAL IV STA (00:56)
[2021-07-02] MEDS: CEFEPIME 2 GM in SODIUM CHLORIDE 0.9% 100 ML IVPB SCH ×3 (01:07→18:50)
[2021-07-02 03:26] LABS: Basophils # (A) 0.1 k/uL (0-0.2); Basophils % (A) 0 %; Eosinophils # (A) 0.1 k/uL (0-0.7); Eosinophils % (A) 1 %; HCT 41.6 % (34.0-46.0); HGB 13.2 gm/dL (11.4-16.0); Hypochromasia Slight; Lymphocytes # (A) 0.8 k/uL (1.0-4.8); Lymphocytes % (A) 4 %; MCH 30.8 pg (25.0-35.0); MCHC 31.8 g/dL (31.0-37.0); MCV 96.9 fL (80.0-100.0); Mean Platelet Volume 9.1; Monocytes # (A) 0.8 k/uL (0-1.0); Monocytes % (A) 4 %; Neutrophils # (A) 17.2 k/uL (1.3-7.7); Neutrophils % (A) 90 %; Platelet Count 148 k/uL (150-450); RBC 4.29 m/uL (3.80-5.40); RDW 13.5 % (11.5-15.5); WBC 19.2 k/uL (3.8-10.6)
[2021-07-02 03:41] LABS: Chloride 102 mmol/L (98-107)
[2021-07-02 03:43] LABS: ALT 14 U/L (4-34); AST 28 U/L (14-36); African American GFR (CKD) >90 (>60 ml/min/1.73 sqM); Albumin 2.5 g/dL (3.5-5.0); Alkaline Phosphatase 42 U/L (38-126); Anion Gap 9 mmol/L; Blood Urea Nitrogen 13 mg/dL (7-17); Calcium 8.5 mg/dL (8.4-10.2); Carbon Dioxide 21 mmol/L (22-30); Glucose 103 mg/dL (74-99); Non-African American GFR(CKD) >90 (>60 ml/min/1.73 sqM); Potassium 3.7 mmol/L (3.5-5.1); Sodium 132 mmol/L (137-145); Total Bilirubin 0.9 mg/dL (0.2-1.3)
[2021-07-02] MEDS: HYDROmorphone 1 MG/ML 1 ML SYRINGE IVP PRN ×2 (03:50→10:39)
[2021-07-02] MEDS: DEXTROSE 5%-0.45% NACL 1,000 ML IV SCH ×2 (05:17→19:51)
[2021-07-02] MEDS: POTASSIUM CHLORIDE 10 MEQ in WATER FOR INJECTION 1 100ML.BAG IVPB SCH ×2 (05:38→06:34)
--- NOTE | 2021-07-02 06:14 | XR ---
EXAMINATION TYPE: XR chest 1V portable DATE OF EXAM: 07/02/2021 5:22 AM COMPARISON:Multiple radiographs, with the most recent on 07/01/2021. CLINICAL INDICATION:Female, 71 years old with history of Congestion; TECHNIQUE: Frontal view of the chest. FINDINGS: Lungs/Pleura: Improved aeration of the right lung with persistent scattered airspace opacities. Slig htly increased airspace opacities changes within the left lung base. Blunting of the costophrenic ang les is seen on prior. No evidence of pneumothorax. Pulmonary vascularity: Unremarkable. Heart/mediastinum: Cardiomediastinal silhouette is unremarkable. Musculoskeletal: No acute osseous pathology. Other findings: Upper quadrant cholecystectomy clips are present. Cardiac stent graft noted. IMPRESSION: 1. Improved aeration of the right lung with persistent airspace disease. 2. Increased consolidation in the left lung base represent combination of airspace disease and pleura l effusion with associated atelectasis. 3. Small right pleural effusion.
[2021-07-02] MEDS: BUDESONIDE 1 MG/2 ML NEBU INHALATION SCH ×2 (07:49→19:37)
[2021-07-02] MEDS: FORMOTEROL FUMARATE 20 MCG/2 ML NEBU INHALATION SCH ×2 (07:49→19:51)
[2021-07-02] MEDS: APIXABAN 5 MG TAB PO SCH ×2 (09:31→21:02)
[2021-07-02] MEDS: AMIODARONE 200 MG TAB PO SCH ×2 (09:31→21:02)
[2021-07-02] MEDS: SODIUM BICARBONATE TAB 650 MG TAB PO SCH ×3 (09:31→21:02)
[2021-07-02] MEDS: METOPROLOL TARTRATE 50 MG TAB PO SCH ×3 (09:31→21:02)
[2021-07-02] MEDS: PANTOPRAZOLE 40 MG TABLET PO SCH (09:31)
[2021-07-02] MEDS: HYDROPHILIC CREAM 180 GM TUBE TOPICAL SCH (09:32)
[2021-07-02] MEDS: AMIODARONE 450 MG in DEXTROSE 5% IN WATER 250 ML IV SCH ×2 (09:32)
[2021-07-02] MEDS: predniSONE 10 MG TAB PO SCH (09:32)
[2021-07-02] MEDS: methylPREDNISolone SOD SUCCI 40 MG/ML 1 ML VIAL IV SCH ×3 (10:39→23:46)
--- NOTE | 2021-07-02 11:16 | P.PN ---
Subjective Progress Note Date: 07/02/21 Principal diagnosis: Pulmonary embolism/paroxysmal atrial fibrillation The patient is a pleasant 71-year-old female patient was admitted to the hospital with acute on chronic hypoxemic respiratory failure. That was multi- factorial and related to pneumothorax as well as pulmonary embolism complicated by atrial fibrillation with RVR which seems to be new diagnosis of the patient. She has been maintaining normal sinus mechanism. She continues to be on high flow oxygen. Hemodynamically she is stable. The dose of metoprolol was increased yesterday and she is on amiodarone IV which way to stop and switch her to amiodarone by mouth rate she is on anticoagulation for the pulmonary embolism as well as atrial fibrillation. The echo did not show any evidence of RV strain. Objective - Vital Signs Vital signs: Vital Signs Temp 98.3 F 07/02/21 08:00 Pulse 84 07/02/21 09:00 Resp 25 H 07/02/21 09:00 BP 130/72 07/02/21 09:00 Pulse Ox 99 07/02/21 09:00 Intake & Output 07/01/21 07/02/21 07/02/21 18:59 06:59 18:59 Intake Total 1370.282 490 20 Output Total 545 1905 40 Balance 825.282 -1415 -20 Weight 82 kg Intake: IV 1175 440 20 Cefepime 2 gm In Sodium 200 Chloride 0.9% 100 ml @ 25 mls/hr IVPB Q8H BRE Rx#: [id number] D5 0.45 NS 975 440 20 Intake, IV Titration 195.282 Amount Amiodarone 450 mg In 195.282 Dextrose 5% in Water 250 ml @ 0.5 MG/MIN 16.667 mls/hr IV .Q15H BRE Rx#: [id number] Oral 50 Output: Urine 545 1905 40 Other: Voiding Method Indwelling Catheter Indwelling Catheter - Constitutional General appearance: Present: no acute distress - Respiratory Respiratory: bilateral: diminished - Cardiovascular Rhythm: regular - Labs CBC & Chem 7: 07/02/21 02:47 07/02/21 02:47 Labs: Abnormal Lab Results - Last 24 Hours (Table) 07/02/21 07/02/21 Range/Units 02:47 02:47 WBC 19.2 H (3.8-10.6) k/uL Plt Count 148 L (150-450) k/uL Neutrophils # 17.2 H (1.3-7.7) k/uL Lymphocytes # 0.8 L (1.0-4.8) k/uL Sodium 132 L (137-145) mmol/L Carbon Dioxide 21 L (22-30) mmol/L Creatinine 0.39 L (0.52-1.04) mg/dL Glucose 103 H (74-99) mg/dL Total Protein 5.0 L (6.3-8.2) g/dL Albumin 2.5 L (3.5-5.0) g/dL Assessment and Plan Assessment: Assessment #1 acute hypoxic respiratory failure likely to be multi-factorial #2 pulmonary embolism seems to be non-massive #3 paroxysmal atrial fibrillation likely to be triggered by the pulmonary embolism #4 pneumothorax Plan #1 continue oral anticoagulation #2 DC amiodarone IV and start the patient on amiodarone by mouth #3 continue the current dose of metoprolol #4 follow-up with the patient
--- NOTE | 2021-07-02 12:30 | P.PN ---
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 Chronic stable medical conditions include coronary artery disease with stent, some mild right-sided weakness from prior stroke, hypertension, hyperlipidemia, obstructive sleep apnea uses CPAP machine, TB in 1985, hiatal hernia, surgery for thoracic aortic aneurysm, sleeve gastrectomy [place] [address] Hamilton. Home oxygen 4 L Patient presented to the ER with some right-sided and right posterior pain. Worse with deep breathing. No trauma. More short of breath than baseline. No fever and chills. Some baseline cough. Appetite is fair.. Patient found to be in the ER started on IV heparin. Pulmonary was consulted. Patient's grandson at the bedside. Patient is vaccinated for COVID 19. July 08: ICU: Last night patient developed right-sided pneumothorax in the ER. Thora-vent was placed. Followed by chest tube. Patient moved to the ICU. Went to A. fib with rapid ventricular rate. Today started IV amiodarone. Remains on IV heparin. Patient's grandson and his mother at the bedside. Short of breath. Tired. June 29: ICU: Thora-vent.. Short of breath. A. fib with rapid ventricular rate. Back on IV amiodarone. Had been held. Tired. Taking small amounts. ensure ordered. FiO2 increased to 15 L June 30: ICU: Thora-vent is capped. Short of breath. Patient yesterday went back in sinus rhythm. Then back into A. fib with rapid ventricular rate. Put back on IV amiodarone. Patient's daughter was out of town at the bedside. She had talked to the patient and felt the patient was not sure about the CODE STATUS. So we will going to revert the patient to full code. I did ask her to discuss with the patient and let us know. No refills DO NOT RESUSCITATE will be appropriate but he wanted the patient and the daughter decided. Later the patient came back and informed be that she discussed with the patient again and patient was to remain DO NOT RESUSCITATE. Decreased oral intake. On 15 L of oxygen. Started on eliquis. IV heparin discontinued. July 01: ICU: Thora-vent capped. A bit less short of breath. Eating little. In sinus rhythm. IV amiodarone drip. Her daughter the bedside. Ensure ordered July 02: ICU: Thora-vent remains. Remains on 15 L of nasal cannula. Tired. Daughter the bedside. Eating small amounts. Including some Ensure. Remains in sinus rhythm. IV amiodarone changed over to by mouth amiodarone. Tired Review of systems: Was done for constitutional, cardiovascular, GI, pulmonary. relevant finding as above Active Medications Acetaminophen (Acetaminophen Tab 325 Mg Tab) 650 mg PO Q6HR PRN PRN Reason: Mild Pain or Fever > 100.5 Last Admin: 06/28/21 17:30 Dose: 650 mg Documented by: Al Hydroxide/Mg Hydroxide (Mag Hydrox/Al Hydrox/Simeth 30 Ml Cup) 15 ml PO Q6HR PRN PRN Reason: Indigestion Albuterol Sulfate (Albuterol Nebulized 2.5 Mg/3 Ml) 2.5 mg INHALATION RT-QID PRN PRN Reason: Shortness Of Breath Amiodarone HCl (Amiodarone 200 Mg Tab) 400 mg PO BID [facility] Last Admin: 07/02/21 09:31 Dose: 400 mg Documented by: Apixaban (Apixaban 5 Mg Tab) 10 mg PO BID [facility]; Protocol Stop: 07/05/21 12:29 Last Admin: 07/02/21 09:31 Dose: 10 mg Documented by: Budesonide (Budesonide 1 Mg/2 Ml Nebu) 1 mg INHALATION RT-BID [facility] Last Admin: 07/02/21 07:49 Dose: 1 mg Documented by: Calcium Carbonate/Glycine (Calcium Carbonate 500 Mg Chewable) 1,000 mg PO Q4HR PRN PRN Reason: Dyspepsia Formoterol Fumarate (Formoterol Fumarate 20 Mcg/2 Ml Nebu) 20 mcg INHALATION RT-BID [facility] Last Admin: 07/02/21 07:49 Dose: 20 mcg Documented by: Furosemide (Furosemide 10 Mg/Ml 2 Ml Vial) 20 mg IV Q8HR BRE Hydromorphone HCl (Hydromorphone 1 Mg/Ml 1 Ml Syringe) 1 mg IVP Q3HR PRN PRN Reason: Pain Last Admin: 07/02/21 10:39 Dose: 1 mg Documented by: Cefepime HCl 2 gm/ Sodium (Chloride) 100 mls @ 25 mls/hr IVPB Q8H BRE Last Admin: 07/02/21 09:31 Dose: 25 mls/hr Documented by: Dextrose/Sodium Chloride (Dextrose 5%-1/2ns Iv Soln) 1,000 mls @ 75 mls/hr IV .[id number] [facility] Last Admin: 07/02/21 05:17 Dose: 75 mls/hr Documented by: Ipratropium [place] (Ipratropium 0.5 Mg/2.5 Ml Nebu) 0.5 mg INHALATION Q4H [facility] Last Admin: 07/02/21 11:33 Dose: 0.5 mg Documented by: Lactulose (Lactulose 20 Gm/30 Ml Cup) 20 gm PO DAILY PRN PRN Reason: Constipation Lorazepam (Lorazepam 0.5 Mg Tab) 0.5 mg PO Q6HR PRN PRN Reason: Anxiety Last Admin: 07/01/21 21:18 Dose: 0.5 mg Documented by: Melatonin (Melatonin 3 Mg Tablet) 3 mg PO HS PRN PRN Reason: Insomnia Methylprednisolone Sodium Succinate (Methylprednisolone Sod Succi 40 Mg/Ml 1 Ml Vial) 40 mg IV Q8HR [facility] Last Admin: 07/02/21 10:39 Dose: 40 mg Documented by: Metoprolol Tartrate (Metoprolol Tartrate 50 Mg Tab) 50 mg PO TID [facility] Last Admin: 07/02/21 09:31 Dose: 50 mg Documented by: Miscellaneous Information (Potassium Replacement Protocol 1 Each Misc) 1 each MISCELLANE DAILY PRN; Protocol PRN Reason: Per Protocol Miscellaneous Information (Magnesium Replacement Protocol 1 Each Misc) 1 each MISCELLANE DAILY PRN; Protocol PRN Reason: Per Protocol Miscellaneous Information (Rx Info: Iv Contrast Was Given 1 Each Misc) 1 each MISCELLANE DAILY PRN PRN Reason: Per Protocol Stop: 07/02/21 15:05 Multi-Ingred Cream/Lotion/Oil/Oint (Hydrophilic Cream 180 Gm Tube) 1 applic TOPICAL DAILY [facility]; Protocol Last Admin: 07/02/21 09:32 Dose: 1 applic Documented by: Naloxone HCl (Naloxone 0.4 Mg/Ml 1 Ml Vial) 0.2 mg IV Q2M PRN PRN Reason: Opioid Reversal Ondansetron HCl (Ondansetron 4 Mg/2 Ml Vial) 4 mg IVP Q8HR PRN PRN Reason: Nausea And Vomiting Last Admin: 06/28/21 10:31 Dose: 4 mg Documented by: Pantoprazole Sodium (Pantoprazole 40 Mg Tablet) 40 mg PO DAILY [facility] Last Admin: 07/02/21 09:31 Dose: 40 mg Documented by: Sodium Bicarbonate (Sodium Bicarbonate Tab 650 Mg Tab) 650 mg PO TID [facility] Last Admin: 07/02/21 09:31 Dose: 650 mg Documented by: Past medical history to include: Coronary artery disease with stent, COPD, stroke with some mild right-sided weakness, hyperlipidemia, hypertension, obstructive sleep apnea uses CPAP, TB 1985, hiatal hernia, sleeve gastrectomy in 2018, surgery for thoracic aortic aneurysm, 4 L of oxygen at home Social history: Started smoking age of 15 stopped in 2011. One pack a day. Alcohol occasionally. Lives with her grandson. Occasionally uses a cane or a walker. Family history: [place], pacemaker, COPD Physical examination: VITAL SIGNS: 98.3, 87, 22, 105/88, 99% on 15 L nasal cannula GENERAL: Propped up in bed, short of breath, Thora-vent:capped EYES: Pupils equal. Conjunctiva normal. HEENT: External appearance of nose and ears normal, oral cavity grossly normal. NECK: JVD not raised; masses not palpable. HEART: First and second heart sounds are normal; mild edema in the left lower extremity LUNGS: Respiratory rate increased, decreased breath sounds. Prolonged expiration. ABDOMEN: Soft, nontender, liver spleen not palpable, no masses palpable. PSYCH: Alert and oriented x3; mood and affect mild NEUROLOGICAL: Cranial nerves grossly intact; no facial asymmetry, mild right hemiparesis INVESTIGATIONS, reviewed in the clinical context: July 02: WBC 19.2 hemoglobin 13.2 sodium 132 potassium 3.7 creatinine 0.39 July 01: White count 12.5 hemoglobin 12.2 potassium 3.4 creatinine 0.51 June 30: White count 7.8 hemoglobin 12 platelets 149, sodium 126 potassium 4.2 creatinine 0.5 to 2-D echocardiogram: EF 50-55% June 28: White count 3.9 hemoglobin 13.1 platelets 126 sodium 135 potassium 3 when necessary 24 crit and 0.7 to White count 16.2 hemoglobin 14.9 platelets 212 d-dimer 23.3 sodium 137 potassium 3 BUN 28 creatinine 1.14 Troponin I 0.508 proBNP 688 Coronavirus [PCR] not detected EKG tracing personally reviewed by me-normal sinus rhythm. Flipped T waves. The anterolateral leads. PVC. Computed tomography scan of the chest: Aortic stent. Large pneumatocele is in the posterior right lung. Acute PE in the right middle and lower lobe arteries secondary intensity branches. Right lower lobe consolidation and/or mass. Chest x-ray film personally reviewed by me-right basilar infiltrate, aortic graft Assessment and plan: -Acute PE in the right middle and lower lobe arteries and secondary branches, IV heparin. Changed to eliquis. -Probable right basilar pneumonia suspected gram-negative organism IV cefepime -Paroxysmal atrial fibrillation with a rapid ventricular rate upon presentation: Currently sinus rhythm IV amiodarone drip. Changed to by mouth amiodarone -IV heparin monitoring: Discontinued Follow PTT -Spontaneous pneumothorax: Improved Thora-vent, capped -Chronic hypoxic respiratory failure from COPD On home oxygen 4 -Acute hypoxic respiratory failure from PE: Not improving Oxygen supplementation. FiO2 15 liters -Acute severe COPD exacerbation in an ex-smoker-: Slow to respond on bronchodilators, inhaled steroids. Long-acting beta agonist. -Coronary artery disease with stent Lopressor, -Mild right hemiparesis from prior stroke -Hyperlipidemia, -Hypokalemia Replace potassium -Hyponatremia Encourage oral intake -Essential hypertension, amlodipine 10 mg daily, Lopressor 25 mg a day -Obstructive sleep apnea uses CPAP , continue the same -Hiatal hernia -History of sleeve gastrectomy -DO NOT RESUSCITATE IV cefepime. IV amiodarone-changed to by mouth amiodarone. Bronchodilators. eliquis. Care was discussed with the daughter the bedside.
[2021-07-02 13:12] LABS: Magnesium 1.7 mg/dL (1.6-2.3)
[2021-07-02 13:13] LABS: Potassium 3.5 mmol/L (3.5-5.1)
--- NOTE | 2021-07-02 13:58 | P.PN ---
Subjective Progress Note Date: 07/02/21 Principal diagnosis: Acute hypoxic respiratory failure, multifactorial. This is a 71-year-old female with history of severe COPD, O2 dependent, normally sees Dr. Holland on outpatient basis. Patient is also known to have history of underlying coronary artery disease, previous PCI back in 2016. History of endovascular aortic aneurysm repair, patient has chronic hypoxic referral failure maintained on oxygen at home. She presented to the ER yesterday with one month history of cough and shortness of breath. And her symptoms have become significantly worse. Patient was also developing some right vague chest discomfort. Seen in the ER, and CT angiogram of the chest showed evidence of right sided pulmonary embolism. Patient was started on heparin, and later on a follow-up chest x-ray showed evidence of large right-sided pneumothorax. Patient had a chest tube placed by the ER physician/jaylen about with complete reexpansion of the right lung, however continued to have some questionable inflammatory changes in the right lower lobe or atelectatic changes in the right lower lobe. Patient was seen by many consultants because she developed atrial fibrillation with RVR, cardiology saw the patient and recommended treatment with amiodarone. Patient was also seen by thoracic surgery for a right-sided pneumothorax. And presently the chest tube seems to be in the proper position, and the lung seems to be fully expanded. Patient is also on heparin for her atrial fibrillation is also for her acute pulmonary embolism. Labs today showed W Zbigniew of 3.9 hemoglobin 13.1 and platelets are 1 26,000 electrolytes showed low potassium of 3.0 and that being addressed accordingly. Troponin is 0.238 Reevaluated today on 06/29/2021, patient remains in the ICU, remains on heparin she is off IV amiodarone, patient has no air leak noted in the chest tube, she is still requiring 10 L high flow nasal cannula, O2 saturation remains marginal. Patient is being followed by many consultants. And I plan to discontinue her heparin and start the patient on Eliquis. Electrolytes are normal renal profile is normal PTT is therapeutic hemoglobin is 13.5 WBC count is 8.5 troponin is 0.238. Patient had positive blood cultures for Pseudomonas, hence she remains on cefepime at present. Her blood pressure is marginal, presently not requiring any pressors. Chest x-ray showed complete reexpansion of the right lung, right lower lobe consolidation is noted. Reevaluated today on 06/30/2021, patient remains in the ICU, she is presently on high flow nasal cannula, and O2 saturation is marginal at best. Her daughter is at bedside, and updated her daughter on her condition. Dr. Masters also discussed her condition with the daughter, initially her daughter was going to change her CODE STATUS from DO NOT RESUSCITATE to full code, but after discussing her status with us and with Dr. Masters, CODE STATUS remains DO NOT RESUSCITATE. In the meantime the patient is developing worsening pleural effusion on the right side, there is no evidence of pneumothorax, and the lung is fully expanded. Ultrasound of the chest is suggestive of a complicated right-sided pleural effusion with debris, I am a bit concerned about hemothorax in the right chest, I'm also concerned about the possibility of empyema. Patient did come in with pseudomonas bacteremia, and I would again be concerned about and empyema in the right pleural space. I am requesting pigtail catheter placement by interventional radiology hopefully it could be done today. Patient was on heparin which was discontinued yesterday, and she was started on Eliquis. She only received 1 dose last night and one dose today. WBC count today is 7.8 hemoglobin is 12. Sodium is 126 potassium 4.2 bicarb is 16 with anion gap of 15 BUN is 23 creatinine 0.52. Reevaluated today on 07/01/2021, patient remains in the ICU, she is on 10 L high flow nasal cannula, patient has marginal O2 saturations. She is on amiodarone now at 0.5 mg/m, she is on D5 45 at 75 mL per hour. Patient is on antibiotics for Pseudomonas bacteremia. She is receiving heparin for pulmonary embolism. She is receiving antibiotics for her underlying COPD. Yesterday discussed her ultrasound of the chest with the radiologist, and the initial report about a large pleural effusion has been amended by the radiologist, apparently there is no significant pleural effusion to consider pigtail catheter placement. Patient has mostly right lower lobe atelectasis and collapse right lower lobe. Labs today showed WBC12.5 hemoglobin is 12.2 lites are normal renal profile is normal Reevaluated on 07/02/2021, patient developed worsening respiratory status early this morning, patient was placed on BiPAP briefly she was given Lasix 40 mg IV push, and she diuresed over 1300 mL within a short period of time. She felt better and she was transitioned again to a high flow nasal cannula. She is now on 15 L. Feeling a bit better, chest x-ray showed worsening infiltrate and airspace disease in the right lung, and there was increased consolidation in the left lung base. She was also noted to have a small right pleural effusion, clinically the patient felt better post diuretics, hence I will maintain the patient on diuretics, she remains on antibiotics for her Pseudomonas pneumonia and Pseudomonas bacteremia. Her right lung seems to be completely expanded, thoravent was discontinued a few days ago. WBC count today is 19.2 hemoglobin is 13.2 electrolytes are normal BUN is 13 creatinine 0.39. Patient remains on cefepime for her pseudomonal infection. Objective - Vital Signs Vital signs: Vital Signs Temp 98.3 F 07/02/21 08:00 Pulse 81 07/02/21 11:52 Resp 25 H 07/02/21 09:00 BP 130/72 07/02/21 09:00 Pulse Ox 99 07/02/21 09:00 Intake & Output 07/01/21 07/02/21 07/02/21 18:59 06:59 18:59 Intake Total 1370.282 490 20 Output Total 545 1905 40 Balance 825.282 -1415 -20 Weight 82 kg Intake: IV 1175 440 20 Cefepime 2 gm In Sodium 200 Chloride 0.9% 100 ml @ 25 mls/hr IVPB Q8H BRE Rx#: [id number] D5 0.45 NS 975 440 20 Intake, IV Titration 195.282 Amount Amiodarone 450 mg In 195.282 Dextrose 5% in Water 250 ml @ 0.5 MG/MIN 16.667 mls/hr IV .Q15H BRE Rx#: [id number] Oral 50 Output: Urine 545 1905 40 Other: Voiding Method Indwelling Catheter Indwelling Catheter - Exam Physical Exam revealed 71-year-old female on nasal cannula, she is actually on 15 L high flow nasal cannula, does not seem to be in distress. She felt better post diuresis. Head: Atraumatic, normocephalic. HEENT:[Neck is supple.] [No neck masses.] [No thyromegaly.] [No JVD.] Chest: Diminished breath sounds at the right base. Crackles at the right base are noted. Cardiac Exam: Irregular irregular rhythm, 2/6 systolic murmur thought the precordium. No rubs, no gallops Abdomen: [Obese, Soft, nontender, no megaly, no rebound, no guarding, normal bowel sounds.] Extremities: [No clubbing, 1+ bipedal edema, no cyanosis.] Neurological Exam: [No focal neurologic deficit.] Alert and oriented 3. Psychiatric: Normal mood affect and normal mental status examination. - Labs CBC & Chem 7: 07/02/21 02:47 07/02/21 12:35 Labs: Abnormal Lab Results - Last 24 Hours (Table) 07/02/21 07/02/21 Range/Units 02:47 02:47 WBC 19.2 H (3.8-10.6) k/uL Plt Count 148 L (150-450) k/uL Neutrophils # 17.2 H (1.3-7.7) k/uL Lymphocytes # 0.8 L (1.0-4.8) k/uL Sodium 132 L (137-145) mmol/L Carbon Dioxide 21 L (22-30) mmol/L Creatinine 0.39 L (0.52-1.04) mg/dL Glucose 103 H (74-99) mg/dL Total Protein 5.0 L (6.3-8.2) g/dL Albumin 2.5 L (3.5-5.0) g/dL Assessment and Plan Assessment: Impression: Acute on chronic hypoxic respiratory failure, multifactorial. Acute sepsis and bacteremia secondary to pseudomonas aeruginosa. Acute pulmonary embolism without ventricular strain. Acute spontaneous right-sided pneumothorax. Acute exacerbation of COPD. Possible right lower lobe pneumonia/pseudomonal pneumonia is likely since the patient had positive blood cultures for Pseudomonas. New-onset atrial fibrillation. History of underlying coronary artery disease. History of endovascular aortic repair. Right lower lobe collapse, no evidence of pleural effusion based on amended report by the radiologist regarding her ultrasound Recommendation: Continue antibiotics/cefepime. Continue to monitor in the ICU. Continue present supportive care measures. Continue bronchodilators Continue Eliquis. Continue diuretics Continue to monitor chest x-rays every other day. Titrate oxygen accordingly. Patient is normally on home oxygen. Overall prognosis is extremely poor and guarded. We will continue to follow. CODE STATUS is DO NOT RESUSCITATE. Time with Patient: Less than 30
[2021-07-02] MEDS: POTASSIUM CHLORIDE ER 20 MEQ TAB.ER PO SCH ×2 (14:02→16:20)
[2021-07-02] MEDS: MAGNESIUM SULFATE-D5W PMX 1 GM in DEXTROSE/WATER 1 100ML.BAG IVPB SCH ×2 (14:02→16:20)
[2021-07-02] MEDS: FUROSEMIDE 10 MG/ML 2 ML VIAL IV SCH ×2 (16:20→23:46)
[2021-07-03] MEDS: CEFEPIME 2 GM in SODIUM CHLORIDE 0.9% 100 ML IVPB SCH ×3 (02:32→18:07)
[2021-07-03] MEDS: IPRATROPIUM 0.5 MG/2.5 ML NEBU INHALATION SCH ×2 (03:39→08:29)
[2021-07-03 04:26] LABS: Basophils # (A) 0.1 k/uL (0-0.2); Basophils % (A) 0 %; Eosinophils % (A) 0 %; HGB 13.1 gm/dL (11.4-16.0); Lymphocytes # (A) 0.7 k/uL (1.0-4.8); Lymphocytes % (A) 3 %; MCH 31.6 pg (25.0-35.0); MCHC 32.9 g/dL (31.0-37.0); MCV 96.1 fL (80.0-100.0); Monocytes # (A) 0.6 k/uL (0-1.0); Monocytes % (A) 2 %; Neutrophils # (A) 22.9 k/uL (1.3-7.7); Neutrophils % (A) 93 %; Platelet Count 163 k/uL (150-450); RBC 4.16 m/uL (3.80-5.40); WBC 24.6 k/uL (3.8-10.6)
[2021-07-03 04:27] LABS: ALT 15 U/L (4-34); AST 24 U/L (14-36); African American GFR (CKD) >90 (>60 ml/min/1.73 sqM); Albumin 2.3 g/dL (3.5-5.0); Alkaline Phosphatase 52 U/L (38-126); Anion Gap 9 mmol/L; Blood Urea Nitrogen 17 mg/dL (7-17); Calcium 8.4 mg/dL (8.4-10.2); Carbon Dioxide 26 mmol/L (22-30); Chloride 99 mmol/L (98-107); Glucose 125 mg/dL (74-99); Magnesium 2.1 mg/dL (1.6-2.3); Non-African American GFR(CKD) >90 (>60 ml/min/1.73 sqM); Potassium 3.4 mmol/L (3.5-5.1); Sodium 134 mmol/L (137-145); Total Bilirubin 0.6 mg/dL (0.2-1.3); Total Protein 4.8 g/dL (6.3-8.2)
[2021-07-03] MEDS: HYDROmorphone 1 MG/ML 1 ML SYRINGE IVP PRN ×2 (05:55→14:10)
[2021-07-03] MEDS ORDERED: POTASSIUM CHLORIDE ER 20 MEQ TAB.ER PO SCH (07:00)
--- NOTE | 2021-07-03 07:57 | XR ---
EXAMINATION TYPE: XR chest 1V portable DATE OF EXAM: 07/03/2021 COMPARISON: 07/02/2021 INDICATION: Congestion TECHNIQUE: Single frontal view of the chest is obtained. FINDINGS: The heart size is normal. The pulmonary vasculature is normal. There is a large consolidation in the right upper lobe. Milder left lower lobe consolidations present . Some mild changes of the right base. Aortic stent is present. Pulmonary vasculature is normal. IMPRESSION: 1. Increasing opacification in the right upper lobe consolidation. 2. Improvement of the right lower lobe infiltrate and left basilar treatment.
[2021-07-03] MEDS: BUDESONIDE 1 MG/2 ML NEBU INHALATION SCH ×2 (08:29→19:41)
[2021-07-03] MEDS: FORMOTEROL FUMARATE 20 MCG/2 ML NEBU INHALATION SCH ×2 (08:29→19:41)
[2021-07-03] MEDS: FUROSEMIDE 10 MG/ML 2 ML VIAL IV SCH ×3 (08:44→23:28)
[2021-07-03] MEDS: methylPREDNISolone SOD SUCCI 40 MG/ML 1 ML VIAL IV SCH ×3 (08:44→23:28)
[2021-07-03] MEDS: SODIUM BICARBONATE TAB 650 MG TAB PO SCH ×3 (08:45→21:37)
[2021-07-03] MEDS: PANTOPRAZOLE 40 MG TABLET PO SCH (08:45)
[2021-07-03] MEDS: APIXABAN 5 MG TAB PO SCH ×2 (08:45→21:37)
[2021-07-03] MEDS: AMIODARONE 200 MG TAB PO SCH ×2 (08:46→21:37)
[2021-07-03] MEDS: METOPROLOL TARTRATE 50 MG TAB PO SCH ×3 (08:46→21:37)
[2021-07-03] MEDS: HYDROPHILIC CREAM 180 GM TUBE TOPICAL SCH ×2 (10:40→10:57)
[2021-07-03] MEDS: DEXTROSE 5%-0.45% NACL 1,000 ML IV SCH (10:56)
[2021-07-03] MEDS: ACETAMINOPHEN TAB 325 MG TAB PO PRN (11:03)
--- NOTE | 2021-07-03 11:38 | PN ---
PROGRESS NOTE Mrs. Sharma is a 71-year-old female with history of severe chronic obstructive lung disease, O2-dependent, history of coronary artery disease, prior PCI, history of endovascular aortic aneurysm, who was found to have right-sided pneumothorax on presentation as well as episode of atrial fibrillation and rapid ventricular response. She is feeling better today. Her breathing is stable. She is denying any symptoms of chest pain. She denies any dizziness. She denies any palpitations. She continues to be in sinus mechanism. Hemodynamically she is stable. Her urine output has been stable. She continues to be at this time on amiodarone 400 mg twice a day, Lasix 20 mg IV q.8 hours, Eliquis 10 mg twice a day because of the pulmonary embolism, metoprolol tartrate 50 mg 3 times a day. PHYSICAL EXAMINATION: Blood pressure is running in the 110s to 120s with a heart rate in the 80s. Lungs with a few crackles at the bases. No wheezes. Heart regular rate and rhythm. S1, S2. No S3. No rub appreciated. Abdomen is soft, non-tender. Positive bowel sounds. Extremities: No edema noted. LAB DATA: Lab data revealed BUN and creatinine of 17 and 0.44, potassium 3.4, hemoglobin 13.1, white blood cells 24.6. IMPRESSION: 1. Respiratory failure with chronic obstructive pulmonary disease, improving. 2. Pneumonia with Pseudomonas aeruginosa. 3. Acute pulmonary embolism, stable. 4. Spontaneous right-sided pneumothorax. 5. History of lung disease. 6. Paroxysmal fibrillation. 7. History of endovascular aortic repair. RECOMMENDATIONS: From the cardiac standpoint, the patient continues to be in sinus mechanism. Will continue on the present dose of amiodarone for a total of one week, then will cut it down to 200 mg twice a day. Follow her blood pressure and adjust her antihypertensive regimen accordingly. Continue to follow her renal function closely and depending her progress, further recommendations will be made. MMODL / IJN: [id number] /
[2021-07-03] MEDS: IPRATROPIUM-ALBUTEROL 3 ML NEB INHALATION SCH ×3 (11:49→19:41)
--- NOTE | 2021-07-03 12:13 | P.PN ---
Subjective Progress Note Date: 07/03/21 Shortness of breath On 07/03/2001 patient seen in follow-up in the intensive care unit, she is awake and alert, in no acute distress, she states her breathing is improving, she is down to 8 L of oxygen on today's exam, she had previously been on 12 L. Pulse ox on 8 L is 91-92%, she did not require BiPAP support last night, she does wear a CPAP device at home on a nightly basis. Lung sounds reveal diffuse rhonchi. She needs quite a bit of encouragement to keep working on the incentive spirometer, she is able to achieve 500-750 on it today. No complaint of chest discomfort, no hemoptysis. Patient is being treated for pseudomonal bacteremia, she remains on cefepime. She is on D5 half-normal seen at a rate of 20 ML per hour, she is on nebulized bronchodilators, she is on IV Lasix at 20 mg every 8 hours, she is in -2.3 L net fluid balance over the last 24 hours, today's chest x-ray findings show increasing opacification in the right upper lobe consolidation, and improvement of the right lower lobe infiltrate and left basilar treatment. His labs have been reviewed, with blood cell count is 24.6, hemoglobin is 13.1, sodium is 134, potassium is 3.4, BUN was 17 creatinine was 0.44. Overall patient is still quite weak, short of breath with any exertion, she has been bedbound for the most part. Otherwise hemodynamically stable, not requiring any norepinephrine. No pneumothorax on today's exam, her right-sided thoravent was removed yesterday, patient had a run of AJAMR Labs, currently in sinus mechanism, she is on Eliquis, and oral amiodarone. She is also on Lopressor 50 mg 3 times daily Objective - Vital Signs Vital signs: Vital Signs Temp 97.5 F L 07/03/21 08:00 Pulse 66 07/03/21 10:00 Resp 10 L 07/03/21 10:00 BP 113/62 07/03/21 10:00 Pulse Ox 93 L 07/03/21 10:00 Intake & Output 07/02/21 07/03/21 07/03/21 18:59 06:59 18:59 Intake Total 260 420 100 Output Total 1060 1920 270 Balance -800 -1500 -170 Weight 81.6 kg Intake: IV 260 320 100 Cefepime 2 gm In Sodium 100 100 Chloride 0.9% 100 ml @ 25 mls/hr IVPB Q8H [facility] Rx#: [id number] D5 0.45 NS 160 220 100 Intake, IV Titration 100 Amount Cefepime 2 gm In Sodium 100 Chloride 0.9% 100 ml @ 25 mls/hr IVPB Q8H [facility] Rx#: [id number] Output: Urine 1060 1920 270 Other: Voiding Method Indwelling Catheter Indwelling Catheter Indwelling Catheter - Exam GENERAL EXAM: Alert, very pleasant, 71-year-old white female, generally weak, currently down to 8 L of oxygen and the pulse ox of 91%, comfortable in no apparent distress. HEAD: Normocephalic/atraumatic. EYES: Normal reaction of pupils, equal size. Conjunctiva pink, sclera white. NOSE: Clear with pink turbinates. THROAT: No erythema or exudates. NECK: No masses, no JVD, no thyroid enlargement, no adenopathy. CHEST: No chest wall deformity. Symmetrical expansion. LUNGS: Equal air entry with diffuse rhonchi CVS: Regular rate and rhythm, normal S1 and S2, no gallops, no murmurs, no rubs ABDOMEN: Soft, nontender. No hepatosplenomegaly, normal bowel sounds, no guarding or rigidity. EXTREMITIES: No clubbing, no edema, no cyanosis, 2+ pulses and upper and lower extremities. MUSCULOSKELETAL: Muscle strength and tone normal. SPINE: No scoliosis or deformity SKIN: No rashes CENTRAL NERVOUS SYSTEM: Alert and oriented -3. No focal deficits, tone is normal in all 4 extremities. PSYCHIATRIC: Alert and oriented -3. Appropriate affect. Intact judgment and insight. - Labs CBC & Chem 7: 07/03/21 03:29 07/03/21 03:29 Labs: Abnormal Lab Results - Last 24 Hours (Table) 07/03/21 07/03/21 Range/Units 03:29 03:29 WBC 24.6 H (3.8-10.6) k/uL Neutrophils # 22.9 H (1.3-7.7) k/uL Lymphocytes # 0.7 L (1.0-4.8) k/uL Sodium 134 L (137-145) mmol/L Potassium 3.4 L (3.5-5.1) mmol/L Creatinine 0.44 L (0.52-1.04) mg/dL Glucose 125 H (74-99) mg/dL Total Protein 4.8 L (6.3-8.2) g/dL Albumin 2.3 L (3.5-5.0) g/dL Assessment and Plan Plan: Assessment: #1. Acute on chronic hypoxic respiratory failure, multifactorial, related to possible right lower lobe pseudomonal pneumonia, bacteremia, acute pulmonary embolism, and spontaneous right-sided pneumothorax #2. Acute sepsis and bacteremia secondary to pseudomonas aeruginosa, currently on cefepime #3. Acute pulmonary embolism without ventricular strain, on Eliquis #4. Acute exacerbation of COPD #5. Acute spontaneous right-sided pneumothorax, status post smallbore chest tube placement and subsequent removal, follow-up chest x-ray shows no evidence of pneumothorax #6. New onset atrial fibrillation, patient is on amiodarone and Lopressor and Eliquis, currently in sinus mechanism #7. History of underlying coronary artery disease #8. History of endovascular aortic repair #9. Right lower lobe collapse without evidence of pleural effusion based on the limited reported by the radiologist regarding the ultrasound Plan: Continue weaning FiO2 to keep O2 sats ration's at 90% or above Patient has been diuresing, not requiring BiPAP support, oxygenation improved compared to yesterday No evidence of pneumothorax on follow-up chest x-ray Vital signs have been stable, no fever or chills Continue current antibiotics We'll send of follow-up blood culture Continue nebulized bronchodilators May DC BiPAP Encourage deep breathing and coughing Continue IV diuretics Follow-up blood work including CBC and CMP in follow-up chest x-ray tomorrow We'll continue to follow I performed a history & physical examination of the patient and discussed their management with my nurse practitioner, Jacque Arvizu. I reviewed the nurse practitioner's note and agree with the documented findings and plan of care. Lung sounds are positive for diffuse rhonchi throughout the lung aden. The findings and the impression was discussed with the patient. I attest to the documentation by the nurse practitioner. Time with Patient: Less than 30
--- NOTE | 2021-07-03 13:51 | P.PN ---
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 Chronic stable medical conditions include coronary artery disease with stent, some mild right-sided weakness from prior stroke, hypertension, hyperlipidemia, obstructive sleep apnea uses CPAP machine, TB in 1985, hiatal hernia, surgery for thoracic aortic aneurysm, sleeve gastrectomy [place] [address] Hamilton. Home oxygen 4 L Patient presented to the ER with some right-sided and right posterior pain. Worse with deep breathing. No trauma. More short of breath than baseline. No fever and chills. Some baseline cough. Appetite is fair.. Patient found to be in the ER started on IV heparin. Pulmonary was consulted. Patient's grandson at the bedside. Patient is vaccinated for COVID 19. July 08: ICU: Last night patient developed right-sided pneumothorax in the ER. Thora-vent was placed. Followed by chest tube. Patient moved to the ICU. Went to A. fib with rapid ventricular rate. Today started IV amiodarone. Remains on IV heparin. Patient's grandson and his mother at the bedside. Short of breath. Tired. June 29: ICU: Thora-vent.. Short of breath. A. fib with rapid ventricular rate. Back on IV amiodarone. Had been held. Tired. Taking small amounts. ensure ordered. FiO2 increased to 15 L June 30: ICU: Thora-vent is capped. Short of breath. Patient yesterday went back in sinus rhythm. Then back into A. fib with rapid ventricular rate. Put back on IV amiodarone. Patient's daughter was out of town at the bedside. She had talked to the patient and felt the patient was not sure about the CODE STATUS. So we will going to revert the patient to full code. I did ask her to discuss with the patient and let us know. No refills DO NOT RESUSCITATE will be appropriate but he wanted the patient and the daughter decided. Later the patient came back and informed be that she discussed with the patient again and patient was to remain DO NOT RESUSCITATE. Decreased oral intake. On 15 L of oxygen. Started on eliquis. IV heparin discontinued. July 01: ICU: Thora-vent capped. A bit less short of breath. Eating little. In sinus rhythm. IV amiodarone drip. Her daughter the bedside. Ensure ordered July 02: ICU: Thora-vent remains. Remains on 15 L of nasal cannula. Tired. Daughter the bedside. Eating small amounts. Including some Ensure. Remains in sinus rhythm. IV amiodarone changed over to by mouth amiodarone. Tired July 03: ICU: Thora-vent capped. Sitting up in a chair. FiO2 down to 5 L. Eating some. Sr. the bedside. Remains in sinus rhythm. Breathing better. Review of systems: Was done for constitutional, cardiovascular, GI, pulmonary. relevant finding as above Active Medications Acetaminophen (Acetaminophen Tab 325 Mg Tab) 650 mg PO Q6HR PRN PRN Reason: Mild Pain or Fever > 100.5 Last Admin: 07/03/21 11:03 Dose: 650 mg Documented by: Al Hydroxide/Mg Hydroxide (Mag Hydrox/Al Hydrox/Simeth 30 Ml Cup) 15 ml PO Q6HR PRN PRN Reason: Indigestion Albuterol Sulfate (Albuterol Nebulized 2.5 Mg/3 Ml) 2.5 mg INHALATION RT-QID PRN PRN Reason: Shortness Of Breath Albuterol/Ipratropium (Ipratropium-Albuterol 3 Ml Neb) 3 ml INHALATION RT-QID [facility] Last Admin: 07/03/21 11:49 Dose: Not Given Documented by: Amiodarone HCl (Amiodarone 200 Mg Tab) 400 mg PO BID [facility] Last Admin: 07/03/21 08:46 Dose: 400 mg Documented by: Apixaban (Apixaban 5 Mg Tab) 10 mg PO BID [facility]; Protocol Stop: 07/05/21 12:29 Last Admin: 07/03/21 08:45 Dose: 10 mg Documented by: Budesonide (Budesonide 1 Mg/2 Ml Nebu) 1 mg INHALATION RT-BID [facility] Last Admin: 07/03/21 08:29 Dose: 1 mg Documented by: Calcium Carbonate/Glycine (Calcium Carbonate 500 Mg Chewable) 1,000 mg PO Q4HR PRN PRN Reason: Dyspepsia Formoterol Fumarate (Formoterol Fumarate 20 Mcg/2 Ml Nebu) 20 mcg INHALATION RT-BID [facility] Last Admin: 07/03/21 08:29 Dose: 20 mcg Documented by: Furosemide (Furosemide 10 Mg/Ml 2 Ml Vial) 20 mg IV Q8HR [facility] Last Admin: 07/03/21 08:44 Dose: 20 mg Documented by: Hydromorphone HCl (Hydromorphone 1 Mg/Ml 1 Ml Syringe) 1 mg IVP Q6HR PRN PRN Reason: Pain Cefepime HCl 2 gm/ Sodium (Chloride) 100 mls @ 25 mls/hr IVPB Q8H [facility] Last Admin: 07/03/21 10:39 Dose: 25 mls/hr Documented by: Dextrose/Sodium Chloride (Dextrose 5%-1/2ns Iv Soln) 1,000 mls @ 20 mls/hr IV .Q24H [facility] Last Admin: 07/03/21 10:56 Dose: 20 mls/hr Documented by: Lactulose (Lactulose 20 Gm/30 Ml Cup) 20 gm PO DAILY PRN PRN Reason: Constipation Melatonin (Melatonin 3 Mg Tablet) 3 mg PO HS PRN PRN Reason: Insomnia Methylprednisolone Sodium Succinate (Methylprednisolone Sod Succi 40 Mg/Ml 1 Ml Vial) 40 mg IV Q8HR [facility] Last Admin: 07/03/21 08:44 Dose: 40 mg Documented by: Metoprolol Tartrate (Metoprolol Tartrate 50 Mg Tab) 50 mg PO TID [facility] Last Admin: 07/03/21 08:46 Dose: 50 mg Documented by: Miscellaneous Information (Potassium Replacement Protocol 1 Each Misc) 1 each MISCELLANE DAILY PRN; Protocol PRN Reason: Per Protocol Miscellaneous Information (Magnesium Replacement Protocol 1 Each Misc) 1 each MISCELLANE DAILY PRN; Protocol PRN Reason: Per Protocol Multi-Ingred Cream/Lotion/Oil/Oint (Hydrophilic Cream 180 Gm Tube) 1 applic TOPICAL DAILY [facility]; Protocol Last Admin: 07/03/21 10:57 Dose: Not Given Documented by: Naloxone HCl (Naloxone 0.4 Mg/Ml 1 Ml Vial) 0.2 mg IV Q2M PRN PRN Reason: Opioid Reversal Ondansetron HCl (Ondansetron 4 Mg/2 Ml Vial) 4 mg IVP Q8HR PRN PRN Reason: Nausea And Vomiting Last Admin: 06/28/21 10:31 Dose: 4 mg Documented by: Pantoprazole Sodium (Pantoprazole 40 Mg Tablet) 40 mg PO DAILY [facility] Last Admin: 07/03/21 08:45 Dose: 40 mg Documented by: Sodium Bicarbonate (Sodium Bicarbonate Tab 650 Mg Tab) 650 mg PO TID [facility] Last Admin: 07/03/21 08:45 Dose: 650 mg Documented by: Past medical history to include: Coronary artery disease with stent, COPD, stroke with some mild right-sided weakness, hyperlipidemia, hypertension, obstructive sleep apnea uses CPAP, TB 1985, hiatal hernia, sleeve gastrectomy in 2018, surgery for thoracic aortic aneurysm, 4 L of oxygen at home Social history: Started smoking age of 15 stopped in 2011. One pack a day. Alcohol occasionally. Lives with her grandson. Occasionally uses a cane or a walker. Family history: IN, pacemaker, COPD Physical examination: VITAL SIGNS: Afebrile, 78, 25, 96/54, 89% on 5 L GENERAL: Sitting up in a chair, less short of breath, Thora-vent:capped EYES: Pupils equal. Conjunctiva normal. HEENT: External appearance of nose and ears normal, oral cavity grossly normal. NECK: JVD not raised; masses not palpable. HEART: First and second heart sounds are normal; mild edema in the left lower extremity LUNGS: Respiratory rate increased, decreased breath sounds. ABDOMEN: Soft, nontender, liver spleen not palpable, no masses palpable. PSYCH: Alert and oriented x3; mood and affect normal NEUROLOGICAL: Cranial nerves grossly intact; no facial asymmetry, mild right hemiparesis INVESTIGATIONS, reviewed in the clinical context: July 03: WBC 24.6 hemoglobin 13.1 progression 3. 4 repeat 3.8 creatinine 0.44 July 02: WBC 19.2 hemoglobin 13.2 sodium 132 potassium 3.7 creatinine 0.39 July 01: White count 12.5 hemoglobin 12.2 potassium 3.4 creatinine 0.51 June 30: White count 7.8 hemoglobin 12 platelets 149, sodium 126 potassium 4.2 creatinine 0.5 to 2-D echocardiogram: EF 50-55% June 28: White count 3.9 hemoglobin 13.1 platelets 126 sodium 135 potassium 3 when necessary 24 crit and 0.7 to White count 16.2 hemoglobin 14.9 platelets 212 d-dimer 23.3 sodium 137 potassium 3 BUN 28 creatinine 1.14 Troponin I 0.508 proBNP 688 Coronavirus [PCR] not detected EKG tracing personally reviewed by me-normal sinus rhythm. Flipped T waves. T he anterolateral leads. PVC. Computed tomography scan of the chest: Aortic stent. Large pneumatocele is in the posterior right lung. Acute PE in the right middle and lower lobe arteries secondary intensity branches. Right lower lobe consolidation and/or mass. Chest x-ray film personally reviewed by me-right basilar infiltrate, aortic graft Assessment and plan: -Acute PE in the right middle and lower lobe arteries and secondary branches, IV heparin. Changed to eliquis. -Probable right basilar pneumonia suspected gram-negative organism IV cefepime -Paroxysmal atrial fibrillation with a rapid ventricular rate upon presentation: Currently sinus rhythm IV amiodarone drip. Changed to by mouth amiodarone -IV heparin monitoring: Discontinued Follow PTT -Spontaneous pneumothorax: Improved Thora-vent, capped -Chronic hypoxic respiratory failure from COPD On home oxygen 4 -Acute hypoxic respiratory failure from PE: Better Oxygen supplementation. FiO2 5 liters -Acute severe COPD exacerbation in an ex-smoker-: Slow to respond on bronchodilators, inhaled steroids. Long-acting beta agonist. -Coronary artery disease with stent Lopressor, -Mild right hemiparesis from prior stroke -Hyperlipidemia, -Hypokalemia Replace potassium -Hyponatremia Encourage oral intake -Essential hypertension, amlodipine 10 mg daily, Lopressor 25 mg a day -Obstructive sleep apnea uses CPAP , continue the same -Hiatal hernia -History of sleeve gastrectomy -DO NOT RESUSCITATE IV cefepime-changed to Omnicef. amiodarone. Bronchodilators. eliquis. Encourage oral intake.
[2021-07-03] MEDS: SODIUM CHLORIDE 0.9% 500 ML 500 ML IV SCH (16:36)
[2021-07-04 03:51] LABS: Basophils # (A) 0.1 k/uL (0-0.2); Basophils % (A) 0 %; Eosinophils % (A) 0 %; HCT 36.7 % (34.0-46.0); Lymphocytes # (A) 0.9 k/uL (1.0-4.8); Lymphocytes % (A) 4 %; MCH 31.5 pg (25.0-35.0); MCHC 32.6 g/dL (31.0-37.0); MCV 96.6 fL (80.0-100.0); Mean Platelet Volume 8.8; Monocytes # (A) 0.6 k/uL (0-1.0); Monocytes % (A) 3 %; Neutrophils # (A) 19.7 k/uL (1.3-7.7); Neutrophils % (A) 91 %; Platelet Count 222 k/uL (150-450); RDW 13.6 % (11.5-15.5); WBC 21.6 k/uL (3.8-10.6)
[2021-07-04 04:03] LABS: ALT 31 U/L (4-34); AST 45 U/L (14-36); African American GFR (CKD) >90 (>60 ml/min/1.73 sqM); Albumin 2.4 g/dL (3.5-5.0); Alkaline Phosphatase 52 U/L (38-126); Anion Gap 10 mmol/L; Blood Urea Nitrogen 30 mg/dL (7-17); Calcium 8.4 mg/dL (8.4-10.2); Carbon Dioxide 26 mmol/L (22-30); Chloride 99 mmol/L (98-107); Glucose 122 mg/dL (74-99); Non-African American GFR(CKD) >90 (>60 ml/min/1.73 sqM); Potassium 3.7 mmol/L (3.5-5.1); Sodium 135 mmol/L (137-145); Total Bilirubin 0.4 mg/dL (0.2-1.3); Total Protein 4.9 g/dL (6.3-8.2)
[2021-07-04] MEDS ORDERED: POTASSIUM CHLORIDE ER 20 MEQ TAB.ER PO SCH (05:00)
[2021-07-04] MEDS: IPRATROPIUM-ALBUTEROL 3 ML NEB INHALATION SCH ×4 (07:39→19:17)
[2021-07-04] MEDS: FORMOTEROL FUMARATE 20 MCG/2 ML NEBU INHALATION SCH ×2 (07:39→19:17)
[2021-07-04] MEDS: BUDESONIDE 1 MG/2 ML NEBU INHALATION SCH ×2 (07:39→19:17)
[2021-07-04] MEDS: FUROSEMIDE 10 MG/ML 2 ML VIAL IV SCH ×2 (08:47→21:46)
[2021-07-04] MEDS: PANTOPRAZOLE 40 MG TABLET PO SCH (08:48)
[2021-07-04] MEDS: METOPROLOL TARTRATE 50 MG TAB PO SCH ×3 (08:48→21:46)
[2021-07-04] MEDS: methylPREDNISolone SOD SUCCI 40 MG/ML 1 ML VIAL IV SCH ×3 (08:48→23:58)
[2021-07-04] MEDS: APIXABAN 5 MG TAB PO SCH ×2 (08:48→21:47)
[2021-07-04] MEDS: SODIUM BICARBONATE TAB 650 MG TAB PO SCH ×3 (08:48→21:47)
[2021-07-04] MEDS: AMIODARONE 200 MG TAB PO SCH ×2 (08:48→21:47)
[2021-07-04] MEDS: HYDROPHILIC CREAM 180 GM TUBE TOPICAL SCH (08:51)
[2021-07-04] MEDS ORDERED: CEFDINIR 300 MG CAP PO SCH (09:00)
--- NOTE | 2021-07-04 09:13 | XR ---
EXAMINATION TYPE: XR chest 1V portable DATE OF EXAM: 07/04/2021 COMPARISON: Chest x-ray 07/03/[address] 06/30/2021 HISTORY: Shortness of breath TECHNIQUE: Single frontal view of the chest is obtained. FINDINGS: Findings similar to prior exam, there is airspace disease bilaterally. Prosthetic stent gr aft is in place. No evident pneumothorax or sizable effusion. Cardiac mediastinal silhouette is stabl e. There are overlying artifacts. Interstitium is increased. There is underlying emphysema. IMPRESSION: Correlate for pneumonia, there is underlying lung mass. Aortic aneurysm.
--- NOTE | 2021-07-04 09:48 | P.PN ---
Subjective Progress Note Date: 07/04/21 Shortness of breath On 07/03/2001 patient seen in follow-up in the intensive care unit, she is awake and alert, in no acute distress, she states her breathing is improving, she is down to 8 L of oxygen on today's exam, she had previously been on 12 L. Pulse ox on 8 L is 91-92%, she did not require BiPAP support last night, she does wear a CPAP device at home on a nightly basis. Lung sounds reveal diffuse rhonchi. She needs quite a bit of encouragement to keep working on the incentive spirometer, she is able to achieve 500-750 on it today. No complaint of chest discomfort, no hemoptysis. Patient is being treated for pseudomonal bacteremia, she remains on cefepime. She is on D5 half-normal seen at a rate of 20 ML per hour, she is on nebulized bronchodilators, she is on IV Lasix at 20 mg every 8 hours, she is in -2.3 L net fluid balance over the last 24 hours, today's chest x-ray findings show increasing opacification in the right upper lobe consolidation, and improvement of the right lower lobe infiltrate and left basilar treatment. His labs have been reviewed, with blood cell count is 24.6, hemoglobin is 13.1, sodium is 134, potassium is 3.4, BUN was 17 creatinine was 0.44. Overall patient is still quite weak, short of breath with any exertion, she has been bedbound for the most part. Otherwise hemodynamically stable, not requiring any norepinephrine. No pneumothorax on today's exam, her right-sided thoravent was removed yesterday, patient had a run of A. fib, currently in sinus mechanism, she is on Eliquis, and oral amiodarone. She is also on Lopressor 50 mg 3 times daily On 07/04/2021 patient seen in follow-up in the intensive care unit. Patient continues on BiPAP support at 12 and 6 and FiO2 of 40%. Does not appear to be in any acute distress. Earlier patient was satting 98%, and her FiO2 has been dropped from 60% down to 40%. Denies any specific complaints, she's been afebrile, breathing is nonlabored. Today's chest x-ray has been reviewed showing increased interstitium, underlying emphysema. Today's labs have been reviewed, white blood cell count is improving and is down to 21.6, hemoglobin is 12, serum sodium is 135, the rest of the electrolytes are unremarkable, BUN is 30 creatinine 0.53. Patient continues on IV diuretics 20 mg every 8 hours, she is in -2.3 L or last 24 hours, with a total urine output of 2.9 L, her oxygenation has significantly improved with diuresis. Her FiO2 is currently down to 40%, breathing easier, patient also remains on antibiotics that were transitioned to oral Omnicef. Blood cultures were positive for pseudomonas aeruginosa. Yesterday we sent follow-up blood cultures and the results are pending right now. Vital signs have been stable. Patient continues on bronchodilators and IV Solu-Medrol 40 mg every 8 hours. Objective - Vital Signs Vital signs: Vital Signs Temp 98.1 F 07/04/21 02:00 Pulse 64 07/04/21 08:03 Resp 21 07/04/21 08:03 BP 131/79 07/04/21 02:00 Pulse Ox 98 07/04/21 02:00 Intake & Output 07/03/21 07/04/21 07/04/21 18:59 06:59 18:59 Intake Total 440 20 Output Total 580 350 Balance -140 -330 Weight 80.7 kg Intake: IV 440 20 Cefepime 2 gm In Sodium 200 Chloride 0.9% 100 ml @ 25 mls/hr IVPB Q8H [facility] Rx#: [id number] D5 0.45 NS 240 20 Output: Urine 580 350 Other: Voiding Method Indwelling Catheter Indwelling Catheter - Exam GENERAL EXAM: Alert, very pleasant, 71-year-old white female, generally weak, on BiPAP support with pressures of 12 and 6 and FiO2 is currently down to 40% from 60% on earlier exam, comfortable in no apparent distress. HEAD: Normocephalic/atraumatic. EYES: Normal reaction of pupils, equal size. Conjunctiva pink, sclera white. NOSE: Clear with pink turbinates. THROAT: No erythema or exudates. NECK: No masses, no JVD, no thyroid enlargement, no adenopathy. CHEST: No chest wall deformity. Symmetrical expansion. LUNGS: Equal air entry with diffuse rhonchi CVS: Regular rate and rhythm, normal S1 and S2, no gallops, no murmurs, no rubs ABDOMEN: Soft, nontender. No hepatosplenomegaly, normal bowel sounds, no guarding or rigidity. EXTREMITIES: No clubbing, no edema, no cyanosis, 2+ pulses and upper and lower extremities. MUSCULOSKELETAL: Muscle strength and tone normal. SPINE: No scoliosis or deformity SKIN: No rashes CENTRAL NERVOUS SYSTEM: Alert and oriented -3. No focal deficits, tone is normal in all 4 extremities. PSYCHIATRIC: Alert and oriented -3. Appropriate affect. Intact judgment and insight. - Labs CBC & Chem 7: 07/04/21 02:55 07/04/21 02:55 Labs: Abnormal Lab Results - Last 24 Hours (Table) 07/04/21 07/04/21 Range/Units 02:55 02:55 WBC 21.6 H (3.8-10.6) k/uL Neutrophils # 19.7 H (1.3-7.7) k/uL Lymphocytes # 0.9 L (1.0-4.8) k/uL Sodium 135 L (137-145) mmol/L BUN 30 H (7-17) mg/dL Glucose 122 H (74-99) mg/dL AST 45 H (14-36) U/L Total Protein 4.9 L (6.3-8.2) g/dL Albumin 2.4 L (3.5-5.0) g/dL Assessment and Plan Plan: Assessment: #1. Acute on chronic hypoxic respiratory failure, multifactorial, related to possible right lower lobe pseudomonal pneumonia, bacteremia, acute pulmonary embolism, and spontaneous right-sided pneumothorax #2. Acute sepsis and bacteremia secondary to pseudomonas aeruginosa, currently on cefepime #3. Acute pulmonary embolism without ventricular strain, on Eliquis #4. Acute exacerbation of COPD #5. Acute spontaneous right-sided pneumothorax, status post smallbore chest tube placement and subsequent removal, follow-up chest x-ray shows no evidence of pneumothorax #6. New onset atrial fibrillation, patient is on amiodarone and Lopressor and Eliquis, currently in sinus mechanism #7. History of underlying coronary artery disease #8. History of endovascular aortic repair #9. Right lower lobe collapse without evidence of pleural effusion based on the limited reported by the radiologist regarding the ultrasound Plan: Continue BiPAP support is needed during the day and at bedtime Today's chest x-ray has been reviewed and no evidence of pneumothorax on follow- up chest x-ray We will restart patient's cefepime until we have the results of follow-up blood cultures from yesterday on 07/03/2021 DC Cefdinir Vital signs have been stable, no fever or chills Continue nebulized bronchodilators Continue current dose IV steroids We will cut back diuretics to twice daily at 20 mg IV push We'll continue to follow November DC BiPAP Encourage deep breathing and coughing Continue IV diuretics I performed a history & physical examination of the patient and discussed their management with my nurse practitioner, Jacque Arvizu. I reviewed the nurse practitioner's note and agree with the documented findings and plan of care. Lung sounds are positive for diffuse rhonchi throughout the lung aden. The findings and the impression was discussed with the patient. I attest to the documentation by the nurse practitioner. Time with Patient: Less than 30
[2021-07-04] MEDS: CEFEPIME 2 GM in SODIUM CHLORIDE 0.9% 100 ML IVPB SCH ×3 (10:38→23:58)
--- NOTE | 2021-07-04 11:39 | PN ---
PROGRESS NOTE Mrs. Jauregui is a 71-year-old female who has a history of chronic obstructive lung disease, history of coronary artery disease. She is O2-dependent. She had prior PCI and endovascular aortic aneurysm repair. She had a right-sided pneumothorax as well as episode of atrial fibrillation. She is on the BiPAP today in sinus mechanism. Hemodynamically she is stable. Her urine output has been stable. She has continued to be on anticoagulation because of her pulmonary embolism. She continues otherwise to be on the amiodarone 400 mg twice a day. She is receiving Lasix 20 mg IV q.8 hours, metoprolol 50 mg 3 times a day. PHYSICAL EXAMINATION: Blood pressure in the 130s with a heart rate in the 50s to 70s. Lungs are clear anteriorly with decreased air exchange. HEART: Regular rate and rhythm. S1, S2. No S3, with systolic murmur. No diastolic murmur. Abdomen soft, non-tender. Extremities no edema. LAB DATA: BUN and creatinine of 30 and 0.53, potassium 3.7, hemoglobin of 12, white blood cell count of 21.6. IMPRESSION: 1. Respiratory failure with exacerbation of severe chronic obstructive pulmonary disease. 2. Pneumothorax, spontaneous. 3. Pulmonary embolism, on anticoagulation. 4. Atrial fibrillation; back in sinus mechanism with episode of sinus bradycardia. 5. Coronary artery disease. 6. Status post endovascular aortic repair. RECOMMENDATIONS: Because of the bradycardia, I will cut down the dose of her amiodarone at this time to 200 mg twice a day. Continue the rest of her medical regimen. Will follow her heart rate and depending on that, adjustment of her beta niall dose will be done. Depending on her progress, further recommendations will be made. MMODL / IJN: [id number] /
[2021-07-04] MEDS: HYDROmorphone 1 MG/ML 1 ML SYRINGE IVP PRN (12:56)
[2021-07-04 13:32] VITALS: BMI 32.5
--- NOTE | 2021-07-04 13:55 | P.PN ---
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 Chronic stable medical conditions include coronary artery disease with stent, some mild right-sided weakness from prior stroke, hypertension, hyperlipidemia, obstructive sleep apnea uses CPAP machine, TB in 1985, hiatal hernia, surgery for thoracic aortic aneurysm, sleeve gastrectomy in [address] Hamilton. Home oxygen 4 L Patient presented to the ER with some right-sided and right posterior pain. Worse with deep breathing. No trauma. More short of breath than baseline. No fever and chills. Some baseline cough. Appetite is fair.. Patient found to be in the ER started on IV heparin. Pulmonary was consulted. Patient's grandson at the bedside. Patient is vaccinated for COVID 19. July 08: ICU: Last night patient developed right-sided pneumothorax in the ER. Thora-vent was placed. Followed by chest tube. Patient moved to the ICU. Went to A. fib with rapid ventricular rate. Today started IV amiodarone. Remains on IV heparin. Patient's grandson and his mother at the bedside. Short of breath. Tired. June 29: ICU: Thora-vent.. Short of breath. A. fib with rapid ventricular rate. Back on IV amiodarone. Had been held. Tired. Taking small amounts. ensure ordered. FiO2 increased to 15 L June 30: ICU: Thora-vent is capped. Short of breath. Patient yesterday went back in sinus rhythm. Then back into A. fib with rapid ventricular rate. Put back on IV amiodarone. Patient's daughter was out of town at the bedside. She had talked to the patient and felt the patient was not sure about the CODE STATUS. So we will going to revert the patient to full code. I did ask her to discuss with the patient and let us know. No refills DO NOT RESUSCITATE will be appropriate but he wanted the patient and the daughter decided. Later the patient came back and informed be that she discussed with the patient again and patient was to remain DO NOT RESUSCITATE. Decreased oral intake. On 15 L of oxygen. Started on eliquis. IV heparin discontinued. July 01: ICU: Thora-vent capped. A bit less short of breath. Eating little. In sinus rhythm. IV amiodarone drip. Her daughter the bedside. Ensure ordered July 02: ICU: Thora-vent remains. Remains on 15 L of nasal cannula. Tired. Daughter the bedside. Eating small amounts. Including some Ensure. Remains in sinus rhythm. IV amiodarone changed over to by mouth amiodarone. Tired July 03: ICU: Thora-vent capped. Sitting up in a chair. FiO2 down to 5 L. Eating some. Sr. the bedside. Remains in sinus rhythm. Breathing better. July 04: ICU: Propped up in bed. Eating some. Daughter present. Remains in sinus rhythm. Appears more relaxed. On nasal cannula. Review of systems: Was done for constitutional, cardiovascular, GI, pulmonary. relevant finding as above Active Medications Acetaminophen (Acetaminophen Tab 325 Mg Tab) 650 mg PO Q6HR PRN PRN Reason: Mild Pain or Fever > 100.5 Last Admin: 07/03/21 11:03 Dose: 650 mg Documented by: Al Hydroxide/Mg Hydroxide (Mag Hydrox/Al Hydrox/Simeth 30 Ml Cup) 15 ml PO Q6HR PRN PRN Reason: Indigestion Albuterol Sulfate (Albuterol Nebulized 2.5 Mg/3 Ml) 2.5 mg INHALATION RT-QID PRN PRN Reason: Shortness Of Breath Albuterol/Ipratropium (Ipratropium-Albuterol 3 Ml Neb) 3 ml INHALATION RT-QID [facility] Last Admin: 07/04/21 11:48 Dose: Not Given Documented by: Amiodarone HCl (Amiodarone 200 Mg Tab) 200 mg PO BID [facility] Last Admin: 07/04/21 08:48 Dose: 200 mg Documented by: Apixaban (Apixaban 5 Mg Tab) 10 mg PO BID [facility]; Protocol Stop: 07/05/21 12:29 Last Admin: 07/04/21 08:48 Dose: 10 mg Documented by: Budesonide (Budesonide 1 Mg/2 Ml Nebu) 1 mg INHALATION RT-BID [facility] Last Admin: 07/04/21 07:39 Dose: 1 mg Documented by: Calcium Carbonate/Glycine (Calcium Carbonate 500 Mg Chewable) 1,000 mg PO Q4HR PRN PRN Reason: Dyspepsia Formoterol Fumarate (Formoterol Fumarate 20 Mcg/2 Ml Nebu) 20 mcg INHALATION RT-BID [facility] Last Admin: 07/04/21 07:39 Dose: 20 mcg Documented by: Furosemide (Furosemide 10 Mg/Ml 2 Ml Vial) 20 mg IV Q12HR [facility] Hydromorphone HCl (Hydromorphone 1 Mg/Ml 1 Ml Syringe) 1 mg IVP Q6HR PRN PRN Reason: Pain Last Admin: 07/04/21 12:56 Dose: 1 mg Documented by: Sodium Chloride (Saline 0.9%) 500 mls @ 20 mls/hr IV .Q24H [facility] Last Admin: 07/03/21 16:36 Dose: 20 mls/hr Documented by: Cefepime HCl 2 gm/ Sodium (Chloride) 100 mls @ 25 mls/hr IVPB Q8HR [facility] Last Admin: 07/04/21 10:38 Dose: 25 mls/hr Documented by: Lactulose (Lactulose 20 Gm/30 Ml Cup) 20 gm PO DAILY PRN PRN Reason: Constipation Melatonin (Melatonin 3 Mg Tablet) 3 mg PO HS PRN PRN Reason: Insomnia Methylprednisolone Sodium Succinate (Methylprednisolone Sod Succi 40 Mg/Ml 1 Ml Vial) 40 mg IV Q8HR [facility] Last Admin: 07/04/21 08:48 Dose: 40 mg Documented by: Metoprolol Tartrate (Metoprolol Tartrate 50 Mg Tab) 50 mg PO TID [facility] Last Admin: 07/04/21 08:48 Dose: 50 mg Documented by: Miscellaneous Information (Potassium Replacement Protocol 1 Each Misc) 1 each MISCELLANE DAILY PRN; Protocol PRN Reason: Per Protocol Miscellaneous Information (Magnesium Replacement Protocol 1 Each Misc) 1 each MISCELLANE DAILY PRN; Protocol PRN Reason: Per Protocol Multi-Ingred Cream/Lotion/Oil/Oint (Hydrophilic Cream 180 Gm Tube) 1 applic TOPICAL DAILY [facility]; Protocol Last Admin: 07/04/21 08:51 Dose: 1 applic Documented by: Naloxone HCl (Naloxone 0.4 Mg/Ml 1 Ml Vial) 0.2 mg IV Q2M PRN PRN Reason: Opioid Reversal Ondansetron HCl (Ondansetron 4 Mg/2 Ml Vial) 4 mg IVP Q8HR PRN PRN Reason: Nausea And Vomiting Last Admin: 06/28/21 10:31 Dose: 4 mg Documented by: Pantoprazole Sodium (Pantoprazole 40 Mg Tablet) 40 mg PO DAILY [facility] Last Admin: 07/04/21 08:48 Dose: 40 mg Documented by: Sodium Bicarbonate (Sodium Bicarbonate Tab 650 Mg Tab) 650 mg PO TID [facility] Last Admin: 07/04/21 08:48 Dose: 650 mg Documented by: Past medical history to include: Coronary artery disease with stent, COPD, stroke with some mild right-sided weakness, hyperlipidemia, hypertension, obstructive sleep apnea uses CPAP, TB 1985, hiatal hernia, sleeve gastrectomy in 2018, surgery for thoracic aortic aneurysm, 4 L of oxygen at home Social history: Started smoking age of 15 stopped in 2011. One pack a day. Alcohol occasionally. Lives with her grandson. Occasionally uses a cane or a walker. Family history: [place], pacemaker, COPD Physical examination: VITAL SIGNS: 97.8, 16, 20, 1:30/87, 93% on nasal cannula GENERAL: Propped up in bed, appears more relaxed EYES: Pupils equal. Conjunctiva normal. HEENT: External appearance of nose and ears normal, oral cavity grossly normal. NECK: JVD not raised; masses not palpable. HEART: First and second heart sounds are normal; mild edema in the left lower extremity LUNGS: Respiratory rate increased, decreased breath sounds. ABDOMEN: Soft, nontender, liver spleen not palpable, no masses palpable. PSYCH: Alert and oriented x3; mood and affect normal NEUROLOGICAL: Cranial nerves grossly intact; no facial asymmetry, mild right hemiparesis INVESTIGATIONS, reviewed in the clinical context: July 04: WBC 21.6 hemoglobin 12 sodium 135 potassium 3.7 creatinine 0.53 July 03: WBC 24.6 hemoglobin 13.1 progression 3. 4 repeat 3.8 creatinine 0.44 July 02: WBC 19.2 hemoglobin 13.2 sodium 132 potassium 3.7 creatinine 0.39 July 01: White count 12.5 hemoglobin 12.2 potassium 3.4 creatinine 0.51 June 30: White count 7.8 hemoglobin 12 platelets 149, sodium 126 potassium 4.2 creatinine 0.5 to 2-D echocardiogram: EF 50-55% June 28: White count 3.9 hemoglobin 13.1 platelets 126 sodium 135 potassium 3 when necessary 24 crit and 0.7 to White count 16.2 hemoglobin 14.9 platelets 212 d-dimer 23.3 sodium 137 potassium 3 BUN 28 creatinine 1.14 Troponin I 0.508 proBNP 688 Coronavirus [PCR] not detected EKG tracing personally reviewed by me-normal sinus rhythm. Flipped T waves. The anterolateral leads. PVC. Computed tomography scan of the chest: Aortic stent. Large pneumatocele is in the posterior right lung. Acute PE in the right middle and lower lobe arteries secondary intensity branches. Right lower lobe consolidation and/or mass. Chest x-ray film personally reviewed by me-right basilar infiltrate, aortic graft Assessment and plan: -Acute PE in the right middle and lower lobe arteries and secondary branches, IV heparin. Changed to eliquis. -Probable right basilar pneumonia suspected gram-negative organism IV cefepime -Paroxysmal atrial fibrillation with a rapid ventricular rate upon presentation: Currently sinus rhythm IV amiodarone drip. Changed to by mouth amiodarone -IV heparin monitoring: Discontinued Follow PTT -Spontaneous pneumothorax: Improved Thora-vent, capped-removed -Chronic hypoxic respiratory failure from COPD On home oxygen 4 -Acute hypoxic respiratory failure from PE: Better Oxygen supplementation. FiO2 5 liters -Acute severe COPD exacerbation in an ex-smoker-: Slow to respond on bronchodilators, inhaled steroids. Long-acting beta agonist. -Coronary artery disease with stent Lopressor, -Mild right hemiparesis from prior stroke -Hyperlipidemia, -Hypokalemia Replace potassium -Hyponatremia Encourage oral intake -Essential hypertension, amlodipine 10 mg daily, Lopressor 25 mg a day -Obstructive sleep apnea uses CPAP , continue the same -Hiatal hernia -History of sleeve gastrectomy -DO NOT RESUSCITATE IV cefepime resumed by pulmonary. Other medications to continue. Patient's daughter wishes to take the patient down to [place]. We did discuss that patient best going to [facility] depending how she does then they can discuss her moving to [place].
[2021-07-04] MEDS: SODIUM CHLORIDE 0.9% 500 ML 500 ML IV SCH (16:43)
[2021-07-05] MEDS: IPRATROPIUM-ALBUTEROL 3 ML NEB INHALATION SCH ×4 (08:37→20:13)
[2021-07-05] MEDS: FORMOTEROL FUMARATE 20 MCG/2 ML NEBU INHALATION SCH ×2 (08:37→20:13)
[2021-07-05] MEDS: BUDESONIDE 1 MG/2 ML NEBU INHALATION SCH ×2 (08:37→20:13)
[2021-07-05] MEDS: HYDROPHILIC CREAM 180 GM TUBE TOPICAL SCH (09:01)
[2021-07-05] MEDS: FUROSEMIDE 10 MG/ML 2 ML VIAL IV SCH (09:02)
[2021-07-05] MEDS: methylPREDNISolone SOD SUCCI 40 MG/ML 1 ML VIAL IV SCH (09:02)
[2021-07-05] MEDS: CEFEPIME 2 GM in SODIUM CHLORIDE 0.9% 100 ML IVPB SCH ×3 (09:02→23:04)
[2021-07-05] MEDS: SODIUM BICARBONATE TAB 650 MG TAB PO SCH ×3 (09:03→20:05)
[2021-07-05] MEDS: APIXABAN 5 MG TAB PO SCH ×3 (09:03→20:05)
[2021-07-05] MEDS: PANTOPRAZOLE 40 MG TABLET PO SCH (09:03)
[2021-07-05] MEDS: AMIODARONE 200 MG TAB PO SCH ×2 (09:03→20:05)
[2021-07-05] MEDS: METOPROLOL TARTRATE 50 MG TAB PO SCH ×3 (09:03→20:04)
--- NOTE | 2021-07-05 13:24 | P.PN ---
Subjective Progress Note Date: 07/05/21 Shortness of breath On 07/03/2001 patient seen in follow-up in the intensive care unit, she is awake and alert, in no acute distress, she states her breathing is improving, she is down to 8 L of oxygen on today's exam, she had previously been on 12 L. Pulse ox on 8 L is 91-92%, she did not require BiPAP support last night, she does wear a CPAP device at home on a nightly basis. Lung sounds reveal diffuse rhonchi. She needs quite a bit of encouragement to keep working on the incentive spirometer, she is able to achieve 500-750 on it today. No complaint of chest discomfort, no hemoptysis. Patient is being treated for pseudomonal bacteremia, she remains on cefepime. She is on D5 half-normal seen at a rate of 20 ML per hour, she is on nebulized bronchodilators, she is on IV Lasix at 20 mg every 8 hours, she is in -2.3 L net fluid balance over the last 24 hours, today's chest x-ray findings show increasing opacification in the right upper lobe consolidation, and improvement of the right lower lobe infiltrate and left basilar treatment. His labs have been reviewed, with blood cell count is 24.6, hemoglobin is 13.1, sodium is 134, potassium is 3.4, BUN was 17 creatinine was 0.44. Overall patient is still quite weak, short of breath with any exertion, she has been bedbound for the most part. Otherwise hemodynamically stable, not requiring any norepinephrine. No pneumothorax on today's exam, her right-sided thoravent was removed yesterday, patient had a run of A. fib, currently in sinus mechanism, she is on Eliquis, and oral amiodarone. She is also on Lopressor 50 mg 3 times daily On 07/04/2021 patient seen in follow-up in the intensive care unit. Patient continues on BiPAP support at 12 and 6 and FiO2 of 40%. Does not appear to be in any acute distress. Earlier patient was satting 98%, and her FiO2 has been dropped from 60% down to 40%. Denies any specific complaints, she's been afebrile, breathing is nonlabored. Today's chest x-ray has been reviewed showing increased interstitium, underlying emphysema. Today's labs have been reviewed, white blood cell count is improving and is down to 21.6, hemoglobin is 12, serum sodium is 135, the rest of the electrolytes are unremarkable, BUN is 30 creatinine 0.53. Patient continues on IV diuretics 20 mg every 8 hours, she is in -2.3 L or last 24 hours, with a total urine output of 2.9 L, her oxygenation has significantly improved with diuresis. Her FiO2 is currently down to 40%, breathing easier, patient also remains on antibiotics that were transitioned to oral Omnicef. Blood cultures were positive for pseudomonas aeruginosa. Yesterday we sent follow-up blood cultures and the results are pending right now. Vital signs have been stable. Patient continues on bronchodilators and IV Solu-Medrol 40 mg every 8 hours. On 07/05/2021 patient seen in follow-up on medical surgical floor, she is currently on 5 L of oxygen, she is breathing comfortably, she has walked to the bathroom with a walker and one person limited assist, she tolerated activity well, did not require BiPAP support last night. Breathing comfortably, lung sounds reveal mild wheezes bilateral, diminished breath sounds over the right l tong, but air entry was noted bilaterally. No complaints of chest pain, only occasional cough, nonproductive. Patient continues on IV diuretics at 20 mg twice daily, and she continues on IV Solu-Medrol and nebulized bronchodilators and cefepime for pseudomonal bacteremia, follow-up blood cultures from 07/03/2021 have shown no growth at the 48 hour clark, vital signs have been stable no fever or chills, no altered mentation. Bowman catheter remains in place, and patient is maintaining negative fluid balance. Follow-up chest x-ray is pending, no new labs from today. Pro-calcitonin level at 0.47 on today's labs. Objective - Vital Signs Vital signs: Vital Signs Temp 97.9 F 07/05/21 06:49 Pulse 72 07/05/21 12:43 Resp 17 07/05/21 06:49 BP 159/79 07/05/21 06:49 Pulse Ox 98 07/05/21 06:49 Intake & Output 07/04/21 07/05/21 07/05/21 18:59 06:59 18:59 Intake Total 1620 Output Total 925 1500 Balance 695 -1500 Weight 80.7 kg Intake: IV 100 Cefepime 2 gm In Sodium 100 Chloride 0.9% 100 ml @ 25 mls/hr IVPB Q8H [facility] Rx#: [id number] Intake, IV Titration 100 Amount Sodium Chloride 0.9% 500 100 ml 500 ml @ 20 mls/hr IV .Q24H [facility] Rx#:[id number] Oral 1420 Output: Urine 925 1500 Other: Voiding Method Indwelling Catheter Indwelling Catheter # Voids 100 - Exam GENERAL EXAM: Alert, very pleasant, 71-year-old white female, generally weak, 5 L of oxygen, breathing comfortably in no apparent distress. HEAD: Normocephalic/atraumatic. EYES: Normal reaction of pupils, equal size. Conjunctiva pink, sclera white. NOSE: Clear with pink turbinates. THROAT: No erythema or exudates. NECK: No masses, no JVD, no thyroid enlargement, no adenopathy. CHEST: No chest wall deformity. Symmetrical expansion. LUNGS: Equal air entry with diffuse rhonchi CVS: Regular rate and rhythm, normal S1 and S2, no gallops, no murmurs, no rubs ABDOMEN: Soft, nontender. No hepatosplenomegaly, normal bowel sounds, no guarding or rigidity. EXTREMITIES: No clubbing, no edema, no cyanosis, 2+ pulses and upper and lower extremities. MUSCULOSKELETAL: Muscle strength and tone normal. SPINE: No scoliosis or deformity SKIN: No rashes CENTRAL NERVOUS SYSTEM: Alert and oriented -3. No focal deficits, tone is normal in all 4 extremities. PSYCHIATRIC: Alert and oriented -3. Appropriate affect. Intact judgment and insight. - Labs CBC & Chem 7: 07/04/21 02:55 07/04/21 02:55 Labs: Abnormal Lab Results - Last 24 Hours (Table) 07/05/21 Range/Units 05:34 Procalcitonin 0.47 H (0.02-0.09) ng/mL Microbiology - Last 24 Hours (Table) 07/03/21 10:24 Blood Culture - Preliminary Blood No Growth after 48 hours 07/03/21 10:15 Blood Culture - Preliminary Blood No Growth after 48 hours Assessment and Plan Plan: Assessment: #1. Acute on chronic hypoxic respiratory failure, multifactorial, related to possible right lower lobe pseudomonal pneumonia, bacteremia, acute pulmonary embolism, and spontaneous right-sided pneumothorax #2. Acute sepsis and bacteremia secondary to pseudomonas aeruginosa, currently on cefepime, follow blood cultures from 07/03/2021 have shown no growth #3. Acute pulmonary embolism without ventricular strain, on Eliquis #4. Acute exacerbation of COPD #5. Acute spontaneous right-sided pneumothorax, status post smallbore chest tube placement and subsequent removal, follow-up chest x-ray shows no evidence of pneumothorax #6. New onset atrial fibrillation, patient is on amiodarone and Lopressor and Eliquis, currently in sinus mechanism #7. History of underlying coronary artery disease #8. History of endovascular aortic repair #9. Right lower lobe collapse without evidence of pleural effusion based on the limited reported by the radiologist regarding the ultrasound Plan: Follow blood cultures have been negative, Patient continues on cefepime Breathing is improving, she looks much more awake, she is able to tolerate ambulation, Wean FiO2 to keep O2 sats ration is at or above 88-90% We'll give switched to oral prednisone DC the IV Solu-Medrol Continue nebulized bronchodilators We'll obtain basic labs today, including CBC and BMP, follow-up chest x-ray Switch IV Lasix to oral Lasix 20 mg twice daily We'll continue to follow May DC BiPAP Encourage deep breathing and coughing I performed a history & physical examination of the patient and discussed their management with my nurse practitioner, Jacque Arvizu. I reviewed the nurse practitioner's note and agree with the documented findings and plan of care. Lung sounds are positive for diffuse rhonchi throughout the lung aden. The findings and the impression was discussed with the patient. I attest to the documentation by the nurse practitioner. Time with Patient: Less than 30
--- NOTE | 2021-07-05 13:44 | P.PN ---
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 She has a past medical history significant for coronary artery disease with previous PCI, hypertension, endovascular aortic aneurysm repair, and COPD on home oxygen. Patient is admitted to the hospital secondary to pneumonia, acute pulmonary embolism, and acute spontaneous pneumothorax. Patient was also found to have new onset atrial fibrillation. Patient examined at the bedside today. She denies chest pain or pressure. Telemetry reveals sinus mechanism with a heart rate in the 60s. Echocardiogram completed revealing ejection fraction 50-55%, mild mitral regurgitation, and mild tricuspid regurgitation. PHYSICAL EXAM: VITAL SIGNS: Reviewed. GENERAL: Well-developed in no acute distress. NECK: Supple. No JVD or thyromegaly LUNGS: Respirations even and unlabored. Lungs diminished to auscultation bilaterally with expiratory wheezing. HEART: Regular rate and rhythm. S1 and S2 heard. Systolic murmur noted. EXTREMITIES: Normal range of motion. No clubbing or cyanosis. Peripheral pulses intact. No lower extremity edema ASSESSMENT: Acute on chronic hypoxic respiratory failure Acute exacerbation of COPD Possible right lower lobe pneumonia Acute pulmonary embolism Spontaneous right-sided pneumothorax Acute sepsis and bacteremia, blood cultures positive for pseudomonas aeruginosa New-onset paroxysmal atrial fibrillation, currently maintaining sinus mechanism Coronary artery disease with previous stenting History of endovascular aortic aneurysm repair PLAN: Continue current cardiac medications Continue anticoagulation with Eliquis Continue telemetry monitoring Further recommendations pending patient's course Nurse practitioner note has been reviewed by physician. Signing provider agrees with the documented findings, assessment, and plan of care. Objective - Vital Signs Vital signs: Vital Signs Temp 97.9 F 07/05/21 06:49 Pulse 70 07/05/21 09:06 Resp 17 07/05/21 06:49 BP 159/79 07/05/21 06:49 Pulse Ox 98 07/05/21 06:49 Intake & Output 07/04/21 07/05/21 07/05/21 18:59 06:59 18:59 Intake Total 1620 Output Total 925 1500 Balance 695 -1500 Weight 80.7 kg Intake: IV 100 Cefepime 2 gm In Sodium 100 Chloride 0.9% 100 ml @ 25 mls/hr IVPB Q8H [facility] Rx#: [id number] Intake, IV Titration 100 Amount Sodium Chloride 0.9% 500 100 ml 500 ml @ 20 mls/hr IV .Q24H [facility] Rx#:[id number] Oral 1420 Output: Urine 925 1500 Other: Voiding Method Indwelling Catheter Indwelling Catheter # Voids 100 - Labs CBC & Chem 7: 07/04/21 02:55 07/04/21 02:55 Labs: Abnormal Lab Results - Last 24 Hours (Table) 07/05/21 Range/Units 05:34 Procalcitonin 0.47 H (0.02-0.09) ng/mL Microbiology - Last 24 Hours (Table) 07/03/21 10:24 Blood Culture - Preliminary Blood No Growth after 24 hours 07/03/21 10:15 Blood Culture - Preliminary Blood No Growth after 24 hours
--- NOTE | 2021-07-05 13:58 | XR ---
EXAMINATION TYPE: XR chest 1V portable DATE OF EXAM: 07/05/2021 COMPARISON: 07/04/2021 HISTORY: Shortness of breath TECHNIQUE: Single frontal view of the chest is obtained. FINDINGS: Aortic aneurysm with stent graft noted. There appears to be a large area of mass or consol idation the right lung stable. Left lower lobe infiltrate stable. Underlying COPD suspected. No pneum othorax. Heart size stable. Small bilateral effusion suspected. Prominent bowel loops are seen in the upper abdomen. Correlate clinically. IMPRESSION: 1. Bilateral infiltrate stable. Underlying mass not excluded correlate clinically. 2. Aortic stent graft noted.
[2021-07-05 14:37] LABS: Basophils # (A) 0.1 k/uL (0-0.2); Basophils % (A) 1 %; Eosinophils % (A) 0 %; HCT 38.8 % (34.0-46.0); Hypochromasia Moderate; Lymphocytes # (A) 0.7 k/uL (1.0-4.8); Lymphocytes % (A) 3 %; MCH 31.2 pg (25.0-35.0); MCHC 30.8 g/dL (31.0-37.0); MCV 101.1 fL (80.0-100.0); Macrocytosis Slight; Monocytes # (A) 0.6 k/uL (0-1.0); Monocytes % (A) 3 %; Neutrophils # (A) 17.4 k/uL (1.3-7.7); Neutrophils % (A) 91 %; Platelet Count 306 k/uL (150-450); RBC 3.84 m/uL (3.80-5.40); RDW 13.9 % (11.5-15.5)
[2021-07-05 14:56] LABS: African American GFR (CKD) >90 (>60 ml/min/1.73 sqM); Blood Urea Nitrogen 32 mg/dL (7-17); Calcium 8.7 mg/dL (8.4-10.2); Carbon Dioxide 26 mmol/L (22-30); Chloride 100 mmol/L (98-107); Glucose 130 mg/dL (74-99); Non-African American GFR(CKD) >90 (>60 ml/min/1.73 sqM); Potassium 3.9 mmol/L (3.5-5.1)
[2021-07-05 15:00] LABS: Anion Gap 10 mmol/L; Sodium 136 mmol/L (137-145)
[2021-07-05] MEDS: FUROSEMIDE 20 MG TAB PO SCH (15:25)
[2021-07-05] MEDS: ACETAMINOPHEN TAB 325 MG TAB PO PRN ×2 (15:25→21:28)
--- NOTE | 2021-07-05 19:30 | P.PN ---
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 Chronic stable medical conditions include coronary artery disease with stent, some mild right-sided weakness from prior stroke, hypertension, hyperlipidemia, obstructive sleep apnea uses CPAP machine, TB in 1985, hiatal hernia, surgery for thoracic aortic aneurysm, sleeve gastrectomy [place] [address] Hamilton. Home oxygen 4 L Patient presented to the ER with some right-sided and right posterior pain. Worse with deep breathing. No trauma. More short of breath than baseline. No fever and chills. Some baseline cough. Appetite is fair.. Patient found to be in the ER started on IV heparin. Pulmonary was consulted. Patient's grandson at the bedside. Patient is vaccinated for COVID 19. July 08: ICU: Last night patient developed right-sided pneumothorax in the ER. Thora-vent was placed. Followed by chest tube. Patient moved to the ICU. Went to A. fib with rapid ventricular rate. Today started IV amiodarone. Remains on IV heparin. Patient's grandson and his mother at the bedside. Short of breath. Tired. June 29: ICU: Thora-vent.. Short of breath. A. fib with rapid ventricular rate. Back on IV amiodarone. Had been held. Tired. Taking small amounts. ensure ordered. FiO2 increased to 15 L June 30: ICU: Thora-vent is capped. Short of breath. Patient yesterday went back in sinus rhythm. Then back into A. fib with rapid ventricular rate. Put back on IV amiodarone. Patient's daughter was out of town at the bedside. She had talked to the patient and felt the patient was not sure about the CODE STATUS. So we will going to revert the patient to full code. I did ask her to discuss with the patient and let us know. No refills DO NOT RESUSCITATE will be appropriate but he wanted the patient and the daughter decided. Later the patient came back and informed be that she discussed with the patient again and patient was to remain DO NOT RESUSCITATE. Decreased oral intake. On 15 L of oxygen. Started on eliquis. IV heparin discontinued. July 01: ICU: Thora-vent capped. A bit less short of breath. Eating little. In sinus rhythm. IV amiodarone drip. Her daughter the bedside. Ensure ordered July 02: ICU: Thora-vent remains. Remains on 15 L of nasal cannula. Tired. Daughter the bedside. Eating small amounts. Including some Ensure. Remains in sinus rhythm. IV amiodarone changed over to by mouth amiodarone. Tired July 03: ICU: Thora-vent capped. Sitting up in a chair. FiO2 down to 5 L. Eating some. Sr. the bedside. Remains in sinus rhythm. Breathing better. July 04: ICU: Propped up in bed. Eating some. Daughter present. Remains in sinus rhythm. Appears more relaxed. On nasal cannula. July 05: Moved to the medical floor. Some shortness of breath. Intermittent coughing. Eating about 50%.. 5 L oxygen Changed to by mouth prednisone. Review of systems: Was done for constitutional, cardiovascular, GI, pulmonary. relevant finding as above Active Medications Acetaminophen (Acetaminophen Tab 325 Mg Tab) 650 mg PO Q6HR PRN PRN Reason: Mild Pain or Fever > 100.5 Last Admin: 07/05/21 15:25 Dose: 650 mg Documented by: Al Hydroxide/Mg Hydroxide (Mag Hydrox/Al Hydrox/Simeth 30 Ml Cup) 15 ml PO Q6HR PRN PRN Reason: Indigestion Albuterol Sulfate (Albuterol Nebulized 2.5 Mg/3 Ml) 2.5 mg INHALATION RT-QID PRN PRN Reason: Shortness Of Breath Albuterol/Ipratropium (Ipratropium-Albuterol 3 Ml Neb) 3 ml INHALATION RT-QID [facility] Last Admin: 07/05/21 17:11 Dose: 3 ml Documented by: Amiodarone HCl (Amiodarone 200 Mg Tab) 200 mg PO BID [facility] Last Admin: 07/05/21 09:03 Dose: 200 mg Documented by: Apixaban (Apixaban 5 Mg Tab) 5 mg PO BID [facility]; Protocol Last Admin: 07/05/21 15:26 Dose: 5 mg Documented by: Budesonide (Budesonide 1 Mg/2 Ml Nebu) 1 mg INHALATION RT-BID [facility] Last Admin: 07/05/21 08:37 Dose: 1 mg Documented by: Calcium Carbonate/Glycine (Calcium Carbonate 500 Mg Chewable) 1,000 mg PO Q4HR PRN PRN Reason: Dyspepsia Formoterol Fumarate (Formoterol Fumarate 20 Mcg/2 Ml Nebu) 20 mcg INHALATION RT-BID [facility] Last Admin: 07/05/21 08:37 Dose: 20 mcg Documented by: Furosemide (Furosemide 20 Mg Tab) 20 mg PO BID@0900,1600 [facility] Last Admin: 07/05/21 15:25 Dose: 20 mg Documented by: Hydromorphone HCl (Hydromorphone 1 Mg/Ml 1 Ml Syringe) 1 mg IVP Q6HR PRN PRN Reason: Pain Last Admin: 07/04/21 12:56 Dose: 1 mg Documented by: Sodium Chloride (Saline 0.9%) 500 mls @ 20 mls/hr IV .Q24H [facility] Last Admin: 07/04/21 16:43 Dose: 20 mls/hr Documented by: Cefepime HCl 2 gm/ Sodium (Chloride) 100 mls @ 25 mls/hr IVPB Q8HR [facility] Last Admin: 07/05/21 15:25 Dose: 25 mls/hr Documented by: Lactulose (Lactulose 20 Gm/30 Ml Cup) 20 gm PO DAILY PRN PRN Reason: Constipation Melatonin (Melatonin 3 Mg Tablet) 3 mg PO HS PRN PRN Reason: Insomnia Metoprolol Tartrate (Metoprolol Tartrate 50 Mg Tab) 50 mg PO TID [facility] Last Admin: 07/05/21 15:25 Dose: 50 mg Documented by: Miscellaneous Information (Potassium Replacement Protocol 1 Each Misc) 1 each MISCELLANE DAILY PRN; Protocol PRN Reason: Per Protocol Miscellaneous Information (Magnesium Replacement Protocol 1 Each Misc) 1 each MISCELLANE DAILY PRN; Protocol PRN Reason: Per Protocol Multi-Ingred Cream/Lotion/Oil/Oint (Hydrophilic Cream 180 Gm Tube) 1 applic TOPICAL DAILY [facility]; Protocol Last Admin: 07/05/21 09:01 Dose: 1 applic Documented by: Naloxone HCl (Naloxone 0.4 Mg/Ml 1 Ml Vial) 0.2 mg IV Q2M PRN PRN Reason: Opioid Reversal Ondansetron HCl (Ondansetron 4 Mg/2 Ml Vial) 4 mg IVP Q8HR PRN PRN Reason: Nausea And Vomiting Last Admin: 06/28/21 10:31 Dose: 4 mg Documented by: Pantoprazole Sodium (Pantoprazole 40 Mg Tablet) 40 mg PO DAILY [facility] Last Admin: 07/05/21 09:03 Dose: 40 mg Documented by: Prednisone (Prednisone 20 Mg Tab) 40 mg PO DAILY [facility] Sodium Bicarbonate (Sodium Bicarbonate Tab 650 Mg Tab) 650 mg PO TID [facility] Last Admin: 07/05/21 15:26 Dose: 650 mg Documented by: Past medical history to include: Coronary artery disease with stent, COPD, stroke with some mild right-sided weakness, hyperlipidemia, hypertension, obstructive sleep apnea uses CPAP, TB 1985, hiatal hernia, sleeve gastrectomy in 2017, surgery for thoracic aortic aneurysm, 4 L of oxygen at home Social history: Started smoking age of 15 stopped in 2011. One pack a day. Alcohol occasionally. Lives with her grandson. Occasionally uses a cane or a walker. Family history: [place], pacemaker, COPD Physical examination: VITAL SIGNS: 97.9, 63, 17, 159 with 79, 98% GENERAL: Propped up in bed, appears more relaxed EYES: Pupils equal. Conjunctiva normal. HEENT: External appearance of nose and ears normal, oral cavity grossly normal. NECK: JVD not raised; masses not palpable. HEART: First and second heart sounds are normal; mild edema in the left lower extremity LUNGS: Respiratory rate increased, decreased breath sounds. ABDOMEN: Soft, nontender, liver spleen not palpable, no masses palpable. PSYCH: Alert and oriented x3; mood and affect normal NEUROLOGICAL: Cranial nerves grossly intact; no facial asymmetry, mild right hemiparesis INVESTIGATIONS, reviewed in the clinical context: July 05: White count 19 hemoglobin 12 potassium 3.9 creatinine 0.55 July 04: WBC 21.6 hemoglobin 12 sodium 135 potassium 3.7 creatinine 0.53 July 03: WBC 24.6 hemoglobin 13.1 progression 3. 4 repeat 3.8 creatinine 0.44 July 02: WBC 19.2 hemoglobin 13.2 sodium 132 potassium 3.7 creatinine 0.39 July 01: White count 12.5 hemoglobin 12.2 potassium 3.4 creatinine 0.51 June 30: White count 7.8 hemoglobin 12 platelets 149, sodium 126 potassium 4.2 creatinine 0.5 to 2-D echocardiogram: EF 50-55% June 28: White count 3.9 hemoglobin 13.1 platelets 126 sodium 135 potassium 3 when necessary 24 crit and 0.7 to White count 16.2 hemoglobin 14.9 platelets 212 d-dimer 23.3 sodium 137 potassium 3 BUN 28 creatinine 1.14 Troponin I 0.508 proBNP 688 Coronavirus [PCR] not detected EKG tracing personally reviewed by me-normal sinus rhythm. Flipped T waves. The anterolateral leads. PVC. Computed tomography scan of the chest: Aortic stent. Large pneumatocele is in the posterior right lung. Acute PE in the right middle and lower lobe arteries secondary intensity branches. Right lower lobe consolidation and/or mass. Chest x-ray film personally reviewed by me-right basilar infiltrate, aortic graft Assessment and plan: -Acute PE in the right middle and lower lobe arteries and secondary branches, eliquis. -Probable right basilar pneumonia suspected gram-negative organism IV cefepime -Paroxysmal atrial fibrillation with a rapid ventricular rate upon presentation: Currently sinus rhythm Amiodarone 200 mg twice a day. Lopressor 50 mg 3 times a day -IV heparin monitoring: Discontinued Follow PTT -Spontaneous pneumothorax: Improved Thora-vent, capped-removed -Chronic hypoxic respiratory failure from COPD On home oxygen 4 -Acute hypoxic respiratory failure from PE: Better Oxygen supplementation. FiO2 5 liters -Acute severe COPD exacerbation in an ex-smoker-: Slow to respond on bronchodilators, inhaled steroids. Long-acting beta agonist. -Coronary artery disease with stent Lopressor, -Mild right hemiparesis from prior stroke -Hyperlipidemia, -Hypokalemia Replace potassium -Hyponatremia Encourage oral intake -Essential hypertension, amlodipine 10 mg daily, Lopressor 50 mg 3 times a day -Obstructive sleep apnea uses CPAP , continue the same -Hiatal hernia -History of sleeve gastrectomy -DO NOT RESUSCITATE IV cefepime. Oral prednisone. Eliquis. Doing better. Possible discharge tomorrow.
[2021-07-06] MEDS: SODIUM CHLORIDE 0.9% 500 ML 500 ML IV SCH ×2 (00:26→15:25)
[2021-07-06] MEDS: CEFEPIME 2 GM in SODIUM CHLORIDE 0.9% 100 ML IVPB SCH ×2 (08:11→17:24)
[2021-07-06] MEDS: FUROSEMIDE 20 MG TAB PO SCH ×2 (08:12→17:27)
[2021-07-06] MEDS: SODIUM BICARBONATE TAB 650 MG TAB PO SCH ×3 (08:12→21:43)
[2021-07-06] MEDS: METOPROLOL TARTRATE 50 MG TAB PO SCH ×3 (08:12→21:43)
[2021-07-06] MEDS: APIXABAN 5 MG TAB PO SCH ×2 (08:12→21:43)
[2021-07-06] MEDS: AMIODARONE 200 MG TAB PO SCH ×2 (08:12→21:43)
[2021-07-06] MEDS: PANTOPRAZOLE 40 MG TABLET PO SCH (08:12)
[2021-07-06] MEDS: predniSONE 20 MG TAB PO SCH (08:12)
[2021-07-06] MEDS: HYDROPHILIC CREAM 180 GM TUBE TOPICAL SCH (08:14)
--- NOTE | 2021-07-06 08:50 | XR ---
EXAMINATION TYPE: XR chest 1V portable DATE OF EXAM: 07/06/2021 Comparison: 07/05/2021 Clinical History: 71-year-old female pneumonia, follow-up pneumothorax Findings: Heart upper limits of normal in size. Endovascular stent graft repair of the descending thoracic aort a. Focal consolidation right midlung and left base and to lesser extent in the periphery of the right base persist. Impression: 1. Stable focal opacities right midlung and left greater than right lung bases. The right mid lung op acity could represent a mass or loculated pleural fluid/empyema. Clinically correlate. 2. Pneumothorax not clearly identified.
[2021-07-06 09:06] LABS: Basophils # (A) 0.04 X 10*3/uL (0.00-0.10); Basophils % (A) 0.2 %; Eosinophils # (A) 0.03 X 10*3/uL (0.04-0.35); Eosinophils % (A) 0.2 %; HCT 34.7 % (37.2-46.3); HGB 10.7 g/dL (12.0-15.0); Lymphocytes % (A) 11.8 %; MCH 29.7 pg (27.0-32.0); MCHC 30.8 g/dL (32.0-37.0); MCV 96.4 fL (80.0-97.0); Mean Platelet Volume 9.7 fL (9.5-12.2); Monocytes # (A) 0.78 X 10*3/uL (0.20-1.00); Monocytes % (A) 4.4 %; Neutrophils # (A) 13.93 X 10*3/uL (1.80-7.70); Neutrophils % (A) 78.5 %; Platelet Count 291 X 10*3/uL (140-440); RDW 13.8 % (11.5-14.5); WBC 17.75 X 10*3/uL (4.50-10.00)
[2021-07-06] MEDS: FORMOTEROL FUMARATE 20 MCG/2 ML NEBU INHALATION SCH ×2 (09:38→19:43)
[2021-07-06] MEDS: BUDESONIDE 1 MG/2 ML NEBU INHALATION SCH ×2 (09:38→19:43)
[2021-07-06] MEDS: IPRATROPIUM-ALBUTEROL 3 ML NEB INHALATION SCH ×4 (09:38→19:43)
[2021-07-06 10:12] LABS: African American GFR (CKD) 112.9 (60.0-200.0); Anion Gap 13.2 mmol/L (10.00-18.00); Blood Urea Nitrogen 28.5 mg/dL (9.0-27.0); Calcium 8.5 mg/dL (8.7-10.3); Carbon Dioxide 26.8 mmol/L (20.0-27.5); Non-African American GFR(CKD) 97.4 (60.0-200.0); Potassium 4.1 mmol/L (3.5-5.5)
--- NOTE | 2021-07-06 10:58 | P.PN ---
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 She has a past medical history significant for coronary artery disease with previous PCI, hypertension, endovascular aortic aneurysm repair, and COPD on home oxygen. Patient is admitted to the hospital secondary to pneumonia, acute pulmonary embolism, and acute spontaneous pneumothorax. Patient was also found to have new onset atrial fibrillation. Patient examined at the bedside today. She denies chest pain or pressure. Telemetry reveals sinus mechanism with a heart rate in the 60s. Echocardiogram completed revealing ejection fraction 50-55%, mild mitral regurgitation, and mild tricuspid regurgitation. 07/06/2021 Patient examined this morning at the bedside. Patient denies chest pain or pressure. Denies shortness of breath. She remains in sinus mechanism. Vital signs are stable. She remains on nasal cannula with oxygen saturations greater than 92%. PHYSICAL EXAM: VITAL SIGNS: Reviewed. GENERAL: Well-developed in no acute distress. NECK: Supple. No JVD or thyromegaly LUNGS: Respirations even and unlabored. Lungs diminished to auscultation bilaterally with some scattered rhonchi HEART: Regular rate and rhythm. S1 and S2 heard. Systolic murmur noted. EXTREMITIES: Normal range of motion. No clubbing or cyanosis. Peripheral pulses intact. No lower extremity edema ASSESSMENT: Acute on chronic hypoxic respiratory failure Acute exacerbation of COPD Possible right lower lobe pneumonia Acute pulmonary embolism Spontaneous right-sided pneumothorax Acute sepsis and bacteremia, blood cultures positive for pseudomonas aeruginosa New-onset paroxysmal atrial fibrillation, currently maintaining sinus mechanism Coronary artery disease with previous stenting History of endovascular aortic aneurysm repair PLAN: Continue current cardiac medications Continue anticoagulation with Eliquis Continue telemetry monitoring Patient is stable for discharge home today from a cardiac standpoint. She wishes to stay one more day in the hospital. Will defer decision to internal medicine. Nurse practitioner note has been reviewed by physician. Signing provider agrees with the documented findings, assessment, and plan of care. Objective - Vital Signs Vital signs: Vital Signs Temp 97.5 F L 07/06/21 08:00 Pulse 72 07/06/21 09:59 Resp 17 07/06/21 08:00 BP 118/73 07/06/21 08:00 Pulse Ox 95 07/06/21 08:00 Intake & Output 07/05/21 07/06/21 07/06/21 18:59 06:59 18:59 Output Total 1999 Balance -1999 - Output: Urine 1999 Straight 700 Other: Voiding Method Indwelling Catheter # Voids 0 - Labs CBC & Chem 7: 07/06/21 05:37 07/06/21 05:37 Labs: Abnormal Lab Results - Last 24 Hours (Table) 07/05/21 07/05/21 07/06/21 Range/Units 14:11 14:11 05:37 WBC 19.0 H 17.75 H (3.8-10.6) k/uL RBC 3.60 L (4.10-5.20) X 10*6/uL Hgb 10.7 L (12.0-15.0) g/dL Hct 34.7 L (37.2-46.3) % MCV 101.1 H (80.0-100.0) fL MCHC 30.8 L 30.8 L (31.0-37.0) g/dL Immature Gran # 0.87 H (0.00-0.04) X 10*3/uL Neutrophils # 17.4 H 13.93 H (1.3-7.7) k/uL Lymphocytes # 0.7 L (1.0-4.8) k/uL Eosinophils # 0.03 L (0.04-0.35) X 10*3/uL Sodium 136 L (137-145) mmol/L BUN 32 H (7-17) mg/dL Creatinine (0.6-1.5) mg/dL BUN/Creatinine Ratio (12.00-20.00) Ratio Glucose 130 H (74-99) mg/dL Calcium (8.7-10.3) mg/dL 07/06/21 Range/Units 05:37 WBC (3.8-10.6) k/uL RBC (4.10-5.20) X 10*6/uL Hgb (12.0-15.0) g/dL Hct (37.2-46.3) % MCV (80.0-100.0) fL MCHC (31.0-37.0) g/dL Immature Gran # (0.00-0.04) X 10*3/uL Neutrophils # (1.3-7.7) k/uL Lymphocytes # (1.0-4.8) k/uL Eosinophils # (0.04-0.35) X 10*3/uL Sodium (137-145) mmol/L BUN 28.5 H (7-17) mg/dL Creatinine 0.5 L (0.6-1.5) mg/dL BUN/Creatinine Ratio 57.00 H (12.00-20.00) Ratio Glucose (74-99) mg/dL Calcium 8.5 L (8.7-10.3) mg/dL Microbiology - Last 24 Hours (Table) 07/03/21 10:24 Blood Culture - Preliminary Blood No Growth after 48 hours 07/03/21 10:15 Blood Culture - Preliminary Blood No Growth after 48 hours
--- NOTE | 2021-07-06 13:59 | P.PN ---
Subjective Progress Note Date: 07/06/21 Shortness of breath On 07/03/2001 patient seen in follow-up in the intensive care unit, she is awake and alert, in no acute distress, she states her breathing is improving, she is down to 8 L of oxygen on today's exam, she had previously been on 12 L. Pulse ox on 8 L is 91-92%, she did not require BiPAP support last night, she does wear a CPAP device at home on a nightly basis. Lung sounds reveal diffuse rhonchi. She needs quite a bit of encouragement to keep working on the incentive spirometer, she is able to achieve 500-750 on it today. No complaint of chest discomfort, no hemoptysis. Patient is being treated for pseudomonal bacteremia, she remains on cefepime. She is on D5 half-normal seen at a rate of 20 ML per hour, she is on nebulized bronchodilators, she is on IV Lasix at 20 mg every 8 hours, she is in -2.3 L net fluid balance over the last 24 hours, today's chest x-ray findings show increasing opacification in the right upper lobe consolidation, and improvement of the right lower lobe infiltrate and left basilar treatment. His labs have been reviewed, with blood cell count is 24.6, hemoglobin is 13.1, sodium is 134, potassium is 3.4, BUN was 17 creatinine was 0.44. Overall patient is still quite weak, short of breath with any exertion, she has been bedbound for the most part. Otherwise hemodynamically stable, not requiring any norepinephrine. No pneumothorax on today's exam, her right-sided thoravent was removed yesterday, patient had a run of A. fib, currently in sinus mechanism, she is on Eliquis, and oral amiodarone. She is also on Lopressor 50 mg 3 times daily On 07/04/2021 patient seen in follow-up in the intensive care unit. Patient continues on BiPAP support at 12 and 6 and FiO2 of 40%. Does not appear to be in any acute distress. Earlier patient was satting 98%, and her FiO2 has been dropped from 60% down to 40%. Denies any specific complaints, she's been afebrile, breathing is nonlabored. Today's chest x-ray has been reviewed showing increased interstitium, underlying emphysema. Today's labs have been reviewed, white blood cell count is improving and is down to 21.6, hemoglobin is 12, serum sodium is 135, the rest of the electrolytes are unremarkable, BUN is 30 creatinine 0.53. Patient continues on IV diuretics 20 mg every 8 hours, she is in -2.3 L or last 24 hours, with a total urine output of 2.9 L, her oxygenation has significantly improved with diuresis. Her FiO2 is currently down to 40%, breathing easier, patient also remains on antibiotics that were transitioned to oral Omnicef. Blood cultures were positive for pseudomonas aeruginosa. Yesterday we sent follow-up blood cultures and the results are pending right now. Vital signs have been stable. Patient continues on bronchodilators and IV Solu-Medrol 40 mg every 8 hours. On 07/05/2021 patient seen in follow-up on medical surgical floor, she is currently on 5 L of oxygen, she is breathing comfortably, she has walked to the bathroom with a walker and one person limited assist, she tolerated activity well, did not require BiPAP support last night. Breathing comfortably, lung sounds reveal mild wheezes bilateral, diminished breath sounds over the right l tong, but air entry was noted bilaterally. No complaints of chest pain, only occasional cough, nonproductive. Patient continues on IV diuretics at 20 mg twice daily, and she continues on IV Solu-Medrol and nebulized bronchodilators and cefepime for pseudomonal bacteremia, follow-up blood cultures from 07/03/2021 have shown no growth at the 48 hour clark, vital signs have been stable no fever or chills, no altered mentation. Bowman catheter remains in place, and patient is maintaining negative fluid balance. Follow-up chest x-ray is pending, no new labs from today. Pro-calcitonin level at 0.47 on today's labs. On 07/06/2021 patient seen in follow-up on medical surgical floor. She is sitti ng up in the chair, she is getting ready to eat lunch, currently on 5 L of oxygen her pulse ox is 95%, she normally wears 3 L of oxygen on a regular basis at home, this can probably be weaned down further. Breathing comfortably, lung sounds reveal a few scattered rhonchi, no wheezing, she's been afebrile, vital signs have been stable, she has had no acute events overnight, she has been tolerating ambulation. She remains on Eliquis, she is on nebulized bronchodilators, she is on cefepime, and her follow-up blood cultures have shown no growth. She has been transitioned to oral prednisone. Patient is stable on her feet, she ambulates with limited assist and supervision from staff. Appetite is good, today's labs have been reviewed her white count continues to improve and is down to 17.7, hemoglobin is 10.7, electrolytes are within normal limits, BUN is 28 creatinine 0.5 Objective - Vital Signs Vital signs: Vital Signs Temp 97.5 F L 07/06/21 08:00 Pulse 72 07/06/21 12:28 Resp 17 07/06/21 08:00 BP 118/73 07/06/21 08:00 Pulse Ox 95 07/06/21 08:00 Intake & Output 07/05/21 07/06/21 07/06/21 18:59 06:59 18:59 Output Total 2000 700 Balance -2000 -700 Output: Urine 1999 700 Straight 700 Other: Voiding Method Indwelling Catheter # Voids 0 - Exam GENERAL EXAM: Alert, very pleasant, 71-year-old white female, generally weak, 5 L of oxygen, breathing comfortably in no apparent distress. HEAD: Normocephalic/atraumatic. EYES: Normal reaction of pupils, equal size. Conjunctiva pink, sclera white. NOSE: Clear with pink turbinates. THROAT: No erythema or exudates. NECK: No masses, no JVD, no thyroid enlargement, no adenopathy. CHEST: No chest wall deformity. Symmetrical expansion. LUNGS: Equal air entry with diffuse rhonchi CVS: Regular rate and rhythm, normal S1 and S2, no gallops, no murmurs, no rubs ABDOMEN: Soft, nontender. No hepatosplenomegaly, normal bowel sounds, no guarding or rigidity. EXTREMITIES: No clubbing, no edema, no cyanosis, 2+ pulses and upper and lower extremities. MUSCULOSKELETAL: Muscle strength and tone normal. SPINE: No scoliosis or deformity SKIN: No rashes CENTRAL NERVOUS SYSTEM: Alert and oriented -3. No focal deficits, tone is normal in all 4 extremities. PSYCHIATRIC: Alert and oriented -3. Appropriate affect. Intact judgment and insight. - Labs CBC & Chem 7: 07/06/21 05:37 07/06/21 05:37 Labs: Abnormal Lab Results - Last 24 Hours (Table) 07/05/21 07/05/21 07/06/21 Range/Units 14:11 14:11 05:37 WBC 19.0 H 17.75 H (3.8-10.6) k/uL RBC 3.60 L (4.10-5.20) X 10*6/uL Hgb 10.7 L (12.0-15.0) g/dL Hct 34.7 L (37.2-46.3) % MCV 101.1 H (80.0-100.0) fL MCHC 30.8 L 30.8 L (31.0-37.0) g/dL Immature Gran # 0.87 H (0.00-0.04) X 10*3/uL Neutrophils # 17.4 H 13.93 H (1.3-7.7) k/uL Lymphocytes # 0.7 L (1.0-4.8) k/uL Eosinophils # 0.03 L (0.04-0.35) X 10*3/uL Sodium 136 L (137-145) mmol/L BUN 32 H (7-17) mg/dL Creatinine (0.6-1.5) mg/dL BUN/Creatinine Ratio (12.00-20.00) Ratio Glucose 130 H (74-99) mg/dL Calcium (8.7-10.3) mg/dL 07/06/21 Range/Units 05:37 WBC (3.8-10.6) k/uL RBC (4.10-5.20) X 10*6/uL Hgb (12.0-15.0) g/dL Hct (37.2-46.3) % MCV (80.0-100.0) fL MCHC (31.0-37.0) g/dL Immature Gran # (0.00-0.04) X 10*3/uL Neutrophils # (1.3-7.7) k/uL Lymphocytes # (1.0-4.8) k/uL Eosinophils # (0.04-0.35) X 10*3/uL Sodium (137-145) mmol/L BUN 28.5 H (7-17) mg/dL Creatinine 0.5 L (0.6-1.5) mg/dL BUN/Creatinine Ratio 57.00 H (12.00-20.00) Ratio Glucose (74-99) mg/dL Calcium 8.5 L (8.7-10.3) mg/dL Microbiology - Last 24 Hours (Table) 07/03/21 10:24 Blood Culture - Preliminary Blood No Growth after 72 hours 07/03/21 10:15 Blood Culture - Preliminary Blood No Growth after 72 hours Assessment and Plan Plan: Assessment: #1. Acute on chronic hypoxic respiratory failure, multifactorial, related to possible right lower lobe pseudomonal pneumonia, bacteremia, acute pulmonary embolism, and spontaneous right-sided pneumothorax #2. Acute sepsis and bacteremia secondary to pseudomonas aeruginosa, currently on cefepime, follow blood cultures from 07/03/2021 have shown no growth #3. Acute pulmonary embolism without ventricular strain, on Eliquis #4. Acute exacerbation of COPD, improving #5. Acute spontaneous right-sided pneumothorax, status post smallbore chest tube placement and subsequent removal, follow-up chest x-ray shows no evidence of pneumothorax #6. New onset atrial fibrillation, patient is on amiodarone and Lopressor and Eliquis, currently in sinus mechanism #7. History of underlying coronary artery disease #8. History of endovascular aortic repair #9. Right lower lobe collapse without evidence of pleural effusion based on the limited reported by the radiologist regarding the ultrasound Plan: Patient has been stable in the last 24 hours Wean FiO2 down to 3 L Breathing comfortably, Follow-up chest x-ray today shows no pneumothorax Vital signs are stable Patient is tolerating ambulation She can be considered for discharge from pulmonary perspective Outpatient follow-up with Dr. Lomeli in the office in one or 2 weeks I performed a history & physical examination of the patient and discussed their management with my nurse practitioner, Jacque Arvizu. I reviewed the nurse practitioner's note and agree with the documented findings and plan of care. L tong sounds are positive for diffuse rhonchi throughout the lung aden. The findings and the impression was discussed with the patient. I attest to the documentation by the nurse practitioner. Time with Patient: Less than 30
[2021-07-06] MEDS: ACETAMINOPHEN TAB 325 MG TAB PO PRN (14:39)
--- NOTE | 2021-07-06 16:50 | P.PN ---
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 Chronic stable medical conditions include coronary artery disease with stent, some mild right-sided weakness from prior stroke, hypertension, hyperlipidemia, obstructive sleep apnea uses CPAP machine, TB in 1985, hiatal hernia, surgery for thoracic aortic aneurysm, sleeve gastrectomy [place] [address] Hamilton. Home oxygen 4 L Patient presented to the ER with some right-sided and right posterior pain. Worse with deep breathing. No trauma. More short of breath than baseline. No fever and chills. Some baseline cough. Appetite is fair.. Patient found to be in the ER started on IV heparin. Pulmonary was consulted. Patient's grandson at the bedside. Patient is vaccinated for COVID 19. July 08: ICU: Last night patient developed right-sided pneumothorax in the ER. Thora-vent was placed. Followed by chest tube. Patient moved to the ICU. Went to A. fib with rapid ventricular rate. Today started IV amiodarone. Remains on IV heparin. Patient's grandson and his mother at the bedside. Short of breath. Tired. June 29: ICU: Thora-vent.. Short of breath. A. fib with rapid ventricular rate. Back on IV amiodarone. Had been held. Tired. Taking small amounts. ensure ordered. FiO2 increased to 15 L June 30: ICU: Thora-vent is capped. Short of breath. Patient yesterday went back in sinus rhythm. Then back into A. fib with rapid ventricular rate. Put back on IV amiodarone. Patient's daughter was out of town at the bedside. She had talked to the patient and felt the patient was not sure about the CODE STATUS. So we will going to revert the patient to full code. I did ask her to discuss with the patient and let us know. No refills DO NOT RESUSCITATE will be appropriate but he wanted the patient and the daughter decided. Later the patient came back and informed be that she discussed with the patient again and patient was to remain DO NOT RESUSCITATE. Decreased oral intake. On 15 L of oxygen. Started on eliquis. IV heparin discontinued. July 01: ICU: Thora-vent capped. A bit less short of breath. Eating little. In sinus rhythm. IV amiodarone drip. Her daughter the bedside. Ensure ordered July 02: ICU: Thora-vent remains. Remains on 15 L of nasal cannula. Tired. Daughter the bedside. Eating small amounts. Including some Ensure. Remains in sinus rhythm. IV amiodarone changed over to by mouth amiodarone. Tired July 03: ICU: Thora-vent capped. Sitting up in a chair. FiO2 down to 5 L. Eating some. Sr. the bedside. Remains in sinus rhythm. Breathing better. July 04: ICU: Propped up in bed. Eating some. Daughter present. Remains in sinus rhythm. Appears more relaxed. On nasal cannula. July 05: Moved to the medical floor. Some shortness of breath. Intermittent coughing. Eating about 50%.. 5 L oxygen Changed to by mouth prednisone. July 06: Doing better. Breathing better. Down to 5 L nasal cannula. Initial plan was for patient to go home. Medications for discussed with the patient. Late in the evening patient decided to go to [facility]. Care was discussed with nurse. No sputum no fever. DC antibiotics. Review of systems: Was done for constitutional, cardiovascular, GI, pulmonary. relevant finding as above Active Medications Acetaminophen (Acetaminophen Tab 325 Mg Tab) 650 mg PO Q6HR PRN PRN Reason: Mild Pain or Fever > 100.5 Last Admin: 07/06/21 14:39 Dose: 650 mg Documented by: Al Hydroxide/Mg Hydroxide (Mag Hydrox/Al Hydrox/Simeth 30 Ml Cup) 15 ml PO Q6HR PRN PRN Reason: Indigestion Albuterol Sulfate (Albuterol Nebulized 2.5 Mg/3 Ml) 2.5 mg INHALATION RT-QID PRN PRN Reason: Shortness Of Breath Albuterol/Ipratropium (Ipratropium-Albuterol 3 Ml Neb) 3 ml INHALATION RT-QID [facility] Last Admin: 07/06/21 15:55 Dose: 3 ml Documented by: Amiodarone HCl (Amiodarone 200 Mg Tab) 200 mg PO BID [facility] Last Admin: 07/06/21 08:12 Dose: 200 mg Documented by: Apixaban (Apixaban 5 Mg Tab) 5 mg PO BID [facility]; Protocol Last Admin: 07/06/21 08:12 Dose: 5 mg Documented by: Budesonide (Budesonide 1 Mg/2 Ml Nebu) 1 mg INHALATION RT-BID [facility] Last Admin: 07/06/21 09:38 Dose: 1 mg Documented by: Calcium Carbonate/Glycine (Calcium Carbonate 500 Mg Chewable) 1,000 mg PO Q4HR PRN PRN Reason: Dyspepsia Formoterol Fumarate (Formoterol Fumarate 20 Mcg/2 Ml Nebu) 20 mcg INHALATION RT-BID [facility] Last Admin: 07/06/21 09:38 Dose: 20 mcg Documented by: Furosemide (Furosemide 20 Mg Tab) 20 mg PO BID@0900,1600 [facility] Last Admin: 07/06/21 08:12 Dose: 20 mg Documented by: Hydromorphone HCl (Hydromorphone 1 Mg/Ml 1 Ml Syringe) 1 mg IVP Q6HR PRN PRN Reason: Pain Last Admin: 07/04/21 12:56 Dose: 1 mg Documented by: Sodium Chloride (Saline 0.9%) 500 mls @ 20 mls/hr IV .Q24H [facility] Last Admin: 07/06/21 15:25 Dose: Not Given Documented by: Lactulose (Lactulose 20 Gm/30 Ml Cup) 20 gm PO DAILY PRN PRN Reason: Constipation Melatonin (Melatonin 3 Mg Tablet) 3 mg PO HS PRN PRN Reason: Insomnia Metoprolol Tartrate (Metoprolol Tartrate 50 Mg Tab) 50 mg PO TID [facility] Last Admin: 07/06/21 08:12 Dose: 50 mg Documented by: Miscellaneous Information (Potassium Replacement Protocol 1 Each Misc) 1 each MISCELLANE DAILY PRN; Protocol PRN Reason: Per Protocol Miscellaneous Information (Magnesium Replacement Protocol 1 Each Misc) 1 each MISCELLANE DAILY PRN; Protocol PRN Reason: Per Protocol Multi-Ingred Cream/Lotion/Oil/Oint (Hydrophilic Cream 180 Gm Tube) 1 applic TOPICAL DAILY [facility]; Protocol Last Admin: 07/06/21 08:14 Dose: 1 applic Documented by: Naloxone HCl (Naloxone 0.4 Mg/Ml 1 Ml Vial) 0.2 mg IV Q2M PRN PRN Reason: Opioid Reversal Ondansetron HCl (Ondansetron 4 Mg/2 Ml Vial) 4 mg IVP Q8HR PRN PRN Reason: Nausea And Vomiting Last Admin: 06/28/21 10:31 Dose: 4 mg Documented by: Pantoprazole Sodium (Pantoprazole 40 Mg Tablet) 40 mg PO DAILY [facility] Last Admin: 07/06/21 08:12 Dose: 40 mg Documented by: Prednisone (Prednisone 20 Mg Tab) 40 mg PO DAILY [facility] Last Admin: 07/06/21 08:12 Dose: 40 mg Documented by: Sodium Bicarbonate (Sodium Bicarbonate Tab 650 Mg Tab) 650 mg PO TID [facility] Last Admin: 07/06/21 08:12 Dose: 650 mg Documented by: Past medical history to include: Coronary artery disease with stent, COPD, stroke with some mild right-sided weakness, hyperlipidemia, hypertension, obstructive sleep apnea uses CPAP, TB 1985, hiatal hernia, sleeve gastrectomy in 2018, surgery for thoracic aortic aneurysm, 4 L of oxygen at home Social history: Started smoking age of 15 stopped in 2011. One pack a day. Alcohol occasionally. Lives with her grandson. Occasionally uses a cane or a walker. Family history: CA, pacemaker, COPD Physical examination: VITAL SIGNS: 97.5, 57, 17, 118/73, 95% on 5 L GENERAL: Propped up in bed, appears more relaxed EYES: Pupils equal. Conjunctiva normal. HEENT: External appearance of nose and ears normal, oral cavity grossly normal. NECK: JVD not raised; masses not palpable. HEART: First and second heart sounds are normal; mild edema in the left lower extremity LUNGS: Respiratory rate increased, decreased breath sounds. ABDOMEN: Soft, nontender, liver spleen not palpable, no masses palpable. PSYCH: Alert and oriented x3; mood and affect normal NEUROLOGICAL: Cranial nerves grossly intact; no facial asymmetry, mild right hemiparesis INVESTIGATIONS, reviewed in the clinical context: July 06: White count 13.7 hemoglobin 10.7 potassium 4.1 creatinine 0.5 Coronavirus [PCR]: Not detected July 05: White count 19 hemoglobin 12 potassium 3.9 creatinine 0.55 July 04: WBC 21.6 hemoglobin 12 sodium 135 potassium 3.7 creatinine 0.53 July 03: WBC 24.6 hemoglobin 13.1 progression 3. 4 repeat 3.8 creatinine 0.44 July 02: WBC 19.2 hemoglobin 13.2 sodium 132 potassium 3.7 creatinine 0.39 July 01: White count 12.5 hemoglobin 12.2 potassium 3.4 creatinine 0.51 June 30: White count 7.8 hemoglobin 12 platelets 149, sodium 126 potassium 4.2 creatinine 0.5 to 2-D echocardiogram: EF 50-55% June 28: White count 3.9 hemoglobin 13.1 platelets 126 sodium 135 potassium 3 when necessary 24 crit and 0.7 to White count 16.2 hemoglobin 14.9 platelets 212 d-dimer 23.3 sodium 137 potassium 3 BUN 28 creatinine 1.14 Troponin I 0.508 proBNP 688 Coronavirus [PCR] not detected EKG tracing personally reviewed by me-normal sinus rhythm. Flipped T waves. The anterolateral leads. PVC. Computed tomography scan of the chest: Aortic stent. Large pneumatocele is in the posterior right lung. Acute PE in the right middle and lower lobe arteries secondary intensity branches. Right lower lobe consolidation and/or mass. Chest x-ray film personally reviewed by me-right basilar infiltrate, aortic graft Assessment and plan: -Acute PE in the right middle and lower lobe arteries and secondary branches, eliquis. -Probable right basilar pneumonia suspected gram-negative organism IV cefepime: Completed course -Paroxysmal atrial fibrillation with a rapid ventricular rate upon presentation: Currently sinus rhythm Amiodarone 200 mg twice a day. Lopressor 50 mg 3 times a day -IV heparin monitoring: Discontinued Follow PTT -Spontaneous pneumothorax: Improved Thora-vent, capped-removed -Chronic hypoxic respiratory failure from COPD On home oxygen 4 -Acute hypoxic respiratory failure from PE: Better Oxygen supplementation. FiO2 5 liters -Acute severe COPD exacerbation in an ex-smoker-: Slow to respond on bronchodilators, inhaled steroids. Long-acting beta agonist. -Coronary artery disease with stent Lopressor, -Mild right hemiparesis from prior stroke -Hyperlipidemia, -Hypokalemia Replace potassium -Hyponatremia Encourage oral intake -Essential hypertension, amlodipine 10 mg daily, Lopressor 50 mg 3 times a day -Obstructive sleep apnea uses CPAP , continue the same -Hiatal hernia -History of sleeve gastrectomy -DO NOT RESUSCITATE IV cefepime: Discontinue. Oral prednisone. Tanna. Had a long talk with the patient. She needs to get a okay from a physicians before she goes down to [place] with her daughter. Plan is now for the patient according to [facility] re[facility]. Total time spent today about 45 minutes with over 25% discussion.
[2021-07-07] MEDS: IPRATROPIUM-ALBUTEROL 3 ML NEB INHALATION SCH ×2 (07:30→11:35)
[2021-07-07] MEDS: BUDESONIDE 1 MG/2 ML NEBU INHALATION SCH (07:30)
[2021-07-07] MEDS: AMIODARONE 200 MG TAB PO SCH (08:24)
[2021-07-07] MEDS: PANTOPRAZOLE 40 MG TABLET PO SCH (08:24)
[2021-07-07] MEDS: APIXABAN 5 MG TAB PO SCH (08:24)
[2021-07-07] MEDS: METOPROLOL TARTRATE 50 MG TAB PO SCH (08:24)
[2021-07-07] MEDS: SODIUM BICARBONATE TAB 650 MG TAB PO SCH (08:24)
[2021-07-07] MEDS: predniSONE 20 MG TAB PO SCH (08:24)
[2021-07-07] MEDS: HYDROPHILIC CREAM 180 GM TUBE TOPICAL SCH (08:25)
[2021-07-07] MEDS: FUROSEMIDE 20 MG TAB PO SCH (08:25)
[2021-07-07 08:27] VITALS: BP 130/78; RESP 16; TEMP 98.1
[2021-07-07] MEDS: ACETAMINOPHEN TAB 325 MG TAB PO PRN (10:09)
[2021-07-07] MEDS: FORMOTEROL FUMARATE 20 MCG/2 ML NEBU INHALATION SCH (12:39)
[2021-07-07 12:41] VITALS: PULSE 80
--- NOTE | 2021-07-07 14:33 | P.DS ---
Providers Date of admission: 06/27/21 14:47 Expected date of discharge: 07/07/21 Attending physician: Murali Masters Consults: 06/27/21 16:01 Consult Physician Stat Consulting Provider: Kaylin Cortes Consult Reason/Comments: ICU patient, Pulmonary Embolism, COPD Oxygen- dependent Do you want consulting provider notified?: Already Contacted 06/28/21 10:59 Consult Physician Routine Consulting Provider: Qamar Briseno Consult Reason/Comments: Manage thorovent Do you want consulting provider notified?: Already Contacted Primary care physician: Gonsalo Iraheta [facility] Course: Chief Complaint: Right chest wall pain History of presenting complaint: 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 Chronic stable medical conditions include coronary artery disease with stent, some mild right-sided weakness from prior stroke, hypertension, hyperlipidemia, obstructive sleep apnea uses CPAP machine, TB in 1985, hiatal hernia, surgery for thoracic aortic aneurysm, sleeve gastrectomy [place] [address] Hamilton. Home oxygen 4 L Patient presented to the ER with some right-sided and right posterior pain. Worse with deep breathing. No trauma. More short of breath than baseline. No fever and chills. Some baseline cough. Appetite is fair.. Patient found to be in the ER started on IV heparin. Pulmonary was consulted. Patient's grandson at the bedside. Patient is vaccinated for COVID 19. July 08: ICU: Last night patient developed right-sided pneumothorax in the ER. Thora-vent was placed. Followed by chest tube. Patient moved to the ICU. Went to A. fib with rapid ventricular rate. Today started IV amiodarone. Remains on IV heparin. Patient's grandson and his mother at the bedside. Short of breath. Tired. June 29: ICU: Thora-vent.. Short of breath. A. fib with rapid ventricular rate. Back on IV amiodarone. Had been held. Tired. Taking small amounts. ensure ordered. FiO2 increased to 15 L June 30: ICU: Thora-vent is capped. Short of breath. Patient yesterday went back in sinus rhythm. Then back into A. fib with rapid ventricular rate. Put back on IV amiodarone. Patient's daughter was out of town at the bedside. She had talked to the patient and felt the patient was not sure about the CODE STATUS. So we will going to revert the patient to full code. I did ask her to discuss with the patient and let us know. No refills DO NOT RESUSCITATE will be appropriate but he wanted the patient and the daughter decided. Later the patient came back and informed be that she discussed with the patient again and patient was to remain DO NOT RESUSCITATE. Decreased oral intake. On 15 L of oxygen. Started on eliquis. IV heparin discontinued. Patient's Thora-vent was And eventually discontinued. Patient did receive IV amiodarone drip for atrial fibrillation. On the vent back into sinus rhythm. Oral intake improved. Patient weak. Patient did work with physical therapy. July 07: Patient initially wanted to go home with home help. Finally decided to go to inpatient rehab. Oxygen decreased to 3 L. Oral intake fair. Care was discussed with the patient. Questions answered. Consultation: Dr. Hutchinson in [facility] Past medical history to include: Coronary artery disease with stent, COPD, stroke with some mild right-sided weakness, hyperlipidemia, hypertension, obstructive sleep apnea uses CPAP, TB 1985, hiatal hernia, sleeve gastrectomy in 2017, surgery for thoracic aortic aneurysm, 4 L of oxygen at home Social history: Started smoking age of 15 stopped in 2011. One pack a day. Alcohol occasionally. Lives with her grandson. Occasionally uses a cane or a walker. Family history: [place], pacemaker, COPD Physical examination: VITAL SIGNS: 98.1, 80, 16, 1:30/78, 90% on 3 L GENERAL: Propped up in bed, not in distress EYES: Pupils equal. Conjunctiva normal. HEENT: External appearance of nose and ears normal, oral cavity grossly normal. NECK: JVD not raised; masses not palpable. HEART: First and second heart sounds are normal; mild edema in the left lower extremity LUNGS: Respiratory rate increased, decreased breath sounds. ABDOMEN: Soft, nontender, liver spleen not palpable, no masses palpable. PSYCH: Alert and oriented x3; mood and affect normal NEUROLOGICAL: Cranial nerves grossly intact; no facial asymmetry, mild right hemiparesis INVESTIGATIONS, reviewed in the clinical context: July 06: White count 13.7 hemoglobin 10.7 potassium 4.1 creatinine 0.5 Coronavirus [PCR]: Not detected 2-D echocardiogram: EF 50-55% Raffaele 8: White count 3.9 hemoglobin 13.1 platelets 126 sodium 135 potassium 3 when necessary 24 crit and 0.7 to White count 16.2 hemoglobin 14.9 platelets 212 d-dimer 23.3 sodium 137 potassium 3 BUN 28 creatinine 1.14 Troponin I 0.508 proBNP 688 Coronavirus [PCR] not detected EKG tracing personally reviewed by me-normal sinus rhythm. Flipped T waves. The anterolateral leads. PVC. Computed tomography scan of the chest: Aortic stent. Large pneumatocele is in the posterior right lung. Acute PE in the right middle and lower lobe arteries secondary intensity branches. Right lower lobe consolidation and/or mass. Chest x-ray film personally reviewed by me-right basilar infiltrate, aortic graft Assessment and plan: -Acute PE in the right middle and lower lobe arteries and secondary branches, eliquis. -Probable right basilar pneumonia suspected gram-negative organism: Improved IV cefepime: Completed course -Paroxysmal atrial fibrillation with a rapid ventricular rate upon presentation: Currently sinus rhythm Amiodarone 200 mg day. Lopressor 50 mg 3 times a day -IV heparin monitoring: Discontinued Follow PTT -Spontaneous pneumothorax: Improved Thora-vent, capped-removed -Chronic hypoxic respiratory failure from COPD On home oxygen 4 -Acute hypoxic respiratory failure from PE: Better Oxygen supplementation. FiO2 3 liters -Acute severe COPD exacerbation in an ex-smoker-: Improved on bronchodilators, inhaled steroids. Long-acting beta agonist. DC on prednisone taper -Coronary artery disease with stent Lopressor, -Mild right hemiparesis from prior stroke -Hyperlipidemia, -Hypokalemia: Corrected Replace potassium -Hyponatremia Encourage oral intake -Essential hypertension, amlodipine 10 mg daily, Lopressor 50 mg 3 times a day -Obstructive sleep apnea uses CPAP , continue the same -Hiatal hernia -History of sleeve gastrectomy -DO NOT RESUSCITATE Disposition: [facility]/ECF Plan - Discharge Summary Discharge Rx Participant: No New Discharge Prescriptions: New Apixaban [Eliquis] 5 mg PO BID 30 Days #60 tab Metoprolol Tartrate [Lopressor] 50 mg PO TID #90 tab predniSONE 10 mg PO DAILY #30 tab Amiodarone [Cordarone] 200 mg PO DAILY #30 tab Furosemide [Lasix] 20 mg PO DAILY #30 tab Ipratropium-Albuterol Nebulize [Duoneb 0.5 mg-3 mg/3 ml Soln] 3 ml INHALATION RT-QID ml Continue Albuterol Nebulized [Ventolin Nebulized] 2.5 mg INHALATION RT-QID PRN PRN Reason: Shortness Of Breath predniSONE 10 mg PO DAILY Omeprazole 40 mg PO DAILY Fluticasone/Umeclidin/Vilanter [Trelegy Ellipta 100-62.5-25] 1 puff INHALATION RT-DAILY Discontinued amLODIPine BESYLATE 10 mg PO DAILY Albuterol Sulfate [Proair Hfa] 2 puff INHALATION RT-QID PRN PRN Reason: Shortness Of Breath Metoprolol Tartrate [Lopressor] 25 mg PO DAILY Discharge Medication List Albuterol Nebulized [Ventolin Nebulized] 2.5 mg INHALATION RT-QID PRN 09/14/20 [History] Fluticasone/Umeclidin/Vilanter [Trelegy Ellipta 100-62.5-25] 1 puff INHALATION RT-DAILY 06/27/21 [History] Omeprazole 40 mg PO DAILY 06/27/21 [History] predniSONE 10 mg PO DAILY 06/27/21 [History] Apixaban [Eliquis] 5 mg PO BID 30 Days #60 tab 07/05/21 [Rx] Amiodarone [Cordarone] 200 mg PO DAILY #30 tab 07/06/21 [Rx] Furosemide [Lasix] 20 mg PO DAILY #30 tab 07/06/21 [Rx] Metoprolol Tartrate [Lopressor] 50 mg PO TID #90 tab 07/06/21 [Rx] Ipratropium-Albuterol Nebulize [Duoneb 0.5 mg-3 mg/3 ml Soln] 3 ml INHALATION RT-QID ml 07/07/21 [Rx] predniSONE 10 mg PO DAILY #30 tab 07/07/21 [Rx] Follow up Appointment(s)/Referral(s): Kaylin Cortes MD [STAFF PHYSICIAN] - 07/20/21 1:00 pm [facility], [NON-STAFF] - 1-2 Days Lars Barajas DO [STAFF PHYSICIAN] - 1-2 Days Gonsalo Phan DO [Primary Care Provider] - As Needed Patient Instructions/Handouts: Pulmonary Embolism (DC), COPD (Chronic Obstructive Pulmonary Disease) (DC) Activity/Diet/Wound Care/Special Instructions: Eliquis copay is $47/month.
--- NOTE | 2021-07-07 14:35 | P.PN ---
Subjective Progress Note Date: 07/07/21 Principal diagnosis: Shortness of breath. On 07/03/2001 patient seen in follow-up in the intensive care unit, she is awake and alert, in no acute distress, she states her breathing is improving, she is down to 8 L of oxygen on today's exam, she had previously been on 12 L. Pulse ox on 8 L is 91-92%, she did not require BiPAP support last night, she does wear a CPAP device at home on a nightly basis. Lung sounds reveal diffuse rhonchi. She needs quite a bit of encouragement to keep working on the incentive spirometer, she is able to achieve 500-750 on it today. No complaint of chest discomfort, no hemoptysis. Patient is being treated for pseudomonal bacteremia, she remains on cefepime. She is on D5 half-normal seen at a rate of 20 ML per hour, she is on nebulized bronchodilators, she is on IV Lasix at 20 mg every 8 hours, she is in -2.3 L net fluid balance over the last 24 hours, today's chest x-ray findings show increasing opacification in the right upper lobe consolidation, and improvement of the right lower lobe infiltrate and left basilar treatment. His labs have been reviewed, with blood cell count is 24.6, hemoglobin is 13.1, sodium is 134, potassium is 3.4, BUN was 17 creatinine was 0.44. Overall patient is still quite weak, short of breath with any exertion, she has been bedbound for the most part. Otherwise hemodynamically stable, not requiring any norepinephrine. No pneumothorax on today's exam, her right-sided thoravent was removed yesterday, patient had a run of A. fib, currently in sinus mechanism, she is on Eliquis, and oral amiodarone. She is also on Lopressor 50 mg 3 times daily On 07/04/2021 patient seen in follow-up in the intensive care unit. Patient continues on BiPAP support at 12 and 6 and FiO2 of 40%. Does not appear to be in any acute distress. Earlier patient was satting 98%, and her FiO2 has been dropped from 60% down to 40%. Denies any specific complaints, she's been afebrile, breathing is nonlabored. Today's chest x-ray has been reviewed showing increased interstitium, underlying emphysema. Today's labs have been reviewed, white blood cell count is improving and is down to 21.6, hemoglobin is 12, serum sodium is 135, the rest of the electrolytes are unremarkable, BUN is 30 creatinine 0.53. Patient continues on IV diuretics 20 mg every 8 hours, she is in -2.3 L or last 24 hours, with a total urine output of 2.9 L, her oxygenation has significantly improved with diuresis. Her FiO2 is currently down to 40%, breathing easier, patient also remains on antibiotics that were transitioned to oral Omnicef. Blood cultures were positive for pseudomonas aeruginosa. Yesterday we sent follow-up blood cultures and the results are pending right now. Vital signs have been stable. Patient continues on bronchodilators and IV Solu-Medrol 40 mg every 8 hours. On 07/05/2021 patient seen in follow-up on medical surgical floor, she is currently on 5 L of oxygen, she is breathing comfortably, she has walked to the bathroom with a walker and one person limited assist, she tolerated activity well, did not require BiPAP support last night. Breathing comfortably, lung sounds reveal mild wheezes bilateral, diminished breath sounds over the right lung, but air entry was noted bilaterally. No complaints of chest pain, only occasional cough, nonproductive. Patient continues on IV diuretics at 20 mg twice daily, and she continues on IV Solu-Medrol and nebulized bronchodilators and cefepime for pseudomonal bacteremia, follow-up blood cultures from 07/03/2021 have shown no growth at the 48 hour clark, vital signs have been stable no fever or chills, no altered mentation. Bowman catheter remains in place, and patient is maintaining negative fluid balance. Follow-up chest x-ray is pending, no new labs from today. Pro-calcitonin level at 0.47 on today's labs. On 07/06/2021 patient seen in follow-up on medical surgical floor. She is sitting up in the chair, she is getting ready to eat lunch, currently on 5 L of oxygen her pulse ox is 95%, she normally wears 3 L of oxygen on a regular basis at home, this can probably be weaned down further. Breathing comfortably, lung sounds reveal a few scattered rhonchi, no wheezing, she's been afebrile, vital signs have been stable, she has had no acute events overnight, she has been tolerating ambulation. She remains on Eliquis, she is on nebulized bronchodilators, she is on cefepime, and her follow-up blood cultures have shown no growth. She has been transitioned to oral prednisone. Patient is stable on her feet, she ambulates with limited assist and supervision from staff. Appetite is good, today's labs have been reviewed her white count continues to improve and is down to 17.7, hemoglobin is 10.7, electrolytes are within normal limits, BUN is 28 creatinine 0.5 Progress note dated 07/07/2021. The patient is again seen in room 456. The patient is on 3 L of nasal O2. She's not receiving any IV fluids she tells me, that she'll be discharged to [facility] probably later today. I don't have any confirmation of that. The patient denies any shortness of breath, coughing, wheezing, or phlegm production. She also denies any chest pain or chest discomfort. She denies any fever or chills. No new laboratory data today. A chest x-ray from yesterday shows a stable focal opacity right midlung, and at the bases, left greater than right. A pneumothorax was not identified. Objective - Vital Signs Vital signs: Vital Signs Temp 98.1 F 07/07/21 08:00 Pulse 80 07/07/21 11:45 Resp 16 07/07/21 08:00 BP 130/78 07/07/21 08:00 Pulse Ox 90 L 07/07/21 08:00 Intake & Output 07/06/21 07/07/21 07/07/21 18:59 06:59 18:59 Intake Total 240 Output Total 700 Balance -700 240 Weight 80.7 kg Intake: Oral 240 Output: Urine 700 Straight 700 Other: Voiding Method Indwelling Catheter # Voids 1 - Exam No acute distress, oriented 3. Saturations are 90-93% on 3 L. HEENT examination is grossly unremarkable. Mucous membranes are moist. No oral lesions. Neck supple. Full range of motion. No adenopathy thyromegaly or neck vein distention. Cardiovascular examination reveals regular rhythm rate. S1-S2 normal. No S3 or S4. No discernible murmur noted. Heart rate 81 bpm. Lungs reveal clear breath sounds. Breath sounds are equal bilaterally. No adventitious lung sounds including wheezes rhonchi or crackles. Abdomen soft bowel sounds are heard. No masses or tenderness. Extremities are intact. No cyanosis clubbing or edema. Skin is without rash or lesion. Neurologic examination is brief but nonfocal. - Labs CBC & Chem 7: 07/06/21 05:37 07/06/21 05:37 Labs: Microbiology - Last 24 Hours (Table) 07/03/21 10:24 Blood Culture - Preliminary Blood No Growth after 96 hours 07/03/21 10:15 Blood Culture - Preliminary Blood No Growth after 96 hours Assessment and Plan Assessment: #1. Acute on chronic hypoxic respiratory failure, multifactorial, related to possible right lower lobe pseudomonal pneumonia, bacteremia, acute pulmonary embolism, and spontaneous right-sided pneumothorax. #2. Acute sepsis and bacteremia secondary to pseudomonas aeruginosa, currently on cefepime, follow blood cultures from 07/03/2021 have shown no growth. #3. Acute pulmonary embolism without ventricular strain, on Eliquis. #4. Acute exacerbation of COPD, improving. #5. Acute spontaneous right-sided pneumothorax, status post smallbore chest tube placement and subsequent removal, follow-up chest x-ray shows no evidence of pneumothorax. #6. New onset atrial fibrillation, patient is on amiodarone and Lopressor and Eliquis, currently in sinus mechanism. #7. History of underlying coronary artery disease. #8. History of endovascular aortic repair. #9. Right lower lobe collapse without evidence of pleural effusion based on the limited reported by the radiologist regarding the ultrasound. Plan: Plan dated 07/07/2024. The patient's oxygen has been weaned down to 3 L. She is breathing comfortably. There is no new labs today. No recent chest x-ray to review other than the one from yesterday. The patient will follow-up in the outpatient setting with my partner. The patient apparently will be discharged to [facility]. The patient currently denies any shortness of breath, chest tightness, cough, wheezing, or phlegm production. Time with Patient: Less than 30
== END 2021-07-07 15:02 | DRG 871 ==
LOC: EC 10:49 → 3SCARD 14:47 → 2SICU 18:10 → 4SSUR 07-04 13:17
PROVIDERS: ADMIT Hospitalist; ATTEND Hospitalist
PROC: 5A0945A Assistance with Respiratory Ventilation, 24-96 Consecutive Hours, High Flow/Velocity Cannula (ICD-10-PCS; principal; 2021-06-28)
PROC: 5A09357 Assistance with Respiratory Ventilation, Less than 24 Consecutive Hours, Continuous Positive Airway Pressure (ICD-10-PCS; 2021-07-02)
DX: A41.52 Sepsis due to Pseudomonas (principal); I26.99 Other pulmonary embolism without acute cor pulmonale; J96.21 Acute and chronic respiratory failure with hypoxia; J15.6 Pneumonia due to other Gram-negative bacteria; E87.1 Hypo-osmolality and hyponatremia; I69.351 Hemiplegia and hemiparesis following cerebral infarction affecting right dominant side; J90 Pleural effusion, not elsewhere classified; J93.82 Other air leak; J98.11 Atelectasis; R07.9 Chest pain, unspecified; E66.9 Obesity, unspecified; Z68.32 Body mass index [BMI] 32.0-32.9, adult; E78.5 Hyperlipidemia, unspecified; E87.6 Hypokalemia; F32.A Depression, unspecified; G47.33 Obstructive sleep apnea (adult) (pediatric); I10 Essential (primary) hypertension; I25.10 Atherosclerotic heart disease of native coronary artery without angina pectoris; I25.2 Old myocardial infarction; I48.0 Paroxysmal atrial fibrillation; Z20.822 Contact with and (suspected) exposure to COVID-19; J43.9 Emphysema, unspecified; K44.9 Diaphragmatic hernia without obstruction or gangrene; L98.492 Non-pressure chronic ulcer of skin of other sites with fat layer exposed; N28.9 Disorder of kidney and ureter, unspecified; Z66 Do not resuscitate; Z74.01 Bed confinement status; Z79.01 Long term (current) use of anticoagulants; Z79.52 Long term (current) use of systemic steroids; Z79.899 Other long term (current) drug therapy; Z82.49 Family history of ischemic heart disease and other diseases of the circulatory system; Z82.5 Family history of asthma and other chronic lower respiratory diseases; Z86.11 Personal history of tuberculosis; Z95.5 Presence of coronary angioplasty implant and graft; Z98.84 Bariatric surgery status; Z99.81 Dependence on supplemental oxygen; Z87.891 Personal history of nicotine dependence; Z86.79 Personal history of other diseases of the circulatory system; Z88.0 Allergy status to penicillin; Z88.2 Allergy status to sulfonamides; Z88.8 Allergy status to other drugs, medicaments and biological substances
CPT/HCPCS: 36415; 36600; 71045; 71046; 71260; 71275; 76604; 80048; 80053; 82805; 83735; 83880; 84132; 84145; 84484; 85025; 85379; 85610; 85730; 87040; 87077; 87186; 87635; 93005; 93306; 94640; 94644; 94660; 96361; 96374; 96375; 96376; 99285

== ENCOUNTER 2021-08-02 16:48 | Inpatient (IN) | payer MEDICARE ==
[2021-08-02 15:52] LABS: African American GFR (CKD) >90 (>60 ml/min/1.73 sqM); Blood Urea Nitrogen 15 mg/dL (7-17); Non-African American GFR(CKD) 90 (>60 ml/min/1.73 sqM)
--- NOTE | 2021-08-02 16:43 | CT ---
EXAMINATION TYPE: CT chest w con DATE OF EXAM: 08/02/2021 COMPARISON: 06/30/2021 HISTORY: Abnormal lung aden. CT DLP: 367.2 mGycm Automated exposure control for dose reduction was used. TECHNIQUE: CT scan of the chest is performed with IV Contrast, patient injected with 100 mL of Isovue M300. MIP Images are created on CT scanner and reviewed. 3D reconstructed images are created on an independent workstation and reviewed. FINDINGS: LUNGS: There is a large mixed fluid and air rounded collection in the right upper lobe measuring 10 x 11 x 12 cm most likely in the basis of a pulmonary abscess. Adjacent subsegmental consolidation note d. Pneumatocele felt less likely. Bronchial pulmonary fistula not excluded. Subsegmental changes invo lving the left upper lobe most likely in the basis of atelectasis. Adjacent subsegmental irregular de nsity. Report called to referring clinician at 4:36 PM 08/10/2021. MEDIASTINUM: There is postsurgical change involving the thoracic aorta with suspected stent in positi on. Wainwright sac measures a maximal dimension of 6.1 cm and previously measured 6.1 cm and is stable. A scending aorta appears to be a more normal caliber. Coronary artery calcifications are noted. OTHER: Hypertrophic and degenerative changes of the spine. Post gastric surgery noted. Postcholecyst ectomy changes. IMPRESSION: 1. Large mixed fluid air masslike density measuring 10 x 11 x 12 cm occupying a majority of the right upper lobe likely related to large pulmonary abscess favored. Bronchopleural fistula not excluded. 2. Descending thoracic aortic aneurysm with stent graft placement. Wainwright sac measures 6.1 cm stable from prior exam.
[2021-08-02] MEDS ORDERED: SODIUM CHLORIDE 0.9% 500 ML 500 ML IV STA (18:42)
[2021-08-02] MEDS ORDERED: CEFEPIME 2 GM in SODIUM CHLORIDE 0.9% 100 ML IVPB STA (18:52)
[2021-08-02] MEDS ORDERED: AZITHROMYCIN 500 MG in SODIUM CHLORIDE 0.9% 250 ML IVPB STA (18:52)
[2021-08-02] MEDS ORDERED: VANCOMYCIN IV PER PHARMACY 1 EACH MISC MISCELLANE PRN ×2 (18:52→20:11)
[2021-08-02] MEDS ORDERED: PNEUMONIA PROTOCOL UTILIZED 1 EACH MISC PO PRN ×2 (18:52→20:11)
[2021-08-02] MEDS ORDERED: IPRATROPIUM-ALBUTEROL 3 ML NEB INHALATION STA (18:57)
--- NOTE | 2021-08-02 18:58 | ED ---
General Adult HPI - General Source: patient, RN notes reviewed Mode of arrival: ambulatory Limitations: no limitations <Kong Diaz - Last Filed: 08/02/21 20:25> <Inna Campos - Last Filed: 08/04/21 12:31> - General Chief complaint: Recheck/Abnormal Lab/Rx Stated complaint: abnormal chest CT Time Seen by Provider: 08/02/21 18:35 - History of Present Illness Initial comments: 71-year-old female with recent admission for pulmonary embolism presents with a mass/abscess to the right upper lobe. Patient was seen by her stars analytical lead for follow-up appointment today. Adventure Guide is Dr. Cortes. Patient's only complaint is ongoing fatigue. Patient is oxygen dependent at 4 L/m. Patient has a loose cough but denies any fever. No headache, no fever or chills, no changes in vision or hearing, no sore throat or difficulty with speech, no neck pain, no chest pain, no abdominal pain, no nausea or vomiting, no changes in urination or bowel movements, no numbness or tingling, no extremity pain, no skin rashes or lesions. Positive fatigue (Kong Diaz) - Related Data Home Medications Medication Instructions Recorded Confirmed Albuterol Nebulized [Ventolin 2.5 mg INHALATION RT-QID PRN 09/14/20 08/02/21 Nebulized] Fluticasone/Umeclidin/Vilanter 1 puff INHALATION RT-DAILY 06/27/21 08/02/21 [Trelericha Ellipta 100-62.5-25] Omeprazole 40 mg PO DAILY 06/27/21 08/02/21 Metoprolol Tartrate [Lopressor] 50 mg PO TID@0800,1400,199908/02/21 08/02/21 Potassium Chloride ER [K-Dur 10] 10 meq PO DAILY 08/02/21 08/02/21 Previous Rx's Medication Instructions Recorded Apixaban [Eliquis] 5 mg PO BID 30 Days #60 tab 07/05/21 Furosemide [Lasix] 20 mg PO DAILY #30 tab 07/06/21 Ipratropium-Albuterol Nebulize 3 ml INHALATION RT-QID ml 07/07/21 [Duoneb 0.5 mg-3 mg/3 ml Soln] Allergies Allergy/AdvReac Type Severity Reaction Status Date / Time Penicillins Allergy Rash/Hives Verified 08/02/21 19:54 Sulfa (Sulfonamide Allergy Rash/Hives Verified 08/02/21 19:54 Antibiotics) sulfamethoxazole Allergy Rash/Hives Verified 08/02/21 19:54 [From Bactrim] trimethoprim [From Bactrim] Allergy Rash/Hives Verified 08/02/21 19:54 levofloxacin [From Levaquin] AdvReac Nausea & Verified 08/02/21 19:54 Vomiting Review of Systems ROS Other: All systems not noted in ROS Statement are negative. <Kong Diaz - Last Filed: 08/02/21 20:25> ROS Other: All systems not noted in ROS Statement are negative. <Inna Campos - Last Filed: 08/04/21 12:31> ROS Statement: Those systems with pertinent positive or pertinent negative responses have been documented in the HPI. Past Medical History Past Medical History: Coronary Artery Disease (CAD), Cancer, COPD, CVA/TIA, Hyperlipidemia, Hypertension, Myocardial Infarction (GA), Sleep Apnea/CPAP/BIPAP Additional Past Medical History / Comment(s): CAD, previous history of coronary stent, thoracic aortic aneurysm with previous endovascular stent grafting, remote history of tuberculosis back in 1985, twice a with an AHI of 21, not utilizing her BiPAP, skin cancer, history of CVA with residual right-sided weakness, obesity with a previous history of sleep gastrectomy, COPD Last Myocardial Infarction Date:: 01/25/2006 History of Any Multi-Drug Resistant Organisms: None Reported Past Surgical History: Bariatric Surgery, Cholecystectomy, Heart Catheterization With Stent, Hernia Repair Additional Past Surgical History / Comment(s): Cyst removed from thyroid, HEART CATH WITH STENT X2, SURGERY FOR Thoracic Aortic Aneurysm, Ventral hernia repair with mesh July 2017. EGD, COLONOSCOPY. sleeve gastrectomy 05/19/18 (Dr. Jose Hamilton) Past Anesthesia/Blood Transfusion Reactions: Postoperative Nausea & Vomiting (PONV) Date of Last Stent Placement:: 2009 Past Psychological History: Depression Smoking Status: Former smoker Past Alcohol Use History: Occasional Past Drug Use History: Marijuana - Past Family History Father Family Medical History: COPD, Myocardial Infarction ([place]) Mother Family Medical History: Hypertension Additional Family Medical History / Comment(s): Pacemaker, heart issues Sister(s) Family Medical History: Cancer <Kong Diaz - Last Filed: 08/02/21 20:25> General Exam Limitations: no limitations General appearance: alert, in distress Head exam: Present: atraumatic, normocephalic, normal inspection Eye exam: Present: normal appearance, PERRL, EOMI. Absent: scleral icterus, conjunctival injection, periorbital swelling ENT exam: Present: normal exam, mucous membranes moist Neck exam: Present: normal inspection. Absent: tenderness, meningismus, lymphadenopathy Respiratory exam: Present: wheezes, rhonchi, other (Diminished breath sounds noted in the right upper lobe.). Absent: normal lung sounds bilaterally, respiratory distress, rales, stridor Cardiovascular Exam: Present: regular rate, normal rhythm, normal heart sounds. Absent: systolic murmur, diastolic murmur, rubs, gallop, clicks GI/Abdominal exam: Present: soft, normal bowel sounds. Absent: distended, tenderness, guarding, rebound, rigid Extremities exam: Present: normal inspection, full ROM, normal capillary refill. Absent: tenderness, pedal edema, joint swelling, calf tenderness Back exam: Present: normal inspection Neurological exam: Present: alert, oriented X3, CN II-XII intact Psychiatric exam: Present: normal affect, normal mood Skin exam: Present: warm, dry, intact, normal color. Absent: rash <JoeKong - Last Filed: 08/02/21 20:25> - General Exam Comments Initial Comments: Patient in minimal distress. Does not appear to be toxic vital signs stable, patient afebrile. On 4 L fracture via nasal cannula. (Kong Diaz) Course <JoeKong - Last Filed: 08/02/21 20:25> Vital Signs 08/02/21 08/02/21 08/02/21 17:01 19:57 20:03 Temperature 97.6 F Pulse Rate 64 64 66 Respiratory 16 Rate Blood Pressure 119/79 O2 Sat by Pulse 99 Oximetry 08/02/21 08/03/21 08/03/21 20:11 05:03 07:24 Temperature 98.7 F Pulse Rate 68 72 72 Respiratory 16 18 18 Rate Blood Pressure 123/81 123/72 132/87 O2 Sat by Pulse 95 98 95 Oximetry - Reevaluation(s) Reevaluation #1: 08/02/21 20:06 Patient reevaluated and is clinically and symptomatically unchanged. Hemodynamic stable. Discussed with Dr. Masters (Kong Diaz) Medical Decision Making - Lab Data Result diagrams: 08/02/21 19:10 08/02/21 19:10 - Radiology Data Radiology results: report reviewed, image reviewed <Kong Diaz - Last Filed: 08/02/21 20:25> - Lab Data Result diagrams: 08/04/21 07:53 08/04/21 07:53 <Inna Campos - Last Filed: 08/04/21 12:31> - Medical Decision Making Computed tomography scan done prior to me seeing the patient reveals a large mixed fluid air masslike density measuring 10 x 11 x 12 cm occupying the cathy ority of the right upper lobe, likely related to large pulmonary abscess, bronchopleural fistula not excluded. She also has a stable-appearing descending aortic aneurysm repair. Patient presents with ongoing fatigue. Patient was seen in June and admitted with a pulmonary embolism on the right side. Patient then developed an infectious process and was in the ICU. Patient subsequently went to [facility] and was discharged on the . Patient continues to have fatigue. Patient was seen by her stars analytical lead for a follow-up appointment today and a CT of the chest was ordered which shows a large mass in the right upper lobe consistent with possible abscess. Patient was sent for admission. Plan for admission with pulmonary consultation. Antibiotics for healthcare associated pneumonia. Case discussed in detail with the internal medicine physician, Dr. Masters. Patient will be admitted for right lung abscess and possible healthcare associated pneumonia. Patient was started on antibiotics here in the ED. Pulmonary consultation will be placed Patient admitted. Patient given bilateral stockings for venous thromboembolic embolism prophylaxis. However, patient is on oral anticoagulation as well. (Kong Diaz) I was available for consultation in the emergency department. The history and physical exam were done by the midlevel provider. I was consulted for this patients care. I reviewed the case with the midlevel provider and based on their presentation of the patient, I agree with the assessment, medical decision making and plan of care as documented. Chart was dictated using [employer] dictation software. Attempts were made to correct any dictation errors however some typographical errors may persist. Patient was seen during a national state of emergency due to the Covid-19 pandemic. (Inna Campos) - Lab Data Lab Results 08/02/21 08/02/21 08/02/21 Range/Units 12:00 15:41 19:10 WBC 9.6 (3.8-10.6) k/uL RBC 4.82 (3.80-5.40) m/uL Hgb 14.3 D (11.4-16.0) gm/dL Hct 46.7 H (34.0-46.0) % MCV 97.0 (80.0-100.0) fL MCH 29.7 (25.0-35.0) pg MCHC 30.6 L (31.0-37.0) g/dL RDW 14.0 (11.5-15.5) % Plt Count 243 (150-450) k/uL MPV 6.6 Neutrophils % 79 % Lymphocytes % 14 % Monocytes % 6 % Eosinophils % 0 % Basophils % 0 % Neutrophils # 7.6 (1.3-7.7) k/uL Lymphocytes # 1.3 (1.0-4.8) k/uL Monocytes # 0.5 (0-1.0) k/uL Eosinophils # 0.0 (0-0.7) k/uL Basophils # 0.0 (0-0.2) k/uL Hypochromasia Marked Sodium (137-145) mmol/L Potassium (3.5-5.1) mmol/L Chloride (98-107) mmol/L Carbon Dioxide (22-30) mmol/L Anion Gap mmol/L BUN 15 (7-17) mg/dL Creatinine 0.65 (0.52-1.04) mg/dL Est GFR (CKD-EPI)AfAm >90 (>60 ml/min/1.73 sqM) Est GFR (CKD-EPI)NonAf 90 (>60 ml/min/1.73 sqM) Glucose (74-99) mg/dL Plasma Lactic Acid Valerio (0.7-2.0) mmol/L Calcium (8.4-10.2) mg/dL Magnesium (1.6-2.3) mg/dL Total Bilirubin (0.2-1.3) mg/dL AST (14-36) U/L ALT (4-34) U/L Alkaline Phosphatase (38-126) U/L Troponin I (0.000-0.034) ng/mL C-Reactive Protein (<1.0) mg/dL Total Protein (6.3-8.2) g/dL Albumin (3.5-5.0) g/dL Coronavirus (PCR) (Not Detectd) Influenza Type A RNA (Not Detectd) Influenza Type B (PCR) (Not Detectd) Legionella Source Urine Urine Legionella Ag Negative (Negative) 08/02/21 08/02/21 08/02/21 Range/Units 19:10 19:10 19:10 WBC (3.8-10.6) k/uL RBC (3.80-5.40) m/uL Hgb (11.4-16.0) gm/dL Hct (34.0-46.0) % MCV (80.0-100.0) fL MCH (25.0-35.0) pg MCHC (31.0-37.0) g/dL RDW (11.5-15.5) % Plt Count (150-450) k/uL MPV Neutrophils % % Lymphocytes % % Monocytes % % Eosinophils % % Basophils % % Neutrophils # (1.3-7.7) k/uL Lymphocytes # (1.0-4.8) k/uL Monocytes # (0-1.0) k/uL Eosinophils # (0-0.7) k/uL Basophils # (0-0.2) k/uL Hypochromasia Sodium 135 L (137-145) mmol/L Potassium 2.9 L (3.5-5.1) mmol/L Chloride 97 L (98-107) mmol/L Carbon Dioxide 33 H (22-30) mmol/L Anion Gap 5 mmol/L BUN 14 (7-17) mg/dL Creatinine 0.58 (0.52-1.04) mg/dL Est GFR (CKD-EPI)AfAm >90 (>60 ml/min/1.73 sqM) Est GFR (CKD-EPI)NonAf >90 (>60 ml/min/1.73 sqM) Glucose 116 H (74-99) mg/dL Plasma Lactic Acid Valerio 1.2 (0.7-2.0) mmol/L Calcium 8.5 (8.4-10.2) mg/dL Magnesium 1.9 (1.6-2.3) mg/dL Total Bilirubin 0.6 (0.2-1.3) mg/dL AST 14 (14-36) U/L ALT 11 (4-34) U/L Alkaline Phosphatase 34 L (38-126) U/L Troponin I 0.013 (0.000-0.034) ng/mL C-Reactive Protein (<1.0) mg/dL Total Protein 5.6 L (6.3-8.2) g/dL Albumin 2.9 L (3.5-5.0) g/dL Coronavirus (PCR) (Not Detectd) Influenza Type A RNA (Not Detectd) Influenza Type B (PCR) (Not Detectd) Legionella Source Urine Legionella Ag (Negative) 08/02/21 08/02/21 08/02/21 Range/Units 19:10 19:10 19:10 WBC (3.8-10.6) k/uL RBC (3.80-5.40) m/uL Hgb (11.4-16.0) gm/dL Hct (34.0-46.0) % MCV (80.0-100.0) fL MCH (25.0-35.0) pg MCHC (31.0-37.0) g/dL RDW (11.5-15.5) % Plt Count (150-450) k/uL MPV Neutrophils % % Lymphocytes % % Monocytes % % Eosinophils % % Basophils % % Neutrophils # (1.3-7.7) k/uL Lymphocytes # (1.0-4.8) k/uL Monocytes # (0-1.0) k/uL Eosinophils # (0-0.7) k/uL Basophils # (0-0.2) k/uL Hypochromasia Sodium (137-145) mmol/L Potassium (3.5-5.1) mmol/L Chloride (98-107) mmol/L Carbon Dioxide (22-30) mmol/L Anion Gap mmol/L BUN (7-17) mg/dL Creatinine (0.52-1.04) mg/dL Est GFR (CKD-EPI)AfAm (>60 ml/min/1.73 sqM) Est GFR (CKD-EPI)NonAf (>60 ml/min/1.73 sqM) Glucose (74-99) mg/dL Plasma Lactic Acid Valerio (0.7-2.0) mmol/L Calcium (8.4-10.2) mg/dL Magnesium (1.6-2.3) mg/dL Total Bilirubin (0.2-1.3) mg/dL AST (14-36) U/L ALT (4-34) U/L Alkaline Phosphatase (38-126) U/L Troponin I (0.000-0.034) ng/mL C-Reactive Protein 17.9 H (<1.0) mg/dL Total Protein (6.3-8.2) g/dL Albumin (3.5-5.0) g/dL Coronavirus (PCR) Not Detected (Not Detectd) Influenza Type A RNA Not Detected (Not Detectd) Influenza Type B (PCR) Not Detected (Not Detectd) Legionella Source Urine Legionella Ag (Negative) - EKG Data EKG Comments: EKG reveals normal sinus rhythm with a rate of 70. Normal intervals. Normal axis. Nonspecific T-wave abnormalities, no evidence of ST elevation. No morphology. (Kong Diaz) Disposition <Kong Diaz - Last Filed: 08/02/21 20:25> <Inna Campos - Last Filed: 08/04/21 12:31> Clinical Impression: Hypokalemia, Abscess of right lung without pneumonia Disposition: ADMITTED IP TO THIS HOSP
[2021-08-02] MEDS ORDERED: VANCOMYCIN 1,250 MG in SODIUM CHLORIDE 0.9% 250 ML IVPB STA (19:13)
[2021-08-02 19:27] LABS: Basophils % (A) 0 %; Eosinophils % (A) 0 %; HCT 46.7 % (34.0-46.0); Hypochromasia Marked; Lymphocytes # (A) 1.3 k/uL (1.0-4.8); Lymphocytes % (A) 14 %; MCH 29.7 pg (25.0-35.0); MCHC 30.6 g/dL (31.0-37.0); Mean Platelet Volume 6.6; Monocytes # (A) 0.5 k/uL (0-1.0); Monocytes % (A) 6 %; Neutrophils # (A) 7.6 k/uL (1.3-7.7); Neutrophils % (A) 79 %; Platelet Count 243 k/uL (150-450); RBC 4.82 m/uL (3.80-5.40); WBC 9.6 k/uL (3.8-10.6)
[2021-08-02 19:28] LABS: HGB 14.3 gm/dL (11.4-16.0)
[2021-08-02 19:39] LABS: ALT 11 U/L (4-34); AST 14 U/L (14-36); African American GFR (CKD) >90 (>60 ml/min/1.73 sqM); Albumin 2.9 g/dL (3.5-5.0); Alkaline Phosphatase 34 U/L (38-126); Anion Gap 5 mmol/L; Blood Urea Nitrogen 14 mg/dL (7-17); Calcium 8.5 mg/dL (8.4-10.2); Carbon Dioxide 33 mmol/L (22-30); Chloride 97 mmol/L (98-107); Glucose 116 mg/dL (74-99); Magnesium 1.9 mg/dL (1.6-2.3); Non-African American GFR(CKD) >90 (>60 ml/min/1.73 sqM); Potassium 2.9 mmol/L (3.5-5.1); Sodium 135 mmol/L (137-145); Total Bilirubin 0.6 mg/dL (0.2-1.3); Total Protein 5.6 g/dL (6.3-8.2)
[2021-08-02] MEDS ORDERED: POTASSIUM CHLORIDE ER 20 MEQ TAB.ER PO STA (20:00)
[2021-08-02] MEDS ORDERED: ALBUTEROL NEBULIZED 2.5 MG/3 ML INHALATION PRN (20:11)
[2021-08-02] MEDS: 0.9% NACL WITH KCL 40 MEQ/L 1,000 ML IV SCH (21:31)
[2021-08-03] MEDS: CEFEPIME 2 GM in SODIUM CHLORIDE 0.9% 100 ML IVPB SCH ×3 (05:02→19:40)
[2021-08-03 06:54] LABS: Glucose,Whole Blood 95 mg/dL (75-99)
[2021-08-03] MEDS ORDERED: ALBUTEROL NEBULIZED 2.5 MG/3 ML INHALATION SCH (08:00)
[2021-08-03] MEDS: IPRATROPIUM-ALBUTEROL 3 ML NEB INHALATION SCH ×4 (08:05→21:25)
--- NOTE | 2021-08-03 09:00 | XR ---
EXAMINATION TYPE: XR chest 2V DATE OF EXAM: 08/03/2021 COMPARISON: 07/06/2021. CT 08/02/2021 HISTORY: 71-year-old female pneumonia TECHNIQUE: PA and lateral views FINDINGS: Heart normal size. Coronary artery stent. Descending thoracic aortic endovascular stent graft. Hyperi nflation. Large cavity filling the right midlung redemonstrated measuring up to 15.0 cm with air-flui d level. Some minimal patchy density at the right base similar to CT. IMPRESSION: Large 15.0 cm cavity filling the right midlung and containing air-fluid level. Consider cavitary pneu monia or superinfected pneumatocele. Background COPD and mild patchy infiltrate at the right base. Re latively similar compared to the recent CT.
[2021-08-03] MEDS: 0.9% NACL WITH KCL 40 MEQ/L 1,000 ML IV SCH (10:10)
[2021-08-03 11:24] LABS: Glucose,Whole Blood 89 mg/dL (75-99)
--- NOTE | 2021-08-03 11:33 | P.CNPUL ---
History of Present Illness Consult date: 08/03/21 Chief complaint: Shortness of breath and the lung abscess History of present illness: This is a 71-year-old female patient who was recently hospitalized for an extensive right lung pneumonia. The patient was seen in our office yesterday the patient was found to have a large opacity involving the right lung. Based on that, the patient was referred for a computed tomography scan of the chest and the patient was found to have a 10 x 11 x 12 cm large mix fluid and air rounded collection in the right upper lobe very much consistent with a lung abscess. There was also adjacent consolidation. At the same time, the patient has postsurgical changes involving the thoracic aorta with endovascular stent. Based on this, the patient was admitted to the hospital. Patient is currently on 4 L about 2 by nasal cannula. She has a congested cough. No significant fever. No significant sputum production. The blood work is showing a white cell count 9.6 with hemoglobin 14.3 and a platelet count of 243. Creatinine is at 14 with a creatinine of 0.5 and a sodium level of 135. We think that this was a gram-negative pneumonia knowing that the patient's previous OK that occurred back in June 2021 showed a possible culture with pseudomonas aeruginosa. At the time of discharge she was given antibiotics the patient was given a prednisone burst taper. She was not given antibiotics based on my review of the records. At the same time, the patient was given anticoagulation for a pulmonary embolism in the right middle/right lower lobe pulmonary artery secondary branches. She also has history approximately atrial fibrillation and current cardiac rhythm is sinus. She has chronic hypoxic respiratory failure maintained on oxygen at 4 L per minute nasal cannula. She has advanced COPD and she has an FEV1 of 49% of predicted. She is currently admitted to the hospital for further Review of Systems Constitutional Constitutional: no significant weight gain, lethargy ( patient is fluctuating in her weight. After gaining around 20 pounds she lost a total of 8 pounds since his last visit to my she lost an additional 4 pounds that she is in the process of losing more.) Eyes Eyes: no dry eyes, no vision change, no irritation ENMT Mouth/Throat: snoring Cardiovascular Cardiovascular: no chest pain, no arm pain on exertion, no shortness of breath when lying down, no palpitations, no known heart murmur, shortness of breath when walking (AAA post stent) Respiratory Respiratory: cough, wheezing, shortness of breath, sleep apnea Gastrointestinal Gastrointestinal: no abdominal pain, no nausea, no vomiting, no constipation, normal appetite, no diarrhea, not vomiting blood, no dyspepsia, no GERD Genitourinary Genitourinary: no incontinence, no difficulty urinating, no hematuria, no increased frequency Musculoskeletal Musculoskeletal: no muscle aches, no muscle weakness, no arthralgias/joint pain, no back pain Integumentary Skin: no abnormal mole, no jaundice, no rashes, no laceration Neurologic Neurologic: no loss of consciousness, no weakness, no numbness, no seizures, no dizziness, no migraines, no headaches, no tremor Psychiatric Psych: no depression, no sleep disturbances, feeling safe in a relationship, no alcohol abuse, no anxiety, no hallucinations, no suicidal thoughts Endocrine Endocrine: fatigue Hematologic/Lymphatic Hematologic/Lymphatic no swollen glands, no bruising, no excessive bleeding Allergic/Immunologic Allergy/Immunologic: no runny nose, no sinus pressure, no itching, no hives, no frequent sneezing Past Medical History Past Medical History: Coronary Artery Disease (CAD), Cancer, COPD, CVA/TIA, Hyperlipidemia, Hypertension, Myocardial Infarction ([place]), Sleep Apnea/CPAP/BIPAP Additional Past Medical History / Comment(s): CAD, previous history of coronary stent, thoracic aortic aneurysm with previous endovascular stent grafting, remote history of tuberculosis back in 1985, twice a with an AHI of 21, not utilizing her BiPAP, skin cancer, history of CVA with residual right-sided weakness, obesity with a previous history of sleep gastrectomy, COPD Last Myocardial Infarction Date:: 01/25/2006 History of Any Multi-Drug Resistant Organisms: None Reported Past Surgical History: Bariatric Surgery, Cholecystectomy, Heart Catheterization With Stent, Hernia Repair Additional Past Surgical History / Comment(s): Cyst removed from thyroid, HEART CATH WITH STENT X2, SURGERY FOR Thoracic Aortic Aneurysm, Ventral hernia repair with mesh July 2017. EGD, COLONOSCOPY. sleeve gastrectomy 05/19/18 (Dr. Jose Hamilton) Past Anesthesia/Blood Transfusion Reactions: Postoperative Nausea & Vomiting (PONV) Date of Last Stent Placement:: 2009 Past Psychological History: Depression Smoking Status: Former smoker Past Alcohol Use History: Occasional Past Drug Use History: Marijuana - Past Family History Father Family Medical History: COPD, Myocardial Infarction ([place]) Mother Family Medical History: Hypertension Additional Family Medical History / Comment(s): Pacemaker, heart issues Sister(s) Family Medical History: Cancer Medications and Allergies Home Medications Medication Instructions Recorded Confirmed Type Albuterol Nebulized [Ventolin 2.5 mg INHALATION RT-QID PRN 09/14/20 08/02/21 History Nebulized] Fluticasone/Umeclidin/Vilanter 1 puff INHALATION RT-DAILY 06/27/21 08/02/21 History [Trelegy Ellipta 100-62.5-25] Omeprazole 40 mg PO DAILY 06/27/21 08/02/21 History Apixaban [Eliquis] 5 mg PO BID 30 Days #60 tab 07/05/21 08/02/21 Rx Furosemide [Lasix] 20 mg PO DAILY #30 tab 07/06/21 08/02/21 Rx Ipratropium-Albuterol Nebulize 3 ml INHALATION RT-QID ml 07/07/21 08/02/21 Rx [Duoneb 0.5 mg-3 mg/3 ml Soln] Metoprolol Tartrate [Lopressor] 50 mg PO TID@0800,1400,199908/02/21 08/02/21 History Potassium Chloride ER [K-Dur 10] 10 meq PO DAILY 08/02/21 08/02/21 History Allergies Allergy/AdvReac Type Severity Reaction Status Date / Time Penicillins Allergy Rash/Hives Verified 08/02/21 19:54 Sulfa (Sulfonamide Allergy Rash/Hives Verified 08/02/21 19:54 Antibiotics) sulfamethoxazole Allergy Rash/Hives Verified 08/02/21 19:54 [From Bactrim] trimethoprim [From Bactrim] Allergy Rash/Hives Verified 08/02/21 19:54 levofloxacin [From Levaquin] AdvReac Nausea & Verified 08/02/21 19:54 Vomiting Physical Exam Vitals: Vital Signs Temp Pulse Pulse Resp BP BP Pulse Ox 08/03/21 08:00 98.5 F 63 18 128/71 100 08/03/21 07:24 98.7 F 72 18 132/87 95 08/03/21 05:03 72 18 123/72 98 08/02/21 20:11 68 16 123/81 95 08/02/21 20:03 66 08/02/21 19:57 64 08/02/21 17:01 97.6 F 64 16 119/79 99 Intake and Output 08/02/21 08/03/21 08/03/21 22:59 06:59 14:59 Other: Weight 72.121 kg General Appearance no diaphoresis, no respiratory distress, speech not interrupted by breaths, no dyspnea, no pallor, not cachectic, well nourished, appears well, morbid obesity. She is on 4 liters HEENT no pursed lip breathing, no jugular venous distention, no mucous membrane cyanosis, no perioral cyanosis, mallampati classification: class 1, Mallampati Classification: Class 4 Chest no retractions, no sternocleidomastoid muscle contractions, no supraclavicular retractions, no intercostal retractions, decreased air movement, no rhonchi, no hyperinflation, barrel chest, prolonged expiratory wheezing, decreased air movement on the right compared to the left Heart no right ventricular heave, no distant heart sounds, no s3 gallop, (normal) jugular vein: jugular venous distention: by 0cm GI bowel sounds: hyperactive (borborygmi), bowel sounds: diminished or absent Extremities no cyanosis, no clubbing Neurologic no decreased mental status, no somnolence, no confusion Examination of the skin revealed no evidence of significant rashes, suspicious appearing nevi or other concerning lesions. Results - Laboratory Findings CBC and BMP: 08/02/21 19:10 08/02/21 19:10 ABG WBC 9.6 k/uL (3.8-10.6) 08/02/21 19:10 RBC 4.82 m/uL (3.80-5.40) 08/02/21 19:10 Hgb 14.3 gm/dL (11.4-16.0) D 08/02/21 19:10 Hct 46.7 % (34.0-46.0) H 08/02/21 19:10 MCV 97.0 fL (80.0-100.0) 08/02/21 19:10 MCH 29.7 pg (25.0-35.0) 08/02/21 19:10 MCHC 30.6 g/dL (31.0-37.0) L 08/02/21 19:10 RDW 14.0 % (11.5-15.5) 08/02/21 19:10 Plt Count 243 k/uL (150-450) 08/02/21 19:10 MPV 6.6 08/02/21 19:10 Neutrophils % 79 % 08/02/21 19:10 Lymphocytes % 14 % 08/02/21 19:10 Monocytes % 6 % 08/02/21 19:10 Eosinophils % 0 % 08/02/21 19:10 Basophils % 0 % 08/02/21 19:10 Neutrophils # 7.6 k/uL (1.3-7.7) 08/02/21 19:10 Lymphocytes # 1.3 k/uL (1.0-4.8) 08/02/21 19:10 Monocytes # 0.5 k/uL (0-1.0) 08/02/21 19:10 Eosinophils # 0.0 k/uL (0-0.7) 08/02/21 19:10 Basophils # 0.0 k/uL (0-0.2) 08/02/21 19:10 Hypochromasia Marked 08/02/21 19:10 Sodium 135 mmol/L (137-145) L 08/02/21 19:10 Potassium 2.9 mmol/L (3.5-5.1) L 08/02/21 19:10 Chloride 97 mmol/L (98-107) L 08/02/21 19:10 Carbon Dioxide 33 mmol/L (22-30) H 08/02/21 19:10 Anion Gap 5 mmol/L 08/02/21 19:10 BUN 14 mg/dL (7-17) 08/02/21 19:10 Creatinine 0.58 mg/dL (0.52-1.04) 08/02/21 19:10 Est GFR (CKD-EPI)AfAm >90 (>60 ml/min/1.73 sqM) 08/02/21 19:10 Est GFR (CKD-EPI)NonAf >90 (>60 ml/min/1.73 sqM) 08/02/21 19:10 Glucose 116 mg/dL (74-99) H 08/02/21 19:10 POC Glucose (mg/dL) 95 mg/dL (75-99) 08/03/21 06:53 POC Glu Construction [employer] Miah Lambert 08/03/21 06:53 Plasma Lactic Acid Valerio 1.2 mmol/L (0.7-2.0) 08/02/21 19:10 Calcium 8.5 mg/dL (8.4-10.2) 08/02/21 19:10 Magnesium 1.9 mg/dL (1.6-2.3) 08/02/21 19:10 Total Bilirubin 0.6 mg/dL (0.2-1.3) 08/02/21 19:10 AST 14 U/L (14-36) 08/02/21 19:10 ALT 11 U/L (4-34) 08/02/21 19:10 Alkaline Phosphatase 34 U/L (38-126) L 08/02/21 19:10 Troponin I 0.013 ng/mL (0.000-0.034) 08/02/21 19:10 C-Reactive Protein 17.9 mg/dL (<1.0) H 08/02/21 19:10 Total Protein 5.6 g/dL (6.3-8.2) L 08/02/21 19:10 Albumin 2.9 g/dL (3.5-5.0) L 08/02/21 19:10 Coronavirus (PCR) Not Detected (Not Detectd) 08/02/21 19:10 Influenza Type A RNA Not Detected (Not Detectd) 08/02/21 19:10 Influenza Type B (PCR) Not Detected (Not Detectd) 08/02/21 19:10 Abnormal lab findings: Abnormal Labs 08/02/21 08/02/21 08/02/21 19:10 19:10 19:10 Hct 46.7 H MCHC 30.6 L Sodium 135 L Potassium 2.9 L Chloride 97 L Carbon Dioxide 33 H Glucose 116 H Alkaline Phosphatase 34 L C-Reactive Protein 17.9 H Total Protein 5.6 L Albumin 2.9 L - Diagnostic Findings Chest x-ray: image reviewed CT scan - chest: image reviewed Assessment and Plan Plan: 1. Right lung abscess. The patient has a complex 10 x 11 x 12 cm fluid-filled cavity in the right upper lobe consistent with a lung abscess that followed an extensive gram-negative right lung pneumonia. The patient was Hospital as back in June 2021 and at that time the patient had Pseudomonas bacteremia secondary to pneumonia. The patient will be started back on IV Fortaz as broad- spectrum antibiotic coverage. We'll consult interventional radiology for percutaneous drainage of this lung mass. She may also need a cardiothoracic consultation evaluation. 2. He of an extensive right lung pneumonia with secondary pseudomonas aeruginosa septicemia hospitalized back in June 2021. The blood culture was positive on 07/03/2021 3. History of pulmonary embolism diagnosed during her most recent hospitalization and the patient was found to have clotting in the right lower lobe pulmonary artery branches and the patient was given Eliquis. 4. Severe COPD with an FEV1 of 49% of predicted at baseline 5. Acute spontaneous right-sided pneumothorax, status post smallbore chest tube placement and subsequent removal, follow-up chest x-ray shows no evidence of pneumothorax 6. Paroxysmal atrial fibrillation, currently in sinus mechanism 7. History of underlying coronary artery disease 8. History of endovascular aortic repair 9 continue abdominal wall hernia 10 hypertension 11 history of CVA, Plan The patient with broad-spectrum antibiotics. Based on previous microbiology, I'm going to put the patient on IV cefepime and she was able to tolerate cefepime without any major difficulties during her last admission Consult interventional radiology regarding percutaneous drainage of this large right lung abscess, would like to maintain a PICC care within the abscess and utilized CPAP if needed for improved drainage. We'll reculture the fluid post pigtail catheter insertion [employer] Head cardithoracic surgery Resume all medication and hold anticoagulation for now Provide the patient incentive spirometer Check coagulation profile including PT/PTT INR
[2021-08-03] MEDS ORDERED: VANCOMYCIN 1,250 MG in SODIUM CHLORIDE 0.9% 250 ML IVPB SCH (13:00)
[2021-08-03 13:02] LABS: African American GFR (CKD) >90 (>60 ml/min/1.73 sqM); Anion Gap 3 mmol/L; Blood Urea Nitrogen 10 mg/dL (7-17); Calcium 8.3 mg/dL (8.4-10.2); Carbon Dioxide 26 mmol/L (22-30); Chloride 112 mmol/L (98-107); Glucose 82 mg/dL (74-99); Non-African American GFR(CKD) >90 (>60 ml/min/1.73 sqM); Potassium 3.7 mmol/L (3.5-5.1); Sodium 141 mmol/L (137-145)
[2021-08-03 13:13] LABS: Prothrombin Time 10.4 sec (9.0-12.0)
[2021-08-03] MEDS: METOPROLOL TARTRATE 50 MG TAB PO SCH ×2 (13:38→20:59)
[2021-08-03] MEDS: PANTOPRAZOLE 40 MG TABLET PO SCH (13:38)
--- NOTE | 2021-08-03 16:21 | P.GSCN ---
History of Present Illness Consult date: 08/03/21 Reason for Consult: Empyema, alteplase installation after placement of pigtail catheter Requesting physician: Celia Holland History of present illness: This is a 71-year-old female patient who follows on an outpatient basis with Dr. Phan. She has a previous medical history of severe COPD with home oxygen dependence, coronary artery disease with myocardial infarction and PCI, thoracic aortic aneurysm with endovascular repair, previous CVA with residual right-sided weakness, obstructive sleep apnea without home CPAP use, tuberculosis in 1985, obesity with sleeve gastrectomy, previous tobacco dependence, and recent pulmonary embolism on Eliquis for anticoagulation. She was hospitalized last month for shortness of breath with subsequent diagnoses of acute pulmonary embolism, pneumonia, and pneumothorax. We were involved in her case at that time for management of her pneumothorax which resolved with thoravent placement. Her pneumonia was treated with antibiotics, her embolism was treated with ant icoagulation, and she was eventually discharged to [facility] for rehabilitation. 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 She was sent to the hospital for a computed tomography scan of the chest and was found to have a 10 x 11 x 12 cm mass which appeared consistent with lung abscess. She was admitted to the hospital for treatment and started on IV antibiotics. Consultation was placed to interventional radiology for placement of pigtail catheter. Subsequently consultation was placed to cardiothoracic surgery for lytic instillation once pigtail catheter has been placed. Review of Systems Review of systems was completed and was negative except as noted - Respiratory Reports as per HPI, Reports dyspnea Past Medical History Past Medical History: Atrial Fibrillation, Coronary Artery Disease (CAD), Cancer, COPD, CVA/TIA, Hyperlipidemia, Hypertension, Myocardial Infarction ([place]), Pneumonia, Pulmonary Embolus (PE), Respiratory Disorder, Sleep Apnea/CPAP/BIPAP, Vascular Disorder Additional Past Medical History / Comment(s): Pt recently admitted to [facility] on 06/27/21 with R PE, R sided pneumonia, spontaneous pneumothorax with thoravent, hypokalemia, hyponatremia. Other hx: Chronic hypoxic respiratory failure ith home oxygen at 4L/NC ATC, advanced COPD, JOSE EDUARDO, paroxysmal Afib, [place] 2005, CVA with R sided weakness, 1985 TB exposure/pt treated, hiatal hernia, skin cancer with removal. Last Myocardial Infarction Date:: 01/25/2006 History of Any Multi-Drug Resistant Organisms: None Reported Past Surgical History: Bariatric Surgery, Cholecystectomy, Heart Catheterization With Stent, Hernia Repair Additional Past Surgical History / Comment(s): Cyst removed from thyroid, HEART CATH WITH STENT X2, endovascular procedure for aortic aneurysm, Ventral hernia repair with mesh July 2017. EGD, COLONOSCOPY. sleeve gastrectomy 05/19/18 (Dr. Jose Hamilton), skin cancer removals. Past Anesthesia/Blood Transfusion Reactions: Postoperative Nausea & Vomiting (PONV) Date of Last Stent Placement:: 2009 Smoking Status: Former smoker - Past Family History Father Family Medical History: COPD, Myocardial Infarction ([place]) Mother Family Medical History: Hypertension Additional Family Medical History / Comment(s): Pacemaker, heart issues Sister(s) Family Medical History: Cancer Medications and Allergies Home Medications Medication Instructions Recorded Confirmed Type Albuterol Nebulized [Ventolin 2.5 mg INHALATION RT-QID PRN 09/14/20 08/02/21 History Nebulized] Fluticasone/Umeclidin/Vilanter 1 puff INHALATION RT-DAILY 06/27/21 08/02/21 History [Trelegy Ellipta 100-62.5-25] Omeprazole 40 mg PO DAILY 06/27/21 08/02/21 History Apixaban [Eliquis] 5 mg PO BID 30 Days #60 tab 07/05/21 08/02/21 Rx Furosemide [Lasix] 20 mg PO DAILY #30 tab 07/06/21 08/02/21 Rx Ipratropium-Albuterol Nebulize 3 ml INHALATION RT-QID ml 07/07/21 08/02/21 Rx [Duoneb 0.5 mg-3 mg/3 ml Soln] Metoprolol Tartrate [Lopressor] 50 mg PO TID@0800,1400,2000 08/02/21 08/02/21 History Potassium Chloride ER [K-Dur 10] 10 meq PO DAILY 08/02/21 08/02/21 History Allergies Allergy/AdvReac Type Severity Reaction Status Date / Time Penicillins Allergy Rash/Hives Verified 08/02/21 19:54 Sulfa (Sulfonamide Allergy Rash/Hives Verified 08/02/21 19:54 Antibiotics) sulfamethoxazole Allergy Rash/Hives Verified 08/02/21 19:54 [From Bactrim] trimethoprim [From Bactrim] Allergy Rash/Hives Verified 08/02/21 19:54 levofloxacin [From Levaquin] AdvReac Nausea & Verified 08/02/21 19:54 Vomiting Surgical - Exam Vital Signs Temp Pulse Resp BP Pulse Ox 97.6 F 64 16 119/79 99 08/02/21 17:01 08/02/21 17:01 08/02/21 17:01 08/02/21 17:01 08/02/21 17:01 CONSTITUTIONAL: Awake and alert, appears comfortable, cooperative, well- developed, well-nourished, no pain, no acute distress EYES: Pupils equal, round, reactive to light, normal ocular movement ENT: Moist mucous membranes without oral lesions present NECK: No masses, no bruits, trachea midline RESPIRATORY: Lungs sounds diminished bilaterally, right greater than left. Respirations even, nonlabored. Currently on 4 L nasal cannula with oxygen saturation 99%. Strong cough. CARDIOVASCULAR: S1, S2 present. Regular rate and rhythm, sinus rhythm on telemetry. Palpable peripheral pulses bilaterally. Trace bilateral lower extremity edema present. No calf pain or tenderness noted. GASTROINTESTINAL: Abdomen soft, nontender, nondistended without masses or organomegaly noted. There is no rebound or guarding present. Active bowel sounds present 4 quadrants. GENITOURINARY: Deferred INTEGUMENTARY: Skin is warm and dry NEUROLOGIC: Cranial nerves II through XII intact, normal coordination, no obvio us motor or sensory deficits, speech is normal MUSKULOSKELETAL: Able to move all extremities, strength equal bilaterally, normal posture PSYCHIATRIC: Alert and oriented to person place and time, appropriate affect, intact judgment and insight Results - Labs 08/02/21 19:10 08/03/21 12:28 Abnormal Lab Results - Last 24 Hours (Table) 08/02/21 08/02/21 08/02/21 Range/Units 19:10 19:10 19:10 Hct 46.7 H (34.0-46.0) % MCHC 30.6 L (31.0-37.0) g/dL Sodium 135 L (137-145) mmol/L Potassium 2.9 L (3.5-5.1) mmol/L Chloride 97 L (98-107) mmol/L Carbon Dioxide 33 H (22-30) mmol/L Creatinine (0.52-1.04) mg/dL Glucose 116 H (74-99) mg/dL Calcium (8.4-10.2) mg/dL Alkaline Phosphatase 34 L (38-126) U/L C-Reactive Protein 17.9 H (<1.0) mg/dL Total Protein 5.6 L (6.3-8.2) g/dL Albumin 2.9 L (3.5-5.0) g/dL 08/03/21 Range/Units 12:28 Hct (34.0-46.0) % MCHC (31.0-37.0) g/dL Sodium (137-145) mmol/L Potassium (3.5-5.1) mmol/L Chloride 112 H (98-107) mmol/L Carbon Dioxide (22-30) mmol/L Creatinine 0.43 L (0.52-1.04) mg/dL Glucose (74-99) mg/dL Calcium 8.3 L (8.4-10.2) mg/dL Alkaline Phosphatase (38-126) U/L C-Reactive Protein (<1.0) mg/dL Total Protein (6.3-8.2) g/dL Albumin (3.5-5.0) g/dL Diabetes panel 08/02/21 08/03/21 Range/Units 19:10 12:28 Sodium 135 L 141 (137-145) mmol/L Potassium 2.9 L 3.7 (3.5-5.1) mmol/L Chloride 97 L 112 H (98-107) mmol/L Carbon Dioxide 33 H 26 (22-30) mmol/L BUN 14 10 (7-17) mg/dL Creatinine 0.58 0.43 L (0.52-1.04) mg/dL Glucose 116 H 82 (74-99) mg/dL Calcium 8.5 8.3 L (8.4-10.2) mg/dL AST 14 (14-36) U/L ALT 11 (4-34) U/L Alkaline Phosphatase 34 L (38-126) U/L Total Protein 5.6 L (6.3-8.2) g/dL Albumin 2.9 L (3.5-5.0) g/dL Calcium panel 08/02/21 08/03/21 Range/Units 19:10 12:28 Calcium 8.5 8.3 L (8.4-10.2) mg/dL Albumin 2.9 L (3.5-5.0) g/dL Pituitary panel 08/02/21 08/03/21 Range/Units 19:10 12:28 Sodium 135 L 141 (137-145) mmol/L Potassium 2.9 L 3.7 (3.5-5.1) mmol/L Chloride 97 L 112 H (98-107) mmol/L Carbon Dioxide 33 H 26 (22-30) mmol/L BUN 14 10 (7-17) mg/dL Creatinine 0.58 0.43 L (0.52-1.04) mg/dL Glucose 116 H 82 (74-99) mg/dL Calcium 8.5 8.3 L (8.4-10.2) mg/dL Adrenal panel 08/02/21 08/03/21 Range/Units 19:10 12:28 Sodium 135 L 141 (137-145) mmol/L Potassium 2.9 L 3.7 (3.5-5.1) mmol/L Chloride 97 L 112 H (98-107) mmol/L Carbon Dioxide 33 H 26 (22-30) mmol/L BUN 14 10 (7-17) mg/dL Creatinine 0.58 0.43 L (0.52-1.04) mg/dL Glucose 116 H 82 (74-99) mg/dL Calcium 8.5 8.3 L (8.4-10.2) mg/dL Total Bilirubin 0.6 (0.2-1.3) mg/dL AST 14 (14-36) U/L ALT 11 (4-34) U/L Alkaline Phosphatase 34 L (38-126) U/L Total Protein 5.6 L (6.3-8.2) g/dL Albumin 2.9 L (3.5-5.0) g/dL - Imaging Chest x-ray: report reviewed, image reviewed CT scan - chest: report reviewed, image reviewed Assessment and Plan Assessment: 1. Right pulmonary mass, likely abscess 2. Recent hospitalization for pneumonia, pulmonary embolism, pneumothorax 3. History of severe COPD with home oxygen dependence 4. History of coronary artery disease with myocardial infarction and PCI 5. History of thoracic aortic aneurysm with endovascular repair 6. Previous CVA with residual right-sided weakness 7. Obstructive sleep apnea without home CPAP use 8. Tuberculosis in 1985 9. Obesity with previous sleeve gastrectomy 10. Previous tobacco dependence Plan: The patient was seen and examined at the bedside. Chart/diagnostics were reviewed. Will discuss with Dr. Joseph. Patient is currently in no distress, remains on 4 L nasal cannula. Appears comfortable at this time. Awaiting transport to go to radiology for placement of right-sided pigtail catheter by interventional radiology. We will instill alteplase/dornase tomorrow morning. Will continue to monitor daily x-rays. Wean O2 as tolerated. Bronchodilators, antibiotics per pulmonology. Medical management of other comorbidities per primary care service. More recommendations to follow Thank you Dr. Holland for this consult. We will continue to follow along with you. Time with Patient: Greater than 30
[2021-08-03 17:01] LABS: Glucose,Whole Blood 82 mg/dL (75-99)
[2021-08-03] MEDS ORDERED: AZITHROMYCIN 500 MG in SODIUM CHLORIDE 0.9% 250 ML IVPB SCH (19:00)
[2021-08-03] MEDS: ACETAMINOPHEN TAB 325 MG TAB PO PRN (19:43)
[2021-08-03 21:24] LABS: Glucose,Whole Blood 84 mg/dL (75-99)
--- NOTE | 2021-08-03 21:35 | P.HPIM ---
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 Chronic stable medical conditions include coronary artery disease with stent, some mild right-sided weakness from prior stroke, hypertension, hyperlipidemia, obstructive sleep apnea uses CPAP machine, TB in 1985, hiatal hernia, surgery fo r thoracic aortic aneurysm, sleeve gastrectomy in [address] Hamilton. Home oxygen 4 L Patient was in the hospital from June 27 through 07/07/2021. Was admitted with right-sided pneumothorax, A. fib with rapid ventricular rate, acute pulmonary embolism. Was discharged to rehab. Was DO NOT RESUSCITATE. had presented today to Dr. 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 Patient's had a congested cough. No fever no chills. Appetite is fair. Does use a walker. Lives with her daughter. X-ray had shown at the office are larger pasty all combining the right lung. With the large mix of fluid in there. Concern for lung abscess. As patient is admitted. She is not expectora ting any sputum though she has a congested cough. Review of systems: GEN.: Tired EYES: None HEENT: None NECK: None RESPIRATORY: As above CARDIOVASCULAR: None GASTROINTESTINAL: None GENITOURINARY: None MUSCULOSKELETAL: None LYMPHATICS: None HEMATOLOGICAL: None PSYCHIATRY: None NEUROLOGICAL: None Past medical history to include: Coronary artery disease with stent, COPD, stroke with some mild right-sided weakness, hyperlipidemia, hypertension, obstructive sleep apnea uses CPAP, TB 1985, hiatal hernia, sleeve gastrectomy in 2018, surgery for thoracic aortic aneurysm, 4 L of oxygen at home, atrial fibrillation, pulmonary embolism June 2021 Social history: Started smoking age of 15 stopped in 2011. One pack a day. Alcohol occasionally. Lives with her daughter. Uses walker. Family history: [place], pacemaker, COPD Physical examination: VITAL SIGNS: 97.6, 64, 16, 119/79, 95% on 4 L GENERAL: BMI 29.1, reclining in bed, awake, tired. EYES: Pupils equal. Conjunctiva normal. HEENT: External appearance of nose and ears normal, oral cavity grossly normal. NECK: JVD not raised; masses not palpable. HEART: First and second heart sounds are normal; no edema. LUNGS: Respiratory rate increased; decreased breath sounds. ABDOMEN: Soft, nontender, liver spleen not palpable, no masses palpable. PSYCH: Alert and oriented x3; mood and affect normall. MUSCULOSKELETAL:No Clubbing/cyanosis;muscles-grossly intact NEUROLOGICAL: Cranial nerves grossly intact; no facial asymmetry, power and sensation grossly intact. LYMPHATICS: No lymph nodes palpable in the axilla and neck INVESTIGATIONS, reviewed in the clinical context: White count 9.6 hemoglobin 14.3 platelets 243 sodium 135 potassium 2.9 creatinine 0.58 CRP 17.9 albumin 2.9 Coronavirus/influenza type A/influenza type B/urine Legionella antigen: Not detected EKG tracing personally reviewed by me-[email or web address]. Sinus rhythm. Nonspecific T- wave changes Chest x-ray film personally reviewed by [id number] lung mass with a air- fluid level Computed tomography scan chest with contrast: Large mix fluid and air rounded collection in the right upper lobe dense/11/12 cm. Congestion subsegment consolidation. Bronchopulmonary fistula not excluded. See report for more details Assessment and plan: -Large mix fluid and air collection in the right upper lobe measuring 10/11/12 cm. . Later this afternoon. Pigtail catheter was placed by interventional radiology. Continue with bronchodilators. IV vancomycin/cefepime/Zithromax -Right-sided pneumonia suspected gram-negative organism: IV cefepime, vancomycin -Paroxysmal atrial fibrillation Currently sinus rhythm Lopressor 12.5 mg 3 times a day -Chronic hypoxic respiratory failure from COPD On home oxygen 4 -COPD exacerbation in an ex-smoker- on bronchodilators, -Coronary artery disease with stent Lopressor, -Mild right hemiparesis from prior stroke -Hypokalemia: Replace Replace potassium -Essential hypertension, Lopressor 50 mg 3 times a day -Obstructive sleep apnea uses CPAP continue the same -Hiatal hernia -History of sleeve gastrectomy Pigtail catheter was placed into initial radiology. IV vancomycin, cefepime, Zithromax. Resume home medications. Replace potassium. Resume eliquis when okay with pulmonary. Discussed with patient. Given the complexity and severity of patient's condition expect the patient to be in the hospital at least for 2 overnights Past Medical History Past Medical History: Coronary Artery Disease (CAD), Cancer, COPD, CVA/TIA, Hyperlipidemia, Hypertension, Myocardial Infarction ([place]), Sleep Apnea/CPAP/BIPAP Additional Past Medical History / Comment(s): CAD, previous history of coronary stent, thoracic aortic aneurysm with previous endovascular stent grafting, remote history of tuberculosis back in 1985, twice a with an AHI of 21, not u tilizing her BiPAP, skin cancer, history of CVA with residual right-sided weakness, obesity with a previous history of sleep gastrectomy, COPD Last Myocardial Infarction Date:: 01/25/2006 History of Any Multi-Drug Resistant Organisms: None Reported Past Surgical History: Bariatric Surgery, Cholecystectomy, Heart Catheterization With Stent, Hernia Repair Additional Past Surgical History / Comment(s): Cyst removed from thyroid, HEART CATH WITH STENT X2, SURGERY FOR Thoracic Aortic Aneurysm, Ventral hernia repair with mesh July 2017. EGD, COLONOSCOPY. sleeve gastrectomy 05/19/18 (Dr. Jose Hamilton) Past Anesthesia/Blood Transfusion Reactions: Postoperative Nausea & Vomiting (PONV) Date of Last Stent Placement:: 2009 Past Psychological History: Depression Smoking Status: Former smoker Past Alcohol Use History: Occasional Past Drug Use History: Marijuana - Past Family History Father Family Medical History: COPD, Myocardial Infarction ([place]) Mother Family Medical History: Hypertension Additional Family Medical History / Comment(s): Pacemaker, heart issues Sister(s) Family Medical History: Cancer Medications and Allergies Home Medications Medication Instructions Recorded Confirmed Type Albuterol Nebulized [Ventolin 2.5 mg INHALATION RT-QID PRN 09/14/20 08/02/21 History Nebulized] Fluticasone/Umeclidin/Vilanter 1 puff INHALATION RT-DAILY 06/27/21 08/02/21 History [Krysten Medrano 100-62.5-25] Omeprazole 40 mg PO DAILY 06/27/21 08/02/21 History Apixaban [Eliquis] 5 mg PO BID 30 Days #60 tab 07/05/21 08/02/21 Rx Furosemide [Lasix] 20 mg PO DAILY #30 tab 07/06/21 08/02/21 Rx Ipratropium-Albuterol Nebulize 3 ml INHALATION RT-QID ml 07/07/21 08/02/21 Rx [Duoneb 0.5 mg-3 mg/3 ml Soln] Metoprolol Tartrate [Lopressor] 50 mg PO TID@0800,1400,199908/02/21 08/02/21 History Potassium Chloride ER [K-Dur 10] 10 meq PO DAILY 08/02/21 08/02/21 History Allergies Allergy/AdvReac Type Severity Reaction Status Date / Time Penicillins Allergy Rash/Hives Verified 08/02/21 19:54 Sulfa (Sulfonamide Allergy Rash/Hives Verified 08/02/21 19:54 Antibiotics) sulfamethoxazole Allergy Rash/Hives Verified 08/02/21 19:54 [From Bactrim] trimethoprim [From Bactrim] Allergy Rash/Hives Verified 08/02/21 19:54 levofloxacin [From Levaquin] AdvReac Nausea & Verified 08/02/21 19:54 Vomiting Physical Exam Vitals: Vital Signs Temp Pulse Pulse Resp BP BP Pulse Ox 08/03/21 08:00 98.5 F 63 18 128/71 100 08/03/21 07:24 98.7 F 72 18 132/87 95 08/03/21 05:03 72 18 123/72 98 08/02/21 20:11 68 16 123/81 95 08/02/21 20:03 66 08/02/21 19:57 64 08/02/21 17:01 97.6 F 64 16 119/79 99 Intake and Output 08/02/21 08/03/21 08/03/21 22:59 06:59 14:59 Other: Weight 72.121 kg Results CBC & Chem 7: 08/02/21 19:10 08/03/21 12:28 Labs: Abnormal Lab Results - Last 24 Hours (Table) 08/02/21 08/02/21 08/02/21 Range/Units 19:10 19:10 19:10 Hct 46.7 H (34.0-46.0) % MCHC 30.6 L (31.0-37.0) g/dL Sodium 135 L (137-145) mmol/L Potassium 2.9 L (3.5-5.1) mmol/L Chloride 97 L (98-107) mmol/L Carbon Dioxide 33 H (22-30) mmol/L Glucose 116 H (74-99) mg/dL Alkaline Phosphatase 34 L (38-126) U/L C-Reactive Protein 17.9 H (<1.0) mg/dL Total Protein 5.6 L (6.3-8.2) g/dL Albumin 2.9 L (3.5-5.0) g/dL
[2021-08-04] MEDS: VANCOMYCIN 1,250 MG in SODIUM CHLORIDE 0.9% 250 ML IVPB SCH ×2 (00:18→16:04)
[2021-08-04] MEDS: CEFEPIME 2 GM in SODIUM CHLORIDE 0.9% 100 ML IVPB SCH ×3 (03:44→21:04)
[2021-08-04] MEDS: 0.9% NACL WITH KCL 40 MEQ/L 1,000 ML IV SCH ×3 (03:44→21:05)
[2021-08-04 07:18] LABS: Glucose,Whole Blood 96 mg/dL (75-99)
[2021-08-04 07:46] LABS: Appearance,BF Turbid
[2021-08-04] MEDS: IPRATROPIUM-ALBUTEROL 3 ML NEB INHALATION SCH ×4 (08:23→19:52)
[2021-08-04 08:57] LABS: African American GFR (CKD) >90 (>60 ml/min/1.73 sqM); Anion Gap 1 mmol/L; Blood Urea Nitrogen 8 mg/dL (7-17); Calcium 8.6 mg/dL (8.4-10.2); Carbon Dioxide 28 mmol/L (22-30); Chloride 112 mmol/L (98-107); Glucose 118 mg/dL (74-99); Non-African American GFR(CKD) >90 (>60 ml/min/1.73 sqM); Potassium 4.3 mmol/L (3.5-5.1); Sodium 141 mmol/L (137-145)
[2021-08-04 09:04] LABS: Basophils % (A) 0 %; Eosinophils # (A) 0.1 k/uL (0-0.7); Eosinophils % (A) 1 %; HCT 34.8 % (34.0-46.0); Hypochromasia Marked; Lymphocytes # (A) 1.2 k/uL (1.0-4.8); Lymphocytes % (A) 17 %; MCH 29.9 pg (25.0-35.0); MCHC 29.8 g/dL (31.0-37.0); MCV 100.2 fL (80.0-100.0); Macrocytosis Slight; Mean Platelet Volume 6.8; Monocytes # (A) 0.2 k/uL (0-1.0); Monocytes % (A) 3 %; Neutrophils # (A) 5.4 k/uL (1.3-7.7); Neutrophils % (A) 76 %; Platelet Count 301 k/uL (150-450); RBC 3.47 m/uL (3.80-5.40); RDW 13.8 % (11.5-15.5); WBC 7.1 k/uL (3.8-10.6)
--- NOTE | 2021-08-04 09:04 | CT ---
EXAMINATION TYPE: CT chest tube insertion DATE OF EXAM: 08/03/2021 COMPARISON: 08/02/2021 HISTORY: right lung abscess CT DLP: 1252 mGycm The procedure is discussed with the patient, the risks, complications, benefits and alternatives, wer e discussed and any questions were answered. Informed consent was obtained. The patient is placed p cristina on the CT table, prepped and draped in the usual sterile fashion. Utilizing a 22-gauge Chiba needle access into large fluid collection and there was placement of a 1.0 18 guidewire. Conversion to a 0.035. Serial dilation 8 Kuwaiti and placement 8 Kuwaiti drainage cathete r. Sample obtained and sent to pathology for analysis.. All elements of maximal barrier and sterile technique were utilized. The patient remained stable throughout the procedure with no immediate post procedural complication. IMPRESSION: 1. Successful CT guided right-sided chest tube insertion for suspected pulmonary abscess.
[2021-08-04 09:06] LABS: HGB 10.4 gm/dL (11.4-16.0)
[2021-08-04] MEDS: PANTOPRAZOLE 40 MG TABLET PO SCH (09:33)
[2021-08-04] MEDS: METOPROLOL TARTRATE 50 MG TAB PO SCH ×3 (09:33→21:05)
--- NOTE | 2021-08-04 09:56 | P.PN ---
Subjective Progress Note Date: 08/04/21 Principal diagnosis: Right pulmonary mass, likely abscess. Recent hospitalization for pneumonia, pulmonary embolism, pneumothorax. Previous medical history of severe COPD with home oxygen dependence, coronary artery disease with myocardial infarction and PCI, thoracic aortic aneurysm with endovascular repair, previous CVA with residual right-sided weakness, obstructive sleep apnea without home CPAP use, tuberculosis in 1985, obesity with previous sleeve gastrectomy, previous tobacco dependence The patient was seen and examined on the cardiac observation unit. She was ly ing in bed in no acute distress. States she did get sleep last night. Does complain of some minimal pain at the pigtail catheter insertion site but denies any pain otherwise, states breathing is better than on admission. Right pigtail catheter was placed yesterday by interventional radiology, so far she's had 300 mL vaz thick fluid drained, no air leak present. She is actively using incentive spirometer achieving 1500 mL. Remains on IV antibiotics per pulmonology. No other new concerns. Objective - Vital Signs Vital signs: Vital Signs Temp 99.1 F 08/04/21 07:45 Pulse 64 08/04/21 08:35 Resp 16 08/04/21 08:00 BP 144/55 08/04/21 07:45 Pulse Ox 98 08/04/21 07:45 Intake & Output 08/03/21 08/04/21 08/04/21 18:59 06:59 18:59 Output Total 210 Balance -210 Weight 72.121 kg Output: Drainage 210 Right Posterior Chest 210 Other: Voiding Method Toilet Toilet # Voids 1 - Exam CONSTITUTIONAL: Appears comfortable, cooperative, no acute distress RESPIRATORY: Lungs sounds diminished bilaterally. Respirations even, nonlabored. Currently on 4 L nasal cannula with oxygen saturation 99%. Able to achieve 1500 mL on incentive spirometry. Strong cough. CARDIOVASCULAR: S1, S2 present. Regular rate and rhythm. Palpable peripheral pulses bilaterally. Trace bilateral lower extremity edema present. No calf pain or tenderness noted. GASTROINTESTINAL: Abdomen soft, nontender, nondistended. Active bowel sounds present 4 quadrants. Tolerating diet. GENITOURINARY: Continues to void clear, yellow urine INTEGUMENTARY: Skin is warm and dry NEUROLOGIC: Cranial nerves II through XII intact MUSKULOSKELETAL: Able to move all extremities, strength equal bilaterally PSYCHIATRIC: Alert and oriented to person place and time, appropriate affect, intact judgment and insight INVASIVE LINES AND TUBES: Right-sided pigtail catheter present and connected to atrium to continuous wall suction, 300 mL vaz thick fluid present in the atrium, no air leak present. - Allied health notes Allied health notes reviewed: nursing - Labs CBC & Chem 7: 08/04/21 07:53 08/04/21 07:53 Labs: Abnormal Lab Results - Last 24 Hours (Table) 08/03/21 08/04/21 Range/Units 12:28 07:53 Chloride 112 H 112 H (98-107) mmol/L Creatinine 0.43 L 0.44 L (0.52-1.04) mg/dL Glucose 118 H (74-99) mg/dL Calcium 8.3 L (8.4-10.2) mg/dL Microbiology - Last 24 Hours (Table) 08/03/21 15:45 Body Fluid Culture - Preliminary Aspirate 08/03/21 15:45 Acid Fast Bacilli Culture - Preliminary Aspirate 08/03/21 15:45 Anaerobic Culture - Preliminary Aspirate 08/03/21 15:45 Fungal Culture - Preliminary Aspirate 08/02/21 19:15 Blood Culture - Preliminary Blood No Growth after 24 hours 08/02/21 19:00 Blood Culture - Preliminary Blood No Growth after 24 hours - Imaging and Cardiology Chest x-ray: image reviewed Assessment and Plan Assessment: 1. Right pulmonary mass, likely abscess, status post placement of right-sided pigtail catheter by interventional radiology 2. Recent hospitalization for pneumonia, pulmonary embolism, pneumothorax 3. History of severe COPD with home oxygen dependence 4. History of coronary artery disease with myocardial infarction and PCI 5. History of thoracic aortic aneurysm with endovascular repair 6. Previous CVA with residual right-sided weakness 7. Obstructive sleep apnea without home CPAP use 8. Tuberculosis in 1985 9. Obesity with previous sleeve gastrectomy 10. Previous tobacco dependence Plan: 1. Will instill alteplase and dornase through pigtail catheter 2. Wean O2 as tolerated. Bronchodilators, antibiotics per pulmonology 3. Will continue to monitor daily x-rays 4. Increase activity as tolerated 5. Medical management of other comorbidities per primary care service. 6. More recommendations to follow Time with Patient: Greater than 30
[2021-08-04] MEDS ORDERED: ALTEPLASE 10 MG in SODIUM CHLORIDE 0.9% 50 ML IRRIGATION ONE (10:00)
[2021-08-04] MEDS ORDERED: DORNASE ALFA 5 MG in SODIUM CHLORIDE 0.9% 50 ML IRRIGATION ONE (10:00)
--- NOTE | 2021-08-04 10:28 | XR ---
EXAMINATION TYPE: XR chest 1V portable DATE OF EXAM: 08/04/2021 COMPARISON: 08/03/2021 INDICATION: Lung abscess TECHNIQUE: Single frontal view of the chest is obtained. FINDINGS: The heart size is normal. The pulmonary vasculature is normal. Stent placement through the thoracic aorta is evident. There is a large opacification with a small air-fluid level within the right lung. This is currently estimated at 13 cm which is slightly smaller than comparison. There is been interval placement of the catheter. Air-fluid level may remain in the upper portion of this structure. IMPRESSION: 1. Slightly diminished size of right lung abscess. Catheter is within this region. Continued follow-u p is recommended.
[2021-08-04 11:50] LABS: Glucose,Whole Blood 88 mg/dL (75-99)
--- NOTE | 2021-08-04 11:54 | P.PN ---
Subjective Progress Note Date: 08/04/21 This is a 71-year-old female patient who was recently hospitalized for an extensive right lung pneumonia. The patient was seen in our office yesterday the patient was found to have a large opacity involving the right lung. Based on that, the patient was referred for a computed tomography scan of the chest and the patient was found to have a 10 x 11 x 12 cm large mix fluid and air rounded collection in the right upper lobe very much consistent with a lung abscess. There was also adjacent consolidation. At the same time, the patient has postsurgical changes involving the thoracic aorta with endovascular stent. Based on this, the patient was admitted to the hospital. Patient is currently on 4 L about 2 by nasal cannula. She has a congested cough. No significant fever. No significant sputum production. The blood work is showing a white cell count 9.6 with hemoglobin 14.3 and a platelet count of 243. Creatinine is at 14 with a creatinine of 0.5 and a sodium level of 135. We think that this was a gram-negative pneumonia knowing that the patient's previous MD that occurred back in June 2021 showed a possible culture with pseudomonas aeruginosa. At the time of discharge she was given antibiotics the patient was given a prednisone burst taper. She was not given antibiotics based on my review of the records. At the same time, the patient was given anticoagulation for a pulmonary embolism in the right middle/right lower lobe pulmonary artery secondary branches. She also has history approximately atrial fibrillation and current cardiac rhythm is sinus. She has chronic hypoxic respiratory failure maintained on oxygen at 4 L per minute nasal cannula. She has advanced COPD and she has an FEV1 of 49% of predicted. She is currently admitted to the hospital for further The patient is seen today in 08/04/2021 in follow-up on the regular medical floor. She is currently resting comfortably in bed. Awake and alert in no acute distress. Maintaining O2 saturations in the mid 90s on 4 L/m per nasal cannula. Afebrile. Hemodynamically stable. This morning she had undergone a CT-guided right-sided chest tube insertion for suspected pulmonary as abscess. She had a pigtail catheter placed by interventional radiology. 300 mL of purulent thick drainage was returned. Follow-up chest x-ray reveals slightly diminished size of the right lung abscess. Catheters within the region. She had been seen by CT services and alteplase injection will be performed as well. Cultures pending. White count 7.1. Hemoglobin 10.4. Sodium 141. Potassium 4.3. Creatinine 0.44. She's been initiated on vancomycin, cefepime and azithromycin. Continued on bronchodilators. We'll add incentive spirometer. Objective - Vital Signs Vital signs: Vital Signs Temp 99.1 F 08/04/21 07:45 Pulse 64 08/04/21 08:35 Resp 16 08/04/21 08:00 BP 144/55 08/04/21 07:45 Pulse Ox 98 08/04/21 07:45 Intake & Output 08/03/21 08/04/21 08/04/21 18:59 06:59 18:59 Output Total 210 Balance -210 Weight 72.121 kg Output: Drainage 210 Right Posterior Chest 210 Other: Voiding Method Toilet Toilet # Voids 1 - Exam GENERAL EXAM: Alert, pleasant 71-year-old female patient, on 4 L nasal cannula, comfortable in no apparent distress. HEAD: Normocephalic. EYES: Normal reaction of pupils, equal size. NOSE: Clear with pink turbinates. THROAT: No erythema or exudates. NECK: No masses, no JVD. CHEST: No chest wall deformity. LUNGS: Equal air entry with dullness and scattered rhonchi over the right lung. CVS: S1 and S2 normal with no audible murmur, regular rhythm. ABDOMEN: No hepatosplenomegaly, normal bowel sounds, no guarding or rigidity. SPINE: No scoliosis or deformity SKIN: No rashes CENTRAL NERVOUS SYSTEM: No focal deficits, tone is normal in all 4 extremities. EXTREMITIES: There is no peripheral edema. No clubbing, no cyanosis. Peripheral pulses are intact. - Labs CBC & Chem 7: 08/04/21 07:53 08/04/21 07:53 Labs: Abnormal Lab Results - Last 24 Hours (Table) 08/03/21 08/04/21 08/04/21 Range/Units 12:28 07:53 07:53 RBC 3.47 L (3.80-5.40) m/uL Hgb 10.4 L D (11.4-16.0) gm/dL MCV 100.2 H (80.0-100.0) fL MCHC 29.8 L (31.0-37.0) g/dL Chloride 112 H 112 H (98-107) mmol/L Creatinine 0.43 L 0.44 L (0.52-1.04) mg/dL Glucose 118 H (74-99) mg/dL Calcium 8.3 L (8.4-10.2) mg/dL Microbiology - Last 24 Hours (Table) 08/03/21 15:45 Gram Stain - Preliminary Aspirate Body Fluid Culture - Preliminary 08/03/21 15:45 Acid Fast Bacilli Culture - Preliminary Aspirate 08/03/21 15:45 Anaerobic Culture - Preliminary Aspirate 08/03/21 15:45 Fungal Culture - Preliminary Aspirate 08/02/21 19:15 Blood Culture - Preliminary Blood No Growth after 24 hours 08/02/21 19:00 Blood Culture - Preliminary Blood No Growth after 24 hours Assessment and Plan Assessment: 1 Right lung abscess. The patient has a complex 10 x 11 x 12 cm fluid-filled cavity in the right upper lobe consistent with a lung abscess that followed an extensive gram-negative right lung pneumonia. The patient was Hospital as back in June 2021 and at that time the patient had Pseudomonas bacteremia second renee to pneumonia. The patient is currently on vancomycin, cefepime and azithromycin. She did receive a pigtail catheter placement today in interventional radiology with approximately 300 ML's of purulent fluid returned as far. Cultures pending. She also received alteplase and dornase per CT servi gume. 2 History of an extensive right lung pneumonia with secondary pseudomonas aeruginosa septicemia hospitalized back in June 2021. The blood culture was positive on 07/03/2021 3 History of pulmonary embolism diagnosed during her most recent hospitalization and the patient was found to have clotting in the right lower lobe pulmonary artery branches and the patient was given Eliquis. 4 Severe COPD with an FEV1 of 49% of predicted at baseline 5 Acute spontaneous right-sided pneumothorax, status post smallbore chest tube placement and subsequent removal, follow-up chest x-ray shows no evidence of pneumothorax 6 Paroxysmal atrial fibrillation, currently in sinus mechanism 7 History of underlying coronary artery disease 8 History of endovascular aortic repair 9 Abdominal wall hernia 10 Hypertension 11 History of CVA Plan The patient was seen and evaluated today Pigtail catheter placed with 300 mL of purulent drainage returned Continued on vancomycin, cefepime, azithromycin Cultures are pending Received alteplase/dornase today her CT services Add incentive spirometer Continue bronchodilators Increase her activity as tolerated Titrate her oxygen as tolerated Follow-up labs and chest x-ray in a.m. We will continue to follow I, the cosigning physician, performed a history & physical examination of the patient. Lungs sounds with scattered rhonchi, diminished over the right lung. Maintaining good O2 saturations in the 90s on 4 L/m per nasal cannula. I discussed the assessment and plan of care with my nurse practitioner, Gaby Alcazar. I attest to the above note as dictated by her.
--- NOTE | 2021-08-04 17:08 | P.PN ---
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 Chronic stable medical conditions include coronary artery disease with stent, some mild right-sided weakness from prior stroke, hypertension, hyperlipidemia, obstructive sleep apnea uses CPAP machine, TB in 1985, hiatal hernia, surgery for thoracic aortic aneurysm, sleeve gastrectomy [place] [address] Hamilton. Home oxygen 4 L Patient was in the hospital from June 27 through 07/07/2021. Was admitted with right-sided pneumothorax, A. fib with rapid ventricular rate, acute pulmonary embolism. Was discharged to rehab. Was DO NOT RESUSCITATE. had presented today to Dr. Moreau hours office for senior data warehouse architect visit. Patient's had a congested cough. No fever no chills. Appetite is fair. Does use a walker. Lives with her daughter. X-ray had shown at the office are larger pasty all combining the right lung. With the large mix of fluid in there. Concern for lung abscess. As patient is admitted. She is not expe ctorating any sputum though she has a congested cough. Pigtail catheter was placed in the chest/abscess. Started on IV cefepime, vancomycin. August 04: About 300 mL of vaz take fluid drained today. Decreased appetite. Tired. 4 L nasal cannula. Review of systems: Was done for constitutional, cardiovascular, GI, pulmonary. relevant finding as above Active Medications Acetaminophen (Acetaminophen Tab 325 Mg Tab) 650 mg PO Q6HR PRN PRN Reason: Fever and/ or Pain Last Admin: 08/03/21 19:43 Dose: 650 mg Documented by: Albuterol Sulfate (Albuterol Nebulized 2.5 Mg/3 Ml) 2.5 mg INHALATION RT-Q4H PRN PRN Reason: Shortness Of Breath Or Wheezing Albuterol/Ipratropium (Ipratropium-Albuterol 3 Ml Neb) 3 ml INHALATION RT-QID [facility] Last Admin: 08/04/21 16:51 Dose: 3 ml Documented by: Potassium Chloride/Sodium Chloride (Ns-Kcl 40 Meq/L Iv Solution) 1,000 mls @ 83 mls/hr IV .Q12H3M [facility] Last Admin: 08/04/21 16:03 Dose: 83 mls/hr Documented by: Cefepime HCl 2 gm/ Sodium (Chloride) 100 mls @ 25 mls/hr IVPB Q8H [facility] Last Admin: 08/04/21 13:00 Dose: 25 mls/hr Documented by: Vancomycin HCl 1,250 mg/ (Sodium Chloride) 250 mls @ 125 mls/hr IVPB Q12H [facility] Last Admin: 08/04/21 16:04 Dose: 125 mls/hr Documented by: Metoprolol Tartrate (Metoprolol Tartrate 50 Mg Tab) 50 mg PO TID@0800,1400,2000 [facility] Last Admin: 08/04/21 16:03 Dose: 50 mg Documented by: Miscellaneous Information (Pneumonia Protocol Utilized 1 Each Misc) 1 each PO ONCE PRN PRN Reason: Per Protocol Miscellaneous Information (Vancomycin Trough Due 1 Each Misc) 0 each MISCELLANE DIRECTED ONE Stop: 08/05/21 11:01 Pantoprazole Sodium (Pantoprazole 40 Mg Tablet) 40 mg PO AC-[id number] [facility] Last Admin: 08/04/21 09:33 Dose: 40 mg Documented by: Past medical history to include: Coronary artery disease with stent, COPD, stroke with some mild right-sided weakness, hyperlipidemia, hypertension, obstructive sleep apnea uses CPAP, TB 1985, hiatal hernia, sleeve gastrectomy in 2017, surgery for thoracic aortic aneurysm, 4 L of oxygen at home, atrial fibrillation, pulmonary embolism June 2021 Social history: Started smoking age of 15 stopped in 2011. One pack a day. Alcohol occasionally. Lives with her daughter. Uses walker. Family history: NM, pacemaker, COPD Physical examination: VITAL SIGNS: 98.2, 81, 18, 143/80, 95% on 4 L GENERAL: , Laying in bed, awake, tired. EYES: Pupils equal. Conjunctiva normal. HEENT: External appearance of nose and ears normal, oral cavity grossly normal. NECK: JVD not raised; masses not palpable. HEART: First and second heart sounds are normal; no edema. LUNGS: Respiratory rate increased; decreased breath sounds. Right-sided pigtail catheter ABDOMEN: Soft, nontender, liver spleen not palpable, no masses palpable. PSYCH: Alert and oriented x3; mood and affect tired. MUSCULOSKELETAL:No Clubbing/cyanosis;muscles-grossly intact NEUROLOGICAL: Cranial nerves grossly intact; no facial asymmetry, power and se nsation grossly intact. INVESTIGATIONS, reviewed in the clinical context: August 04: White count 7.1 hemoglobin 10.4 potassium 4.3 creatinine 0.44 White count 9.6 hemoglobin 14.3 platelets 243 sodium 135 potassium 2.9 creatinine 0.58 CRP 17.9 albumin 2.9 Coronavirus/influenza type A/influenza type B/urine Legionella antigen: Not detected EKG tracing personally reviewed by me-[email or web address]. Sinus rhythm. Nonspecific T- wave changes Chest x-ray film personally reviewed by [id number] lung mass with a air- fluid level Computed tomography scan chest with contrast: Large mix fluid and air rounded collection in the right upper lobe dense/11/12 cm. Congestion subsegment consolidation. Bronchopulmonary fistula not excluded. See report for more details Assessment and plan: -Large mix fluid and air collection in the right upper lobe measuring 10/11/12 cm. lung abscess. Slow to respond August 03: Pigtail catheter was placed by interventional radiology. Continue with bronchodilators. IV vancomycin/cefepime. Cultures pending. -Right-sided pneumonia suspected gram-negative organism: Slow to respond IV cefepime, vancomycin -Paroxysmal atrial fibrillation Currently sinus rhythm Lopressor 12.5 mg 3 times a day -Chronic hypoxic respiratory failure from COPD On home oxygen 4 -Pulmonary embolism June 2021 Eliquis. -COPD exacerbation in an ex-smoker- on bronchodilators, -Coronary artery disease with stent Lopressor, -Mild right hemiparesis from prior stroke -Hypokalemia: Replace Replace potassium -Essential hypertension, Lopressor 50 mg 3 times a day -Obstructive sleep apnea uses CPAP continue the same -Hiatal hernia -History of sleeve gastrectomy Oxygen 4 L. IV vancomycin, cefepime, encourage oral intake. Given history of recent PE. We'll put the patient on Lovenox. In place of eliquis. Discussed with Dr. Holland.
[2021-08-04] MEDS ORDERED: ENOXAPARIN 40 MG/0.4 ML SYRINGE SQ SCH ×2 (21:00)
[2021-08-04] MEDS: ENOXAPARIN 80 MG/0.8 ML SYRINGE SQ SCH (21:00)
[2021-08-04 21:02] LABS: Glucose,Whole Blood 88 mg/dL (75-99)
[2021-08-05] MEDS: ACETAMINOPHEN TAB 325 MG TAB PO PRN ×3 (00:25→21:10)
[2021-08-05] MEDS: VANCOMYCIN 1,250 MG in SODIUM CHLORIDE 0.9% 250 ML IVPB SCH ×2 (01:17→12:03)
[2021-08-05] MEDS: CEFEPIME 2 GM in SODIUM CHLORIDE 0.9% 100 ML IVPB SCH ×3 (03:53→21:09)
[2021-08-05] MEDS: ENOXAPARIN 80 MG/0.8 ML SYRINGE SQ SCH ×2 (06:20→17:37)
[2021-08-05 06:41] LABS: Basophils % (A) 0 %; Eosinophils # (A) 0.1 k/uL (0-0.7); Eosinophils % (A) 1 %; HCT 32.9 % (34.0-46.0); HGB 9.9 gm/dL (11.4-16.0); Hypochromasia Marked; Lymphocytes # (A) 1.7 k/uL (1.0-4.8); Lymphocytes % (A) 14 %; MCH 29.2 pg (25.0-35.0); MCHC 29.9 g/dL (31.0-37.0); MCV 97.6 fL (80.0-100.0); Mean Platelet Volume 7.1; Monocytes # (A) 0.6 k/uL (0-1.0); Monocytes % (A) 5 %; Neutrophils # (A) 9.3 k/uL (1.3-7.7); Neutrophils % (A) 79 %; Platelet Count 267 k/uL (150-450); RBC 3.37 m/uL (3.80-5.40); RDW 13.4 % (11.5-15.5); WBC 11.9 k/uL (3.8-10.6)
[2021-08-05 06:53] LABS: Glucose,Whole Blood 76 mg/dL (75-99)
--- NOTE | 2021-08-05 07:01 | XR ---
EXAMINATION TYPE: XR chest 1V portable DATE OF EXAM: 08/05/2021 COMPARISON: 08/04/2021 HISTORY: Right lung abscess TECHNIQUE: Single frontal view of the chest is obtained. FINDINGS: There is a pigtail drainage catheter within the right mid lung presumably within the right lung abscess. The abscess has decreased significantly in size and opacity compared to the prior stud y. There are probable small bilateral pleural effusions. There is no pneumothorax. There is a aortic stent in the thoracic aorta. The osseous structures are intact IMPRESSION: Significant Interval reduction in the right lung abscess which contains a pigtail draina ge catheter. The remainder of the exam is unchanged.
[2021-08-05] MEDS: METOPROLOL TARTRATE 50 MG TAB PO SCH ×4 (08:00→21:14)
[2021-08-05] MEDS: PANTOPRAZOLE 40 MG TABLET PO SCH (08:00)
[2021-08-05] MEDS: IPRATROPIUM-ALBUTEROL 3 ML NEB INHALATION SCH ×4 (08:20→20:17)
[2021-08-05 09:23] LABS: African American GFR (CKD) 121.5 (60.0-200.0); Albumin 2.7 g/dL (3.8-4.9); Albumin/Globulin Ratio 1.29 (1.60-3.17); Anion Gap 3.2 mmol/L (10.00-18.00); BUN/Creat Ratio 14.75 Ratio (12.00-20.00); Blood Urea Nitrogen 5.9 mg/dL (9.0-27.0); Calcium 8.3 mg/dL (8.7-10.3); Carbon Dioxide 29.8 mmol/L (20.0-27.5); Globulin 2.1 g/dL (1.6-3.3); Non-African American GFR(CKD) 104.8 (60.0-200.0); Potassium 3.9 mmol/L (3.5-5.5); Total Bilirubin 0.4 mg/dL (0.30-1.20); Total Protein 4.8 g/dL (6.2-8.2)
[2021-08-05] MEDS: 0.9% NACL WITH KCL 40 MEQ/L 1,000 ML IV SCH ×2 (10:22→23:35)
--- NOTE | 2021-08-05 10:53 | P.PN ---
Subjective Progress Note Date: 08/05/21 Principal diagnosis: Right pulmonary mass, likely abscess. Recent hospitalization for pneumonia, pulmonary embolism, pneumothorax. Past medical history significant for severe COPD with home oxygen dependence, coronary artery disease with myocardial infarction and PCI, thoracic aortic aneurysm with endovascular repair, previous CVA with residual right-sided weakness, obstructive sleep apnea without home CPAP use, tuberculosis in 1985, obesity with previous sleeve gastrectomy, previous tobacco dependence POD #[address] guided right-sided pigtail catheter insertion by interventional radiology. The patient was seen in follow-up today 08/05/2021 at her bedside on the medical oncology unit. Currently she is lying in bed, is awake, alert and oriented 3 and is in no acute apparent distress. Denies any complaints of pain or shortness of breath at this time. Her right sided chest pigtail catheter remains in place and connected to bedside atrium with intermittent air leak present. Continues on low continuous wall suction. 175 mL of output in the last 8 hours and 750 mL output in the last 24 hours of vaz-colored tenacious drainage. She is achieving 1000 mL on her incentive spirometry. Oxygen saturation are 99% on 4 L nasal cannula. IV antibiotics per pulmonary/critical care medicine recommendations. She has been afebrile for the last 24 hours. She was given a dose of alteplase/dornase per her pigtail catheter yesterday. Her chest x-ray this morning shows significant interval reduction in the right lung mass. Objective - Vital Signs Vital signs: Vital Signs Temp 97.7 F 08/05/21 05:46 Pulse 55 L 08/05/21 08:29 Resp 18 08/05/21 05:46 BP 136/71 08/05/21 05:46 Pulse Ox 98 08/05/21 08:22 Intake & Output 08/04/21 08/05/21 08/05/21 18:59 06:59 18:59 Output Total 175 Balance -175 Output: Chest Tube Drainage 175 right posterior chest 175 Other: Voiding Method Toilet Toilet Toilet # Voids 2 # Bowel Movements 1 - Exam CONSTITUTIONAL: Appears comfortable, cooperative, no acute distress RESPIRATORY: Lungs sounds diminished bilaterally. Respirations symmetrical and nonlabored. Currently on 4 L nasal cannula with oxygen saturation 99%. Able to achieve 1000 mL on incentive spirometry. Strong cough. CARDIOVASCULAR: S1, S2 present. Regular rate and rhythm. Palpable peripheral pulses bilaterally. Trace bilateral lower extremity edema present. No calf pain or tenderness noted. GASTROINTESTINAL: Abdomen soft, nontender, nondistended. Active bowel sounds present 4 quadrants. Tolerating diet. GENITOURINARY: Continues to void clear, yellow urine INTEGUMENTARY: Skin is warm and dry NEUROLOGIC: Cranial nerves II through XII intact MUSKULOSKELETAL: Able to move all extremities, strength equal bilaterally PSYCHIATRIC: Alert and oriented to person place and time, appropriate affect, intact judgment and insight INVASIVE LINES AND TUBES: Right-sided pigtail catheter present and connected to atrium to low continuous wall suction, intermittent air leak is present, 175 mL vaz thick fluid in the last 8 hours and 750 mL output in the last 24 hours. - Allied health notes Allied health notes reviewed: nursing - Labs CBC & Chem 7: 08/05/21 05:59 08/05/21 05:59 Labs: Abnormal Lab Results - Last 24 Hours (Table) 08/05/21 08/05/21 Range/Units 05:59 05:59 WBC 11.9 H (3.8-10.6) k/uL RBC 3.37 L (3.80-5.40) m/uL Hgb 9.9 L (11.4-16.0) gm/dL Hct 32.9 L (34.0-46.0) % MCHC 29.9 L (31.0-37.0) g/dL Neutrophils # 9.3 H (1.3-7.7) k/uL Carbon Dioxide 29.8 H (20.0-27.5) mmol/L Anion Gap 3.20 L (10.00-18.00) mmol/L BUN 5.9 L (9.0-27.0) mg/dL Creatinine 0.4 L (0.6-1.5) mg/dL Calcium 8.3 L (8.7-10.3) mg/dL AST 8 L (13-35) U/L ALT 6 L (8-44) U/L Alkaline Phosphatase 26 L (41-126) U/L Total Protein 4.8 L (6.2-8.2) g/dL Albumin 2.7 L (3.8-4.9) g/dL Albumin/Globulin Ratio 1.29 L (1.60-3.17) g/dL Microbiology - Last 24 Hours (Table) 08/03/21 15:45 Gram Stain - Preliminary Aspirate Body Fluid Culture - Preliminary Gram Neg Bacilli 08/02/21 19:15 Blood Culture - Preliminary Blood No Growth after 48 hours 08/02/21 19:00 Blood Culture - Preliminary Blood No Growth after 48 hours 08/03/21 15:45 Acid Fast Bacilli Smear - Final Aspirate Acid Fast Bacilli Culture - Preliminary - Imaging and Cardiology Chest x-ray: report reviewed, image reviewed Assessment and Plan Assessment: 1. Right pulmonary mass, likely abscess, status post placement of right-sided pigtail catheter by interventional radiology 2. Recent hospitalization for pneumonia, pulmonary embolism, pneumothorax 3. History of severe COPD with home oxygen dependence 4. History of coronary artery disease with myocardial infarction and PCI 5. History of thoracic aortic aneurysm with endovascular repair 6. Previous CVA with residual right-sided weakness 7. Obstructive sleep apnea without home CPAP use 8. Tuberculosis in 1985 9. Obesity with previous sleeve gastrectomy 10. Previous tobacco dependence Plan: 1. Will instill alteplase and dornase through pigtail catheter today which will be her second dose. 2. Wean O2 as tolerated. Bronchodilators, antibiotics per pulmonology/critical care medicine management. 3. Will continue to monitor daily chest x-rays. 4. Increase activity as tolerated. 5. Medical management of other comorbidities per primary care service. 6. More recommendations to follow based on patient's clinical course. Time with Patient: Greater than 30
[2021-08-05] MEDS ORDERED: VANCOMYCIN TROUGH DUE 1 EACH MISC MISCELLANE ONE (11:00)
[2021-08-05] MEDS ORDERED: ALTEPLASE 10 MG in SODIUM CHLORIDE 0.9% 50 ML IRRIGATION ONE (11:00)
[2021-08-05] MEDS ORDERED: DORNASE ALFA 5 MG in SODIUM CHLORIDE 0.9% 50 ML IRRIGATION ONE (11:00)
[2021-08-05 11:51] LABS: African American GFR (CKD) >90 (>60 ml/min/1.73 sqM); Anion Gap 1 mmol/L; Blood Urea Nitrogen 7 mg/dL (7-17); Calcium 7.9 mg/dL (8.4-10.2); Carbon Dioxide 25 mmol/L (22-30); Chloride 111 mmol/L (98-107); Glucose 85 mg/dL (74-99); Non-African American GFR(CKD) >90 (>60 ml/min/1.73 sqM); Potassium 3.8 mmol/L (3.5-5.1); Sodium 137 mmol/L (137-145)
[2021-08-05 12:22] LABS: Glucose,Whole Blood 78 mg/dL (75-99)
--- NOTE | 2021-08-05 13:49 | P.PN ---
Subjective Progress Note Date: 08/05/21 This is a 71-year-old female patient who was recently hospitalized for an extensive right lung pneumonia. The patient was seen in our office yesterday the patient was found to have a large opacity involving the right lung. Based on that, the patient was referred for a computed tomography scan of the chest and the patient was found to have a 10 x 11 x 12 cm large mix fluid and air rounded collection in the right upper lobe very much consistent with a lung abscess. There was also adjacent consolidation. At the same time, the patient has postsurgical changes involving the thoracic aorta with endovascular stent. Based on this, the patient was admitted to the hospital. Patient is currently on 4 L about 2 by nasal cannula. She has a congested cough. No significant fever. No significant sputum production. The blood work is showing a white cell count 9.6 with hemoglobin 14.3 and a platelet count of 243. Creatinine is at 14 with a creatinine of 0.5 and a sodium level of 135. We think that this was a gram-negative pneumonia knowing that the patient's previous SC that occurred back in June 2021 showed a possible culture with pseudomonas aeruginosa. At the time of discharge she was given antibiotics the patient was given a prednisone burst taper. She was not given antibiotics based on my review of the records. At the same time, the patient was given anticoagulation for a pulmonary embolism in the right middle/right lower lobe pulmonary artery secondary branches. She also has history approximately atrial fibrillation and current cardiac rhythm is sinus. She has chronic hypoxic respiratory failure maintained on oxygen at 4 L per minute nasal cannula. She has advanced COPD and she has an FEV1 of 49% of predicted. She is currently admitted to the hospital for further The patient is seen today in 08/04/2021 in follow-up on the regular medical floor. She is currently resting comfortably in bed. Awake and alert in no acute distress. Maintaining O2 saturations in the mid 90s on 4 L/m per nasal cannula. Afebrile. Hemodynamically stable. This morning she had undergone a CT-guided right-sided chest tube insertion for suspected pulmonary as abscess. She had a pigtail catheter placed by interventional radiology. 300 mL of purulent thick drainage was returned. Follow-up chest x-ray reveals slightly diminished size of the right lung abscess. Catheters within the region. She had been seen by CT services and alteplase injection will be performed as well. Cultures pending. White count 7.1. Hemoglobin 10.4. Sodium 141. Potassium 4.3. Creatinine 0.44. She's been initiated on vancomycin, cefepime and azithromycin. Continued on bronchodilators. We'll add incentive spirometer. The patient is seen today 08/05/2021 follow-up on the regular medical floor. She is awake and alert in no acute distress. Breathing easier today compared to yesterday. Maintaining O2 saturations in the low 90s on room air. She's been afebrile. Hemodynamically stable. Chest x-ray continues to show significant interval reduction in the right lung abscess which contains the pigtail drainage catheter. Preliminary pleural fluid cultures are positive for gram-negative bacilli. Blood cultures reveal no growth. White count 11.9. Hemoglobin 9.9. Platelets 267. Sodium 137. Potassium 3.8. Creatinine 0.43. Glucose 85. Vancomycin trough 13.7. She remains on vancomycin and cefepime. Objective - Vital Signs Vital signs: Vital Signs Temp 97.8 F 08/05/21 11:23 Pulse 53 L 08/05/21 11:23 Resp 18 08/05/21 11:23 BP 125/65 08/05/21 11:23 Pulse Ox 92 L 08/05/21 11:23 Intake & Output 08/04/21 08/05/21 08/05/21 18:59 06:59 18:59 Output Total 175 Balance -175 Output: Chest Tube Drainage 175 right posterior chest 175 Other: Voiding Method Toilet Toilet Toilet # Voids 2 1 # Bowel Movements 1 1 - Exam GENERAL EXAM: Alert, pleasant 71-year-old female patient, on room air, comfortable in no apparent distress. HEAD: Normocephalic. EYES: Normal reaction of pupils, equal size. NOSE: Clear with pink turbinates. THROAT: No erythema or exudates. NECK: No masses, no JVD. CHEST: No chest wall deformity. LUNGS: Equal air entry with dullness and scattered rhonchi over the right lung. Right sided pigtail catheter remains in place CVS: S1 and S2 normal with no audible murmur, regular rhythm. ABDOMEN: No hepatosplenomegaly, normal bowel sounds, no guarding or rigidity. SPINE: No scoliosis or deformity SKIN: No rashes CENTRAL NERVOUS SYSTEM: No focal deficits, tone is normal in all 4 extremities. EXTREMITIES: There is no peripheral edema. No clubbing, no cyanosis. Peripheral pulses are intact. - Labs CBC & Chem 7: 08/05/21 05:59 08/05/21 11:18 Labs: Abnormal Lab Results - Last 24 Hours (Table) 08/05/21 08/05/21 08/05/21 Range/Units 05:59 05:59 11:18 WBC 11.9 H (3.8-10.6) k/uL RBC 3.37 L (3.80-5.40) m/uL Hgb 9.9 L (11.4-16.0) gm/dL Hct 32.9 L (34.0-46.0) % MCHC 29.9 L (31.0-37.0) g/dL Neutrophils # 9.3 H (1.3-7.7) k/uL Chloride 111 H (98-107) mmol/L Carbon Dioxide 29.8 H (20.0-27.5) mmol/L Anion Gap 3.20 L (10.00-18.00) mmol/L BUN 5.9 L (9.0-27.0) mg/dL Creatinine 0.4 L 0.43 L (0.6-1.5) mg/dL Calcium 8.3 L 7.9 L (8.7-10.3) mg/dL AST 8 L (13-35) U/L ALT 6 L (8-44) U/L Alkaline Phosphatase 26 L (41-126) U/L Total Protein 4.8 L (6.2-8.2) g/dL Albumin 2.7 L (3.8-4.9) g/dL Albumin/Globulin Ratio 1.29 L (1.60-3.17) g/dL Microbiology - Last 24 Hours (Table) 08/03/21 15:45 Gram Stain - Preliminary Aspirate Body Fluid Culture - Preliminary Gram Neg Bacilli 08/02/21 19:15 Blood Culture - Preliminary Blood No Growth after 48 hours 08/02/21 19:00 Blood Culture - Preliminary Blood No Growth after 48 hours 08/03/21 15:45 Acid Fast Bacilli Smear - Final Aspirate Acid Fast Bacilli Culture - Preliminary Assessment and Plan Assessment: 1 Right lung abscess. The patient has a complex 10 x 11 x 12 cm fluid-filled cavity in the right upper lobe consistent with a lung abscess that followed an extensive gram-negative right lung pneumonia. The patient was Hospital as back in June 2021 and at that time the patient had Pseudomonas bacteremia secondary to pneumonia. The patient is currently on vancomycin, cefepime. She did receive a pigtail catheter placement 08/04/2021 in interventional radiology with approximately 300 ML's of purulent fluid returned. She also received alteplase and dornase per CT services times one. Initial pleural fluid cultures are positive for gram-negative bacilli. 2 History of an extensive right lung pneumonia with secondary pseudomonas aeruginosa septicemia hospitalized back in June 2021. The blood culture was positive on 07/03/2021 3 History of pulmonary embolism diagnosed during her most recent hospitalization and the patient was found to have clotting in the right lower lobe pulmonary artery branches and the patient was given Eliquis. 4 Severe COPD with an FEV1 of 49% of predicted at baseline 5 Acute spontaneous right-sided pneumothorax, status post smallbore chest tube placement and subsequent removal, follow-up chest x-ray shows no evidence of pneumothorax 6 Paroxysmal atrial fibrillation, currently in sinus mechanism 7 History of underlying coronary artery disease 8 History of endovascular aortic repair 9 Abdominal wall hernia 10 Hypertension 11 History of CVA Plan The patient was seen and evaluated today Chest x-ray and labs reviewed Pleural fluid with gram-negative bacilli Continued on vancomycin, cefepime Received alteplase/dornase yesterday Continue incentive spirometer Continue bronchodilators Increase her activity as tolerated Follow-up labs and chest x-ray in a.m. We will continue to follow I, the cosigning physician, performed a history & physical examination of the patient. Lungs sounds with scattered rhonchi, diminished over the right lung. Maintaining good O2 saturations in the 90s on room air. I discussed the assessment and plan of care with my nurse practitioner, Gaby Alcazar. I attest to the above note as dictated by her.
--- NOTE | 2021-08-05 15:55 | P.PN ---
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 Chronic stable medical conditions include coronary artery disease with stent, some mild right-sided weakness from prior stroke, hypertension, hyperlipidemia, obstructive sleep apnea uses CPAP machine, TB in 1985, hiatal hernia, surgery for thoracic aortic aneurysm, sleeve gastrectomy [place] [address] Hamilton. Home oxygen 4 L Patient was in the hospital from June 27 through 07/07/2021. Was admitted with right-sided pneumothorax, A. fib with rapid ventricular rate, acute pulmonary embolism. Was discharged to rehab. Was DO NOT RESUSCITATE. had presented today to Dr. 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 Patient's had a congested cough. No fever no chills. Appetite is fair. Does use a walker. Lives with her daughter. X-ray had shown at the office are larger pasty all combining the right lung. With the large mix of fluid in there. Concern for lung abscess. As patient is admitted. She is not expe ctorating any sputum though she has a congested cough. Pigtail catheter was placed in the chest/abscess. Started on IV cefepime, vancomycin. August 04: About 300 mL of vaz take fluid drained today. Decreased appetite. Tired. 4 L nasal cannula. August 05: Laying in bed. Right-sided pigtail catheter draining well. 4 L nasal cannula. Eating somewhat better. Tired. Cough. Review of systems: Was done for constitutional, cardiovascular, GI, pulmonary. relevant finding as above Active Medications Acetaminophen (Acetaminophen Tab 325 Mg Tab) 650 mg PO Q6HR PRN PRN Reason: Fever and/ or Pain Last Admin: 08/05/21 08:02 Dose: 650 mg Documented by: Albuterol Sulfate (Albuterol Nebulized 2.5 Mg/3 Ml) 2.5 mg INHALATION RT-Q4H PRN PRN Reason: Shortness Of Breath Or Wheezing Albuterol/Ipratropium (Ipratropium-Albuterol 3 Ml Neb) 3 ml INHALATION RT-QID BRE Last Admin: 08/05/21 12:06 Dose: Not Given Documented by: Enoxaparin Sodium (Enoxaparin 80 Mg/0.8 Ml Syringe) 70 mg SQ Q12H [facility] Last Admin: 08/05/21 06:20 Dose: 70 mg Documented by: Potassium Chloride/Sodium Chloride (Ns-Kcl 40 Meq/L Iv Solution) 1,000 mls @ 83 mls/hr IV .Q12H3M [facility] Last Admin: 08/05/21 10:22 Dose: 83 mls/hr Documented by: Cefepime HCl 2 gm/ Sodium (Chloride) 100 mls @ 25 mls/hr IVPB Q8H [facility] Last Admin: 08/05/21 10:22 Dose: 25 mls/hr Documented by: Vancomycin HCl 1,500 mg/ (Sodium Chloride) 250 mls @ 125 mls/hr IVPB Q12H [facility] Metoprolol Tartrate (Metoprolol Tartrate 50 Mg Tab) 50 mg PO TID@0800,1400,2000 [facility] Last Admin: 08/05/21 14:41 Dose: 50 mg Documented by: Miscellaneous Information (Pneumonia Protocol Utilized 1 Each Misc) 1 each PO ONCE PRN PRN Reason: Per Protocol Pantoprazole Sodium (Pantoprazole 40 Mg Tablet) 40 mg PO AC-BRKFST [facility] Last Admin: 08/05/21 08:00 Dose: 40 mg Documented by: Past medical history to include: Coronary artery disease with stent, COPD, stroke with some mild right-sided weakness, hyperlipidemia, hypertension, obstructive sleep apnea uses CPAP, TB 1985, hiatal hernia, sleeve gastrectomy in 2017, surgery for thoracic aortic aneurysm, 4 L of oxygen at home, atrial fibrillation, pulmonary embolism Jun Social history: Started smoking age of 15 stopped in 2011. One pack a day. Alcohol occasionally. Lives with her daughter. Uses walker. Family history: MT, pacemaker, COPD Physical examination: VITAL SIGNS: 97.8, 53, 18, 125-65, 98% on 4 L GENERAL: , Laying in bed, awake, tired. EYES: Pupils equal. Conjunctiva normal. HEENT: External appearance of nose and ears normal, oral cavity grossly normal. NECK: JVD not raised; masses not palpable. HEART: First and second heart sounds are normal; no edema. LUNGS: Respiratory rate increased; decreased breath sounds. Right-sided chest pigtail catheter ABDOMEN: Soft, nontender, liver spleen not palpable, no masses palpable. PSYCH: Alert and oriented x3; mood and affect tired. MUSCULOSKELETAL:No Clubbing/cyanosis;muscles-grossly intact NEUROLOGICAL: Cranial nerves grossly intact; no facial asymmetry, power and sensation grossly intact. INVESTIGATIONS, reviewed in the clinical context: August 05: White count 11.9 hemoglobin 9.9 platelets 267 potassium 3.8 creatinine 0.43 August 04: White count 7.1 hemoglobin 10.4 potassium 4.3 creatinine 0.44 White count 9.6 hemoglobin 14.3 platelets 243 sodium 135 potassium 2.9 creatinine 0.58 CRP 17.9 albumin 2.9 Coronavirus/influenza type A/influenza type B/urine Legionella antigen: Not detected EKG tracing personally reviewed by [email or web address]. Sinus rhythm. Nonspecific T- wave changes Chest x-ray film personally reviewed by [id number] lung mass with a air- fluid level Computed tomography scan chest with contrast: Large mix fluid and air rounded collection in the right upper lobe dense/11/12 cm. Congestion subsegment consolidation. Bronchopulmonary fistula not excluded. See report for more details Assessment and plan: -Large mix fluid and air collection in the right upper lobe measuring 10/11/12 cm. lung abscess. Slow to respond August 03: Pigtail catheter was placed by interventional radiology. Continue with bronchodilators. IV vancomycin/cefepime. Cultures gram-negative bacilli . -Right-sided pneumonia suspected gram-negative organism: Slow to respond IV cefepime, vancomycin -Paroxysmal atrial fibrillation Currently sinus rhythm Lopressor 12.5 mg 3 times a day -Chronic hypoxic respiratory failure from COPD On home oxygen 4 -Pulmonary embolism June 2021 Eliquis. Currently on Lovenox -COPD exacerbation in an ex-smoker- on bronchodilators, -Coronary artery disease with stent Lopressor, -Mild right hemiparesis from prior stroke -Hypokalemia: Replace Replace potassium -Essential hypertension, Lopressor 50 mg 3 times a day -Obstructive sleep apnea uses CPAP continue the same -Hiatal hernia -History of sleeve gastrectomy Oxygen 4 L. IV vancomycin, cefepime, encourage oral intake. Lovenox. Continue current medication treatment plan.
[2021-08-05 17:28] LABS: Glucose,Whole Blood 86 mg/dL (75-99)
[2021-08-05 20:55] LABS: Glucose,Whole Blood 89 mg/dL (75-99)
[2021-08-05] MEDS: VANCOMYCIN 1,500 MG in SODIUM CHLORIDE 0.9% 250 ML IVPB SCH (23:35)
[2021-08-06] MEDS: CEFEPIME 2 GM in SODIUM CHLORIDE 0.9% 100 ML IVPB SCH ×3 (03:25→19:49)
[2021-08-06] MEDS: ENOXAPARIN 80 MG/0.8 ML SYRINGE SQ SCH ×2 (06:28→17:48)
[2021-08-06 07:02] LABS: Basophils % (A) 0 %; Eosinophils # (A) 0.1 k/uL (0-0.7); Eosinophils % (A) 1 %; HCT 32.5 % (34.0-46.0); HGB 9.9 gm/dL (11.4-16.0); Hypochromasia Marked; Lymphocytes % (A) 14 %; MCH 29.8 pg (25.0-35.0); MCHC 30.5 g/dL (31.0-37.0); MCV 97.7 fL (80.0-100.0); Monocytes # (A) 0.4 k/uL (0-1.0); Monocytes % (A) 6 %; Neutrophils # (A) 5.5 k/uL (1.3-7.7); Neutrophils % (A) 76 %; Platelet Count 289 k/uL (150-450); RBC 3.33 m/uL (3.80-5.40); RDW 13.9 % (11.5-15.5); WBC 7.3 k/uL (3.8-10.6)
[2021-08-06 07:13] LABS: Glucose,Whole Blood 72 mg/dL (75-99)
--- NOTE | 2021-08-06 07:46 | XR ---
EXAMINATION TYPE: XR chest 1V portable DATE OF EXAM: 08/06/2021 COMPARISON: 08/05/2021 HISTORY: Right lung abscess TECHNIQUE: Single frontal view of the chest is obtained. FINDINGS: There is no change in the configuration of the pigtail drainage catheter in the right lung presumably for lung abscess drainage. There is persistent coarse curvilinear density around the periphery of th e catheter likely representing the thickened abscess wall but there is no reaccumulation of fluid wi thin the cavity as was seen on prior studies. There is been no interval change since the study done o ne day prior. There is diffuse interstitial opacity throughout the right lung, is stable as well. The left lung remains clear. There is no pneumothorax. There are probable small bilateral pleural effusions which are stable. There is a stent in the thoracic aorta. The osseous structures are intact Impression: No interval change in the appearance of the right lung infiltrates, pigtail drainage catheter or absc ess cavity.
[2021-08-06] MEDS: IPRATROPIUM-ALBUTEROL 3 ML NEB INHALATION SCH ×4 (08:28→19:51)
--- NOTE | 2021-08-06 08:28 | CT ---
EXAMINATION TYPE: CT chest wo con DATE OF EXAM: 08/06/2021 COMPARISON: 08/02/2021 HISTORY: Right lung abscess CT DLP: 396.4 mGycm. Automated Exposure Control for Dose Reduction was Utilized. TECHNIQUE: CT scan of the thorax is performed without IV contrast. FINDINGS: There has been interval insertion of a pigtail drainage catheter in abscess cavity in the right lower lobe. Compared to previous, there is a significant reduction in the degree of fluid/pus within the c avity although an air-fluid level still persists. There is mild interstitial prominence adjacent to the cavity wall. There is no pneumothorax There has been interval development of a small left pleural effusion and a small groundglass density in the left lower lobe. There is a thoracic aortic aneurysm with a stent graft unchanged compared to previous. There is no mediastinal, hilar or axillary adenopathy. IMPRESSION: 1. Right lower lobe lung abscess cavity with pigtail drainage catheter. There is been a decrease in t he degree of fluid/pus within the cavity compared to the prior study dated 08/02/2021. 2. Interval development of a small groundglass density in the right lower lobe with small left pleura l effusion. 3. No change in the thoracic aortic aneurysm with stent graft.
[2021-08-06] MEDS: PANTOPRAZOLE 40 MG TABLET PO SCH (08:40)
[2021-08-06] MEDS: METOPROLOL TARTRATE 50 MG TAB PO SCH ×3 (08:40→19:49)
[2021-08-06 08:52] LABS: ALT 6 U/L (8-44); AST 8 U/L (13-35); African American GFR (CKD) 133.5 (60.0-200.0); Albumin 2.6 g/dL (3.8-4.9); Albumin/Globulin Ratio 1.24 (1.60-3.17); Alkaline Phosphatase 25 U/L (41-126); Blood Urea Nitrogen 6.3 mg/dL (9.0-27.0); Calcium 8.3 mg/dL (8.7-10.3); Carbon Dioxide 22.5 mmol/L (20.0-27.5); Chloride 108 mmol/L (96-109); Globulin 2.1 g/dL (1.6-3.3); Glucose 71 mg/dL (70-110); Non-African American GFR(CKD) 115.2 (60.0-200.0); Potassium 3.9 mmol/L (3.5-5.5); Sodium 141 mmol/L (135-145); Total Bilirubin <0.20 mg/dL (0.30-1.20); Total Protein 4.7 g/dL (6.2-8.2)
[2021-08-06] MEDS ORDERED: ALTEPLASE 10 MG in SODIUM CHLORIDE 0.9% 50 ML IRRIGATION ONE (09:00)
[2021-08-06] MEDS ORDERED: DORNASE ALFA 5 MG in SODIUM CHLORIDE 0.9% 50 ML IRRIGATION ONE (09:00)
[2021-08-06] MEDS: 0.9% NACL WITH KCL 40 MEQ/L 1,000 ML IV SCH (11:10)
[2021-08-06] MEDS: VANCOMYCIN 1,500 MG in SODIUM CHLORIDE 0.9% 250 ML IVPB SCH (11:10)
[2021-08-06 11:45] LABS: Glucose,Whole Blood 77 mg/dL (75-99)
--- NOTE | 2021-08-06 11:49 | P.PN ---
Subjective Progress Note Date: 08/06/21 Principal diagnosis: Right pulmonary mass, likely abscess. Recent hospitalization for pneumonia, pulmonary embolism, pneumothorax. Past medical history significant for severe COPD with home oxygen dependence, coronary artery disease with myocardial infarction and PCI, thoracic aortic aneurysm with endovascular repair, previous CVA with residual right-sided weakness, obstructive sleep apnea without home CPAP use, tuberculosis in 1985, obesity with previous sleeve gastrectomy, previous tobacco dependence POD #[address] guided right-sided pigtail catheter insertion by interventional radiology. The patient was seen in follow-up today 08/06/2021 at her bedside on the medical oncology unit. Currently she is lying in bed, is awake, alert and oriented 3 and is in no acute apparent distress. Denies any complaints of pain or shortness of breath at this time. Her right sided chest pigtail catheter remains in place and connected to bedside atrium with no air leak present. Continues on low continuous wall suction. 175 mL of output in the last 130 mL output in the last 24 hours of vaz-colored tenacious drainage. She is achieving 4601-1448 mL on her incentive spirometry. Oxygen saturation are 95% on 4 L nasal cannula. IV antibiotics per pulmonary/critical care medicine recommendations. She has been afebrile for the last 24 hours. She was given a dose of alteplase/dornase per her pigtail catheter yesterday and on 08/04/2021. A computed tomography scan of her chest without contrast was completed this morning which demonstrated a right lower lobe lung abscess cavity with pigtail drainage catheter, a decrease in the degree of fluid/pus within the cavity compared to her prior exam on 08/02/2021, and it also demonstrated an interval development of a small groundglass density in the right lower lobe with a small left pleural effusion. Objective - Vital Signs Vital signs: Vital Signs Temp 98 F 08/06/21 06:00 Pulse 68 08/06/21 08:42 Resp 20 08/06/21 06:00 BP 140/75 08/06/21 06:00 Pulse Ox 98 08/06/21 08:29 Intake & Output 08/05/21 08/06/21 08/06/21 18:59 06:59 18:59 Intake Total 996 Output Total 130 80 Balance 866 -80 Intake: Intake, IV Titration 996 Amount 0.9% NaCl with KCl 40 Meq 996 /l 1,000 ml @ 83 mls/hr IV .Q12H3M [facility] Rx#: [id number] Output: Chest Tube Drainage 130 80 right posterior chest 130 80 Other: Voiding Method Toilet Toilet Toilet # Voids 1 1 1 # Bowel Movements 1 1 - Exam CONSTITUTIONAL: Appears comfortable, cooperative, no acute distress RESPIRATORY: Lungs sounds diminished bilaterally. Respirations symmetrical and nonlabored. Currently on 4 L nasal cannula with oxygen saturation 95%. Able to achieve 1000 mL on incentive spirometry. Strong cough. CARDIOVASCULAR: S1, S2 present. Regular rate and rhythm. Palpable peripheral pulses bilaterally. Trace bilateral lower extremity edema present. No calf pain or tenderness noted. GASTROINTESTINAL: Abdomen soft, nontender, nondistended. Active bowel sounds present 4 quadrants. Tolerating diet. GENITOURINARY: Continues to void clear, yellow urine INTEGUMENTARY: Skin is warm and dry, dressing clean, dry and intact to her right chest to pigtail Catheter. NEUROLOGIC: Cranial nerves II through XII intact MUSKULOSKELETAL: Able to move all extremities, strength equal bilaterally. PSYCHIATRIC: Alert and oriented to person place and time, appropriate affect, intact judgment and insight INVASIVE LINES AND TUBES: Right-sided pigtail catheter present and connected to atrium to low continuous wall suction, intermittent air leak is present, 130 mL vaz thick output in the last 24 hours. - Allied health notes Allied health notes reviewed: nursing - Labs CBC & Chem 7: 08/06/21 06:20 08/06/21 06:20 Labs: Abnormal Lab Results - Last 24 Hours (Table) 08/05/21 08/06/21 08/06/21 Range/Units 11:18 06:20 06:20 RBC 3.33 L (3.80-5.40) m/uL Hgb 9.9 L (11.4-16.0) gm/dL Hct 32.5 L (34.0-46.0) % MCHC 30.5 L (31.0-37.0) g/dL Chloride 111 H (98-107) mmol/L BUN 6.3 L (9.0-27.0) mg/dL Creatinine 0.43 L 0.3 L (0.52-1.04) mg/dL BUN/Creatinine Ratio 21.00 H (12.00-20.00) Ratio POC Glucose (mg/dL) (75-99) mg/dL Calcium 7.9 L 8.3 L (8.4-10.2) mg/dL Total Bilirubin <0.20 L (0.30-1.20) mg/dL AST 8 L (13-35) U/L ALT 6 L (8-44) U/L Alkaline Phosphatase 25 L (41-126) U/L Total Protein 4.7 L (6.2-8.2) g/dL Albumin 2.6 L (3.8-4.9) g/dL Albumin/Globulin Ratio 1.24 L (1.60-3.17) g/dL 08/06/21 Range/Units 07:11 RBC (3.80-5.40) m/uL Hgb (11.4-16.0) gm/dL Hct (34.0-46.0) % MCHC (31.0-37.0) g/dL Chloride (98-107) mmol/L BUN (9.0-27.0) mg/dL Creatinine (0.52-1.04) mg/dL BUN/Creatinine Ratio (12.00-20.00) Ratio POC Glucose (mg/dL) 72 L (75-99) mg/dL Calcium (8.4-10.2) mg/dL Total Bilirubin (0.30-1.20) mg/dL AST (13-35) U/L ALT (8-44) U/L Alkaline Phosphatase (41-126) U/L Total Protein (6.2-8.2) g/dL Albumin (3.8-4.9) g/dL Albumin/Globulin Ratio (1.60-3.17) g/dL Microbiology - Last 24 Hours (Table) 08/03/21 15:45 Anaerobic Culture - Preliminary Aspirate 08/02/21 19:15 Blood Culture - Preliminary Blood No Growth after 72 hours 08/02/21 19:00 Blood Culture - Preliminary Blood No Growth after 72 hours 08/03/21 15:45 Gram Stain - Final Aspirate Body Fluid Culture - Final Enterobacter cloacae Enterobacter cloacae#2 - Imaging and Cardiology Chest x-ray: report reviewed, image reviewed CT scan - chest: report reviewed, image reviewed Assessment and Plan Assessment: 1. Right pulmonary mass, likely abscess, status post placement of right-sided pigtail catheter by interventional radiology 2. Recent hospitalization for pneumonia, pulmonary embolism, pneumothorax 3. History of severe COPD with home oxygen dependence 4. History of coronary artery disease with myocardial infarction and PCI 5. History of thoracic aortic aneurysm with endovascular repair 6. Previous CVA with residual right-sided weakness 7. Obstructive sleep apnea without home CPAP use 8. Tuberculosis in 1985 9. Obesity with previous sleeve gastrectomy 10. Previous tobacco dependence Plan: 1. Will instill alteplase and dornase through pigtail catheter today which will be her third dose. Computed tomography scan of the chest reviewed by Dr. Cadena from cardiothoracic surgery and by Dr. Holland from pulmonary/critical care medicine. 2. Wean O2 as tolerated. Bronchodilators, antibiotics per pulmonology/critical care medicine management. The patient uses 4 L of nasal cannula oxygen at home. 3. Will continue to monitor daily chest x-rays. 4. Increase activity as tolerated. 5. Medical management of other comorbidities per primary care service. 6. More recommendations to follow based on patient's clinical course. Time with Patient: Greater than 30
--- NOTE | 2021-08-06 15:18 | P.PN ---
Subjective Progress Note Date: 08/06/21 Principal diagnosis: Shortness of breath This is a 71-year-old female patient who was recently hospitalized for an extensive right lung pneumonia. The patient was seen in our office yesterday the patient was found to have a large opacity involving the right lung. Based on that, the patient was referred for a computed tomography scan of the chest and the patient was found to have a 10 x 11 x 12 cm large mix fluid and air rounded collection in the right upper lobe very much consistent with a lung abscess. There was also adjacent consolidation. At the same time, the patient has postsurgical changes involving the thoracic aorta with endovascular stent. Based on this, the patient was admitted to the hospital. Patient is currently on 4 L about 2 by nasal cannula. She has a congested cough. No significant fever. No significant sputum production. The blood work is showing a white cell count 9.6 with hemoglobin 14.3 and a platelet count of 243. Creatinine is at 14 with a creatinine of 0.5 and a sodium level of 135. We think that this was a gram-negative pneumonia knowing that the patient's previous SD that occurred back in June 2021 showed a possible culture with pseudomonas aeruginosa. At the time of discharge she was given antibiotics the patient was given a prednisone burst taper. She was not given antibiotics based on my review of the records. At the same time, the patient was given anticoagulation for a pulmonary embolism in the right middle/right lower lobe pulmonary artery secondary branches. She also has history approximately atrial fibrillation and current cardiac rhythm is sinus. She has chronic hypoxic respiratory failure maintained on oxygen at 4 L per minute nasal cannula. She has advanced COPD and she has an FEV1 of 49% of predicted. She is currently admitted to the hospital for further The patient is seen today in 08/04/2021 in follow-up on the regular medical floor. She is currently resting comfortably in bed. Awake and alert in no acute distress. Maintaining O2 saturations in the mid 90s on 4 L/m per nasal ca nnula. Afebrile. Hemodynamically stable. This morning she had undergone a CT- guided right-sided chest tube insertion for suspected pulmonary as abscess. She had a pigtail catheter placed by interventional radiology. 300 mL of purulent thick drainage was returned. Follow-up chest x-ray reveals slightly diminished size of the right lung abscess. Catheters within the region. She had been seen by CT services and alteplase injection will be performed as well. Cultures pending. White count 7.1. Hemoglobin 10.4. Sodium 141. Potassium 4.3. Creatinine 0.44. She's been initiated on vancomycin, cefepime and azithromycin. Continued on bronchodilators. We'll add incentive spirometer. The patient is seen today 08/05/2021 follow-up on the regular medical floor. She is awake and alert in no acute distress. Breathing easier today compared to yesterday. Maintaining O2 saturations in the low 90s on room air. She's been afebrile. Hemodynamically stable. Chest x-ray continues to show significant interval reduction in the right lung abscess which contains the pigtail drainage catheter. Preliminary pleural fluid cultures are positive for gram-negative bacilli. Blood cultures reveal no growth. White count 11.9. Hemoglobin 9.9. Platelets 267. Sodium 137. Potassium 3.8. Creatinine 0.43. Glucose 85. Vancomycin trough 13.7. She remains on vancomycin and cefepime. On 08/06/2021 patient seen in follow-up on medical surgical floor. He is awake and alert, in no acute distress, sitting up in bed, breathing comfortably currently on 3 L of oxygen with pulse ox of 99%, denies any chest pain, denies any worsening dyspnea or cough, she has a right-sided posterior pigtail chest tube in place which is draining serosanguineous output, and output from it was in the order of 130 mL over last 24 hours. Patient has been receiving intermittent doses of TPA per cardiothoracic surgery. Today's chest x-ray showing no interval change in the appearance of right lung infiltrate pigtail drainage catheter or abscess cavity. CT chest without contrast was completed showing right lower lobe lung abscess cavity with the decrease in the degree of fluid/pus within the cavity compared to the prior study from 08/02/2021. And there was interval development of a small groundglass density in the right lower lobe with small left plural effusion. Clinically patient appears stable, she is breathing comfortably. She remains on cefepime and vancomycin for antibiotic coverage. Her pleural fluid aspirate from her right-sided pigtail chest tube catheter showed Enterobacter cloacae, and there were 2 organisms, and both were sensitive to cefepime Objective - Vital Signs Vital signs: Vital Signs Temp 98.4 F 08/06/21 11:37 Pulse 59 L 08/06/21 12:05 Resp 20 08/06/21 11:37 BP 152/84 08/06/21 11:37 Pulse Ox 99 08/06/21 11:37 Intake & Output 08/05/21 08/06/21 08/06/21 18:59 06:59 18:59 Intake Total 996 Output Total 130 80 Balance 866 -80 Intake: Intake, IV Titration 996 Amount 0.9% NaCl with KCl 40 Meq 996 /l 1,000 ml @ 83 mls/hr IV .Q12H3M [facility] Rx#: [id number] Output: Chest Tube Drainage 130 80 right posterior chest 130 80 Other: Voiding Method Toilet Toilet Toilet # Voids 1 1 1 # Bowel Movements 1 1 - Exam GENERAL EXAM: Alert, very pleasant, 71-year-old white female, clear on 3 L of oxygen, with a pulse ox of 99% comfortable in no apparent distress. HEAD: Normocephalic/atraumatic. EYES: Normal reaction of pupils, equal size. Conjunctiva pink, sclera white. NOSE: Clear with pink turbinates. THROAT: No erythema or exudates. NECK: No masses, no JVD, no thyroid enlargement, no adenopathy. CHEST: No chest wall deformity. Symmetrical expansion. Right posterior chest pigtail catheter in place, connected to a Pleur-evac, with significant amount of purulent and serosanguineous output, no evidence of air leak LUNGS: Equal air entry with no crackles, wheeze, rhonchi or dullness. CVS: Regular rate and rhythm, normal S1 and S2, no gallops, no murmurs, no rubs ABDOMEN: Soft, nontender. No hepatosplenomegaly, normal bowel sounds, no guarding or rigidity. EXTREMITIES: No clubbing, no edema, no cyanosis, 2+ pulses and upper and lower extremities. MUSCULOSKELETAL: Muscle strength and tone normal. SPINE: No scoliosis or deformity SKIN: No rashes CENTRAL NERVOUS SYSTEM: Alert and oriented -3. No focal deficits, tone is normal in all 4 extremities. PSYCHIATRIC: Alert and oriented -3. Appropriate affect. Intact judgment and insight. - Labs CBC & Chem 7: 08/06/21 06:20 08/06/21 06:20 Labs: Abnormal Lab Results - Last 24 Hours (Table) 08/06/21 08/06/21 08/06/21 Range/Units 06:20 06:20 07:11 RBC 3.33 L (3.80-5.40) m/uL Hgb 9.9 L (11.4-16.0) gm/dL Hct 32.5 L (34.0-46.0) % MCHC 30.5 L (31.0-37.0) g/dL BUN 6.3 L (9.0-27.0) mg/dL Creatinine 0.3 L (0.6-1.5) mg/dL BUN/Creatinine Ratio 21.00 H (12.00-20.00) Ratio POC Glucose (mg/dL) 72 L (75-99) mg/dL Calcium 8.3 L (8.7-10.3) mg/dL Total Bilirubin <0.20 L (0.30-1.20) mg/dL AST 8 L (13-35) U/L ALT 6 L (8-44) U/L Alkaline Phosphatase 25 L (41-126) U/L Total Protein 4.7 L (6.2-8.2) g/dL Albumin 2.6 L (3.8-4.9) g/dL Albumin/Globulin Ratio 1.24 L (1.60-3.17) g/dL Microbiology - Last 24 Hours (Table) 08/03/21 15:45 Anaerobic Culture - Preliminary Aspirate 08/02/21 19:15 Blood Culture - Preliminary Blood No Growth after 72 hours 08/02/21 19:00 Blood Culture - Preliminary Blood No Growth after 72 hours 08/03/21 15:45 Gram Stain - Final Aspirate Body Fluid Culture - Final Enterobacter cloacae Enterobacter cloacae#2 Assessment and Plan Plan: 1 Right lung abscess. The patient has a complex 10 x 11 x 12 cm fluid-filled cavity in the right upper lobe consistent with a lung abscess that followed an extensive gram-negative right lung pneumonia. The patient was Hospital as back in June 2021 and at that time the patient had Pseudomonas bacteremia secondary to pneumonia. The patient is currently on vancomycin, cefepime. She did receive a pigtail catheter placement 08/04/2021 in interventional radiology with approximately 300 ML's of purulent fluid returned. She also received alteplase and dornase per CT services times one. Pleural fluid cultures were positive for Enterobacter cloacae, 2 different organisms, patient currently remains on the combination of cefepime and vancomycin. 2 History of an extensive right lung pneumonia with secondary pseudomonas aeruginosa septicemia hospitalized back in June 2021. The blood culture was positive on 07/03/2021 3 History of pulmonary embolism diagnosed during her most recent hospitalization and the patient was found to have clotting in the right lower lobe pulmonary artery branches and the patient was given Eliquis. 4 Severe COPD with an FEV1 of 49% of predicted at baseline 5 Acute spontaneous right-sided pneumothorax, status post smallbore chest tube placement and subsequent removal, follow-up chest x-ray shows no evidence of pneumothorax 6 Paroxysmal atrial fibrillation, currently in sinus mechanism 7 History of underlying coronary artery disease 8 History of endovascular aortic repair 9 Abdominal wall hernia 10 Hypertension 11 History of CVA Plan: Continue current antibiotic treatment Patient is on accommodation of cefepime and vancomycin Chest x-ray and computed tomography scan of the chest have been reviewed Patient will receive another dose of alteplase and dornase per CT surgery s ervices Continue monitoring drainage out of the ICU chest tube Clinically remains stable, no worsening dyspnea We'll continue to follow her clinical course I performed a history & physical examination of the patient and discussed their management with my nurse practitioner, Jacque Arvizu. I reviewed the nurse practitioner's note and agree with the documented findings and plan of care. Lung sounds are positive for dim breath sounds throughout the lung aden. The findings and the impression was discussed with the patient. I attest to the documentation by the nurse practitioner. Time with Patient: Less than 30
--- NOTE | 2021-08-06 17:07 | P.PN ---
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 Chronic stable medical conditions include coronary artery disease with stent, some mild right-sided weakness from prior stroke, hypertension, hyperlipidemia, obstructive sleep apnea uses CPAP machine, TB in 1985, hiatal hernia, surgery for thoracic aortic aneurysm, sleeve gastrectomy [place] [address] Hamilton. Home oxygen 4 L Patient was in the hospital from June 27 through 07/07/2021. Was admitted with right-sided pneumothorax, A. fib with rapid ventricular rate, acute pulmonary embolism. Was discharged to rehab. Was DO NOT RESUSCITATE. had presented today to Dr. Moreau hours office for school childcare attendant visit. Patient's had a congested cough. No fever no chills. Appetite is fair. Does use a walker. Lives with her daughter. X-ray had shown at the office are larger pasty all combining the right lung. With the large mix of fluid in there. Concern for lung abscess. As patient is admitted. She is not expe ctorating any sputum though she has a congested cough. Pigtail catheter was placed in the chest/abscess. Started on IV cefepime, vancomycin. August 04: About 300 mL of vaz take fluid drained today. Decreased appetite. Tired. 4 L nasal cannula. August 05: Laying in bed. Right-sided pigtail catheter draining well. 4 L nasal cannula. Eating somewhat better. Tired. Cough. August 06: Patient is feeling better. Drained 130 mL from the pigtail catheter 24 hours. Breathing better. Oral intake improving. Sitting up and eating lunch. Decreased cough. Cultures positive for Enterobacter cloacae. 3rd dose of alteplase/dornase through pigtail catheter today. Review of systems: Was done for constitutional, cardiovascular, GI, pulmonary. relevant finding as above Active Medications Acetaminophen (Acetaminophen Tab 325 Mg Tab) 650 mg PO Q6HR PRN PRN Reason: Fever and/ or Pain Last Admin: 08/05/21 21:10 Dose: 650 mg Documented by: Albuterol Sulfate (Albuterol Nebulized 2.5 Mg/3 Ml) 2.5 mg INHALATION RT-Q4H PRN PRN Reason: Shortness Of Breath Or Wheezing Albuterol/Ipratropium (Ipratropium-Albuterol 3 Ml Neb) 3 ml INHALATION RT-QID [facility] Last Admin: 08/06/21 15:53 Dose: 3 ml Documented by: Enoxaparin Sodium (Enoxaparin 80 Mg/0.8 Ml Syringe) 70 mg SQ Q12H [facility] Last Admin: 08/06/21 06:28 Dose: 70 mg Documented by: Potassium Chloride/Sodium Chloride (Ns-Kcl 40 Meq/L Iv Solution) 1,000 mls @ 83 mls/hr IV .Q12H3M [facility] Last Admin: 08/06/21 11:10 Dose: 83 mls/hr Documented by: Cefepime HCl 2 gm/ Sodium (Chloride) 100 mls @ 25 mls/hr IVPB Q8H [facility] Last Admin: 08/06/21 11:10 Dose: 25 mls/hr Documented by: Vancomycin HCl 1,500 mg/ (Sodium Chloride) 250 mls @ 125 mls/hr IVPB Q12H [facility] Last Admin: 08/06/21 11:10 Dose: 125 mls/hr Documented by: Metoprolol Tartrate (Metoprolol Tartrate 50 Mg Tab) 50 mg PO TID@0800,1400,2000 [facility] Last Admin: 08/06/21 13:38 Dose: 50 mg Documented by: Miscellaneous Information (Pneumonia Protocol Utilized 1 Each Misc) 1 each PO ONCE PRN PRN Reason: Per Protocol Pantoprazole Sodium (Pantoprazole 40 Mg Tablet) 40 mg PO [id number]-[id number] [facility] Last Admin: 08/06/21 08:40 Dose: 40 mg Documented by: Past medical history to include: Coronary artery disease with stent, COPD, stroke with some mild right-sided weakness, hyperlipidemia, hypertension, obstructive sleep apnea uses CPAP, TB 1985, hiatal hernia, sleeve gastrectomy in 2017, surgery for thoracic aortic aneurysm, 4 L of oxygen at home, atrial fibrillation, pulmonary embolism June 2021 Social history: Started smoking age of 15 stopped in 2011. One pack a day. Alcohol occasionally. Lives with her daughter. Uses walker. Family history: [place], pacemaker, COPD Physical examination: VITAL SIGNS: 98.4, 55, 20, 152/84, 99% on 3 L GENERAL: , Sitting up in bed, eating lunch, more awake EYES: Pupils equal. Conjunctiva normal. HEENT: External appearance of nose and ears normal, oral cavity grossly normal. NECK: JVD not raised; masses not palpable. HEART: First and second heart sounds are normal; no edema. LUNGS: Respiratory rate increased; decreased breath sounds. Right-sided chest pigtail catheter ABDOMEN: Soft, nontender, liver spleen not palpable, no masses palpable. PSYCH: Alert and oriented x3; mood and affect tired. MUSCULOSKELETAL:No Clubbing/cyanosis;muscles-grossly intact NEUROLOGICAL: Cranial nerves grossly intact; no facial asymmetry, power and sensation grossly intact. INVESTIGATIONS, reviewed in the clinical context: August 06: White count 7.3 hemoglobin 9.9 platelets 29 potassium 3.9 creatinine 0.3 August 05: White count 11.9 hemoglobin 9.9 platelets 267 potassium 3.8 creatinine 0.43 August 04: White count 7.1 hemoglobin 10.4 potassium 4.3 creatinine 0.44 White count 9.6 hemoglobin 14.3 platelets 243 sodium 135 potassium 2.9 creatinine 0.58 CRP 17.9 albumin 2.9 Coronavirus/influenza type A/influenza type B/urine Legionella antigen: Not detected EKG tracing personally reviewed by me-[email or web address]. Sinus rhythm. Nonspecific T- wave changes Chest x-ray film personally reviewed by [id number] lung mass with a air- fluid level Computed tomography scan chest with contrast: Large mix fluid and air rounded collection in the right upper lobe dense/11/12 cm. Congestion subsegment consolidation. Bronchopulmonary fistula not excluded. See report for more details Assessment and plan: -Large lung abscess right upper lobe measuring 10/11/12 cm. lung abscess. Slow to respond August 03: Pigtail catheter was placed by interventional radiology. Continue with bronchodilators. IV vancomycin/cefepime. alteplase/dornase through pigtail catheter daily. Cultures: Enterobacter cloacae . -Right-sided pneumonia suspected gram-negative organism: Slow to respond IV cefepime, vancomycin -Paroxysmal atrial fibrillation Currently sinus rhythm Lopressor 12.5 mg 3 times a day -Chronic hypoxic respiratory failure from COPD On home oxygen 4 -Pulmonary embolism June 2021 Eliquis. Currently on Lovenox -COPD exacerbation in an ex-smoker- on bronchodilators, -Coronary artery disease with stent Lopressor, -Mild right hemiparesis from prior stroke -Hypokalemia: Replace Replace potassium -Essential hypertension, Lopressor 50 mg 3 times a day -Obstructive sleep apnea uses CPAP continue the same -Hiatal hernia -History of sleeve gastrectomy Oxygen 3 L. IV cefepime, incentive spirometry. DC vancomycin. Discussed with patient.alteplase/dornase through pigtail catheter daily [third dose]
[2021-08-06 17:17] LABS: Glucose,Whole Blood 85 mg/dL (75-99)
[2021-08-06] MEDS: ACETAMINOPHEN TAB 325 MG TAB PO PRN (19:47)
[2021-08-07] MEDS: CEFEPIME 2 GM in SODIUM CHLORIDE 0.9% 100 ML IVPB SCH ×3 (02:35→18:09)
[2021-08-07] MEDS: ACETAMINOPHEN TAB 325 MG TAB PO PRN ×3 (02:36→20:08)
[2021-08-07] MEDS: 0.9% NACL WITH KCL 40 MEQ/L 1,000 ML IV SCH ×2 (03:05→11:47)
[2021-08-07] MEDS: ENOXAPARIN 80 MG/0.8 ML SYRINGE SQ SCH ×2 (06:37→18:09)
[2021-08-07 07:19] LABS: African American GFR (CKD) >90 (>60 ml/min/1.73 sqM); Anion Gap 3 mmol/L; Blood Urea Nitrogen 7 mg/dL (7-17); Calcium 8.2 mg/dL (8.4-10.2); Carbon Dioxide 24 mmol/L (22-30); Chloride 112 mmol/L (98-107); Glucose 77 mg/dL (74-99); Non-African American GFR(CKD) >90 (>60 ml/min/1.73 sqM); Potassium 4.2 mmol/L (3.5-5.1); Sodium 139 mmol/L (137-145)
[2021-08-07 07:37] LABS: Glucose,Whole Blood 77 mg/dL (75-99)
[2021-08-07] MEDS: METOPROLOL TARTRATE 50 MG TAB PO SCH ×3 (07:54→20:08)
[2021-08-07] MEDS: PANTOPRAZOLE 40 MG TABLET PO SCH (07:54)
[2021-08-07] MEDS: IPRATROPIUM-ALBUTEROL 3 ML NEB INHALATION SCH ×5 (08:25→19:40)
--- NOTE | 2021-08-07 09:35 | XR ---
EXAMINATION TYPE: XR chest 1V portable DATE OF EXAM: 08/07/2021 COMPARISON: 08/06/2021 INDICATION: Lung abscess TECHNIQUE: Single frontal view of the chest is obtained. FINDINGS: The heart size is normal. The pulmonary vasculature is normal. Stent in the descending thoracic aorta. There is perihilar increased lung markings. Catheter remains present. Previous large cavitary lesion not identified. Improving right basilar opacity is present. Small left pleural effusion. IMPRESSION: 1. Right perihilar infiltrate and small left effusion. 2. Stable right catheter
[2021-08-07 12:02] LABS: Glucose,Whole Blood 73 mg/dL (75-99)
[2021-08-07] MEDS ORDERED: DORNASE ALFA 5 MG in SODIUM CHLORIDE 0.9% 50 ML IRRIGATION ONE (12:02)
[2021-08-07] MEDS ORDERED: ALTEPLASE 10 MG in SODIUM CHLORIDE 0.9% 50 ML IRRIGATION ONE (12:02)
--- NOTE | 2021-08-07 12:26 | P.PN ---
Subjective Progress Note Date: 08/07/21 Principal diagnosis: Right pulmonary mass, likely abscess. Recent hospitalization for pneumonia, pulmonary embolism, pneumothorax. Past medical history significant for severe COPD with home oxygen dependence, coronary artery disease with myocardial infarction and PCI, thoracic aortic aneurysm with endovascular repair, previous CVA with residual right-sided weakness, obstructive sleep apnea without home CPAP use, tuberculosis in 1985, obesity with previous sleeve gastrectomy, previous tobacco dependence POD #[address] guided right-sided pigtail catheter insertion by interventional radiology. The patient was seen in follow-up today 08/07/2021 at her bedside on the medical oncology unit. Currently she is lying in bed, is awake, alert and oriented 3 and is in no acute apparent distress. Currently denies any complaints of pain or shortness of breath. Right chest pigtail catheter remains in place to low continuous wall suction -20 cm H2O. She received a dose of alteplase/dornase yesterday with 100 mL of output from the right chest pigtail catheter in the l ast 24 hours. Oxygen saturations 99% on 4 L nasal cannula and she is achieving 1250 mils liters on her incentive spirometry. She's been afebrile the last 24 hours. Objective - Vital Signs Vital signs: Vital Signs Temp 98.3 F 08/07/21 11:45 Pulse 60 08/07/21 12:04 Resp 16 08/07/21 11:45 BP 162/77 08/07/21 11:45 Pulse Ox 100 08/07/21 11:45 Intake & Output 08/06/21 08/07/21 08/07/21 18:59 06:59 18:59 Intake Total 996 932 Output Total 170 0 Balance 826 932 Intake: Intake, IV Titration 996 532 Amount 0.9% NaCl with KCl 40 Meq 996 332 /l 1,000 ml @ 83 mls/hr IV .Q12H3M [facility] Rx#: [id number] Cefepime 2 gm In Sodium 200 Chloride 0.9% 100 ml @ 25 mls/hr IVPB Q8H [facility] Rx#: [id number] Oral 400 Output: Chest Tube Drainage 170 0 right posterior chest 170 0 Drainage 0 Right Posterior Chest 0 Other: Voiding Method Toilet Toilet Toilet # Voids 2 3 1 # Bowel Movements 1 - Exam CONSTITUTIONAL: Appears comfortable, cooperative, no acute distress RESPIRATORY: Lungs sounds diminished bilaterally. Respirations symmetrical and nonlabored. Currently on 4 L nasal cannula with oxygen saturation 99%. Able to achieve 1250 mL on incentive spirometry. Strong cough. CARDIOVASCULAR: S1, S2 present. Regular rate and rhythm. Palpable peripheral pulses bilaterally. Trace bilateral lower extremity edema present. No calf pain or tenderness noted. GASTROINTESTINAL: Abdomen soft, nontender, nondistended. Active bowel sounds present 4 quadrants. Tolerating diet. GENITOURINARY: Continues to void clear, yellow urine INTEGUMENTARY: Skin is warm and dry, dressing clean, dry and intact to her right chest to pigtail Catheter. NEUROLOGIC: Cranial nerves II through XII intact MUSKULOSKELETAL: Able to move all extremities, strength equal bilaterally. PSYCHIATRIC: Alert and oriented to person place and time, appropriate affect, intact judgment and insight INVASIVE LINES AND TUBES: Right-sided pigtail catheter present and connected to atrium to low continuous wall suction, no air leak is present, 100 mL vaz thick output in the last 24 hours. - Allied health notes Allied health notes reviewed: nursing - Labs CBC & Chem 7: 08/06/21 06:20 08/07/21 05:59 Labs: Abnormal Lab Results - Last 24 Hours (Table) 08/07/21 08/07/21 Range/Units 05:59 11:53 Chloride 112 H (98-107) mmol/L Creatinine 0.47 L (0.52-1.04) mg/dL POC Glucose (mg/dL) 73 L (75-99) mg/dL Calcium 8.2 L (8.4-10.2) mg/dL Microbiology - Last 24 Hours (Table) 08/02/21 19:15 Blood Culture - Preliminary Blood No Growth after 96 hours 08/02/21 19:00 Blood Culture - Preliminary Blood No Growth after 96 hours - Imaging and Cardiology Chest x-ray: report reviewed, image reviewed Assessment and Plan Assessment: 1. Right pulmonary mass, likely abscess, status post placement of right-sided pigtail catheter by interventional radiology 2. Recent hospitalization for pneumonia, pulmonary embolism, pneumothorax 3. History of severe COPD with home oxygen dependence 4. History of coronary artery disease with myocardial infarction and PCI 5. History of thoracic aortic aneurysm with endovascular repair 6. Previous CVA with residual right-sided weakness 7. Obstructive sleep apnea without home CPAP use 8. Tuberculosis in 1985 9. Obesity with previous sleeve gastrectomy 10. Previous tobacco dependence Plan: 1. Will instill alteplase and dornase through pigtail catheter today which will be her fourth dose. 2. Wean O2 as tolerated. Bronchodilators, antibiotics per pulmonology/critical care medicine management. The patient uses 4 L of nasal cannula oxygen at home. 3. Will continue to monitor daily chest x-rays. 4. Increase activity as tolerated. 5. Medical management of other comorbidities per primary care service. 6. More recommendations to follow based on patient's clinical course. Time with Patient: Greater than 30
--- NOTE | 2021-08-07 14:26 | P.PN ---
Subjective Progress Note Date: 08/07/21 Principal diagnosis: Lung abscess On 08/06/2021 patient seen in follow-up on medical surgical floor. He is awake and alert, in no acute distress, sitting up in bed, breathing comfortably currently on 3 L of oxygen with pulse ox of 99%, denies any chest pain, denies any worsening dyspnea or cough, she has a right-sided posterior pigtail chest tube in place which is draining serosanguineous output, and output from it was in the order of 130 mL over last 24 hours. Patient has been receiving intermittent doses of TPA per cardiothoracic surgery. Today's chest x-ray showing no interval change in the appearance of right lung infiltrate pigtail drainage catheter or abscess cavity. CT chest without contrast was completed showing right lower lobe lung abscess cavity with the decrease in the degree of fluid/pus within the cavity compared to the prior study from 08/02/2021. And there was interval development of a small groundglass density in the right lower lobe with small left plural effusion. Clinically patient appears stable, she is breathing comfortably. She remains on cefepime and vancomycin for antibiotic coverage. Her pleural fluid aspirate from her right-sided pigtail chest tube catheter showed Enterobacter cloacae, and there were 2 organisms, and both were sensitive to cefepime Reevaluated today on 08/07/2021, patient is resting in bed, she is only on 2 or 3 L nasal cannula with O2 saturation in the high 90s. Patient is not in distress, continues to have a pigtail catheter in place, draining purulent fluid and sometimes seems to be serosanguineous. Being followed by thoracic surgery, patient had TPA infusion into the lung, and the cultures have been positive for Enterobacter cloaca. Patient is on cefepime, and she seems to be doing fairly well. CBC was not done today but her electrolytes are normal renal profile is normal Objective - Vital Signs Vital signs: Vital Signs Temp 98.3 F 08/07/21 11:45 Pulse 60 08/07/21 12:04 Resp 16 08/07/21 11:45 BP 162/77 08/07/21 11:45 Pulse Ox 100 08/07/21 11:45 Intake & Output 08/06/21 08/07/21 08/07/21 18:59 06:59 18:59 Intake Total 996 932 Output Total 170 0 Balance 826 932 Intake: Intake, IV Titration 996 532 Amount 0.9% NaCl with KCl 40 Meq 996 332 /l 1,000 ml @ 83 mls/hr IV .Q12H3M [facility] Rx#: [id number] Cefepime 2 gm In Sodium 200 Chloride 0.9% 100 ml @ 25 mls/hr IVPB Q8H BRE Rx#: [id number] Oral 400 Output: Chest Tube Drainage 170 0 right posterior chest 170 0 Drainage 0 Right Posterior Chest 0 Other: Voiding Method Toilet Toilet Toilet # Voids 2 3 1 # Bowel Movements 1 - Exam Physical Exam: Revealed 71-year-old female in no distress. Head: Atraumatic, normocephalic. HEENT:[Neck is supple.] [No neck masses.] [No thyromegaly.] [No JVD.] Chest: [Minimal crackles at the right base, patient continues to have a pigtail catheter connected to Pleur-evac on the right side. Cardiac Exam: [Normal S1 and S2, no S3 gallop, no murmur.] Abdomen: [Soft, nontender, no megaly, no rebound, no guarding, normal bowel danna nds.] Extremities: [No clubbing, no edema, no cyanosis.] Neurological Exam: [No focal neurologic deficit.] Psychiatric: Normal mood affect and normal mental status examination. Skin: No rashes. - Labs CBC & Chem 7: 08/06/21 06:20 08/07/21 05:59 Labs: Abnormal Lab Results - Last 24 Hours (Table) 08/07/21 08/07/21 Range/Units 05:59 11:53 Chloride 112 H (98-107) mmol/L Creatinine 0.47 L (0.52-1.04) mg/dL POC Glucose (mg/dL) 73 L (75-99) mg/dL Calcium 8.2 L (8.4-10.2) mg/dL Microbiology - Last 24 Hours (Table) 08/02/21 19:15 Blood Culture - Preliminary Blood No Growth after 96 hours 08/02/21 19:00 Blood Culture - Preliminary Blood No Growth after 96 hours Assessment and Plan Assessment: Impression: Right lung abscess secondary to Enterobacter cloaca patient received antibiotics, and she also had a pigtail catheter placed by interventional radiology history of right lung pneumonia secondary to Pseudomonas history of pulmonary embolism History of right sided spontaneous pneumothorax History of severe COPD, FEV1 of 49% Paroxysmal atrial fibrillation Underlying coronary artery disease History of endovascular aortic repair Abdominal wall hernia Hypertension History of CVA Recommendation: Continue antibiotics including cefepime may consider stopping vancomycin Continue pigtail catheter drainage We will continue to follow. Patient may require IV antibiotics at home, this will be decided upon when time comes for discharge planning Time with Patient: Less than 30
--- NOTE | 2021-08-07 16:08 | P.PN ---
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 Chronic stable medical conditions include coronary artery disease with stent, some mild right-sided weakness from prior stroke, hypertension, hyperlipidemia, obstructive sleep apnea uses CPAP machine, TB in 1985, hiatal hernia, surgery for thoracic aortic aneurysm, sleeve gastrectomy [place] [address] Hamilton. Home oxygen 4 L Patient was in the hospital from June 27 through 07/07/2021. Was admitted with right-sided pneumothorax, A. fib with rapid ventricular rate, acute pulmonary embolism. Was discharged to rehab. Was DO NOT RESUSCITATE. had presented today to Dr. 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 Patient's had a congested cough. No fever no chills. Appetite is fair. Does use a walker. Lives with her daughter. X-ray had shown at the office are larger pasty all combining the right lung. With the large mix of fluid in there. Concern for lung abscess. As patient is admitted. She is not expe ctorating any sputum though she has a congested cough. Pigtail catheter was placed in the chest/abscess. Started on IV cefepime, vancomycin. August 04: About 300 mL of vaz take fluid drained today. Decreased appetite. Tired. 4 L nasal cannula. August 05: Laying in bed. Right-sided pigtail catheter draining well. 4 L nasal cannula. Eating somewhat better. Tired. Cough. August 06: Patient is feeling better. Drained 130 mL from the pigtail catheter 24 hours. Breathing better. Oral intake improving. Sitting up and eating lunch. Decreased cough. Cultures positive for Enterobacter cloacae. 3rd dose of alteplase/dornase through pigtail catheter today. August 07: Breathing better. Coughing up some yellow-green sputum. Eating better. No fever no chills. 170 mL output from the pigtail catheter in 24 hours. IV cefepime. Under the dose ofalteplase/dornase given today Review of systems: Was done for constitutional, cardiovascular, GI, pulmonary. relevant finding as above Active Medications Acetaminophen (Acetaminophen Tab 325 Mg Tab) 650 mg PO Q6HR PRN PRN Reason: Fever and/ or Pain Last Admin: 08/07/21 13:40 Dose: 650 mg Documented by: Albuterol Sulfate (Albuterol Nebulized 2.5 Mg/3 Ml) 2.5 mg INHALATION RT-Q4H PRN PRN Reason: Shortness Of Breath Or Wheezing Albuterol/Ipratropium (Ipratropium-Albuterol 3 Ml Neb) 3 ml INHALATION RT-QID [facility] Last Admin: 08/07/21 15:28 Dose: 3 ml Documented by: Enoxaparin Sodium (Enoxaparin 80 Mg/0.8 Ml Syringe) 70 mg SQ Q12H [facility] Last Admin: 08/07/21 06:37 Dose: 70 mg Documented by: Potassium Chloride/Sodium Chloride (Ns-Kcl 40 Meq/L Iv Solution) 1,000 mls @ 83 mls/hr IV .Q12H3M [facility] Last Admin: 08/07/21 11:47 Dose: Not Given Documented by: Cefepime HCl 2 gm/ Sodium (Chloride) 100 mls @ 25 mls/hr IVPB Q8H [facility] Last Admin: 08/07/21 11:46 Dose: 25 mls/hr Documented by: Metoprolol Tartrate (Metoprolol Tartrate 50 Mg Tab) 50 mg PO TID@0800,1400,2000 [facility] Last Admin: 08/07/21 13:40 Dose: 50 mg Documented by: Miscellaneous Information (Pneumonia Protocol Utilized 1 Each Misc) 1 each PO ONCE PRN PRN Reason: Per Protocol Pantoprazole Sodium (Pantoprazole 40 Mg Tablet) 40 mg PO AC-[id number] [facility] Last Admin: 08/07/21 07:54 Dose: 40 mg Documented by: Past medical history to include: Coronary artery disease with stent, COPD, stroke with some mild right-sided weakness, hyperlipidemia, hypertension, obstructive sleep apnea uses CPAP, TB 1985, hiatal hernia, sleeve gastrectomy in 2017, surgery for thoracic aortic aneurysm, 4 L of oxygen at home, atrial fibrillation, pulmonary embolism June 2021 Social history: Started smoking age of 15 stopped in 2011. One pack a day. Alcohol occasionally. Lives with her daughter. Uses walker. Family history: [place], pacemaker, COPD Physical examination: VITAL SIGNS: 98.3, 56, 16, 1 62 x 77, 100% on 4 L GENERAL: , Sitting up in bed, not in distress EYES: Pupils equal. Conjunctiva normal. HEENT: External appearance of nose and ears normal, oral cavity grossly normal. NECK: JVD not raised; masses not palpable. HEART: First and second heart sounds are normal; no edema. LUNGS: Respiratory rate increased; decreased breath sounds. Right-sided chest pigtail catheter ABDOMEN: Soft, nontender, liver spleen not palpable, no masses palpable. PSYCH: Alert and oriented x3; mood and affect tired. MUSCULOSKELETAL:No Clubbing/cyanosis;muscles-grossly intact NEUROLOGICAL: Cranial nerves grossly intact; no facial asymmetry, power and sensation grossly intact. INVESTIGATIONS, reviewed in the clinical context: August 07: Potassium 4.2 creatinine 0.47 August 06: White count 7.3 hemoglobin 9.9 platelets 29 potassium 3.9 creatinine 0.3 August 05: White count 11.9 hemoglobin 9.9 platelets 267 potassium 3.8 creatinine 0.43 August 04: White count 7.1 hemoglobin 10.4 potassium 4.3 creatinine 0.44 White count 9.6 hemoglobin 14.3 platelets 243 sodium 135 potassium 2.9 creatinine 0.58 CRP 17.9 albumin 2.9 Coronavirus/influenza type A/influenza type B/urine Legionella antigen: Not detected EKG tracing personally reviewed by me-rate [email or web address]. Sinus rhythm. Nonspecific T- wave changes Chest x-ray film personally reviewed by [id number] lung mass with a air- fluid level Computed tomography scan chest with contrast: Large mix fluid and air rounded collection in the right upper lobe dense/11/12 cm. Congestion subsegment consolidation. Bronchopulmonary fistula not excluded. See report for more details Assessment and plan: -Large lung abscess right upper lobe measuring 1011/12 cm. lung abscess. Slow to respond August 03: Pigtail catheter was placed by interventional radiology. Continue with bronchodilators. IV /cefepime. alteplase/dornase through pigtail catheter daily. Cultures: Enterobacter cloacae . -Right-sided pneumonia suspected gram-negative organism: Slow to respond IV cefepime, -Paroxysmal atrial fibrillation Currently sinus rhythm Lopressor 12.5 mg 3 times a day -Chronic hypoxic respiratory failure from COPD On home oxygen 4 -Pulmonary embolism June 2021 Eliquis. Currently on Lovenox -COPD exacerbation in an ex-smoker- on bronchodilators, -Coronary artery disease with stent Lopressor, -Mild right hemiparesis from prior stroke -Hypokalemia: Replace Replace potassium -Essential hypertension, Lopressor 50 mg 3 times a day -Obstructive sleep apnea uses CPAP continue the same -Hiatal hernia -History of sleeve gastrectomy IV cefepime, incentive spirometry. .alteplase/dornase through pigtail catheter daily [fourth dose]. Cutback on FiO2. Discussed with patient.
[2021-08-07 17:28] LABS: Glucose,Whole Blood 84 mg/dL (75-99)
[2021-08-07 20:14] LABS: Glucose,Whole Blood 137 mg/dL (75-99)
--- NOTE | 2021-08-07 23:08 | P.CONS ---
History of Present Illness - Reason for Consult Consult date: 08/07/21 empyema Requesting physician: Kaylin Cortes - Chief Complaint shortness of breath x few days - History of Present Illness History of present illness : Patient is a 71-year female who was recently admitted at this hospital and was treated for right-sided pneumonia rex alexander on outpatient follow-up on the x-ray was noticed to have a large opacity involving the right lung for the patient was sent to the ER for a CT of the chest which was completed and it shows a large mix of fluid and air collection in the right upper lobe consistent with an abscess and adjacent consolidation patient subsequently has been evaluated by CT surgery and the patient did have a chest tube insertion completed on August 04, 2021 patient did have cultures obtained which are showing Enterobacter cloacae patient has been treated with the cefepime infectious disease was consulted today for empyema patient on presentation to the hospital was afebrile and no fever and recorded subsequently patient did have a normal white count kidney function has been normal patient with a mild elevation denies having any fever releases, the patient is breathing slightly comfortably she will be complained of some pain to the right side of the chest site of insertion of the chest tube site with intensity of 4-5 out of 10 and no radiation. Denies any nausea vomiting abdominal pain or diarrhea Review of system: CONSTITUTIONAL: Positive for weakness denies high-grade fever. EYES: No complaint. ENT: No complaint. RESPIRATORY: As per history of present illness. CARDIOVASCULAR: No complaint. GENITOURINARY: No complaint. GASTROINTESTINAL: No complaint. MUSCULOSKELETAL: No complaint. INTEGUMENTARY: No complaint. PSYCHOLOGIC: No complaint. ENDOCRINE: No complaint. NEUROLOGIC: No complaint. Past medical history : Reviewed, documented below Past surgical history : Reviewed, documented below Social history: Reviewed, documented below Medications: Reviewed, as documented below EXAMINATION: Vital sigans= Reviewed and documented below GENERAL DESCRIPTION: Elderly female lying in bed, no distress. No tachypnea or accessory muscle of respiration use. HEENT: Shows Pallor , no scleral icterus. Oral mucous membrane is dry. NECK: Trachea central, no thyromegaly. LUNGS: Unlabored breathing. Decreased breath sound at base. No wheeze or crackle. HEART: S1, S2, regular rate and rhythm. ABDOMEN: Soft, no tenderness , guarding or rigidity EXTREMITIES: No edema of feet. SKIN: No rash, no masses palpable. NEUROLOGICAL: The patient is awake, alert, oriented x3, mood and affect normal. LABS AND RADIOLOGY: Reviewed results see below Assessment : Patient admitted to hospital with large right-sided parapneumonic effusion/empyema in this patient who was recently treated for a right-sided pneumonia in this patient who is status post chest tube placement with a pleural fluid culture positive for Enterobacter Plan: 1-patient to continue cefepime 2 g every 8 hours 2-in view of extensive infection she would benefit from PICC line and outpatient IV divided therapy We will follow on clinical condition and cultures to further adjust medication if needed Thank you for this consultation we will follow the patient along with you Past Medical History Past Medical History: Coronary Artery Disease (CAD), Cancer, COPD, CVA/TIA, Hyperlipidemia, Hypertension, Myocardial Infarction (OK), Sleep Apnea/CPAP/BIPAP Additional Past Medical History / Comment(s): CAD, previous history of coronary stent, thoracic aortic aneurysm with previous endovascular stent grafting, remote history of tuberculosis back in 1985, twice a with an AHI of 21, not utilizing her BiPAP, skin cancer, history of CVA with residual right-sided weakness, obesity with a previous history of sleep gastrectomy, COPD Last Myocardial Infarction Date:: 01/25/2006 History of Any Multi-Drug Resistant Organisms: None Reported Past Surgical History: Bariatric Surgery, Cholecystectomy, Heart Catheterization With Stent, Hernia Repair Additional Past Surgical History / Comment(s): Cyst removed from thyroid, HEART CATH WITH STENT X2, SURGERY FOR Thoracic Aortic Aneurysm, Ventral hernia repair with mesh July 2017. EGD, COLONOSCOPY. sleeve gastrectomy 05/19/18 (Dr. Jose Hamilton) Past Anesthesia/Blood Transfusion Reactions: Postoperative Nausea & Vomiting (PONV) Date of Last Stent Placement:: 2009 Past Psychological History: Depression Smoking Status: Former smoker Past Alcohol Use History: Occasional Past Drug Use History: Marijuana - Past Family History Father Family Medical History: COPD, Myocardial Infarction ([place]) Mother Family Medical History: Hypertension Additional Family Medical History / Comment(s): Pacemaker, heart issues Sister(s) Family Medical History: Cancer Medications and Allergies Home Medications Medication Instructions Recorded Confirmed Type Albuterol Nebulized [Ventolin 2.5 mg INHALATION RT-QID PRN 09/14/20 08/02/21 History Nebulized] Fluticasone/Umeclidin/Vilanter 1 puff INHALATION RT-DAILY 06/27/21 08/02/21 History [Solomonlericha Ellipta 100-62.5-25] Omeprazole 40 mg PO DAILY 06/27/21 08/02/21 History Apixaban [Eliquis] 5 mg PO BID 30 Days #60 tab 07/05/21 08/02/21 Rx Furosemide [Lasix] 20 mg PO DAILY #30 tab 07/06/21 08/02/21 Rx Ipratropium-Albuterol Nebulize 3 ml INHALATION RT-QID ml 07/07/21 08/02/21 Rx [Duoneb 0.5 mg-3 mg/3 ml Soln] Metoprolol Tartrate [Lopressor] 50 mg PO TID@0800,1400,199908/02/21 08/02/21 History Potassium Chloride ER [K-Dur 10] 10 meq PO DAILY 08/02/21 08/02/21 History Allergies Allergy/AdvReac Type Severity Reaction Status Date / Time Penicillins Allergy Rash/Hives Verified 08/02/21 19:54 Sulfa (Sulfonamide Allergy Rash/Hives Verified 08/02/21 19:54 Antibiotics) sulfamethoxazole Allergy Rash/Hives Verified 08/02/21 19:54 [From Bactrim] trimethoprim [From Bactrim] Allergy Rash/Hives Verified 08/02/21 19:54 levofloxacin [From Levaquin] AdvReac Nausea & Verified 08/02/21 19:54 Vomiting Physical Exam Vitals: Vital Signs Temp Pulse Pulse Resp BP BP Pulse Ox 08/07/21 15:40 72 08/07/21 15:29 68 08/07/21 12:04 60 08/07/21 11:52 60 08/07/21 11:45 98.3 F 56 L 16 162/77 100 08/07/21 08:38 60 08/07/21 08:25 60 08/07/21 05:00 97.9 F 57 L 18 143/68 99 08/06/21 20:01 59 L 08/06/21 20:00 58 L 18 08/06/21 19:53 59 L 08/06/21 19:41 98.2 F 58 L 18 148/84 99 Intake and Output 08/07/21 08/07/21 08/07/21 06:59 14:59 22:59 Intake Total 932 Output Total 0 Balance 932 Intake: Intake, IV Titration 532 Amount 0.9% NaCl with KCl 40 Meq 332 /l 1,000 ml @ 83 mls/hr IV .Q12H3M [facility] Rx#: [id number] Cefepime 2 gm In Sodium 200 Chloride 0.9% 100 ml @ 25 mls/hr IVPB Q8H [facility] Rx#: [id number] Oral 400 Output: Chest Tube Drainage 0 right posterior chest 0 Drainage 0 Right Posterior Chest 0 Other: Voiding Method Toilet # Voids 3 1 # Bowel Movements 1 Results CBC & Chem 7: 08/06/21 06:20 08/07/21 05:59 Labs: Abnormal Lab Results - Last 24 Hours (Table) 08/07/21 08/07/21 Range/Units 05:59 11:53 Chloride 112 H (98-107) mmol/L Creatinine 0.47 L (0.52-1.04) mg/dL POC Glucose (mg/dL) 73 L (75-99) mg/dL Calcium 8.2 L (8.4-10.2) mg/dL Microbiology - Last 24 Hours (Table) 08/02/21 19:15 Blood Culture - Preliminary Blood No Growth after 96 hours 08/02/21 19:00 Blood Culture - Preliminary Blood No Growth after 96 hours
[2021-08-08] MEDS: ACETAMINOPHEN TAB 325 MG TAB PO PRN ×2 (02:28→23:15)
[2021-08-08] MEDS: CEFEPIME 2 GM in SODIUM CHLORIDE 0.9% 100 ML IVPB SCH ×3 (02:29→17:56)
[2021-08-08] MEDS: 0.9% NACL WITH KCL 40 MEQ/L 1,000 ML IV SCH ×3 (06:06→17:59)
[2021-08-08] MEDS: ENOXAPARIN 80 MG/0.8 ML SYRINGE SQ SCH ×2 (07:19→17:56)
[2021-08-08] MEDS: PANTOPRAZOLE 40 MG TABLET PO SCH (07:19)
[2021-08-08] MEDS: METOPROLOL TARTRATE 50 MG TAB PO SCH ×3 (07:19→23:15)
[2021-08-08] MEDS: IPRATROPIUM-ALBUTEROL 3 ML NEB INHALATION SCH ×4 (07:30→19:29)
[2021-08-08 07:31] LABS: Glucose,Whole Blood 78 mg/dL (75-99)
--- NOTE | 2021-08-08 07:41 | XR ---
EXAMINATION TYPE: XR chest 1V portable DATE OF EXAM: 08/08/2021 CLINICAL HISTORY: Difficulty breathing and right-sided pleural drainage catheter progress study. TECHNIQUE: Single AP portable upright view of the chest is obtained. COMPARISON: Chest x-ray from one day earlier and older studies. Chest CT 2 days ago. FINDINGS: Right mid lung pigtail pleural drainage catheter in posterior cavitary lesion is redemonst rated. Increasing opacity at this level noted from one day earlier. Background chronic emphysematous change with moderate right greater than left basilar opacities is re demonstrated. Cardiac silhouette size stable and upper limits of normal with long segment stent graft in the descending aorta redemonstrated. Metallic stent in the left circumflex artery is again seen. Osseous structures are intact. Tiny left greater than right pleural effusions remain present. IMPRESSION: Stable right midlung pigtail drainage catheter with increasing opacity at this level sugg ests recurrent fluid in the cavitary lesion. Background chronic emphysematous change redemonstrated w ith stable tiny left greater than right pleural effusions and right greater than left opacities consi stent with predominantly scarring and/or atelectasis though a component of acute infiltrate just belo w the cavitary lesion in the right lung with consolidation on CT remains present.
[2021-08-08 12:27] LABS: Glucose,Whole Blood 68 mg/dL (75-99)
[2021-08-08 12:35] LABS: Glucose,Whole Blood 88 mg/dL (75-99)
--- NOTE | 2021-08-08 13:05 | P.PN ---
Subjective Progress Note Date: 08/08/21 Principal diagnosis: Right pulmonary mass, likely abscess. Recent hospitalization for pneumonia, pulmonary embolism, pneumothorax. Past medical history significant for severe COPD with home oxygen dependence, coronary artery disease with myocardial infarction and PCI, thoracic aortic aneurysm with endovascular repair, previous CVA with residual right-sided weakness, obstructive sleep apnea without home CPAP use, tuberculosis in 1985, obesity with previous sleeve gastrectomy, previous tobacco dependence POD #[address] guided right-sided pigtail catheter insertion by interventional radiology. The patient was seen in follow-up today 08/08/2021 at her bedside on the medical oncology unit. Currently she is lying in bed, is awake, alert and oriented 3 and is in no acute apparent distress. Denies any complaints of pain or shortness of breath at this time. The patient is a 50 be discharged home. Oxygen saturations are 100% on 2 L nasal cannula and she is achieving 1250 mL on her incentive spirometry. She has been afebrile the last 24 hours. She received a fourth dose of alteplase/dornase yesterday through her right chest pigtail catheter, with only around 40-50 mL of output in the last 24 hours. The right chest pigtail catheter does have a intermittent air leak this morning with thin serosanguineous drainage. Her repeat chest x-ray this morning demonstrates an increasing right midlung opacity suggestive of recurrent fluid in the cavitary lesion. Objective - Vital Signs Vital signs: Vital Signs Temp 98.2 F 08/08/21 11:36 Pulse 60 08/08/21 11:36 Resp 18 08/08/21 11:36 BP 150/82 08/08/21 11:36 Pulse Ox 100 08/08/21 11:36 Intake & Output 08/07/21 08/08/21 08/08/21 18:59 06:59 18:59 Intake Total 996 Output Total 30 120 Balance 966 -120 Intake: Intake, IV Titration 996 Amount 0.9% NaCl with KCl 40 Meq 996 /l 1,000 ml @ 83 mls/hr IV .Q12H3M [facility] Rx#: [id number] Output: Chest Tube Drainage 30 120 right posterior chest 30 120 Other: Voiding Method Toilet Toilet Toilet # Voids 1 # Bowel Movements 1 - Exam CONSTITUTIONAL: Appears comfortable, cooperative, no acute distress RESPIRATORY: Lungs sounds diminished bilaterally. Respirations symmetrical and nonlabored. Currently on 2 L nasal cannula with oxygen saturation 100%. Able to achieve 1250 mL on incentive spirometry. Strong cough. CARDIOVASCULAR: S1, S2 present. Regular rate and rhythm. Palpable peripheral pulses bilaterally. Trace bilateral lower extremity edema present. No calf pain or tenderness noted. GASTROINTESTINAL: Abdomen soft, nontender, nondistended. Active bowel sounds present 4 quadrants. Tolerating diet. GENITOURINARY: Continues to void clear, yellow urine INTEGUMENTARY: Skin is warm and dry, dressing with scant serosanguineous drainage to her right chest to pigtail Catheter. NEUROLOGIC: Cranial nerves II through XII intact MUSKULOSKELETAL: Able to move all extremities, strength equal bilaterally. PSYCHIATRIC: Alert and oriented to person place and time, appropriate affect, intact judgment and insight INVASIVE LINES AND TUBES: Right-sided pigtail catheter present and connected to atrium to low continuous wall suction, intermittent air leak is present, 40 mL of thin serosanguineous drainage in the last 24 hours. - Allied health notes Allied health notes reviewed: nursing - Labs CBC & Chem 7: 08/06/21 06:20 08/07/21 05:59 Labs: Abnormal Lab Results - Last 24 Hours (Table) 08/07/21 08/08/21 Range/Units 20:11 12:06 POC Glucose (mg/dL) 137 H 68 L (75-99) mg/dL Microbiology - Last 24 Hours (Table) 08/03/21 15:45 Anaerobic Culture - Final Aspirate 08/02/21 19:15 Blood Culture - Preliminary Blood No Growth after 120 hours 08/02/21 19:00 Blood Culture - Preliminary Blood No Growth after 120 hours - Imaging and Cardiology Chest x-ray: report reviewed, image reviewed Assessment and Plan Assessment: 1. Right pulmonary mass, likely abscess, status post placement of right-sided pigtail catheter by interventional radiology 2. Recent hospitalization for pneumonia, pulmonary embolism, pneumothorax 3. History of severe COPD with home oxygen dependence 4. History of coronary artery disease with myocardial infarction and PCI 5. History of thoracic aortic aneurysm with endovascular repair 6. Previous CVA with residual right-sided weakness 7. Obstructive sleep apnea without home CPAP use 8. Tuberculosis in 1985 9. Obesity with previous sleeve gastrectomy 10. Previous tobacco dependence Plan: 1. We will hold off on alteplase/dornase instillation through her pigtail catheter today. Pulmonary medicine has ordered a repeat chest x-ray for 2 PM today. Keep the right chest pigtail catheter to low continuous wall suction -20 cm H2O. Monitor for air leak resolution. 2. Wean O2 as tolerated. Bronchodilators, antibiotics per pulmonology/critical care medicine management. The patient uses 4 L of nasal cannula oxygen at home. 3. Will continue to monitor daily chest x-rays. 4. Increase activity as tolerated. 5. Medical management of other comorbidities per primary care service. 6. More recommendations to follow based on patient's clinical course. Time with Patient: Greater than 30
--- NOTE | 2021-08-08 13:07 | P.PN ---
Subjective Progress Note Date: 08/08/21 This is a 71-year-old female patient who was recently hospitalized for an extensive right lung pneumonia. The patient was seen in our office yesterday the patient was found to have a large opacity involving the right lung. Based on that, the patient was referred for a computed tomography scan of the chest and the patient was found to have a 10 x 11 x 12 cm large mix fluid and air rounded collection in the right upper lobe very much consistent with a lung abscess. There was also adjacent consolidation. At the same time, the patient has postsurgical changes involving the thoracic aorta with endovascular stent. Based on this, the patient was admitted to the hospital. Patient is currently on 4 L about 2 by nasal cannula. She has a congested cough. No significant fever. No significant sputum production. The blood work is showing a white cell count 9.6 with hemoglobin 14.3 and a platelet count of 243. Creatinine is at 14 with a creatinine of 0.5 and a sodium level of 135. We think that this was a gram-negative pneumonia knowing that the patient's previous IN that occurred back in June 2021 showed a possible culture with pseudomonas aeruginosa. At the time of discharge she was given antibiotics the patient was given a prednisone burst taper. She was not given antibiotics based on my review of the records. At the same time, the patient was given anticoagulation for a pulmonary embolism in the right middle/right lower lobe pulmonary artery secondary branches. She also has history approximately atrial fibrillation and current cardiac rhythm is sinus. She has chronic hypoxic respiratory failure maintained on oxygen at 4 L per minute nasal cannula. She has advanced COPD and she has an FEV1 of 49% of predicted. She is currently admitted to the hospital for further The patient is seen today in 08/04/2021 in follow-up on the regular medical floor. She is currently resting comfortably in bed. Awake and alert in no acute distress. Maintaining O2 saturations in the mid 90s on 4 L/m per nasal cannula. Afebrile. Hemodynamically stable. This morning she had undergone a CT-guided right-sided chest tube insertion for suspected pulmonary as abscess. She had a pigtail catheter placed by interventional radiology. 300 mL of purulent thick drainage was returned. Follow-up chest x-ray reveals slightly diminished size of the right lung abscess. Catheters within the region. She had been seen by CT services and alteplase injection will be performed as well. Cultures pending. White count 7.1. Hemoglobin 10.4. Sodium 141. Potassium 4.3. Creatinine 0.44. She's been initiated on vancomycin, cefepime and azithromycin. Continued on bronchodilators. We'll add incentive spirometer. The patient is seen today 08/05/2021 follow-up on the regular medical floor. She is awake and alert in no acute distress. Breathing easier today compared to yesterday. Maintaining O2 saturations in the low 90s on room air. She's been afebrile. Hemodynamically stable. Chest x-ray continues to show significant interval reduction in the right lung abscess which contains the pigtail drainage catheter. Preliminary pleural fluid cultures are positive for gram-negative bacilli. Blood cultures reveal no growth. White count 11.9. Hemoglobin 9.9. Platelets 267. Sodium 137. Potassium 3.8. Creatinine 0.43. Glucose 85. Vancomycin trough 13.7. She remains on vancomycin and cefepime. The patient is seen today 08/08/2021 in follow-up on the regular medical floor. She is currently resting comfortably in bed. Awake and alert in no acute distress. Maintaining good O2 saturations up to 100% on 2 L/m per nasal cannula. She's afebrile. Hemodynamically stable. Chest x-ray continues to reveal a stable right midlung pigtail catheter in place with increasing opacity at the level suggest of recurrent fluid in the cavitary lesion. Chronic emphysematous changes stable. Tiny pleural effusions, stable. She has received alteplase 4 most recently yesterday. Drainage is subsided today but once the catheters flushed it has picked up again. She remains on cefepime. Continued on bronchodilators. Lovenox for DVT prophylaxis. Objective - Vital Signs Vital signs: Vital Signs Temp 98.2 F 08/08/21 11:36 Pulse 60 08/08/21 11:36 Resp 18 08/08/21 11:36 BP 150/82 08/08/21 11:36 Pulse Ox 100 08/08/21 11:36 Intake & Output 08/07/21 08/08/21 08/08/21 18:59 06:59 18:59 Intake Total 996 Output Total 30 120 Balance 966 -120 Intake: Intake, IV Titration 996 Amount 0.9% NaCl with KCl 40 Meq 996 /l 1,000 ml @ 83 mls/hr IV .Q12H3M [facility] Rx#: [id number] Output: Chest Tube Drainage 30 120 right posterior chest 30 120 Other: Voiding Method Toilet Toilet Toilet # Voids 1 # Bowel Movements 1 - Exam GENERAL EXAM: Alert, pleasant 71-year-old female patient, on 2 L/m nasal cannula O2 saturations up to 100%, comfortable in no apparent distress. HEAD: Normocephalic. EYES: Normal reaction of pupils, equal size. NOSE: Clear with pink turbinates. THROAT: No erythema or exudates. NECK: No masses, no JVD. CHEST: No chest wall deformity. LUNGS: Equal air entry with dullness and scattered rhonchi over the right lung. Right sided pigtail catheter remains in place CVS: S1 and S2 normal with no audible murmur, regular rhythm. ABDOMEN: No hepatosplenomegaly, normal bowel sounds, no guarding or rigidity. SPINE: No scoliosis or deformity SKIN: No rashes CENTRAL NERVOUS SYSTEM: No focal deficits, tone is normal in all 4 extremities. EXTREMITIES: There is no peripheral edema. No clubbing, no cyanosis. Peripheral pulses are intact. - Labs CBC & Chem 7: 08/06/21 06:20 08/07/21 05:59 Labs: Abnormal Lab Results - Last 24 Hours (Table) 08/07/21 08/08/21 Range/Units 20:11 12:06 POC Glucose (mg/dL) 137 H 68 L (75-99) mg/dL Microbiology - Last 24 Hours (Table) 08/03/21 15:45 Anaerobic Culture - Final Aspirate 08/02/21 19:15 Blood Culture - Preliminary Blood No Growth after 120 hours 08/02/21 19:00 Blood Culture - Preliminary Blood No Growth after 120 hours Assessment and Plan Assessment: 1 Right lung abscess. The patient has a complex 10 x 11 x 12 cm fluid-filled cavity in the right upper lobe consistent with a lung abscess that followed an extensive gram-negative right lung pneumonia. The patient was Hospital as back in June 2021 and at that time the patient had Pseudomonas bacteremia secondary to pneumonia. The patient is currently on vancomycin, cefepime. She did receive a pigtail catheter placement 08/04/2021 in interventional radiology with approximately 300 ML's of purulent fluid returned. She also received alteplase and dornase per CT services times 4. Initial pleural fluid cultures are positive for Enterobacter cloacae. Remains on cefepime. 2 History of an extensive right lung pneumonia with secondary pseudomonas aerug inosa septicemia hospitalized back in June 2021. The blood culture was positive on 07/03/2021 3 History of pulmonary embolism diagnosed during her most recent hospitalization and the patient was found to have clotting in the right lower lobe pulmonary artery branches and the patient was given Eliquis. 4 Severe COPD with an FEV1 of 49% of predicted at baseline 5 Acute spontaneous right-sided pneumothorax, status post smallbore chest tube placement and subsequent removal, follow-up chest x-ray shows no evidence of pneumothorax 6 Paroxysmal atrial fibrillation, currently in sinus mechanism 7 History of underlying coronary artery disease 8 History of endovascular aortic repair 9 Abdominal wall hernia 10 Hypertension 11 History of CVA Plan: The patient was seen and evaluated Chest x-ray reviewed Pleural fluid with Enterobacter Continued on cefepime Received alteplase/dornase x 4, none today thus far Follow-up chest x-ray at 2 PM today Continue incentive spirometer Continue bronchodilators Increase her activity as tolerated We will continue to follow I, the cosigning physician, performed a history & physical examination of the patient. Lungs sounds with scattered rhonchi, diminished over the right lung. Maintaining good O2 saturations in the 90s on 2 L/m per nasal cannula. I discussed the assessment and plan of care with my nurse practitioner, Gaby Alcazar. I attest to the above note as dictated by her.
--- NOTE | 2021-08-08 14:29 | XR ---
EXAMINATION TYPE: XR chest 1V portable DATE OF EXAM: 08/08/2021 CLINICAL HISTORY: Difficulty breathing and empyema progress study. TECHNIQUE: Single AP portable upright view of the chest is obtained. COMPARISON: Chest x-ray from earlier today and older studies FINDINGS: Right mid lung pigtail pleural drainage catheter in posterior cavitary lesion is redemonst rated. Stable opacity at this level noted from earlier today. Background chronic emphysematous change with right greater than left bibasilar opacities is redemonst rated. Cardiac silhouette size stable and upper limits of normal with long segment stent graft in the descending aorta redemonstrated. Stent graft in the left circumflex artery is again seen. Osseous st ructures are intact. Small to tiny left greater than right pleural effusions redemonstrated. IMPRESSION: Stable right midlung pigtail drainage catheter and opacity at this level suspicious for f luid in the cavitary lesion. Background chronic emphysematous change redemonstrated with stable multi ple tiny left greater than right pleural effusions and right greater than left bibasilar opacities co nsistent with predominantly scarring and/or atelectasis though a component of acute infiltrate just b elow the cavitary lesion in the right lung with consolidation on CT remains present. No significant c hange from earlier today.
[2021-08-08 17:38] LABS: Glucose,Whole Blood 91 mg/dL (75-99)
--- NOTE | 2021-08-08 18:57 | P.PN ---
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 Chronic stable medical conditions include coronary artery disease with stent, some mild right-sided weakness from prior stroke, hypertension, hyperlipidemia, obstructive sleep apnea uses CPAP machine, TB in 1985, hiatal hernia, surgery for thoracic aortic aneurysm, sleeve gastrectomy in [address] Hamilton. Home oxygen 4 L Patient was in the hospital from June 27 through 07/07/2021. Was admitted with right-sided pneumothorax, A. fib with rapid ventricular rate, acute pulmonary embolism. Was discharged to rehab. Was DO NOT RESUSCITATE. had presented today to Dr. 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 Patient's had a congested cough. No fever no chills. Appetite is fair. Does use a walker. Lives with her daughter. X-ray had shown at the office are larger pasty all combining the right lung. With the large mix of fluid in there. Concern for lung abscess. As patient is admitted. She is not expe ctorating any sputum though she has a congested cough. Pigtail catheter was placed in the chest/abscess. Started on IV cefepime, vancomycin. August 04: About 300 mL of vaz take fluid drained today. Decreased appetite. Tired. 4 L nasal cannula. August 05: Laying in bed. Right-sided pigtail catheter draining well. 4 L nasal cannula. Eating somewhat better. Tired. Cough. August 06: Patient is feeling better. Drained 130 mL from the pigtail catheter 24 hours. Breathing better. Oral intake improving. Sitting up and eating lunch. Decreased cough. Cultures positive for Enterobacter cloacae. 3rd dose of alteplase/dornase through pigtail catheter today. August 07: Breathing better. Coughing up some yellow-green sputum. Eating better. No fever no chills. 170 mL output from the pigtail catheter in 24 hours. IV cefepime. Under the dose of alteplase/dornase given today August 08: Put on about 40-50 mL output from the pigtail catheter in the last 24 hours. Oral intake good. Last better and getting to the commode she desaturated. FiO2 which had been dropped to 2 L was increased back to 4 L. Had some air leak today. Some serosanguineous discharge. Appetite is good. Breathing better. Coughing up sputum. Review of systems: Was done for constitutional, cardiovascular, GI, pulmonary. relevant finding as above Active Medications Acetaminophen (Acetaminophen Tab 325 Mg Tab) 650 mg PO Q6HR PRN PRN Reason: Fever and/ or Pain Last Admin: 08/08/21 02:28 Dose: 650 mg Documented by: Albuterol Sulfate (Albuterol Nebulized 2.5 Mg/3 Ml) 2.5 mg INHALATION RT-Q4H PRN PRN Reason: Shortness Of Breath Or Wheezing Albuterol/Ipratropium (Ipratropium-Albuterol 3 Ml Neb) 3 ml INHALATION RT-QID [facility] Last Admin: 08/08/21 15:38 Dose: 3 ml Documented by: Enoxaparin Sodium (Enoxaparin 80 Mg/0.8 Ml Syringe) 70 mg SQ Q12H [facility] Last Admin: 08/08/21 17:56 Dose: 70 mg Documented by: Potassium Chloride/Sodium Chloride (Ns-Kcl 40 Meq/L Iv Solution) 1,000 mls @ 83 mls/hr IV .Q12H3M [facility] Last Admin: 08/08/21 17:59 Dose: 83 mls/hr Documented by: Cefepime HCl 2 gm/ Sodium (Chloride) 100 mls @ 25 mls/hr IVPB Q8H [facility] Last Admin: 08/08/21 17:56 Dose: 25 mls/hr Documented by: Metoprolol Tartrate (Metoprolol Tartrate 50 Mg Tab) 50 mg PO TID@0800,1400,2000 [facility] Last Admin: 08/08/21 14:56 Dose: 50 mg Documented by: Miscellaneous Information (Pneumonia Protocol Utilized 1 Each [facility] [place]) 1 each PO ONCE PRN PRN Reason: Per Protocol Pantoprazole Sodium (Pantoprazole 40 Mg Tablet) 40 mg PO AC-[id number] [facility] Last Admin: 08/08/21 07:19 Dose: 40 mg Documented by: Past medical history to include: Coronary artery disease with stent, COPD, stroke with some mild right-sided weakness, hyperlipidemia, hypertension, obstructive sleep apnea uses CPAP, TB 1985, hiatal hernia, sleeve gastrectomy in 2017, surgery for thoracic aortic aneurysm, 4 L of oxygen at home, atrial fibrillation, pulmonary embolism June 2021 Social history: Started smoking age of 15 stopped in 2011. One pack a day. Alcohol occasionally. Lives with her daughter. Uses walker. Family history: ID, pacemaker, COPD Physical examination: VITAL SIGNS: 98.2, 60, 18, 150/82, 100% on 2 L GENERAL: , Sitting up in bed, not in distress EYES: Pupils equal. Conjunctiva normal. HEENT: External appearance of nose and ears normal, oral cavity grossly normal. NECK: JVD not raised; masses not palpable. HEART: First and second heart sounds are normal; no edema. LUNGS: Respiratory rate increased; decreased breath sounds. Right-sided chest pigtail catheter ABDOMEN: Soft, nontender, liver spleen not palpable, no masses palpable. PSYCH: Alert and oriented x3; mood and affect tired. MUSCULOSKELETAL:No Clubbing/cyanosis;muscles-grossly intact NEUROLOGICAL: Cranial nerves grossly intact; no facial asymmetry, power and sensation grossly intact. INVESTIGATIONS, reviewed in the clinical context: August 07: Potassium 4.2 creatinine 0.47. Check stat x-ray fluid level seen. August 06: White count 7.3 hemoglobin 9.9 platelets 29 potassium 3.9 creatinine 0.3 August 05: White count 11.9 hemoglobin 9.9 platelets 267 potassium 3.8 creatinine 0.43 August 04: White count 7.1 hemoglobin 10.4 potassium 4.3 creatinine 0.44 White count 9.6 hemoglobin 14.3 platelets 243 sodium 135 potassium 2.9 creatinine 0.58 CRP 17.9 albumin 2.9 Coronavirus/influenza type A/influenza type B/urine Legionella antigen: Not detected EKG tracing personally reviewed by [email or web address]. Sinus rhythm. Nonspecific T- wave changes Chest x-ray film personally reviewed by [id number] lung mass with a air- fluid level Computed tomography scan chest with contrast: Large mix fluid and air rounded collection in the right upper lobe dense/11/12 cm. Congestion subsegment consolidation. Bronchopulmonary fistula not excluded. See report for more details Assessment and plan: -Large lung abscess right upper lobe measuring 1011/12 cm. lung abscess. Slow to respond August 03: Pigtail catheter was placed by interventional radiology. Continue with bronchodilators. IV /cefepime. alteplase/dornase through pigtail catheter . Cultures: Enterobacter cloacae . -Right-sided pneumonia suspected gram-negative organism: Slow to respond IV cefepime, -Paroxysmal atrial fibrillation Currently sinus rhythm Lopressor 12.5 mg 3 times a day -Chronic hypoxic respiratory failure from COPD On home oxygen 4 -Pulmonary embolism June 2021 Tanna. Currently on Lovenox -COPD exacerbation in an ex-smoker- on bronchodilators, -Coronary artery disease with stent Lopressor, -Mild right hemiparesis from prior stroke -Hypokalemia: Replace Replace potassium -Essential hypertension, Lopressor 50 mg 3 times a day -Obstructive sleep apnea uses CPAP continue the same -Hiatal hernia -History of sleeve gastrectomy IV cefepime, incentive spirometry. .alteplase/dornase through pigtail catheter received for 4 days.. Continue current treatment plan. Discussed with patient.
[2021-08-08 20:01] LABS: Glucose,Whole Blood 107 mg/dL (75-99)
[2021-08-09] MEDS: CEFEPIME 2 GM in SODIUM CHLORIDE 0.9% 100 ML IVPB SCH ×3 (03:56→20:34)
[2021-08-09] MEDS: ENOXAPARIN 80 MG/0.8 ML SYRINGE SQ SCH ×2 (06:16→17:20)
[2021-08-09] MEDS: 0.9% NACL WITH KCL 40 MEQ/L 1,000 ML IV SCH ×2 (06:18→16:12)
[2021-08-09 07:17] LABS: Glucose,Whole Blood 79 mg/dL (75-99)
[2021-08-09] MEDS: IPRATROPIUM-ALBUTEROL 3 ML NEB INHALATION SCH ×4 (07:52→20:36)
[2021-08-09] MEDS ORDERED: DORNASE ALFA 5 MG in SODIUM CHLORIDE 0.9% 50 ML IRRIGATION ONE (10:00)
[2021-08-09] MEDS ORDERED: ALTEPLASE 10 MG in SODIUM CHLORIDE 0.9% 50 ML IRRIGATION ONE (10:00)
--- NOTE | 2021-08-09 11:12 | XR ---
EXAMINATION TYPE: XR chest 1V portable DATE OF EXAM: 08/09/2021 COMPARISON: 08/08/2021 INDICATION: Right lung abscess TECHNIQUE: Single frontal view of the chest is obtained. FINDINGS: The heart size is normal. The pulmonary vasculature is normal. Right lung abscess appears stable. Catheter remains present. Descending thoracic aortic stent is agai n evident. IMPRESSION: 1. Stable appearance right-sided catheter and opacification
[2021-08-09] MEDS: METOPROLOL TARTRATE 50 MG TAB PO SCH ×3 (12:21→20:34)
[2021-08-09] MEDS: PANTOPRAZOLE 40 MG TABLET PO SCH ×2 (12:21→12:32)
[2021-08-09 12:29] LABS: Glucose,Whole Blood 87 mg/dL (75-99)
--- NOTE | 2021-08-09 12:59 | P.PN ---
Subjective Progress Note Date: 08/09/21 Principal diagnosis: Right pulmonary mass, likely abscess. Recent hospitalization for pneumonia, pulmonary embolism, pneumothorax. Previous medical history of severe COPD with home oxygen dependence, coronary artery disease with myocardial infarction and PCI, thoracic aortic aneurysm with endovascular repair, previous CVA with residual right-sided weakness, obstructive sleep apnea without home CPAP use, tuberculosis in 1985, obesity with previous sleeve gastrectomy, previous tobacco dependence POD #[address] guided right-sided pigtail catheter insertion by intervent ional radiology The patient was seen and examined on 5 N. She was lying in bed in no acute distress. Denies pain, states breathing continues to improve. Oxygen has been weaned down to 2 L and she is achieving 1000 mL on incentive spirometry. No lytics were installed yesterday, pigtail catheter was flushed, patient has had 250 mL bloody drainage in the last 24 hours. Remains on IV antibiotics. Patient is expressing wishes to go home. No other new concerns. Objective - Vital Signs Vital signs: Vital Signs Temp 97.7 F 08/09/21 12:38 Pulse 80 08/09/21 12:38 Resp 22 08/09/21 12:38 BP 147/84 08/09/21 12:38 Pulse Ox 100 08/09/21 12:38 Intake & Output 08/08/21 08/09/21 08/09/21 18:59 06:59 18:59 Intake Total 996 Output Total 90 30 Balance 906 -30 Intake: Intake, IV Titration 996 Amount 0.9% NaCl with KCl 40 Meq 996 /l 1,000 ml @ 83 mls/hr IV .Q12H3M [facility] Rx#: [id number] Output: Chest Tube Drainage 90 30 right posterior chest 90 30 Other: Voiding Method Toilet Toilet # Voids 1 - Exam CONSTITUTIONAL: Appears comfortable, cooperative, no acute distress RESPIRATORY: Lungs sounds diminished bilaterally. Respirations even, nonlabored. Currently on 2 L nasal cannula with oxygen saturation 100%. Able to achieve 1000 mL on incentive spirometry. Strong productive cough. CARDIOVASCULAR: S1, S2 present. Regular rate and rhythm. Palpable peripheral pulses bilaterally. Trace bilateral lower extremity edema present. No calf pain or tenderness noted. GASTROINTESTINAL: Abdomen soft, nontender, nondistended. Active bowel sounds present 4 quadrants. Tolerating diet. GENITOURINARY: Continues to void clear, yellow urine INTEGUMENTARY: Skin is warm and dry NEUROLOGIC: Cranial nerves II through XII intact MUSKULOSKELETAL: Able to move all extremities, strength equal bilaterally PSYCHIATRIC: Alert and oriented to person place and time, appropriate affect, intact judgment and insight INVASIVE LINES AND TUBES: Right-sided pigtail catheter present and connected to atrium to continuous wall suction, 250 mL bloody thick fluid drained in the last 24 hours, no air leak present. - Allied health notes Allied health notes reviewed: nursing - Labs CBC & Chem 7: 08/06/21 06:20 08/07/21 05:59 Labs: Abnormal Lab Results - Last 24 Hours (Table) 08/08/21 Range/Units 20:00 POC Glucose (mg/dL) 107 H (75-99) mg/dL Microbiology - Last 24 Hours (Table) 08/02/21 19:15 Blood Culture - Final Blood No Growth after 144 hours 08/02/21 19:00 Blood Culture - Final Blood No Growth after 144 hours - Imaging and Cardiology Chest x-ray: report reviewed, image reviewed Assessment and Plan Assessment: 1. Right pulmonary mass, likely abscess, status post placement of right-sided pigtail catheter by interventional radiology 2. Recent hospitalization for pneumonia, pulmonary embolism, pneumothorax 3. History of severe COPD with home oxygen dependence 4. History of coronary artery disease with myocardial infarction and PCI 5. History of thoracic aortic aneurysm with endovascular repair 6. Previous CVA with residual right-sided weakness 7. Obstructive sleep apnea without home CPAP use 8. Tuberculosis in 1985 9. Obesity with previous sleeve gastrectomy 10. Previous tobacco dependence Plan: 1. Alteplase and dornase instilled today, this is dose number 5 2. Wean O2 as tolerated. Bronchodilators, antibiotics per pulmonology 3. Will continue to monitor daily x-rays 4. Increase activity as tolerated 5. Medical management of other comorbidities per primary care service. 6. More recommendations to follow Time with Patient: Greater than 30
--- NOTE | 2021-08-09 13:17 | P.PN ---
Subjective Progress Note Date: 08/09/21 Principal diagnosis: Shortness of breath This is a 71-year-old female patient who was recently hospitalized for an extensive right lung pneumonia. The patient was seen in our office yesterday the patient was found to have a large opacity involving the right lung. Based on that, the patient was referred for a computed tomography scan of the chest and the patient was found to have a 10 x 11 x 12 cm large mix fluid and air rounded collection in the right upper lobe very much consistent with a lung abscess. There was also adjacent consolidation. At the same time, the patient has postsurgical changes involving the thoracic aorta with endovascular stent. Based on this, the patient was admitted to the hospital. Patient is currently on 4 L about 2 by nasal cannula. She has a congested cough. No significant fever. No significant sputum production. The blood work is showing a white cell count 9.6 with hemoglobin 14.3 and a platelet count of 243. Creatinine is at 14 with a creatinine of 0.5 and a sodium level of 135. We think that this was a gram-negative pneumonia knowing that the patient's previous NH that occurred back in June 2021 showed a possible culture with pseudomonas aeruginosa. At the time of discharge she was given antibiotics the patient was given a prednisone burst taper. She was not given antibiotics based on my review of the records. At the same time, the patient was given anticoagulation for a pulmonary embolism in the right middle/right lower lobe pulmonary artery secondary branches. She also has history approximately atrial fibrillation and current cardiac rhythm is sinus. She has chronic hypoxic respiratory failure maintained on oxygen at 4 L per minute nasal cannula. She has advanced COPD and she has an FEV1 of 49% of predicted. She is currently admitted to the hospital for further The patient is seen today in 08/04/2021 in follow-up on the regular medical floor. She is currently resting comfortably in bed. Awake and alert in no acute distress. Maintaining O2 saturations in the mid 90s on 4 L/m per nasal ca nnula. Afebrile. Hemodynamically stable. This morning she had undergone a CT- guided right-sided chest tube insertion for suspected pulmonary as abscess. She had a pigtail catheter placed by interventional radiology. 300 mL of purulent thick drainage was returned. Follow-up chest x-ray reveals slightly diminished size of the right lung abscess. Catheters within the region. She had been seen by CT services and alteplase injection will be performed as well. Cultures pending. White count 7.1. Hemoglobin 10.4. Sodium 141. Potassium 4.3. Creatinine 0.44. She's been initiated on vancomycin, cefepime and azithromycin. Continued on bronchodilators. We'll add incentive spirometer. The patient is seen today 08/05/2021 follow-up on the regular medical floor. She is awake and alert in no acute distress. Breathing easier today compared to yesterday. Maintaining O2 saturations in the low 90s on room air. She's been afebrile. Hemodynamically stable. Chest x-ray continues to show significant interval reduction in the right lung abscess which contains the pigtail drainage catheter. Preliminary pleural fluid cultures are positive for gram-negative bacilli. Blood cultures reveal no growth. White count 11.9. Hemoglobin 9.9. Platelets 267. Sodium 137. Potassium 3.8. Creatinine 0.43. Glucose 85. Vancomycin trough 13.7. She remains on vancomycin and cefepime. On 08/06/2021 patient seen in follow-up on medical surgical floor. He is awake and alert, in no acute distress, sitting up in bed, breathing comfortably currently on 3 L of oxygen with pulse ox of 99%, denies any chest pain, denies any worsening dyspnea or cough, she has a right-sided posterior pigtail chest tube in place which is draining serosanguineous output, and output from it was in the order of 130 mL over last 24 hours. Patient has been receiving intermittent doses of TPA per cardiothoracic surgery. Today's chest x-ray showing no interval change in the appearance of right lung infiltrate pigtail drainage catheter or abscess cavity. CT chest without contrast was completed showing right lower lobe lung abscess cavity with the decrease in the degree of fluid/pus within the cavity compared to the prior study from 08/02/2021. And there was interval development of a small groundglass density in the right lower lobe with small left plural effusion. Clinically patient appears stable, she is breathing comfortably. She remains on cefepime and vancomycin for antibiotic coverage. Her pleural fluid aspirate from her right-sided pigtail chest tube catheter showed Enterobacter cloacae, and there were 2 organisms, and both were sensitive to cefepime On 08/09/2021 patient seen in follow-up on medical surgical floor, she is resting comfortably in bed, breathing comfortably, she is currently on 2 L of oxygen her pulse ox is 9200% compliant of signs have been stable, she has been afebrile overnight, she denies any chest discomfort, occasional cough, no significant phlegm production, her IV fluids are infusing at a rate of 40 ML per hour, she still has a left-sided chest tube in place, she received dornase effusion in the chest tube yesterday and the day before per CT surgery, chest tube output is 150 mL of serosanguineous output, and the pleural fluid seems to be a bit more bloody on today's exam with some clots. CT surgery is following, managing the chest tube, clinically patient has remained stable, no fever or chills, vital signs have been stable, today's chest x-ray has been reviewed Showing stable right lung abscess. She continues on cefepime for antibiotic coverage, her pleural fluid cultures showed Enterobacter cloacae, 2 different organisms. No new labs today. Objective - Vital Signs Vital signs: Vital Signs Temp 97.7 F 08/09/21 12:38 Pulse 80 08/09/21 12:38 Resp 22 08/09/21 12:38 BP 147/84 08/09/21 12:38 Pulse Ox 100 08/09/21 12:38 Intake & Output 08/08/21 08/09/21 08/09/21 18:59 06:59 18:59 Intake Total 996 Output Total 90 30 Balance 906 -30 Intake: Intake, IV Titration 996 Amount 0.9% NaCl with KCl 40 Meq 996 /l 1,000 ml @ 83 mls/hr IV .Q12H3M [facility] Rx#: [id number] Output: Chest Tube Drainage 90 30 right posterior chest 90 30 Other: Voiding Method Toilet Toilet # Voids 1 - Exam GENERAL EXAM: Alert, very pleasant, 71-year-old white female, clear on 3 L of oxygen, with a pulse ox of 99% comfortable in no apparent distress. HEAD: Normocephalic/atraumatic. EYES: Normal reaction of pupils, equal size. Conjunctiva pink, sclera white. NOSE: Clear with pink turbinates. THROAT: No erythema or exudates. NECK: No masses, no JVD, no thyroid enlargement, no adenopathy. CHEST: No chest wall deformity. Symmetrical expansion. Right posterior chest pigtail catheter in place, connected to a Pleur-evac, amount of purulent and serosanguineous output, no evidence of air leak LUNGS: Equal air entry with no crackles, wheeze, rhonchi or dullness. CVS: Regular rate and rhythm, normal S1 and S2, no gallops, no murmurs, no rubs ABDOMEN: Soft, nontender. No hepatosplenomegaly, normal bowel sounds, no guarding or rigidity. EXTREMITIES: No clubbing, no edema, no cyanosis, 2+ pulses and upper and lower extremities. MUSCULOSKELETAL: Muscle strength and tone normal. SPINE: No scoliosis or deformity SKIN: No rashes CENTRAL NERVOUS SYSTEM: Alert and oriented -3. No focal deficits, tone is normal in all 4 extremities. PSYCHIATRIC: Alert and oriented -3. Appropriate affect. Intact judgment and insight. - Labs CBC & Chem 7: 08/06/21 06:20 08/07/21 05:59 Labs: Abnormal Lab Results - Last 24 Hours (Table) 08/08/21 Range/Units 20:00 POC Glucose (mg/dL) 107 H (75-99) mg/dL Microbiology - Last 24 Hours (Table) 08/02/21 19:15 Blood Culture - Final Blood No Growth after 144 hours 08/02/21 19:00 Blood Culture - Final Blood No Growth after 144 hours Assessment and Plan Plan: #1. Right lung abscess. The patient has a complex 10 x 11 x 12 cm fluid-filled cavity in the right upper lobe consistent with a lung abscess that followed an extensive gram-negative right lung pneumonia. The patient was Hospital as back in June 2021 and at that time the patient had Pseudomonas bacteremia secondary to pneumonia. The patient is currently on vancomycin, cefepime. She did receive a pigtail catheter placement 08/04/2021 in interventional radiology with approximately 300 ML's of purulent fluid returned. She also received alteplase and dornase per CT services. Pleural fluid cultures were positive for Enterobacter cloacae, 2 different organisms, patient currently remains on cefepime, vancomycin has been discontinued #2. History of an extensive right lung pneumonia with secondary pseudomonas aeruginosa septicemia hospitalized back in June 2021. The blood culture was positive on 07/03/2021 #3. History of pulmonary embolism diagnosed during her most recent hospitalization and the patient was found to have clotting in the right lower lobe pulmonary artery branches and the patient was given Eliquis. #4. Severe COPD with an FEV1 of 49% of predicted at baseline #5. Acute spontaneous right-sided pneumothorax, status post smallbore chest tube placement and subsequent removal, follow-up chest x-ray shows no evidence of pneumothorax #6. Paroxysmal atrial fibrillation, currently in sinus mechanism #7. History of underlying coronary artery disease #8. History of endovascular aortic repair #9. Abdominal wall hernia #10. Hypertension #11. History of CVA Plan: Continue current antibiotic treatment Currently patient is on cefepime, vancomycin has been discontinued Today's chest x-ray has been reviewed Patient will receive another dose of alteplase per CT surgery services Follow-up chest x-ray tomorrow Clinically she remains stable, breathing comfortably, Wean FiO2, patient is on required 2 L of oxygen, maintaining stable O2 saturations Increase activity as tolerated, encouraged patient to sit up in a chair and deep breathing cough Follow-up labs including basic labs CBC, BMP, follow pro-calcitonin level and follow-up chest x-ray tomorrow I performed a history & physical examination of the patient and discussed their management with my nurse practitioner, Jacque Arvizu. I reviewed the nurse practitioner's note and agree with the documented findings and plan of care. Lung sounds are positive for dim breath sounds throughout the lung aden. The findings and the impression was discussed with the patient. I attest to the documentation by the nurse practitioner. Time with Patient: Less than 30
[2021-08-09] MEDS: ACETAMINOPHEN TAB 325 MG TAB PO PRN (13:42)
[2021-08-09 14:07] VITALS: BMI 29.0
[2021-08-09 17:10] LABS: Glucose,Whole Blood 96 mg/dL (75-99)
--- NOTE | 2021-08-09 21:27 | P.PN ---
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 Chronic stable medical conditions include coronary artery disease with stent, some mild right-sided weakness from prior stroke, hypertension, hyperlipidemia, obstructive sleep apnea uses CPAP machine, TB in 1985, hiatal hernia, surgery for thoracic aortic aneurysm, sleeve gastrectomy [place] [address] Hamilton. Home oxygen 4 L Patient was in the hospital from June 27 through 07/07/2021. Was admitted with right-sided pneumothorax, A. fib with rapid ventricular rate, acute pulmonary embolism. Was discharged to rehab. Was DO NOT RESUSCITATE. had presented today to Dr. 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 Patient's had a congested cough. No fever no chills. Appetite is fair. Does use a walker. Lives with her daughter. X-ray had shown at the office are larger pasty all combining the right lung. With the large mix of fluid in there. Concern for lung abscess. As patient is admitted. She is not expe ctorating any sputum though she has a congested cough. Pigtail catheter was placed in the chest/abscess. Started on IV cefepime, vancomycin. August 04: About 300 mL of vaz take fluid drained today. Decreased appetite. Tired. 4 L nasal cannula. August 05: Laying in bed. Right-sided pigtail catheter draining well. 4 L nasal cannula. Eating somewhat better. Tired. Cough. August 06: Patient is feeling better. Drained 130 mL from the pigtail catheter 24 hours. Breathing better. Oral intake improving. Sitting up and eating lunch. Decreased cough. Cultures positive for Enterobacter cloacae. 3rd dose of alteplase/dornase through pigtail catheter today. August 07: Breathing better. Coughing up some yellow-green sputum. Eating better. No fever no chills. 170 mL output from the pigtail catheter in 24 hours. IV cefepime. Under the dose of alteplase/dornase given today August 08: Put on about 40-50 mL output from the pigtail catheter in the last 24 hours. Oral intake good. Last better and getting to the commode she desaturated. FiO2 which had been dropped to 2 L was increased back to 4 L. Had some air leak today. Some serosanguineous discharge. Appetite is good. Breathing better. Coughing up sputum. August 09: Continues with a cough and some yellow-green sputum. Some bloody output from the chest tube. About 1 50 mL. FiO2 is down to 2 L. Oral intake good. Review of systems: Was done for constitutional, cardiovascular, GI, pulmonary. relevant finding as above Active Medications Acetaminophen (Acetaminophen Tab 325 Mg Tab) 650 mg PO Q6HR PRN PRN Reason: Fever and/ or Pain Last Admin: 08/09/21 13:42 Dose: 650 mg Documented by: Albuterol Sulfate (Albuterol Nebulized 2.5 Mg/3 Ml) 2.5 mg INHALATION RT-Q4H PRN PRN Reason: Shortness Of Breath Or Wheezing Albuterol/Ipratropium (Ipratropium-Albuterol 3 Ml Neb) 3 ml INHALATION RT-QID [facility] Last Admin: 08/09/21 20:36 Dose: 3 ml Documented by: Enoxaparin Sodium (Enoxaparin 80 Mg/0.8 Ml Syringe) 70 mg SQ Q12H [facility] Last Admin: 08/09/21 17:20 Dose: 70 mg Documented by: Potassium Chloride/Sodium Chloride (Ns-Kcl 40 Meq/L Iv Solution) 1,000 mls @ 83 mls/hr IV .Q12H3M [facility] Last Admin: 08/09/21 16:12 Dose: 83 mls/hr Documented by: Cefepime HCl 2 gm/ Sodium (Chloride) 100 mls @ 25 mls/hr IVPB Q8H [facility] Last Admin: 08/09/21 20:34 Dose: 25 mls/hr Documented by: Metoprolol Tartrate (Metoprolol Tartrate 50 Mg Tab) 50 mg PO TID@0800,1400,2000 [facility] Last Admin: 08/09/21 20:34 Dose: 50 mg Documented by: Miscellaneous Information (Pneumonia Protocol Util[facility] 1 each PO ONCE PRN PRN Reason: Per Protocol Pantoprazole Sodium (Pantoprazole 40 Mg Tablet) 40 mg PO [id number] [facility] Last Admin: 08/09/21 12:32 Dose: 40 mg Documented by: Past medical history to include: Coronary artery disease with stent, COPD, stroke with some mild right-sided weakness, hyperlipidemia, hypertension, obstructive sleep apnea uses CPAP, TB 1985, hiatal hernia, sleeve gastrectomy in 2018, surgery for thoracic aortic aneurysm, 4 L of oxygen at home, atrial fibrillation, pulmonary embolism June 2021 Social history: Started smoking age of 15 stopped in 2011. One pack a day. Alcohol occasionally. Lives with her daughter. Uses walker. Family history: GA, pacemaker, COPD Physical examination: VITAL SIGNS: 97.7, 80, 22, 1 4784, 100% on 2 L GENERAL: , Sitting up in bed, not in distress EYES: Pupils equal. Conjunctiva normal. HEENT: External appearance of nose and ears normal, oral cavity grossly normal. NECK: JVD not raised; masses not palpable. HEART: First and second heart sounds are normal; no edema. LUNGS: Respiratory rate increased; decreased breath sounds. Right-sided chest pigtail catheter ABDOMEN: Soft, nontender, liver spleen not palpable, no masses palpable. PSYCH: Alert and oriented x3; mood and affect tired. MUSCULOSKELETAL:No Clubbing/cyanosis;muscles-grossly intact NEUROLOGICAL: Cranial nerves grossly intact; no facial asymmetry, power and sensation grossly intact. INVESTIGATIONS, reviewed in the clinical context: August 07: Potassium 4.2 creatinine 0.47. Check stat x-ray fluid level seen. August 06: White count 7.3 hemoglobin 9.9 platelets 29 potassium 3.9 creatinine 0.3 August 05: White count 11.9 hemoglobin 9.9 platelets 267 potassium 3.8 creatinine 0.43 August 04: White count 7.1 hemoglobin 10.4 potassium 4.3 creatinine 0.44 White count 9.6 hemoglobin 14.3 platelets 243 sodium 135 potassium 2.9 creatinine 0.58 CRP 17.9 albumin 2.9 Coronavirus/influenza type A/influenza type B/urine Legionella antigen: Not detected EKG tracing personally reviewed by me-rate [email or web address]. Sinus rhythm. Nonspecific T- wave changes Chest x-ray film personally reviewed by [id number] lung mass with a air- fluid level Computed tomography scan chest with contrast: Large mix fluid and air rounded collection in the right upper lobe dense/11/12 cm. Congestion subsegment consolidation. Bronchopulmonary fistula not excluded. See report for more details Assessment and plan: -Large lung abscess right upper lobe measuring 1011/12 cm. lung abscess. Slow to respond August 03: Pigtail catheter was placed by interventional radiology. Continue with bronchodilators. IV /cefepime. alteplase/dornase through pigtail catheter . Cultures: Enterobacter cloacae . -Right-sided pneumonia suspected gram-negative organism: Slow to respond IV cefepime, -Paroxysmal atrial fibrillation Currently sinus rhythm Lopressor 12.5 mg 3 times a day -Chronic hypoxic respiratory failure from COPD On home oxygen 4 -Pulmonary embolism June. Currently on Lovenox -COPD exacerbation in an ex-smoker- on bronchodilators, -Coronary artery disease with stent Lopressor, -Mild right hemiparesis from prior stroke -Hypokalemia: Replace Replace potassium -Essential hypertension, Lopressor 50 mg 3 times a day -Obstructive sleep apnea uses CPAP continue the same -Hiatal hernia -History of sleeve gastrectomy -Chronic medical debility Will need PT OT when chest tube is out IV cefepime, incentive spirometry. .alteplase/dornase through pigtail catheter received for 4 days.. Continue current treatment plan. Discussed with patient.
--- NOTE | 2021-08-09 23:14 | P.PN ---
Subjective Progress Note Date: 08/08/21 Principal diagnosis: Pneumonia and empyema Patient is a 71-year female presented to hospital with shortness of breath and cough this we did have evidence of right-sided pneumonia and empyema status post chest tube placement culture has been positive for Enterobacter. On today's evaluation there is 08/08/2021 the patient is afebrile, the patient is breathing slightly comfortably, right-sided chest pain has decreased intensity cough decreased intensity no vomiting no abdominal pain no diarrhea Objective - Vital Signs Vital signs: Vital Signs Temp 98.4 F 08/09/21 20:38 Pulse 78 08/09/21 20:45 Resp 20 08/09/21 20:38 BP 130/70 08/09/21 20:38 Pulse Ox 96 08/09/21 20:38 Intake & Output 08/09/21 08/09/21 08/10/21 06:59 18:59 06:59 Intake Total 100 Output Total 30 100 Balance -30 0 Weight 72.121 kg Intake: Intake, IV Titration 100 Amount Cefepime 2 gm In Sodium 100 Chloride 0.9% 100 ml @ 25 mls/hr IVPB Q8H [facility] Rx#: [id number] Output: Chest Tube Drainage 30 100 right posterior chest 30 100 Other: Voiding Method Toilet # Voids 4 - Exam GENERAL DESCRIPTION: Elderly female up in the chair, no distress. No tachypnea or accessory muscle of respiration use. LUNGS: Unlabored breathing. Decreased breath sounds at the base HEART: S1, S2, regular rate and rhythm. No loud murmur ABDOMEN: Soft, no tenderness , guarding or rigidity, no organomegaly EXTREMITIES: No edema of feet. - Labs CBC & Chem 7: 08/06/21 06:20 08/07/21 05:59 Labs: Microbiology - Last 24 Hours (Table) 08/09/21 08:13 Sputum Culture - Preliminary Sputum 08/02/21 19:15 Blood Culture - Final Blood No Growth after 144 hours 08/02/21 19:00 Blood Culture - Final Blood No Growth after 144 hours Assessment and Plan Assessment: Patient with right-sided pneumonia and empyema in this patient is post chest tube placement culture has been positive for Enterobacter. Patient is currently covered with cefepime 2 g every 8hr to continue she will need midline and outpatient antibiotic therapy on discharge
[2021-08-10] MEDS: CEFEPIME 2 GM in SODIUM CHLORIDE 0.9% 100 ML IVPB SCH ×3 (03:40→18:37)
[2021-08-10] MEDS: 0.9% NACL WITH KCL 40 MEQ/L 1,000 ML IV SCH ×2 (03:40→11:43)
[2021-08-10] MEDS: ACETAMINOPHEN TAB 325 MG TAB PO PRN (06:14)
[2021-08-10 06:53] LABS: Basophils # (A) 0.1 k/uL (0-0.2); Basophils % (A) 1 %; Eosinophils # (A) 0.1 k/uL (0-0.7); Eosinophils % (A) 0 %; HCT 26.3 % (34.0-46.0); Hypochromasia Marked; Lymphocytes # (A) 1.3 k/uL (1.0-4.8); Lymphocytes % (A) 11 %; MCH 30.3 pg (25.0-35.0); MCHC 31.1 g/dL (31.0-37.0); MCV 97.3 fL (80.0-100.0); Mean Platelet Volume 7.1; Monocytes # (A) 0.5 k/uL (0-1.0); Monocytes % (A) 5 %; Neutrophils # (A) 9.8 k/uL (1.3-7.7); Neutrophils % (A) 82 %; Platelet Count 340 k/uL (150-450); RDW 14.5 % (11.5-15.5); WBC 11.8 k/uL (3.8-10.6)
[2021-08-10 06:55] LABS: HGB 8.2 gm/dL (11.4-16.0)
[2021-08-10] MEDS: PANTOPRAZOLE 40 MG TABLET PO SCH (07:24)
[2021-08-10] MEDS: ENOXAPARIN 80 MG/0.8 ML SYRINGE SQ SCH (07:25)
[2021-08-10] MEDS: METOPROLOL TARTRATE 50 MG TAB PO SCH ×3 (07:25→20:07)
[2021-08-10] MEDS: IPRATROPIUM-ALBUTEROL 3 ML NEB INHALATION SCH ×4 (09:32→19:56)
--- NOTE | 2021-08-10 09:40 | P.PN ---
Subjective Progress Note Date: 08/10/21 Principal diagnosis: Right pulmonary mass, likely abscess. Recent hospitalization for pneumonia, pulmonary embolism, pneumothorax. Past medical history significant for severe COPD with home oxygen dependence, coronary artery disease with myocardial infarction and PCI, thoracic aortic aneurysm with endovascular repair, previous CVA with residual right-sided weakness, obstructive sleep apnea without home CPAP use, tuberculosis in 1985, obesity with previous sleeve gastrectomy, previous tobacco dependence POD #[address] guided right-sided pigtail catheter insertion by interventional radiology. The patient was seen in follow-up today 08/10/2021 at her bedside on the fifth floor medical oncology unit. Currently she is lying in bed, is awake, alert and oriented 3 and is in no acute apparent distress. Denies any complaints of pain or shortness of breath at this time. Oxygen saturations are 96% on 3 L nasal cannula and she is achieving 750 mL on her incentive spirometry with much encouragement. Right chest pigtail catheter he remains in place to atrium and l ow continuous wall suction -20 cm H2O. No air leak is present. Draining thin serosanguineous drainage with 300 mL output in the last 24 hours. Remains on IV antibiotics managed by infectious disease. Remains anxious to be discharged home. She has been afebrile the last 24 hours. Objective - Vital Signs Vital signs: Vital Signs Temp 98.4 F 08/10/21 05:45 Pulse 77 08/10/21 07:36 Resp 22 08/10/21 05:45 BP 123/77 08/10/21 07:27 Pulse Ox 99 08/10/21 07:27 Intake & Output 08/09/21 08/10/21 08/10/21 18:59 06:59 18:59 Intake Total 100 1096 Output Total 100 Balance 0 1096 Weight 72.121 kg Intake: Intake, IV Titration 100 1096 Amount 0.9% NaCl with KCl 40 Meq 996 /l 1,000 ml @ 83 mls/hr IV .Q12H3M [facility] Rx#: [id number] Cefepime 2 gm In Sodium 100 100 Chloride 0.9% 100 ml @ 25 mls/hr IVPB Q8H [facility] Rx#: [id number] Output: Chest Tube Drainage 100 right posterior chest 100 Other: Voiding Method Bedside Commode # Voids 4 3 # Bowel Movements 1 - Exam CONSTITUTIONAL: Lying in bed on the fifth floor medical oncology unit. Appears comfortable, cooperative, no acute distress RESPIRATORY: Lungs sounds diminished bilaterally. Respirations symmetrical and nonlabored. Currently on 3 L nasal cannula with oxygen saturation 96 %. Able to achieve 750 mL on incentive spirometry. Strong cough. CARDIOVASCULAR: S1, S2 present. Regular rate and rhythm. Palpable peripheral pulses bilaterally. Trace bilateral lower extremity edema present. No calf pain or tenderness noted. GASTROINTESTINAL: Abdomen soft, nontender, nondistended. Active bowel sounds present 4 quadrants. Tolerating diet. GENITOURINARY: Continues to void clear, yellow urine. INTEGUMENTARY: Skin is warm and dry, dressing with scant serosanguineous drainage to her right chest to pigtail Catheter. NEUROLOGIC: Cranial nerves II through XII intact MUSKULOSKELETAL: Able to move all extremities, strength equal bilaterally. PSYCHIATRIC: Alert and oriented to person place and time, appropriate affect, intact judgment and insight INVASIVE LINES AND TUBES: Right-sided pigtail catheter present and connected to atrium to low continuous wall suction, intermittent air leak is present, 300 mL of thin serosanguineous drainage in the last 24 hours. - Allied health notes Allied health notes reviewed: nursing - Labs CBC & Chem 7: 08/10/21 06:36 08/10/21 06:36 Labs: Abnormal Lab Results - Last 24 Hours (Table) 08/09/21 08/10/21 Range/Units 15:05 06:36 WBC 11.8 H (3.8-10.6) k/uL RBC 2.70 L (3.80-5.40) m/uL Hgb 8.2 L D (11.4-16.0) gm/dL Hct 26.3 L (34.0-46.0) % Neutrophils # 9.8 H (1.3-7.7) k/uL Procalcitonin 0.13 H (0.02-0.09) ng/mL Microbiology - Last 24 Hours (Table) 08/09/21 08:13 Gram Stain - Preliminary Sputum Sputum Culture - Preliminary - Imaging and Cardiology Chest x-ray: report reviewed, image reviewed Assessment and Plan Assessment: 1. Right pulmonary mass, likely abscess, status post placement of right-sided pigtail catheter by interventional radiology 2. Recent hospitalization for pneumonia, pulmonary embolism, pneumothorax 3. History of severe COPD with home oxygen dependence 4. History of coronary artery disease with myocardial infarction and PCI 5. History of thoracic aortic aneurysm with endovascular repair 6. Previous CVA with residual right-sided weakness 7. Obstructive sleep apnea without home CPAP use 8. Tuberculosis in 1985 9. Obesity with previous sleeve gastrectomy 10. Previous tobacco dependence Plan: 1. Alteplase 10 mg in 50 mL of 0.9% normal saline was instilled to her right chest pigtail catheter which was tolerated without incident, during the installation of the dornase 5 mg only 10 mL was instilled as the patient had started coughing and coughed up a large quarter size serosanguineous tenacious sputum. She also reported she was having some respiratory difficulties requiring an increase in nasal cannula to 5 L nasal cannula currently satting at 97%. Dr. Cortes from pulmonary/critical care medicine was notified, a chest x- ray has been ordered and the patient will subsequently be transferred to the intensive care unit for closer monitoring and evaluation. 2. Wean O2 as tolerated. Bronchodilators, antibiotics per pulmonology/critical care medicine management. 3. Will continue to monitor daily chest x-rays. 4. Increase activity as tolerated. Out of bed for all meals. 5. Medical management of other comorbidities per primary care service. 6. More recommendations to follow based on patient's clinical course. Time with Patient: Greater than 30
--- NOTE | 2021-08-10 09:47 | XR ---
EXAMINATION TYPE: XR chest 1V portable DATE OF EXAM: 08/10/2021 COMPARISON: 07/30/2021 INDICATION: Pulmonary abscess TECHNIQUE: Single frontal view of the chest is obtained. FINDINGS: The heart size is normal. Aortic stents again evident. The pulmonary vasculature is normal. There is an opacity through the right mid lung. Catheter is present within this region. No suspicious air-fluid levels identified. There is some tenting of the bilateral diaphragms. Correlate for some a telectasis. Minimal effusions would be difficult to exclude IMPRESSION: 1. Stable appearance right lung abscess. Catheter remains present. 2. Mild bibasilar atelectasis.
[2021-08-10 09:50] LABS: Glucose,Whole Blood 85 mg/dL (75-99)
[2021-08-10 10:27] LABS: African American GFR (CKD) 129.7 (60.0-200.0); Albumin 2.6 g/dL (3.8-4.9); Albumin/Globulin Ratio 1.26 (1.60-3.17); Anion Gap 9.2 mmol/L (10.00-18.00); BUN/Creat Ratio 24.97 Ratio (12.00-20.00); Blood Urea Nitrogen 8.2 mg/dL (9.0-27.0); Calcium 8.5 mg/dL (8.7-10.3); Carbon Dioxide 21.6 mmol/L (20.0-27.5); Globulin 2.1 g/dL (1.6-3.3); Non-African American GFR(CKD) 111.9 (60.0-200.0); Potassium 4.6 mmol/L (3.5-5.5); Total Bilirubin 0.2 mg/dL (0.30-1.20); Total Protein 4.7 g/dL (6.2-8.2)
[2021-08-10] MEDS ORDERED: DORNASE ALFA 5 MG in SODIUM CHLORIDE 0.9% 50 ML IRRIGATION ONE (10:50)
[2021-08-10] MEDS ORDERED: ALTEPLASE 10 MG in SODIUM CHLORIDE 0.9% 50 ML IRRIGATION ONE (10:50)
--- NOTE | 2021-08-10 11:53 | XR ---
EXAMINATION TYPE: XR chest 1V portable DATE OF EXAM: 08/10/2021 COMPARISON: 08/10/2021 INDICATION: Respiratory distress TECHNIQUE: Single frontal view of the chest is obtained. FINDINGS: The heart size is normal. Aortic stent is again evident. The pulmonary vasculature is normal. The opacification right upper lung field catheter appears stable. Mild bibasilar atelectasis present. Small left pleural effusion is present. Minimal right pleural effusion may be present. IMPRESSION: 1. Stable right upper lobe opacity with drainage catheter. 2. Bibasilar atelectasis. Small pleural effusions are likely present.
[2021-08-10 11:59] LABS: Glucose,Whole Blood 90 mg/dL (75-99)
[2021-08-10 12:53] LABS: Glucose,Whole Blood 91 mg/dL (75-99)
[2021-08-10] MEDS ORDERED: FUROSEMIDE 10 MG/ML 4 ML VIAL IV STA (13:06)
--- NOTE | 2021-08-10 13:23 | P.PN ---
Subjective Progress Note Date: 08/10/21 This is a 71-year-old female patient who was recently hospitalized for an extensive right lung pneumonia. The patient was seen in our office yesterday the patient was found to have a large opacity involving the right lung. Based on that, the patient was referred for a computed tomography scan of the chest and the patient was found to have a 10 x 11 x 12 cm large mix fluid and air rounded collection in the right upper lobe very much consistent with a lung abscess. There was also adjacent consolidation. At the same time, the patient has postsurgical changes involving the thoracic aorta with endovascular stent. Based on this, the patient was admitted to the hospital. Patient is currently on 4 L about 2 by nasal cannula. She has a congested cough. No significant fever. No significant sputum production. The blood work is showing a white cell count 9.6 with hemoglobin 14.3 and a platelet count of 243. Creatinine is at 14 with a creatinine of 0.5 and a sodium level of 135. We think that this was a gram-negative pneumonia knowing that the patient's previous PA that occurred back in June 2021 showed a possible culture with pseudomonas aeruginosa. At the time of discharge she was given antibiotics the patient was given a prednisone burst taper. She was not given antibiotics based on my review of the records. At the same time, the patient was given anticoagulation for a pulmonary embolism in the right middle/right lower lobe pulmonary artery secondary branches. She also has history approximately atrial fibrillation and current cardiac rhythm is sinus. She has chronic hypoxic respiratory failure maintained on oxygen at 4 L per minute nasal cannula. She has advanced COPD and she has an FEV1 of 49% of predicted. She is currently admitted to the hospital for further The patient is seen today in 08/04/2021 in follow-up on the regular medical floor. She is currently resting comfortably in bed. Awake and alert in no acute distress. Maintaining O2 saturations in the mid 90s on 4 L/m per nasal cannula. Afebrile. Hemodynamically stable. This morning she had undergone a CT-guided right-sided chest tube insertion for suspected pulmonary as abscess. She had a pigtail catheter placed by interventional radiology. 300 mL of purulent thick drainage was returned. Follow-up chest x-ray reveals slightly diminished size of the right lung abscess. Catheters within the region. She had been seen by CT services and alteplase injection will be performed as well. Cultures pending. White count 7.1. Hemoglobin 10.4. Sodium 141. Potassium 4.3. Creatinine 0.44. She's been initiated on vancomycin, cefepime and azithromycin. Continued on bronchodilators. We'll add incentive spirometer. The patient is seen today 08/05/2021 follow-up on the regular medical floor. She is awake and alert in no acute distress. Breathing easier today compared to yesterday. Maintaining O2 saturations in the low 90s on room air. She's been afebrile. Hemodynamically stable. Chest x-ray continues to show significant interval reduction in the right lung abscess which contains the pigtail drainage catheter. Preliminary pleural fluid cultures are positive for gram-negative bacilli. Blood cultures reveal no growth. White count 11.9. Hemoglobin 9.9. Platelets 267. Sodium 137. Potassium 3.8. Creatinine 0.43. Glucose 85. Vancomycin trough 13.7. She remains on vancomycin and cefepime. The patient is seen today 08/08/2021 in follow-up on the regular medical floor. She is currently resting comfortably in bed. Awake and alert in no acute distress. Maintaining good O2 saturations up to 100% on 2 L/m per nasal cannula. She's afebrile. Hemodynamically stable. Chest x-ray continues to reveal a stable right midlung pigtail catheter in place with increasing opacity at the level suggest of recurrent fluid in the cavitary lesion. Chronic emphysematous changes stable. Tiny pleural effusions, stable. She has received alteplase 4 most recently yesterday. Drainage is subsided today but once the catheters flushed it has picked up again. She remains on cefepime. Continued on bronchodilators. Lovenox for DVT prophylaxis. The patient is seen today 08/10/2021 in follow-up on the regular medical floor. She is currently sitting up in bed. Awake and alert. Earlier this morning she was receiving alteplase per 2 services and started coughing episode. She did cough up moderate amount of blood. She became quite short of breath and had difficulty recovering. She was placed on liters high flow nasal cannula. Chest x-ray was done and revealed a stable right upper lobe opacity with pigtail catheter in place. There is bibasilar atelectasis. Small effusions. Stable compared to previous. Evidence of aortic stent. Sputum culture is revealing evidence of pseudomonas. Pleural fluid cultures were positive for Enterobacter. White count 11.8. Hemoglobin 8.2. Sodium 139. Potassium 4.6. Creatinine 0.3. AST 12. ALT 6. Pro-calcitonin 0.16. She is continued on DuoNeb inhalations, antibiotics in the form of cefepime. Lovenox was placed on hold. Objective - Vital Signs Vital signs: Vital Signs Temp 99.1 F 08/10/21 11:48 Pulse 79 08/10/21 11:48 Resp 20 08/10/21 12:22 BP 182/71 08/10/21 11:48 Pulse Ox 97 08/10/21 11:48 Intake & Output 08/09/21 08/10/21 08/10/21 18:59 06:59 18:59 Intake Total 100 1096 Output Total 100 Balance 0 1096 Weight 72.121 kg Intake: Intake, IV Titration 100 1096 Amount 0.9% NaCl with KCl 40 Meq 996 /l 1,000 ml @ 83 mls/hr IV .Q12H3M [facility] Rx#: [id number] Cefepime 2 gm In Sodium 100 100 Chloride 0.9% 100 ml @ 25 mls/hr IVPB Q8H [facility] Rx#: [id number] Output: Chest Tube Drainage 100 right posterior chest 100 Other: Voiding Method Bedside Commode # Voids 4 3 # Bowel Movements 1 - Exam GENERAL EXAM: Alert, pleasant 71-year-old female patient, on 6 L/m nasal cannula O2 saturations up to 97%, comfortable in no apparent distress. HEAD: Normocephalic. EYES: Normal reaction of pupils, equal size. NOSE: Clear with pink turbinates. THROAT: No erythema or exudates. NECK: No masses, no JVD. CHEST: No chest wall deformity. LUNGS: Equal air entry with dullness and scattered rhonchi over the right lung. End expiratory wheeze, diminished. Right sided pigtail catheter remains in place CVS: S1 and S2 normal with no audible murmur, regular rhythm. ABDOMEN: No hepatosplenomegaly, normal bowel sounds, no guarding or rigidity. SPINE: No scoliosis or deformity SKIN: No rashes CENTRAL NERVOUS SYSTEM: No focal deficits, tone is normal in all 4 extremities. EXTREMITIES: There is no peripheral edema. No clubbing, no cyanosis. Peripheral pulses are intact. - Labs CBC & Chem 7: 08/10/21 06:36 08/10/21 06:36 Labs: Abnormal Lab Results - Last 24 Hours (Table) 08/09/21 08/10/21 08/10/21 Range/Units 15:05 06:36 06:36 WBC 11.8 H (3.8-10.6) k/uL RBC 2.70 L (3.80-5.40) m/uL Hgb 8.2 L D (11.4-16.0) gm/dL Hct 26.3 L (34.0-46.0) % Neutrophils # 9.8 H (1.3-7.7) k/uL Anion Gap 9.20 L (10.00-18.00) mmol/L BUN 8.2 L (9.0-27.0) mg/dL Creatinine 0.3 L (0.6-1.5) mg/dL BUN/Creatinine Ratio 24.97 H (12.00-20.00) Ratio Calcium 8.5 L (8.7-10.3) mg/dL Total Bilirubin 0.20 L (0.30-1.20) mg/dL AST 12 L (13-35) U/L ALT 6 L (8-44) U/L Alkaline Phosphatase 26 L (41-126) U/L Total Protein 4.7 L (6.2-8.2) g/dL Albumin 2.6 L (3.8-4.9) g/dL Albumin/Globulin Ratio 1.26 L (1.60-3.17) g/dL Procalcitonin 0.13 H (0.02-0.09) ng/mL 08/10/21 Range/Units 06:36 WBC (3.8-10.6) k/uL RBC (3.80-5.40) m/uL Hgb (11.4-16.0) gm/dL Hct (34.0-46.0) % Neutrophils # (1.3-7.7) k/uL Anion Gap (10.00-18.00) mmol/L BUN (9.0-27.0) mg/dL Creatinine (0.6-1.5) mg/dL BUN/Creatinine Ratio (12.00-20.00) Ratio Calcium (8.7-10.3) mg/dL Total Bilirubin (0.30-1.20) mg/dL AST (13-35) U/L ALT (8-44) U/L Alkaline Phosphatase (41-126) U/L Total Protein (6.2-8.2) g/dL Albumin (3.8-4.9) g/dL Albumin/Globulin Ratio (1.60-3.17) g/dL Procalcitonin 0.16 H (0.02-0.09) ng/mL Microbiology - Last 24 Hours (Table) 08/09/21 08:13 Gram Stain - Preliminary Sputum Sputum Culture - Preliminary Pseudomonas spec Assessment and Plan Assessment: 1 Right lung abscess. The patient has a complex 10 x 11 x 12 cm fluid-filled cavity in the right upper lobe consistent with a lung abscess that followed an extensive gram-negative right lung pneumonia. The patient was Hospital as back in June 2021 and at that time the patient had Pseudomonas bacteremia secondary to pneumonia. The patient is currently on vancomycin, cefepime. She did receive a pigtail catheter placement 08/04/2021 in interventional radiology with approximately 300 ML's of purulent fluid returned. Initial pleural fluid cultures are positive for Enterobacter cloacae. Sputum culture revealing a Pseudomonas species Remains on cefepime. She also received alteplase and dornase per CT services. Today 08/10/2021 she developed hemoptysis and worsening shortness of breath with chest tightness and coughing. Oxygen requirements up to 6 L high flow nasal cannula. Transferred to the intensive care unit. 2 History of an extensive right lung pneumonia with secondary pseudomonas aeruginosa septicemia hospitalized back in June 2021. The blood culture was positive on 07/03/2021 3 History of pulmonary embolism diagnosed during her most recent hospitalization and the patient was found to have clotting in the right lower lobe pulmonary artery branches and the patient was given Eliquis. 4 Severe COPD with an FEV1 of 49% of predicted at baseline 5 Acute spontaneous right-sided pneumothorax, status post smallbore chest tube placement and subsequent removal, follow-up chest x-ray shows no evidence of pneumothorax 6 Paroxysmal atrial fibrillation, currently in sinus mechanism 7 History of underlying coronary artery disease 8 History of endovascular aortic repair 9 Abdominal wall hernia 10 Hypertension 11 History of CVA Plan: The patient was seen and evaluated Chest x-ray, labs, microbiology reviewed She did develop hemoptysis today with worsening shortness of breath Lovenox placed on hold Transfer to the intensive care unit Lasix 40 mg IVP 1 Insert Bowman catheter Monitor hemoptysis, hemoglobin Pleural fluid with Enterobacter Sputum culture positive for pseudomonas species Continued on cefepime Continue incentive spirometer Continue bronchodilators Add methylprednisolone 40 mg IV every 12 hours Increase her activity as tolerated We will continue to follow I, the cosigning physician, performed a history & physical examination of the patient. Lungs sounds with scattered rhonchi, diminished over the right lung, end expiratory wheeze, diminished. Maintaining O2 saturations in the 90s on 6 L/m per nasal cannula. I discussed the assessment and plan of care with my nurse practitioner, Gaby Alcazar. I attest to the above note as dictated by her.
[2021-08-10] MEDS ORDERED: LIDOCAINE 1% INJ 10MG/ML (20 ML MDV) SQ ONE (14:03)
[2021-08-10 14:07] LABS: Appearance,Urine Clear (Clear); Bilirubin,Urine Negative (Negative); Blood,Urine Negative (Negative); Color,Urine Light Yellow; Glucose,Urine (UA) Negative (Negative); Ketones,Urine Negative (Negative); Leukocyte Esterase,Urine Negative (Negative); Nitrite,Urine Negative (Negative); PH, Urine 6.5 (5.0-8.0); Protein,Urine Negative (Negative); Urobilinogen,Urine <2.0 mg/dL (<2.0)
--- NOTE | 2021-08-10 14:31 | XR ---
EXAMINATION TYPE: XR chest 1V portable DATE OF EXAM: 08/10/2021 CLINICAL HISTORY: PICC line placement . TECHNIQUE: Single AP portable semiupright view of the chest is obtained. COMPARISON: Chest x-ray from earlier today and older studies. FINDINGS: New left-sided PICC line terminates in SVC. Right mid lung pigtail pleural drainage catheter in posterior cavitary lesion is redemonstrated. Sta ble opacity at this level noted. Background chronic emphysematous change with bibasilar opacities is redemonstrated. Cardiac silhouett e size stable and upper limits of normal with long segment stent graft in the descending aorta redemo nstrated. Osseous structures are intact. Small to tiny left greater than right pleural effusions are redemonstrated. IMPRESSION: As above. New left-sided PICC line otherwise no significant change from x-ray earlier tod ay.
[2021-08-10] MEDS: methylPREDNISolone SOD SUCCI 40 MG/ML 1 ML VIAL IV SCH ×2 (14:49→20:07)
--- NOTE | 2021-08-10 14:49 | IR ---
EXAMINATION TYPE: IR cvc insert >=5 years DATE OF EXAM: 08/10/2021 COMPARISON: NONE HISTORY: Infection, needs long-term intravenous access for therapy FINDINGS: Maximal barrier technique was utilized. Hand hygiene obtained with soap and water and alco hol-based hand rub. The skin overlying the left basilic vein was localized with ultrasound and noted to be compressible and patent by ultrasound. An ultrasound [facility] Sterile technique utilized with the ultrasound machine. The skin overlying was prepped an d draped and Lidocaine used for local anesthesia. A skin dario was made with a scalpel. Access was g ained to the vein under direct ultrasound guidance with a 21-gauge needle and a 0.018 inch wire was a dvanced. Access site was dilated with a peel-away sheath and the catheter tailored to length. April ter advanced centrally and a post procedure chest x-ray verified placement with tip at the superior v ellyn cava. Catheter was fixed to the skin and a sterile dressing placed. Hemostasis achieved and the catheter was aspirated and flushed with sterile saline. The patient remained in stable condition. IMPRESSION: STATUS POST ULTRASOUND GUIDED PICC LINE PLACEMENT, READY FOR USE. THIS PROCEDURE WAS PER FORMED BY THE UNDERSIGNED.
--- NOTE | 2021-08-10 16:36 | P.PN ---
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 Chronic stable medical conditions include coronary artery disease with stent, some mild right-sided weakness from prior stroke, hypertension, hyperlipidemia, obstructive sleep apnea uses CPAP machine, TB in 1985, hiatal hernia, surgery for thoracic aortic aneurysm, sleeve gastrectomy [place] [address] Hamilton. Home oxygen 4 L Patient was in the hospital from June 27 through 07/07/2021. Was admitted with right-sided pneumothorax, A. fib with rapid ventricular rate, acute pulmonary embolism. Was discharged to rehab. Was DO NOT RESUSCITATE. had presented today to Dr. Moreau hours office for food service attendant visit. Patient's had a congested cough. No fever no chills. Appetite is fair. Does use a walker. Lives with her daughter. X-ray had shown at the office are larger pasty all combining the right lung. With the large mix of fluid in there. Concern for lung abscess. As patient is admitted. She is not expe ctorating any sputum though she has a congested cough. Pigtail catheter was placed in the chest/abscess. Started on IV cefepime, vancomycin. August 04: About 300 mL of vaz take fluid drained today. Decreased appetite. Tired. 4 L nasal cannula. August 05: Laying in bed. Right-sided pigtail catheter draining well. 4 L nasal cannula. Eating somewhat better. Tired. Cough. August 06: Patient is feeling better. Drained 130 mL from the pigtail catheter 24 hours. Breathing better. Oral intake improving. Sitting up and eating lunch. Decreased cough. Cultures positive for Enterobacter cloacae. 3rd dose of alteplase/dornase through pigtail catheter today. August 07: Breathing better. Coughing up some yellow-green sputum. Eating better. No fever no chills. 170 mL output from the pigtail catheter in 24 hours. IV cefepime. Under the dose of alteplase/dornase given today August 08: Put on about 40-50 mL output from the pigtail catheter in the last 24 hours. Oral intake good. Last better and getting to the commode she desaturated. FiO2 which had been dropped to 2 L was increased back to 4 L. Had some air leak today. Some serosanguineous discharge. Appetite is good. Breathing better. Coughing up sputum. August 09: Continues with a cough and some yellow-green sputum. Some bloody output from the chest tube. About 1 50 mL. FiO2 is down to 2 L. Oral intake good. August 10: So the patient this morning. Output through the pigtail about 1 50 mL. On 3 L of nasal cannula. Cough with yellow sputum. Oral intake good. Later this afternoon patient had morealteplase/dornase, given and patient desaturated with some bloody output. moved to the ICU. Review of systems: Was done for constitutional, cardiovascular, GI, pulmonary. relevant finding as above Active Medications Acetaminophen (Acetaminophen Tab 325 Mg Tab) 650 mg PO Q6HR PRN PRN Reason: Fever and/ or Pain Last Admin: 08/10/21 06:14 Dose: 650 mg Documented by: Albuterol Sulfate (Albuterol Nebulized 2.5 Mg/3 Ml) 2.5 mg INHALATION RT-Q4H PRN PRN Reason: Shortness Of Breath Or Wheezing Last Admin: 08/10/21 03:32 Dose: 2.5 mg Documented by: Albuterol/Ipratropium (Ipratropium-Albuterol 3 Ml Neb) 3 ml INHALATION RT-QID [facility] Last Admin: 08/10/21 15:25 Dose: 3 ml Documented by: Budesonide (Budesonide 1 Mg/2 Ml Nebu) 1 mg INHALATION RT-BID [facility] Formoterol Fumarate (Formoterol Fumarate 20 Mcg/2 Ml Nebu) 20 mcg INHALATION RT-BID [facility] Potassium Chloride/Sodium Chloride (Ns-Kcl 40 Meq/L Iv Solution) 1,000 mls @ 83 mls/hr IV .Q12H3M [facility] Last Admin: 08/10/21 11:43 Dose: 83 mls/hr Documented by: Cefepime HCl 2 gm/ Sodium (Chloride) 100 mls @ 25 mls/hr IVPB Q8H [facility] Last Admin: 08/10/21 11:40 Dose: 25 mls/hr Documented by: Methylprednisolone Sodium Succinate (Methylprednisolone Sod Succi 40 Mg/Ml 1 Ml Vial) 40 mg IV Q12HR [facility] Last Admin: 08/10/21 14:49 Dose: 40 mg Documented by: Metoprolol Tartrate (Metoprolol Tartrate 50 Mg Tab) 50 mg PO TID@0800,1400,2000 [facility] Last Admin: 08/10/21 13:17 Dose: 50 mg Documented by: Miscellaneous Information (Pneumonia Protocol Utilized 1 Each [facility]) 1 each PO ONCE PRN PRN Reason: Per Protocol Pantoprazole Sodium (Pantoprazole 40 Mg Tablet) 40 mg PO AC-BRKFST [facility] Last Admin: 08/10/21 07:24 Dose: 40 mg Documented by: Sodium Chloride (Sodium Chloride 0.9% Flush 10 Ml Syringe) 10 ml IV Q4HR PRN PRN Reason: PICC Line Sodium Chloride (Sodium Chloride 0.9% Flush 10 Ml Syringe) 10 ml IV WEEKLY [facility] Sodium Chloride (Sodium Chloride 0.9% Flush 10 Ml Syringe) 20 ml IV Q4HR PRN PRN Reason: PICC Line Past medical history to include: Coronary artery disease with stent, COPD, stroke with some mild right-sided weakness, hyperlipidemia, hypertension, obstructive sleep apnea uses CPAP, TB 1985, hiatal hernia, sleeve gastrectomy in 2017, surgery for thoracic aortic aneurysm, 4 L of oxygen at home, atrial fibrillation, pulmonary embolism June 2021 Social history: Started smoking age of 15 stopped in 2011. One pack a day. Alcohol occasionally. Lives with her daughter. Uses walker. Family history: RI, pacemaker, COPD Physical examination: VITAL SIGNS: 97.5, 78, 26, 142/68, 95% on 5 L GENERAL: , Sitting up in bed, not in distress EYES: Pupils equal. Conjunctiva normal. HEENT: External appearance of nose and ears normal, oral cavity grossly normal. NECK: JVD not raised; masses not palpable. HEART: First and second heart sounds are normal; no edema. LUNGS: Respiratory rate increased; decreased breath sounds. Right-sided chest pigtail catheter ABDOMEN: Soft, nontender, liver spleen not palpable, no masses palpable. PSYCH: Alert and oriented x3; mood and affect tired. MUSCULOSKELETAL:No Clubbing/cyanosis;muscles-grossly intact NEUROLOGICAL: Cranial nerves grossly intact; no facial asymmetry, power and sensation grossly intact. INVESTIGATIONS, reviewed in the clinical context: August 10: White count 11.8 hemoglobin 8.2 potassium 4.6 creatinine 0.3 pro- calcitonin 0.16. Chest x-ray reported to be unchanged August 07: Potassium 4.2 creatinine 0.47. Chest x-ray fluid level seen. August 06: White count 7.3 hemoglobin 9.9 platelets 29 potassium 3.9 creatinine 0.3 August 05: White count 11.9 hemoglobin 9.9 platelets 267 potassium 3.8 creatinine 0.43 August 04: White count 7.1 hemoglobin 10.4 potassium 4.3 creatinine 0.44 White count 9.6 hemoglobin 14.3 platelets 243 sodium 135 potassium 2.9 creatinine 0.58 CRP 17.9 albumin 2.9 Coronavirus/influenza type A/influenza type B/urine Legionella antigen: Not detected EKG tracing personally reviewed by me-rate [email or web address]. Sinus rhythm. Nonspecific T- wave changes Chest x-ray film personally reviewed by [id number] lung mass with a air- fluid level Computed tomography scan chest with contrast: Large mix fluid and air rounded collection in the right upper lobe dense/11/12 cm. Congestion subsegment consolidation. Bronchopulmonary fistula not excluded. See report for more details Assessment and plan: -Large lung abscess right upper lobe measuring 10/12 cm. lung abscess. Slow to respond August 03: Pigtail catheter was placed by interventional radiology. Continue with bronchodilators. IV /cefepime. alteplase/dornase through pigtail catheter . Cultures: Enterobacter cloacae -Episode of acute hypoxic today following installation ofalteplase/dornase . FiO2 increased. Patient moved to the ICU. . -Right-sided pneumonia suspected gram-negative organism: Slow to respond IV cefepime, -Paroxysmal atrial fibrillation Currently sinus rhythm Lopressor 12.5 mg 3 times a day -Chronic hypoxic respiratory failure from COPD On home oxygen 4 -Pulmonary embolism June. Currently on Lovenox -COPD exacerbation in an ex-smoker- on bronchodilators, -Coronary artery disease with stent Lopressor, -Mild right hemiparesis from prior stroke -Hypokalemia: Replace Replace potassium -Essential hypertension, Lopressor 50 mg 3 times a day -Obstructive sleep apnea uses CPAP continue the same -Hiatal hernia -History of sleeve gastrectomy -Chronic medical debility Will need PT OT when chest tube is out IV cefepime, incentive spirometry. .alteplase/dornase through pigtail catheter given today... Continue current treatment plan. Patient be moved to the ICU.
[2021-08-10] MEDS: BUDESONIDE 1 MG/2 ML NEBU INHALATION SCH (19:56)
[2021-08-10] MEDS: FORMOTEROL FUMARATE 20 MCG/2 ML NEBU INHALATION SCH (20:04)
[2021-08-10 21:15] LABS: Glucose,Whole Blood 194 mg/dL (75-99)
[2021-08-10 21:26] LABS: Glucose,Whole Blood 192 mg/dL (75-99)
[2021-08-11] MEDS: ACETAMINOPHEN TAB 325 MG TAB PO PRN (00:47)
[2021-08-11] MEDS: 0.9% NACL WITH KCL 40 MEQ/L 1,000 ML IV SCH ×2 (00:48→02:50)
[2021-08-11] MEDS: CEFEPIME 2 GM in SODIUM CHLORIDE 0.9% 100 ML IVPB SCH ×3 (03:21→18:44)
[2021-08-11 06:03] LABS: HCT 25.5 % (34.0-46.0); HGB 7.7 gm/dL (11.4-16.0); Hypochromasia Marked; MCH 29.9 pg (25.0-35.0); MCHC 30.1 g/dL (31.0-37.0); MCV 99.4 fL (80.0-100.0); Macrocytosis Slight; Mean Platelet Volume 7.4; Platelet Count 364 k/uL (150-450); RBC 2.57 m/uL (3.80-5.40); RDW 15.2 % (11.5-15.5); WBC 8.9 k/uL (3.8-10.6)
--- NOTE | 2021-08-11 06:12 | XR ---
EXAMINATION TYPE: XR chest 1V portable DATE OF EXAM: 08/11/2021 CLINICAL HISTORY: Difficulty breathing progress study. TECHNIQUE: Single AP portable semiupright view of the chest is obtained. COMPARISON: Chest x-ray from one day earlier and older studies. FINDINGS: Stable left-sided PICC line. Stable Right mid lung pigtail pleural drainage catheter in posterior cavitary lesion is redemonstrate d. Stable opacity at this level noted. Background chronic emphysematous change with bibasilar opacities is redemonstrated. Cardiac silhouett e size stable and upper limits of normal with long segment stent graft in the descending aorta redemo nstrated. There is coronary stent in the left circumflex artery redemonstrated. Osseous structures ar e intact. Small to tiny left greater than right pleural effusions are redemonstrated. IMPRESSION: Stable right midlung pigtail drainage catheter in a opacity at this level consistent with fluid in a cavitary lesion. Background chronic emphysematous change redemonstrated with stable small to tiny left greater than right pleural effusions and bibasilar opacities consistent with predominan tly scarring and/or atelectasis though a component of acute infiltrate or consolidation just below th e cavitary lesion in the right lung confirmed on CT remains present. No significant change from [facility] er today.
[2021-08-11 06:15] LABS: African American GFR (CKD) >90 (>60 ml/min/1.73 sqM); Anion Gap 4 mmol/L; Blood Urea Nitrogen 15 mg/dL (7-17); Calcium 8.9 mg/dL (8.4-10.2); Carbon Dioxide 26 mmol/L (22-30); Chloride 109 mmol/L (98-107); Glucose 122 mg/dL (74-99); Non-African American GFR(CKD) >90 (>60 ml/min/1.73 sqM); Potassium 4.8 mmol/L (3.5-5.1); Sodium 139 mmol/L (137-145)
[2021-08-11 06:50] LABS: Glucose,Whole Blood 126 mg/dL (75-99)
[2021-08-11] MEDS: PANTOPRAZOLE 40 MG TABLET PO SCH (07:08)
[2021-08-11] MEDS: BUDESONIDE 1 MG/2 ML NEBU INHALATION SCH ×2 (07:35→20:29)
[2021-08-11] MEDS: FORMOTEROL FUMARATE 20 MCG/2 ML NEBU INHALATION SCH ×2 (07:36→20:29)
[2021-08-11] MEDS: IPRATROPIUM-ALBUTEROL 3 ML NEB INHALATION SCH ×4 (07:36→20:29)
[2021-08-11] MEDS: methylPREDNISolone SOD SUCCI 40 MG/ML 1 ML VIAL IV SCH ×2 (09:08→20:20)
[2021-08-11] MEDS: METOPROLOL TARTRATE 50 MG TAB PO SCH ×3 (09:15→20:20)
--- NOTE | 2021-08-11 10:07 | P.PN ---
Subjective Progress Note Date: 08/11/21 Principal diagnosis: Right pulmonary mass, likely abscess. Recent hospitalization for pneumonia, pulmonary embolism, pneumothorax. Previous medical history of severe COPD with home oxygen dependence, coronary artery disease with myocardial infarction and PCI, thoracic aortic aneurysm with endovascular repair, previous CVA with residual right-sided weakness, obstructive sleep apnea without home CPAP use, tuberculosis in 1985, obesity with previous sleeve gastrectomy, previous tobacco dependence POD #[address] guided right-sided pigtail catheter insertion by [facility] ional radiology The patient was seen and examined sitting up in bed this morning in the intensive care unit in no acute distress. Denies pain, states breathing continues to improve. She did have some respiratory distress yesterday with instillation of alteplase/dornase, and was subsequently transferred to the intensive care unit for closer monitoring. Oxygen is currently on 5 L nasal cannula. No further lytics to be instilled. Remains on IV antibiotics, PICC line placed yesterday. No other new concerns. Objective - Vital Signs Vital signs: Vital Signs Temp 98.2 F 08/11/21 08:00 Pulse 81 08/11/21 09:00 Resp 24 08/11/21 09:00 BP 115/84 08/11/21 09:00 Pulse Ox 95 08/11/21 09:00 Intake & Output 08/10/21 08/11/21 08/11/21 18:59 06:59 18:59 Intake Total 681 913 166 Output Total 2695 420 160 Balance -2013 493 6 Weight 74.6 kg Intake: IV 581 913 166 0.9% NaCl with KCl 40 Meq 581 913 166 /l 1,000 ml @ 83 mls/hr IV .Q12H3M [facility] Rx#: [id number] Intake, IV Titration 100 Amount Cefepime 2 gm In Sodium 100 Chloride 0.9% 100 ml @ 25 mls/hr IVPB Q8H [facility] Rx#: [id number] Output: Chest Tube Drainage 110 right posterior chest 110 Drainage 10 Right Posterior Chest 10 Urine 2585 420 150 Other: Voiding Method Indwelling Catheter Indwelling Catheter - Exam CONSTITUTIONAL: Appears comfortable, cooperative, no acute distress RESPIRATORY: Lungs sounds diminished bilaterally, right greater than left. Respirations even, nonlabored. Currently on 5 L nasal cannula with oxygen saturation 99%. Strong productive cough. CARDIOVASCULAR: S1, S2 present. Regular rate and rhythm. Palpable peripheral pulses bilaterally. Trace bilateral lower extremity edema present. No calf pain or tenderness noted. GASTROINTESTINAL: Abdomen soft, nontender, nondistended. Active bowel sounds present 4 quadrants. Tolerating diet. GENITOURINARY: Continues to void clear, yellow urine INTEGUMENTARY: Skin is warm and dry NEUROLOGIC: Cranial nerves II through XII intact MUSKULOSKELETAL: Able to move all extremities, strength equal bilaterally PSYCHIATRIC: Alert and oriented to person place and time, appropriate affect, intact judgment and insight INVASIVE LINES AND TUBES: Right-sided pigtail catheter present and connected to [facility] to continuous wall suction, 120 mL bloody thick fluid drained in the last 24 hours, no air leak present. - Allied health notes Allied health notes reviewed: nursing - Labs CBC & Chem 7: 08/11/21 05:16 08/11/21 05:16 Labs: Abnormal Lab Results - Last 24 Hours (Table) 08/10/21 08/10/21 08/10/21 Range/Units 06:36 06:36 21:13 RBC (3.80-5.40) m/uL Hgb (11.4-16.0) gm/dL Hct (34.0-46.0) % MCHC (31.0-37.0) g/dL Chloride (98-107) mmol/L Anion Gap 9.20 L (10.00-18.00) mmol/L BUN 8.2 L (9.0-27.0) mg/dL Creatinine 0.3 L (0.6-1.5) mg/dL BUN/Creatinine Ratio 24.97 H (12.00-20.00) Ratio Glucose (74-99) mg/dL POC Glucose (mg/dL) 194 H (75-99) mg/dL Calcium 8.5 L (8.7-10.3) mg/dL Total Bilirubin 0.20 L (0.30-1.20) mg/dL AST 12 L (13-35) U/L ALT 6 L (8-44) U/L Alkaline Phosphatase 26 L (41-126) U/L Total Protein 4.7 L (6.2-8.2) g/dL Albumin 2.6 L (3.8-4.9) g/dL Albumin/Globulin Ratio 1.26 L (1.60-3.17) g/dL Procalcitonin 0.16 H (0.02-0.09) ng/mL 08/10/21 08/11/21 08/11/21 Range/Units 21:24 05:16 05:16 RBC 2.57 L (3.80-5.40) m/uL Hgb 7.7 L (11.4-16.0) gm/dL Hct 25.5 L (34.0-46.0) % MCHC 30.1 L (31.0-37.0) g/dL Chloride 109 H (98-107) mmol/L Anion Gap (10.00-18.00) mmol/L BUN (9.0-27.0) mg/dL Creatinine 0.39 L (0.6-1.5) mg/dL BUN/Creatinine Ratio (12.00-20.00) Ratio Glucose 122 H (74-99) mg/dL POC Glucose (mg/dL) 192 H (75-99) mg/dL Calcium (8.7-10.3) mg/dL Total Bilirubin (0.30-1.20) mg/dL AST (13-35) U/L ALT (8-44) U/L Alkaline Phosphatase (41-126) U/L Total Protein (6.2-8.2) g/dL Albumin (3.8-4.9) g/dL Albumin/Globulin Ratio (1.60-3.17) g/dL Procalcitonin (0.02-0.09) ng/mL 08/11/21 Range/Units 06:47 RBC (3.80-5.40) m/uL Hgb (11.4-16.0) gm/dL Hct (34.0-46.0) % MCHC (31.0-37.0) g/dL Chloride (98-107) mmol/L Anion Gap (10.00-18.00) mmol/L BUN (9.0-27.0) mg/dL Creatinine (0.6-1.5) mg/dL BUN/Creatinine Ratio (12.00-20.00) Ratio Glucose (74-99) mg/dL POC Glucose (mg/dL) 126 H (75-99) mg/dL Calcium (8.7-10.3) mg/dL Total Bilirubin (0.30-1.20) mg/dL AST (13-35) U/L ALT (8-44) U/L Alkaline Phosphatase (41-126) U/L Total Protein (6.2-8.2) g/dL Albumin (3.8-4.9) g/dL Albumin/Globulin Ratio (1.60-3.17) g/dL Procalcitonin (0.02-0.09) ng/mL Microbiology - Last 24 Hours (Table) 08/09/21 08:13 Gram Stain - Preliminary Sputum Sputum Culture - Preliminary Pseudomonas spec - Imaging and Cardiology Chest x-ray: report reviewed, image reviewed Assessment and Plan Assessment: 1. Right pulmonary mass, likely abscess, status post placement of right-sided pigtail catheter by interventional radiology 2. Recent hospitalization for pneumonia, pulmonary embolism, pneumothorax 3. History of severe COPD with home oxygen dependence 4. History of coronary artery disease with myocardial infarction and PCI 5. History of thoracic aortic aneurysm with endovascular repair 6. Previous CVA with residual right-sided weakness 7. Obstructive sleep apnea without home CPAP use 8. Tuberculosis in 1985 9. Obesity with previous sleeve gastrectomy 10. Previous tobacco dependence Plan: 1. No further lytics to be instilled. Pigtail catheter can be removed from our standpoint when okay with pulmonology 2. Wean O2 as tolerated. Bronchodilators, antibiotics per pulmonology 3. Increase activity as tolerated 4. Medical management of other comorbidities per primary care service. 5. Will sign off. Please call us with any further questions Time with Patient: Greater than 30
[2021-08-11 11:22] LABS: Glucose,Whole Blood 128 mg/dL (75-99)
[2021-08-11] MEDS: SODIUM CHLORIDE 0.9% 1,000 ML IV SCH (12:15)
--- NOTE | 2021-08-11 13:41 | P.PN ---
Subjective Progress Note Date: 08/11/21 Principal diagnosis: Lung abscess On 08/06/2021 patient seen in follow-up on medical surgical floor. He is awake and alert, in no acute distress, sitting up in bed, breathing comfortably currently on 3 L of oxygen with pulse ox of 99%, denies any chest pain, denies any worsening dyspnea or cough, she has a right-sided posterior pigtail chest tube in place which is draining serosanguineous output, and output from it was in the order of 130 mL over last 24 hours. Patient has been receiving intermittent doses of TPA per cardiothoracic surgery. Today's chest x-ray showing no interval change in the appearance of right lung infiltrate pigtail drainage catheter or abscess cavity. CT chest without contrast was completed showing right lower lobe lung abscess cavity with the decrease in the degree of fluid/pus within the cavity compared to the prior study from 08/02/2021. And there was interval development of a small groundglass density in the right lower lobe with small left plural effusion. Clinically patient appears stable, she is breathing comfortably. She remains on cefepime and vancomycin for antibiotic coverage. Her pleural fluid aspirate from her right-sided pigtail chest tube catheter showed Enterobacter cloacae, and there were 2 organisms, and both were sensitive to cefepime Reevaluated today on 08/07/2021, patient is resting in bed, she is only on 2 or 3 L nasal cannula with O2 saturation in the high 90s. Patient is not in distress, continues to have a pigtail catheter in place, draining purulent fluid and sometimes seems to be serosanguineous. Being followed by thoracic surgery, patient had TPA infusion into the lung, and the cultures have been positive for Enterobacter cloaca. Patient is on cefepime, and she seems to be doing fairly well. CBC was not done today but her electrolytes are normal renal profile is normal The patient is seen today 08/10/2021 in follow-up on the regular medical floor. She is currently sitting up in bed. Awake and alert. Earlier this morning she was receiving alteplase per 2 services and started coughing episode. She did cough up moderate amount of blood. She became quite short of breath and had difficulty recovering. She was placed on liters high flow nasal cannula. Chest x-ray was done and revealed a stable right upper lobe opacity with pigtail catheter in place. There is bibasilar atelectasis. Small effusions. Stable compared to previous. Evidence of aortic stent. Sputum culture is revealing evidence of pseudomonas. Pleural fluid cultures were positive for Enterobacter. White count 11.8. Hemoglobin 8.2. Sodium 139. Potassium 4.6. Creatinine 0.3. AST 12. ALT 6. Pro-calcitonin 0.16. She is continued on DuoNeb inhalations, antibiotics in the form of cefepime. Lovenox was placed on hold. Reevaluated today on 08/11/2021, patient was transferred yesterday to the ICU after she developed an episode of hemoptysis. Patient was receiving alteplase through the pigtail catheter to help clear her lung abscess. Patient said that developed an episode of hemoptysis, and we arranged for her to transfer to the ICU. Today the patient is doing much better, hardly any hemoptysis patient is feeling much per her today, breathing a lot easier, chest x-ray even is showing slight improvement in her right upper lobe abscess. Patient remains on antibiotics, and my plan is to monitor the patient over the weekend, she already had a PICC line in place, and hopefully next week we could arrange for the patient to be discharged home on IV antibiotics. Considering the patient is still having minimal hemoptysis, we'll try to monitor over the weekend. CBC showed a WBC count of 8.9 hemoglobin of 7.7, her hemoglobin was 8.2 yesterday. Objective - Vital Signs Vital signs: Vital Signs Temp 98.2 F 08/11/21 12:00 Pulse 78 08/11/21 13:00 Resp 23 08/11/21 13:00 BP 149/80 08/11/21 13:00 Pulse Ox 97 08/11/21 13:00 Intake & Output 08/10/21 08/11/21 08/11/21 18:59 06:59 18:59 Intake Total 681 913 490 Output Total 0957 420 295 Balance -2013 493 195 Weight 74.6 kg Intake: IV 581 913 490 0.9% NaCl with KCl 40 Meq 581 913 490 /l 1,000 ml @ 83 mls/hr IV .Q12H3M [facility] Rx#: [id number] Intake, IV Titration 100 Amount Cefepime 2 gm In Sodium 100 Chloride 0.9% 100 ml @ 25 mls/hr IVPB Q8H [facility] Rx#: [id number] Output: Chest Tube Drainage 110 right posterior chest 110 Drainage 10 Right Posterior Chest 10 Urine 2585 420 285 Other: Voiding Method Indwelling Catheter Indwelling Catheter Indwelling Catheter - Exam Physical Exam: Revealed 71-year-old female in no distress. On 4 L nasal cannula. Head: Atraumatic, normocephalic. HEENT:[Neck is supple.] [No neck masses.] [No thyromegaly.] [No JVD.] Chest: [Minimal crackles at the right base, patient continues to have a pigtail catheter connected to Pleur-evac on the right side. Cardiac Exam: [Normal S1 and S2, no S3 gallop, no murmur.] Abdomen: [Soft, nontender, no megaly, no rebound, no guarding, normal bowel sounds.] Extremities: [No clubbing, no edema, no cyanosis.] Neurological Exam: [No focal neurologic deficit.] Psychiatric: Normal mood affect and normal mental status examination. Skin: No rashes. - Labs CBC & Chem 7: 08/11/21 05:16 08/11/21 05:16 Labs: Abnormal Lab Results - Last 24 Hours (Table) 08/10/21 08/10/21 08/11/21 Range/Units 21:13 21:24 05:16 RBC 2.57 L (3.80-5.40) m/uL Hgb 7.7 L (11.4-16.0) gm/dL Hct 25.5 L (34.0-46.0) % MCHC 30.1 L (31.0-37.0) g/dL Chloride (98-107) mmol/L Creatinine (0.52-1.04) mg/dL Glucose (74-99) mg/dL POC Glucose (mg/dL) 194 H 192 H (75-99) mg/dL 08/11/21 08/11/21 08/11/21 Range/Units 05:16 06:47 11:20 RBC (3.80-5.40) m/uL Hgb (11.4-16.0) gm/dL Hct (34.0-46.0) % MCHC (31.0-37.0) g/dL Chloride 109 H (98-107) mmol/L Creatinine 0.39 L (0.52-1.04) mg/dL Glucose 122 H (74-99) mg/dL POC Glucose (mg/dL) 126 H 128 H (75-99) mg/dL Microbiology - Last 24 Hours (Table) 08/09/21 08:13 Gram Stain - Preliminary Sputum Sputum Culture - Preliminary Pseudomonas aeruginosa 08/03/21 15:45 Fungal Culture - Preliminary Aspirate Assessment and Plan Assessment: Impression: Right lung abscess secondary to Enterobacter cloaca remains on antibiotics. And pigtail catheter remains in place. Patient developed an episode of hemoptysis, however it is significantly improved. history of right lung pneumonia secondary to Pseudomonas history of pulmonary embolism we'll continue to hold her Eliquis, once her hemoptysis is completely resolved we'll restart the patient on Eliquis. History of right sided spontaneous pneumothorax History of severe COPD, FEV1 of 49% Paroxysmal atrial fibrillation Underlying coronary artery disease History of endovascular aortic repair Abdominal wall hernia Hypertension History of CVA Recommendation: Continue to monitor in the ICU. Continue antibiotics/cefepime. Continue pigtail catheter drainage Consider discharge planning early next week with IV antibiotics, Consider placement in a rehab facility or fpc. Prognosis remains relatively guarded. We will continue to follow. Time with Patient: Less than 30
--- NOTE | 2021-08-11 14:50 | P.PN ---
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 Holland. Chronic stable medical conditions include coronary artery disease with stent, some mild right-sided weakness from prior stroke, hypertension, hyperlipidemia, obstructive sleep apnea uses CPAP machine, TB in 1985, hiatal hernia, surgery for thoracic aortic aneurysm, sleeve gastrectomy [place] [address] Hamilton. Home oxygen 4 L Patient was in the hospital from June 27 through 07/07/2021. Was admitted with right-sided pneumothorax, A. fib with rapid ventricular rate, acute pulmonary embolism. Was discharged to rehab. Was DO NOT RESUSCITATE. had presented today to Dr. Moreau hours office for mechatronics engineer visit. Patient's had a congested cough. No fever no chills. Appetite is fair. Does use a walker. Lives with her daughter. X-ray had shown at the office are larger pasty all combining the right lung. With the large mix of fluid in there. Concern for lung abscess. As patient is admitted. She is not expe ctorating any sputum though she has a congested cough. Pigtail catheter was placed in the chest/abscess. Started on IV cefepime, vancomycin. August 04: About 300 mL of vaz take fluid drained today. Decreased appetite. Tired. 4 L nasal cannula. August 05: Laying in bed. Right-sided pigtail catheter draining well. 4 L nasal cannula. Eating somewhat better. Tired. Cough. August 06: Patient is feeling better. Drained 130 mL from the pigtail catheter 24 hours. Breathing better. Oral intake improving. Sitting up and eating lunch. Decreased cough. Cultures positive for Enterobacter cloacae. 3rd dose of alteplase/dornase through pigtail catheter today. August 07: Breathing better. Coughing up some yellow-green sputum. Eating better. No fever no chills. 170 mL output from the pigtail catheter in 24 hours. IV cefepime. Under the dose of alteplase/dornase given today August 08: Put on about 40-50 mL output from the pigtail catheter in the last 24 hours. Oral intake good. Last better and getting to the commode she desaturated. FiO2 which had been dropped to 2 L was increased back to 4 L. Had some air leak today. Some serosanguineous discharge. Appetite is good. Breathing better. Coughing up sputum. August 09: Continues with a cough and some yellow-green sputum. Some bloody output from the chest tube. About 1 50 mL. FiO2 is down to 2 L. Oral intake good. August 10: So the patient this morning. Output through the pigtail about 1 50 mL. On 3 L of nasal cannula. Cough with yellow sputum. Oral intake good. Later this afternoon patient had morealteplase/dornase, given and patient desaturated with some bloody output. moved to the ICU. August 11: ICU. On 4 L of nasal cannula. Eating some. No further hemoptysis. Breathing stable. Discussed with the patient insisted the bedside. Pigtail catheter drainage, 100 mL in last 24 hours Review of systems: Was done for constitutional, cardiovascular, GI, pulmonary. relevant finding as above Active Medications Acetaminophen (Acetaminophen Tab 325 Mg Tab) 650 mg PO Q6HR PRN PRN Reason: Fever and/ or Pain Last Admin: 08/11/21 00:47 Dose: 650 mg Documented by: Albuterol Sulfate (Albuterol Nebulized 2.5 Mg/3 Ml) 2.5 mg INHALATION RT-Q4H PRN PRN Reason: Shortness Of Breath Or Wheezing Last Admin: 08/10/21 03:32 Dose: 2.5 mg Documented by: Albuterol/Ipratropium (Ipratropium-Albuterol 3 Ml Neb) 3 ml INHALATION RT-QID PENDING SALE TO [facility] Last Admin: 08/11/21 12:12 Dose: 3 ml Documented by: Budesonide (Budesonide 1 Mg/2 Ml Nebu) 1 mg INHALATION RT-BID PENDING SALE TO [facility] Last Admin: 08/11/21 07:35 Dose: 1 mg Documented by: Formoterol Fumarate (Formoterol Fumarate 20 Mcg/2 Ml Nebu) 20 mcg INHALATION RT-BID PENDING SALE TO [facility] Last Admin: 08/11/21 07:36 Dose: 20 mcg Documented by: Cefepime HCl 2 gm/ Sodium (Chloride) 100 mls @ 25 mls/hr IVPB Q8H PENDING SALE TO [facility] Last Admin: 08/11/21 12:15 Dose: 25 mls/hr Documented by: Sodium Chloride (Saline 0.9%) 1,000 mls @ 75 mls/hr IV .[id number] PENDING SALE TO [facility] Last Admin: 08/11/21 12:15 Dose: 75 mls/hr Documented by: Methylprednisolone Sodium Succinate (Methylprednisolone Sod Succi 40 Mg/Ml 1 Ml Vial) 40 mg IV Q12HR PENDING SALE TO [facility] Last Admin: 08/11/21 09:08 Dose: 40 mg Documented by: Metoprolol Tartrate (Metoprolol Tartrate 50 Mg Tab) 50 mg PO TID@0800,1400,2000 PENDING SALE TO [facility] Last Admin: 08/11/21 14:24 Dose: 50 mg Documented by: Miscellaneous Information (Pneumonia Protocol Utilized [facility]) 1 each PO ONCE PRN PRN Reason: Per Protocol Pantoprazole Sodium (Pantoprazole 40 Mg Tablet) 40 mg PO AC-BRKFST PENDING SALE TO [facility] Last Admin: 08/11/21 07:08 Dose: 40 mg Documented by: Sodium Chloride (Sodium Chloride 0.9% Flush 10 Ml Syringe) 10 ml IV Q4HR PRN PRN Reason: PICC Line Sodium Chloride (Sodium Chloride 0.9% Flush 10 Ml Syringe) 10 ml IV WEEKLY PENDING SALE TO [facility] Sodium Chloride (Sodium Chloride 0.9% Flush 10 Ml Syringe) 20 ml IV Q4HR PRN PRN Reason: PICC Line Past medical history to include: Coronary artery disease with stent, COPD, stroke with some mild right-sided weakness, hyperlipidemia, hypertension, obstructive sleep apnea uses CPAP, TB 1985, hiatal hernia, sleeve gastrectomy in 2017, surgery for thoracic aortic aneurysm, 4 L of oxygen at home, atrial fibrillation, pulmonary embolism June 2021 Social history: Started smoking age of 15 stopped in 2011. One pack a day. Alcohol occasionally. Lives with her daughter. Uses walker. Family history: [place], pacemaker, COPD Physical examination: VITAL SIGNS: 98.2, 73, 23, 135/74, 98% on 4 L GENERAL: , Sitting up in bed, not in distress EYES: Pupils equal. Conjunctiva normal. HEENT: External appearance of nose and ears normal, oral cavity grossly normal. NECK: JVD not raised; masses not palpable. HEART: First and second heart sounds are normal; no edema. LUNGS: Respiratory rate increased; decreased breath sounds. Right-sided chest pigtail catheter ABDOMEN: Soft, nontender, liver spleen not palpable, no masses palpable. PSYCH: Alert and oriented x3; mood and affect tired. MUSCULOSKELETAL:No Clubbing/cyanosis;muscles-grossly intact NEUROLOGICAL: Cranial nerves grossly intact; no facial asymmetry, power and sensation grossly intact. INVESTIGATIONS, reviewed in the clinical context: August 11 white count 8.9 hemoglobin 7.7 platelets 364 potassium 4.8 creatinine 0.39 August 10: White count 11.8 hemoglobin 8.2 potassium 4.6 creatinine 0.3 pro- calcitonin 0.16. Chest x-ray reported to be unchanged August 07: Potassium 4.2 creatinine 0.47. Chest x-ray fluid level seen. August 06: White count 7.3 hemoglobin 9.9 platelets 29 potassium 3.9 creatinine 0.3 August 05: White count 11.9 hemoglobin 9.9 platelets 267 potassium 3.8 creatinine 0.43 August 04: White count 7.1 hemoglobin 10.4 potassium 4.3 creatinine 0.44 White count 9.6 hemoglobin 14.3 platelets 243 sodium 135 potassium 2.9 creatinine 0.58 CRP 17.9 albumin 2.9 Coronavirus/influenza type A/influenza type B/urine Legionella antigen: Not detected EKG tracing personally reviewed by me-rate 70. Sinus rhythm. Nonspecific T- wave changes Chest x-ray film personally reviewed by [id number] lung mass with a air- fluid level Computed tomography scan chest with contrast: Large mix fluid and air rounded collection in the right upper lobe dense/11/12 cm. Congestion subsegment consolidation. Bronchopulmonary fistula not excluded. See report for more details Assessment and plan: -Large lung abscess right upper lobe measuring 10/11/12 cm. lung abscess. Slow to respond August 03: Pigtail catheter - by interventional radiology. Continue with bronchodilators. IV /cefepime. alteplase/dornase through pigtail catheter . Cultures: Enterobacter cloacae -Episode of acute hypoxic on August 10 following installation ofalteplase/dornase . FiO2 increased. Patient moved to the ICU. -Isolated episode of hemoptysis following alteplase Improved . -Right-sided pneumonia suspected gram-negative organism: Slow to respond IV cefepime, -Paroxysmal atrial fibrillation Currently sinus rhythm Lopressor 12.5 mg 3 times a day -Chronic hypoxic respiratory failure from COPD On home oxygen 4 -Pulmonary embolism June. Currently on Lovenox: Held after hemoptysis -COPD exacerbation in an ex-smoker- on bronchodilators, -Coronary artery disease with stent Lopressor, -Mild right hemiparesis from prior stroke -Hypokalemia: Replace Replace potassium -Essential hypertension, Lopressor 50 mg 3 times a day -Obstructive sleep apnea uses CPAP continue the same -Hiatal hernia -History of sleeve gastrectomy -Chronic medical debility Will need PT OT when chest tube is out IV cefepime, incentive spirometry. Doing better. Discussed with the patient. Anticoagulation to be resumed when okay with pulmonary.
--- NOTE | 2021-08-11 15:32 | P.PN ---
Subjective Progress Note Date: 08/10/21 Principal diagnosis: Pneumonia and empyema Patient is a 71-year female presented to hospital with shortness of breath and cough this we did have evidence of right-sided pneumonia and empyema status post chest tube placement culture has been positive for Enterobacter. On today's evaluation there is 08/09/2021 the patient remains to be afebrile, the patient is breathing comfortably, right-sided chest pain has decreased in intensity, cough decreased intensity , the patient denies nausea vomiting no abdominal pain no diarrhea Objective - Vital Signs Vital signs: Vital Signs Temp 97.5 F L 08/10/21 13:00 Pulse 80 08/10/21 13:00 Resp 30 H 08/10/21 13:00 BP 172/79 08/10/21 13:00 Pulse Ox 96 08/10/21 13:00 Intake & Output 08/09/21 08/10/21 08/10/21 18:59 06:59 18:59 Intake Total 100 1096 Output Total 100 Balance 0 1096 Weight 72.121 kg Intake: Intake, IV Titration 100 1096 Amount 0.9% NaCl with KCl 40 Meq 996 /l 1,000 ml @ 83 mls/hr IV .Q12H3M [facility] Rx#: [id number] Cefepime 2 gm In Sodium 100 100 Chloride 0.9% 100 ml @ 25 mls/hr IVPB Q8H [facility] Rx#: [id number] Output: Chest Tube Drainage 100 right posterior chest 100 Other: Voiding Method Bedside Commode # Voids 4 3 # Bowel Movements 1 - Exam GENERAL DESCRIPTION: Elderly female up in the chair, no distress. No tachypnea or accessory muscle of respiration use. LUNGS: Unlabored breathing. Decreased breath sounds at the base HEART: S1, S2, regular rate and rhythm. No loud murmur ABDOMEN: Soft, no tenderness , guarding or rigidity, no organomegaly EXTREMITIES: No edema of feet. - Labs CBC & Chem 7: 08/11/21 05:16 08/11/21 05:16 Labs: Abnormal Lab Results - Last 24 Hours (Table) 08/09/21 08/10/21 08/10/21 Range/Units 15:05 06:36 06:36 WBC 11.8 H (3.8-10.6) k/uL RBC 2.70 L (3.80-5.40) m/uL Hgb 8.2 L D (11.4-16.0) gm/dL Hct 26.3 L (34.0-46.0) % Neutrophils # 9.8 H (1.3-7.7) k/uL Anion Gap 9.20 L (10.00-18.00) mmol/L BUN 8.2 L (9.0-27.0) mg/dL Creatinine 0.3 L (0.6-1.5) mg/dL BUN/Creatinine Ratio 24.97 H (12.00-20.00) Ratio Calcium 8.5 L (8.7-10.3) mg/dL Total Bilirubin 0.20 L (0.30-1.20) mg/dL AST 12 L (13-35) U/L ALT 6 L (8-44) U/L Alkaline Phosphatase 26 L (41-126) U/L Total Protein 4.7 L (6.2-8.2) g/dL Albumin 2.6 L (3.8-4.9) g/dL Albumin/Globulin Ratio 1.26 L (1.60-3.17) g/dL Procalcitonin 0.13 H (0.02-0.09) ng/mL 08/10/21 Range/Units 06:36 WBC (3.8-10.6) k/uL RBC (3.80-5.40) m/uL Hgb (11.4-16.0) gm/dL Hct (34.0-46.0) % Neutrophils # (1.3-7.7) k/uL Anion Gap (10.00-18.00) mmol/L BUN (9.0-27.0) mg/dL Creatinine (0.6-1.5) mg/dL BUN/Creatinine Ratio (12.00-20.00) Ratio Calcium (8.7-10.3) mg/dL Total Bilirubin (0.30-1.20) mg/dL AST (13-35) U/L ALT (8-44) U/L Alkaline Phosphatase (41-126) U/L Total Protein (6.2-8.2) g/dL Albumin (3.8-4.9) g/dL Albumin/Globulin Ratio (1.60-3.17) g/dL Procalcitonin 0.16 H (0.02-0.09) ng/mL Microbiology - Last 24 Hours (Table) 08/09/21 08:13 Gram Stain - Preliminary Sputum Sputum Culture - Preliminary Pseudomonas spec Assessment and Plan (1) Empyema Current Visit: Yes Status: Acute Code(s): J86.9 - PYOTHORAX WITHOUT FISTULA SNOMED Code(s): 471303729 Plan: atient with right-sided pneumonia and empyema in this patient is post chest tube placement culture has been positive for Enterobacter. Patient is currently covered with cefepime 2 g every 8hr to continue and monitor clinical course closely Time with Patient: Less than 30
--- NOTE | 2021-08-11 15:34 | P.PN ---
Subjective Progress Note Date: 08/09/21 Principal diagnosis: Pneumonia and empyema Patient is a 71-year female presented to hospital with shortness of breath and cough this we did have evidence of right-sided pneumonia and empyema status post chest tube placement culture has been positive for Enterobacter. On today's evaluation there is 08/09/2021 the patient continues to be afebrile, the patient is breathing slightly comfortably, the patient right-sided chest pain has decreased intensity cough decreased intensity no vomiting no abdominal pain no diarrhea Objective - Vital Signs Vital signs: Vital Signs Temp 98.4 F 08/09/21 20:38 Pulse 78 08/09/21 20:45 Resp 20 08/09/21 20:38 BP 130/70 08/09/21 20:38 Pulse Ox 96 08/09/21 20:38 Intake & Output 08/09/21 08/09/21 08/10/21 06:59 18:59 06:59 Intake Total 100 Output Total 30 100 Balance -30 0 Weight 72.121 kg Intake: Intake, IV Titration 100 Amount Cefepime 2 gm In Sodium 100 Chloride 0.9% 100 ml @ 25 mls/hr IVPB Q8H [facility] Rx#: [id number] Output: Chest Tube Drainage 30 100 right posterior chest 30 100 Other: Voiding Method Toilet # Voids 4 - Exam GENERAL DESCRIPTION: Elderly female up in the chair, no distress. No tachypnea or accessory muscle of respiration use. LUNGS: Unlabored breathing. Decreased breath sounds at the base HEART: S1, S2, regular rate and rhythm. No loud murmur ABDOMEN: Soft, no tenderness , guarding or rigidity, no organomegaly EXTREMITIES: No edema of feet. - Labs CBC & Chem 7: 08/11/21 05:16 08/11/21 05:16 Labs: Microbiology - Last 24 Hours (Table) 08/09/21 08:13 Sputum Culture - Preliminary Sputum 08/02/21 19:15 Blood Culture - Final Blood No Growth after 144 hours 08/02/21 19:00 Blood Culture - Final Blood No Growth after 144 hours Assessment and Plan (1) Empyema Current Visit: Yes Status: Acute Code(s): J86.9 - PYOTHORAX WITHOUT FISTULA SNOMED Code(s): 532580323 Plan: atient with right-sided pneumonia and empyema in this patient is post chest tube placement culture has been positive for Enterobacter. Patient is clinically responding to cefepime 2 g every 8hr which will be continued and monitor clinical course closely Time with Patient: Less than 30
--- NOTE | 2021-08-11 15:35 | P.PN ---
Subjective Progress Note Date: 08/11/21 Principal diagnosis: Pneumonia and empyema Patient is a 71-year female presented to hospital with shortness of breath and cough this we did have evidence of right-sided pneumonia and empyema status post chest tube placement culture has been positive for Enterobacter. P atient did have worsening shortness of breath and hemoptysis for the patient was transferred to the ICU on 08/10/2021 On today's evaluation there is 08/11/2021 the patient remains to be febrile, the patient is breathing slightly comfortably on nasal cannula oxygen, the patient right-sided chest pain has decreased intensity cough decreased intensity, no further hemoptysis, no vomiting no abdominal pain no diarrhea Objective - Vital Signs Vital signs: Vital Signs Temp 98.2 F 08/11/21 12:00 Pulse 73 08/11/21 14:00 Resp 19 08/11/21 14:00 BP 137/64 08/11/21 14:00 Pulse Ox 97 08/11/21 14:00 Intake & Output 08/10/21 08/11/21 08/11/21 18:59 06:59 18:59 Intake Total 681 913 565 Output Total 2695 420 370 Balance -2013 493 195 Weight 74.6 kg Intake: IV 581 913 565 0.9% NaCl with KCl 40 Meq 581 913 565 /l 1,000 ml @ 83 mls/hr IV .Q12H3M [facility] Rx#: [id number] Intake, IV Titration 100 Amount Cefepime 2 gm In Sodium 100 Chloride 0.9% 100 ml @ 25 mls/hr IVPB Q8H [facility] Rx#: [id number] Output: Chest Tube Drainage 110 right posterior chest 110 Drainage 10 Right Posterior Chest 10 Urine 2585 420 360 Other: Voiding Method Indwelling Catheter Indwelling Catheter Indwelling Catheter - Exam GENERAL DESCRIPTION: Elderly female up in the chair, no distress. No tachypnea or accessory muscle of respiration use. LUNGS: Unlabored breathing. Decreased breath sounds at the base HEART: S1, S2, regular rate and rhythm. No loud murmur ABDOMEN: Soft, no tenderness , guarding or rigidity, no organomegaly EXTREMITIES: No edema of feet. - Labs CBC & Chem 7: 08/11/21 05:16 08/11/21 05:16 Labs: Abnormal Lab Results - Last 24 Hours (Table) 08/10/21 08/10/21 08/11/21 Range/Units 21:13 21:24 05:16 RBC 2.57 L (3.80-5.40) m/uL Hgb 7.7 L (11.4-16.0) gm/dL Hct 25.5 L (34.0-46.0) % MCHC 30.1 L (31.0-37.0) g/dL Chloride (98-107) mmol/L Creatinine (0.52-1.04) mg/dL Glucose (74-99) mg/dL POC Glucose (mg/dL) 194 H 192 H (75-99) mg/dL 08/11/21 08/11/21 08/11/21 Range/Units 05:16 06:47 11:20 RBC (3.80-5.40) m/uL Hgb (11.4-16.0) gm/dL Hct (34.0-46.0) % MCHC (31.0-37.0) g/dL Chloride 109 H (98-107) mmol/L Creatinine 0.39 L (0.52-1.04) mg/dL Glucose 122 H (74-99) mg/dL POC Glucose (mg/dL) 126 H 128 H (75-99) mg/dL Microbiology - Last 24 Hours (Table) 08/09/21 08:13 Gram Stain - Preliminary Sputum Sputum Culture - Preliminary Pseudomonas aeruginosa 08/03/21 15:45 Fungal Culture - Preliminary Aspirate Assessment and Plan (1) Empyema Current Visit: Yes Status: Acute Code(s): J86.9 - PYOTHORAX WITHOUT FISTULA SNOMED Code(s): 094734914 Plan: atient with right-sided pneumonia and empyema in this patient is post chest tube placement culture has been positive for Enterobacter for the patient is currently covered with cefepime 2 g every 8hr which will be continued and monitor clinical course closely, prognosis remains to be guarded Time with Patient: Less than 30
[2021-08-11 16:42] LABS: Glucose,Whole Blood 145 mg/dL (75-99)
[2021-08-11 20:50] LABS: Glucose,Whole Blood 115 mg/dL (75-99)
[2021-08-12] MEDS: ACETAMINOPHEN TAB 325 MG TAB PO PRN (00:22)
[2021-08-12] MEDS: CEFEPIME 2 GM in SODIUM CHLORIDE 0.9% 100 ML IVPB SCH ×3 (02:15→17:57)
[2021-08-12 04:16] LABS: Basophils % (A) 0 %; Eosinophils % (A) 0 %; HCT 24.3 % (34.0-46.0); HGB 7.3 gm/dL (11.4-16.0); Hypochromasia Marked; Lymphocytes # (A) 1.2 k/uL (1.0-4.8); Lymphocytes % (A) 7 %; MCH 29.7 pg (25.0-35.0); MCV 99.1 fL (80.0-100.0); Macrocytosis Slight; Mean Platelet Volume 7.2; Monocytes # (A) 0.3 k/uL (0-1.0); Monocytes % (A) 2 %; Neutrophils # (A) 14.6 k/uL (1.3-7.7); Neutrophils % (A) 90 %; Platelet Count 383 k/uL (150-450); RBC 2.45 m/uL (3.80-5.40); RDW 15.2 % (11.5-15.5); WBC 16.3 k/uL (3.8-10.6)
[2021-08-12 04:31] LABS: African American GFR (CKD) >90 (>60 ml/min/1.73 sqM); Anion Gap 4 mmol/L; Blood Urea Nitrogen 19 mg/dL (7-17); Calcium 9.1 mg/dL (8.4-10.2); Carbon Dioxide 24 mmol/L (22-30); Chloride 110 mmol/L (98-107); Glucose 126 mg/dL (74-99); Non-African American GFR(CKD) >90 (>60 ml/min/1.73 sqM); Potassium 4.6 mmol/L (3.5-5.1); Sodium 138 mmol/L (137-145)
[2021-08-12] MEDS: PANTOPRAZOLE 40 MG TABLET PO SCH (06:07)
[2021-08-12] MEDS: SODIUM CHLORIDE 0.9% 1,000 ML IV SCH ×2 (06:08→15:34)
[2021-08-12 06:58] LABS: Glucose,Whole Blood 112 mg/dL (75-99)
--- NOTE | 2021-08-12 07:00 | XR ---
EXAMINATION TYPE: XR chest 1V portable DATE OF EXAM: 08/12/2021 5:35 AM COMPARISON:Multiple radiographs, with the most recent on TECHNIQUE: Frontal view of the chest. CLINICAL INDICATION:Female, 71 years old with history of chest tube; FINDINGS: Lungs/Pleura: Improved airspace opacities on today's exam. Persistent linear band like right midlung airspace opacity is present. Pulmonary vascularity: Unremarkable. Heart/mediastinum: Cardiomediastinal silhouette is unremarkable. Stent graft is in place. Musculoskeletal: No acute osseous pathology. Lines/Tubes: Right thoracotomy tube is present without evidence of pneumothorax. IMPRESSION: Right thoracotomy tube is present without evidence of pneumothorax. Bandlike right midlung airspace opacity has decreased in size.
[2021-08-12] MEDS: FORMOTEROL FUMARATE 20 MCG/2 ML NEBU INHALATION SCH ×2 (08:30→20:03)
[2021-08-12] MEDS: BUDESONIDE 1 MG/2 ML NEBU INHALATION SCH ×2 (08:30→20:03)
[2021-08-12] MEDS: IPRATROPIUM-ALBUTEROL 3 ML NEB INHALATION SCH ×4 (08:30→20:03)
[2021-08-12] MEDS: METOPROLOL TARTRATE 50 MG TAB PO SCH ×3 (09:35→20:22)
[2021-08-12] MEDS: methylPREDNISolone SOD SUCCI 40 MG/ML 1 ML VIAL IV SCH ×2 (09:35→20:22)
[2021-08-12 11:19] LABS: Glucose,Whole Blood 94 mg/dL (75-99)
--- NOTE | 2021-08-12 14:00 | P.PN ---
Subjective Progress Note Date: 08/12/21 Principal diagnosis: Lung abscess On 08/06/2021 patient seen in follow-up on medical surgical floor. He is awake and alert, in no acute distress, sitting up in bed, breathing comfortably currently on 3 L of oxygen with pulse ox of 99%, denies any chest pain, denies any worsening dyspnea or cough, she has a right-sided posterior pigtail chest tube in place which is draining serosanguineous output, and output from it was in the order of 130 mL over last 24 hours. Patient has been receiving intermittent doses of TPA per cardiothoracic surgery. Today's chest x-ray showing no interval change in the appearance of right lung infiltrate pigtail drainage catheter or abscess cavity. CT chest without contrast was completed showing right lower lobe lung abscess cavity with the decrease in the degree of fluid/pus within the cavity compared to the prior study from 08/02/2021. And there was interval development of a small groundglass density in the right lower lobe with small left plural effusion. Clinically patient appears stable, she is breathing comfortably. She remains on cefepime and vancomycin for antibiotic coverage. Her pleural fluid aspirate from her right-sided pigtail chest tube catheter showed Enterobacter cloacae, and there were 2 organisms, and both were sensitive to cefepime Reevaluated today on 08/07/2021, patient is resting in bed, she is only on 2 or 3 L nasal cannula with O2 saturation in the high 90s. Patient is not in distress, continues to have a pigtail catheter in place, draining purulent fluid and sometimes seems to be serosanguineous. Being followed by thoracic surgery, patient had TPA infusion into the lung, and the cultures have been positive for Enterobacter cloaca. Patient is on cefepime, and she seems to be doing fairly well. CBC was not done today but her electrolytes are normal renal profile is normal The patient is seen today 08/10/2021 in follow-up on the regular medical floor. She is currently sitting up in bed. Awake and alert. Earlier this morning she was receiving alteplase per 2 services and started coughing episode. She did cough up moderate amount of blood. She became quite short of breath and had difficulty recovering. She was placed on liters high flow nasal cannula. Chest x-ray was done and revealed a stable right upper lobe opacity with pigtail catheter in place. There is bibasilar atelectasis. Small effusions. Stable compared to previous. Evidence of aortic stent. Sputum culture is revealing evidence of pseudomonas. Pleural fluid cultures were positive for Enterobacter. White count 11.8. Hemoglobin 8.2. Sodium 139. Potassium 4.6. Creatinine 0.3. AST 12. ALT 6. Pro-calcitonin 0.16. She is continued on DuoNeb inhalations, antibiotics in the form of cefepime. Lovenox was placed on hold. Reevaluated today on 08/11/2021, patient was transferred yesterday to the ICU after she developed an episode of hemoptysis. Patient was receiving alteplase through the pigtail catheter to help clear her lung abscess. Patient said that developed an episode of hemoptysis, and we arranged for her to transfer to the ICU. Today the patient is doing much better, hardly any hemoptysis patient is feeling much per her today, breathing a lot easier, chest x-ray even is showing slight improvement in her right upper lobe abscess. Patient remains on antibiotics, and my plan is to monitor the patient over the weekend, she already had a PICC line in place, and hopefully next week we could arrange for the patient to be discharged home on IV antibiotics. Considering the patient is still having minimal hemoptysis, we'll try to monitor over the weekend. CBC showed a WBC count of 8.9 hemoglobin of 7.7, her hemoglobin was 8.2 yesterday. Patient was reevaluated today on 08/12/21, she remains in the ICU, her chest x- ray is showing improvement, clinically the patient is feeling better, however she continues to have intermittent episodes of minimal hemoptysis. Hence I'm a bit reluctant to transfer the patient out of the ICU for now, and I'm a bit reluctant to start her back on anticoagulation therapy. Continues to have some drainage from her a pigtail catheter which is in her right lung, she had about 120 mL overnight. Patient is not in any distress, she is on 3 L nasal cannula. WBC count is 16.3 hemoglobin is 7.3. Electrolytes are normal renal profile is normal. Chest x-ray is showing improvement in her right lung. Objective - Vital Signs Vital signs: Vital Signs Temp 97.6 F 08/12/21 04:00 Pulse 69 08/12/21 12:01 Resp 21 08/12/21 11:00 BP 136/63 08/12/21 11:00 Pulse Ox 97 08/12/21 11:00 Intake & Output 08/11/21 08/12/21 08/12/21 18:59 06:59 18:59 Intake Total 865 825 325 Output Total 530 710 215 Balance 335 115 110 Weight 77 kg Intake: IV 865 825 325 0.9% NaCl with KCl 40 Meq 865 75 /l 1,000 ml @ 83 mls/hr IV .Q12H3M BRE Rx#: [id number] Cefepime 2 gm In Sodium 75 100 Chloride 0.9% 100 ml @ 25 mls/hr IVPB Q8H BRE Rx#: [id number] Sodium Chloride 0.9% 1, 675 225 000 ml @ 75 mls/hr IV . [id number] BRE Rx#:[id number] Output: Chest Tube Drainage 5 30 right posterior chest 5 30 Drainage 10 Right Posterior Chest 10 Urine 515 680 215 Other: Voiding Method Indwelling Catheter Indwelling Catheter Indwelling Catheter - Exam Physical Exam: Revealed 71-year-old female in no distress. On 3 L nasal cannula. Head: Atraumatic, normocephalic. HEENT:[Neck is supple.] [No neck masses.] [No thyromegaly.] [No JVD.] Chest: [Clear throughout, no crackles or rhonchi or wheezes, pigtail catheter remains in the posterior chest area. Cardiac Exam: [Normal S1 and S2, no S3 gallop, no murmur.] Abdomen: [Soft, nontender, no megaly, no rebound, no guarding, normal bowel sounds.] Extremities: [No clubbing, no edema, no cyanosis.] Neurological Exam: [No focal neurologic deficit.] Psychiatric: Normal mood affect and normal mental status examination. Skin: No rashes. - Labs CBC & Chem 7: 08/12/21 04:01 08/12/21 04:01 Labs: Abnormal Lab Results - Last 24 Hours (Table) 08/11/21 08/11/21 08/12/21 Range/Units 16:41 20:48 04:01 WBC 16.3 H (3.8-10.6) k/uL RBC 2.45 L (3.80-5.40) m/uL Hgb 7.3 L (11.4-16.0) gm/dL Hct 24.3 L (34.0-46.0) % MCHC 30.0 L (31.0-37.0) g/dL Neutrophils # 14.6 H (1.3-7.7) k/uL Chloride (98-107) mmol/L BUN (7-17) mg/dL Creatinine (0.52-1.04) mg/dL Glucose (74-99) mg/dL POC Glucose (mg/dL) 145 H 115 H (75-99) mg/dL 08/12/21 08/12/21 Range/Units 04:01 06:56 WBC (3.8-10.6) k/uL RBC (3.80-5.40) m/uL Hgb (11.4-16.0) gm/dL Hct (34.0-46.0) % MCHC (31.0-37.0) g/dL Neutrophils # (1.3-7.7) k/uL Chloride 110 H (98-107) mmol/L BUN 19 H (7-17) mg/dL Creatinine 0.43 L (0.52-1.04) mg/dL Glucose 126 H (74-99) mg/dL POC Glucose (mg/dL) 112 H (75-99) mg/dL Microbiology - Last 24 Hours (Table) 08/09/21 08:13 Gram Stain - Final Sputum Sputum Culture - Final Pseudomonas aeruginosa Stenotrophomonas maltophilia 08/03/21 15:45 Fungal Culture - Preliminary Aspirate Assessment and Plan Assessment: Impression: Right lung abscess secondary to Enterobacter cloacae remains on antibiotics. Hemoptysis secondary to above. history of right lung pneumonia secondary to Pseudomonas History of right sided spontaneous pneumothorax, resolved. History of severe COPD, FEV1 of 49% Paroxysmal atrial fibrillation Underlying coronary artery disease History of endovascular aortic repair Abdominal wall hernia Hypertension History of CVA Recommendation: Continue to monitor in the ICU. At least for the next 24 hours. Continue antibiotics/cefepime. Restart Eliquis 1 hemoptysis resolves. Continue pigtail catheter drainage Consider discharge planning early next week with IV antibiotics, Consider placement in a rehab facility or fdc. Prognosis remains relatively guarded. We will continue to follow. Time with Patient: Less than 30
[2021-08-12 16:45] LABS: Glucose,Whole Blood 145 mg/dL (75-99)
--- NOTE | 2021-08-12 17:29 | P.PN ---
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 Chronic stable medical conditions include coronary artery disease with stent, some mild right-sided weakness from prior stroke, hypertension, hyperlipidemia, obstructive sleep apnea uses CPAP machine, TB in 1985, hiatal hernia, surgery for thoracic aortic aneurysm, sleeve gastrectomy [place] [address] Hamilton. Home oxygen 4 L Patient was in the hospital from June 27 through 07/07/2021. Was admitted with right-sided pneumothorax, A. fib with rapid ventricular rate, acute pulmonary embolism. Was discharged to rehab. Was DO NOT RESUSCITATE. had presented today to Dr. Moreau hours office for event marketing representative visit. Patient's had a congested cough. No fever no chills. Appetite is fair. Does use a walker. Lives with her daughter. X-ray had shown at the office are larger pasty all combining the right lung. With the large mix of fluid in there. Concern for lung abscess. As patient is admitted. She is not expe ctorating any sputum though she has a congested cough. Pigtail catheter was placed in the chest/abscess. Started on IV cefepime, vancomycin. August 04: About 300 mL of vaz take fluid drained today. Decreased appetite. Tired. 4 L nasal cannula. August 05: Laying in bed. Right-sided pigtail catheter draining well. 4 L nasal cannula. Eating somewhat better. Tired. Cough. August 06: Patient is feeling better. Drained 130 mL from the pigtail catheter 24 hours. Breathing better. Oral intake improving. Sitting up and eating lunch. Decreased cough. Cultures positive for Enterobacter cloacae. 3rd dose of alteplase/dornase through pigtail catheter today. August 07: Breathing better. Coughing up some yellow-green sputum. Eating better. No fever no chills. 170 mL output from the pigtail catheter in 24 hours. IV cefepime. Under the dose of alteplase/dornase given today August 08: Put on about 40-50 mL output from the pigtail catheter in the last 24 hours. Oral intake good. Last better and getting to the commode she desaturated. FiO2 which had been dropped to 2 L was increased back to 4 L. Had some air leak today. Some serosanguineous discharge. Appetite is good. Breathing better. Coughing up sputum. August 09: Continues with a cough and some yellow-green sputum. Some bloody output from the chest tube. About 1 50 mL. FiO2 is down to 2 L. Oral intake good. August 10: So the patient this morning. Output through the pigtail about 1 50 mL. On 3 L of nasal cannula. Cough with yellow sputum. Oral intake good. Later this afternoon patient had morealteplase/dornase, given and patient desaturated with some bloody output. moved to the ICU. August 11: ICU. On 4 L of nasal cannula. Eating some. No further hemoptysis. Breathing stable. Discussed with the patient insisted the bedside. Pigtail catheter drainage, 100 mL in last 24 hours August 12: ICU. Small amounts of hemoptysis. Blood-tinged output through the pigtail catheter. On 3 L nasal cannula. Eating better. Productive sputum. Breathing better. Review of systems: Was done for constitutional, cardiovascular, GI, pulmonary. relevant finding as above Active Medications Acetaminophen (Acetaminophen Tab 325 Mg Tab) 650 mg PO Q6HR PRN PRN Reason: Fever and/ or Pain Last Admin: 08/12/21 00:22 Dose: 650 mg Documented by: Albuterol Sulfate (Albuterol Nebulized 2.5 Mg/3 Ml) 2.5 mg INHALATION RT-Q4H PRN PRN Reason: Shortness Of Breath Or Wheezing Last Admin: 08/10/21 03:32 Dose: 2.5 mg Documented by: Albuterol/Ipratropium (Ipratropium-Albuterol 3 Ml Neb) 3 ml INHALATION RT-QID [facility] Last Admin: 08/12/21 15:56 Dose: 3 ml Documented by: Budesonide (Budesonide 1 Mg/2 Ml Nebu) 1 mg INHALATION RT-BID [facility] Last Admin: 08/12/21 08:30 Dose: 1 mg Documented by: Formoterol Fumarate (Formoterol Fumarate 20 Mcg/2 Ml Nebu) 20 mcg INHALATION RT-BID [facility] Last Admin: 08/12/21 08:30 Dose: 20 mcg Documented by: Cefepime HCl 2 gm/ Sodium (Chloride) 100 mls @ 25 mls/hr IVPB Q8H [facility] Last Admin: 08/12/21 09:40 Dose: 25 mls/hr Documented by: Sodium Chloride (Saline 0.9%) 1,000 mls @ 75 mls/hr IV .[id number] [facility] Last Admin: 08/12/21 15:34 Dose: 75 mls/hr Documented by: Methylprednisolone Sodium Succinate (Methylprednisolone Sod Succi 40 Mg/Ml 1 Ml Vial) 40 mg IV Q12HR [facility] Last Admin: 08/12/21 09:35 Dose: 40 mg Documented by: Metoprolol Tartrate (Metoprolol Tartrate 50 Mg Tab) 50 mg PO TID@0800,1400,2000 [facility] Last Admin: 08/12/21 15:33 Dose: 50 mg Documented by: Miscellaneous Information (Pneumonia Protocol Utilized [facility] 1 each PO ONCE PRN PRN Reason: Per Protocol Pantoprazole Sodium (Pantoprazole 40 Mg Tablet) 40 mg PO [id number] [facility] Last Admin: 08/12/21 06:07 Dose: 40 mg Documented by: Sodium Chloride (Sodium Chloride 0.9% Flush 10 Ml Syringe) 10 ml IV Q4HR PRN PRN Reason: PICC Line Sodium Chloride (Sodium Chloride 0.9% Flush 10 Ml Syringe) 10 ml IV WEEKLY [facility] Sodium Chloride (Sodium Chloride 0.9% Flush 10 Ml Syringe) 20 ml IV Q4HR PRN PRN Reason: PICC Line Past medical history to include: Coronary artery disease with stent, COPD, stroke with some mild right-sided weakness, hyperlipidemia, hypertension, obstructive sleep apnea uses CPAP, TB 1985, hiatal hernia, sleeve gastrectomy in 2017, surgery for thoracic aortic aneurysm, 4 L of oxygen at home, atrial fibrillation, pulmonary embolism June 2021 Social history: Started smoking age of 15 stopped in 2011. One pack a day. Alcohol occasionally. Lives with her daughter. Uses walker. Family history: VT, pacemaker, COPD Physical examination: VITAL SIGNS: 98.4, 62, 24, 154-76, 98% on 3 L GENERAL: , Sitting up in bed, more comfortable EYES: Pupils equal. Conjunctiva normal. HEENT: External appearance of nose and ears normal, oral cavity grossly normal. NECK: JVD not raised; masses not palpable. HEART: First and second heart sounds are normal; no edema. LUNGS: Respiratory rate increased; decreased breath sounds. Right-sided chest pigtail catheter ABDOMEN: Soft, nontender, liver spleen not palpable, no masses palpable. PSYCH: Alert and oriented x3; mood and affect tired. MUSCULOSKELETAL:No Clubbing/cyanosis;muscles-grossly intact NEUROLOGICAL: Cranial nerves grossly intact; no facial asymmetry, power and sensation grossly intact. INVESTIGATIONS, reviewed in the clinical context: August 11: White count 16.3 hemoglobin 7.3 platelets 383 potassium 4.6 creatinine 0.43. Chest x-ray abscess appears much reduced Sputum culture: Pseudomonas aeruginosa, stenotrophomonas maltophilia Abscess culture: Enterobacter cloacae August 11 white count 8.9 hemoglobin 7.7 platelets 364 potassium 4.8 creatinine 0.39 August 10: White count 11.8 hemoglobin 8.2 potassium 4.6 creatinine 0.3 pro-calcitonin 0.16. Chest x-ray reported to be unchanged August 07: Potassium 4.2 creatinine 0.47. Chest x-ray fluid level seen. August 06: White count 7.3 hemoglobin 9.9 platelets 29 potassium 3.9 creatinine 0.3 August 05: White count 11.9 hemoglobin 9.9 platelets 267 potassium 3.8 creatinine 0.43 August 04: White count 7.1 hemoglobin 10.4 potassium 4.3 creatinine 0.44 White count 9.6 hemoglobin 14.3 platelets 243 sodium 135 potassium 2.9 creatinine 0.58 CRP 17.9 albumin 2.9 Coronavirus/influenza type A/influenza type B/urine Legionella antigen: Not detected EKG tracing personally reviewed by me-rate [email or web address]. Sinus rhythm. Nonspecific T- wave changes Chest x-ray film personally reviewed by [id number] lung mass with a air- fluid level Computed tomography scan chest with contrast: Large mix fluid and air rounded collection in the right upper lobe cm. Congestion subsegment consolidation. Bronchopulmonary fistula not excluded. See report for more details Assessment and plan: -Large lung abscess right upper lobe measuring 12 cm. lung abscess. August 03: Pigtail catheter - by interventional radiology. Continue with bronchodilators. IV /cefepime. alteplase/dornase through pigtail catheter . Cultures: Enterobacter cloacae -Episode of acute hypoxic on August 10 following installation ofalteplase/dornase . FiO2 increased. Patient moved to the ICU. - hemoptysis following alteplase Improving . -Right-sided pneumonia growing:Pseudomonas aeruginosa, stenotrophomonas maltophilia: Slow to respond IV cefepime, -Paroxysmal atrial fibrillation Currently sinus rhythm Lopressor 12.5 mg 3 times a day -Chronic hypoxic respiratory failure from COPD On home oxygen 4 -Pulmonary embolism June. Currently on Lovenox: Held after hemoptysis -COPD exacerbation in an ex-smoker- on bronchodilators, -Coronary artery disease with stent Lopressor, -Mild right hemiparesis from prior stroke -Hypokalemia: Replace Replace potassium -Essential hypertension, Lopressor 50 mg 3 times a day -Obstructive sleep apnea uses CPAP continue the same -Hiatal hernia -History of sleeve gastrectomy -Chronic medical debility Will need PT OT when chest tube is out IV cefepime, incentive spirometry. Improving slowly Discussed with the patient. Anticoagulation to be resumed when okay with pulmonary [patient still having small amounts of hemoptysis].
[2021-08-12 20:44] LABS: Glucose,Whole Blood 110 mg/dL (75-99)
--- NOTE | 2021-08-12 21:53 | P.PN ---
Subjective Progress Note Date: 08/12/21 Principal diagnosis: Pneumonia and empyema Patient is a 71-year female presented to hospital with shortness of breath and cough this we did have evidence of right-sided pneumonia and empyema status post chest tube placement culture has been positive for Enterobacter. P atient did have worsening shortness of breath and hemoptysis for the patient was transferred to the ICU on 08/10/2021 On today's evaluation there is 08/12/2021 the patient continues to be febrile, the patient is breathing comfortably on 2 L nasal cannula, the patient right- sided chest pain has decreased intensity, the patient cough cough decreased intensity, no further hemoptysis, no vomiting no abdominal pain no diarrhea Objective - Vital Signs Vital signs: Vital Signs Temp 97.7 F 08/12/21 20:00 Pulse 80 08/12/21 21:00 Resp 18 08/12/21 21:00 BP 148/71 08/12/21 21:00 Pulse Ox 96 08/12/21 21:00 Intake & Output 08/12/21 08/12/21 08/13/21 06:59 18:59 06:59 Intake Total 825 1250 150 Output Total 710 505 90 Balance 115 745 60 Weight 77 kg Intake: IV 825 850 150 0.9% NaCl with KCl 40 Meq 75 /l 1,000 ml @ 83 mls/hr IV .Q12H3M BRE Rx#: [id number] Cefepime 2 gm In Sodium 75 100 Chloride 0.9% 100 ml @ 25 mls/hr IVPB Q8H BRE Rx#: [id number] Sodium Chloride 0.9% 1, 675 750 150 000 ml @ 75 mls/hr IV . [id number] BRE Rx#:[id number] Oral 400 Output: Chest Tube Drainage 30 10 right posterior chest 30 10 Urine 680 505 80 Other: Voiding Method Indwelling Catheter Indwelling Catheter Indwelling Catheter - Exam GENERAL DESCRIPTION: Elderly female up in the chair, no distress. No tachypnea or accessory muscle of respiration use. LUNGS: Unlabored breathing. Decreased breath sounds at the base HEART: S1, S2, regular rate and rhythm. No loud murmur ABDOMEN: Soft, no tenderness , guarding or rigidity, no organomegaly EXTREMITIES: No edema of feet. - Labs CBC & Chem 7: 08/12/21 04:01 08/12/21 04:01 Labs: Abnormal Lab Results - Last 24 Hours (Table) 08/12/21 08/12/21 08/12/21 Range/Units 04:01 04:01 06:56 WBC 16.3 H (3.8-10.6) k/uL RBC 2.45 L (3.80-5.40) m/uL Hgb 7.3 L (11.4-16.0) gm/dL Hct 24.3 L (34.0-46.0) % MCHC 30.0 L (31.0-37.0) g/dL Neutrophils # 14.6 H (1.3-7.7) k/uL Chloride 110 H (98-107) mmol/L BUN 19 H (7-17) mg/dL Creatinine 0.43 L (0.52-1.04) mg/dL Glucose 126 H (74-99) mg/dL POC Glucose (mg/dL) 112 H (75-99) mg/dL 08/12/21 08/12/21 Range/Units 16:43 20:43 WBC (3.8-10.6) k/uL RBC (3.80-5.40) m/uL Hgb (11.4-16.0) gm/dL Hct (34.0-46.0) % MCHC (31.0-37.0) g/dL Neutrophils # (1.3-7.7) k/uL Chloride (98-107) mmol/L BUN (7-17) mg/dL Creatinine (0.52-1.04) mg/dL Glucose (74-99) mg/dL POC Glucose (mg/dL) 145 H 110 H (75-99) mg/dL Microbiology - Last 24 Hours (Table) 08/09/21 08:13 Gram Stain - Final Sputum Sputum Culture - Final Pseudomonas aeruginosa Stenotrophomonas maltophilia Assessment and Plan (1) Empyema Current Visit: Yes Status: Acute Code(s): J86.9 - PYOTHORAX WITHOUT FISTULA SNOMED Code(s): 744435966 (2) Pneumonia Current Visit: No Status: Acute Code(s): J18.9 - PNEUMONIA, UNSPECIFIED ORGANISM SNOMED Code(s): 177644434 Plan: 1-Patient with right-sided pneumonia and empyema in this patient is post chest tube placement culture has been positive for Enterobacter, for which the patient is currently covered with cefepime 2 g every 8hr 2-patient's sputum is now showing Pseudomonas and stenotrophomonas that is sensitive to Fortaz and the patient is covered with the cefepime to continue and monitor clinical course closely Time with Patient: Less than 30
[2021-08-13] MEDS: CEFEPIME 2 GM in SODIUM CHLORIDE 0.9% 100 ML IVPB SCH ×3 (04:09→18:54)
[2021-08-13] MEDS: PANTOPRAZOLE 40 MG TABLET PO SCH (06:40)
[2021-08-13] MEDS: SODIUM CHLORIDE 0.9% 1,000 ML IV SCH ×2 (06:40→18:55)
[2021-08-13] MEDS: FORMOTEROL FUMARATE 20 MCG/2 ML NEBU INHALATION SCH ×2 (07:13→20:13)
[2021-08-13] MEDS: BUDESONIDE 1 MG/2 ML NEBU INHALATION SCH ×2 (07:13→20:13)
[2021-08-13] MEDS: IPRATROPIUM-ALBUTEROL 3 ML NEB INHALATION SCH ×4 (07:13→20:13)
[2021-08-13 07:22] LABS: Basophils % (A) 0 %; Eosinophils % (A) 0 %; HCT 24.4 % (34.0-46.0); HGB 7.5 gm/dL (11.4-16.0); Hypochromasia Marked; Lymphocytes # (A) 1.7 k/uL (1.0-4.8); Lymphocytes % (A) 11 %; MCH 30.7 pg (25.0-35.0); MCHC 30.8 g/dL (31.0-37.0); MCV 99.4 fL (80.0-100.0); Macrocytosis Slight; Mean Platelet Volume 7.1; Monocytes # (A) 0.6 k/uL (0-1.0); Monocytes % (A) 4 %; Neutrophils % (A) 84 %; Platelet Count 390 k/uL (150-450); RBC 2.46 m/uL (3.80-5.40); RDW 15.8 % (11.5-15.5); WBC 15.5 k/uL (3.8-10.6)
[2021-08-13 07:37] LABS: African American GFR (CKD) >90 (>60 ml/min/1.73 sqM); Anion Gap 2 mmol/L; Blood Urea Nitrogen 17 mg/dL (7-17); Calcium 9.1 mg/dL (8.4-10.2); Carbon Dioxide 25 mmol/L (22-30); Chloride 109 mmol/L (98-107); Glucose 97 mg/dL (74-99); Non-African American GFR(CKD) >90 (>60 ml/min/1.73 sqM); Potassium 4.2 mmol/L (3.5-5.1); Sodium 136 mmol/L (137-145)
[2021-08-13] MEDS: METOPROLOL TARTRATE 50 MG TAB PO SCH ×3 (08:19→20:36)
[2021-08-13] MEDS: methylPREDNISolone SOD SUCCI 40 MG/ML 1 ML VIAL IV SCH ×2 (08:19→20:36)
--- NOTE | 2021-08-13 08:28 | XR ---
EXAMINATION TYPE: XR chest 1V portable DATE OF EXAM: 08/13/2021 COMPARISON: Chest x-ray 08/12/2021 HISTORY: Chest tube, abnormal chest x-ray TECHNIQUE: Single frontal view of the chest is obtained. FINDINGS: Right-sided pigtail catheter is stable overlying the mid chest, abnormal opacity in the ri ght midlung is again noted. There is no evident pneumothorax or pleural effusion. Prominent lung volu mes suggest underlying COPD. Cardiac mediastinal silhouette shows a stable appearance, aortic stent g raft is in place. There are overlying artifacts. Left-sided PICC line is present, distal tip is cours ing towards the superior vena cava. IMPRESSION: There is no significant interval change. Indwelling chest tube for cavitary lesion right upper lobe shows a similar appearance to prior exam
[2021-08-13 11:20] LABS: Glucose,Whole Blood 102 mg/dL (75-99)
[2021-08-13] MEDS: APIXABAN 2.5 MG TABLET PO SCH ×2 (12:42→20:36)
--- NOTE | 2021-08-13 14:21 | P.PN ---
Subjective Progress Note Date: 08/13/21 Principal diagnosis: Lung abscess On 08/06/2021 patient seen in follow-up on medical surgical floor. He is awake and alert, in no acute distress, sitting up in bed, breathing comfortably currently on 3 L of oxygen with pulse ox of 99%, denies any chest pain, denies any worsening dyspnea or cough, she has a right-sided posterior pigtail chest tube in place which is draining serosanguineous output, and output from it was in the order of 130 mL over last 24 hours. Patient has been receiving intermittent doses of TPA per cardiothoracic surgery. Today's chest x-ray showing no interval change in the appearance of right lung infiltrate pigtail drainage catheter or abscess cavity. CT chest without contrast was completed showing right lower lobe lung abscess cavity with the decrease in the degree of fluid/pus within the cavity compared to the prior study from 08/02/2021. And there was interval development of a small groundglass density in the right lower lobe with small left plural effusion. Clinically patient appears stable, she is breathing comfortably. She remains on cefepime and vancomycin for antibiotic coverage. Her pleural fluid aspirate from her right-sided pigtail chest tube catheter showed Enterobacter cloacae, and there were 2 organisms, and both were sensitive to cefepime Reevaluated today on 08/07/2021, patient is resting in bed, she is only on 2 or 3 L nasal cannula with O2 saturation in the high 90s. Patient is not in distress, continues to have a pigtail catheter in place, draining purulent fluid and sometimes seems to be serosanguineous. Being followed by thoracic surgery, patient had TPA infusion into the lung, and the cultures have been positive for Enterobacter cloaca. Patient is on cefepime, and she seems to be doing fairly well. CBC was not done today but her electrolytes are normal renal profile is normal The patient is seen today 08/10/2021 in follow-up on the regular medical floor. She is currently sitting up in bed. Awake and alert. Earlier this morning she was receiving alteplase per 2 services and started coughing episode. She did cough up moderate amount of blood. She became quite short of breath and had difficulty recovering. She was placed on liters high flow nasal cannula. Chest x-ray was done and revealed a stable right upper lobe opacity with pigtail catheter in place. There is bibasilar atelectasis. Small effusions. Stable compared to previous. Evidence of aortic stent. Sputum culture is revealing evidence of pseudomonas. Pleural fluid cultures were positive for Enterobacter. White count 11.8. Hemoglobin 8.2. Sodium 139. Potassium 4.6. Creatinine 0.3. AST 12. ALT 6. Pro-calcitonin 0.16. She is continued on DuoNeb inhalations, antibiotics in the form of cefepime. Lovenox was placed on hold. Reevaluated today on 08/11/2021, patient was transferred yesterday to the ICU after she developed an episode of hemoptysis. Patient was receiving alteplase through the pigtail catheter to help clear her lung abscess. Patient said that developed an episode of hemoptysis, and we arranged for her to transfer to the ICU. Today the patient is doing much better, hardly any hemoptysis patient is feeling much per her today, breathing a lot easier, chest x-ray even is showing slight improvement in her right upper lobe abscess. Patient remains on antibiotics, and my plan is to monitor the patient over the weekend, she already had a PICC line in place, and hopefully next week we could arrange for the patient to be discharged home on IV antibiotics. Considering the patient is still having minimal hemoptysis, we'll try to monitor over the weekend. CBC showed a WBC count of 8.9 hemoglobin of 7.7, her hemoglobin was 8.2 yesterday. Patient was reevaluated today on 08/12/21, she remains in the ICU, her chest x- ray is showing improvement, clinically the patient is feeling better, however she continues to have intermittent episodes of minimal hemoptysis. Hence I'm a bit reluctant to transfer the patient out of the ICU for now, and I'm a bit reluctant to start her back on anticoagulation therapy. Continues to have some drainage from her a pigtail catheter which is in her right lung, she had about 120 mL overnight. Patient is not in any distress, she is on 3 L nasal cannula. WBC count is 16.3 hemoglobin is 7.3. Electrolytes are normal renal profile is normal. Chest x-ray is showing improvement in her right lung. Reevaluated today on 08/13/21, patient remains in the ICU, she has not had any hemoptysis over the last 24 hours. Chest x-ray continues to show the same changes in the right upper lobe, not much change coordinator the last 48 hours, but improved compared to her chest x-ray a few days ago. Patient remains on antibiotics, continues to have a pigtail catheter in place, drainage is becoming less and less. Clinically the patient is doing better, she is on 4 L nasal cannula which is her usual O2 dose. I have a feeling that the patient could possibly be transferred out of the ICU in the next 24 hours, and she may need placement with IV antibiotics on outpatient basis as recommended by infectious disease. She already has a PICC line in place. Objective - Vital Signs Vital signs: Vital Signs Temp 97.3 F L 08/13/21 12:00 Pulse 64 08/13/21 14:00 Resp 22 08/13/21 14:00 BP 153/70 08/13/21 14:00 Pulse Ox 96 08/13/21 12:00 Intake & Output 08/12/21 08/13/21 08/13/21 18:59 06:59 18:59 Intake Total 1250 900 600 Output Total 505 835 560 Balance 745 65 40 Weight 77.4 kg Intake: IV 850 900 600 Cefepime 2 gm In Sodium 100 Chloride 0.9% 100 ml @ 25 mls/hr IVPB Q8H [facility] Rx#: [id number] Sodium Chloride 0.9% 1, 750 900 600 000 ml @ 75 mls/hr IV . [id number] [facility] Rx#:[id number] Oral 400 Output: Chest Tube Drainage 20 right posterior chest 20 Urine 505 815 560 Other: Voiding Method Indwelling Catheter Indwelling Catheter Indwelling Catheter - Exam Physical Exam: Revealed 71-year-old female in no distress. On 4 L nasal cannula. Head: Atraumatic, normocephalic. HEENT:[Neck is supple.] [No neck masses.] [No thyromegaly.] [No JVD.] Chest: [Clear throughout, no crackles or rhonchi or wheezes, pigtail catheter remains in the posterior chest area. Minimal drainage over the last 24 hours. Cardiac Exam: [Normal S1 and S2, no S3 gallop, no murmur.] Abdomen: [Soft, nontender, no megaly, no rebound, no guarding, normal bowel sounds.] Extremities: [No clubbing, no edema, no cyanosis.] Neurological Exam: [No focal neurologic deficit.] Psychiatric: Normal mood affect and normal mental status examination. Skin: No rashes. - Labs CBC & Chem 7: 08/13/21 07:02 08/13/21 07:02 Labs: Abnormal Lab Results - Last 24 Hours (Table) 08/12/21 08/12/21 08/13/21 Range/Units 16:43 20:43 07:02 WBC 15.5 H (3.8-10.6) k/uL RBC 2.46 L (3.80-5.40) m/uL Hgb 7.5 L (11.4-16.0) gm/dL Hct 24.4 L (34.0-46.0) % MCHC 30.8 L (31.0-37.0) g/dL RDW 15.8 H (11.5-15.5) % Neutrophils # 13.0 H (1.3-7.7) k/uL Sodium (137-145) mmol/L Chloride (98-107) mmol/L POC Glucose (mg/dL) 145 H 110 H (75-99) mg/dL 08/13/21 08/13/21 Range/Units 07:02 11:18 WBC (3.8-10.6) k/uL RBC (3.80-5.40) m/uL Hgb (11.4-16.0) gm/dL Hct (34.0-46.0) % MCHC (31.0-37.0) g/dL RDW (11.5-15.5) % Neutrophils # (1.3-7.7) k/uL Sodium 136 L (137-145) mmol/L Chloride 109 H (98-107) mmol/L POC Glucose (mg/dL) 102 H (75-99) mg/dL Microbiology - Last 24 Hours (Table) 08/09/21 08:13 Gram Stain - Final Sputum Sputum Culture - Final Pseudomonas aeruginosa Stenotrophomonas maltophilia Assessment and Plan Assessment: Impression: Right lung abscess secondary to Enterobacter cloacae remains on antibiotics. Hemoptysis secondary to above. history of right lung pneumonia secondary to Pseudomonas History of right sided spontaneous pneumothorax, resolved. History of severe COPD, FEV1 of 49% Paroxysmal atrial fibrillation Underlying coronary artery disease History of endovascular aortic repair Abdominal wall hernia Hypertension History of CVA Recommendation: Continue to monitor in the ICU. Continue antibiotics/cefepime. Restart Eliquis 2.5 mg twice a day as the patient had previous history of pulmonary embolism. Continue pigtail catheter drainage Consider discharge planning , possibly to a rehab facility with IV antibiotics via PICC line. Consider placement in a rehab facility or penitentiary. Prognosis remains relatively guarded. We will continue to follow. Time with Patient: Less than 30
--- NOTE | 2021-08-13 15:16 | P.PN ---
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 Chronic stable medical conditions include coronary artery disease with stent, some mild right-sided weakness from prior stroke, hypertension, hyperlipidemia, obstructive sleep apnea uses CPAP machine, TB in 1985, hiatal hernia, surgery for thoracic aortic aneurysm, sleeve gastrectomy [place] [address] Hamilton. Home oxygen 4 L Patient was in the hospital from June 27 through 07/07/2021. Was admitted with right-sided pneumothorax, A. fib with rapid ventricular rate, acute pulmonary embolism. Was discharged to rehab. Was DO NOT RESUSCITATE. had presented today to Dr. Moreau hours office for seo strategist visit. Patient's had a congested cough. No fever no chills. Appetite is fair. Does use a walker. Lives with her daughter. X-ray had shown at the office are larger pasty all combining the right lung. With the large mix of fluid in there. Concern for lung abscess. As patient is admitted. She is not expe ctorating any sputum though she has a congested cough. Pigtail catheter was placed in the chest/abscess. Started on IV cefepime, vancomycin. August 04: About 300 mL of vaz take fluid drained today. Decreased appetite. Tired. 4 L nasal cannula. August 05: Laying in bed. Right-sided pigtail catheter draining well. 4 L nasal cannula. Eating somewhat better. Tired. Cough. August 06: Patient is feeling better. Drained 130 mL from the pigtail catheter 24 hours. Breathing better. Oral intake improving. Sitting up and eating lunch. Decreased cough. Cultures positive for Enterobacter cloacae. 3rd dose of alteplase/dornase through pigtail catheter today. August 07: Breathing better. Coughing up some yellow-green sputum. Eating better. No fever no chills. 170 mL output from the pigtail catheter in 24 hours. IV cefepime. Under the dose of alteplase/dornase given today August 08: Put on about 40-50 mL output from the pigtail catheter in the last 24 hours. Oral intake good. Last better and getting to the commode she desaturated. FiO2 which had been dropped to 2 L was increased back to 4 L. Had some air leak today. Some serosanguineous discharge. Appetite is good. Breathing better. Coughing up sputum. August 09: Continues with a cough and some yellow-green sputum. Some bloody output from the chest tube. About 1 50 mL. FiO2 is down to 2 L. Oral intake good. August 10: So the patient this morning. Output through the pigtail about 1 50 mL. On 3 L of nasal cannula. Cough with yellow sputum. Oral intake good. Later this afternoon patient had morealteplase/dornase, given and patient desaturated with some bloody output. moved to the ICU. August 11: ICU. On 4 L of nasal cannula. Eating some. No further hemoptysis. Breathing stable. Discussed with the patient insisted the bedside. Pigtail catheter drainage, 100 mL in last 24 hours August 12: ICU. Small amounts of hemoptysis. Blood-tinged output through the pigtail catheter. On 3 L nasal cannula. Eating better. Productive sputum. Breathing better. August 13: ICU. No further sputum production. Less than 50 mL of drainage last 24 hours. Breathing stable. Oral intake good. Eliquis resumed by pulmonary. Review of systems: Was done for constitutional, cardiovascular, GI, pulmonary. relevant finding as above Active Medications Acetaminophen (Acetaminophen Tab 325 Mg Tab) 650 mg PO Q6HR PRN PRN Reason: Fever and/ or Pain Last Admin: 08/12/21 00:22 Dose: 650 mg Documented by: Albuterol Sulfate (Albuterol Nebulized 2.5 Mg/3 Ml) 2.5 mg INHALATION RT-Q4H PRN PRN Reason: Shortness Of Breath Or Wheezing Last Admin: 08/10/21 03:32 Dose: 2.5 mg Documented by: Albuterol/Ipratropium (Ipratropium-Albuterol 3 Ml Neb) 3 ml INHALATION RT-QID [facility] Last Admin: 08/13/21 15:03 Dose: 3 ml Documented by: Apixaban (Apixaban 2.5 Mg Tablet) 2.5 mg PO BID [facility]; Protocol Last Admin: 08/13/21 12:42 Dose: 2.5 mg Documented by: Budesonide (Budesonide 1 Mg/2 Ml Nebu) 1 mg INHALATION RT-BID [facility] Last Admin: 08/13/21 07:13 Dose: 1 mg Documented by: Formoterol Fumarate (Formoterol Fumarate 20 Mcg/2 Ml Nebu) 20 mcg INHALATION RT-BID [facility] Last Admin: 08/13/21 07:13 Dose: 20 mcg Documented by: Cefepime HCl 2 gm/ Sodium (Chloride) 100 mls @ 25 mls/hr IVPB Q8H [facility] Last Admin: 08/13/21 11:43 Dose: 25 mls/hr Documented by: Sodium Chloride (Saline 0.9%) 1,000 mls @ 75 mls/hr IV .[id number] [facility] Last Admin: 08/13/21 06:40 Dose: 75 mls/hr Documented by: Ferric Sodium Gluconate 125 mg (/ Sodium Chloride) 110 mls @ 100 mls/hr IVPB DAILY [facility] Stop: 08/14/21 10:05 Methylprednisolone Sodium Succinate (Methylprednisolone Sod Succi 40 Mg/Ml 1 Ml Vial) 40 mg IV Q12HR [facility] Last Admin: 08/13/21 08:19 Dose: 40 mg Documented by: Metoprolol Tartrate (Metoprolol Tartrate 50 Mg Tab) 50 mg PO TID@0800,1400,2000 [facility] Last Admin: 08/13/21 08:19 Dose: 50 mg Documented by: Miscellaneous Information (Pneumonia [facility] 1 each PO ONCE PRN PRN Reason: Per Protocol Pantoprazole Sodium (Pantoprazole 40 Mg Tablet) 40 mg PO [id number]-[id number] [facility] Last Admin: 08/13/21 06:40 Dose: 40 mg Documented by: Sodium Chloride (Sodium Chloride 0.9% Flush 10 Ml Syringe) 10 ml IV Q4HR PRN PRN Reason: PICC Line Sodium Chloride (Sodium Chloride 0.9% Flush 10 Ml Syringe) 10 ml IV WEEKLY [facility] Sodium Chloride (Sodium Chloride 0.9% Flush 10 Ml Syringe) 20 ml IV Q4HR PRN PRN Reason: PICC Line Past medical history to include: Coronary artery disease with stent, COPD, stroke with some mild right-sided weakness, hyperlipidemia, hypertension, obstructive sleep apnea uses CPAP, TB 1985, hiatal hernia, sleeve gastrectomy in 2017, surgery for thoracic aortic aneurysm, 4 L of oxygen at home, atrial fibrillation, pulmonary embolism June 2021 Social history: Started smoking age of 15 stopped in 2011. One pack a day. Alcohol occasionally. Lives with her daughter. Uses walker. Family history: [place], pacemaker, COPD Physical examination: VITAL SIGNS: 97.3, 73, 23, 136/71, 96% on 4 L GENERAL: , Sitting up in bed, comfortable EYES: Pupils equal. Conjunctiva normal. HEENT: External appearance of nose and ears normal, oral cavity grossly normal. NECK: JVD not raised; masses not palpable. HEART: First and second heart sounds are normal; no edema. LUNGS: Respiratory rate increased; decreased breath sounds. Right-sided chest pigtail catheter ABDOMEN: Soft, nontender, liver spleen not palpable, no masses palpable. PSYCH: Alert and oriented x3; mood and affect tired. MUSCULOSKELETAL:No Clubbing/cyanosis;muscles-grossly intact NEUROLOGICAL: Cranial nerves grossly intact; no facial asymmetry, power and sensation grossly intact. INVESTIGATIONS, reviewed in the clinical context: August 15: White count 15.5 hemoglobin 7.5 potassium 4.2 creatinine 0.53 August 11: White count 16.3 hemoglobin 7.3 platelets 383 potassium 4.6 creatinine 0.43. Chest x-ray abscess appears much reduced Sputum culture: Pseudomonas aeruginosa, stenotrophomonas maltophilia Abscess culture: Enterobacter cloacae August 11 white count 8.9 hemoglobin 7.7 platelets 364 potassium 4.8 creatinine 0.39 August 10: White count 11.8 hemoglobin 8.2 potassium 4.6 creatinine 0.3 pro- calcitonin 0.16. Chest x-ray reported to be unchanged August 07: Potassium 4.2 creatinine 0.47. Chest x-ray fluid level seen. August 06: White count 7.3 hemoglobin 9.9 platelets 29 potassium 3.9 creatinine 0.3 August 05: White count 11.9 hemoglobin 9.9 platelets 267 potassium 3.8 creatinine 0.43 August 04: White count 7.1 hemoglobin 10.4 potassium 4.3 creatinine 0.44 White count 9.6 hemoglobin 14.3 platelets 243 sodium 135 potassium 2.9 creatinine 0.58 CRP 17.9 albumin 2.9 Coronavirus/influenza type A/influenza type B/urine Legionella antigen: Not detected EKG tracing personally reviewed by me-rate [email or web address]. Sinus rhythm. Nonspecific T- wave changes Chest x-ray film personally reviewed by [id number] lung mass with a air- fluid level Computed tomography scan chest with contrast: Large mix fluid and air rounded collection in the right upper lobe dense/11/12 cm. Congestion subsegment consolidation. Bronchopulmonary fistula not excluded. See report for more details Assessment and plan: -Large lung abscess right upper lobe measuring 05/01/12 cm. lung abscess. August 03: Pigtail catheter - by interventional radiology. Continue with bronchodilators. IV /cefepime. alteplase/dornase through pigtail catheter . Cultures: Enterobacter cloacae -Episode of acute hypoxic on August 10 following installation ofalteplase/d ornase . FiO2 increased. Patient moved to the ICU. - hemoptysis following alteplase Improving . -Right-sided pneumonia growing:Pseudomonas aeruginosa, stenotrophomonas maltophilia: Slow to respond IV cefepime, -Paroxysmal atrial fibrillation Currently sinus rhythm Lopressor 12.5 mg 3 times a day -Chronic hypoxic respiratory failure from COPD On home oxygen 4 -Pulmonary embolism June. Currently on Lovenox: Held after hemoptysis -Acute normocytic neck no anemia secondary to blood loss from hemoptysis and some bloody drainage through the pigtail catheter. Hemodynamically stable IV Ferrlecit. -COPD exacerbation in an ex-smoker- on bronchodilators, -Coronary artery disease with stent Lopressor, -Mild right hemiparesis from prior stroke -Hypokalemia: Replace Replace potassium -Essential hypertension, Lopressor 50 mg 3 times a day -Obstructive sleep apnea uses CPAP continue the same -Hiatal hernia -History of sleeve gastrectomy -Chronic medical debility Will need PT OT when chest tube is out IV cefepime, incentive spirometry. Eliquis resumed by pulmonary. IV Ferrlecit. Patient is doing better.
[2021-08-13] MEDS: SODIUM FERRIC GLUCONAT-SUCROSE 125 MG in SODIUM CHLORIDE 0.9% 100 ML IVPB SCH (16:05)
--- NOTE | 2021-08-13 16:40 | P.PN ---
Subjective Progress Note Date: 08/13/21 Principal diagnosis: Pneumonia and empyema Patient is a 71-year female presented to hospital with shortness of breath and cough this we did have evidence of right-sided pneumonia and empyema status post chest tube placement culture has been positive for Enterobacter. P atient did have worsening shortness of breath and hemoptysis for the patient was transferred to the ICU on 08/10/2021 On today's evaluation there is 08/13/2021 the patient remains to be febrile, the patient is breathing comfortably on 4 L nasal cannula, the patient right-sided chest pain is controlled with the current pain medication, the patient cough cough decreased intensity, no further hemoptysis, no vomiting no abdominal pain no diarrhea Objective - Vital Signs Vital signs: Vital Signs Temp 97.3 F L 08/13/21 12:00 Pulse 62 08/13/21 15:16 Resp 15 08/13/21 15:00 BP 153/70 08/13/21 15:00 Pulse Ox 98 08/13/21 15:00 Intake & Output 08/12/21 08/13/21 08/13/21 18:59 06:59 18:59 Intake Total 1250 900 675 Output Total 505 835 620 Balance 745 65 55 Weight 77.4 kg Intake: IV 850 900 675 Cefepime 2 gm In Sodium 100 Chloride 0.9% 100 ml @ 25 mls/hr IVPB Q8H [facility] Rx#: [id number] Sodium Chloride 0.9% 1, 750 900 675 000 ml @ 75 mls/hr IV . [id number] [facility] Rx#:[id number] Oral 400 Output: Chest Tube Drainage 20 right posterior chest 20 Urine 505 815 620 Other: Voiding Method Indwelling Catheter Indwelling Catheter Indwelling Catheter - Exam GENERAL DESCRIPTION: Elderly female up in the chair, no distress. No tachypnea or accessory muscle of respiration use. LUNGS: Unlabored breathing. Decreased breath sounds at the base HEART: S1, S2, regular rate and rhythm. No loud murmur ABDOMEN: Soft, no tenderness , guarding or rigidity, no organomegaly EXTREMITIES: No edema of feet. - Labs CBC & Chem 7: 08/13/21 07:02 08/13/21 07:02 Labs: Abnormal Lab Results - Last 24 Hours (Table) 08/12/21 08/12/21 08/13/21 Range/Units 16:43 20:43 07:02 WBC 15.5 H (3.8-10.6) k/uL RBC 2.46 L (3.80-5.40) m/uL Hgb 7.5 L (11.4-16.0) gm/dL Hct 24.4 L (34.0-46.0) % MCHC 30.8 L (31.0-37.0) g/dL RDW 15.8 H (11.5-15.5) % Neutrophils # 13.0 H (1.3-7.7) k/uL Sodium (137-145) mmol/L Chloride (98-107) mmol/L POC Glucose (mg/dL) 145 H 110 H (75-99) mg/dL 08/13/21 08/13/21 Range/Units 07:02 11:18 WBC (3.8-10.6) k/uL RBC (3.80-5.40) m/uL Hgb (11.4-16.0) gm/dL Hct (34.0-46.0) % MCHC (31.0-37.0) g/dL RDW (11.5-15.5) % Neutrophils # (1.3-7.7) k/uL Sodium 136 L (137-145) mmol/L Chloride 109 H (98-107) mmol/L POC Glucose (mg/dL) 102 H (75-99) mg/dL Assessment and Plan (1) Empyema Current Visit: Yes Status: Acute Code(s): J86.9 - PYOTHORAX WITHOUT FISTULA SNOMED Code(s): 970493397 (2) Pneumonia Current Visit: No Status: Acute Code(s): J18.9 - PNEUMONIA, UNSPECIFIED ORGANISM SNOMED Code(s): 877173245 Plan: 1-Patient with right-sided pneumonia and empyema in this patient is post chest tube placement culture has been positive for Enterobacter, for which the patient is currently covered with cefepime 2 g every 8hr 2-patient's sputum is now showing Pseudomonas and stenotrophomonas that is sensitive to Fortaz and should be covered with a cefepime the patient is cu rrently on white count is trending down and continue supportive care Time with Patient: Less than 30
[2021-08-13 17:59] LABS: Glucose,Whole Blood 133 mg/dL (75-99)
[2021-08-13 20:07] LABS: Glucose,Whole Blood 143 mg/dL (75-99)
[2021-08-13] MEDS: ACETAMINOPHEN TAB 325 MG TAB PO PRN (22:20)
[2021-08-14] MEDS: CEFEPIME 2 GM in SODIUM CHLORIDE 0.9% 100 ML IVPB SCH ×3 (03:25→19:36)
[2021-08-14 06:39] LABS: Glucose,Whole Blood 102 mg/dL (75-99)
[2021-08-14] MEDS: PANTOPRAZOLE 40 MG TABLET PO SCH (07:02)
[2021-08-14] MEDS: METOPROLOL TARTRATE 50 MG TAB PO SCH ×3 (08:29→21:18)
[2021-08-14] MEDS: APIXABAN 2.5 MG TABLET PO SCH ×2 (08:29→21:19)
[2021-08-14] MEDS: methylPREDNISolone SOD SUCCI 40 MG/ML 1 ML VIAL IV SCH ×2 (08:29→21:19)
[2021-08-14] MEDS: SODIUM CHLORIDE 0.9% 1,000 ML IV SCH (08:34)
[2021-08-14] MEDS: IPRATROPIUM-ALBUTEROL 3 ML NEB INHALATION SCH ×4 (08:48→19:05)
[2021-08-14] MEDS: FORMOTEROL FUMARATE 20 MCG/2 ML NEBU INHALATION SCH ×2 (08:48→19:05)
[2021-08-14] MEDS: BUDESONIDE 1 MG/2 ML NEBU INHALATION SCH ×2 (08:48→19:05)
[2021-08-14 09:09] LABS: Anisocytosis Slight; HCT 27.7 % (34.0-46.0); HGB 8.3 gm/dL (11.4-16.0); Hypochromasia Marked; MCH 30.6 pg (25.0-35.0); MCHC 30.1 g/dL (31.0-37.0); MCV 101.7 fL (80.0-100.0); Macrocytosis Slight; Platelet Count 458 k/uL (150-450); RBC 2.73 m/uL (3.80-5.40); RDW 16.8 % (11.5-15.5)
[2021-08-14] MEDS: SODIUM FERRIC GLUCONAT-SUCROSE 125 MG in SODIUM CHLORIDE 0.9% 100 ML IVPB SCH (10:00)
--- NOTE | 2021-08-14 11:30 | P.PN ---
Subjective Progress Note Date: 08/14/21 Principal diagnosis: Shortness of breath This is a 71-year-old female patient who was recently hospitalized for an extensive right lung pneumonia. The patient was seen in our office yesterday the patient was found to have a large opacity involving the right lung. Based on that, the patient was referred for a computed tomography scan of the chest and the patient was found to have a 10 x 11 x 12 cm large mix fluid and air rounded collection in the right upper lobe very much consistent with a lung abscess. There was also adjacent consolidation. At the same time, the patient has postsurgical changes involving the thoracic aorta with endovascular stent. Based on this, the patient was admitted to the hospital. Patient is currently on 4 L about 2 by nasal cannula. She has a congested cough. No significant fever. No significant sputum production. The blood work is showing a white cell count 9.6 with hemoglobin 14.3 and a platelet count of 243. Creatinine is at 14 with a creatinine of 0.5 and a sodium level of 135. We think that this was a gram-negative pneumonia knowing that the patient's previous NV that occurred back in June 2021 showed a possible culture with pseudomonas aeruginosa. At the time of discharge she was given antibiotics the patient was given a prednisone burst taper. She was not given antibiotics based on my review of the records. At the same time, the patient was given anticoagulation for a pulmonary embolism in the right middle/right lower lobe pulmonary artery secondary branches. She also has history approximately atrial fibrillation and current cardiac rhythm is sinus. She has chronic hypoxic respiratory failure maintained on oxygen at 4 L per minute nasal cannula. She has advanced COPD and she has an FEV1 of 49% of predicted. She is currently admitted to the hospital for further The patient is seen today in 08/04/2021 in follow-up on the regular medical floor. She is currently resting comfortably in bed. Awake and alert in no acute distress. Maintaining O2 saturations in the mid 90s on 4 L/m per nasal ca nnula. Afebrile. Hemodynamically stable. This morning she had undergone a CT- guided right-sided chest tube insertion for suspected pulmonary as abscess. She had a pigtail catheter placed by interventional radiology. 300 mL of purulent thick drainage was returned. Follow-up chest x-ray reveals slightly diminished size of the right lung abscess. Catheters within the region. She had been seen by CT services and alteplase injection will be performed as well. Cultures pending. White count 7.1. Hemoglobin 10.4. Sodium 141. Potassium 4.3. Creatinine 0.44. She's been initiated on vancomycin, cefepime and azithromycin. Continued on bronchodilators. We'll add incentive spirometer. The patient is seen today 08/05/2021 follow-up on the regular medical floor. She is awake and alert in no acute distress. Breathing easier today compared to yesterday. Maintaining O2 saturations in the low 90s on room air. She's been afebrile. Hemodynamically stable. Chest x-ray continues to show significant interval reduction in the right lung abscess which contains the pigtail drainage catheter. Preliminary pleural fluid cultures are positive for gram-negative bacilli. Blood cultures reveal no growth. White count 11.9. Hemoglobin 9.9. Platelets 267. Sodium 137. Potassium 3.8. Creatinine 0.43. Glucose 85. Vancomycin trough 13.7. She remains on vancomycin and cefepime. On 08/06/2021 patient seen in follow-up on medical surgical floor. He is awake and alert, in no acute distress, sitting up in bed, breathing comfortably currently on 3 L of oxygen with pulse ox of 99%, denies any chest pain, denies any worsening dyspnea or cough, she has a right-sided posterior pigtail chest tube in place which is draining serosanguineous output, and output from it was in the order of 130 mL over last 24 hours. Patient has been receiving intermittent doses of TPA per cardiothoracic surgery. Today's chest x-ray showing no interval change in the appearance of right lung infiltrate pigtail drainage catheter or abscess cavity. CT chest without contrast was completed showing right lower lobe lung abscess cavity with the decrease in the degree of fluid/pus within the cavity compared to the prior study from 08/02/2021. And there was interval development of a small groundglass density in the right lower lobe with small left plural effusion. Clinically patient appears stable, she is breathing comfortably. She remains on cefepime and vancomycin for antibiotic coverage. Her pleural fluid aspirate from her right-sided pigtail chest tube catheter showed Enterobacter cloacae, and there were 2 organisms, and both were sensitive to cefepime On 08/09/2021 patient seen in follow-up on medical surgical floor, she is resting comfortably in bed, breathing comfortably, she is currently on 2 L of oxygen her pulse ox is 9200% compliant of signs have been stable, she has been afebrile overnight, she denies any chest discomfort, occasional cough, no significant phlegm production, her IV fluids are infusing at a rate of 40 ML per hour, she still has a left-sided chest tube in place, she received dornase effusion in the chest tube yesterday and the day before per CT surgery, chest tube output is 150 mL of serosanguineous output, and the pleural fluid seems to be a bit more bloody on today's exam with some clots. CT surgery is following, managing the chest tube, clinically patient has remained stable, no fever or chills, vital signs have been stable, today's chest x-ray has been reviewed Showing stable right lung abscess. She continues on cefepime for antibiotic coverage, her pleural fluid cultures showed Enterobacter cloacae, 2 different organisms. No new labs today. On 08/14/2021 patient seen in follow-up in the intensive care unit, she is awake and alert, in no acute distress, she is currently on 4 L of oxygen her pulse ox is 96%, she's been afebrile, hemodynamically patient is stable, she is on point tenderness and infusing at a rate of 75 ML per hour, no other drips. No vasopressor support. Hemodynamically she has remained stable, she's had no acute events overnight, no worsening dyspnea or cough, no episodes of recurrent hemoptysis. Her right-sided pig tail chest tube remains in place and there has been only 10 mL of serosanguineous output in the last 24 hours, but output out of the chest tube has been quite diminished in the last 3 days. Patient has not received any alteplase or dornase since 08/10/2021. no cpomplaints of chest discomfort, her last chest x-ray from yesterday was showing no significant interval change, indwelling right-sided pigtail catheter was in stable condition in the mid chest with opacity in the right midlung with similar appearance compared to the prior exam. Clinically patient has remained stable, without w orsening dyspnea cough, or hemoptysis. She has had no fever or chills, hemodynamically she has remained stable, her Eliquis was restarted yesterday, with no evidence of bleeding. Today's blood work is pending. Patient continues on cefepime for antibiotic coverage for evidence of Stenotrophomonas maltophilia Pseudomonas aeruginosa in the sputum culture, and pleural fluid culture positive for Enterobacter cloacae. Objective - Vital Signs Vital signs: Vital Signs Temp 98.5 F 08/14/21 08:27 Pulse 52 L 08/14/21 10:34 Resp 14 08/14/21 08:27 BP 136/60 08/14/21 08:27 Pulse Ox 96 08/14/21 08:27 Intake & Output 08/13/21 08/14/21 08/14/21 18:59 06:59 18:59 Intake Total 1100 820 75 Output Total 915 910 85 Balance 185 -90 -10 Weight 78 kg Intake: IV 1000 700 75 Cefepime 2 gm In Sodium 100 100 Chloride 0.9% 100 ml @ 25 mls/hr IVPB Q8H BRE Rx#: [id number] Sodium Chloride 0.9% 1, 900 600 75 000 ml @ 75 mls/hr IV . [id number] Rx#:[id number] Intake, IV Titration 100 Amount Sodium Ferric Gluconat- 100 Sucrose 125 mg In Sodium Chloride 0.9% 100 ml @ 100 mls/hr IVPB DAILY BRE Rx#:[id number] Oral 120 Output: Chest Tube Drainage 0 10 right posterior chest 0 10 Urine 915 910 75 Other: Voiding Method Indwelling Catheter Indwelling Catheter Bedside Commode - Exam GENERAL EXAM: Alert, very pleasant, 71-year-old white female, clear on 4 L of oxygen, with a pulse ox of 96% comfortable in no apparent distress. HEAD: Normocephalic/atraumatic. EYES: Normal reaction of pupils, equal size. Conjunctiva pink, sclera white. NOSE: Clear with pink turbinates. THROAT: No erythema or exudates. NECK: No masses, no JVD, no thyroid enlargement, no adenopathy. CHEST: No chest wall deformity. Symmetrical expansion. Right posterior chest pigtail catheter in place, connected to a Pleur-evac, minimal serosanguineous ou tput, no evidence of air leak LUNGS: Equal air entry with no crackles, wheeze, rhonchi or dullness. CVS: Regular rate and rhythm, normal S1 and S2, no gallops, no murmurs, no rubs ABDOMEN: Soft, nontender. No hepatosplenomegaly, normal bowel sounds, no guarding or rigidity. EXTREMITIES: No clubbing, no edema, no cyanosis, 2+ pulses and upper and lower extremities. MUSCULOSKELETAL: Muscle strength and tone normal. SPINE: No scoliosis or deformity SKIN: No rashes CENTRAL NERVOUS SYSTEM: Alert and oriented -3. No focal deficits, tone is normal in all 4 extremities. PSYCHIATRIC: Alert and oriented -3. Appropriate affect. Intact judgment and insight. - Labs CBC & Chem 7: 08/14/21 08:40 08/13/21 07:02 Labs: Abnormal Lab Results - Last 24 Hours (Table) 08/13/21 08/13/21 08/13/21 Range/Units 11:18 17:56 20:06 WBC (3.8-10.6) k/uL RBC (3.80-5.40) m/uL Hgb (11.4-16.0) gm/dL Hct (34.0-46.0) % MCV (80.0-100.0) fL MCHC (31.0-37.0) g/dL RDW (11.5-15.5) % Plt Count (150-450) k/uL POC Glucose (mg/dL) 102 H 133 H 143 H (75-99) mg/dL 08/14/21 08/14/21 Range/Units 06:37 08:40 WBC 18.3 H (3.8-10.6) k/uL RBC 2.73 L (3.80-5.40) m/uL Hgb 8.3 L (11.4-16.0) gm/dL Hct 27.7 L (34.0-46.0) % MCV 101.7 H (80.0-100.0) fL MCHC 30.1 L (31.0-37.0) g/dL RDW 16.8 H (11.5-15.5) % Plt Count 458 H (150-450) k/uL POC Glucose (mg/dL) 102 H (75-99) mg/dL Microbiology - Last 24 Hours (Table) 08/03/21 15:45 Acid Fast Bacilli Smear - Final Aspirate Acid Fast Bacilli Culture - Preliminary Assessment and Plan Plan: #1. Right lung abscess. The patient has a complex 10 x 11 x 12 cm fluid-filled cavity in the right upper lobe consistent with a lung abscess that followed an extensive gram-negative right lung pneumonia. The patient was Hospital as back in June 2021 and at that time the patient had Pseudomonas bacteremia secondary to pneumonia. The patient is currently on vancomycin, cefepime. She did receive a pigtail catheter placement 08/04/2021 in interventional radiology with approximately 300 ML's of purulent fluid returned. She also received alteplase and dornase per CT services. Pleural fluid cultures were positive for Enterobacter cloacae, 2 different organisms, patient currently remains on cefepime, vancomycin has been discontinued. Sputum culture was positive for pseudomonas aeruginosa, and stenotrophomonas maltophilia #2. History of an extensive right lung pneumonia with secondary pseudomonas aeruginosa septicemia hospitalized back in June 2021. The blood culture was positive on 07/03/2021 #3. History of pulmonary embolism diagnosed during her most recent hospitalization and the patient was found to have clotting in the right lower lobe pulmonary artery branches and the patient was given Eliquis. #4. Severe COPD with an FEV1 of 49% of predicted at baseline #5. Acute spontaneous right-sided pneumothorax, status post smallbore chest tube placement and subsequent removal, follow-up chest x-ray shows no evidence of pneumothorax #6. Paroxysmal atrial fibrillation, currently in sinus mechanism #7. History of underlying coronary artery disease #8. History of endovascular aortic repair #9. Abdominal wall hernia #10. Hypertension #11. History of CVA Plan: Clinic the patient has remained stable, there has been very scant output from the right-sided pigtail chest tube in the last 3 days No worsening dyspnea Chest x-ray showing stable right midlung opacity Clinically stable, no fever or chills We'll consult interventional radiology for removal of the chest tube today Follow-up chest x-ray today and tomorrow Antibiotics per ID service recommendations PICC line is already in place If remains stable she may considered for discharge home or ECF on IV antibiotics per ID service recs Continue oral anticoagulation Encouraged the patient to sit up in the chair, and deep breathing cough Increase activity as tolerated Stable for transfer out of intensive care unit today to medical surgical floor without telemetry I performed a history & physical examination of the patient and discussed their management with my nurse practitioner, Jacque Arvizu. I reviewed the nurse practitioner's note and agree with the documented findings and plan of care. Lung sounds are positive for dim breath sounds throughout the lung aden. The findings and the impression was discussed with the patient. I attest to the documentation by the nurse practitioner. Time with Patient: Greater than 30
[2021-08-14 11:36] LABS: Glucose,Whole Blood 305 mg/dL (75-99)
[2021-08-14 11:43] LABS: Glucose,Whole Blood 107 mg/dL (75-99)
[2021-08-14 12:23] LABS: Band Neutrophils % 1 %; Metamyelocytes % 2 %; Monocytes # (M) 0.18 k/uL (0-1.0); Myelocytes % 2 %; Neutrophils % (M) 89 %; Nucleated Red Blood Cells 1 /100 WBC (0-0); Total Cells Counted 200
[2021-08-14 12:24] LABS: Lymphocytes # (M) 1.09 k/uL (1.0-4.8); Metamyelocytes # (M) 0.36 k/uL (0); Myelocytes # (M) 0.36 k/uL (0); Polychromasia Present; WBC 18.1 k/uL (3.8-10.6)
[2021-08-14 16:29] LABS: Glucose,Whole Blood 158 mg/dL (75-99)
--- NOTE | 2021-08-14 18:20 | P.PN ---
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 Chronic stable medical conditions include coronary artery disease with stent, some mild right-sided weakness from prior stroke, hypertension, hyperlipidemia, obstructive sleep apnea uses CPAP machine, TB in 1985, hiatal hernia, surgery for thoracic aortic aneurysm, sleeve gastrectomy [place] [address] Hamilton. Home oxygen 4 L Patient was in the hospital from June 27 through 07/07/2021. Was admitted with right-sided pneumothorax, A. fib with rapid ventricular rate, acute pulmonary embolism. Was discharged to rehab. Was DO NOT RESUSCITATE. had presented today to Dr. Moreau hours office for fraud manager visit. Patient's had a congested cough. No fever no chills. Appetite is fair. Does use a walker. Lives with her daughter. X-ray had shown at the office are larger pasty all combining the right lung. With the large mix of fluid in there. Concern for lung abscess. As patient is admitted. She is not expe ctorating any sputum though she has a congested cough. Pigtail catheter was placed in the chest/abscess. Started on IV cefepime, vancomycin. August 04: About 300 mL of vaz take fluid drained today. Decreased appetite. Tired. 4 L nasal cannula. August 05: Laying in bed. Right-sided pigtail catheter draining well. 4 L nasal cannula. Eating somewhat better. Tired. Cough. August 06: Patient is feeling better. Drained 130 mL from the pigtail catheter 24 hours. Breathing better. Oral intake improving. Sitting up and eating lunch. Decreased cough. Cultures positive for Enterobacter cloacae. 3rd dose of alteplase/dornase through pigtail catheter today. August 07: Breathing better. Coughing up some yellow-green sputum. Eating better. No fever no chills. 170 mL output from the pigtail catheter in 24 hours. IV cefepime. Under the dose of alteplase/dornase given today August 08: Put on about 40-50 mL output from the pigtail catheter in the last 24 hours. Oral intake good. Last better and getting to the commode she desaturated. FiO2 which had been dropped to 2 L was increased back to 4 L. Had some air leak today. Some serosanguineous discharge. Appetite is good. Breathing better. Coughing up sputum. August 09: Continues with a cough and some yellow-green sputum. Some bloody output from the chest tube. About 1 50 mL. FiO2 is down to 2 L. Oral intake good. August 10: So the patient this morning. Output through the pigtail about 1 50 mL. On 3 L of nasal cannula. Cough with yellow sputum. Oral intake good. Later this afternoon patient had morealteplase/dornase, given and patient desaturated with some bloody output. moved to the ICU. August 11: ICU. On 4 L of nasal cannula. Eating some. No further hemoptysis. Breathing stable. Discussed with the patient insisted the bedside. Pigtail catheter drainage, 100 mL in last 24 hours August 12: ICU. Small amounts of hemoptysis. Blood-tinged output through the pigtail catheter. On 3 L nasal cannula. Eating better. Productive sputum. Breathing better. August 13: ICU. No further sputum production. Less than 50 mL of drainage last 24 hours. Breathing stable. Oral intake good. Eliquis resumed by pulmonary. August 14: ICU. Doing well. Sitting up in a chair. FiO2 dropper 3 L. Eating well. Pigtail catheter discontinued. IV cefepime. No sputum production. Oral intake good. Review of systems: Was done for constitutional, cardiovascular, GI, pulmonary. relevant finding as above Active Medications Acetaminophen (Acetaminophen Tab 325 Mg Tab) 650 mg PO Q6HR PRN PRN Reason: Fever and/ or Pain Last Admin: 08/13/21 22:20 Dose: 650 mg Documented by: Albuterol Sulfate (Albuterol Nebulized 2.5 Mg/3 Ml) 2.5 mg INHALATION RT-Q4H PRN PRN Reason: Shortness Of Breath Or Wheezing Last Admin: 08/10/21 03:32 Dose: 2.5 mg Documented by: Albuterol/Ipratropium (Ipratropium-Albuterol 3 Ml Neb) 3 ml INHALATION RT-QID [facility] Last Admin: 08/14/21 16:28 Dose: 3 ml Documented by: Apixaban (Apixaban 2.5 Mg Tablet) 2.5 mg PO BID [facility]; Protocol Last Admin: 08/14/21 08:29 Dose: 2.5 mg Documented by: Budesonide (Budesonide 1 Mg/2 Ml Nebu) 1 mg INHALATION RT-BID [facility] Last Admin: 08/14/21 08:48 Dose: Not Given Documented by: Formoterol Fumarate (Formoterol Fumarate 20 Mcg/2 Ml Nebu) 20 mcg INHALATION RT-BID [facility] Last Admin: 08/14/21 08:48 Dose: Not Given Documented by: Cefepime HCl 2 gm/ Sodium (Chloride) 100 mls @ 25 mls/hr IVPB Q8H [facility] Last Admin: 08/14/21 12:14 Dose: 25 mls/hr Documented by: Sodium Chloride (Saline 0.9%) 1,000 mls @ 75 mls/hr IV .[id number] [facility] Last Admin: 08/14/21 08:34 Dose: 75 mls/hr Documented by: Methylprednisolone Sodium Succinate (Methylprednisolone Sod Succi 40 Mg/Ml 1 Ml Vial) 40 mg IV Q12HR [facility] Last Admin: 08/14/21 08:29 Dose: 40 mg Documented by: Metoprolol Tartrate (Metoprolol Tartrate 50 Mg Tab) 50 mg PO TID@0800,1400,2000 [facility] Last Admin: 08/14/21 15:00 Dose: 50 mg Documented by: Miscellaneous Information (Pneumonia Protocol Utilized 1 Each Misc) 1 each PO ONCE PRN PRN Reason: Per Protocol Pantoprazole Sodium (Pantoprazole 40 Mg Tablet) 40 mg PO [id number] [facility] Last Admin: 08/14/21 07:02 Dose: 40 mg Documented by: Sodium Chloride (Sodium Chloride 0.9% Flush 10 Ml Syringe) 10 ml IV Q4HR PRN PRN Reason: PICC Line Sodium Chloride (Sodium Chloride 0.9% Flush 10 Ml Syringe) 10 ml IV WEEKLY [facility] Sodium Chloride (Sodium Chloride 0.9% Flush 10 Ml Syringe) 20 ml IV Q4HR PRN PRN Reason: PICC Line Past medical history to include: Coronary artery disease with stent, COPD, stroke with some mild right-sided weakness, hyperlipidemia, hypertension, obstructive sleep apnea uses CPAP, TB 1985, hiatal hernia, sleeve gastrectomy in 2017, surgery for thoracic aortic aneurysm, 4 L of oxygen at home, atrial fibrillation, pulmonary embolism June 2021 Social history: Started smoking age of 15 stopped in 2011. One pack a day. Alcohol occasionally. Lives with her daughter. Uses walker. Family history: [place], pacemaker, COPD Physical examination: VITAL SIGNS: 98.4, 64, 22, 161/80, 96% on 3 L GENERAL: , Up in a chair comfortable EYES: Pupils equal. Conjunctiva normal. HEENT: External appearance of nose and ears normal, oral cavity grossly normal. NECK: JVD not raised; masses not palpable. HEART: First and second heart sounds are normal; no edema. LUNGS: Respiratory rate increased; decreased breath sounds. Right-sided chest pigtail catheter-discontinued ABDOMEN: Soft, nontender, liver spleen not palpable, no masses palpable. PSYCH: Alert and oriented x3; mood and affect tired. MUSCULOSKELETAL:No Clubbing/cyanosis;muscles-grossly intact NEUROLOGICAL: Cranial nerves grossly intact; no facial asymmetry, power and sensation grossly intact. INVESTIGATIONS, reviewed in the clinical context: August 14: White count 18.1 hemoglobin 8.3 platelets 458 August 13: White count 15.5 hemoglobin 7.5 potassium 4.2 creatinine 0.53 August 11: White count 16.3 hemoglobin 7.3 platelets 383 potassium 4.6 creatinine 0.43. Chest x-ray abscess appears much reduced Sputum culture: Pseudomonas aeruginosa, stenotrophomonas maltophilia Abscess culture: Enterobacter cloacae August 11 white count 8.9 hemoglobin 7.7 platelets 364 potassium 4.8 creatinine 0.39 August 10: White count 11.8 hemoglobin 8.2 potassium 4.6 creatinine 0.3 pro-jenna citonin 0.16. Chest x-ray reported to be unchanged August 07: Potassium 4.2 creatinine 0.47. Chest x-ray fluid level seen. August 06: White count 7.3 hemoglobin 9.9 platelets 29 potassium 3.9 creatinine 0.3 August 05: White count 11.9 hemoglobin 9.9 platelets 267 potassium 3.8 creatinine 0.43 August 04: White count 7.1 hemoglobin 10.4 potassium 4.3 creatinine 0.44 White count 9.6 hemoglobin 14.3 platelets 243 sodium 135 potassium 2.9 creatinine 0.58 CRP 17.9 albumin 2.9 Coronavirus/influenza type A/influenza type B/urine Legionella antigen: Not detected EKG tracing personally reviewed by me-rate [email or web address]. Sinus rhythm. Nonspecific T- wave changes Chest x-ray film personally reviewed by [id number] lung mass with a air- fluid level Computed tomography scan chest with contrast: Large mix fluid and air rounded collection in the right upper lobe dense/12 cm. Congestion subsegment consolidation. Bronchopulmonary fistula not excluded. See report for more details Assessment and plan: -Large lung abscess right upper lobe measuring 10/12 cm. lung abscess. : Improving August 03: Pigtail catheter - by interventional radiology. Continue with bronchodilators. IV /cefepime. alteplase/dornase through pigtail catheter . Cultures: Enterobacter cloacae. August 14 pigtail catheter removed -Episode of acute hypoxic on August 10 following installation ofalteplase/dornase: Improved . - hemoptysis following alteplase: Resolved . -Right-sided pneumonia growing:Pseudomonas aeruginosa, stenotrophomonas maltophilia: Improving IV cefepime, -Paroxysmal atrial fibrillation Currently sinus rhythm Lopressor 12.5 mg 3 times a day -Chronic hypoxic respiratory failure from COPD On home oxygen 4 -Pulmonary embolism June Eliquis. Resumed -Acute normocytic neck no anemia secondary to blood loss from hemoptysis and some bloody drainage through the pigtail catheter. Hemodynamically stable IV Ferrlecit. -COPD exacerbation in an ex-smoker- on bronchodilators, -Coronary artery disease with stent Lopressor, -Mild right hemiparesis from prior stroke -Hypokalemia: Replace Replace potassium -Essential hypertension, Lopressor 50 mg 3 times a day -Obstructive sleep apnea uses CPAP continue the same -Hiatal hernia -History of sleeve gastrectomy -Chronic medical debility Will need PT OT when chest tube is out IV cefepime, incentive spirometry. Eliquis . Pigtail catheter removed. Patient has a PICC line. Discharge when okay with ID. And pulmonary..
[2021-08-14] MEDS: SODIUM CHLORIDE 0.9% 500 ML 500 ML IV SCH (19:37)
[2021-08-14] MEDS ORDERED: CALCIUM CARBONATE 500 MG CHEWABLE PO PRN (21:29)
--- NOTE | 2021-08-14 21:40 | P.PN ---
Subjective Progress Note Date: 08/14/21 Principal diagnosis: Pneumonia and empyema Patient is a 71-year female presented to hospital with shortness of breath and cough this we did have evidence of right-sided pneumonia and empyema status post chest tube placement culture has been positive for Enterobacter. P atient did have worsening shortness of breath and hemoptysis for the patient was transferred to the ICU on 08/10/2021, the patient's chest tube was discontinued on 08/14/2021 On today's evaluation there is 08/14/2021 the patient denies any fever or chills, the patient is breathing comfortably on nasal cannula oxygen, the patient right- sided chest pain is controlled with the current pain medication, the patient cough cough decreased intensity and not bringing up any sputum, no vomiting no abdominal pain no diarrhea Objective - Vital Signs Vital signs: Vital Signs Temp 98.4 F 08/14/21 14:57 Pulse 64 08/14/21 19:36 Resp 22 08/14/21 14:57 BP 161/80 08/14/21 14:57 Pulse Ox 96 08/14/21 14:57 Intake & Output 08/14/21 08/14/21 08/15/21 06:59 18:59 06:59 Intake Total 820 150 Output Total 910 385 Balance -90 -235 Weight 78 kg Intake: IV 700 150 Cefepime 2 gm In Sodium 100 Chloride 0.9% 100 ml @ 25 mls/hr IVPB Q8H BRE Rx#: [id number] Sodium Chloride 0.9% 1, 600 150 000 ml @ 75 mls/hr IV . [id number] BER Rx#:[id number] Oral 120 Output: Chest Tube Drainage 0 10 right posterior chest 0 10 Urine 910 375 Other: Voiding Method Indwelling Catheter Bedside Commode - Exam GENERAL DESCRIPTION: Elderly female up in the chair, no distress. No tachypnea or accessory muscle of respiration use. LUNGS: Unlabored breathing. Decreased breath sounds at the base HEART: S1, S2, regular rate and rhythm. No loud murmur ABDOMEN: Soft, no tenderness , guarding or rigidity, no organomegaly EXTREMITIES: No edema of feet. - Labs CBC & Chem 7: 08/14/21 08:40 08/13/21 07:02 Labs: Abnormal Lab Results - Last 24 Hours (Table) 0108/14/21 08/14/21 Range/Units 06:37 08:40 11:35 WBC 18.1 H (3.8-10.6) k/uL RBC 2.73 L (3.80-5.40) m/uL Hgb 8.3 L (11.4-16.0) gm/dL Hct 27.7 L (34.0-46.0) % MCV 101.7 H (80.0-100.0) fL MCHC 30.1 L (31.0-37.0) g/dL RDW 16.8 H (11.5-15.5) % Plt Count 458 H (150-450) k/uL Neutrophils # (Manual) 16.20 H (1.3-7.7) k/uL Metamyelocytes # (Man) 0.36 H (0) k/uL Myelocytes # (Manual) 0.36 H (0) k/uL Nucleated RBCs 1 H (0-0) /100 WBC POC Glucose (mg/dL) 102 H 305 H (75-99) mg/dL 08/14/21 08/14/21 Range/Units 11:42 16:28 WBC (3.8-10.6) k/uL RBC (3.80-5.40) m/uL Hgb (11.4-16.0) gm/dL Hct (34.0-46.0) % MCV (80.0-100.0) fL MCHC (31.0-37.0) g/dL RDW (11.5-15.5) % Plt Count (150-450) k/uL Neutrophils # (Manual) (1.3-7.7) k/uL Metamyelocytes # (Man) (0) k/uL Myelocytes # (Manual) (0) k/uL Nucleated RBCs (0-0) /100 WBC POC Glucose (mg/dL) 107 H 158 H (75-99) mg/dL Microbiology - Last 24 Hours (Table) 08/03/21 15:45 Acid Fast Bacilli Smear - Final Aspirate Acid Fast Bacilli Culture - Preliminary Assessment and Plan (1) Empyema Current Visit: Yes Status: Acute Code(s): J86.9 - PYOTHORAX WITHOUT FISTULA SNOMED Code(s): 299818419 (2) Pneumonia Current Visit: No Status: Acute Code(s): J18.9 - PNEUMONIA, UNSPECIFIED ORGANISM SNOMED Code(s): 537225571 Plan: 1-Patient with right-sided pneumonia and empyema in this patient is post chest tube placement culture has been positive for Enterobacter, for which the patient to continue with cefepime 2 g every 8hr 2-patient's sputum is now showing Pseudomonas and stenotrophomonas that is sensitive to Fortaz and should be covered with a cefepime the patient is currently on and continue supportive care Time with Patient: Less than 30
[2021-08-15 01:09] LABS: Glucose,Whole Blood 162 mg/dL (75-99)
[2021-08-15] MEDS: SODIUM CHLORIDE 0.9% 500 ML 500 ML IV SCH (01:29)
[2021-08-15] MEDS: CEFEPIME 2 GM in SODIUM CHLORIDE 0.9% 100 ML IVPB SCH ×2 (03:16→11:53)
[2021-08-15] MEDS: PANTOPRAZOLE 40 MG TABLET PO SCH (07:01)
[2021-08-15 07:08] LABS: Glucose,Whole Blood 127 mg/dL (75-99)
[2021-08-15] MEDS: methylPREDNISolone SOD SUCCI 40 MG/ML 1 ML VIAL IV SCH (08:17)
[2021-08-15] MEDS: METOPROLOL TARTRATE 50 MG TAB PO SCH ×2 (08:17→14:43)
[2021-08-15] MEDS: APIXABAN 2.5 MG TABLET PO SCH (08:17)
[2021-08-15] MEDS: BUDESONIDE 1 MG/2 ML NEBU INHALATION SCH (08:51)
[2021-08-15] MEDS: FORMOTEROL FUMARATE 20 MCG/2 ML NEBU INHALATION SCH (08:51)
[2021-08-15] MEDS: IPRATROPIUM-ALBUTEROL 3 ML NEB INHALATION SCH ×3 (08:51→15:12)
[2021-08-15] MEDS ORDERED: predniSONE 20 MG TAB PO SCH (09:00)
--- NOTE | 2021-08-15 10:09 | P.PN ---
Subjective Progress Note Date: 08/15/21 This is a 71-year-old female patient who was recently hospitalized for an extensive right lung pneumonia. The patient was seen in our office yesterday the patient was found to have a large opacity involving the right lung. Based on that, the patient was referred for a computed tomography scan of the chest and the patient was found to have a 10 x 11 x 12 cm large mix fluid and air rounded collection in the right upper lobe very much consistent with a lung abscess. There was also adjacent consolidation. At the same time, the patient has postsurgical changes involving the thoracic aorta with endovascular stent. Based on this, the patient was admitted to the hospital. Patient is currently on 4 L about 2 by nasal cannula. She has a congested cough. No significant fever. No significant sputum production. The blood work is showing a white cell count 9.6 with hemoglobin 14.3 and a platelet count of 243. Creatinine is at 14 with a creatinine of 0.5 and a sodium level of 135. We think that this was a gram-negative pneumonia knowing that the patient's previous [place] that occurred back in June 2021 showed a possible culture with pseudomonas aeruginosa. At the time of discharge she was given antibiotics the patient was given a prednisone burst taper. She was not given antibiotics based on my review of the records. At the same time, the patient was given anticoagulation for a pulmonary embolism in the right middle/right lower lobe pulmonary artery secondary branches. She also has history approximately atrial fibrillation and current cardiac rhythm is sinus. She has chronic hypoxic respiratory failure maintained on oxygen at 4 L per minute nasal cannula. She has advanced COPD and she has an FEV1 of 49% of predicted. She is currently admitted to the hospital for further The patient is seen today in 08/04/2021 in follow-up on the regular medical floor. She is currently resting comfortably in bed. Awake and alert in no acute distress. Maintaining O2 saturations in the mid 90s on 4 L/m per nasal cannula. Afebrile. Hemodynamically stable. This morning she had undergone a CT-guided right-sided chest tube insertion for suspected pulmonary as abscess. She had a pigtail catheter placed by interventional radiology. 300 mL of purulent thick drainage was returned. Follow-up chest x-ray reveals slightly diminished size of the right lung abscess. Catheters within the region. She had been seen by CT services and alteplase injection will be performed as well. Cultures pending. White count 7.1. Hemoglobin 10.4. Sodium 141. Potassium 4.3. Creatinine 0.44. She's been initiated on vancomycin, cefepime and azithromycin. Continued on bronchodilators. We'll add incentive spirometer. The patient is seen today 08/05/2021 follow-up on the regular medical floor. She is awake and alert in no acute distress. Breathing easier today compared to yesterday. Maintaining O2 saturations in the low 90s on room air. She's been afebrile. Hemodynamically stable. Chest x-ray continues to show significant interval reduction in the right lung abscess which contains the pigtail drainage catheter. Preliminary pleural fluid cultures are positive for gram-negative bacilli. Blood cultures reveal no growth. White count 11.9. Hemoglobin 9.9. Platelets 267. Sodium 137. Potassium 3.8. Creatinine 0.43. Glucose 85. Vancomycin trough 13.7. She remains on vancomycin and cefepime. The patient is seen today 08/08/2021 in follow-up on the regular medical floor. She is currently resting comfortably in bed. Awake and alert in no acute distress. Maintaining good O2 saturations up to 100% on 2 L/m per nasal cannula. She's afebrile. Hemodynamically stable. Chest x-ray continues to reveal a stable right midlung pigtail catheter in place with increasing opacity at the level suggest of recurrent fluid in the cavitary lesion. Chronic emphysematous changes stable. Tiny pleural effusions, stable. She has received alteplase 4 most recently yesterday. Drainage is subsided today but once the catheters flushed it has picked up again. She remains on cefepime. Continued on bronchodilators. Lovenox for DVT prophylaxis. The patient is seen today 08/10/2021 in follow-up on the regular medical floor. She is currently sitting up in bed. Awake and alert. Earlier this morning she was receiving alteplase per 2 services and started coughing episode. She did cough up moderate amount of blood. She became quite short of breath and had difficulty recovering. She was placed on liters high flow nasal cannula. Chest x-ray was done and revealed a stable right upper lobe opacity with pigtail catheter in place. There is bibasilar atelectasis. Small effusions. Stable compared to previous. Evidence of aortic stent. Sputum culture is revealing evidence of pseudomonas. Pleural fluid cultures were positive for Enterobacter. White count 11.8. Hemoglobin 8.2. Sodium 139. Potassium 4.6. Creatinine 0.3. AST 12. ALT 6. Pro-calcitonin 0.16. She is continued on DuoNeb inhalations, antibiotics in the form of cefepime. Lovenox was placed on hold. The patient is seen today 08/15/2021 in follow-up on the intensive care unit. She is currently sitting up in a chair at the bedside. Awake and alert in no acute distress. Down to 3 L/m per nasal cannula. Normal saline at 10 MLS per hour. Pigtail catheter has been removed. Sputum culture was positive for pseudomonas aeruginosa and stenotrophomonas maltophilia. The glucose 127. She remains on cefepime. Anticoagulated with Eliquis. Continued on bronchodilators. Objective - Vital Signs Vital signs: Vital Signs Temp 98.1 F 08/15/21 08:00 Pulse 63 08/15/21 09:04 Resp 20 08/15/21 09:04 BP 157/74 08/15/21 08:00 Pulse Ox 97 08/15/21 02:00 Intake & Output 08/14/21 08/15/21 08/15/21 18:59 06:59 18:59 Intake Total 150 830 Output Total 385 1550 Balance -235 -720 Intake: IV 150 110 Cefepime 2 gm In Sodium 100 Chloride 0.9% 100 ml @ 25 mls/hr IVPB Q8H BRE Rx#: [id number] Sodium Chloride 0.9% 1, 150 10 000 ml @ 75 mls/hr IV . [id number] BRE Rx#:[id number] Oral 720 Output: Chest Tube Drainage 10 right posterior chest 10 Urine 375 1550 Other: Voiding Method Bedside Commode Bedside Commode - Exam GENERAL EXAM: Alert, pleasant 71-year-old female patient, on 3 L/m nasal cannula O2 saturations up to 97%, comfortable in no apparent distress. HEAD: Normocephalic. EYES: Normal reaction of pupils, equal size. NOSE: Clear with pink turbinates. THROAT: No erythema or exudates. NECK: No masses, no JVD. CHEST: No chest wall deformity. LUNGS: Equal air entry with dullness and scattered rhonchi over the right lung. CVS: S1 and S2 normal with no audible murmur, regular rhythm. ABDOMEN: No hepatosplenomegaly, normal bowel sounds, no guarding or rigidity. SPINE: No scoliosis or deformity SKIN: No rashes CENTRAL NERVOUS SYSTEM: No focal deficits, tone is normal in all 4 extremities. EXTREMITIES: There is no peripheral edema. No clubbing, no cyanosis. Peripheral pulses are intact. - Labs CBC & Chem 7: 08/14/21 08:40 08/13/21 07:02 Labs: Abnormal Lab Results - Last 24 Hours (Table) 08/14/21 08/14/21 08/14/21 Range/Units 08:40 11:35 11:42 WBC 18.1 H (3.8-10.6) k/uL Neutrophils # (Manual) 16.20 H (1.3-7.7) k/uL Metamyelocytes # (Man) 0.36 H (0) k/uL Myelocytes # (Manual) 0.36 H (0) k/uL Nucleated RBCs 1 H (0-0) /100 WBC POC Glucose (mg/dL) 305 H 107 H (75-99) mg/dL 08/14/21 08/15/21 08/15/21 Range/Units 16:28 01:08 07:06 WBC (3.8-10.6) k/uL Neutrophils # (Manual) (1.3-7.7) k/uL Metamyelocytes # (Man) (0) k/uL Myelocytes # (Manual) (0) k/uL Nucleated RBCs (0-0) /100 WBC POC Glucose (mg/dL) 158 H 162 H 127 H (75-99) mg/dL Microbiology - Last 24 Hours (Table) 08/03/21 15:45 Acid Fast Bacilli Smear - Final Aspirate Acid Fast Bacilli Culture - Preliminary Assessment and Plan Assessment: 1 Right lung abscess. The patient has a complex 10 x 11 x 12 cm fluid-filled cavity in the right upper lobe consistent with a lung abscess that followed an extensive gram-negative right lung pneumonia. The patient was Hospital as back in June 2021 and at that time the patient had Pseudomonas bacteremia secondary to pneumonia. She did receive a pigtail catheter placement 08/04/2021 and subsequently removed on 08/14/2021. Initial pleural fluid cultures are positive for Enterobacter cloacae. Sputum culture revealing a Pseudomonas aeruginosa and stem stroke, Stenotrophomonas maltophilia. Remains on cefepime. She also received alteplase and dornase per CT services. 2 History of an extensive right lung pneumonia with secondary pseudomonas aeruginosa septicemia hospitalized back in June 2021. The blood culture was positive on 07/03/2021 3 History of pulmonary embolism diagnosed during her most recent hospitalization and the patient was found to have clotting in the right lower lobe pulmonary artery branches and the patient was given Eliquis. 4 Severe COPD with an FEV1 of 49% of predicted at baseline 5 Acute spontaneous right-sided pneumothorax, status post smallbore chest tube placement and subsequent removal, follow-up chest x-ray shows no evidence of pneumothorax 6 Paroxysmal atrial fibrillation, currently in sinus mechanism 7 History of underlying coronary artery disease 8 History of endovascular aortic repair 9 Abdominal wall hernia 10 Hypertension 11 History of CVA Plan: The patient was seen and evaluated Cleared for transfer out of the ICU and possibly even home today Antibiotics per ID services PICC line remains in place Continue incentive spirometer Continue bronchodilators Increase her activity as tolerated We will continue to follow I, the cosigning physician, performed a history & physical examination of the patient. Lungs sounds with scattered rhonchi, diminished over the right lung. Maintaining O2 saturations in the 90s on 3 L/m per nasal cannula. I discussed the assessment and plan of care with my nurse practitioner, Gaby Alcazar. I attest to the above note as dictated by her.
[2021-08-15 11:50] LABS: Glucose,Whole Blood 111 mg/dL (75-99)
--- NOTE | 2021-08-15 13:02 | P.DS ---
Providers Date of admission: 08/02/21 20:27 Expected date of discharge: 08/15/21 Attending physician: Murali Masters Consults: 08/03/21 12:18 Consult Physician Routine Consulting Provider: Qamar Briseno Consult Reason/Comments: Possible TPA infusions, empyema Do you want consulting provider notified?: Already Contacted 08/07/21 14:26 Consult Physician Routine Consulting Provider: Cl Vital Consult Reason/Comments: empyema/parapneumonic pleural effusion Do you want consulting provider notified?: Yes Primary care physician: Gonsalo Iraheta [facility] Course: Chief Complaint: Cough History of presenting complaint: Very pleasant 71-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 Chronic stable medical conditions include coronary artery disease with stent, some mild right-sided weakness from prior stroke, hypertension, hyperlipidemia, obstructive sleep apnea uses CPAP machine, TB in 1985, hiatal hernia, surgery for thoracic aortic aneurysm, sleeve gastrectomy [place] [address] Hamilton. Home oxygen 4 L Patient was in the hospital from June 27 through 07/07/2021. Was admitted with right-sided pneumothorax, A. fib with rapid ventricular rate, acute pulmonary embolism. Was discharged to rehab. Was DO NOT RESUSCITATE. had presented today to Dr. Moreau hours office for steward/stewardess second visit. Patient's had a congested cough. No fever no chills. Appetite is fair. Does use a walker. Lives with her daughter. X-ray had shown at the office are larger pasty all combining the right lung. With the large mix of fluid in there. Concern for lung abscess. As patient is admitted. She is not expectorating any sputum though she has a congested cough. Pigtail catheter was placed in the chest/abscess. Started on IV cefepime, vancomycin. Patient drained well for the pigtail catheter. Sputum Cultures were positive for pseudomonas aeruginosa, Stenotrophomonas maltophilia. Chest fluid was positive for Enterobacter cloacae. Vancomycin was discontinued. Patient oxygen also improved. alteplase/dornase a few times through pigtail catheter. Patient also developed some hemoptysis and blood to the pigtail catheter. Has patient was brought to the ICU. August 15: Sitting up in a chair. Eating well. Pigtail catheter was removed yesterday. Patient is back on eliquis. FiO2 down to 3 L. No sputum production. Patient wanted to go home and her daughters COVID. Discussed with the patient. The risk of for acquiring: COVID specially given her pulmonary status. Patient is agreed to go to [facility] for rehab. Per ID patient will get 2 more weeks of IV cefepime. Discussion and discharge planning more than 35 minutes Consultation: Dr. Hutchinson partners from pulmonary Dr. Vital from [facility] Past medical history to include: Coronary artery disease with stent, COPD, stroke with some mild right-sided weakness, hyperlipidemia, hypertension, obstructive sleep apnea uses CPAP, TB 1985, hiatal hernia, sleeve gastrectomy in 2017, surgery for thoracic aortic aneurysm, 4 L of oxygen at home, atrial fibrillation, pulmonary embolism June 2021 Social history: Started smoking age of 15 stopped in 2011. One pack a day. Alcohol occasionally. Lives with her daughter. Uses walker. Family history: ID, pacemaker, COPD Physical examination: VITAL SIGNS: 98.1, 55, 22, 1 57 x 74, 97% on 3 L GENERAL: , Up in a chair, eating lunch comfortable EYES: Pupils equal. Conjunctiva normal. HEENT: External appearance of nose and ears normal, oral cavity grossly normal. NECK: JVD not raised; masses not palpable. HEART: First and second heart sounds are normal; no edema. LUNGS: Respiratory rate increased; decreased breath sounds. Dressing on the right chest wall posteriorly at the pig tail catheter site ABDOMEN: Soft, nontender, liver spleen not palpable, no masses palpable. PSYCH: Alert and oriented x3; mood and affect tired. MUSCULOSKELETAL:No Clubbing/cyanosis;muscles-grossly intact NEUROLOGICAL: Cranial nerves grossly intact; no facial asymmetry, power and sensation grossly intact. INVESTIGATIONS, reviewed in the clinical context: August 14: White count 18.1 hemoglobin 8.3 platelets 458 Sputum culture: Pseudomonas aeruginosa, stenotrophomonas maltophilia Abscess culture: Enterobacter cloacae White count 9.6 hemoglobin 14.3 platelets 243 sodium 135 potassium 2.9 creatinine 0.58 CRP 17.9 albumin 2.9 Coronavirus/influenza type A/influenza type B/urine Legionella antigen: Not detected EKG tracing personally reviewed by me-rate [email or web address]. Sinus rhythm. Nonspecific T- wave changes Chest x-ray film personally reviewed by [id number] lung mass with a air- fluid level Computed tomography scan chest with contrast: Large mix fluid and air rounded collection in the right upper lobe dense/11/12 cm. Congestion subsegment consolidation. Bronchopulmonary fistula not excluded. See report for more details Assessment and plan: -Large lung abscess right upper lobe measuring 10/12 cm. lung abscess. : Improving August 03: Pigtail catheter - by interventional radiology. Continue with bronchodilators. IV /cefepime. alteplase/dornase through pigtail catheter . Cultures: Enterobacter cloacae. August 14 pigtail catheter removed IV cefepime upon discharge for 2 more weeks -Episode of acute hypoxic on August 10 following installation ofalte plase/dornase: Improved . - hemoptysis following alteplase: Resolved -Right-sided pneumonia growing:Pseudomonas aeruginosa, stenotrophomonas maltophilia: Improving IV cefepime, -Paroxysmal atrial fibrillation Currently sinus rhythm Lopressor 12.5 mg 3 times a day -Chronic hypoxic respiratory failure from COPD On home oxygen 4 -Pulmonary embolism June. Resumed -Acute normocytic neck no anemia secondary to blood loss from hemoptysis and some bloody drainage through the pigtail catheter. Hemodynamically stable IV Ferrlecit. -COPD exacerbation in an ex-smoker- on bronchodilators, -Coronary artery disease with stent Lopressor, -Mild right hemiparesis from prior stroke -Hypokalemia: Replace Replace potassium -Essential hypertension, Lopressor 50 mg 3 times a day -Obstructive sleep apnea uses CPAP continue the same -Hiatal hernia -History of sleeve gastrectomy -Chronic medical debility PTOT Disposition: Inpatient rehab at [facility] Plan - Discharge Summary Discharge Rx Participant: No New Discharge Prescriptions: New Cefepime [Maxipime] 2 gm IVPB Q8H #42 each Apixaban [Eliquis] 2.5 mg PO BID tablet predniSONE 10 mg PO DAILY #30 tab Continue Albuterol Nebulized [Ventolin Nebulized] 2.5 mg INHALATION RT-QID PRN PRN Reason: Shortness Of Breath Omeprazole 40 mg PO DAILY Fluticasone/Umeclidin/Vilanter [Trelegy Ellipta 100-62.5-25] 1 puff INHALATION RT-DAILY Ipratropium-Albuterol Nebulize [Duoneb 0.5 mg-3 mg/3 ml Soln] 3 ml INHALATION RT-QID ml Metoprolol Tartrate [Lopressor] 50 mg PO TID@0800,1400,1999 Discontinued Apixaban [Eliquis] 5 mg PO BID 30 Days #60 tab Furosemide [Lasix] 20 mg PO DAILY #30 tab Potassium Chloride ER [K-Dur 10] 10 meq PO DAILY Discharge Medication List Albuterol Nebulized [Ventolin Nebulized] 2.5 mg INHALATION RT-QID PRN 09/14/20 [History] Fluticasone/Umeclidin/Vilanter [Trelegy Ellipta 100-62.5-25] 1 puff INHALATION RT-DAILY 06/27/21 [History] Omeprazole 40 mg PO DAILY 06/27/21 [History] Ipratropium-Albuterol Nebulize [Duoneb 0.5 mg-3 mg/3 ml Soln] 3 ml INHALATION RT-QID ml 07/07/21 [Rx] Metoprolol Tartrate [Lopressor] 50 mg PO TID@0800,1399,199908/02/21 [History] Apixaban [Eliquis] 2.5 mg PO BID tablet 08/15/21 [Rx] Cefepime [Maxipime] 2 gm IVPB Q8H #42 each 08/15/21 [Rx] predniSONE 10 mg PO DAILY #30 tab 08/15/21 [Rx] Follow up Appointment(s)/Referral(s): Kaylin Cortes MD [STAFF PHYSICIAN] - 1 Week [facility], [NON-STAFF] - 1-2 Days Gonsalo Phan DO [Primary Care Provider] - 1-2 days [facility],Infusion [NON-STAFF] - Cl Vital MD [STAFF PHYSICIAN] - 1 Week Activity/Diet/Wound Care/Special Instructions: Please call weekend [facility] IF discharged over weekend: #[phone].
[2021-08-15 14:46] VITALS: BP 151/80; PULSE 60; RESP 22; TEMP 98.5
[2021-08-16 14:56] LABS: S.pneumoniae Serotype 1 (1) 0.8 mcg/mL (>=2.3); S.pneumoniae Serotype 10A (34) 0.7 mcg/mL (>=2.9); S.pneumoniae Serotype 12F (12) <0.4 mcg/mL (>=0.6); S.pneumoniae Serotype 14 (14) 0.4 mcg/mL (>=7.0); S.pneumoniae Serotype 15B (54) <0.4 mcg/mL (>=3.3); S.pneumoniae Serotype 18C (56) 0.5 mcg/mL (>=3.3); S.pneumoniae Serotype 19A (57) 1.9 mcg/mL (>=17.1); S.pneumoniae Serotype 19F (19) 1.5 mcg/mL (>=15.0); S.pneumoniae Serotype 20 (20) <0.4 mcg/mL (>=1.3); S.pneumoniae Serotype 22F (22) 3.7 mcg/mL (>=7.2); S.pneumoniae Serotype 23F (23) 6.4 mcg/mL (>=8.0); S.pneumoniae Serotype 3 (3) 0.9 mcg/mL (>=1.8); S.pneumoniae Serotype 4 (4) <0.4 mcg/mL (>=0.6); S.pneumoniae Serotype 5 (5) 22.5 mcg/mL (>=10.7); S.pneumoniae Serotype 6B (26) 1.6 mcg/mL (>=4.7); S.pneumoniae Serotype 7F (51) 4.8 mcg/mL (>=3.2); S.pneumoniae Serotype 8 (8) <0.4 mcg/mL (>=2.9)
== END 2021-08-15 15:26 | DRG 177 ==
LOC: EC 16:48 → 5NMEDONC 20:27 → 3NCARDOBS 08-03 06:08 → 5NMEDONC 08-04 17:30 → 2SICU 08-10 12:52
PROVIDERS: ADMIT Hospitalist; ATTEND Hospitalist
PROC: 0B9D3ZX Drainage of Right Middle Lung Lobe, Percutaneous Approach, Diagnostic (ICD-10-PCS; principal; 2021-08-04)
PROC: 0W9930Z Drainage of Right Pleural Cavity with Drainage Device, Percutaneous Approach (ICD-10-PCS; principal; 2021-08-04)
PROC: 3E0L3GC Introduction of Other Therapeutic Substance into Pleural Cavity, Percutaneous Approach (ICD-10-PCS; 2021-08-09)
PROC: 02HV33Z Insertion of Infusion Device into Superior Vena Cava, Percutaneous Approach (ICD-10-PCS; 2021-08-10)
DX: J85.1 Abscess of lung with pneumonia (principal); J15.6 Pneumonia due to other Gram-negative bacteria; J15.1 Pneumonia due to Pseudomonas; J44.0 Chronic obstructive pulmonary disease with (acute) lower respiratory infection; J44.1 Chronic obstructive pulmonary disease with (acute) exacerbation; J91.8 Pleural effusion in other conditions classified elsewhere; J93.82 Other air leak; I69.351 Hemiplegia and hemiparesis following cerebral infarction affecting right dominant side; J94.8 Other specified pleural conditions; R04.2 Hemoptysis; J96.11 Chronic respiratory failure with hypoxia; J98.11 Atelectasis; E66.9 Obesity, unspecified; E78.5 Hyperlipidemia, unspecified; E87.6 Hypokalemia; Z87.891 Personal history of nicotine dependence; F32.A Depression, unspecified; G47.33 Obstructive sleep apnea (adult) (pediatric); I10 Essential (primary) hypertension; Z99.81 Dependence on supplemental oxygen; Z20.822 Contact with and (suspected) exposure to COVID-19; I25.10 Atherosclerotic heart disease of native coronary artery without angina pectoris; I25.2 Old myocardial infarction; Z66 Do not resuscitate; I48.0 Paroxysmal atrial fibrillation; I71.9 Aortic aneurysm of unspecified site, without rupture; Z86.11 Personal history of tuberculosis; Z90.49 Acquired absence of other specified parts of digestive tract; Z98.890 Other specified postprocedural states; K43.9 Ventral hernia without obstruction or gangrene; K44.9 Diaphragmatic hernia without obstruction or gangrene; Y95 Nosocomial condition; Z79.01 Long term (current) use of anticoagulants; Z79.899 Other long term (current) drug therapy; Z82.49 Family history of ischemic heart disease and other diseases of the circulatory system; Z98.84 Bariatric surgery status; Z95.5 Presence of coronary angioplasty implant and graft; Z87.09 Personal history of other diseases of the respiratory system; Z86.711 Personal history of pulmonary embolism; Z85.828 Personal history of other malignant neoplasm of skin; Z82.5 Family history of asthma and other chronic lower respiratory diseases; Z80.9 Family history of malignant neoplasm, unspecified; Z88.1 Allergy status to other antibiotic agents; Z88.0 Allergy status to penicillin; Z88.2 Allergy status to sulfonamides
CPT/HCPCS: 32551; 36415; 36573; 71045; 71046; 71250; 71260; 80048; 80053; 80202; 81003; 82150; 82565; 83605; 83615; 83735; 84145; 84157; 84484; 84520; 85025; 85027; 85610; 86140; 86317; 87040; 87070; 87075; 87077; 87102; 87116; 87186; 87205; 87206; 87449; 87502; 87635; 88173; 88305; 89050; 93005; 94640; 94760; 96365; 96367; 99284